=== PATIENT | male | born 1950 | race Caucasian/White ===

== ENCOUNTER → 2016-10-26 | Outpatient (CLI) | payer OTHER, MEDICARE ==
[2016-10-26 09:27] LABS: Basophils # (A) 0.1 k/uL (0-0.2); Basophils % (A) 1 %; CH 28.4; CHCM 34.9; Eosinophils # (A) 0.2 k/uL (0-0.7); Eosinophils % (A) 2 %; HCT 37.6 % (39.0-53.0); HDW 3.06; HGB 12.5 gm/dL (13.0-17.5); Luc # (Auto) 0.15; Luc % (Auto) 2; Lymphocytes # (A) 1.4 k/uL (1.0-4.8); Lymphocytes % (A) 19 %; MCH 27.2 pg (25.0-35.0); MCHC 33.2 g/dL (31.0-37.0); MCV 81.8 fL (80.0-100.0); Mean Platelet Volume 6.6; Monocytes # (A) 0.6 k/uL (0-1.0); Monocytes % (A) 8 %; Neutrophils # (A) 5.3 k/uL (1.3-7.7); Neutrophils % (A) 69 %; RBC 4.59 m/uL (4.30-5.90); RDW 15.2 % (11.5-15.5); WBC 7.6 k/uL (3.8-10.6); WBC (Perox) 7.52
[2016-10-26 09:46] LABS: Appearance,Urine Clear (Clear); Bilirubin,Urine Negative (Negative); Glucose,Urine (UA) 2+ (Negative); Ketones,Urine Negative (Negative); Leukocyte Esterase,Urine Negative (Negative); Mucus,Urine Rare /hpf; Nitrite,Urine Negative (Negative); Particle Count 812; Protein,Urine 1+ (Negative); UA Billing (MACRO vs. MICRO) MICRO; Urobilinogen,Urine <2.0 mg/dL (<2.0); WBC,Urine <1 /hpf (0-5)
[2016-10-26 10:35] LABS: Anion Gap 12 mmol/L; Blood Urea Nitrogen 31 mg/dL (9-20); Calcium 9.2 mg/dL (8.4-10.2); Carbon Dioxide 23 mmol/L (22-30); Chloride 106 mmol/L (98-107); Glucose 249 mg/dL (74-99); Iron 45 ug/dL (49-181); Magnesium 2.1 mg/dL (1.6-2.3); Non-African American GFR(MDRD) 51 (>60 ml/min/1.73 sqM); Phosphorous 3.5 mg/dL (2.5-4.5); Potassium 4.9 mmol/L (3.5-5.1); Sodium 141 mmol/L (137-145)
[2016-10-26 10:44] LABS: Total Iron Binding Capacity 301 ug/dL (261-462)
== END | disposition home or self-care (01) ==
LOC: LABWHC1 08:26
PROVIDERS: ATTEND Nurse Practitioner Family
DX: N18.3 Chronic kidney disease, stage 3 (moderate) (principal); N25.81 Secondary hyperparathyroidism of renal origin; E55.9 Vitamin D deficiency, unspecified; M10.9 Gout, unspecified; N39.0 Urinary tract infection, site not specified
CPT/HCPCS: 36415; 80048; 81001; 82306; 82728; 83540; 83550; 83735; 83970; 84100; 84550; 85025

== ENCOUNTER → 2017-04-22 | Outpatient (CLI) | payer OTHER | END | disposition home or self-care (01) | LOC: LABWHC1 11:40 | PROVIDERS: ATTEND Surgery | DX: N18.3 Chronic kidney disease, stage 3 (moderate) (principal) | CPT/HCPCS: 36415; 82565 ==

== ENCOUNTER → 2017-04-22 | Outpatient (CLI) | payer OTHER ==
--- NOTE | 2017-04-22 13:26 | MR ---
EXAMINATION TYPE: MR brain wo/w con DATE OF EXAM: 04/22/2017 1:09 PM COMPARISON: None. HISTORY: melanoma of trunk, metastatic disease TECHNIQUE: Multiplanar, multiecho imaging of the brain was obtained with and without intravenous adm inistration of 19 mL intravenous MultiHance. FINDINGS: Midline structures are unremarkable. There is a normal craniocervical junction. Echoplanar diffusion imaging is normal. There are normal vascular flow voids. The orbits are normal. There is no evidence of a CP angle mass lesion. There are both punctate and confluent periventricular white matter changes on the FLAIR dataset most consistent with a combination of small vessel disease and chronic ischemic change. There is no mass e ffect, midline shift or intracranial blood. Following intravenous administration of gadolinium, I do not see evidence of abnormal enhancement. IMPRESSION: 1. NO ACUTE INTRACRANIAL DISEASE. 2. BOTH PUNCTATE AND CONFLUENT PERIVENTRICULAR WHITE MATTER CHANGES COMPATIBLE A COMBINATION OF SMALL VESSEL DISEASE AND CHRONIC ISCHEMIC CHANGE.
== END | disposition home or self-care (01) ==
LOC: RADMRIMAIN 11:22
PROVIDERS: ATTEND Nurse Practitioner
DX: I67.82 Cerebral ischemia (principal); I73.9 Peripheral vascular disease, unspecified; R90.82 White matter disease, unspecified; C43.59 Malignant melanoma of other part of trunk; N18.3 Chronic kidney disease, stage 3 (moderate)
CPT/HCPCS: 70553; A9577

== ENCOUNTER → 2017-04-23 | Outpatient (CLI) | payer OTHER ==
[2017-04-23 07:29] LABS: Appearance,Urine Clear (Clear); Bilirubin,Urine Negative (Negative); Glucose,Urine (UA) 3+ (Negative); Ketones,Urine Negative (Negative); Leukocyte Esterase,Urine Negative (Negative); Nitrite,Urine Negative (Negative); PH, Urine 5.5 (5.0-8.0); Protein,Urine Negative (Negative); Specific Gravity,Urine 1.009 (1.001-1.035); UA Billing (MACRO vs. MICRO) CHEM; Urobilinogen,Urine <2.0 mg/dL (<2.0)
[2017-04-23 07:30] LABS: Basophils % (A) 1 %; CH 28.8; CHCM 34.5; Eosinophils # (A) 0.2 k/uL (0-0.7); Eosinophils % (A) 3 %; HCT 38.5 % (39.0-53.0); HDW 3.08; HGB 13.2 gm/dL (13.0-17.5); Luc # (Auto) 0.17; Luc % (Auto) 3; Lymphocytes # (A) 1.3 k/uL (1.0-4.8); Lymphocytes % (A) 20 %; MCH 28.6 pg (25.0-35.0); MCHC 34.2 g/dL (31.0-37.0); MCV 83.6 fL (80.0-100.0); Mean Platelet Volume 6.5; Monocytes # (A) 0.4 k/uL (0-1.0); Monocytes % (A) 6 %; Neutrophils # (A) 4.4 k/uL (1.3-7.7); Neutrophils % (A) 68 %; RBC 4.61 m/uL (4.30-5.90); RDW 13.9 % (11.5-15.5); WBC 6.5 k/uL (3.8-10.6); WBC (Perox) 6.82
[2017-04-23 11:09] LABS: Anion Gap 9 mmol/L; Blood Urea Nitrogen 43 mg/dL (9-20); Calcium 9.1 mg/dL (8.4-10.2); Carbon Dioxide 21 mmol/L (22-30); Chloride 109 mmol/L (98-107); Glucose 259 mg/dL (74-99); Magnesium 2.1 mg/dL (1.6-2.3); Non-African American GFR(MDRD) 53 (>60 ml/min/1.73 sqM); Phosphorous 4.1 mg/dL (2.5-4.5); Sodium 139 mmol/L (137-145); Uric Acid 7.7 mg/dL (3.5-8.5)
[2017-04-23 11:26] LABS: Potassium 5.4 mmol/L (3.5-5.1)
[2017-04-23 11:50] LABS: Iron 37 ug/dL (49-181)
[2017-04-23 11:59] LABS: % Iron Saturation 12.7 % (20-50); Total Iron Binding Capacity 291 ug/dL (261-462)
== END ==
LOC: LABWHC1 07:07
PROVIDERS: ATTEND Nurse Practitioner Family
DX: N18.3 Chronic kidney disease, stage 3 (moderate) (principal); E55.9 Vitamin D deficiency, unspecified; D64.9 Anemia, unspecified; M10.9 Gout, unspecified; N39.0 Urinary tract infection, site not specified; R80.9 Proteinuria, unspecified
CPT/HCPCS: 36415; 80048; 81003; 82306; 82570; 82728; 83540; 83550; 83735; 83970; 84100; 84156; 84550; 85025

== ENCOUNTER 2017-04-30 14:42 | Emergency (ER) | payer OTHER, MEDICARE ==
--- NOTE | 2017-04-30 15:01 | ED ---
General Adult HPI - General Chief complaint: Recheck/Abnormal Lab/Rx Stated complaint: Diabetic Time Seen by Provider: 04/30/17 14:59 Source: patient, EMS, RN notes reviewed, old records reviewed Mode of arrival: EMS - History of Present Illness Initial comments: This is a 67-year-old male to the ER for evaluation of low blood sugar. Patient was brought in as he found with altered mental status while driving home today. Patient has diabetes and to confirm this morning and has not eaten throughout the day. Patient is studying secondary colonoscopy scheduled for tomorrow. He went to his doctor's office today without difficulty. At this time has no complaints. Patient's blood sugar per EMS was in the 50s. At this time he is awake and alert with no complaints - Related Data Home Medications Medication Instructions Recorded Confirmed amLODIPine [Norvasc] 10 mg PO DAILY 12/06/15 04/30/17 Aspirin 81 mg PO DAILY 04/20/16 04/30/17 Atorvastatin [Lipitor] 80 mg PO DAILY 04/30/17 04/30/17 Carvedilol [Coreg] 25 mg PO DAILY 04/30/17 04/30/17 Ergocalciferol [Vitamin D2] 50,000 unit PO MO 04/30/17 04/30/17 Insulin Detemir [Levemir] 80 unit SQ BID 04/30/17 04/30/17 Latanoprost [Xalatan 0.005%] 1 drop LEFT EYE HS 04/30/17 04/30/17 Lisinopril [Prinivil] 20 mg PO BID 04/30/17 04/30/17 Prasugrel [Effient] 10 mg PO DIRECTED 04/30/17 04/30/17 Allergies Allergy/AdvReac Type Severity Reaction Status Date / Time No Known Allergies Allergy Verified 04/30/17 15:23 Review of Systems ROS Statement: Those systems with pertinent positive or pertinent negative responses have been documented in the HPI. ROS Other: All systems not noted in ROS Statement are negative. Past Medical History Past Medical History: Coronary Artery Disease (CAD), Diabetes Mellitus, Eye Disorder, GERD/Reflux, Hyperlipidemia, Hypertension, Osteoarthritis (OA), Renal Disease Additional Past Medical History / Comment(s): Coronary artery disease and a previous nonsustained elevation myocardial infarction on November 2015 requiring 2 stents being inserted in the LAD, insulin-dependent diabetes mellitus, glaucoma in the left eye, stage III chronic kidney disease, hypertension, hyperlipidemia , GE reflux, osteoarthritis History of Any Multi-Drug Resistant Organisms: None Reported Past Surgical History: Adenoidectomy, Appendectomy, Heart Catheterization, Heart Catheterization With Stent, Orthopedic Surgery, Tonsillectomy Additional Past Surgical History / Comment(s): 12/07/15 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 He was at age 70. Mother Family Medical History: No Reported History Additional Family Medical History / Comment(s): Mother is alive and is 88yrs old. General Exam General appearance: alert, in no apparent distress Head exam: Present: atraumatic, normocephalic, normal inspection Eye exam: Present: normal appearance, PERRL, EOMI. Absent: scleral icterus, conjunctival injection, periorbital swelling ENT exam: Present: normal exam, mucous membranes moist Neck exam: Present: normal inspection. Absent: tenderness, meningismus, lymphadenopathy Respiratory exam: Present: normal lung sounds bilaterally. Absent: respiratory distress, wheezes, rales, rhonchi, stridor Cardiovascular Exam: Present: regular rate, normal rhythm, normal heart sounds. Absent: systolic murmur, diastolic murmur, rubs, gallop, clicks GI/Abdominal exam: Present: soft, normal bowel sounds. Absent: distended, tenderness, guarding, rebound, rigid Extremities exam: Present: normal inspection, full ROM, normal capillary refill. Absent: tenderness, pedal edema, joint swelling, calf tenderness Back exam: Present: normal inspection Neurological exam: Present: alert, oriented X3, CN II-XII intact Psychiatric exam: Present: normal affect, normal mood Skin exam: Present: warm, dry, intact, normal color. Absent: rash Course Vital Signs 04/30/17 04/30/17 14:46 16:17 Temperature 97 F L Pulse Rate 20 L 55 L Respiratory 20 16 Rate Blood Pressure 133/65 124/73 O2 Sat by Pulse 99 99 Oximetry - Reevaluation(s) Reevaluation #1: 04/30/17 16:46 Patient remains awake and alert throughout ER stay EKG Findings - EKG Comments: EKG Findings:: EKG shows sinus bradycardia 47, W[place] 242, QRS 92, QTc 442 Medical Decision Making - Medical Decision Making 67 male here for evaluation of altered mental status, hypoglycemia. Medication reactions patient did take his insulin dose this morning and has not eaten throughout the day of a colonoscopy scheduled for tomorrow. Patient's glucose is stabilized here in emergency room, patient's awake alert without complaint. Patient will be discharged home - Lab Data Result diagrams: 04/30/17 15:57 04/30/17 15:57 Lab Results 04/30/17 04/30/17 04/30/17 Range/Units 15:00 15:57 15:57 WBC 7.2 (3.8-10.6) k/uL RBC 4.78 (4.30-5.90) m/uL Hgb 13.5 (13.0-17.5) gm/dL Hct 40.1 (39.0-53.0) % MCV 83.9 (80.0-100.0) fL MCH 28.2 (25.0-35.0) pg MCHC 33.6 (31.0-37.0) g/dL RDW 15.0 (11.5-15.5) % Plt Count 203 (150-450) k/uL Neutrophils % 78 % Lymphocytes % 14 % Monocytes % 5 % Eosinophils % 2 % Basophils % 0 % Neutrophils # 5.6 (1.3-7.7) k/uL Lymphocytes # 1.0 (1.0-4.8) k/uL Monocytes # 0.3 (0-1.0) k/uL Eosinophils # 0.1 (0-0.7) k/uL Basophils # 0.0 (0-0.2) k/uL Sodium (137-145) mmol/L Potassium (3.5-5.1) mmol/L Chloride (98-107) mmol/L Carbon Dioxide (22-30) mmol/L Anion Gap mmol/L BUN (9-20) mg/dL Creatinine (0.66-1.25) mg/dL Est GFR (MDRD) Af Amer (>60 ml/min/1.73 sqM) Est GFR (MDRD) Non-Af (>60 ml/min/1.73 sqM) Glucose (74-99) mg/dL POC Glucose (mg/dL) 169 H (75-99) mg/dL POC Glu Hard Tile Setter Apprentice Harry Baca Calcium (8.4-10.2) mg/dL Phosphorus (2.5-4.5) mg/dL Magnesium (1.6-2.3) mg/dL Total Bilirubin (0.2-1.3) mg/dL AST (17-59) U/L ALT (21-72) U/L Alkaline Phosphatase (38-126) U/L Total Creatine Kinase 64 (55-170) U/L CK-MB (CK-2) 1.0 (0.0-2.4) ng/mL CK-MB (CK-2) Rel Index 1.6 Troponin I <0.012 (0.000-0.034) ng/mL Total Protein (6.3-8.2) g/dL Albumin (3.5-5.0) g/dL 04/30/17 Range/Units 15:57 WBC (3.8-10.6) k/uL RBC (4.30-5.90) m/uL Hgb (13.0-17.5) gm/dL Hct (39.0-53.0) % MCV (80.0-100.0) fL MCH (25.0-35.0) pg MCHC (31.0-37.0) g/dL RDW (11.5-15.5) % Plt Count (150-450) k/uL Neutrophils % % Lymphocytes % % Monocytes % % Eosinophils % % Basophils % % Neutrophils # (1.3-7.7) k/uL Lymphocytes # (1.0-4.8) k/uL Monocytes # (0-1.0) k/uL Eosinophils # (0-0.7) k/uL Basophils # (0-0.2) k/uL Sodium 146 H (137-145) mmol/L Potassium 4.4 (3.5-5.1) mmol/L Chloride 111 H (98-107) mmol/L Carbon Dioxide 23 (22-30) mmol/L Anion Gap 12 mmol/L BUN 31 H (9-20) mg/dL Creatinine 1.40 H (0.66-1.25) mg/dL Est GFR (MDRD) Af Amer >60 (>60 ml/min/1.73 sqM) Est GFR (MDRD) Non-Af 51 (>60 ml/min/1.73 sqM) Glucose 103 H (74-99) mg/dL POC Glucose (mg/dL) (75-99) mg/dL POC Glu Hard Tile Setter Apprentice ID Calcium 9.6 (8.4-10.2) mg/dL Phosphorus 3.1 (2.5-4.5) mg/dL Magnesium 2.3 (1.6-2.3) mg/dL Total Bilirubin 0.8 (0.2-1.3) mg/dL AST 18 (17-59) U/L ALT 38 (21-72) U/L Alkaline Phosphatase 130 H (38-126) U/L Total Creatine Kinase (55-170) U/L CK-MB (CK-2) (0.0-2.4) ng/mL CK-MB (CK-2) Rel Index Troponin I (0.000-0.034) ng/mL Total Protein 7.4 (6.3-8.2) g/dL Albumin 4.3 (3.5-5.0) g/dL Disposition Clinical Impression: Hypoglycemia Disposition: HOME SELF-CARE Condition: Good Instructions: Hypoglycemia in a Person with Diabetes (ED) Referrals: Mohit Pereira MD [STAFF PHYSICIAN] - 1-2 days
[2017-04-30 15:03] LABS: Glucose,Whole Blood 169 mg/dL (75-99)
[2017-04-30] MEDS ORDERED: DEXTROSE 5%-0.45% NACL 1,000 ML IV ONE (15:37)
[2017-04-30 16:11] LABS: Basophils % (A) 0 %; CH 29.4; CHCM 35.2; Eosinophils # (A) 0.1 k/uL (0-0.7); Eosinophils % (A) 2 %; HCT 40.1 % (39.0-53.0); HDW 3.07; HGB 13.5 gm/dL (13.0-17.5); Luc # (Auto) 0.11; Luc % (Auto) 2; Lymphocytes % (A) 14 %; MCH 28.2 pg (25.0-35.0); MCHC 33.6 g/dL (31.0-37.0); MCV 83.9 fL (80.0-100.0); Mean Platelet Volume 6.8; Monocytes # (A) 0.3 k/uL (0-1.0); Monocytes % (A) 5 %; Neutrophils # (A) 5.6 k/uL (1.3-7.7); Neutrophils % (A) 78 %; RBC 4.78 m/uL (4.30-5.90); WBC 7.2 k/uL (3.8-10.6); WBC (Perox) 6.88
[2017-04-30 16:18] VITALS: BP 124/73; PULSE 55; RESP 16; TEMP 97
[2017-04-30 16:25] LABS: ALT 38 U/L (21-72); AST 18 U/L (17-59); Alkaline Phosphatase 130 U/L (38-126); Anion Gap 12 mmol/L; Blood Urea Nitrogen 31 mg/dL (9-20); Calcium 9.6 mg/dL (8.4-10.2); Carbon Dioxide 23 mmol/L (22-30); Chloride 111 mmol/L (98-107); Glucose 103 mg/dL (74-99); Magnesium 2.3 mg/dL (1.6-2.3); Non-African American GFR(MDRD) 51 (>60 ml/min/1.73 sqM); Phosphorous 3.1 mg/dL (2.5-4.5); Potassium 4.4 mmol/L (3.5-5.1); Sodium 146 mmol/L (137-145); Total Bilirubin 0.8 mg/dL (0.2-1.3); Total Protein 7.4 g/dL (6.3-8.2)
[2017-04-30 16:29] LABS: Creatine Kinase 64 U/L (55-170)
[2017-04-30 16:41] LABS: Troponin I <0.012 ng/mL (0.000-0.034)
== END 2017-04-30 17:04 | disposition home or self-care (01) ==
LOC: EC 14:42
DX: E11.649 Type 2 diabetes mellitus with hypoglycemia without coma (principal); I25.10 Atherosclerotic heart disease of native coronary artery without angina pectoris; E78.5 Hyperlipidemia, unspecified; E11.22 Type 2 diabetes mellitus with diabetic chronic kidney disease; I12.9 Hypertensive chronic kidney disease with stage 1 through stage 4 chronic kidney disease, or unspecified chronic kidney disease; N18.3 Chronic kidney disease, stage 3 (moderate); I25.2 Old myocardial infarction; M19.90 Unspecified osteoarthritis, unspecified site; Z79.4 Long term (current) use of insulin; Z79.82 Long term (current) use of aspirin; Z79.899 Other long term (current) drug therapy
CPT/HCPCS: 36415; 80053; 82550; 82553; 83735; 84100; 84484; 85025; 93005; 96360; 99285

== ENCOUNTER → 2017-08-06 | Outpatient (CLI) | payer OTHER, MEDICARE | END | disposition home or self-care (01) | LOC: LABWHC1 10:19 | PROVIDERS: ATTEND Nurse Practitioner Adult Health | DX: E78.2 Mixed hyperlipidemia (principal); I25.810 Atherosclerosis of coronary artery bypass graft(s) without angina pectoris | CPT/HCPCS: 36415; 83704 ==

== ENCOUNTER 2017-08-19 08:14 | Day surgery (SDC) | payer MEDICARE, OTHER ==
[2017-08-16 09:37] VITALS: BMI 35.6
[~2017-08-19 08:14] MED LIST: LACTATED RINGERS 1,000 ML IV SCH
[2017-08-19 08:56] VITALS: RESP 18; TEMP 98.2
[2017-08-19] MEDS ORDERED: LIDOCAINE 1% 20 ML VIAL (10MG/ML) FOR IV START INTRADERMA ONE (09:00)
[2017-08-19 09:07] LABS: Glucose,Whole Blood 166 mg/dL (75-99)
[2017-08-19] MEDS ORDERED: PROPOFOL 10 MG/ML 20 ML VIAL IV ONE (09:10)
[2017-08-19] MEDS ORDERED: LIDOCAINE 1% INJ 10MG/ML (20 ML MDV) ONE (09:10)
--- NOTE | 2017-08-19 10:08 | P.PCN ---
Date of Procedure: 08/19/17 Procedure(s) Performed: Procedure: Colonoscopy and polypectomy. Preoperative diagnosis: History of polyps. Postoperative diagnosis: Multiple polyps in the right colon, hepatic flexure and sigmoid snared. Preparation: HalfLytely prep. Sedation: Was provided by anesthesia. Brief clinical history: The patient is a 67-year-old male who is referred for this evaluation because of finding of polyps on a prior exam in [place] last April without polypectomy at the time because he was on anticoagulants. He was advised to have a repeat evaluation off his anticoagulant medications in the near future. He may have had a prior colonoscopy years back but has not been having any abdominal complaints, bleeding or anemia. He underwent surgery for melanoma on his back with lymph node resection in his groin this year. Procedure: With the patient on his left lateral decubitus position and after informed consent and adequate sedation, the perianal area was inspected and it did not show any fissures or fistulas. There were no masses felt on digital rectal examination. The Olympus CFQ 160L video colonoscope was then inserted in the rectum in the usual fashion and advanced to the cecum. There were 2 polyps in the right colon, one around the hepatic flexure and 2 in the sigmoid ranging in size from 1 cm to around 2 cm. All were snared and retrieved either by suction or by suction to the tip of the endoscope with withdrawal of the endoscope and restart of the procedure. No other polyps or cancer were seen. I retroflexed the endoscope in the rectum before the endoscope was withdrawn. The patient tolerated the procedure well. Plan: The patient was reassured. Will await pathology results. I anticipate repeating this exam in 3 years. He will follow up with you as planned.
[2017-08-19 10:34] VITALS: BP 150/70; PULSE 52
== END 2017-08-19 10:45 | disposition home or self-care (01) ==
LOC: ORWHC2ENDO 08:14
DX: Z12.11 Encounter for screening for malignant neoplasm of colon (principal); C18.7 Malignant neoplasm of sigmoid colon; D12.2 Benign neoplasm of ascending colon; D12.3 Benign neoplasm of transverse colon; I25.10 Atherosclerotic heart disease of native coronary artery without angina pectoris; K21.9 Gastro-esophageal reflux disease without esophagitis; M19.90 Unspecified osteoarthritis, unspecified site; I12.9 Hypertensive chronic kidney disease with stage 1 through stage 4 chronic kidney disease, or unspecified chronic kidney disease; E11.22 Type 2 diabetes mellitus with diabetic chronic kidney disease; N18.3 Chronic kidney disease, stage 3 (moderate); H40.9 Unspecified glaucoma; E78.5 Hyperlipidemia, unspecified; Z79.82 Long term (current) use of aspirin; Z79.02 Long term (current) use of antithrombotics/antiplatelets; Z79.4 Long term (current) use of insulin; Z79.899 Other long term (current) drug therapy; Z86.010 Personal history of colon polyps; Z85.820 Personal history of malignant melanoma of skin; Z95.5 Presence of coronary angioplasty implant and graft
CPT/HCPCS: 45385; 88305; J2001; J2704

== ENCOUNTER 2017-08-20 06:40 | Day surgery (SDC) | payer MEDICARE, OTHER ==
[2017-08-16 15:08] VITALS: BMI 35.6
[2017-08-20] MEDS: CYCLOPENTOLATE 1% OPHTH SOLN 2 ML BTL OP ONE ×3 (07:01→07:23)
[2017-08-20] MEDS: KETOROLAC 0.5% OPHTH DROPS 5 ML BTL OP ONE ×3 (07:05→07:26)
[2017-08-20 07:06] VITALS: RESP 16; TEMP 97.8
[2017-08-20] MEDS: PHENYLEPHRINE 10% OPHTH DROPS 5 ML BTL OP ONE ×3 (07:08→07:30)
[2017-08-20] MEDS ORDERED: LIDOCAINE 1% 20 ML VIAL (10MG/ML) FOR IV START INTRADERMA ONE (07:08)
[2017-08-20 07:14] LABS: Glucose,Whole Blood 112 mg/dL (75-99)
[2017-08-20] MEDS ORDERED: TETRACAINE 0.5% OPHTH (PF) DROPS 4 ML BTL LEFT EYE ONE (08:19)
[2017-08-20] MEDS ORDERED: PROPOFOL 10 MG/ML 20 ML VIAL IV ONE (08:19)
[2017-08-20] MEDS ORDERED: EPINEPHrine (PF) 0.5 ML in BALANCED SALT IRRIG SOLN COMB2 500 ML IRRIGATION ONE (08:31)
[2017-08-20] MEDS ORDERED: HYALURONATE SODIUM INTRAOCULAR 1 EACH SYRINGE (10MG/ML) INTRAOCULA ONE ×2 (08:34)
[2017-08-20] MEDS ORDERED: BALANCED SALT IRRIG SOLN COMB2 15 ML IRRIG.SOLN IRRIGATION ONE (08:34)
--- NOTE | 2017-08-20 08:54 | P.OP ---
Date of Procedure: 08/20/17 Procedure(s) Performed: PREOPERATIVE DIAGNOSIS: Cataract and glaucoma left eye. POSTOPERATIVE DIAGNOSIS: Cataract and glaucoma, left eye. OPERATION: Phacoemulsification cataract, left eye, placement of iStent, left eye. DESCRIPTION OF PROCEDURE: The patient was taken to the preoperative holding area. Intravenous Propofol was given so as to bring about adequate sedation. The following mixture was given for local anesthesia: 5 mL of 2% lidocaine, 5 mL of 0.75% Marcaine, and 1 mL of Wydase. Approximately 4 mL was injected in the retrobulbar space of the surgical eye. Additional 1 mL was then directed to the temporal area of the surgical eye. This was performed to allow adequate neurological block of the facial muscles. The patient was revived and then taken into the operative room. The patient was prepped and draped in the usual sterile manner for the operative eye. A lid speculum was put into position. The conjunctiva was resected back from the limbus in the 12 o'clock position. Bleeding was controlled with electrocautery. A #69 blade was then used and a half-thickness scleral incision approximately 1-mm posterior to the limbus was made on bare sclera. This was shelved in the clear cornea using a crescent knife. The steep axis of astigmatism was marked using a pre-inked corneal marking device. Next a 15-degree blade was used to make a stab incision at the 3 o'clock position at the corneolimbal interface. Keratome blade was then used and the superior wound was extended into the anterior chamber. Viscoelastic was injected into the anterior chamber and to maintain its form. An iStent was introduced and placed in the inferior trabecular meshwork. Next, a cystotome was used and a continuous anterior capsulotomy was made without difficulty. Hydrodissection using a blunt cannula and BSS was performed. Phaco probe was then employed and a groove extending from 12 to 6 o'clock in the lens was created. A Garrison wand was used through the stab incision so as to perform a divide and conquer technique. Next an irrigation aspiration probe was utilized and any residual cortex was removed from the eye. Again, viscoelastic was injected into the anterior chamber. An Luis Fernando toric posterior chamber lens implant was placed in the cartridge and injected into the anterior chamber without difficulty. The Snackrey hook was utilized to spin the lens into position and this was again performed without any difficulty. The irrigation and aspiration probe was again employed and any residual viscoelastic was removed from the eye. Then BSS was injected into the limbal stab incision and the anterior chamber re-inflated. The conjunctiva was reapproximated using electrocautery. One drop of 0.25% Timoptic was placed over the corneal along with TobraDex ophthalmic ointment. Two sterile patches and a Uribe eye shield were taped into position. The patient was transported to the recovery room in stable condition. Pathology: none sent Condition: stable Disposition: same day
[2017-08-20 09:02] LABS: Glucose,Whole Blood 119 mg/dL (75-99)
[2017-08-20 09:14] VITALS: BP 158/80; PULSE 51
[2017-08-20] MEDS ORDERED: TIMOLOL 0.5% OPHTH SOLN (PF) 0.2 ML DROPERETTE OP ONE (23:00)
[2017-08-20] MEDS ORDERED: BUPIVACAINE (PF) 0.75% 5 ML, LIDOCAINE 4% (PF) 5 ML, HYALURONIDASE, HUMAN RECOMB 150 UNIT MISCELLANE ONE ×3 (23:00)
[2017-08-20] MEDS ORDERED: GENTAMICIN/PREDNISOL AC OPHTH OINT 3.5GM OPHTHALMIC ONE (23:00)
== END 2017-08-20 09:40 | disposition home or self-care (01) ==
LOC: OR 06:40
PROVIDERS: ATTEND Ophthalmology
DX: H26.9 Unspecified cataract (principal); H40.9 Unspecified glaucoma; I10 Essential (primary) hypertension; E11.9 Type 2 diabetes mellitus without complications; Z79.4 Long term (current) use of insulin; Z79.899 Other long term (current) drug therapy

== ENCOUNTER 2017-10-22 09:15 | Day surgery (SDC) | payer OTHER ==
[2017-10-15 14:47] VITALS: BMI 33.9
[~2017-10-22 09:15] MED LIST changes: -LACTATED RINGERS 1,000 ML IV SCH; +LIDOCAINE 1% 20 ML VIAL (10MG/ML) FOR IV START INTRADERMA PRN; +ONDANSETRON 4 MG/2 ML VIAL IVP ONE
[2017-10-22] MEDS: PHENYLEPHRINE 10% OPHTH DROPS 5 ML BTL OP ONE ×3 (10:32→10:49)
[2017-10-22 10:34] VITALS: RESP 18; TEMP 98.2
[2017-10-22] MEDS: CYCLOPENTOLATE 1% OPHTH SOLN 2 ML BTL OP ONE ×3 (10:35→10:54)
[2017-10-22] MEDS: FLURBIPROFEN 0.03% OPHTH DROPS 2.5 ML BTL OP ONE ×3 (10:38→10:56)
[2017-10-22 10:57] LABS: Glucose,Whole Blood 157 mg/dL (75-99)
[2017-10-22] MEDS ORDERED: LIDOCAINE 1% 20 ML VIAL (10MG/ML) FOR IV START INTRADERMA ONE (11:03)
[2017-10-22] MEDS: LACTATED RINGERS 1,000 ML IV SCH ×2 (11:04→11:05)
[2017-10-22] MEDS ORDERED: PROPOFOL 10 MG/ML 20 ML VIAL IV ONE (11:07)
[2017-10-22] MEDS ORDERED: LIDOCAINE 1% INJ 10MG/ML (20 ML MDV) ONE (11:07)
[2017-10-22] MEDS ORDERED: EPINEPHrine (PF) 0.5 ML in BALANCED SALT IRRIG SOLN COMB2 500 ML IRRIGATION ONE (11:09)
[2017-10-22] MEDS: BUPIVACAINE (PF) 0.75% 5 ML, HYALURONIDASE, HUMAN RECOMB 150 UNIT, LIDOCAINE 2% (PF) 10... MISCELLANE ONE ×6 (11:09→11:12)
[2017-10-22] MEDS ORDERED: HYALURONATE SODIUM INTRAOCULAR 1 EACH SYRINGE (10MG/ML) INTRAOCULA ONE (11:10)
[2017-10-22] MEDS ORDERED: BALANCED SALT IRRIG SOLN COMB2 15 ML IRRIG.SOLN IRRIGATION ONE (11:10)
--- NOTE | 2017-10-22 11:40 | P.OP ---
Date of Procedure: 10/22/17 Procedure(s) Performed: PREOPERATIVE DIAGNOSIS: Cataract and Glaucoma, right eye. POSTOPERATIVE DIAGNOSIS: Cataract and Glaucoma, right eye. OPERATION: Phacoemulsification cataract, placement of lens implant, and insertion of I-stent right eye. DESCRIPTION OF PROCEDURE: The patient was taken to the preoperative holding area. Intravenous Propofol was given so as to bring about adequate sedation. The following mixture was given for local anesthesia: 5 mL of 2% lidocaine, 5 mL of 0.75% Marcaine, and 1 mL of Wydase. Approximately 4 mL was injected in the retrobulbar space of the surgical eye. Additional 1 mL was then directed to the temporal area of the surgical eye. This was performed to allow adequate neurological block of the facial muscles. The patient was revived and then taken into the operative room. The patient was prepped and draped in the usual sterile manner for the operative eye. A lid speculum was put into position. The conjunctiva was resected back from the limbus in the 12 o'clock position. Bleeding was controlled with electrocautery. A #69 blade was then used and a half-thickness scleral incision approximately 1-mm posterior to the limbus was made on bare sclera. This was shelved in the clear cornea using a crescent knife. The steep axis of astigmatism was marked using a pre-inked corneal marking device. Next a 15-degree blade was used to make a stab incision at the 3 o'clock position at the corneolimbal interface. Keratome blade was then used and the superior wound was extended into the anterior chamber. Viscoelastic was injected into the anterior chamber and to maintain its form. Using a handheld gonioprism for guidance, an I-stent was inserted into the inferior Schlemm's canal. Next, a cystotome was used and a continuous anterior capsulotomy was made without difficulty. Hydrodissection using a blunt cannula and BSS was performed. Phaco probe was then employed and a groove extending from 12 to 6 o'clock in the lens was created. A Garrison wand was used through the stab incision so as to perform a divide and conquer technique. Next an irrigation aspiration probe was utilized and any residual cortex was removed from the eye. Again, viscoelastic was injected into the anterior chamber. An Luis Fernando toric posterior chamber lens implant was placed in the cartridge and injected into the anterior chamber without difficulty. The Kendall hook was utilized to spin the lens into position and this was again performed without any difficulty. The irrigation and aspiration probe was again employed and any residual viscoelastic was removed from the eye. Then BSS was injected into the limbal stab incision and the anterior chamber re- inflated. The conjunctiva was reapproximated using electrocautery. One drop of 0.25% Timoptic was placed over the corneal along with TobraDex ophthalmic ointment. Two sterile patches and a Uribe eye shield were taped into position. The patient was transported to the recovery room in stable condition. Pathology: none sent Condition: stable Disposition: same day
[2017-10-22 11:41] VITALS: PULSE 47
[2017-10-22 11:57] VITALS: BP 137/70
[2017-10-22 12:05] LABS: Glucose,Whole Blood 175 mg/dL (75-99)
[2017-10-22] MEDS ORDERED: TIMOLOL 0.5% OPHTH SOLN (PF) 0.2 ML DROPERETTE OP ONE (23:00)
[2017-10-22] MEDS ORDERED: GENTAMICIN/PREDNISOL AC OPHTH OINT 3.5GM OPHTHALMIC ONE (23:00)
== END 2017-10-22 12:23 | disposition home or self-care (01) ==
LOC: OR 09:15
PROVIDERS: ATTEND Ophthalmology
DX: E11.36 Type 2 diabetes mellitus with diabetic cataract (principal); Z79.4 Long term (current) use of insulin; I25.119 Atherosclerotic heart disease of native coronary artery with unspecified angina pectoris; I10 Essential (primary) hypertension; Z95.1 Presence of aortocoronary bypass graft; I49.9 Cardiac arrhythmia, unspecified; I25.2 Old myocardial infarction; Z79.899 Other long term (current) drug therapy; Z79.82 Long term (current) use of aspirin
CPT/HCPCS: 66984; 66183; V2787; C1780; C1783; J3470; J2001 ×2; J0171; J2704

== ENCOUNTER 2018-08-16 11:38 | Emergency (ER) | payer OTHER ==
--- NOTE | 2018-08-16 12:07 | ED ---
General Adult HPI - General Chief complaint: Extremity Problem,Nontraumatic Stated complaint: Leg swelling Time Seen by Provider: 08/16/18 11:50 Source: patient, RN notes reviewed Mode of arrival: wheelchair Limitations: no limitations - History of Present Illness Initial comments: Patient is a pleasant [age]-year-old male presenting to the emergency Department with complaints for left leg swelling. Symptoms have progressed over the past several days. Patient is having some discomfort associated with this that is mild. No fevers. Patient has noticed a little bit of redness today. No chest pain or dyspnea. Patient was diagnosed with skin lesion that was determined to be melanoma approximately one year ago. This was removed. Patient did have 22 lymph nodes removed from his right leg and 2 were questionable, the rest were negative. Patient recently had a PET scan with a questionable lesion in the liver. Patient has no history of previous left leg swelling. Patient does have a history of some right leg swelling previously that he attributes to her lymph nodes removal that was only on the right side. - Related Data Home Medications Medication Instructions Recorded Confirmed amLODIPine [Norvasc] 10 mg PO DAILY 12/06/15 10/22/17 Aspirin 81 mg PO DAILY 04/20/16 10/22/17 Atorvastatin [Lipitor] 80 mg PO DAILY 04/30/17 10/22/17 Carvedilol [Coreg] 25 mg PO DAILY 04/30/17 10/22/17 Insulin Detemir [Levemir] 80 unit SQ BID 04/30/17 10/22/17 Latanoprost [Xalatan 0.005%] 1 drop LEFT EYE HS 04/30/17 10/22/17 Lisinopril [Prinivil] 20 mg PO BID 04/30/17 10/22/17 Prasugrel [Effient] 10 mg PO DAILY 04/30/17 10/22/17 Hydrochlorothiazide 25 mg PO DAILY 08/16/17 10/22/17 Previous Rx's Medication Instructions Recorded Apixaban [Eliquis] 5 mg PO BID #74 tab 08/16/18 Allergies Allergy/AdvReac Type Severity Reaction Status Date / Time No Known Allergies Allergy Verified 08/16/18 11:48 Review of Systems ROS Statement: Those systems with pertinent positive or pertinent negative responses have been documented in the HPI. ROS Other: All systems not noted in ROS Statement are negative. Constitutional: Denies: fever Eyes: Denies: eye pain ENT: Denies: ear pain Respiratory: Denies: cough, dyspnea Cardiovascular: Denies: chest pain Endocrine: Denies: fatigue Gastrointestinal: Denies: abdominal pain Genitourinary: Denies: dysuria Musculoskeletal: Denies: back pain Skin: Reports: as per HPI Past Medical History Past Medical History: Coronary Artery Disease (CAD), Cancer, Diabetes Mellitus, Eye Disorder, GERD/Reflux, GI Bleed, Hyperlipidemia, Hypertension, Myocardial Infarction ([place]), Osteoarthritis (OA), Renal Disease Additional Past Medical History / Comment(s): glaucoma in the left eye, stage III chronic kidney disease, Melanoma on back R ear and abd removed. Last Myocardial Infarction Date:: 2015 History of Any Multi-Drug Resistant Organisms: None Reported Past Surgical History: Adenoidectomy, Appendectomy, Heart Catheterization, Heart Catheterization With Stent, Orthopedic Surgery, Tonsillectomy Additional Past Surgical History / Comment(s): tumor from L shoulder, bilateral carpel tunnel, colonoscopy, R knee arthroscopy;CA removed from R ear back & abdomen; cataract L eye, liver biopsy on 08/14/18 Past Anesthesia/Blood Transfusion Reactions: No Reported Reaction Date of Last Stent Placement:: 12/07/15 Past Psychological History: No Psychological Hx Reported Smoking Status: Never smoker Past Alcohol Use History: Occasional Past Drug Use History: None Reported - Past Family History Father Family Medical History: No Reported History Additional Family Medical History / Comment(s): Father was a heavy smoker. He was at age 70. Mother Family Medical History: No Reported History Additional Family Medical History / Comment(s): Mother is alive and is 88yrs old. General Exam Limitations: no limitations General appearance: alert, in no apparent distress Head exam: Present: atraumatic Eye exam: Present: normal appearance, PERRL ENT exam: Present: normal oropharynx Neck exam: Present: normal inspection Respiratory exam: Present: normal lung sounds bilaterally Cardiovascular Exam: Present: regular rate, normal rhythm Expanded Peripheral pulses: 2+: Femoral (L), Posterior Tibialis (R), Posterior Tibialis ( L), Dorsalis Pedis (R), Dorsalis Pedis (L) GI/Abdominal exam: Present: soft. Absent: tenderness Extremities exam: Present: other (Left leg swelling from the ankle to the knee and minimally of the foot. There is some mild calf tenderness. Cap refill less than 2 seconds. Sensation intact. Strength intact. Pedal pulses intact. Minimal lateral erythema) Neurological exam: Present: alert Psychiatric exam: Present: normal affect, normal mood Skin exam: Present: erythema (Minimal left lower leg erythema laterally.) Course Vital Signs 08/16/18 11:45 Temperature 98.4 F Pulse Rate 70 Respiratory 16 Rate Blood Pressure 178/78 O2 Sat by Pulse 95 Oximetry - Reevaluation(s) Reevaluation #1: 08/16/18 13:16 Patient confirms he is only on aspirin for anticoagulation at this time. Medical Decision Making - Radiology Data Radiology results: image reviewed (Left lower extremity ultrasound positive for DVT.) Disposition Clinical Impression: Deep vein thrombosis of lower extremity Disposition: HOME SELF-CARE Condition: Stable Instructions: Deep Vein Thrombosis (ED) Additional Instructions: Please follow-up in the week with your oncologist and primary care physician. Return for chest pain, difficulty breathing, worsening symptoms or other concerns. Prescriptions: Apixaban [Eliquis] 5 mg PO BID #74 tab Is patient prescribed a controlled substance at d/c from ED?: No Referrals: Tremaine Pereira MD [Primary Care Provider] - 1-2 days Time of Disposition: 13:10
--- NOTE | 2018-08-16 12:41 | US ---
EXAMINATION TYPE: US venous doppler duplex LE LT DATE OF EXAM: 08/16/2018 11:58 AM COMPARISON: NONE CLINICAL HISTORY: Pain. hard painful left lower leg SIDE PERFORMED: left TECHNIQUE: The lower extremity deep venous system is examined utilizing real time linear array sonog rikki with graded compression, doppler sonography and color-flow sonography. VESSELS IMAGED: External Iliac Vein (EIV) Common Femoral Vein Deep Femoral Vein Greater Saphenous Vein * Femoral Vein Popliteal Vein Small Saphenous Vein * Proximal Calf Veins (* superficial vessels) Left Leg: occlusive thrombus within the left pop vns extending into the left calf; + for LLE DVT No popliteal fossa lesion is seen. IMPRESSION: THIS EXAMINATION IS POSITIVE FOR DVT FROM THE POPLITEAL VEIN DISTALLY.
[2018-08-16] MEDS ORDERED: APIXABAN 5 MG TAB PO STA (13:09)
[2018-08-16] MEDS ORDERED: LISINOPRIL 10 MG TAB PO STA (13:41)
[2018-08-16 13:47] VITALS: BP 182/99; PULSE 63; RESP 18; TEMP 98.2
== END 2018-08-16 13:52 | disposition home or self-care (01) ==
LOC: EC 11:38
DX: I82.432 Acute embolism and thrombosis of left popliteal vein (principal); I25.10 Atherosclerotic heart disease of native coronary artery without angina pectoris; E11.22 Type 2 diabetes mellitus with diabetic chronic kidney disease; I12.9 Hypertensive chronic kidney disease with stage 1 through stage 4 chronic kidney disease, or unspecified chronic kidney disease; N18.3 Chronic kidney disease, stage 3 (moderate); I25.2 Old myocardial infarction; E78.5 Hyperlipidemia, unspecified; Z79.4 Long term (current) use of insulin; Z79.82 Long term (current) use of aspirin; Z79.02 Long term (current) use of antithrombotics/antiplatelets; Z79.899 Other long term (current) drug therapy; Z85.820 Personal history of malignant melanoma of skin; Z95.5 Presence of coronary angioplasty implant and graft
CPT/HCPCS: 99283

== ENCOUNTER 2020-10-18 13:26 | Inpatient (IN) | payer OTHER, MEDICARE ==
[2020-10-18 13:47] LABS: Glucose,Whole Blood 151 mg/dL (75-99)
--- NOTE | 2020-10-18 13:59 | ED ---
General Adult HPI - General Chief complaint: Fall Stated complaint: Fall Time Seen by Provider: 10/18/20 13:30 Source: patient, EMS, RN notes reviewed, old records reviewed Mode of arrival: EMS Limitations: no limitations - History of Present Illness Initial comments: This is a 70-year-old male who is a diabetic and also bypass surgery. Patient comes in today because he was found down next to his bed. When EMS arrived his blood glucose was 51. Patient's given some oral glucose but did not change his value he was in the 40s on the second reading. The patient was given D50 via the IV. Patient states he got up earlier to take a pain pill one pack to bed he does not remember falling out of bed. Patient was found next to his bed with his head under the end table and he had a hematoma on his forehead. Patient states she's got no planes. Patient states his heart rate is normally about 50. Patient denies any recent fever chills or cough. Patient denies any chest pain or palpitations. Patient denies abdominal pain patient denies nausea vomiting diarrhea. Patient denies any pain currently. Patient denies headache. Patient denies any numbness or weakness. - Related Data Home Medications Medication Instructions Recorded Confirmed amLODIPine [Norvasc] 10 mg PO DAILY 12/06/15 10/18/20 Atorvastatin [Lipitor] 80 mg PO DAILY 04/30/17 10/18/20 Carvedilol [Coreg] 25 mg PO DAILY 04/30/17 10/18/20 Insulin Detemir (Levemir) [Levemir] 135 unit SQ BID 04/30/17 10/18/20 Acetaminophen Tab [Tylenol Tab] 500 mg PO Q6H PRN 10/18/20 10/18/20 Aspirin EC [Ecotrin Low Dose] 81 mg PO DAILY 10/18/20 10/18/20 Furosemide [Lasix] 40 mg PO DAILY 10/18/20 10/18/20 Previous Rx's Medication Instructions Recorded Apixaban [Eliquis] 5 mg PO BID #74 tab 08/16/18 Allergies Allergy/AdvReac Type Severity Reaction Status Date / Time No Known Allergies Allergy Verified 10/18/20 15:12 Review of Systems ROS Statement: Those systems with pertinent positive or pertinent negative responses have been documented in the HPI. ROS Other: All systems not noted in ROS Statement are negative. Past Medical History Past Medical History: Coronary Artery Disease (CAD), Cancer, Diabetes Mellitus, Eye Disorder, GERD/Reflux, GI Bleed, Hyperlipidemia, Hypertension, Myocardial Infarction ([place]), Osteoarthritis ([place]), Renal Disease Additional Past Medical History / Comment(s): glaucoma in the left eye, stage III chronic kidney disease, Melanoma on back R ear and abd removed. Last Myocardial Infarction Date:: 2015 History of Any Multi-Drug Resistant Organisms: None Reported Past Surgical History: Adenoidectomy, Appendectomy, Heart Catheterization, Heart Catheterization With Stent, Orthopedic Surgery, Tonsillectomy Additional Past Surgical History / Comment(s): tumor from L shoulder, bilateral carpel tunnel, colonoscopy, R knee arthroscopy;CA removed from R ear back & abdomen; cataract L eye, liver biopsy on 08/14/18 Past Anesthesia/Blood Transfusion Reactions: No Reported Reaction Date of Last Stent Placement:: 12/07/15 Past Psychological History: No Psychological Hx Reported Past Alcohol Use History: Occasional Past Drug Use History: None Reported - Past Family History Father Family Medical History: No Reported History Additional Family Medical History / Comment(s): Father was a heavy smoker. He was at age 70. Mother Family Medical History: No Reported History Additional Family Medical History / Comment(s): Mother is alive and is 88yrs old. General Exam - General Exam Comments Initial Comments: GENERAL: Patient is well-developed and well-nourished. Patient is nontoxic and well- hydrated and is in mild distress. ENT: Neck is soft and supple. No significant lymphadenopathy is noted. Oropharynx is clear. Moist mucous membranes. Neck has full range of motion without eliciting any pain. EYES: The sclera were anicteric and conjunctiva were pink and moist. Extraocular movements were intact and pupils were equal round and reactive to light. Eyelids were unremarkable. PULMONARY: Unlabored respirations. Good breath sounds bilaterally. No audible rales rhonchi or wheezing was noted. CARDIOVASCULAR: There is a regular rate and rhythm without any murmurs gallops or rubs. ABDOMEN: Soft and nontender with normal bowel sounds. SKIN: Patient has a small hematoma the left side of his forehead. NEUROLOGIC: Patient is alert and oriented x3. Cranial nerves II through XII are grossly intact. Motor and sensory are also intact. Normal speech, volume and content. Symmetrical smile. MUSCULOSKELETAL: Normal extremities with adequate strength and full range of motion. LYMPHATICS: No significant lymphadenopathy is noted PSYCHIATRIC: Normal psychiatric evaluation. Limitations: no limitations Course Vital Signs 10/18/20 10/18/20 10/18/20 13:30 14:47 16:21 Temperature 97.7 F Pulse Rate 47 L 50 L 51 L Respiratory 18 18 18 Rate Blood Pressure 122/68 125/84 127/61 O2 Sat by Pulse 99 98 98 Oximetry Medical Decision Making - Medical Decision Making EKG shows sinus bradycardia at 40 bpm IA interval 152 QRS is 84 Q-T intervals 544 QTC is 45. Patient's EKG shows no ST segment elevation or depression. When compared to old EKGs the rate is similar. Patient's chest x-ray shows some interstitial disease patient has no complaint of difficulty breathing no complete chest pain but cough or fever. I will recommend patient follow-up with primary medical care doctor CT head and C-spine show no acute abnormality. Patient was alert and oriented 4 the whole time he was in the emergency de partment. However patient's renal function had worsened and Dr. Pereira wanted the patient admitted to admitted the patient. - Lab Data Result diagrams: 10/18/20 13:33 10/18/20 13:33 Lab Results 10/18/20 10/18/20 10/18/20 Range/Units 13:33 13:33 13:38 WBC 3.5 L (3.8-10.6) k/uL RBC 4.22 L (4.30-5.90) m/uL Hgb 11.3 L (13.0-17.5) gm/dL Hct 32.3 L (39.0-53.0) % MCV 76.7 L (80.0-100.0) fL MCH 26.8 (25.0-35.0) pg MCHC 34.9 (31.0-37.0) g/dL RDW 14.6 (11.5-15.5) % Plt Count 204 (150-450) k/uL MPV 7.3 Neutrophils % 67 % Lymphocytes % 19 % Monocytes % 11 % Eosinophils % 0 % Basophils % 1 % Neutrophils # 2.3 (1.3-7.7) k/uL Lymphocytes # 0.7 L (1.0-4.8) k/uL Monocytes # 0.4 (0-1.0) k/uL Eosinophils # 0.0 (0-0.7) k/uL Basophils # 0.0 (0-0.2) k/uL Poikilocytosis Slight Microcytosis Slight Sodium 141 (137-145) mmol/L Potassium 4.3 (3.5-5.1) mmol/L Chloride 117 H (98-107) mmol/L Carbon Dioxide 17 L (22-30) mmol/L Anion Gap 7 mmol/L BUN 55 H (9-20) mg/dL Creatinine 2.46 H (0.66-1.25) mg/dL Est GFR (CKD-EPI)AfAm 30 (>60 ml/min/1.73 sqM) Est GFR (CKD-EPI)NonAf 26 (>60 ml/min/1.73 sqM) Glucose 144 H (74-99) mg/dL POC Glucose (mg/dL) 151 H (75-99) mg/dL POC Glu Railroad Cook ID Cary, Angie Calcium 7.9 L (8.4-10.2) mg/dL Total Bilirubin 0.7 (0.2-1.3) mg/dL AST 34 (17-59) U/L ALT 29 (4-49) U/L Alkaline Phosphatase 100 (38-126) U/L Total Protein 6.3 (6.3-8.2) g/dL Albumin 3.0 L (3.5-5.0) g/dL Urine Color Urine Appearance (Clear) Urine pH (5.0-8.0) Ur Specific [place] (1.001-1.035) Urine Protein (Negative) Urine Glucose (UA) (Negative) Urine Ketones (Negative) Urine Blood (Negative) Urine Nitrite (Negative) Urine Bilirubin (Negative) Urine Urobilinogen (<2.0) mg/dL Ur Leukocyte Esterase (Negative) Urine RBC (0-5) /hpf Urine WBC (0-5) /hpf Ur Squamous Epith Cells (0-4) /hpf Amorphous Sediment (None) /hpf Hyaline Casts (0-2) /lpf Urine Mucus (None) /hpf 10/18/20 10/18/20 10/18/20 Range/Units 14:39 15:47 16:19 WBC (3.8-10.6) k/uL RBC (4.30-5.90) m/uL Hgb (13.0-17.5) gm/dL Hct (39.0-53.0) % MCV (80.0-100.0) fL MCH (25.0-35.0) pg MCHC (31.0-37.0) g/dL RDW (11.5-15.5) % Plt Count (150-450) k/uL MPV Neutrophils % % Lymphocytes % % Monocytes % % Eosinophils % % Basophils % % Neutrophils # (1.3-7.7) k/uL Lymphocytes # (1.0-4.8) k/uL Monocytes # (0-1.0) k/uL Eosinophils # (0-0.7) k/uL Basophils # (0-0.2) k/uL Poikilocytosis Microcytosis Sodium (137-145) mmol/L Potassium (3.5-5.1) mmol/L Chloride (98-107) mmol/L Carbon Dioxide (22-30) mmol/L Anion Gap mmol/L BUN (9-20) mg/dL Creatinine (0.66-1.25) mg/dL Est GFR (CKD-EPI)AfAm (>60 ml/min/1.73 sqM) Est GFR (CKD-EPI)NonAf (>60 ml/min/1.73 sqM) Glucose (74-99) mg/dL POC Glucose (mg/dL) 166 H 215 H (75-99) mg/dL POC Glu Railroad Cook ID Cary, Angie Cary, Angie Calcium (8.4-10.2) mg/dL Total Bilirubin (0.2-1.3) mg/dL AST (17-59) U/L ALT (4-49) U/L Alkaline Phosphatase (38-126) U/L Total Protein (6.3-8.2) g/dL Albumin (3.5-5.0) g/dL Urine Color Yellow Urine Appearance Cloudy (Clear) Urine pH 6.0 (5.0-8.0) Ur Specific [place] 1.016 (1.001-1.035) Urine Protein 3+ H (Negative) Urine Glucose (UA) 1+ H (Negative) Urine Ketones Negative (Negative) Urine Blood Small H (Negative) Urine Nitrite Negative (Negative) Urine Bilirubin Negative (Negative) Urine Urobilinogen <2.0 (<2.0) mg/dL Ur Leukocyte Esterase Negative (Negative) Urine RBC 3 (0-5) /hpf Urine WBC 2 (0-5) /hpf Ur Squamous Epith Cells <1 (0-4) /hpf Amorphous Sediment Occasional H (None) /hpf Hyaline Casts 3 H (0-2) /lpf Urine Mucus Rare H (None) /hpf Disposition Clinical Impression: Fall, Hypoglycemia, Acute kidney injury Disposition: ADMITTED IP TO THIS HOSP Additional Instructions: Patient should follow-up with his primary medical care doctor for repeat chest x-rays or possibly CT of the chest. Referrals: Mohit Pereira MD [Primary Care Provider] - 1-2 days Time of Disposition: 16:48
[2020-10-18 14:20] LABS: Basophils % (A) 1 %; Eosinophils % (A) 0 %; HCT 32.3 % (39.0-53.0); HGB 11.3 gm/dL (13.0-17.5); Lymphocytes # (A) 0.7 k/uL (1.0-4.8); Lymphocytes % (A) 19 %; MCH 26.8 pg (25.0-35.0); MCHC 34.9 g/dL (31.0-37.0); MCV 76.7 fL (80.0-100.0); Mean Platelet Volume 7.3; Microcytosis Slight; Monocytes # (A) 0.4 k/uL (0-1.0); Monocytes % (A) 11 %; Neutrophils # (A) 2.3 k/uL (1.3-7.7); Neutrophils % (A) 67 %; Platelet Count 204 k/uL (150-450); Poikilocytosis Slight; RBC 4.22 m/uL (4.30-5.90); RDW 14.6 % (11.5-15.5); WBC 3.5 k/uL (3.8-10.6)
--- NOTE | 2020-10-18 14:23 | CT ---
EXAMINATION TYPE: CT brain plaak arias DATE OF EXAM: 10/18/2020 COMPARISON: None HISTORY: Fall today with injury CT DLP: 1674.9 mGycm, Automated exposure control for dose reduction was used. CONTRAST: None CT of the brain is performed utilizing 3 mm thick sections through the posterior fossa and 3 mm thick sections through the remaining calvarium. Study is performed within 24 hours of arrival to the hospital. No abnormal hyperdensity is present to suggest an acute intracranial hemorrhage. No mass lesion is evident. No acute infarcts are evident. Mild periventricular white matter hypodensity is present, likely on t he basis of chronic white matter ischemic changes. Ventricles and sulci are appropriate for the patient age. There is scattered areas of mucosal thickening within the maxillary sinuses within the posterior righ t ethmoid air cells. Sphenoid and frontal sinuses are clear.There is soft tissue swelling along the f rontal region near the bridge of the nose. No underlying fracture is identified. IMPRESSIONS: 1. No acute intracranial process. 2. Mild chronic appearing periventricular white matter ischemic changes. 3. Soft tissue swelling over the bridge of the nose and frontal region CT cervical spine. COMPARISON: None CT of the cervical spine is performed in the axial plane at 2 mm thick sections. Reconstructed image s in the coronal, and sagittal plane are reviewed on the computer. No acute fractures are evident. Spina bifida occulta of C1 is noted. Vertebral body alignment is normal. Small anterior vertebral body spurs are present within the upper cervical spine. Disc heights are preserved. Vertebral body heights are preserved. No spinal canal stenosis is evident. No neural foraminal stenosis is evident. IMPRESSIONS: 1. No suspicious acute osseous abnormality cervical spine
[2020-10-18 14:34] LABS: Calcium 7.9 mg/dL (8.4-10.2); Potassium 4.3 mmol/L (3.5-5.1); Total Bilirubin 0.7 mg/dL (0.2-1.3); Total Protein 6.3 g/dL (6.3-8.2)
[2020-10-18 14:41] LABS: Glucose,Whole Blood 166 mg/dL (75-99)
--- NOTE | 2020-10-18 14:48 | XR ---
EXAMINATION TYPE: XR chest 2V DATE OF EXAM: 10/18/2020 COMPARISON: 04/29/2016 TECHNIQUE: PA and lateral views submitted. HISTORY: Pain post fall FINDINGS: The lungs are clear and there is no pneumothorax, pleural effusion, or focal pneumonia. The heart i s enlarged there is postoperative change. There is a coarsened interstitium. Improved aeration at the left lung base. No sizable pleural effusion or pneumothorax. Arthropathy of the shoulder. Hypertroph ic and degenerative change of the spine. IMPRESSION: 1. Cardiomegaly with a coarsened interstitium correlate for chronic interstitial lung disease or bron chitis. Correlate clinically to exclude an interstitial pneumonitis. Short-term follow-up CT scan cou ld be obtained on an outpatient basis as clinically warranted.
[2020-10-18 16:11] LABS: Amorphous Sediment,Urine Occasional /hpf; Appearance,Urine Cloudy (Clear); Bilirubin,Urine Negative (Negative); Blood,Urine Small (Negative); Color,Urine Yellow; Glucose,Urine (UA) 1+ (Negative); Hyaline Casts,Urine 3 /lpf (0-2); Ketones,Urine Negative (Negative); Leukocyte Esterase,Urine Negative (Negative); Mucus,Urine Rare /hpf; Nitrite,Urine Negative (Negative); Protein,Urine 3+ (Negative); RBC,Urine 3 /hpf (0-5); Specific Gravity,Urine 1.016 (1.001-1.035); Squamous Epithelial Cell,Urine <1 /hpf (0-4); Urobilinogen,Urine <2.0 mg/dL (<2.0); WBC,Urine 2 /hpf (0-5)
[2020-10-18 16:26] LABS: Glucose,Whole Blood 215 mg/dL (75-99)
[2020-10-18] MEDS ORDERED: SODIUM CHLORIDE 0.9% 1,000 ML IV ONE (16:51)
[2020-10-18] MEDS: INSULIN ASPART (NovoLOG) 100 UNIT/ML VIAL SQ SCH ×2 (18:14→21:01)
[2020-10-18] MEDS: AZITHROMYCIN 500 MG in SODIUM CHLORIDE 0.9% 250 ML IVPB SCH (18:16)
[2020-10-18] MEDS: ASCORBIC ACID 500 MG TAB PO SCH (18:17)
[2020-10-18] MEDS: CHOLECALCIFEROL 25 MCG (1000 IU) TABLET PO SCH (18:17)
[2020-10-18] MEDS: ASPIRIN 81 MG PO SCH (18:17)
[2020-10-18 18:25] LABS: Glucose,Whole Blood 189 mg/dL (75-99)
[2020-10-18 20:54] LABS: Glucose,Whole Blood 186 mg/dL (75-99)
[2020-10-18] MEDS: APIXABAN 5 MG TAB PO SCH (21:00)
[2020-10-18] MEDS: ZINC SULFATE 220 MG CAP PO SCH (21:00)
[2020-10-18] MEDS: DEXAMETHASONE SOD PHOSPHATE 10 MG/ML 1 ML VIAL IV SCH (21:26)
--- NOTE | 2020-10-18 22:41 | CT ---
EXAMINATION TYPE: CT chest wo con DATE OF EXAM: 10/18/2020 COMPARISON: None HISTORY: Cough, +covid. CT DLP: 475.7 mGycm Automated exposure control for dose reduction was used. Images obtained from the thoracic inlet to the diaphragm with no contrast. There is patchy interstitial and airspace peripheral pulmonary infiltrates in the upper and lower lob es. These are more concentrated in the lower lobes. There is small left pleural effusion. Heart size is fairly normal. There is no pericardial effusion. There are numerous enlarged mediastinal lymph nod es that measure up to 2 cm. There is coronary artery calcification. Thoracic aorta shows no aneurysm. There is some spurring in the thoracic spine. There is no compression fracture. There are sternal wir es. Upper abdominal soft tissues are intact. There are calcified gallstones. IMPRESSION: Patchy bilateral pulmonary infiltrates consistent with pneumonia. Mild mediastinal adenopathy.
--- NOTE | 2020-10-18 23:17 | HP ---
HISTORY AND PHYSICAL This is a 70-year-old white male, diabetic, who has had bypass surgery. He came in with positive COVID pneumonia after he fell at home with his sugars in the low 100s. He was given D50 through the IV. He got up early to take a pill and went back to bed, fell out of bed, hit his head. Hematoma on his forehead. He is positive for COVID pneumonia. COVID treatment will be ordered. His home insulin will be held and he will be receiving Accu-Cheks protocol. He had elevated BUN and creatinine, prerenal azotemia, for which increased IV fluids overnight will be given. Will monitor electrolytes and renal function in the morning. HOME MEDICINES: 1. Norvasc 10 mg daily. 2. Lipitor 80 mg daily. 3. Coreg 25 mg daily. 4. Levemir 135 units twice a day. 5. Lasix 40 mg daily. 6. Ecotrin 81 mg daily. 7. Acetaminophen 500 q.6 p.r.n. ALLERGIES: NO KNOWN DRUG ALLERGIES. PAST MEDICAL HISTORY: Coronary artery disease, cancer, diabetes mellitus, eye disorder, GERD, GI bleed, dyslipidemia, hypertension, myocardial infarction, osteoarthritis, renal disease. SURGERIES: Appendectomy, adenoidectomy, heart catheterization, orthopedic surgery, tonsillectomy, tumor from left shoulder, bilateral carpal tunnel, right knee arthroscopy, cancer of the right ear, back and abdomen. FAMILY HISTORY: Father a heavy smoker. Mother is alive, 86 years old. PHYSICAL EXAMINATION: male in no acute distress. CARDIOVASCULAR: S1, S2. LUNGS: Scattered. Pupils equal, round and reactive to light and accommodation. GI: Soft. Normal bowel sounds. SKIN: No rash, excoriation, bruising. MUSCULOSKELETAL: Full range of motion. LYMPH: No lymphadenopathy. PSYCH: Normal. Temperature 97.7, saturation 98% to 99%, blood pressure 120s over 60s, pulse 47-51, respiratory rate 16-18. White count is 3.5, hemoglobin 11.3, BUN 55, creatinine 2.46. Albumin is 3.0, glucose 144, carbon dioxide 17. ASSESSMENT: 1. Fall. 2. Hypoglycemia. 3. COVID pneumonia. 4. Acute kidney injury due to prerenal azotemia, acute tubular necrosis. Give fluids overnight. Treat for COVID pneumonia. Steroids, Decadron, azithromycin, zinc, vitamin C, vitamin D. Prognosis guarded. MMODL / IJN: [id number] /
[2020-10-19 07:12] LABS: Glucose,Whole Blood 174 mg/dL (75-99)
[2020-10-19 07:16] LABS: Basophils % (A) 0 %; Eosinophils % (A) 0 %; HCT 29.2 % (39.0-53.0); Lymphocytes # (A) 0.4 k/uL (1.0-4.8); Lymphocytes % (A) 14 %; MCH 26.7 pg (25.0-35.0); MCHC 34.3 g/dL (31.0-37.0); MCV 77.8 fL (80.0-100.0); Mean Platelet Volume 6.8; Monocytes # (A) 0.1 k/uL (0-1.0); Monocytes % (A) 3 %; Neutrophils # (A) 2.2 k/uL (1.3-7.7); Neutrophils % (A) 82 %; Platelet Count 216 k/uL (150-450); Poikilocytosis Slight; RBC 3.75 m/uL (4.30-5.90); RDW 14.9 % (11.5-15.5); WBC 2.7 k/uL (3.8-10.6)
[2020-10-19] MEDS: DEXAMETHASONE SOD PHOSPHATE 10 MG/ML 1 ML VIAL IV SCH (08:12)
[2020-10-19] MEDS: INSULIN ASPART (NovoLOG) 100 UNIT/ML VIAL SQ SCH ×4 (08:15→20:48)
[2020-10-19] MEDS: ASCORBIC ACID 500 MG TAB PO SCH (08:15)
[2020-10-19] MEDS: CHOLECALCIFEROL 25 MCG (1000 IU) TABLET PO SCH (08:15)
[2020-10-19] MEDS: APIXABAN 5 MG TAB PO SCH ×2 (08:15→20:48)
[2020-10-19] MEDS: ZINC SULFATE 220 MG CAP PO SCH (08:16)
[2020-10-19] MEDS: ASPIRIN 81 MG PO SCH (08:16)
[2020-10-19] MEDS: ATORVASTATIN 80 MG TAB PO SCH (08:16)
[2020-10-19] MEDS: AZITHROMYCIN 500 MG in SODIUM CHLORIDE 0.9% 250 ML IVPB SCH (10:39)
[2020-10-19 11:28] LABS: Glucose,Whole Blood 442 mg/dL (75-99)
[2020-10-19] MEDS ORDERED: hydrALAZINE HCL 20 MG/ML 1 ML VIAL IVP PRN (11:56)
--- NOTE | 2020-10-19 11:59 | P.NPCON ---
History of Present Illness - Reason for Consult acute renal failure, chronic renal failure - History of Present Illness Reason for consultation: Acute kidney injury on chronic kidney disease History of present illness: Patient is a 70-year-old male seen in consultation for acute kidney injury on chronic kidney disease. Patient has chronic kidney disease stage IIIA with baseline creatinine 1.3-1.5 from 2017. This admission his creatinine is 2.46 and last from today are pending. No other records available. Patient presented to the hospital on 10/18/2020 after he was found down next to his bed. When EMS arrived, his blood sugar was low at 51. He received oral glucose as well as an amp of D50 and his sugars subsequently improved. He denies any difficulty with urination. No hematuria or dysuria. No vomiting or diarrhea. Denies regular use of nonsteroidals. He does have long-standing history of diabetes mellitus and is maintained on insulin. He was also taking oral Lasix at home which is currently held. He is maintained on normal saline at 75 mL an hour. Blood pressure a little on the higher side this morning. He did test positive for coronary 19 infection and is maintained on steroids and zinc. He is currently breathing on room air. No chest pain or shortness of breath. No cough. Vital signs are stable. General: The patient appeared well nourished and normally developed. HEENT: Head exam is unremarkable. Neck is without jugular venous distension. LUNGS: Breath sounds decreased. HEART: Rate and Rhythm are regular. ABDOMEN: Soft, nontender. EXTREMITITES: No edema. Past Medical History Past Medical History: Coronary Artery Disease (CAD), Cancer, Diabetes Mellitus, Eye Disorder, GERD/Reflux, GI Bleed, Hyperlipidemia, Hypertension, Myocardial Infarction ([place]), Osteoarthritis (OA), Renal Disease Additional Past Medical History / Comment(s): glaucoma in the left eye, stage III chronic kidney disease, Melanoma on back R ear and abd removed. Last Myocardial Infarction Date:: 2015 History of Any Multi-Drug Resistant Organisms: None Reported Past Surgical History: Adenoidectomy, Appendectomy, Heart Catheterization, Heart Catheterization With Stent, Orthopedic Surgery, Tonsillectomy Additional Past Surgical History / Comment(s): tumor from L shoulder, bilateral carpel tunnel, colonoscopy, R knee arthroscopy;CA removed from R ear back & abdomen; cataract L eye, liver biopsy on 08/14/18 Past Anesthesia/Blood Transfusion Reactions: No Reported Reaction Date of Last Stent Placement:: 12/07/15 Past Psychological History: No Psychological Hx Reported Additional Psychological History / Comment(s): Pt resides with his spouse. He works at [employer]. He is independent. Smoking Status: Never smoker Past Alcohol Use History: Occasional Past Drug Use History: None Reported - Past Family History Father Family Medical History: No Reported History Additional Family Medical History / Comment(s): Father was a heavy smoker. He was at age 70. Mother Family Medical History: No Reported History Additional Family Medical History / Comment(s): Mother is alive and is 92 yrs old. Medications and Allergies Home Medications Medication Instructions Recorded Confirmed Type amLODIPine [Norvasc] 10 mg PO DAILY 12/06/15 10/18/20 History Atorvastatin [Lipitor] 80 mg PO DAILY 04/30/17 10/18/20 History Carvedilol [Coreg] 25 mg PO DAILY 04/30/17 10/18/20 History Insulin Detemir (Levemir) [Levemir] 135 unit SQ BID 04/30/17 10/18/20 History Apixaban [Eliquis] 5 mg PO BID #74 tab 08/16/18 10/18/20 Rx Acetaminophen Tab [Tylenol Tab] 500 mg PO Q6H PRN 10/18/20 10/18/20 History Aspirin EC [Ecotrin Low Dose] 81 mg PO DAILY 10/18/20 10/18/20 History Furosemide [Lasix] 40 mg PO DAILY 10/18/20 10/18/20 History Allergies Allergy/AdvReac Type Severity Reaction Status Date / Time No Known Allergies Allergy Verified 10/18/20 15:12 Physical Exam Vitals: Vital Signs Temp Pulse Pulse Resp BP BP Pulse Ox 10/19/20 08:00 98.4 F 70 19 175/75 97 10/19/20 02:50 98.2 F 73 18 159/77 97 10/18/20 21:10 97.9 F 58 L 19 157/70 97 10/18/20 20:55 98.8 F 62 18 138/72 98 10/18/20 19:29 98.0 F 67 18 136/67 98 10/18/20 16:21 51 L 18 127/61 98 10/18/20 14:47 50 L 18 125/84 98 10/18/20 13:30 97.7 F 47 L 18 122/68 99 Intake and Output 10/18/20 10/19/20 10/19/20 22:59 06:59 14:59 Intake Total 360 Balance 360 Intake: Oral 360 Other: Voiding Method Toilet # Voids 3 Weight 92.986 kg Results - Lab Results Most recent lab results Calcium 7.9 mg/dL (8.4-10.2) L 10/18/20 13:33 10/19/20 06:40 10/18/20 13:33 Assessment and Plan Plan: Assessment: 1. Acute kidney injury versus progression of underlying chronic kidney disease. Creatinine 2.46 on admission. Patient does have chronic kidney disease stage III with baseline creatinine 1.3-1.5 from 2017. Etiology is diabetic kidney disease. 2. Hypoglycemia status post D50. Better. 3. Metabolic acidosis secondary to acute kidney injury. 4. Covid 19 infection/pneumonia maintained on steroids and zinc. 5. Diabetes mellitus. 6. Hypertension with chronic kidney disease. Exacerbated by steroids. Plan: Maintain normal saline at 75 mL an hour. Hold diuretics. Check renal ultrasound. Add hydralazine 25 mg 3 times daily. To be held for systolic blood pressure less than 130. Encourage oral intake. Avoid nephrotoxins. Continue to monitor renal function and urine output. Add oral bicarbonate. Thank you for the consultation. I will continue to follow the patient with you during his hospital stay.
[2020-10-19 12:30] LABS: African American GFR (CKD) 34.2 (60.0-200.0); Albumin 3.1 g/dL (3.80-4.90); Albumin/Globulin Ratio 1.35 (1.60-3.17); Anion Gap 9.4 mmol/L (4.00-12.00); BUN/Creat Ratio 25.91 Ratio (12.00-20.00); Calcium 7.6 mg/dL (8.7-10.3); Carbon Dioxide 17.6 mmol/L (21.6-31.8); Globulin 2.3 g/dL (1.6-3.3); Non-African American GFR(CKD) 29.5 (60.0-200.0); Potassium 4.3 mmol/L (3.5-5.5); Total Bilirubin 0.4 mg/dL (0.3-1.2); Total Protein 5.4 g/dL (6.2-8.2)
[2020-10-19] MEDS: SODIUM BICARBONATE TAB 650 MG TAB PO SCH ×3 (13:07→20:59)
--- NOTE | 2020-10-19 13:47 | US ---
EXAMINATION TYPE: US kidneys/renal and bladder DATE OF EXAM: 10/19/2020 COMPARISON: NONE CLINICAL HISTORY: linnea. LINNEA EXAM MEASUREMENTS: Right Kidney: 11.1 x 5.8 x 5.3 cm Left Kidney: 11.4 x 5.7 x 4.5 cm Right Kidney: cystic area = 1.2cm Left Kidney: cystic area = 1.5cm Bladder: possible hyperechoic area posterior wall = 1.2 x 1.1 x 1.1cm Bilateral Jets seen: no Kidneys show normal cortical medullary differentiation. Cortical echotexture is increased. In the dependent portion of the bladder there is an exophytic focus of soft tissue which likely is re lated to prostatic enlargement but is indeterminate IMPRESSION: Findings may be due to prostatic enlargement however the soft tissue in the bladder is indeterminate, medical renal disease
[2020-10-19] MEDS: hydrALAZINE HCL 25 MG TAB PO SCH ×2 (14:59→20:48)
[2020-10-19 16:49] LABS: Glucose,Whole Blood 456 mg/dL (75-99)
[2020-10-19 20:29] LABS: Glucose,Whole Blood 449 mg/dL (75-99)
[2020-10-19] MEDS: INSULIN DETEMIR (LEVEMIR) 100 UNIT/ML SYR SQ SCH (20:49)
[2020-10-19] MEDS ORDERED: INSULIN DETEMIR (LEVEMIR) 100 UNIT/ML SYR SQ SCH (21:00)
--- NOTE | 2020-10-19 23:15 | PN ---
PROGRESS NOTE [id number]-old had a nephrology consult today with Dr. Dowell for acute kidney injury, chronic kidney disease. He is positive for COVID. Sugars have been really high. We are going to restart long-acting insulin. Continue with fluid rehydration. Treat for COVID. Cardiovascular: S1, S2. Lungs: Rales at the base. Hematology: Negative Homans. Psych: Fair mood and affect. Temperature 97.7 to 98.4, pulse 70, respiratory rate 16-18, blood pressure 150 to 170s over 70s, O2 97%. ASSESSMENT: 1. Acute kidney injury. 2. Chronic kidney injury. 3. Hypoglycemia, status post D50. 4. Metabolic acidosis. 5. COVID-19 pneumonia. Continue with 75 mL/hour. Hold diuretics. Check renal ultrasound. Add hydralazine t.i.d. Encourage oral intake. Avoid nephrotoxins oral bicarb. LESLEY / UMMN: [id number] /
--- NOTE | 2020-10-19 23:38 | CONS ---
CONSULTATION DATE OF SERVICE: 10/19/2020 REASON FOR CONSULTATION: Positive COVID test. HISTORY OF PRESENT ILLNESS: The patient is a 70-year-old male who was brought into the ER yesterday by EMS after apparently the patient was noticed next to his bed with a low blood sugar. Apparently patient mentioned that he got up to get his pain medication and did not remember, was noticed to be on the side of the bed with a hematoma to the forehead. The patient was also noted to have low blood sugar in the 40s. The patient was given some orange juice and subsequently the patient was brought into the ER. The patient denies having any headache or URI symptoms. No chest pain or shortness of breath. Very minimal cough. No sputum production. No nausea, no vomiting, no abdominal pain or any diarrhea. On presentation to the hospital, the patient was afebrile. The patient was not hypoxic. He is currently 95% to 96% on room air. The patient did have leukopenia as well as lymphopenia. He did have elevated BUN and creatinine. Liver enzymes have been normal. CRP has not been checked. The patient did have a head and cervical spine CT with no evidence of any fracture. Chest x-ray shows cardiomegaly with coarse interstitium; correlate for chronic interstitial lung disease or bronchitis. The patient also had a CT of the chest which shows patchy bilateral pulmonary infiltrate consistent with pneumonia. The patient has been admitted to the hospital. The patient was started on Lovenox, dexamethasone, Rocephin, Zithromax and zinc. Infectious Disease was consulted for further management. REVIEW OF SYSTEMS: Positive points have been mentioned in the HPI. Rest of the systems are negative. PAST MEDICAL HISTORY: Coronary artery disease, diabetes mellitus, gastroesophageal reflux disease, hyperlipidemia, hypertension, DE, osteoarthritis, insufficiency. PAST SURGICAL HISTORY: Adenoidectomy, appendectomy, heart catheterization, tonsillectomy. SOCIAL HISTORY: Rarely drinks. No drug use. FAMILY HISTORY: No pertinent findings noted. ALLERGIES: NO KNOWN DRUG ALLERGIES. MEDICATIONS: The patient is currently on Rocephin, Zithromax, zinc, Levemir, NovoLog, hydralazine, Decadron, Eliquis. PHYSICAL EXAMINATION: Blood pressure 162/71 with a pulse of 74, temperature 98.3. He is 95% on room air. General description is an elderly male lying in bed in no distress. No tachypnea or accessory muscle of respiration use. HEENT: Examination shows pallor. No scleral icterus. Oral mucous membrane is dry. No pharyngeal erythema or thrush. NECK: Trachea is central. No thyromegaly. LUNGS: Unlabored breathing with decreased intensity of breath sounds. No wheeze. HEART: S1, S2. Regular rate and rhythm. ABDOMEN: Soft. No tenderness. No guarding or rigidity. EXTREMITIES: No edema of the feet. SKIN EXAMINATION: No rash or mass palpable. Neurologically the patient is awake, alert, oriented x3. Mood and affect normal. LABS: Hemoglobin is 10, white count 2.7, BUN of 57, creatinine is 2.2. DIAGNOSTIC IMPRESSION AND PLAN: Patient admitted to hospital after the patient did have a fall from the bed in this patient with no fever, no significant respiratory symptoms, no hypoxemia, with a positive COVID test and a question of possible incidental finding, though chest x-ray and the CT did show some multifocal infiltrate with concern for possible viral pneumonia; however, most likely mild, as the patient is currently not hypoxic. PLAN: 1. We will check a CRP, procalcitonin, LDH and D-dimer. 2. Continue the patient on Lovenox, Eliquis, zinc and vitamin C. 3. Droplet isolation. 4. We will follow his clinical condition and further adjust medication if needed. Thank you for this consultation. Will follow this patient along with you. DINAL / IJN: [id number] /
[2020-10-20 02:13] LABS: Glucose,Whole Blood 391 mg/dL (75-99)
[2020-10-20 06:46] LABS: Basophils % (A) 0 %; Eosinophils % (A) 0 %; HCT 27.5 % (39.0-53.0); HGB 9.2 gm/dL (13.0-17.5); Lymphocytes # (A) 0.5 k/uL (1.0-4.8); Lymphocytes % (A) 6 %; MCH 26.3 pg (25.0-35.0); MCHC 33.3 g/dL (31.0-37.0); Mean Platelet Volume 6.7; Monocytes # (A) 0.4 k/uL (0-1.0); Monocytes % (A) 6 %; Neutrophils # (A) 6.6 k/uL (1.3-7.7); Neutrophils % (A) 87 %; Platelet Count 237 k/uL (150-450); Poikilocytosis Slight; RBC 3.49 m/uL (4.30-5.90); RDW 14.8 % (11.5-15.5); WBC 7.6 k/uL (3.8-10.6)
[2020-10-20 06:51] LABS: Glucose,Whole Blood 337 mg/dL (75-99)
[2020-10-20] MEDS: ASPIRIN 81 MG PO SCH (07:22)
[2020-10-20] MEDS: INSULIN ASPART (NovoLOG) 100 UNIT/ML VIAL SQ SCH ×4 (07:22→20:55)
[2020-10-20] MEDS: AZITHROMYCIN 500 MG TAB PO SCH (07:22)
[2020-10-20] MEDS: hydrALAZINE HCL 25 MG TAB PO SCH (07:23)
[2020-10-20] MEDS: ZINC SULFATE 220 MG CAP PO SCH (07:23)
[2020-10-20] MEDS: DEXAMETHASONE SOD PHOSPHATE 10 MG/ML 1 ML VIAL IV SCH (07:23)
[2020-10-20] MEDS: ATORVASTATIN 80 MG TAB PO SCH (07:23)
[2020-10-20] MEDS: SODIUM BICARBONATE TAB 650 MG TAB PO SCH ×3 (07:23→20:54)
[2020-10-20] MEDS: ASCORBIC ACID 500 MG TAB PO SCH (07:24)
[2020-10-20] MEDS: APIXABAN 5 MG TAB PO SCH ×2 (07:24→20:54)
[2020-10-20] MEDS: CHOLECALCIFEROL 25 MCG (1000 IU) TABLET PO SCH (07:24)
[2020-10-20] MEDS: INSULIN DETEMIR (LEVEMIR) 100 UNIT/ML SYR SQ SCH ×2 (07:25→20:55)
--- NOTE | 2020-10-20 09:45 | P.PN ---
Subjective Patient is seen in follow-up for acute kidney injury on chronic kidney disease. Patient has chronic kidney disease stage IIIa with baseline creatinine 1.3-1.5 from 2017. Creatinine was 2.46 on admission and output 2.2 as of yesterday. Oral intake is good. Good urine output. No vomiting or diarrhea. Blood pressure on the higher side. Maintained on normal saline. Vital signs are stable. General: The patient appeared well nourished and normally developed. HEENT: Head exam is unremarkable. Neck is without jugular venous distension. LUNGS: Breath sounds decreased. HEART: Rate and Rhythm are regular. ABDOMEN: Soft, nontender. EXTREMITITES: No edema. Objective - Vital Signs Vital signs: Vital Signs Temp 97.6 F 10/20/20 09:40 Pulse 77 10/20/20 09:40 Resp 20 10/20/20 09:40 BP 170/75 10/20/20 09:40 Pulse Ox 96 10/20/20 09:40 Intake & Output 10/19/20 10/20/20 10/20/20 18:59 06:59 18:59 Intake Total 1440 Balance 1440 Intake: Oral 1440 Other: Voiding Method Toilet # Voids 3 2 - Labs CBC & Chem 7: 10/20/20 06:08 10/19/20 06:40 Labs: Abnormal Lab Results - Last 24 Hours (Table) 10/18/20 10/19/20 10/19/20 Range/Units 13:33 06:40 11:26 RBC (4.30-5.90) m/uL Hgb (13.0-17.5) gm/dL Hct (39.0-53.0) % MCV (80.0-100.0) fL Lymphocytes # (1.0-4.8) k/uL D-Dimer (<0.60) mg/L FEU Chloride 116 H (96-109) mmol/L Carbon Dioxide 17.6 L (21.6-31.8) mmol/L BUN 57.0 H (9.0-27.0) mg/dL Creatinine 2.2 H (0.6-1.5) mg/dL Est GFR (CKD-EPI)AfAm 34.2 L (60.0-200.0) Est GFR (CKD-EPI)NonAf 29.5 L (60.0-200.0) BUN/Creatinine Ratio 25.91 H (12.00-20.00) Ratio Glucose 167 H (70-110) mg/dL POC Glucose (mg/dL) 442 H (75-99) mg/dL Calcium 7.6 L (8.7-10.3) mg/dL Lactate Dehydrogenase 306 H (120-246) U/L Total Protein 5.4 L (6.2-8.2) g/dL Albumin 3.10 L (3.80-4.90) g/dL Albumin/Globulin Ratio 1.35 L (1.60-3.17) g/dL 10/19/20 10/19/20 10/20/20 Range/Units 16:47 20:25 02:10 RBC (4.30-5.90) m/uL Hgb (13.0-17.5) gm/dL Hct (39.0-53.0) % MCV (80.0-100.0) fL Lymphocytes # (1.0-4.8) k/uL D-Dimer (<0.60) mg/L FEU Chloride (96-109) mmol/L Carbon Dioxide (21.6-31.8) mmol/L BUN (9.0-27.0) mg/dL Creatinine (0.6-1.5) mg/dL Est GFR (CKD-EPI)AfAm (60.0-200.0) Est GFR (CKD-EPI)NonAf (60.0-200.0) BUN/Creatinine Ratio (12.00-20.00) Ratio Glucose (70-110) mg/dL POC Glucose (mg/dL) 456 H 449 H 391 H (75-99) mg/dL Calcium (8.7-10.3) mg/dL Lactate Dehydrogenase (120-246) U/L Total Protein (6.2-8.2) g/dL Albumin (3.80-4.90) g/dL Albumin/Globulin Ratio (1.60-3.17) g/dL 10/20/20 10/20/20 10/20/20 Range/Units 06:08 06:08 06:48 RBC 3.49 L (4.30-5.90) m/uL Hgb 9.2 L (13.0-17.5) gm/dL Hct 27.5 L (39.0-53.0) % MCV 79.0 L (80.0-100.0) fL Lymphocytes # 0.5 L (1.0-4.8) k/uL D-Dimer 0.70 H (<0.60) mg/L FEU Chloride (96-109) mmol/L Carbon Dioxide (21.6-31.8) mmol/L BUN (9.0-27.0) mg/dL Creatinine (0.6-1.5) mg/dL Est GFR (CKD-EPI)AfAm (60.0-200.0) Est GFR (CKD-EPI)NonAf (60.0-200.0) BUN/Creatinine Ratio (12.00-20.00) Ratio Glucose (70-110) mg/dL POC Glucose (mg/dL) 337 H (75-99) mg/dL Calcium (8.7-10.3) mg/dL Lactate Dehydrogenase (120-246) U/L Total Protein (6.2-8.2) g/dL Albumin (3.80-4.90) g/dL Albumin/Globulin Ratio (1.60-3.17) g/dL Assessment and Plan Plan: Assessment: 1. Acute kidney injury versus progression of underlying chronic kidney disease. Creatinine 2.46 on admission - 2.2 as of yesterday. Patient does have chronic kidney disease stage III with baseline creatinine 1.3-1.5 from 2017. Etiology is diabetic kidney disease. No hydronephrosis noted on kidney ultrasound. 2. Hypoglycemia status post D50. Resolved. 3. Metabolic acidosis secondary to acute kidney injury. Maintained on oral bicarbonate. 4. Covid 19 infection/pneumonia maintained on steroids and zinc. 5. Diabetes mellitus. 6. Hypertension with chronic kidney disease. Exacerbated by steroids. Plan: Decreased normal saline to 50 mL an hour. Hold diuretics. Increase hydralazine to 50 mg 3 times daily. To be held for systolic blood pressure less than 130. Encourage oral intake. Avoid nephrotoxins. Continue to monitor renal function and urine output. Morning labs pending.
[2020-10-20] MEDS: SODIUM CHLORIDE 0.9% 1,000 ML IV SCH (09:59)
[2020-10-20 11:34] LABS: Glucose,Whole Blood 208 mg/dL (75-99)
[2020-10-20 11:57] LABS: African American GFR (CKD) 32.4 (60.0-200.0); Albumin 2.8 g/dL (3.80-4.90); Albumin/Globulin Ratio 1.33 (1.60-3.17); Anion Gap 9.2 mmol/L (4.00-12.00); BUN/Creat Ratio 27.83 Ratio (12.00-20.00); C Reactive Protein 1.8 mg/dL (0.0-0.8); Calcium 7.6 mg/dL (8.7-10.3); Carbon Dioxide 15.8 mmol/L (21.6-31.8); Globulin 2.1 g/dL (1.6-3.3); Magnesium 2.2 mg/dL (1.5-2.4); Non-African American GFR(CKD) 27.9 (60.0-200.0); Potassium 4.4 mmol/L (3.5-5.5); Total Bilirubin 0.2 mg/dL (0.2-1.2); Total Protein 4.9 g/dL (6.2-8.2)
[2020-10-20] MEDS: hydrALAZINE HCL 50 MG TAB PO SCH ×2 (15:59→20:54)
[2020-10-20 16:27] LABS: Glucose,Whole Blood 234 mg/dL (75-99)
[2020-10-20 20:39] LABS: Glucose,Whole Blood 185 mg/dL (75-99)
--- NOTE | 2020-10-20 22:24 | PN ---
PROGRESS NOTE DATE OF SERVICE: 10/20/2020 REASON FOR FOLLOWUP: Positive COVID test. INTERVAL HISTORY: The patient is currently afebrile. The patient is feeling better. He is breathing more comfortably. The patient denies having any chest pain. Minimal shortness of breath. Occasional cough. No abdominal pain and no diarrhea. PHYSICAL EXAMINATION: Blood pressure 166/70 with a pulse of 89, temperature 98.7. He is 95% on room air. General description is an elderly male lying in bed in no distress. RESPIRATORY SYSTEM: Unlabored breathing with decreased intensity of breath sounds. No wheeze. HEART: S1, S2. Regular rate and rhythm. ABDOMEN: Soft. No tenderness. LABS: Hemoglobin is 9.1, white count 7.6. D-dimer is 0.70. Creatinine is 2.3. Procalcitonin is 0.20. DIAGNOSTIC IMPRESSION AND PLAN: Patient admitted to hospital after the patient did have a fall and did have a positive COVID test. The patient had no fever or hypoxemia. He did have an abnormal chest x-ray revealing some multifocal infiltrates and he did have elevated procalcitonin. Will keep the patient on Rocephin and Zithromax in addition to the dexamethasone, Lovenox, to which the patient seems to have clinically responded. Monitor his clinical course closely. MMODL / IJN: [id number] /
--- NOTE | 2020-10-20 23:32 | PN ---
PROGRESS NOTE This 70-year-old white male who had a positive Covid test. Elevated BUN and creatinine. He is feeling much better. His blood pressure 160s over 70s, pulse 89, temperature 98.7. 95 on room air. CARDIOVASCULAR S1, S2. LUNGS: Transmitted upper airway sounds. HEMATOLOGY: Negative Homans. PSYCH: Fair mood and affect. OPHTHALMOLOGIC: Pupils equal, round, reactive to light and accommodation. ASSESSMENT: 1. Covid 19 pneumonia. 2. Acute on chronic renal insufficiency. 3. Chronic kidney disease stage 3. 4. Multifocal infiltrates. 5. Elevated procalcitonin. Keep on dexamethasone, Lovenox, Rocephin azithromycin. Will be sent home once cleared by Dr. Dowell. Blood pressure is on the higher side. Maintain on normal saline. BUN is 57, creatinine is 2.2. Acute kidney injury secondary to underlying chronic kidney disease, hyperglycemia, metabolic acidosis, Covid 19 pneumonia, diabetes mellitus, hypertension. Hold diuretics. Decrease normal saline. Add hydralazine. Encourage oral intake. Avoid nephrotoxins. Check morning labs. Possible discharge home soon. MMODL / IJN: [id number] /
[2020-10-21 02:10] LABS: Glucose,Whole Blood 144 mg/dL (75-99)
[2020-10-21] MEDS: SODIUM CHLORIDE 0.9% 1,000 ML IV SCH (05:52)
[2020-10-21 06:44] LABS: Basophils % (A) 0 %; Eosinophils % (A) 0 %; HCT 27.3 % (39.0-53.0); HGB 9.3 gm/dL (13.0-17.5); Lymphocytes # (A) 0.6 k/uL (1.0-4.8); Lymphocytes % (A) 6 %; MCH 26.6 pg (25.0-35.0); MCHC 34.2 g/dL (31.0-37.0); MCV 77.7 fL (80.0-100.0); Mean Platelet Volume 7.1; Microcytosis Slight; Monocytes # (A) 0.6 k/uL (0-1.0); Monocytes % (A) 5 %; Neutrophils # (A) 9.7 k/uL (1.3-7.7); Neutrophils % (A) 88 %; Platelet Count 256 k/uL (150-450); Poikilocytosis Slight; RBC 3.52 m/uL (4.30-5.90); RDW 15.1 % (11.5-15.5)
[2020-10-21 06:59] LABS: Glucose,Whole Blood 72 mg/dL (75-99)
[2020-10-21] MEDS: INSULIN ASPART (NovoLOG) 100 UNIT/ML VIAL SQ SCH ×4 (07:20→20:54)
[2020-10-21 07:56] LABS: Glucose,Whole Blood 81 mg/dL (75-99)
[2020-10-21] MEDS: ASCORBIC ACID 500 MG TAB PO SCH (08:09)
[2020-10-21] MEDS: SODIUM BICARBONATE TAB 650 MG TAB PO SCH ×2 (08:09→20:54)
[2020-10-21] MEDS: ASPIRIN 81 MG PO SCH (08:10)
[2020-10-21] MEDS: CHOLECALCIFEROL 25 MCG (1000 IU) TABLET PO SCH (08:10)
[2020-10-21] MEDS: AZITHROMYCIN 500 MG TAB PO SCH (08:10)
[2020-10-21] MEDS: APIXABAN 5 MG TAB PO SCH ×2 (08:10→20:54)
[2020-10-21] MEDS: ATORVASTATIN 80 MG TAB PO SCH (08:10)
[2020-10-21] MEDS: hydrALAZINE HCL 50 MG TAB PO SCH ×3 (08:10→20:54)
[2020-10-21] MEDS: ZINC SULFATE 220 MG CAP PO SCH (08:10)
[2020-10-21] MEDS: DEXAMETHASONE SOD PHOSPHATE 10 MG/ML 1 ML VIAL IV SCH (08:11)
[2020-10-21 08:45] LABS: Glucose,Whole Blood 107 mg/dL (75-99)
[2020-10-21] MEDS: INSULIN DETEMIR (LEVEMIR) 100 UNIT/ML SYR SQ SCH ×2 (08:54→09:16)
[2020-10-21 10:39] LABS: African American GFR (CKD) 34.2 (60.0-200.0); Albumin/Globulin Ratio 1.5 (1.60-3.17); BUN/Creat Ratio 30.91 Ratio (12.00-20.00); Calcium 7.8 mg/dL (8.7-10.3); Non-African American GFR(CKD) 29.5 (60.0-200.0); Potassium 3.9 mmol/L (3.5-5.5); Total Bilirubin 0.2 mg/dL (0.3-1.2)
[2020-10-21 11:35] LABS: Glucose,Whole Blood 87 mg/dL (75-99)
--- NOTE | 2020-10-21 11:59 | P.PN ---
Subjective Patient is seen in follow-up for acute kidney injury on chronic kidney disease. Patient has chronic kidney disease stage IIIa with baseline creatinine 1.3-1.5 from 2017. Creatinine was 2.46 on admission and stable at 2.2 today. Oral intake is good. Good urine output. No vomiting or diarrhea. Covid 19 positive. Currently on room air. Vital signs are stable. General: The patient appeared well nourished and normally developed. HEENT: Head exam is unremarkable. Neck is without jugular venous distension. LUNGS: Breath sounds decreased. HEART: Rate and Rhythm are regular. ABDOMEN: Soft, nontender. EXTREMITITES: No edema. Objective - Vital Signs Vital signs: Vital Signs Temp 97.8 F 10/21/20 09:40 Pulse 67 10/21/20 09:40 Resp 18 10/21/20 09:40 BP 170/81 10/21/20 09:40 Pulse Ox 96 10/21/20 09:40 Intake & Output 10/20/20 10/21/20 10/21/20 18:59 06:59 18:59 Intake Total 200 Balance 200 Intake: Oral 200 Other: Voiding Method Toilet # Voids 3 2 1 # Bowel Movements 1 - Labs CBC & Chem 7: 10/21/20 06:30 10/21/20 06:30 Labs: Abnormal Lab Results - Last 24 Hours (Table) 10/20/20 10/20/20 10/20/20 Range/Units 06:08 16:24 20:37 WBC (3.8-10.6) k/uL RBC (4.30-5.90) m/uL Hgb (13.0-17.5) gm/dL Hct (39.0-53.0) % MCV (80.0-100.0) fL Neutrophils # (1.3-7.7) k/uL Lymphocytes # (1.0-4.8) k/uL Chloride 115 H (96-109) mmol/L Carbon Dioxide 15.8 L (21.6-31.8) mmol/L BUN 64.0 H (9.0-27.0) mg/dL Creatinine 2.3 H (0.6-1.5) mg/dL Est GFR (CKD-EPI)AfAm 32.4 L (60.0-200.0) Est GFR (CKD-EPI)NonAf 27.9 L (60.0-200.0) BUN/Creatinine Ratio 27.83 H (12.00-20.00) Ratio Glucose 325 H (70-110) mg/dL POC Glucose (mg/dL) 234 H 185 H (75-99) mg/dL Calcium 7.6 L (8.7-10.3) mg/dL Total Bilirubin (0.3-1.2) mg/dL C-Reactive Protein 1.8 H (0.0-0.8) mg/dL Total Protein 4.9 L (6.2-8.2) g/dL Albumin 2.80 L (3.80-4.90) g/dL Albumin/Globulin Ratio 1.33 L (1.60-3.17) g/dL 10/21/20 10/21/20 10/21/20 Range/Units 02:09 06:30 06:30 WBC 11.0 H (3.8-10.6) k/uL RBC 3.52 L (4.30-5.90) m/uL Hgb 9.3 L (13.0-17.5) gm/dL Hct 27.3 L (39.0-53.0) % MCV 77.7 L (80.0-100.0) fL Neutrophils # 9.7 H (1.3-7.7) k/uL Lymphocytes # 0.6 L (1.0-4.8) k/uL Chloride 120 H (96-109) mmol/L Carbon Dioxide 16.0 L (21.6-31.8) mmol/L BUN 68.0 H (9.0-27.0) mg/dL Creatinine 2.2 H (0.6-1.5) mg/dL Est GFR (CKD-EPI)AfAm 34.2 L (60.0-200.0) Est GFR (CKD-EPI)NonAf 29.5 L (60.0-200.0) BUN/Creatinine Ratio 30.91 H (12.00-20.00) Ratio Glucose (70-110) mg/dL POC Glucose (mg/dL) 144 H (75-99) mg/dL Calcium 7.8 L (8.7-10.3) mg/dL Total Bilirubin 0.2 L (0.3-1.2) mg/dL C-Reactive Protein (0.0-0.8) mg/dL Total Protein 5.0 L (6.2-8.2) g/dL Albumin 3.00 L (3.80-4.90) g/dL Albumin/Globulin Ratio 1.50 L (1.60-3.17) g/dL 10/21/20 10/21/20 Range/Units 06:57 08:43 WBC (3.8-10.6) k/uL RBC (4.30-5.90) m/uL Hgb (13.0-17.5) gm/dL Hct (39.0-53.0) % MCV (80.0-100.0) fL Neutrophils # (1.3-7.7) k/uL Lymphocytes # (1.0-4.8) k/uL Chloride (96-109) mmol/L Carbon Dioxide (21.6-31.8) mmol/L BUN (9.0-27.0) mg/dL Creatinine (0.6-1.5) mg/dL Est GFR (CKD-EPI)AfAm (60.0-200.0) Est GFR (CKD-EPI)NonAf (60.0-200.0) BUN/Creatinine Ratio (12.00-20.00) Ratio Glucose (70-110) mg/dL POC Glucose (mg/dL) 72 L 107 H (75-99) mg/dL Calcium (8.7-10.3) mg/dL Total Bilirubin (0.3-1.2) mg/dL C-Reactive Protein (0.0-0.8) mg/dL Total Protein (6.2-8.2) g/dL Albumin (3.80-4.90) g/dL Albumin/Globulin Ratio (1.60-3.17) g/dL Assessment and Plan Plan: Assessment: 1. Acute kidney injury versus progression of underlying chronic kidney disease. Creatinine 2.46 on admission - stable at 2.2. Patient does have chronic kidney disease stage III with baseline creatinine 1.3-1.5 from 2017. Etiology is diabetic kidney disease. No hydronephrosis noted on kidney ultrasound. 2. Hypoglycemia status post D50. Resolved. 3. Metabolic acidosis secondary to acute kidney injury. Maintained on oral bicarbonate. 4. Covid 19 infection/pneumonia maintained on steroids and zinc. 5. Diabetes mellitus. 6. Hypertension with chronic kidney disease. Exacerbated by steroids. Plan: Maintain normal saline at 50 mL an hour. Hold diuretics. Increase hydralazine to 100 mg 3 times daily. To be held for systolic blood pressure less than 130. Encourage oral intake. Avoid nephrotoxins. Continue to monitor renal function and urine output. Increase bicarb dose.
[2020-10-21 16:30] LABS: Glucose,Whole Blood 134 mg/dL (75-99)
--- NOTE | 2020-10-21 18:08 | PN ---
PROGRESS NOTE DATE OF SERVICE: 10/21/2020 REASON FOR FOLLOWUP: Pneumonia. INTERVAL HISTORY: The patient is currently afebrile. The patient is feeling better, breathing comfortably, currently on room air. Denies having any chest pain or shortness of breath. Minimal cough. No nausea, no vomiting, no abdominal pain or diarrhea. PHYSICAL EXAMINATION: Blood pressure 151/75, pulse of 69, temperature 98.7. He is 97% on room air. General description is an elderly male lying in bed in no distress. RESPIRATORY SYSTEM: Unlabored breathing with decreased intensity of breath sounds. No wheeze. HEART: S1, S2. Regular rate and rhythm. ABDOMEN: Soft. No tenderness. EXTREMITIES: No edema of the feet. LABS: Hemoglobin is 9.3, white count 11.0, BUN 58, creatinine 2.2. DIAGNOSTIC IMPRESSION AND PLAN: Patient admitted to the hospital after the patient had a fall and concern for possible pneumonia. The patient did have positive COVID; however, no other stigmata of the COVID infection. Did have elevated procalcitonin possible community-acquired pneumonia. Patient clinically responded to Rocephin and Zithromax; to continue and monitor his clinical course closely. MMODL / IJN: [id number] /
[2020-10-21 20:24] LABS: Glucose,Whole Blood 218 mg/dL (75-99)
[2020-10-22 02:23] LABS: Glucose,Whole Blood 188 mg/dL (75-99)
[2020-10-22] MEDS: SODIUM CHLORIDE 0.9% 1,000 ML IV SCH (04:12)
[2020-10-22 06:00] VITALS: RESP 18
--- NOTE | 2020-10-22 06:57 | PN ---
PROGRESS NOTE A 70-year-old white male with COVID pneumonia, renal insufficiency. No chest pain or shortness of breath. Minimal cough. No nausea, vomiting. Blood pressure 150s over 70s, pulse 69, temp 97, O2 97. Cardiovascular S1, S2. Lungs clear. GI soft. Hematology negative Homans. BUN is 58, creatinine 2.2, hemoglobin 9.3. ASSESSMENT: 1. Possible pneumonia. 2. COVID-19. 3. Elevated procalcitonin. Remains on antibiotics for community-acquired pneumonia. Continue current treatments. Follow up in next 24 to 48 hours for possible discharge. MMODL / IJN: [id number] /
[2020-10-22 07:16] LABS: Glucose,Whole Blood 125 mg/dL (75-99)
[2020-10-22] MEDS: INSULIN ASPART (NovoLOG) 100 UNIT/ML VIAL SQ SCH ×2 (07:51→12:43)
[2020-10-22] MEDS: DEXAMETHASONE SOD PHOSPHATE 10 MG/ML 1 ML VIAL IV SCH (07:56)
[2020-10-22] MEDS: INSULIN DETEMIR (LEVEMIR) 100 UNIT/ML SYR SQ SCH (07:57)
[2020-10-22] MEDS: ZINC SULFATE 220 MG CAP PO SCH (07:57)
[2020-10-22] MEDS: AZITHROMYCIN 500 MG TAB PO SCH (07:57)
[2020-10-22] MEDS: SODIUM BICARBONATE TAB 650 MG TAB PO SCH (07:57)
[2020-10-22] MEDS: CHOLECALCIFEROL 25 MCG (1000 IU) TABLET PO SCH (07:57)
[2020-10-22] MEDS: ASPIRIN 81 MG PO SCH (07:58)
[2020-10-22] MEDS: APIXABAN 5 MG TAB PO SCH (07:58)
[2020-10-22] MEDS: ATORVASTATIN 80 MG TAB PO SCH (07:58)
[2020-10-22] MEDS: ASCORBIC ACID 500 MG TAB PO SCH (07:58)
[2020-10-22] MEDS: hydrALAZINE HCL 50 MG TAB PO SCH (07:58)
[2020-10-22 10:10] VITALS: BP 173/79; PULSE 66; TEMP 97.8
[2020-10-22] MEDS ORDERED: amLODIPine 5 MG TAB PO SCH (10:30)
[2020-10-22 10:58] LABS: Basophils % (A) 0 %; Eosinophils % (A) 0 %; HCT 31.8 % (39.0-53.0); HGB 10.1 gm/dL (13.0-17.5); Lymphocytes # (A) 0.5 k/uL (1.0-4.8); Lymphocytes % (A) 4 %; MCH 25.3 pg (25.0-35.0); MCHC 31.8 g/dL (31.0-37.0); MCV 79.4 fL (80.0-100.0); Mean Platelet Volume 6.4; Monocytes # (A) 0.6 k/uL (0-1.0); Monocytes % (A) 4 %; Neutrophils # (A) 11.5 k/uL (1.3-7.7); Neutrophils % (A) 91 %; Platelet Count 308 k/uL (150-450); Poikilocytosis Slight; RDW 15.6 % (11.5-15.5); WBC 12.7 k/uL (3.8-10.6)
[2020-10-22 11:11] LABS: ALT 96 U/L (4-49); AST 53 U/L (17-59); African American GFR (CKD) 37 (>60 ml/min/1.73 sqM); Albumin 2.6 g/dL (3.5-5.0); Albumin/Globulin Ratio 0.9; Alkaline Phosphatase 79 U/L (38-126); Anion Gap 6 mmol/L; Blood Urea Nitrogen 62 mg/dL (9-20); Carbon Dioxide 16 mmol/L (22-30); Chloride 119 mmol/L (98-107); Globulin 2.9 g/dL; Glucose 184 mg/dL (74-99); Non-African American GFR(CKD) 32 (>60 ml/min/1.73 sqM); Potassium 4.3 mmol/L (3.5-5.1); Sodium 141 mmol/L (137-145); Total Bilirubin 0.3 mg/dL (0.2-1.3); Total Protein 5.5 g/dL (6.3-8.2)
[2020-10-22 11:29] LABS: Glucose,Whole Blood 204 mg/dL (75-99)
--- NOTE | 2020-10-22 17:59 | PN ---
PROGRESS NOTE The patient is seen for followup for acute kidney injury. Serum creatinine has been slowly decreasing with 2.46 on admission down to 2.0 now. The patient has not been eating much. PHYSICAL EXAMINATION: On examination today, blood pressure this morning was 173/79, heart rate 66 per minute, he is afebrile. Examination of the heart S1, S2. Examination of the lungs, bilateral breath sounds are heard. Decreased breath sounds at bases. Abdomen is soft, nontender. Examination of lower extremities shows no significant edema. LAB: Show sodium 141, potassium 4.3, chloride 119, CO2 is 16, BUN 62, creatinine 2.06, hemoglobin 10.1 g/dL. ASSESSMENT: 1. Acute kidney injury, nonoliguric, currently improved. 2. Chronic kidney disease stage III. Baseline creatinine about 1.5 from 2017 secondary to diabetic kidney disease. No evidence of obstruction on the ultrasound. 3. COVID-19 infection/pneumonia maintained on steroids and zinc. 4. Metabolic acidosis status post acute kidney injury. 5. Hypoglycemia status post D50, now resolved. 6. Hypertension, blood pressure remains elevated, mostly secondary to steroids. The patient is maintained on Norvasc which was just started. He is also on hydralazine. We can increase the Norvasc to 5 mg b.i.d. if blood pressure remains elevated. 7. Metabolic acidosis associated with renal failure, maintained on sodium bicarb. PLAN: Increase Norvasc if blood pressure remains elevated. Continue with sodium bicarb. Follow up as outpatient for CKD. MMODL / IJN: [id number] /
== END 2020-10-22 14:35 | disposition home or self-care (01) | DRG 177 ==
LOC: EC 13:26 → 6NMEDSUR 16:51 → 4SSUR 19:06 → OBSVTOIN 10-19 10:24 → 4SSUR 10-20 19:41
PROVIDERS: ADMIT Family Medicine; ATTEND Family Medicine
DX: U07.1 COVID-19 (principal); J12.82 Pneumonia due to coronavirus disease 2019; N17.0 Acute kidney failure with tubular necrosis; E87.2 Acidosis; E11.649 Type 2 diabetes mellitus with hypoglycemia without coma; I25.10 Atherosclerotic heart disease of native coronary artery without angina pectoris; K21.9 Gastro-esophageal reflux disease without esophagitis; E78.5 Hyperlipidemia, unspecified; M19.90 Unspecified osteoarthritis, unspecified site; E11.22 Type 2 diabetes mellitus with diabetic chronic kidney disease; I12.9 Hypertensive chronic kidney disease with stage 1 through stage 4 chronic kidney disease, or unspecified chronic kidney disease; N18.31 Chronic kidney disease, stage 3a; E11.65 Type 2 diabetes mellitus with hyperglycemia; S00.83XA Contusion of other part of head, initial encounter; W06.XXXA Fall from bed, initial encounter; H40.9 Unspecified glaucoma; Z79.01 Long term (current) use of anticoagulants; Z79.82 Long term (current) use of aspirin; Z79.4 Long term (current) use of insulin; Z79.899 Other long term (current) drug therapy; I25.2 Old myocardial infarction; Y92.009 Unspecified place in unspecified non-institutional (private) residence as the place of occurrence of the external cause; Z85.820 Personal history of malignant melanoma of skin; Z87.19 Personal history of other diseases of the digestive system; Z90.49 Acquired absence of other specified parts of digestive tract; Z90.89 Acquired absence of other organs; Z95.5 Presence of coronary angioplasty implant and graft; Z98.890 Other specified postprocedural states; Z98.42 Cataract extraction status, left eye
CPT/HCPCS: 36415; 70450; 71046; 71250; 72125; 76770; 80053; 81001; 83615; 83735; 84145; 85025; 85379; 86140; 87635; 93005; 96365; 96366; 99285

== ENCOUNTER 2020-10-28 10:32 | Emergency (ER) | payer MEDICARE, OTHER ==
[2020-10-28 10:38] VITALS: RESP 20
[2020-10-28 11:04] LABS: Glucose,Whole Blood 125 mg/dL (75-99)
--- NOTE | 2020-10-28 11:05 | ED ---
SOB HPI - General Chief Complaint: Shortness of Breath Stated Complaint: +Covid, SOB, body aches Time Seen by Provider: 10/28/20 10:44 Source: patient Mode of arrival: ambulatory Limitations: no limitations - History of Present Illness Initial Comments: Patient is a 70-year-old male that presents to the emergency department complaining of shortness of breath, not getting better fast enough. He has a past medical history significant for diabetes hypertension hyperlipidemia and several other comorbidities. He noted that he was recently discharged on 10/22/2020 from facility after being admitted for low blood sugar and positive covid. Today he noted that he is feeling well with no real complaint. . He noted that his son was a asphalt paving supervisor and told him to come in to get evaluated because he wasn't recovering fast enough from Covid. Patient was in no apparent distress or discomfort sitting up in bed. He did note that his sugar was low this morning so he skipped his insulin and ate a small breakfast.he denied any shortness of breath weakness headache nausea vomiting lethargy chest pain fever fatigue chills night sweats - Related Data Home Medications Medication Instructions Recorded Confirmed Atorvastatin [Lipitor] 80 mg PO DAILY 04/30/17 10/28/20 Carvedilol [Coreg] 25 mg PO DAILY 04/30/17 10/28/20 Acetaminophen Tab [Tylenol] 500 mg PO Q6H PRN 10/18/20 10/28/20 Aspirin EC [Ecotrin Low Dose] 81 mg PO DAILY 10/18/20 10/28/20 hydrALAZINE HCL [Apresoline] 100 mg PO TID 10/28/20 10/28/20 Previous Rx's Medication Instructions Recorded Apixaban [Eliquis] 5 mg PO BID #74 tab 08/16/18 Ascorbic Acid [Vitamin C] 1,000 mg PO DAILY tab 10/22/20 Azithromycin [Zithromax] 500 mg PO DAILY 5 Days #5 tab 10/22/20 Cholecalciferol [Vitamin D3 (25 50 mcg PO DAILY tablet 10/22/20 Mcg = 1000 Iu)] Insulin Detemir (Levemir) [Levemir] 65 unit SQ DAILY@0700 syr 10/22/20 Sodium Bicarbonate Tab 1,300 mg PO BID tab 10/22/20 Zinc Sulfate [Orazinc] 220 mg PO DAILY cap 10/22/20 amLODIPine [Norvasc] 5 mg PO DAILY 30 Days #30 tab 10/22/20 Allergies Allergy/AdvReac Type Severity Reaction Status Date / Time No Known Allergies Allergy Verified 10/28/20 11:19 Review of Systems ROS Statement: Those systems with pertinent positive or pertinent negative responses have been documented in the HPI. ROS Other: All systems not noted in ROS Statement are negative. Past Medical History Past Medical History: Coronary Artery Disease (CAD), Cancer, Diabetes Mellitus, Eye Disorder, GERD/Reflux, GI Bleed, Hyperlipidemia, Hypertension, Myocardial Infarction ([place]), Osteoarthritis (OA), Renal Disease Additional Past Medical History / Comment(s): glaucoma in the left eye, stage III chronic kidney disease, Melanoma on back R ear and abd removed, covid Last Myocardial Infarction Date:: 2015 History of Any Multi-Drug Resistant Organisms: None Reported Past Surgical History: Adenoidectomy, Appendectomy, Heart Catheterization, Heart Catheterization With Stent, Orthopedic Surgery, Tonsillectomy Additional Past Surgical History / Comment(s): tumor from L shoulder, bilateral carpel tunnel, colonoscopy, R knee arthroscopy;CA removed from R ear back & abdomen; cataract L eye, liver biopsy on 08/14/18 Past Anesthesia/Blood Transfusion Reactions: No Reported Reaction Date of Last Stent Placement:: 12/07/15 Past Psychological History: No Psychological Hx Reported Smoking Status: Never smoker Past Alcohol Use History: Occasional Past Drug Use History: None Reported - Past Family History Father Family Medical History: No Reported History Additional Family Medical History / Comment(s): Father was a heavy smoker. He was at age 70. Mother Family Medical History: No Reported History Additional Family Medical History / Comment(s): Mother is alive and is 92 yrs old. General Exam Limitations: no limitations General appearance: alert, in no apparent distress Head exam: Present: normocephalic, normal inspection, other (Left black eye from fall last week, looks like it's progressing well.) Eye exam: Present: normal appearance, PERRL, EOMI. Absent: scleral icterus, conjunctival injection, periorbital swelling ENT exam: Present: normal exam, mucous membranes moist Neck exam: Present: normal inspection. Absent: tenderness, meningismus, lymphadenopathy Respiratory exam: Present: normal lung sounds bilaterally. Absent: respiratory distress, wheezes, rales, rhonchi, stridor Cardiovascular Exam: Present: regular rate, normal rhythm, normal heart sounds. Absent: systolic murmur, diastolic murmur, rubs, gallop, clicks GI/Abdominal exam: Present: soft, normal bowel sounds. Absent: distended, tenderness, guarding, rebound, rigid Extremities exam: Present: normal inspection, full ROM, normal capillary refill. Absent: tenderness, pedal edema, joint swelling, calf tenderness Neurological exam: Present: alert, oriented X3, CN II-XII intact Psychiatric exam: Present: normal affect, normal mood Skin exam: Present: warm, dry, intact, normal color. Absent: rash Course Vital Signs 10/28/20 10:35 Temperature 97.9 F Pulse Rate 64 Respiratory 20 Rate Blood Pressure 182/75 O2 Sat by Pulse 98 Oximetry Medical Decision Making - Medical Decision Making 70-year-old male complaining of shortness of breath and not progressing fast enough covid infection. Patient recently discharged from facility on 10/22/2020 Chest X-ray ordered Accu-Chek: [address] Abdullahi, decided to give patient a Decadron shot and discharged home. - Radiology Data Radiology results: report reviewed, image reviewed Correlate for pneumonia. No significant difference upon reviewing chest x-ray from today compared to chest x-ray done on 10/18/2020. Disposition Clinical Impression: Shortness of breath, COVID-19 Disposition: HOME SELF-CARE Condition: Stable Instructions (If sedation given, give patient instructions): Shortness of Breath (ED) Is patient prescribed a controlled substance at d/c from ED?: No Referrals: Mohit Pereira MD [Primary Care Provider] - 1-2 days Time of Disposition: 12:17
--- NOTE | 2020-10-28 11:24 | XR ---
EXAMINATION TYPE: XR chest 2V DATE OF EXAM: 10/28/2020 COMPARISON: Chest x-ray 10/18/2020 HISTORY: Difficulty breathing TECHNIQUE: Frontal and lateral views of the chest are obtained. FINDINGS: Bilateral airspace disease is noted. Patient is post median sternotomy. Cardiac mediastina l silhouette within normal limits. Aorta is dense. No pleural effusion or pneumothorax evident. IMPRESSION: Correlate for pneumonia.
[2020-10-28] MEDS ORDERED: DEXAMETHASONE SOD PHOSPHATE 10 MG/ML 1 ML VIAL IM STA (12:15)
[2020-10-28 12:25] VITALS: BP 153/72; PULSE 66; TEMP 97.5
== END 2020-10-28 12:41 | disposition home or self-care (01) ==
LOC: EC 10:32
DX: U07.1 COVID-19 (principal); H57.9 Unspecified disorder of eye and adnexa; N18.30 Chronic kidney disease, stage 3 unspecified; E78.5 Hyperlipidemia, unspecified; I12.9 Hypertensive chronic kidney disease with stage 1 through stage 4 chronic kidney disease, or unspecified chronic kidney disease; M19.90 Unspecified osteoarthritis, unspecified site; I25.2 Old myocardial infarction; Z79.82 Long term (current) use of aspirin; Z79.899 Other long term (current) drug therapy; Z95.5 Presence of coronary angioplasty implant and graft; Z90.49 Acquired absence of other specified parts of digestive tract; Z85.820 Personal history of malignant melanoma of skin; Z90.89 Acquired absence of other organs; Z98.42 Cataract extraction status, left eye
CPT/HCPCS: 36415; 71046; 99285; 96372; J1100; 96374

== ENCOUNTER 2020-11-08 11:08 | Inpatient (IN) | payer OTHER, MEDICARE ==
[2020-11-08] MEDS ORDERED: ALBUTEROL HFA INHALER INHALATION STA (11:21)
--- NOTE | 2020-11-08 11:27 | ED ---
General Adult HPI - General Chief complaint: Shortness of Breath Stated complaint: SOB Time Seen by Provider: 11/08/20 11:15 Source: patient, RN notes reviewed Mode of arrival: ambulatory Limitations: no limitations - History of Present Illness Initial comments: Patient is a pleasant 70-year-old male presenting to the emergency department with difficulty breathing. onset of symptoms was around a week ago. No cough. Dyspnea does worsen with exertion. Patient does have some orthopnea. No chest pain.No history of similar symptoms previously. Patient does have some chronic leg swelling that is slightly worse than normal. No calf pain. Patient is on anticoagulation. Patient was diagnosed with coronavirus a month ago. - Related Data Home Medications Medication Instructions Recorded Confirmed Atorvastatin [Lipitor] 80 mg PO DAILY 04/30/17 10/28/20 Carvedilol [Coreg] 25 mg PO DAILY 04/30/17 10/28/20 Acetaminophen Tab [Tylenol] 500 mg PO Q6H PRN 10/18/20 10/28/20 Aspirin EC [Ecotrin Low Dose] 81 mg PO DAILY 10/18/20 10/28/20 hydrALAZINE HCL [Apresoline] 100 mg PO TID 10/28/20 10/28/20 Previous Rx's Medication Instructions Recorded Apixaban [Eliquis] 5 mg PO BID #74 tab 08/16/18 Ascorbic Acid [Vitamin C] 1,000 mg PO DAILY tab 10/22/20 Azithromycin [Zithromax] 500 mg PO DAILY 5 Days #5 tab 10/22/20 Cholecalciferol [Vitamin D3 (25 50 mcg PO DAILY tablet 10/22/20 Mcg = 1000 Iu)] Insulin Detemir (Levemir) [Levemir] 65 unit SQ DAILY@0700 syr 10/22/20 Sodium Bicarbonate Tab 1,300 mg PO BID tab 10/22/20 Zinc Sulfate [Orazinc] 220 mg PO DAILY cap 10/22/20 amLODIPine [Norvasc] 5 mg PO DAILY 30 Days #30 tab 10/22/20 Allergies Allergy/AdvReac Type Severity Reaction Status Date / Time No Known Allergies Allergy Verified 11/08/20 13:12 Review of Systems ROS Statement: Those systems with pertinent positive or pertinent negative responses have been documented in the HPI. ROS Other: All systems not noted in ROS Statement are negative. Constitutional: Denies: fever, chills Eyes: Denies: eye pain ENT: Denies: ear pain Respiratory: Reports: dyspnea. Denies: cough Cardiovascular: Reports: as per HPI, dyspnea on exertion. Denies: chest pain, palpitations Endocrine: Reports: fatigue Gastrointestinal: Denies: abdominal pain Genitourinary: Denies: dysuria Musculoskeletal: Denies: back pain Skin: Denies: rash Neurological: Denies: weakness Past Medical History Past Medical History: Coronary Artery Disease (CAD), Cancer, Diabetes Mellitus, Eye Disorder, GERD/Reflux, GI Bleed, Hyperlipidemia, Hypertension, Myocardial Infarction ([place]), Osteoarthritis (OA), Renal Disease Additional Past Medical History / Comment(s): glaucoma in the left eye, stage III chronic kidney disease, Melanoma on back R ear and abd removed, covid Last Myocardial Infarction Date:: 2015 History of Any Multi-Drug Resistant Organisms: None Reported Past Surgical History: Adenoidectomy, Appendectomy, Heart Catheterization, Heart Catheterization With Stent, Orthopedic Surgery, Tonsillectomy Additional Past Surgical History / Comment(s): tumor from L shoulder, bilateral carpel tunnel, colonoscopy, R knee arthroscopy;CA removed from R ear back & abdomen; cataract L eye, liver biopsy on 08/14/18 Past Anesthesia/Blood Transfusion Reactions: No Reported Reaction Date of Last Stent Placement:: 12/07/15 Past Psychological History: No Psychological Hx Reported Smoking Status: Never smoker Past Alcohol Use History: Occasional Past Drug Use History: None Reported - Past Family History Father Family Medical History: No Reported History Additional Family Medical History / Comment(s): Father was a heavy smoker. He was at age 70. Mother Family Medical History: No Reported History Additional Family Medical History / Comment(s): Mother is alive and is 92 yrs old. General Exam Limitations: no limitations General appearance: alert, in no apparent distress Head exam: Present: atraumatic Eye exam: Present: normal appearance Neck exam: Present: normal inspection Respiratory exam: Present: wheezes (Mild expiratory), decreased breath sounds Cardiovascular Exam: Present: regular rate, normal rhythm Expanded Peripheral pulses: 2+: Radial (R), Radial (L), Dorsalis Pedis (R), Dorsalis Pedis (L) GI/Abdominal exam: Present: soft. Absent: tenderness Extremities exam: Present: pedal edema. Absent: calf tenderness Neurological exam: Present: alert Psychiatric exam: Present: normal affect, normal mood Skin exam: Present: normal color Course Vital Signs 11/08/20 11:10 Temperature 98.1 F Pulse Rate 73 Respiratory 18 Rate Blood Pressure 189/80 O2 Sat by Pulse 95 Oximetry EKG Findings - EKG Comments: EKG Findings:: Normal sinus rhythm 66. CA 140. QRS 78. QT 4:30. QTC 450. Normal axis. Normal QRS. No acute ST change. Medical Decision Making - Medical Decision Making Patient reevaluated and updated. Patient clinically presents like CHF. Crohn of virus has been added. Patient updated on results and plan. Case discussed with Dr. Byrd, who will admit covering for Dr. Wyatt Pereira. - Lab Data Result diagrams: 11/08/20 11:48 11/08/20 11:48 Lab Results 11/08/20 11/08/20 11/08/20 Range/Units 11:48 11:48 11:48 WBC 5.0 (3.8-10.6) k/uL RBC 3.61 L (4.30-5.90) m/uL Hgb 9.5 L (13.0-17.5) gm/dL Hct 28.7 L (39.0-53.0) % MCV 79.4 L (80.0-100.0) fL MCH 26.4 (25.0-35.0) pg MCHC 33.2 (31.0-37.0) g/dL RDW 17.2 H (11.5-15.5) % Plt Count 138 L D (150-450) k/uL MPV 6.6 Neutrophils % 68 % Lymphocytes % 16 % Monocytes % 6 % Eosinophils % 5 % Basophils % 1 % Neutrophils # 3.4 (1.3-7.7) k/uL Lymphocytes # 0.8 L (1.0-4.8) k/uL Monocytes # 0.3 (0-1.0) k/uL Eosinophils # 0.3 (0-0.7) k/uL Basophils # 0.0 (0-0.2) k/uL Manual Slide Review Performed Poikilocytosis Slight Anisocytosis Slight Microcytosis Slight PT 10.9 (9.0-12.0) sec INR 1.0 (<1.2) APTT 24.9 (22.0-30.0) sec Sodium 138 (137-145) mmol/L Potassium 4.8 (3.5-5.1) mmol/L Chloride 112 H (98-107) mmol/L Carbon Dioxide 22 (22-30) mmol/L Anion Gap 4 mmol/L BUN 38 H (9-20) mg/dL Creatinine 2.14 H (0.66-1.25) mg/dL Est GFR (CKD-EPI)AfAm 35 (>60 ml/min/1.73 sqM) Est GFR (CKD-EPI)NonAf 31 (>60 ml/min/1.73 sqM) Glucose 242 H (74-99) mg/dL Plasma Lactic Acid Young (0.7-2.0) mmol/L Calcium 8.3 L (8.4-10.2) mg/dL Magnesium 2.4 H (1.6-2.3) mg/dL Total Bilirubin 0.7 (0.2-1.3) mg/dL AST 24 (17-59) U/L ALT 42 (4-49) U/L Alkaline Phosphatase 116 (38-126) U/L Lactate Dehydrogenase 508 (313-618) U/L Troponin I (0.000-0.034) ng/mL C-Reactive Protein 6.4 (<10.0) mg/L NT-Pro-B Natriuret Pep pg/mL Total Protein 5.5 L (6.3-8.2) g/dL Albumin 2.9 L (3.5-5.0) g/dL 11/08/20 11/08/20 11/08/20 Range/Units 11:48 11:48 11:48 WBC (3.8-10.6) k/uL RBC (4.30-5.90) m/uL Hgb (13.0-17.5) gm/dL Hct (39.0-53.0) % MCV (80.0-100.0) fL MCH (25.0-35.0) pg MCHC (31.0-37.0) g/dL RDW (11.5-15.5) % Plt Count (150-450) k/uL MPV Neutrophils % % Lymphocytes % % Monocytes % % Eosinophils % % Basophils % % Neutrophils # (1.3-7.7) k/uL Lymphocytes # (1.0-4.8) k/uL Monocytes # (0-1.0) k/uL Eosinophils # (0-0.7) k/uL Basophils # (0-0.2) k/uL Manual Slide Review Poikilocytosis Anisocytosis Microcytosis PT (9.0-12.0) sec INR (<1.2) APTT (22.0-30.0) sec Sodium (137-145) mmol/L Potassium (3.5-5.1) mmol/L Chloride (98-107) mmol/L Carbon Dioxide (22-30) mmol/L Anion Gap mmol/L BUN (9-20) mg/dL Creatinine (0.66-1.25) mg/dL Est GFR (CKD-EPI)AfAm (>60 ml/min/1.73 sqM) Est GFR (CKD-EPI)NonAf (>60 ml/min/1.73 sqM) Glucose (74-99) mg/dL Plasma Lactic Acid Young 0.8 (0.7-2.0) mmol/L Calcium (8.4-10.2) mg/dL Magnesium (1.6-2.3) mg/dL Total Bilirubin (0.2-1.3) mg/dL AST (17-59) U/L ALT (4-49) U/L Alkaline Phosphatase (38-126) U/L Lactate Dehydrogenase (313-618) U/L Troponin I 0.015 (0.000-0.034) ng/mL C-Reactive Protein (<10.0) mg/L NT-Pro-B Natriuret Pep 3220 pg/mL Total Protein (6.3-8.2) g/dL Albumin (3.5-5.0) g/dL - Radiology Data Radiology results: image reviewed (Chest x-ray shows cardiomegaly. CHF versus pneumonia.) Disposition Clinical Impression: Congestive heart failure Disposition: ADMITTED IP TO THIS HOSP Is patient prescribed a controlled substance at d/c from ED?: No Referrals: Tremaine Pereira MD [Primary Care Provider] - 1-2 days Decision Time: 13:14
[2020-11-08 12:17] LABS: Anisocytosis Slight; Basophils % (A) 1 %; Eosinophils # (A) 0.3 k/uL (0-0.7); Eosinophils % (A) 5 %; HCT 28.7 % (39.0-53.0); HGB 9.5 gm/dL (13.0-17.5); Lymphocytes # (A) 0.8 k/uL (1.0-4.8); Lymphocytes % (A) 16 %; MCH 26.4 pg (25.0-35.0); MCHC 33.2 g/dL (31.0-37.0); MCV 79.4 fL (80.0-100.0); Mean Platelet Volume 6.6; Microcytosis Slight; Monocytes # (A) 0.3 k/uL (0-1.0); Monocytes % (A) 6 %; Neutrophils # (A) 3.4 k/uL (1.3-7.7); Neutrophils % (A) 68 %; Poikilocytosis Slight; RBC 3.61 m/uL (4.30-5.90); RDW 17.2 % (11.5-15.5)
[2020-11-08 12:25] LABS: Partial Thromboplastin Time 24.9 sec (22.0-30.0); Prothrombin Time 10.9 sec (9.0-12.0)
--- NOTE | 2020-11-08 12:29 | XR ---
EXAMINATION TYPE: XR chest 1V portable DATE OF EXAM: 11/08/2020 COMPARISON: Chest x-ray 10/28/2020 HISTORY: Suspected Covid 19 pneumonia, shortness of breath TECHNIQUE: Single frontal view of the chest is obtained. FINDINGS: Patchy bilateral airspace disease is present. Patient is post median sternotomy and the he art is enlarged. No evident pneumothorax or pleural effusion. IMPRESSION: Correlate for pneumonia, congestive heart failure.
[2020-11-08 12:30] LABS: Albumin 2.9 g/dL (3.5-5.0); C Reactive Protein 6.4 mg/L (<10.0); Calcium 8.3 mg/dL (8.4-10.2); Magnesium 2.4 mg/dL (1.6-2.3); Potassium 4.8 mmol/L (3.5-5.1); Total Bilirubin 0.7 mg/dL (0.2-1.3); Total Protein 5.5 g/dL (6.3-8.2)
[2020-11-08 12:46] LABS: Platelet Count 138 k/uL (150-450)
[2020-11-08] MEDS ORDERED: ASPIRIN 325 MG TAB PO STA (13:14)
[2020-11-08] MEDS: FUROSEMIDE 10 MG/ML 4 ML VIAL IV SCH ×2 (13:25→20:20)
[2020-11-08] MEDS ORDERED: ACETAMINOPHEN TAB 500 MG TAB PO PRN (16:31)
[2020-11-08] MEDS: INSULIN ASPART (NovoLOG) 100 UNIT/ML VIAL SQ SCH ×2 (17:13→20:20)
--- NOTE | 2020-11-08 19:49 | P.HPIM ---
History of Present Illness H&P Date: 11/08/20 Chief Complaint: Shortness of breath This is a 70-year-old gentleman patient of Dr. Wyatt Pereira. He has underlying history of diabetes mellitus type 2, CAD with prior CABG, CK D stage III, hypertension, recent covid infection, who had an acute kidney injury secondary to covid infection September 2020, for which she was seen by nephrology at that time. Presents to the emergency room secondary to difficulty breathing, one week prior to admission. Dyspnea has worsened up, there is worsening of the chronic lower leg edema,, he comes in without any diuretic a 6, secondary to acute kidney injury at that time. He has a current creatinine of 2.14, sodium 138, INR 1.0, albumin 2.9, hemoglobin of 9.5 WBC count of 5.0 blood pressure elevated at 170 systolic, 96% on room air. Next Emergency room, chest x-ray showed pneumonia, and CHF. Troponin is 0.015, [employer] proBNP 30-20, lactic acid of 0.8 patient admitted for CHF exacerbation. 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 Echocardiogram requested Review of Systems Constitutional: Reports as per HPI, Reports chills, Denies anorexia, Denies chronic headaches, Denies chronic pain, Denies daytime sleepiness, Denies fatigue, Denies fever, Denies lethargy, Denies malaise, Denies night sweats, Denies poor appetite, Denies sweats, Denies weakness, Denies weight gain, Denies weight loss Ears, nose, mouth and throat: Reports as per HPI Cardiovascular: Reports as per HPI, Denies chest pain, Denies claudication, Denies decreased exercise tolerance, Denies dyspnea on exertion, Denies edema, Denies high blood pressure, Denies irregular heart beat, Denies leg edema, Denies lightheadedness, Denies orthopnea, Denies palpitations, Denies paroxysmal nocturnal dyspnea, Denies phlebitis, Denies rapid heart beat, Denies shortness of breath, Denies syncope Respiratory: Reports as per HPI Gastrointestinal: Reports as per HPI Genitourinary: Reports as per HPI Musculoskeletal: Reports as per HPI Integumentary: Reports as per HPI, Denies acne, Denies boils, Denies brittle nails, Denies change in hair/nails, Denies color changes, Denies darkening of skin, Denies depigmentation, Denies dryness, Denies foot/leg ulcers, Denies growths, Denies hirsutism, Denies lesions, Denies onychomycosis, Denies pruritus, Denies rash, Denies sores, Denies striae, Denies unusual bruising, Denies wounds Neurological: Reports as per HPI, Reports weakness, Denies aphasia, Denies ataxia, Denies balance difficulties, Denies burning pain, Denies change in mentation, Denies change in smell/taste, Denies change in speech, Denies confusion, Denies convulsions, Denies double vision, Denies gait dysfunction, Denies head injury, Denies headaches, Denies hearing difficulties, Denies lack of coordination, Denies loss of vision, Denies memory loss, Denies migraines, Denies motor disturbance, Denies numbness, Denies paralysis, Denies paresthesias, Denies seizures, Denies sensory deficit, Denies spasticity, Denies syncope, Denies tic, Denies tingling, Denies transient paralysis, Denies tremors, Denies vertigo, Denies visual changes Psychiatric: Reports as per HPI Endocrine: Reports as per HPI, Denies cold intolerance, Denies deepening of the voice, Denies excessive sweating, Denies excessive thirst, Denies fatigue, Baltazar es flushing, Denies heat intolerance, Denies high blood sugars, Denies increase in ring/shoe/hat size, Denies low blood sugars, Denies nocturia, Denies palpitations, Denies polydipsia, Denies polyphagia, Denies polyuria, Denies proptosis, Denies recent glucocorticoid use, Denies thyroid mass, Denies weight change Hematologic/Lymphatic: Reports as per HPI Allergic/Immunologic: Reports as per HPI Past Medical History Past Medical History: Coronary Artery Disease (CAD), Cancer, Diabetes Mellitus, Eye Disorder, GERD/Reflux, GI Bleed, Hyperlipidemia, Hypertension, Myocardial Infarction ([place]), Osteoarthritis (OA), Renal Disease Additional Past Medical History / Comment(s): glaucoma in the left eye, stage III chronic kidney disease, Melanoma on back R ear and abd removed, covid Last Myocardial Infarction Date:: 2015 History of Any Multi-Drug Resistant Organisms: None Reported Past Surgical History: Adenoidectomy, Appendectomy, Heart Catheterization, Heart Catheterization With Stent, Orthopedic Surgery, Tonsillectomy Additional Past Surgical History / Comment(s): tumor from L shoulder, bilateral carpel tunnel, colonoscopy, R knee arthroscopy;CA removed from R ear back & abdomen; cataract L eye, liver biopsy on 08/14/18 Past Anesthesia/Blood Transfusion Reactions: No Reported Reaction Date of Last Stent Placement:: 12/07/15 Past Psychological History: No Psychological Hx Reported Additional Psychological History / Comment(s): Pt resides with his spouse. He works at [employer]. He is independent. Smoking Status: Never smoker Past Alcohol Use History: Occasional Past Drug Use History: None Reported - Past Family History Father Family Medical History: No Reported History Additional Family Medical History / Comment(s): Father was a heavy smoker. He was at age 70. Mother Family Medical History: No Reported History Additional Family Medical History / Comment(s): Mother is alive and is 92 yrs old. Medications and Allergies Home Medications Medication Instructions Recorded Confirmed Type Atorvastatin [Lipitor] 80 mg PO DAILY 04/30/17 11/08/20 History Carvedilol [Coreg] 25 mg PO DAILY 04/30/17 11/08/20 History Apixaban [Eliquis] 5 mg PO BID #74 tab 08/16/18 11/08/20 Rx Acetaminophen Tab [Tylenol] 500 mg PO Q6H PRN 10/18/20 11/08/20 History Aspirin EC [Ecotrin Low Dose] 81 mg PO DAILY 10/18/20 11/08/20 History Ascorbic Acid [Vitamin C] 1,000 mg PO DAILY tab 10/22/20 11/08/20 Rx Cholecalciferol [Vitamin D3 (25 50 mcg PO DAILY tablet 10/22/20 11/08/20 Rx Mcg = 1000 Iu)] Insulin Detemir (Levemir) [Levemir] 65 unit SQ DAILY@0700 syr 10/22/20 11/08/20 Rx Sodium Bicarbonate Tab 1,300 mg PO BID tab 10/22/20 11/08/20 Rx Zinc Sulfate [Orazinc] 220 mg PO DAILY cap 10/22/20 11/08/20 Rx amLODIPine [Norvasc] 5 mg PO DAILY 30 Days #30 tab 10/22/20 11/08/20 Rx hydrALAZINE HCL [Apresoline] 100 mg PO TID 10/28/20 11/08/20 History Allergies Allergy/AdvReac Type Severity Reaction Status Date / Time No Known Allergies Allergy Verified 11/08/20 13:12 Physical Exam Vitals: Vital Signs Temp Pulse Pulse Resp BP BP Pulse Ox 11/08/20 15:54 70 16 11/08/20 15:08 97.5 F L 70 16 171/74 94 L 11/08/20 14:30 98.2 F 61 20 171/75 96 11/08/20 13:14 62 20 164/77 95 11/08/20 11:10 98.1 F 73 18 189/80 95 Intake and Output 11/08/20 11/08/20 11/08/20 06:59 14:59 22:59 Other: Voiding Method Toilet Weight 96.162 kg 96.162 kg - Constitutional General appearance: cooperative, mild distress, no acute distress - EENT Eyes: anicteric sclerae, EOMI, PERRLA, dentition normal, normal appearance ENT: NA/AT, normal oropharynx - Neck Neck: normal ROM Carotids: bilateral: upstroke normal, negative: upstroke delayed, upstroke dim inished, upstroke bounding, bruit absent - Respiratory Respiratory: bilateral: CTA, negative: diminished, dullness, rales - Cardiovascular Rhythm: regular Heart sounds: normal: S1, S2 Abnormal Heart Sounds: no systolic murmur, no diastolic murmur, no rub, no S3 Gallop, no S4 Gallop, no click, no other - Gastrointestinal General gastrointestinal: normal bowel sounds, soft - Integumentary Integumentary: normal turgor - Neurologic Neurologic: CNII-XII intact - Musculoskeletal Musculoskeletal: strength equal bilaterally - Psychiatric Psychiatric: A&O x's 3, appropriate affect Results CBC & Chem 7: 11/08/20 11:48 11/08/20 11:48 Labs: Abnormal Lab Results - Last 24 Hours (Table) 11/08/20 11/08/20 11/08/20 Range/Units 11:48 11:48 13:14 RBC 3.61 L (4.30-5.90) m/uL Hgb 9.5 L (13.0-17.5) gm/dL Hct 28.7 L (39.0-53.0) % MCV 79.4 L (80.0-100.0) fL RDW 17.2 H (11.5-15.5) % Plt Count 138 L D (150-450) k/uL Lymphocytes # 0.8 L (1.0-4.8) k/uL Chloride 112 H (98-107) mmol/L BUN 38 H (9-20) mg/dL Creatinine 2.14 H (0.66-1.25) mg/dL Glucose 242 H (74-99) mg/dL Calcium 8.3 L (8.4-10.2) mg/dL Magnesium 2.4 H (1.6-2.3) mg/dL Total Protein 5.5 L (6.3-8.2) g/dL Albumin 2.9 L (3.5-5.0) g/dL Coronavirus (PCR) Detected A (Not Detectd) Laboratory Results WBC 5.0 k/uL (3.8-10.6) 11/08/20 11:48 RBC 3.61 m/uL (4.30-5.90) L 11/08/20 11:48 Hgb 9.5 gm/dL (13.0-17.5) L 11/08/20 11:48 Hct 28.7 % (39.0-53.0) L 11/08/20 11:48 MCV 79.4 fL (80.0-100.0) L 11/08/20 11:48 MCH 26.4 pg (25.0-35.0) 11/08/20 11:48 MCHC 33.2 g/dL (31.0-37.0) 11/08/20 11:48 RDW 17.2 % (11.5-15.5) H 11/08/20 11:48 Plt Count 138 k/uL (150-450) L D 11/08/20 11:48 MPV 6.6 11/08/20 11:48 Neutrophils % 68 % 11/08/20 11:48 Lymphocytes % 16 % 11/08/20 11:48 Monocytes % 6 % 11/08/20 11:48 Eosinophils % 5 % 11/08/20 11:48 Basophils % 1 % 11/08/20 11:48 Neutrophils # 3.4 k/uL (1.3-7.7) 11/08/20 11:48 Lymphocytes # 0.8 k/uL (1.0-4.8) L 11/08/20 11:48 Monocytes # 0.3 k/uL (0-1.0) 11/08/20 11:48 Eosinophils # 0.3 k/uL (0-0.7) 11/08/20 11:48 Basophils # 0.0 k/uL (0-0.2) 11/08/20 11:48 Manual Slide Review Performed 11/08/20 11:48 Poikilocytosis Slight 11/08/20 11:48 Anisocytosis Slight 11/08/20 11:48 Microcytosis Slight 11/08/20 11:48 PT 10.9 sec (9.0-12.0) 11/08/20 11:48 INR 1.0 (<1.2) 11/08/20 11:48 APTT 24.9 sec (22.0-30.0) 11/08/20 11:48 Sodium 138 mmol/L (137-145) 11/08/20 11:48 Potassium 4.8 mmol/L (3.5-5.1) 11/08/20 11:48 Chloride 112 mmol/L (98-107) H 11/08/20 11:48 Carbon Dioxide 22 mmol/L (22-30) 11/08/20 11:48 Anion Gap 4 mmol/L 11/08/20 11:48 BUN 38 mg/dL (9-20) H 11/08/20 11:48 Creatinine 2.14 mg/dL (0.66-1.25) H 11/08/20 11:48 Est GFR (CKD-EPI)AfAm 35 (>60 ml/min/1.73 sqM) 11/08/20 11:48 Est GFR (CKD-EPI)NonAf 31 (>60 ml/min/1.73 sqM) 11/08/20 11:48 Glucose 242 mg/dL (74-99) H 11/08/20 11:48 Plasma Lactic Acid Young 0.8 mmol/L (0.7-2.0) 11/08/20 11:48 Calcium 8.3 mg/dL (8.4-10.2) L 11/08/20 11:48 Magnesium 2.4 mg/dL (1.6-2.3) H 11/08/20 11:48 Total Bilirubin 0.7 mg/dL (0.2-1.3) 11/08/20 11:48 AST 24 U/L (17-59) 11/08/20 11:48 ALT 42 U/L (4-49) 11/08/20 11:48 Alkaline Phosphatase 116 U/L (38-126) 11/08/20 11:48 Lactate Dehydrogenase 508 U/L (313-618) 11/08/20 11:48 Troponin I 0.015 ng/mL (0.000-0.034) 11/08/20 11:48 C-Reactive Protein 6.4 mg/L (<10.0) 11/08/20 11:48 NT-Pro-B Natriuret Pep 3220 pg/mL 11/08/20 11:48 Total Protein 5.5 g/dL (6.3-8.2) L 11/08/20 11:48 Albumin 2.9 g/dL (3.5-5.0) L 11/08/20 11:48 Coronavirus (PCR) Detected (Not Detectd) A 11/08/20 13:14 Thrombosis Risk Factor Assmnt - DVT/VTE Prophylaxis DVT/VTE Prophylaxis: Pharmacologic Prophylaxis ordered - Choose All That Apply Any of the Below Risk Factors Present?: Yes Each Factor Represents 1 point: Obesity (BMI >25), Swollen legs (current) Other Risk Factors: Yes Each Risk Factor Represents 2 Points: Age 61-74 years Each Risk Factor Represents 3 Points: History of DVT/PE Other congenital or acquired thrombophilia - If yes, enter type in comment: No Thrombosis Risk Factor Assessment Total Risk Factor Score: 7 Thrombosis Risk Factor Assessment Level: High Risk Assessment and Plan Plan: 1Acute diastolic CHF, unknown ejection fraction, with exacerbation secondary to recent withdrawal of diuretics secondary to acute kidney injury from ATN. Patient is currently on IV Lasix 40 mg every 8 hours, avoid hypotension, andneprhotoxic toxic agents, echocardiogram, consult with cardiology 2. CAD with prior CABG in the past, status post occlusive disease in the LAD, and diagonal branch patient is on a low course, followed by cardiology next 3. Diabetes mellitus type 2, 4. CK D stage 3a poss transitioning to IV, with recent ATN related to covid atn 5. Covid infection 19 on 10/18 2020 with recovery of her Covid PCR virus is still positive. Obtain Covid markers CRP, ferritin, LDH, patient is on eliquis 6. Diabetes mellitus type 2 on Levemir 7. Uncontrolled hypertension, on amlodipine 10 mg 3 times a day, hydralazine, and IV Lasix 40 mg every 8 hours 8 History of melanoma right ear, status post excision 9 Hyperlipidemia 10 History of GI bleed, none currently, stable on anticoagulation chronic anticoagulation, eliquis
[2020-11-08] MEDS: FAMOTIDINE 20 MG TAB PO SCH (20:20)
[2020-11-08] MEDS: APIXABAN 5 MG TAB PO SCH (20:20)
[2020-11-08] MEDS: NITROGLYCERIN OINT 1 INCH/GM PACKET TOPICAL SCH ×2 (20:20→23:42)
[2020-11-08] MEDS: SODIUM BICARBONATE TAB 650 MG TAB PO SCH (20:21)
[2020-11-08] MEDS: hydrALAZINE HCL 50 MG TAB PO SCH (20:22)
[2020-11-08 20:28] LABS: Glucose,Whole Blood 352 mg/dL (75-99)
[2020-11-08 22:06] LABS: Ferritin 124.6 ng/mL (22.0-322.0)
[2020-11-09] MEDS: FUROSEMIDE 10 MG/ML 4 ML VIAL IV SCH ×3 (06:11→21:42)
[2020-11-09 06:46] LABS: Glucose,Whole Blood 214 mg/dL (75-99)
[2020-11-09] MEDS ORDERED: INSULIN DETEMIR (LEVEMIR) 100 UNIT/ML SYR SQ SCH (07:00)
[2020-11-09] MEDS: APIXABAN 5 MG TAB PO SCH ×2 (08:08→21:42)
[2020-11-09] MEDS: hydrALAZINE HCL 50 MG TAB PO SCH ×3 (08:08→21:42)
[2020-11-09] MEDS: carvediloL 12.5 MG TAB PO SCH (08:08)
[2020-11-09] MEDS: SODIUM BICARBONATE TAB 650 MG TAB PO SCH ×2 (08:08→21:42)
[2020-11-09] MEDS: CHOLECALCIFEROL 25 MCG (1000 IU) TABLET PO SCH (08:08)
[2020-11-09] MEDS: INSULIN ASPART (NovoLOG) 100 UNIT/ML VIAL SQ SCH ×4 (08:08→21:42)
[2020-11-09] MEDS: ZINC SULFATE 220 MG CAP PO SCH (08:08)
[2020-11-09] MEDS: ASCORBIC ACID 500 MG TAB PO SCH (08:09)
[2020-11-09] MEDS: POTASSIUM CHLORIDE ER 20 MEQ TAB.ER PO SCH (08:09)
[2020-11-09] MEDS: ATORVASTATIN 80 MG TAB PO SCH (08:09)
[2020-11-09] MEDS: NITROGLYCERIN OINT 1 INCH/GM PACKET TOPICAL SCH (08:12)
[2020-11-09 08:59] LABS: Basophils # (A) 0.03 X 10*3/uL (0.00-0.10); Basophils % (A) 0.7 %; Eosinophils # (A) 0.33 X 10*3/uL (0.04-0.35); Eosinophils % (A) 7.2 %; HCT 25.6 % (39.6-50.0); HGB 8.4 g/dL (13.0-17.0); Lymphocytes # (A) 0.89 X 10*3/uL (0.90-5.00); Lymphocytes % (A) 19.3 %; MCH 26.3 pg (27.0-32.0); MCHC 32.8 g/dL (32.0-37.0); MCV 80.3 fL (80.0-97.0); Mean Platelet Volume 9.8 fL (9.5-12.2); Monocytes # (A) 0.57 X 10*3/uL (0.20-1.00); Monocytes % (A) 12.4 %; Neutrophils # (A) 2.77 X 10*3/uL (1.80-7.70); Platelet Count 129 X 10*3/uL (140-440); RBC 3.19 X 10*6/uL (4.40-5.60); RDW 16.3 % (11.5-14.5); WBC 4.61 X 10*3/uL (4.50-10.00)
[2020-11-09] MEDS ORDERED: POTASSIUM CHLORIDE ER 20 MEQ TAB.ER PO SCH (09:00)
[2020-11-09] MEDS ORDERED: ASPIRIN 325 MG TAB PO SCH (09:00)
[2020-11-09] MEDS: ASPIRIN 81 MG PO SCH (09:03)
--- NOTE | 2020-11-09 09:43 | P.CRDCN ---
History of Present Illness History of present illness: HISTORY OF PRESENTING ILLNESS This is a pleasant 70-year-old male past medical history significant for very artery disease status post three-vessel bypass grafting in 2016 with BYRNES to LAD, SVG to D1 and SVG to OM, hypertension, diabetes mellitus, dyslipidemia, melanoma, chronic kidney disease and DVT maintained on Eliquis. He previously followed in the office with Dr. Andrade. We have been asked to see in consultation for heart failure. Center to the hospital with symptoms of exertional shortness of breath has been going on for the previous 2 weeks. The symptoms have remained stable and are not getting any worse however they are not getting any better. He was previously diagnosed with Covid 19 in the end of September. He denies chest pain, orthopnea, PND, palpitations or dizziness. DIAGNOSTICS EKG reveals sinus mechanism heart rate of [address] or T wave abnormalities noted. Telemetry tracings indicate sinus mechanism with no acute arrhythmia. Chest xray patchy bilateral airspace disease.. Laboratory reviewed, WBC 4, hemoglobin 8.4, platelets 129, sodium 138, potassium 4.8, creatinine 2.14, magnesium 2.4, cardiac enzymes negative 1, and keep proBN P 3220 and Covid positive. Current cardiac medications include hydralazine 100 mg 3 times a day, amlodipine 5 mg daily, Coreg 25 mg daily, atorvastatin 80 mg daily, aspirin 81 mg daily and Eliquis 5 mg twice a day. Most recent echocardiogram obtained in the office in 2019 revealed preserved LV systolic function with ejection fraction 60%. REVIEW OF SYSTEMS At the time of my exam: CONSTITUTIONAL: Denies fever or chills. CARDIOVASCULAR: Complains of exertional shortness of breath. Denies chest pain, orthopnea, PND or palpitations. RESPIRATORY: Denies cough. GASTROINTESTINAL: Denies abdominal pain, diarrhea, constipation, nausea or vomiting. MUSCULOSKELETAL: Denies myalgias. NEUROLOGIC: Denies numbness, tingling, headacbe or weakness. ENDOCRINE: Denies fatigue, weight change, polydipsia or polyurina. GENITOURINARY: Denies burning, hematuria or urgency with micturation. HEMATOLOGIC: Denies history of anemia or bleeding. PHYSICAL EXAMINATION Blood pressure 149/77 heart rate 65 afebrile and maintaining oxygen saturation on room air. CONSTITUTIONAL: No apparent distress. HEENT: Head is normocephalic. Pupils are equal, round. Sclerae anicteric. Mucous membranes of the mouth are moist. No JVD. No carotid bruit. CHEST EXAMINATION: Faint bibasilar rales. No chest wall tenderness is noted on palpation or with deep breathing. No wheezes or rhonchi. HEART EXAMINATION: Regular rate and rhythm. S1, S2 heard. No murmurs, gallops or rub. ABDOMEN: Soft, nontender. Positive bowel sounds. EXTREMITIES: 2+ peripheral pulses, right lower extremity edema secondary to lymphedema and no calf tenderness. NEUROLOGIC EXAMINATION: Patient is awake, alert and oriented x3. ASSESSMENT Acute diastolic heart failure Covid 19 Anemia Thrombocytopenia Chronic kidney disease Coronary artery disease status post bypass grafting Hypertension Dyslipidemia Diabetes mellitus History of DVT maintained on Eliquis PLAN Decrease aspirin to 81 mg daily. Continue IV diuresis for an additional 24 hours. Follow renal function and electrolytes in the morning. Document accurate intake and output along with daily weights. Echocardiogram has been obtained and will be reviewed. Further recommendations to follow based upon clinical course. Thank you kindly for this consultation. Nurse Practitioner note has been reviewed, I agree with a documented findings and plan of care. Patient was seen and examined. Past Medical History Past Medical History: Coronary Artery Disease (CAD), Cancer, Diabetes Mellitus, Eye Disorder, GERD/Reflux, GI Bleed, Hyperlipidemia, Hypertension, Myocardial Infarction ([place]), Osteoarthritis (OA), Renal Disease Additional Past Medical History / Comment(s): glaucoma in the left eye, stage III chronic kidney disease, Melanoma on back R ear and abd removed, covid Last Myocardial Infarction Date:: 2015 History of Any Multi-Drug Resistant Organisms: None Reported Past Surgical History: Adenoidectomy, Appendectomy, Heart Catheterization, Heart Catheterization With Stent, Orthopedic Surgery, Tonsillectomy Additional Past Surgical History / Comment(s): tumor from L shoulder, bilateral carpel tunnel, colonoscopy, R knee arthroscopy;CA removed from R ear back & abdomen; cataract L eye, liver biopsy on 08/14/18 Past Anesthesia/Blood Transfusion Reactions: No Reported Reaction Date of Last Stent Placement:: 12/07/15 Past Psychological History: No Psychological Hx Reported Additional Psychological History / Comment(s): Pt resides with his spouse. He works at [employer]. He is independent. Smoking Status: Never smoker Past Alcohol Use History: Occasional Past Drug Use History: None Reported - Past Family History Father Family Medical History: No Reported History Additional Family Medical History / Comment(s): Father was a heavy smoker. He was at age 70. Mother Family Medical History: No Reported History Additional Family Medical History / Comment(s): Mother is alive and is 92 yrs old. Medications and Allergies Home Medications Medication Instructions Recorded Confirmed Type Atorvastatin [Lipitor] 80 mg PO DAILY 04/30/17 11/08/20 History Carvedilol [Coreg] 25 mg PO DAILY 04/30/17 11/08/20 History Apixaban [Eliquis] 5 mg PO BID #74 tab 08/16/18 11/08/20 Rx Acetaminophen Tab [Tylenol] 500 mg PO Q6H PRN 10/18/20 11/08/20 History Aspirin EC [Ecotrin Low Dose] 81 mg PO DAILY 10/18/20 11/08/20 History Ascorbic Acid [Vitamin C] 1,000 mg PO DAILY tab 10/22/20 11/08/20 Rx Cholecalciferol [Vitamin D3 (25 50 mcg PO DAILY tablet 10/22/20 11/08/20 Rx Mcg = 1000 Iu)] Insulin Detemir (Levemir) [Levemir] 65 unit SQ DAILY@0700 syr 10/22/20 11/08/20 Rx Sodium Bicarbonate Tab 1,300 mg PO BID tab 10/22/20 11/08/20 Rx Zinc Sulfate [Orazinc] 220 mg PO DAILY cap 10/22/20 11/08/20 Rx amLODIPine [Norvasc] 5 mg PO DAILY 30 Days #30 tab 10/22/20 11/08/20 Rx hydrALAZINE HCL [Apresoline] 100 mg PO TID 10/28/20 11/08/20 History Allergies Allergy/AdvReac Type Severity Reaction Status Date / Time No Known Allergies Allergy Verified 11/08/20 13:12 Physical Exam Vitals: Vital Signs Temp Pulse Pulse Resp BP BP Pulse Ox 11/09/20 07:00 98.7 F 65 21 149/77 94 L 11/09/20 02:00 98.0 F 70 18 174/83 94 L 11/08/20 20:29 98.3 F 65 18 169/71 96 11/08/20 20:20 65 18 11/08/20 15:54 70 16 11/08/20 15:08 97.5 F L 70 16 171/74 94 L 11/08/20 14:30 98.2 F 61 20 171/75 96 11/08/20 13:14 62 20 164/77 95 11/08/20 11:10 98.1 F 73 18 189/80 95 Intake and Output 11/08/20 11/09/20 11/09/20 22:59 06:59 14:59 Other: Voiding Method Toilet Toilet Toilet # Voids 2 2 # Bowel Movements 1 Weight 96.162 kg Results 11/09/20 05:50 11/08/20 11:48 Cardiac Enzymes 11/08/20 11/08/20 Range/Units 11:48 11:48 AST 24 (17-59) U/L Lactate Dehydrogenase 508 (313-618) U/L Troponin I 0.015 (0.000-0.034) ng/mL Coagulation 11/08/20 Range/Units 11:48 PT 10.9 (9.0-12.0) sec APTT 24.9 (22.0-30.0) sec CBC 11/08/20 11/09/20 Range/Units 11:48 05:50 WBC 5.0 4.61 (3.8-10.6) k/uL RBC 3.61 L 3.19 L (4.30-5.90) m/uL Hgb 9.5 L 8.4 L (13.0-17.5) gm/dL Hct 28.7 L 25.6 L (39.0-53.0) % Plt Count 138 L D 129 L (150-450) k/uL Comprehensive Metabolic Panel 11/08/20 Range/Units 11:48 Sodium 138 (137-145) mmol/L Potassium 4.8 (3.5-5.1) mmol/L Chloride 112 H (98-107) mmol/L Carbon Dioxide 22 (22-30) mmol/L BUN 38 H (9-20) mg/dL Creatinine 2.14 H (0.66-1.25) mg/dL Glucose 242 H (74-99) mg/dL Calcium 8.3 L (8.4-10.2) mg/dL AST 24 (17-59) U/L ALT 42 (4-49) U/L Alkaline Phosphatase 116 (38-126) U/L Total Protein 5.5 L (6.3-8.2) g/dL Albumin 2.9 L (3.5-5.0) g/dL Current Medications Generic Name Dose Route Start Last Admin Trade Name Jaskaranq PRN Reason Stop Dose Admin Acetaminophen 500 mg 11/08/20 16:31 Acetaminophen Tab 500 Mg Tab PO Q6H PRN Pain Apixaban 5 mg 11/08/20 21:00 11/09/20 08:08 Apixaban 5 Mg Tab PO 5 mg BID KARMA Administration Ascorbic Acid 1,000 mg 11/09/20 09:00 11/09/20 08:09 Ascorbic Acid 500 Mg Tab PO 1,000 mg DAILY KARMA Administration Aspirin 81 mg 11/09/20 09:00 11/09/20 09:03 Aspirin 81 Mg PO 81 mg DAILY KARMA Administration Atorvastatin Calcium 80 mg 11/09/20 09:00 11/09/20 08:09 Atorvastatin 80 Mg Tab PO 80 mg DAILY KARMA Administration Carvedilol 25 mg 11/09/20 09:00 11/09/20 08:08 Carvedilol 12.5 Mg Tab PO 25 mg DAILY KARMA Administration Cholecalciferol 50 mcg 11/09/20 09:00 11/09/20 08:08 Cholecalciferol 25 Mcg (1000 Iu) Tablet PO 50 mcg DAILY KARMA Administration Famotidine 20 mg 11/08/20 21:00 11/08/20 20:20 Famotidine 20 Mg Tab PO 20 mg HS KARMA Administration Furosemide 40 mg 11/08/20 14:00 11/09/20 06:11 Furosemide 10 Mg/Ml 4 Ml Vial IV 40 mg Q8H KARMA Administration Hydralazine HCl 100 mg 11/08/20 22:00 11/09/20 08:08 Hydralazine Hcl 50 Mg Tab PO 100 mg TID KARMA Administration Insulin Aspart 0 unit 11/08/20 17:30 11/09/20 08:08 Insulin Aspart (Novolog) 100 Unit/Ml Vial SQ 3 unit ACHS KARMA Administration Protocol Insulin Detemir 65 unit 11/09/20 07:00 11/09/20 07:43 Insulin Detemir (Levemir) 100 Unit/Ml Syr SQ 65 unit DAILY@0700 KARMA Administration Potassium Chloride 20 meq 11/09/20 09:00 11/09/20 08:09 Potassium Chloride Er 20 Meq Tab.Er PO 20 meq DAILY KARMA Administration Sodium Bicarbonate 1,300 mg 11/08/20 21:00 11/09/20 08:08 Sodium Bicarbonate Tab 650 Mg Tab PO 1,300 mg BID KARMA Administration Sodium Chloride 10 ml 11/08/20 21:00 11/09/20 08:15 Sodium Chloride 0.9% Flush 10 Ml Syringe IV 10 ml BID KARMA Administration Zinc Sulfate 220 mg 11/09/20 09:00 11/09/20 08:08 Zinc Sulfate 220 Mg Cap PO 220 mg DAILY KARMA Administration Intake and Output 11/08/20 11/09/20 11/09/20 22:59 06:59 14:59 Other: Voiding Method Toilet Toilet Toilet # Voids 2 2 # Bowel Movements 1 Weight 96.162 kg 11/09/20 05:50 11/08/20 11:48
[2020-11-09 09:54] LABS: Ferritin 118.8 ng/mL (22.0-322.0)
[2020-11-09 10:12] LABS: ALT 35 U/L (10-49); AST 20 U/L (14-35); African American GFR (CKD) 34.2 (60.0-200.0); Albumin/Globulin Ratio 1.94 (1.60-3.17); Alkaline Phosphatase 111 U/L (41-126); BUN/Creat Ratio 17.73 Ratio (12.00-20.00); C Reactive Protein <0.4 mg/dL (0.0-0.8); Carbon Dioxide 23.8 mmol/L (21.6-31.8); Chloride 110 mmol/L (96-109); Globulin 1.6 g/dL (1.6-3.3); Glucose 205 mg/dL (70-110); Non-African American GFR(CKD) 29.5 (60.0-200.0); Potassium 4.7 mmol/L (3.5-5.5); Sodium 141 mmol/L (135-145); Total Bilirubin 0.4 mg/dL (0.2-1.2); Total Protein 4.7 g/dL (6.2-8.2)
--- NOTE | 2020-11-09 10:53 | ECHOF ---
Referral Reason:[facility] pericarditis eval covid MEASUREMENTS -------- HEIGHT: 167.6 cm WEIGHT: 96.2 kg BP: 174/83 RVIDd: 4.6 cm (< 3.3) IVSd: 1.8 cm (0.6 - 1.1) LVIDd: 5.3 cm (3.9 - 5.3) LVPWd: 1.7 cm (0.6 - 1.1) IVSs: 2.3 cm LVIDs: 3.0 cm LVPWs: 2.0 cm LAESV Index (A-L): 67.17 ml/m Ao Diam: 3.6 cm (2.0 - 3.7) AV Cusp: 2.4 cm (1.5 - 2.6) LA Diam: 5.1 cm (2.7 - 3.8) MV EXCURSION: 21.171 mm (> 18.000) MV EF SLOPE: 112 mm/s (70 - 150) EPSS: 0.4 cm MV E Santhosh: 1.19 m/s MV DecT: 255 ms MV A Santhosh: 0.93 m/s MV E/A Ratio: 1.29 RAP: 5.00 mmHg RVSP: 58.45 mmHg FINDINGS -------- Sinus rhythm. This was a technically adequate study. The left ventricular size is normal. There is severe concentric left ventricular hypertrophy. Ove rall left ventricular systolic function is normal with, an EF between 55 - 60 %. The right ventricle is severely enlarged. LA is severely dilated >40 ml/m2 The right atrium was not well visualized. Interatrial and interventricular septum intact. There is mild aortic valve sclerosis. There is no evidence of aortic regurgitation. There is no e vidence of aortic stenosis. The mitral valve leaflets are mildly thickened. Mild mitral regurgitation is present. Moderate tricuspid regurgitation present. There is moderate to severe pulmonary hypertension. The right ventricular systolic pressure, as measured by Doppler, is 58.45mmHg. There is no pulmonic regurgitation present. The aortic root size is normal. IVC Not well visulized. There is no pericardial effusion. CONCLUSIONS -------- 1. There is severe concentric left ventricular hypertrophy. 2. Overall left ventricular systolic function is normal with, an EF between 55 - 60 %. 3. The right ventricle is severely enlarged. 4. LA is severely dilated >40 ml/m2 5. There is mild aortic valve sclerosis. 6. Mild mitral regurgitation is present. 7. Moderate tricuspid regurgitation present. 8. There is moderate to severe pulmonary hypertension. 9. There is no pericardial effusion. YARD DEMURRAGE CLERK: Christina Barroso RDCS
[2020-11-09 11:36] LABS: Glucose,Whole Blood 286 mg/dL (75-99)
--- NOTE | 2020-11-09 12:55 | P.PN ---
Subjective Progress Note Date: 11/09/20 HISTORY OF PRESENT ILLNESS This is a 70-year-old gentleman patient of Dr. Wyatt Pereira. He has underlying history of diabetes mellitus type 2, CAD with prior CABG, CK D stage III, hypertension, recent covid infection, who had an acute kidney injury secondary to covid infection September 2020, for which she was seen by nephrology at that time. Presents to the emergency room secondary to difficulty breathing, one week prior to admission. Dyspnea has worsened up, there is worsening of the chronic lower leg edema,, he comes in without any diuretic a 6, secondary to acute kidney injury at that time. He has a current creatinine of 2.14, sodium 138, INR 1.0, albumin 2.9, hemoglobin of 9.5 WBC count of 5.0 blood pressure elevated at 170 systolic, 96% on room air. Next Emergency room, chest x-ray showed pneumonia, and CHF. Troponin is 0.015, WOOD GLUER proBNP 30-20, lactic acid of 0.8 patient admitted for CHF exacerbation. 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 Echocardiogram requested 11/09: Patient has been afebrile, heart rate in the 60s and 70s, blood pressure 149/77, pulse ox 94% on room air. Blood sugars are running between 214 and 352. Pro calcitonin was 0.09. LDH 108. C-reactive protein 6.4. Repeat blood work today reveals WBC 4.6, hemoglobin 8.4, platelet count 129. BUN 39 and creatinine 2.2. Patient continues to complain of shortness of breath with exertion. He has decreased edema. 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 Jobst stocking in place on the right leg as well. Patient has been seen by cardiology and currently on Lasix 40 mg IV every 8 hours. Plan to to transition to oral tomorrow. Echocardiogram reveals EF of 55-60% with mild mitral regurgitation, moderate tricuspid regurgitation, moderate to severe pulmonary hypertension. REVIEW OF SYSTEMS Constitutional: No fever, no chills, no night sweats. No weight change. No weakness, fatigue or lethargy. No daytime sleepiness. EENT: No headache. No blurred vision or double vision, no loss of vision. No loss of Hearing, no ringing in the ears, no dizziness. No nasal drainage or congestion. No epistaxis. No sore throat. Lungs: Reports shortness of breath, reports dyspnea with exertion, no cough, no sputum production. No wheezing. Cardiovascular: No chest pain, reports lower extremity edema. No palpitations. No paroxysmal nocturnal dyspnea. No orthopnea. No lightheadedness or dizziness. No syncopal episodes. Abdominal: No abdominal pain. No nausea, vomiting. No diarrhea. No constipation. No bloody or tarry stools.. No loss of appetite. Genitourinary: No dysuria, increased frequency, urgency. No urinary retention. Musculoskeletal: No myalgias. No muscle weakness, no gait dysfunction, no frequent falls. No back pain. No neck pain. Integumentary: No wounds, no lesions. No rash or pruritus. No unusual bruising. No change in hair or nails. Neurologic: No aphasia. No facial droop. No change in mentation. No head injury. No headache. No paralysis. No paresthesia. Psychiatric: No depression. No anxiety. No mood swings. Endocrine: No abnormal blood sugars. No weight change. No excessive sweating or thirst. No cold intolerance. PHYSICAL EXAMINATION Gen: This is is a 70-year-old male. Patient is resting in recliner. Appears to be comfortable. No acute respiratory distress. HEENT: Head is atraumatic, normocephalic. Pupils equal, round. Sclerae is anicteric. NECK: Supple. No JVD. No lymphadenopathy. No thyromegaly. LUNGS: Clear to auscultation. No wheezes or rhonchi. No intercostal retractions. HEART: Regular rate and rhythm. No murmur. ABDOMEN: Soft. Bowel sounds are present. No masses. No tenderness. EXTREMITIES: 1+ lower extremity edema on the left, 2+ lower extremity edema on the right, go Jobst stocking in place. Right-sided lymphedema. NEUROLOGICAL: Patient is awake, alert and oriented x3. Cranial nerves 2 through 12 are grossly intact. ASSESSMENT AND PLAN 1. Acute diastolic heart failure secondary to recent withdrawal of diuretics secondary to acute kidney injury from ATN. Patient is currently on IV Lasix 40 mg every 8 hours, avoid hypotension, and neprhotoxic agents, echocardiogram as above, consult with cardiology appreciated. 2. CAD with prior CABG in the past, status post occlusive disease in the LAD, and diagonal branch patient is on a low course, followed by cardiology. 3. Diabetes mellitus type 2, uncontrolled with hyperglycemia. Continue Levemir 65 units in the morning and NovoLog scale. 4. CK D stage 3a poss transitioning to IV, with recent ATN related to covid atn 5. Covid infection 19 on 10/18 2020 with recovery of her Covid PCR virus is still positive. Obtain Covid markers CRP, ferritin, LDH, patient is on eliquis 6. Uncontrolled hypertension, on amlodipine 10 mg 3 times a day, hydralazine, and IV Lasix 40 mg every 8 hours 7. History of melanoma right ear, status post excision 8. Anemia of chronic kidney disease. 9. Hyperlipidemia. Continue Lipitor 10. History of GI bleed, none currently, stable on anticoagulation 11. DVT prophylaxis. Patient is on chronic anticoagulation, eliquis DISCHARGE PLAN Home tomorrow Impression and plan of care have been directed as dictated by the signing physician. Marry Andre nurse practitioner acting as scribe for signing physician. Objective - Vital Signs Vital signs: Vital Signs Temp 98.7 F 11/09/20 07:00 Pulse 65 11/09/20 07:00 Resp 21 11/09/20 07:00 BP 149/77 11/09/20 07:00 Pulse Ox 94 L 11/09/20 07:00 Intake & Output 11/08/20 11/09/20 11/09/20 18:59 06:59 18:59 Weight 96.162 kg Other: Voiding Method Toilet Toilet Toilet # Voids 2 # Bowel Movements 1 - Labs CBC & Chem 7: 11/09/20 05:50 11/09/20 05:50 Labs: Abnormal Lab Results - Last 24 Hours (Table) 11/08/20 11/08/20 11/08/20 Range/Units 11:48 11:48 13:14 RBC 3.61 L (4.30-5.90) m/uL Hgb 9.5 L (13.0-17.5) gm/dL Hct 28.7 L (39.0-53.0) % MCV 79.4 L (80.0-100.0) fL RDW 17.2 H (11.5-15.5) % Plt Count 138 L D (150-450) k/uL Lymphocytes # 0.8 L (1.0-4.8) k/uL Chloride 112 H (98-107) mmol/L BUN 38 H (9-20) mg/dL Creatinine 2.14 H (0.66-1.25) mg/dL Glucose 242 H (74-99) mg/dL POC Glucose (mg/dL) (75-99) mg/dL Calcium 8.3 L (8.4-10.2) mg/dL Magnesium 2.4 H (1.6-2.3) mg/dL Total Protein 5.5 L (6.3-8.2) g/dL Albumin 2.9 L (3.5-5.0) g/dL Coronavirus (PCR) Detected A (Not Detectd) 11/08/20 11/09/20 Range/Units 20:06 06:40 RBC (4.30-5.90) m/uL Hgb (13.0-17.5) gm/dL Hct (39.0-53.0) % MCV (80.0-100.0) fL RDW (11.5-15.5) % Plt Count (150-450) k/uL Lymphocytes # (1.0-4.8) k/uL Chloride (98-107) mmol/L BUN (9-20) mg/dL Creatinine (0.66-1.25) mg/dL Glucose (74-99) mg/dL POC Glucose (mg/dL) 352 H 214 H (75-99) mg/dL Calcium (8.4-10.2) mg/dL Magnesium (1.6-2.3) mg/dL Total Protein (6.3-8.2) g/dL Albumin (3.5-5.0) g/dL Coronavirus (PCR) (Not Detectd)
[2020-11-09 13:29] VITALS: BMI 34.2
[2020-11-09 16:51] LABS: Glucose,Whole Blood 86 mg/dL (75-99)
[2020-11-09 18:42] LABS: Hemoglobin A1C 9.1 % (4.0-6.0)
[2020-11-09 21:21] LABS: Glucose,Whole Blood 158 mg/dL (75-99)
[2020-11-09] MEDS: FAMOTIDINE 20 MG TAB PO SCH (21:41)
[2020-11-10] MEDS: FUROSEMIDE 10 MG/ML 4 ML VIAL IV SCH (04:55)
[2020-11-10 07:04] LABS: Glucose,Whole Blood 63 mg/dL (75-99)
[2020-11-10 07:24] LABS: Glucose,Whole Blood 68 mg/dL (75-99)
[2020-11-10] MEDS ORDERED: INSULIN DETEMIR (LEVEMIR) 100 UNIT/ML SYR SQ SCH (07:30)
[2020-11-10] MEDS: ASCORBIC ACID 500 MG TAB PO SCH (08:39)
[2020-11-10] MEDS: APIXABAN 5 MG TAB PO SCH (08:39)
[2020-11-10] MEDS: SODIUM BICARBONATE TAB 650 MG TAB PO SCH ×2 (08:39→21:20)
[2020-11-10] MEDS: hydrALAZINE HCL 50 MG TAB PO SCH ×3 (08:39→21:19)
[2020-11-10] MEDS: CHOLECALCIFEROL 25 MCG (1000 IU) TABLET PO SCH (08:39)
[2020-11-10] MEDS: ASPIRIN 81 MG PO SCH (08:39)
[2020-11-10] MEDS: carvediloL 12.5 MG TAB PO SCH ×2 (08:39→18:09)
[2020-11-10] MEDS: ATORVASTATIN 80 MG TAB PO SCH (08:39)
[2020-11-10] MEDS: ZINC SULFATE 220 MG CAP PO SCH (08:39)
[2020-11-10] MEDS: POTASSIUM CHLORIDE ER 20 MEQ TAB.ER PO SCH (08:39)
[2020-11-10] MEDS: INSULIN ASPART (NovoLOG) 100 UNIT/ML VIAL SQ SCH ×4 (08:40→21:15)
[2020-11-10 08:54] LABS: Basophils # (A) 0.02 X 10*3/uL (0.00-0.10); Basophils % (A) 0.4 %; Eosinophils # (A) 0.32 X 10*3/uL (0.04-0.35); Eosinophils % (A) 5.8 %; HGB 8.6 g/dL (13.0-17.0); Lymphocytes # (A) 1.01 X 10*3/uL (0.90-5.00); Lymphocytes % (A) 18.3 %; MCH 26.5 pg (27.0-32.0); MCHC 33.1 g/dL (32.0-37.0); Mean Platelet Volume 9.8 fL (9.5-12.2); Monocytes # (A) 0.62 X 10*3/uL (0.20-1.00); Monocytes % (A) 11.2 %; Neutrophils # (A) 3.51 X 10*3/uL (1.80-7.70); Neutrophils % (A) 63.6 %; Platelet Count 141 X 10*3/uL (140-440); RBC 3.25 X 10*6/uL (4.40-5.60); RDW 16.7 % (11.5-14.5); WBC 5.52 X 10*3/uL (4.50-10.00)
[2020-11-10 09:57] LABS: African American GFR (CKD) 34.2 (60.0-200.0); Albumin/Globulin Ratio 1.88 (1.60-3.17); Anion Gap 6.6 mmol/L (4.00-12.00); BUN/Creat Ratio 19.09 Ratio (12.00-20.00); Carbon Dioxide 25.4 mmol/L (21.6-31.8); Globulin 1.6 g/dL (1.6-3.3); Non-African American GFR(CKD) 29.5 (60.0-200.0); Total Bilirubin 0.4 mg/dL (0.2-1.2); Total Protein 4.6 g/dL (6.2-8.2)
[2020-11-10 11:03] LABS: Glucose,Whole Blood 161 mg/dL (75-99)
--- NOTE | 2020-11-10 11:07 | PN ---
PROGRESS NOTE Mr. Kim is a 70-year-old male who presented with symptoms of progressive dyspnea. He has recent COVID-19 infection. He is feeling much better today. His breathing is better. He continues to have some peripheral edema, although not as severe. He has no PND, no orthopnea. He has a prior history of coronary artery disease with status post coronary artery bypass grafting in the past as well prior history of DVT. He denies any PND nor orthopnea. He continues to be at this time on Eliquis 5 mg twice a day, aspirin 81 mg daily, Coreg 25 mg daily, furosemide 40 mg twice a day, potassium and hydralazine 100 mg 3 times a day. PHYSICAL EXAMINATION: Blood pressure running in the 140s to 170s with the heart rate in the 60s. LUNGS: Clear. HEART: Regular rate and rhythm. S1, S2. No S3. No rub appreciated. ABDOMEN: Soft, nontender. EXTREMITIES: +1 edema bilaterally. IMPRESSION: 1. Symptoms of progressive dyspnea with element of congestive heart failure with a preserved systolic function. 2. History of recent COVID. 3. Status post coronary artery bypass grafting. 4. Hypertension. 5. Hyperlipidemia. RECOMMENDATION: From the cardiac standpoint, I will change his Coreg to 12.5 mg twice a day. The patient should be able to be discharged home soon and followed as an outpatient. MMODL / IJN: [id number] /
[2020-11-10] MEDS: amLODIPine 5 MG TAB PO SCH (12:51)
--- NOTE | 2020-11-10 14:28 | P.PN ---
Subjective Progress Note Date: 11/10/20 HISTORY OF PRESENT ILLNESS This is a 70-year-old gentleman patient of Dr. Wyatt Pereira. He has underlying history of diabetes mellitus type 2, CAD with prior CABG, CK D stage III, hypertension, recent covid infection, who had an acute kidney injury secondary to covid infection September 2020, for which she was seen by nephrology at that time. Presents to the emergency room secondary to difficulty breathing, one week prior to admission. Dyspnea has worsened up, there is worsening of the chronic lower leg edema,, he comes in without any diuretic a 6, secondary to acute kidney injury at that time. He has a current creatinine of 2.14, sodium 138, INR 1.0, albumin 2.9, hemoglobin of 9.5 WBC count of 5.0 blood pressure elevated at 170 systolic, 96% on room air. Next Emergency room, chest x-ray showed pneumonia, and CHF. Troponin is 0.015, FIELD INTERVIEWER proBNP 30-20, lactic acid of 0.8 patient admitted for CHF exacerbation. 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 Echocardiogram requested 11/09: Patient has been afebrile, heart rate in the 60s and 70s, blood pressure 149/77, pulse ox 94% on room air. Blood sugars are running between 214 and 352. Pro calcitonin was 0.09. LDH 108. C-reactive protein 6.4. Repeat blood work today reveals WBC 4.6, hemoglobin 8.4, platelet count 129. BUN 39 and creatinine 2.2. Patient continues to complain of shortness of breath with exertion. He has decreased edema. 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 Jobst stocking in place on the right leg as well. Patient has been seen by cardiology and currently on Lasix 40 mg IV every 8 hours. Plan to to transition to oral tomorrow. Echocardiogram reveals EF of 55-60% with mild mitral regurgitation, moderate tricuspid regurgitation, moderate to severe pulmonary hypertension. 11/10: Patient's weight is down 2 pounds. Blood sugar was low this morning for which his scheduled Levemir this morning was decreased to 50 units from 65 units. Patient has decreased lower extremity edema. He is not requiring oxygen. He denies shortness of breath. We will plan for Lasix changed to 40 mg oral twice daily and probable discharge tomorrow. Hemoglobin 8.6. BUN 42 and creatinine 2.2. Blood culture no growth at 48 hours. REVIEW OF SYSTEMS Constitutional: No fever, no chills, no night sweats. No weight change. No weakness, fatigue or lethargy. No daytime sleepiness. EENT: No headache. No blurred vision or double vision, no loss of vision. No loss of Hearing, no ringing in the ears, no dizziness. No nasal drainage or congestion. No epistaxis. No sore throat. Lungs: Reports shortness of breath, reports dyspnea with exertion, no cough, no sputum production. No wheezing. Cardiovascular: No chest pain, reports lower extremity edema. No palpitations. No paroxysmal nocturnal dyspnea. No orthopnea. No lightheadedness or dizziness. No syncopal episodes. Abdominal: No abdominal pain. No nausea, vomiting. No diarrhea. No constipation. No bloody or tarry stools.. No loss of appetite. Genitourinary: No dysuria, increased frequency, urgency. No urinary retention. Musculoskeletal: No myalgias. No muscle weakness, no gait dysfunction, no freq uent falls. No back pain. No neck pain. Integumentary: No wounds, no lesions. No rash or pruritus. No unusual bruising. No change in hair or nails. Neurologic: No aphasia. No facial droop. No change in mentation. No head injury. No headache. No paralysis. No paresthesia. Psychiatric: No depression. No anxiety. No mood swings. Endocrine: Reports abnormal blood sugars. No weight change. No excessive sweating or thirst. No cold intolerance. PHYSICAL EXAMINATION Gen: This is is a 70-year-old male. Patient is resting in recliner. Appears to be comfortable. No acute respiratory distress. HEENT: Head is atraumatic, normocephalic. Pupils equal, round. Sclerae is anicteric. NECK: Supple. No JVD. No lymphadenopathy. No thyromegaly. LUNGS: Clear to auscultation. No wheezes or rhonchi. No intercostal retractions. HEART: Regular rate and rhythm. No murmur. ABDOMEN: Soft. Bowel sounds are present. No masses. No tenderness. EXTREMITIES: 1+ lower extremity edema on the left, 2+ lower extremity edema on the right, go Jobst stocking in place. Right-sided lymphedema. NEUROLOGICAL: Patient is awake, alert and oriented x3. Cranial nerves 2 through 12 are grossly intact. ASSESSMENT AND PLAN 1. Acute diastolic heart failure secondary to recent withdrawal of diuretics secondary to acute kidney injury from ATN. Patient is currently on IV Lasix 40 mg every 8 hours changed to oral twice daily, avoid hypotension, and neprhotoxic agents, echocardiogram as above, consult with cardiology appreciated. 2. CAD with prior CABG in the past, status post occlusive disease in the LAD, and diagonal branch patient is on a low course, followed by cardiology. 3. Diabetes mellitus type 2, uncontrolled with hyperglycemia. Continue Levemir 65 units in the morning and NovoLog scale. 4. CK D stage 3a poss transitioning to IV, with recent ATN related to covid atn 5. Covid infection 19 on 10/18 2020 with recovery of her Covid PCR virus is still positive. Obtain Covid markers CRP, ferritin, LDH, patient is on eliquis 6. Uncontrolled hypertension, on amlodipine 10 mg 3 times a day, hydralazine, and IV Lasix 40 mg every 8 hours 7. History of melanoma right ear, status post excision 8. Anemia of chronic kidney disease. 9. Hyperlipidemia. Continue Lipitor 10. History of GI bleed, none currently, stable on anticoagulation 11. DVT prophylaxis. Patient is on chronic anticoagulation, eliquis DISCHARGE PLAN Home tomorrow Impression and plan of care have been directed as dictated by the signing physician. Marry Andre nurse practitioner acting as scribe for signing scott chiu. Objective - Vital Signs Vital signs: Vital Signs Temp 97.7 F 11/10/20 07:00 Pulse 54 L 11/10/20 07:00 Resp 18 11/10/20 07:00 BP 171/76 11/10/20 07:00 Pulse Ox 96 11/10/20 07:00 Intake & Output 11/09/20 11/10/20 11/10/20 18:59 06:59 18:59 Intake Total 1000 Balance 1000 Weight 96.16 kg 95.3 kg Intake: Oral 1000 Other: Voiding Method Toilet Toilet Toilet # Voids 3 4 # Bowel Movements 2 - Labs CBC & Chem 7: 11/10/20 06:05 11/10/20 06:05 Labs: Abnormal Lab Results - Last 24 Hours (Table) 11/09/20 11/09/20 11/09/20 Range/Units 05:50 11:33 21:20 RBC (4.40-5.60) X 10*6/uL Hgb (13.0-17.0) g/dL Hct (39.6-50.0) % MCH (27.0-32.0) pg RDW (11.5-14.5) % Chloride (96-109) mmol/L BUN (9.0-27.0) mg/dL Creatinine (0.6-1.5) mg/dL Est GFR (CKD-EPI)AfAm (60.0-200.0) Est GFR (CKD-EPI)NonAf (60.0-200.0) Glucose (70-110) mg/dL POC Glucose (mg/dL) 286 H 158 H (75-99) mg/dL Hemoglobin A1c 9.1 H (4.0-6.0) % Calcium (8.7-10.3) mg/dL Total Protein (6.2-8.2) g/dL Albumin (3.80-4.90) g/dL 11/10/20 11/10/20 11/10/20 Range/Units 06:05 06:05 07:03 RBC 3.25 L (4.40-5.60) X 10*6/uL Hgb 8.6 L (13.0-17.0) g/dL Hct 26.0 L (39.6-50.0) % MCH 26.5 L (27.0-32.0) pg RDW 16.7 H (11.5-14.5) % Chloride 110 H (96-109) mmol/L BUN 42.0 H (9.0-27.0) mg/dL Creatinine 2.2 H (0.6-1.5) mg/dL Est GFR (CKD-EPI)AfAm 34.2 L (60.0-200.0) Est GFR (CKD-EPI)NonAf 29.5 L (60.0-200.0) Glucose 50 L (70-110) mg/dL POC Glucose (mg/dL) 63 L (75-99) mg/dL Hemoglobin A1c (4.0-6.0) % Calcium 8.0 L (8.7-10.3) mg/dL Total Protein 4.6 L (6.2-8.2) g/dL Albumin 3.00 L (3.80-4.90) g/dL 11/10/20 Range/Units 07:21 RBC (4.40-5.60) X 10*6/uL Hgb (13.0-17.0) g/dL Hct (39.6-50.0) % MCH (27.0-32.0) pg RDW (11.5-14.5) % Chloride (96-109) mmol/L BUN (9.0-27.0) mg/dL Creatinine (0.6-1.5) mg/dL Est GFR (CKD-EPI)AfAm (60.0-200.0) Est GFR (CKD-EPI)NonAf (60.0-200.0) Glucose (70-110) mg/dL POC Glucose (mg/dL) 68 L (75-99) mg/dL Hemoglobin A1c (4.0-6.0) % Calcium (8.7-10.3) mg/dL Total Protein (6.2-8.2) g/dL Albumin (3.80-4.90) g/dL Microbiology - Last 24 Hours (Table) 11/08/20 12:01 Blood Culture - Preliminary Blood No Growth after 24 hours 11/08/20 11:55 Blood Culture - Preliminary Blood No Growth after 24 hours
[2020-11-10] MEDS: FUROSEMIDE 40 MG TAB PO SCH (16:21)
[2020-11-10 17:24] LABS: Glucose,Whole Blood 207 mg/dL (75-99)
[2020-11-10 21:11] LABS: Glucose,Whole Blood 124 mg/dL (75-99)
[2020-11-10 21:14] VITALS: TEMP 98.7
[2020-11-10] MEDS: APIXABAN 2.5 MG TABLET PO SCH (21:19)
[2020-11-10] MEDS: FAMOTIDINE 20 MG TAB PO SCH (21:20)
[2020-11-11] MEDS ORDERED: INSULIN DETEMIR (LEVEMIR) 100 UNIT/ML SYR SQ SCH (07:00)
[2020-11-11] MEDS: INSULIN ASPART (NovoLOG) 100 UNIT/ML VIAL SQ SCH ×2 (07:25→13:08)
[2020-11-11 07:44] LABS: Glucose,Whole Blood 55 mg/dL (75-99)
[2020-11-11] MEDS: carvediloL 12.5 MG TAB PO SCH (07:49)
[2020-11-11 07:56] LABS: Glucose,Whole Blood 66 mg/dL (75-99)
[2020-11-11] MEDS: hydrALAZINE HCL 50 MG TAB PO SCH (08:26)
[2020-11-11] MEDS: APIXABAN 2.5 MG TABLET PO SCH (08:27)
[2020-11-11] MEDS: FUROSEMIDE 40 MG TAB PO SCH (08:27)
[2020-11-11] MEDS: ASPIRIN 81 MG PO SCH (08:27)
[2020-11-11] MEDS: ZINC SULFATE 220 MG CAP PO SCH (08:28)
[2020-11-11] MEDS: amLODIPine 5 MG TAB PO SCH (08:28)
[2020-11-11] MEDS: POTASSIUM CHLORIDE ER 20 MEQ TAB.ER PO SCH (08:28)
[2020-11-11] MEDS: ATORVASTATIN 80 MG TAB PO SCH (08:28)
[2020-11-11 08:32] LABS: Glucose,Whole Blood 107 mg/dL (75-99)
[2020-11-11] MEDS: CHOLECALCIFEROL 25 MCG (1000 IU) TABLET PO SCH (08:34)
[2020-11-11] MEDS: SODIUM BICARBONATE TAB 650 MG TAB PO SCH (08:35)
[2020-11-11] MEDS: ASCORBIC ACID 500 MG TAB PO SCH (08:35)
--- NOTE | 2020-11-11 08:42 | P.DS ---
Providers Date of admission: 11/09/20 09:06 Expected date of discharge: 11/11/20 Attending physician: Olesya Byrd Consults: 11/08/20 13:14 Consult Physician Routine Consulting Provider: Flaco Lin Consult Reason/Comments: chf Do you want consulting provider notified?: Yes Primary care physician: [facility] Course: HISTORY OF PRESENT ILLNESS This is a 70-year-old gentleman patient of Dr. Wyatt Pereira. He has underlying history of diabetes mellitus type 2, CAD with prior CABG, CK D stage III, hypertension, recent covid infection, who had an acute kidney injury secondary to covid infection September 2020, for which she was seen by nephrology at that time. Presents to the emergency room secondary to difficulty breathing, one we ek prior to admission. Dyspnea has worsened up, there is worsening of the chronic lower leg edema,, he comes in without any diuretic a 6, secondary to acute kidney injury at that time. He has a current creatinine of 2.14, sodium 138, INR 1.0, albumin 2.9, hemoglobin of 9.5 WBC count of 5.0 blood pressure elevated at 170 systolic, 96% on room air. Next Emergency room, chest x-ray showed pneumonia, and CHF. Troponin is 0.015, VFX ARTIST proBNP 30-20, lactic acid of 0.8 patient admitted for CHF exacerbation. 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 Echocardiogram requested 11/09: Patient has been afebrile, heart rate in the 60s and 70s, blood pressure 149/77, pulse ox 94% on room air. Blood sugars are running between 214 and 352. Pro calcitonin was 0.09. LDH 108. C-reactive protein 6.4. Repeat blood work today reveals WBC 4.6, hemoglobin 8.4, platelet count 129. BUN 39 and creatinine 2.2. Patient continues to complain of shortness of breath with exertion. He has decreased edema. 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 Jobst stocking in place on the right leg as well. Patient has been seen by cardiology and currently on Lasix 40 mg IV every 8 hours. Plan to to transition to oral barbara rrow. Echocardiogram reveals EF of 55-60% with mild mitral regurgitation, moderate tricuspid regurgitation, moderate to severe pulmonary hypertension. 11/10: Patient's weight is down 2 pounds. Blood sugar was low this morning for which his scheduled Levemir this morning was decreased to 50 units from 65 units. Patient has decreased lower extremity edema. He is not requiring oxygen. He denies shortness of breath. We will plan for Lasix changed to 40 mg oral twice daily and probable discharge tomorrow. Hemoglobin 8.6. BUN 42 and creatinine 2.2. Blood culture no growth at 48 hours. 11/11: Denies any new complaints. He denies any lightheadedness or dizziness. Blood sugar was noted to be 55 this morning even with the reduced dose of long- acting insulin. Cardiology is decrease Coreg to 12.5 twice daily. We will decrease his Levemir for home from a total of 65 down to 45. He has been afebrile, heart rate 68, blood pressure 173/80, pulse ox 96% on room air. ASSESSMENT AND PLAN 1. Acute diastolic heart failure secondary to recent withdrawal of diuretics secondary to acute kidney injury from ATN. 2. CAD with prior CABG in the past, status post occlusive disease in the LAD, and diagonal branch 3. Diabetes mellitus type 2, uncontrolled with hyperglycemia. 4. CK D stage 3a poss transitioning to IV, with recent ATN related to covid atn 5. Covid infection 19 on 10/18 2020 with recovery but Covid PCR virus is still positive. 6. Uncontrolled hypertension 7. History of melanoma right ear, status post excision 8. Anemia of chronic kidney disease. 9. Hyperlipidemia. 10. History of GI bleed, none currently, stable on anticoagulation DISCHARGE PLAN Home Impression and plan of care have been directed as dictated by the signing physician. Marry Andre nurse practitioner acting as scribe for signing physician. Patient Condition at Discharge: Good Plan - Discharge Summary Discharge Rx Participant: No New Discharge Prescriptions: New carvediloL [Coreg*] 12.5 mg PO BID-W/MEALS #60 tab Potassium Chloride ER [K-Dur 20] 20 meq PO DAILY #30 tab.er.prt Furosemide [Lasix] 40 mg PO BID@0900,1600 #60 tab Continue Atorvastatin [Lipitor] 80 mg PO DAILY Apixaban [Eliquis] 5 mg PO BID #74 tab Acetaminophen Tab [Tylenol] 500 mg PO Q6H PRN PRN Reason: Pain Aspirin EC [Ecotrin Low Dose] 81 mg PO DAILY amLODIPine [Norvasc] 5 mg PO DAILY 30 Days #30 tab Zinc Sulfate [Orazinc] 220 mg PO DAILY cap Sodium Bicarbonate Tab 1,300 mg PO BID tab Ascorbic Acid [Vitamin C] 1,000 mg PO DAILY tab Cholecalciferol [Vitamin D3 (25 Mcg = 1000 Iu)] 50 mcg PO DAILY tablet hydrALAZINE HCL [Apresoline] 100 mg PO TID Changed Insulin Detemir (Levemir) [Levemir] 45 unit SQ DAILY@0700 #0 syr Discontinued Carvedilol [Coreg] 25 mg PO DAILY Discharge Medication List Atorvastatin [Lipitor] 80 mg PO DAILY 04/30/17 [History] Apixaban [Eliquis] 5 mg PO BID #74 tab 08/16/18 [Rx] Acetaminophen Tab [Tylenol] 500 mg PO Q6H PRN 10/18/20 [History] Aspirin EC [Ecotrin Low Dose] 81 mg PO DAILY 10/18/20 [History] Ascorbic Acid [Vitamin C] 1,000 mg PO DAILY tab 10/22/20 [Rx] Cholecalciferol [Vitamin D3 (25 Mcg = 1000 Iu)] 50 mcg PO DAILY tablet 10/22/20 [Rx] Sodium Bicarbonate Tab 1,300 mg PO BID tab 10/22/20 [Rx] Zinc Sulfate [Orazinc] 220 mg PO DAILY cap 10/22/20 [Rx] amLODIPine [Norvasc] 5 mg PO DAILY 30 Days #30 tab 10/22/20 [Rx] hydrALAZINE HCL [Apresoline] 100 mg PO TID 10/28/20 [History] Furosemide [Lasix] 40 mg PO BID@0900,1600 #60 tab 11/11/20 [Rx] Insulin Detemir (Levemir) [Levemir] 45 unit SQ DAILY@0700 #0 syr 11/11/20 [Rx] Potassium Chloride ER [K-Dur 20] 20 meq PO DAILY #30 tab.er.prt 11/11/20 [Rx] carvediloL [Coreg*] 12.5 mg PO BID-W/MEALS #60 tab 11/11/20 [Rx] Follow up Appointment(s)/Referral(s): [facility] [Provider Group] - 1 Week Jayna Klein MD [STAFF PHYSICIAN] - 1 Week Tremaine Pereira MD [Primary Care Provider] - 1 Week Discharge Disposition: HOME SELF-CARE
[2020-11-11 09:19] LABS: Basophils # (A) 0.03 X 10*3/uL (0.00-0.10); Basophils % (A) 0.7 %; Eosinophils # (A) 0.29 X 10*3/uL (0.04-0.35); Eosinophils % (A) 6.4 %; HCT 23.7 % (39.6-50.0); Lymphocytes # (A) 1.03 X 10*3/uL (0.90-5.00); Lymphocytes % (A) 22.8 %; MCHC 33.8 g/dL (32.0-37.0); MCV 80.1 fL (80.0-97.0); Mean Platelet Volume 10.3 fL (9.5-12.2); Monocytes # (A) 0.63 X 10*3/uL (0.20-1.00); Monocytes % (A) 13.9 %; Neutrophils # (A) 2.51 X 10*3/uL (1.80-7.70); Neutrophils % (A) 55.5 %; Platelet Count 140 X 10*3/uL (140-440); RBC 2.96 X 10*6/uL (4.40-5.60); WBC 4.52 X 10*3/uL (4.50-10.00)
[2020-11-11 10:59] VITALS: BP 169/74; PULSE 65; RESP 18
[2020-11-11] MEDS ORDERED: amLODIPine 5 MG TAB PO STA (11:03)
--- NOTE | 2020-11-11 11:05 | P.PN ---
Subjective Patient is seen and examined resting comfortably sitting up in bed in no acute distress. Overall he states he is feeling better. He is having no active shortness of breath. He has no chest pain, dizziness or palpitations. Lower extremity edema has improved. Blood pressure 169/74 heart rate 65 afebrile maintaining oxygen saturation on room air. Laboratory data reviewed, WBC 4.5, hemoglobin 8, platelets 140. GENERAL: Well-appearing, well-nourished and in no acute distress. NECK: Supple without JVD or thyromegaly. LUNGS: Breath sounds clear to auscultation bilaterally. Respiration equal and unlabored. No wheezes, rales or rhonchi. HEART: Regular rate and rhythm without murmurs, rubs or gallops. S1 and S2 heard. EXTREMITIES: Normal range of motion, bilateral lower extremity trace edema. No clubbing or cyanosis. Peripheral pulses intact. ASSESSMENT Acute on chronic diastolic heart failure Covid 19 Coronary artery disease status post bypass grafting Hypertension Dyslipidemia PLAN Clinically stable from a cardiac perspective. Blood pressure remain elevated despite splitting his coreg yesterday. Increase norvasc to 10 mg daily. Follow up in the office with Dr. Xiong in 2 weeks. Nurse Practitioner note has been reviewed, I agree with a documented findings and plan of care. Patient was seen and examined. Objective - Vital Signs Vital signs: Vital Signs Temp 98.7 F 11/11/20 07:23 Pulse 65 11/11/20 07:23 Resp 18 11/11/20 07:23 BP 169/74 11/11/20 07:23 Pulse Ox 94 L 11/11/20 07:23 Intake & Output 11/10/20 11/11/20 11/11/20 18:59 06:59 18:59 Intake Total 320 Output Total 500 1050 Balance -180 -1050 Weight 95.3 kg Intake: Oral 320 Output: Urine 500 1050 Other: Voiding Method Toilet Toilet Toilet # Voids 400 - Labs CBC & Chem 7: 11/11/20 06:01 11/10/20 06:05 Labs: Abnormal Lab Results - Last 24 Hours (Table) 11/10/20 11/10/20 11/10/20 Range/Units 11:00 17:21 21:10 RBC (4.40-5.60) X 10*6/uL Hgb (13.0-17.0) g/dL Hct (39.6-50.0) % RDW (11.5-14.5) % POC Glucose (mg/dL) 161 H 207 H 124 H (75-99) mg/dL 11/11/20 11/11/20 11/11/20 Range/Units 06:01 07:20 07:46 RBC 2.96 L (4.40-5.60) X 10*6/uL Hgb 8.0 L (13.0-17.0) g/dL Hct 23.7 L (39.6-50.0) % RDW 17.0 H (11.5-14.5) % POC Glucose (mg/dL) 55 L 66 L (75-99) mg/dL 11/11/20 Range/Units 08:25 RBC (4.40-5.60) X 10*6/uL Hgb (13.0-17.0) g/dL Hct (39.6-50.0) % RDW (11.5-14.5) % POC Glucose (mg/dL) 107 H (75-99) mg/dL Microbiology - Last 24 Hours (Table) 11/08/20 12:01 Blood Culture - Preliminary Blood No Growth after 48 hours 11/08/20 11:55 Blood Culture - Preliminary Blood No Growth after 48 hours
[2020-11-11 12:42] LABS: Glucose,Whole Blood 194 mg/dL (75-99)
[2020-11-12] MEDS ORDERED: amLODIPine 10 MG TAB PO SCH (09:00)
== END 2020-11-11 13:15 | disposition home or self-care (01) | DRG 291 ==
LOC: EC 11:08 → 6NMEDSUR 13:23 → OBSVTOIN 11-09 09:06
PROVIDERS: ADMIT Family Medicine; ATTEND Family Medicine
DX: I13.0 Hypertensive heart and chronic kidney disease with heart failure and stage 1 through stage 4 chronic kidney disease, or unspecified chronic kidney disease (principal); I50.33 Acute on chronic diastolic (congestive) heart failure; U07.1 COVID-19; N17.0 Acute kidney failure with tubular necrosis; C85.90 Non-Hodgkin lymphoma, unspecified, unspecified site; E87.2 Acidosis; D63.1 Anemia in chronic kidney disease; D69.6 Thrombocytopenia, unspecified; E11.22 Type 2 diabetes mellitus with diabetic chronic kidney disease; E11.65 Type 2 diabetes mellitus with hyperglycemia; E78.5 Hyperlipidemia, unspecified; I08.1 Rheumatic disorders of both mitral and tricuspid valves; I27.20 Pulmonary hypertension, unspecified; I25.10 Atherosclerotic heart disease of native coronary artery without angina pectoris; I25.2 Old myocardial infarction; I89.0 Lymphedema, not elsewhere classified; N18.31 Chronic kidney disease, stage 3a; Z79.01 Long term (current) use of anticoagulants; Z79.4 Long term (current) use of insulin; Z79.82 Long term (current) use of aspirin; Z79.899 Other long term (current) drug therapy; I48.0 Paroxysmal atrial fibrillation; Z85.820 Personal history of malignant melanoma of skin; Z86.718 Personal history of other venous thrombosis and embolism; Z95.1 Presence of aortocoronary bypass graft; Z87.19 Personal history of other diseases of the digestive system
CPT/HCPCS: 36415; 71045; 80053; 82728; 83036; 83605; 83615; 83735; 83880; 84145; 84484; 85025; 85610; 85730; 86140; 87040; 87635; 93005; 93306; 94640; 96374; 99285

== ENCOUNTER → 2020-12-28 | Outpatient (CLI) | payer OTHER ==
[2020-12-28 08:49] LABS: Appearance,Urine Clear (Clear); Bilirubin,Urine Negative (Negative); Blood,Urine Negative (Negative); Color,Urine Light Yellow; Glucose,Urine (UA) Trace (Negative); Hyaline Casts,Urine 1 /lpf (0-2); Ketones,Urine Negative (Negative); Leukocyte Esterase,Urine Negative (Negative); Mucus,Urine Rare /hpf; Nitrite,Urine Negative (Negative); PH, Urine 6.5 (5.0-8.0); Protein,Urine 2+ (Negative); RBC,Urine 2 /hpf (0-5); Specific Gravity,Urine 1.012 (1.001-1.035); Squamous Epithelial Cell,Urine <1 /hpf (0-4); Urobilinogen,Urine <2.0 mg/dL (<2.0); WBC,Urine <1 /hpf (0-5)
[2020-12-28 10:01] LABS: Creatinine,Urine Random 56.6 mg/dL
[2020-12-28 10:26] LABS: Protein/Creatinine Ratio,Urine 7.668
[2020-12-28 15:08] LABS: Basophils # (A) 0.04 X 10*3/uL (0.00-0.10); Basophils % (A) 0.7 %; Eosinophils # (A) 0.29 X 10*3/uL (0.04-0.35); HCT 28.5 % (39.6-50.0); HGB 9.1 g/dL (13.0-17.0); Lymphocytes # (A) 1.33 X 10*3/uL (0.90-5.00); Lymphocytes % (A) 22.9 %; MCH 26.4 pg (27.0-32.0); MCHC 31.9 g/dL (32.0-37.0); MCV 82.6 fL (80.0-97.0); Mean Platelet Volume 10.4 fL (9.5-12.2); Monocytes # (A) 0.73 X 10*3/uL (0.20-1.00); Monocytes % (A) 12.6 %; Neutrophils # (A) 3.37 X 10*3/uL (1.80-7.70); Neutrophils % (A) 57.9 %; Platelet Count 182 X 10*3/uL (140-440); RBC 3.45 X 10*6/uL (4.40-5.60); RDW 15.7 % (11.5-14.5); WBC 5.81 X 10*3/uL (4.50-10.00)
[2020-12-28 16:59] LABS: % Iron Saturation 12.19 (15.00-50.00); African American GFR (CKD) 30.7 (60.0-200.0); Anion Gap 9.5 mmol/L (4.00-12.00); BUN/Creat Ratio 24.58 Ratio (12.00-20.00); Carbon Dioxide 21.5 mmol/L (21.6-31.8); Magnesium 2.3 mg/dL (1.5-2.4); Non-African American GFR(CKD) 26.5 (60.0-200.0); Phosphorus 4.5 mg/dL (2.4-5.1); Potassium 5.5 mmol/L (3.5-5.5); Uric Acid 9.3 mg/dL (3.7-8.7)
[2020-12-28 17:07] LABS: Ferritin 40.4 ng/mL (22.0-322.0)
== END | disposition home or self-care (01) ==
LOC: LABWHC1 08:17
PROVIDERS: ATTEND Internal Medicine Nephrology
DX: E55.9 Vitamin D deficiency, unspecified (principal); D64.9 Anemia, unspecified; N39.0 Urinary tract infection, site not specified; N18.31 Chronic kidney disease, stage 3a; N25.81 Secondary hyperparathyroidism of renal origin; M10.9 Gout, unspecified; R80.9 Proteinuria, unspecified
CPT/HCPCS: 36415; 80048; 81001; 82040; 82306; 82570; 82728; 83540; 83550; 83735; 83970; 84100; 84156; 84550; 85025

== ENCOUNTER → 2021-01-30 | Outpatient (CLI) | payer OTHER ==
[2021-01-30 17:23] LABS: Appearance,Urine Clear (Clear); Bilirubin,Urine Negative (Negative); Blood,Urine Trace (Negative); Color,Urine Light Yellow; Glucose,Urine (UA) 3+ (Negative); Hyaline Casts,Urine 3 /lpf (0-2); Ketones,Urine Negative (Negative); Leukocyte Esterase,Urine Negative (Negative); Mucus,Urine Rare /hpf; Nitrite,Urine Negative (Negative); PH, Urine 5.5 (5.0-8.0); Protein,Urine 2+ (Negative); RBC,Urine 2 /hpf (0-5); Squamous Epithelial Cell,Urine <1 /hpf (0-4); Urobilinogen,Urine <2.0 mg/dL (<2.0); WBC,Urine 1 /hpf (0-5)
[2021-01-30 17:28] LABS: Creatinine,Urine Random 75.4 mg/dL
[2021-01-30 17:42] LABS: Protein/Creatinine Ratio,Urine 4.35
[2021-01-30 23:50] LABS: Basophils # (A) 0.02 X 10*3/uL (0.00-0.10); Basophils % (A) 0.4 %; Eosinophils # (A) 0.24 X 10*3/uL (0.04-0.35); Eosinophils % (A) 4.2 %; HCT 28.8 % (39.6-50.0); HGB 9.1 g/dL (13.0-17.0); Lymphocytes # (A) 0.82 X 10*3/uL (0.90-5.00); Lymphocytes % (A) 14.5 %; MCH 25.2 pg (27.0-32.0); MCHC 31.6 g/dL (32.0-37.0); MCV 79.8 fL (80.0-97.0); Mean Platelet Volume 9.9 fL (9.5-12.2); Monocytes # (A) 0.63 X 10*3/uL (0.20-1.00); Monocytes % (A) 11.2 %; Neutrophils # (A) 3.91 X 10*3/uL (1.80-7.70); Neutrophils % (A) 69.2 %; Platelet Count 173 X 10*3/uL (140-440); RBC 3.61 X 10*6/uL (4.40-5.60); RDW 16.4 % (11.5-14.5); WBC 5.65 X 10*3/uL (4.50-10.00)
[2021-01-31 10:23] LABS: % Iron Saturation 8.31 (15.00-50.00); African American GFR (CKD) 32.1 (60.0-200.0); Albumin 3.9 g/dL (3.80-4.90); Anion Gap 12.8 mmol/L (4.00-12.00); BUN/Creat Ratio 26.52 Ratio (12.00-20.00); Calcium 8.3 mg/dL (8.7-10.3); Carbon Dioxide 19.2 mmol/L (21.6-31.8); Magnesium 2.2 mg/dL (1.5-2.4); Non-African American GFR(CKD) 27.7 (60.0-200.0); Phosphorus 4.1 mg/dL (2.4-5.1); Potassium 4.5 mmol/L (3.5-5.5)
[2021-01-31 10:27] LABS: Ferritin 46.6 ng/mL (22.0-322.0)
== END | disposition home or self-care (01) ==
LOC: LABWHC1 16:06
PROVIDERS: ATTEND Internal Medicine Nephrology
DX: N18.31 Chronic kidney disease, stage 3a (principal); E55.9 Vitamin D deficiency, unspecified; N25.81 Secondary hyperparathyroidism of renal origin; M10.9 Gout, unspecified; N39.0 Urinary tract infection, site not specified; R80.9 Proteinuria, unspecified; D64.9 Anemia, unspecified
CPT/HCPCS: 36415; 80048; 81001; 82040; 82306; 82570; 82728; 83540; 83550; 83735; 83970; 84100; 84156; 84550; 85025

== ENCOUNTER → 2021-03-01 | Outpatient (CLI) | payer OTHER ==
[2021-03-01 16:35] LABS: Appearance,Urine Clear (Clear); Bacteria,Urine Rare /hpf; Bilirubin,Urine Negative (Negative); Blood,Urine Negative (Negative); Color,Urine Yellow; Glucose,Urine (UA) Negative (Negative); Hyaline Casts,Urine 4 /lpf (0-2); Ketones,Urine Negative (Negative); Leukocyte Esterase,Urine Negative (Negative); Mucus,Urine Rare /hpf; Nitrite,Urine Negative (Negative); Protein,Urine 2+ (Negative); RBC,Urine 1 /hpf (0-5); Squamous Epithelial Cell,Urine <1 /hpf (0-4); Urobilinogen,Urine <2.0 mg/dL (<2.0); WBC,Urine 2 /hpf (0-5)
[2021-03-01 16:50] LABS: Creatinine,Urine Random 95.7 mg/dL
[2021-03-01 17:06] LABS: Protein/Creatinine Ratio,Urine 3.292
[2021-03-01 23:55] LABS: Basophils # (A) 0.03 X 10*3/uL (0.00-0.10); Basophils % (A) 0.5 %; Eosinophils # (A) 0.19 X 10*3/uL (0.04-0.35); Eosinophils % (A) 3.3 %; HCT 27.8 % (39.6-50.0); HGB 8.7 g/dL (13.0-17.0); Lymphocytes # (A) 0.89 X 10*3/uL (0.90-5.00); Lymphocytes % (A) 15.3 %; MCH 24.8 pg (27.0-32.0); MCHC 31.3 g/dL (32.0-37.0); MCV 79.2 fL (80.0-97.0); Mean Platelet Volume 9.6 fL (9.5-12.2); Monocytes # (A) 0.61 X 10*3/uL (0.20-1.00); Monocytes % (A) 10.5 %; Neutrophils # (A) 4.06 X 10*3/uL (1.80-7.70); Neutrophils % (A) 69.9 %; Platelet Count 153 X 10*3/uL (140-440); RBC 3.51 X 10*6/uL (4.40-5.60); RDW 16.5 % (11.5-14.5); WBC 5.81 X 10*3/uL (4.50-10.00)
[2021-03-02 20:34] LABS: % Iron Saturation 10.22 (15.00-50.00); African American GFR (CKD) 24.3 (60.0-200.0); Albumin 3.8 g/dL (3.80-4.90); Anion Gap 11.4 mmol/L (4.00-12.00); BUN/Creat Ratio 18.97 Ratio (12.00-20.00); Carbon Dioxide 21.6 mmol/L (21.6-31.8); Ferritin 39.9 ng/mL (22.0-322.0); Magnesium 2.1 mg/dL (1.5-2.4); Phosphorus 4.1 mg/dL (2.4-5.1); Potassium 4.4 mmol/L (3.5-5.5); Uric Acid 10.4 mg/dL (3.7-8.7)
== END | disposition home or self-care (01) ==
LOC: LABWHC1 15:52
PROVIDERS: ATTEND Nurse Practitioner Family
DX: N18.31 Chronic kidney disease, stage 3a (principal); E55.9 Vitamin D deficiency, unspecified; N25.81 Secondary hyperparathyroidism of renal origin; M10.9 Gout, unspecified; N39.0 Urinary tract infection, site not specified; R80.9 Proteinuria, unspecified; D64.9 Anemia, unspecified
CPT/HCPCS: 36415; 80048; 81001; 82040; 82306; 82570; 82728; 83540; 83550; 83735; 83970; 84100; 84156; 84550; 85025

== ENCOUNTER 2021-03-04 19:14 | Emergency (ER) | payer OTHER ==
--- NOTE | 2021-03-04 20:07 | ED ---
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 Patient reports that he just feels that he can't catch his breath. Patient states he just feels like he cannot get enough air. He denies any chest pain or palpitations. Denies any diaphoresis or lightheadedness. Patient reports he's felt short of breath since having COVID but it's been progressively worsening. Patient did have a PET scan done last month which confirmed enlarging lymph nodes in the chest with compressive atelectasis in the left. - Related Data Home Medications Medication Instructions Recorded Confirmed Atorvastatin [Lipitor] 80 mg PO DAILY 04/30/17 11/08/20 Acetaminophen Tab [Tylenol] 500 mg PO Q6H PRN 10/18/20 11/08/20 Aspirin EC [Ecotrin Low Dose] 81 mg PO DAILY 10/18/20 11/08/20 hydrALAZINE HCL [Apresoline] 100 mg PO TID 10/28/20 11/08/20 Previous Rx's Medication Instructions Recorded Apixaban [Eliquis] 5 mg PO BID #74 tab 08/16/18 Ascorbic Acid [Vitamin C] 1,000 mg PO DAILY tab 10/22/20 Cholecalciferol [Vitamin D3 (25 50 mcg PO DAILY tablet 10/22/20 Mcg = 1000 Iu)] Sodium Bicarbonate Tab 1,300 mg PO BID tab 10/22/20 Zinc Sulfate [Orazinc] 220 mg PO DAILY cap 10/22/20 amLODIPine [Norvasc] 5 mg PO DAILY 30 Days #30 tab 10/22/20 Furosemide [Lasix] 40 mg PO BID@0900,1600 #60 tab 11/11/20 Insulin Detemir (Levemir) [Levemir] 45 unit SQ DAILY@0700 #0 syr 11/11/20 Potassium Chloride ER [K-Dur 20] 20 meq PO DAILY #30 tab.er.prt 11/11/20 carvediloL [Coreg*] 12.5 mg PO BID-W/MEALS #60 tab 11/11/20 Allergies Allergy/AdvReac Type Severity Reaction Status Date / Time No Known Allergies Allergy Verified 03/04/21 19:28 Review of Systems ROS Statement: Those systems with pertinent positive or pertinent negative responses have been documented in the HPI. ROS Other: All systems not noted in ROS Statement are negative. Past Medical History Past Medical History: Coronary Artery Disease (CAD), Cancer, Diabetes Mellitus, Eye Disorder, GERD/Reflux, GI Bleed, Hyperlipidemia, Hypertension, Myocardial Infarction (RI), Osteoarthritis (OA), Renal Disease Additional Past Medical History / Comment(s): glaucoma in the left eye, stage III chronic kidney disease, Melanoma on back R ear and abd removed, covid Last Myocardial Infarction Date:: 2015 History of Any Multi-Drug Resistant Organisms: None Reported Past Surgical History: Adenoidectomy, Appendectomy, Heart Catheterization, Heart Catheterization With Stent, Orthopedic Surgery, Tonsillectomy Additional Past Surgical History / Comment(s): tumor from L shoulder, bilateral carpel tunnel, colonoscopy, R knee arthroscopy;CA removed from R ear back & abdomen; cataract L eye, liver biopsy on 08/14/18 Past Anesthesia/Blood Transfusion Reactions: No Reported Reaction Date of Last Stent Placement:: 12/07/15 Past Psychological History: No Psychological Hx Reported Smoking Status: Never smoker Past Alcohol Use History: Occasional Past Drug Use History: None Reported - Past Family History Father Family Medical History: No Reported History Additional Family Medical History / Comment(s): Father was a heavy smoker. He was at age 70. Mother Family Medical History: No Reported History Additional Family Medical History / Comment(s): Mother is alive and is 92 yrs old. General Exam - General Exam Comments Initial Comments: Physical Exam GENERAL: Patient is well-developed and well-nourished. Patient is nontoxic and well- hydrated and is in no distress. HENT: Normocephalic, Atraumatic. EYES: PERRL, EOMI PULMONARY: Unlabored respirations. No audible rales rhonchi or wheezing was noted. Decreased breath sounds left base CARDIOVASCULAR: There is a regular rate and rhythm without any murmurs gallops or rubs. ABDOMEN: Soft and nontender with normal bowel sounds. SKIN: Skin is clear with no lesions or rashes and otherwise unremarkable. : Deferred NEUROLOGIC: Patient is alert and oriented x3. Moving all extremities spontaneously MUSCULOSKELETAL: Normal extremities with adequate strength and full range of motion. No lower extremity swelling or edema. No calf tenderness. PSYCHIATRIC: Normal psychiatric evaluation. Limitations: no limitations Course Vital Signs 03/04/21 03/04/21 19:25 21:50 Temperature 98.5 F 98.4 F Pulse Rate 62 74 Respiratory 22 20 Rate Blood Pressure 154/73 157/74 O2 Sat by Pulse 96 94 L Oximetry Medical Decision Making - Medical Decision Making Patient seen and evaluated history is obtained from patient History and physical exam are concerning for progressively worsening shortness of breath over a number of months in the setting of known metastatic disease PET scan does reveal worsening metastases to the lymph nodes in the lungs with compression X-ray reveals pleural effusion on the left side consistent with the PET scan findings Labs with recurrent anemia Results were discussed with the patient who feels reassured, patient states he just wanted to get checked out he notes that his cancer is causing his symptoms with his family was concerned, patient will follow with his oncologist for treatment of anemia as well as metastatic disease. Patient has undergone palliative radiation with success for metastases to the brain in the past. - Lab Data Result diagrams: 03/04/21 20:33 03/04/21 20:33 Lab Results 03/04/21 03/04/21 03/04/21 Range/Units 20:33 20:33 20:33 WBC 5.5 (3.8-10.6) k/uL RBC 4.03 L (4.30-5.90) m/uL Hgb 10.7 L (13.0-17.5) gm/dL Hct 31.6 L (39.0-53.0) % MCV 78.2 L (80.0-100.0) fL MCH 26.5 (25.0-35.0) pg MCHC 33.9 (31.0-37.0) g/dL RDW 17.1 H (11.5-15.5) % Plt Count 146 L (150-450) k/uL MPV 6.7 Neutrophils % 72 % Lymphocytes % 15 % Monocytes % 7 % Eosinophils % 3 % Basophils % 1 % Neutrophils # 3.9 (1.3-7.7) k/uL Lymphocytes # 0.8 L (1.0-4.8) k/uL Monocytes # 0.4 (0-1.0) k/uL Eosinophils # 0.2 (0-0.7) k/uL Basophils # 0.0 (0-0.2) k/uL Anisocytosis Slight Microcytosis Slight PT 11.5 (9.0-12.0) sec INR 1.1 (<1.2) APTT 25.5 (22.0-30.0) sec Sodium 140 (137-145) mmol/L Potassium 4.8 (3.5-5.1) mmol/L Chloride 111 H (98-107) mmol/L Carbon Dioxide 23 (22-30) mmol/L Anion Gap 6 mmol/L BUN 57 H (9-20) mg/dL Creatinine 2.63 H (0.66-1.25) mg/dL Est GFR (CKD-EPI)AfAm 27 (>60 ml/min/1.73 sqM) Est GFR (CKD-EPI)NonAf 24 (>60 ml/min/1.73 sqM) Glucose 182 H (74-99) mg/dL Calcium 8.9 (8.4-10.2) mg/dL Magnesium 2.3 (1.6-2.3) mg/dL Total Bilirubin 0.4 (0.2-1.3) mg/dL AST 18 (17-59) U/L ALT 22 (4-49) U/L Alkaline Phosphatase 111 (38-126) U/L Troponin I (0.000-0.034) ng/mL NT-Pro-B Natriuret Pep pg/mL Total Protein 6.2 L (6.3-8.2) g/dL Albumin 3.7 (3.5-5.0) g/dL 03/04/21 03/04/21 Range/Units 20:33 20:33 WBC (3.8-10.6) k/uL RBC (4.30-5.90) m/uL Hgb (13.0-17.5) gm/dL Hct (39.0-53.0) % MCV (80.0-100.0) fL MCH (25.0-35.0) pg MCHC (31.0-37.0) g/dL RDW (11.5-15.5) % Plt Count (150-450) k/uL MPV Neutrophils % % Lymphocytes % % Monocytes % % Eosinophils % % Basophils % % Neutrophils # (1.3-7.7) k/uL Lymphocytes # (1.0-4.8) k/uL Monocytes # (0-1.0) k/uL Eosinophils # (0-0.7) k/uL Basophils # (0-0.2) k/uL Anisocytosis Microcytosis PT (9.0-12.0) sec INR (<1.2) APTT (22.0-30.0) sec Sodium (137-145) mmol/L Potassium (3.5-5.1) mmol/L Chloride (98-107) mmol/L Carbon Dioxide (22-30) mmol/L Anion Gap mmol/L BUN (9-20) mg/dL Creatinine (0.66-1.25) mg/dL Est GFR (CKD-EPI)AfAm (>60 ml/min/1.73 sqM) Est GFR (CKD-EPI)NonAf (>60 ml/min/1.73 sqM) Glucose (74-99) mg/dL Calcium (8.4-10.2) mg/dL Magnesium (1.6-2.3) mg/dL Total Bilirubin (0.2-1.3) mg/dL AST (17-59) U/L ALT (4-49) U/L Alkaline Phosphatase (38-126) U/L Troponin I <0.012 (0.000-0.034) ng/mL NT-Pro-B Natriuret Pep 4430 pg/mL Total Protein (6.3-8.2) g/dL Albumin (3.5-5.0) g/dL Disposition Clinical Impression: Metastatic melanoma to lung Disposition: HOME SELF-CARE Condition: Stable Additional Instructions: Contact your Oncologist to discuss symptoms Is patient prescribed a controlled substance at d/c from ED?: No Referrals: Tremaine Pereira MD [Primary Care Provider] - 1-2 days
[2021-03-04 20:47] LABS: Anisocytosis Slight; Basophils % (A) 1 %; Eosinophils # (A) 0.2 k/uL (0-0.7); Eosinophils % (A) 3 %; HCT 31.6 % (39.0-53.0); HGB 10.7 gm/dL (13.0-17.5); Lymphocytes # (A) 0.8 k/uL (1.0-4.8); Lymphocytes % (A) 15 %; MCH 26.5 pg (25.0-35.0); MCHC 33.9 g/dL (31.0-37.0); MCV 78.2 fL (80.0-100.0); Mean Platelet Volume 6.7; Microcytosis Slight; Monocytes # (A) 0.4 k/uL (0-1.0); Monocytes % (A) 7 %; Neutrophils # (A) 3.9 k/uL (1.3-7.7); Neutrophils % (A) 72 %; Platelet Count 146 k/uL (150-450); RBC 4.03 m/uL (4.30-5.90); RDW 17.1 % (11.5-15.5); WBC 5.5 k/uL (3.8-10.6)
[2021-03-04 21:13] LABS: INR 1.1 (<1.2); Partial Thromboplastin Time 25.5 sec (22.0-30.0); Prothrombin Time 11.5 sec (9.0-12.0)
[2021-03-04 21:15] LABS: Albumin 3.7 g/dL (3.5-5.0); Calcium 8.9 mg/dL (8.4-10.2); Magnesium 2.3 mg/dL (1.6-2.3); Potassium 4.8 mmol/L (3.5-5.1); Total Bilirubin 0.4 mg/dL (0.2-1.3); Total Protein 6.2 g/dL (6.3-8.2)
--- NOTE | 2021-03-04 21:19 | XR ---
EXAMINATION TYPE: XR chest 2V DATE OF EXAM: 03/04/2021 COMPARISON: 11/08/2020 HISTORY: Chest pain TECHNIQUE: FINDINGS: There is some airspace consolidation and pleural fluid in the left lower lobe. There is no definite heart failure. There is minimal infiltrate right lower lobe. There are chest leads. There ar e sternal wires. IMPRESSION: Increasing consolidation and pleural fluid in the left lower lobe compared to old exam. T here is partial clearing of right lower lobe infiltrate compared to old exam.
[2021-03-04 21:52] VITALS: BP 157/74; PULSE 74; RESP 20; TEMP 98.4
== END 2021-03-04 21:50 | disposition home or self-care (01) ==
LOC: EC 19:14 → SUPCPDRO 19:14 → EC 21:50
DX: C78.00 Secondary malignant neoplasm of unspecified lung (principal); E11.22 Type 2 diabetes mellitus with diabetic chronic kidney disease; I12.9 Hypertensive chronic kidney disease with stage 1 through stage 4 chronic kidney disease, or unspecified chronic kidney disease; N18.30 Chronic kidney disease, stage 3 unspecified; I25.10 Atherosclerotic heart disease of native coronary artery without angina pectoris; M19.90 Unspecified osteoarthritis, unspecified site; E87.5 Hyperkalemia; I25.2 Old myocardial infarction; Z79.82 Long term (current) use of aspirin; Z86.12 Personal history of poliomyelitis; Z79.01 Long term (current) use of anticoagulants; Z79.4 Long term (current) use of insulin; Z79.899 Other long term (current) drug therapy
CPT/HCPCS: 36415; 71046; 80053; 83735; 83880; 84484; 85025; 85610; 85730; 93005; 99284

== ENCOUNTER → 2021-05-16 | Outpatient (CLI) | payer OTHER ==
[2021-05-16 21:31] LABS: African American GFR (CKD) 27.7 (60.0-200.0); Anion Gap 7.9 mmol/L (4.00-12.00); BUN/Creat Ratio 19.23 Ratio (12.00-20.00); Carbon Dioxide 24.1 mmol/L (21.6-31.8); Non-African American GFR(CKD) 23.9 (60.0-200.0); Potassium 4.7 mmol/L (3.5-5.5)
== END | disposition home or self-care (01) ==
LOC: LABWHC1 11:38
PROVIDERS: ATTEND Internal Medicine Critical Care Medicine
DX: J90 Pleural effusion, not elsewhere classified (principal)
CPT/HCPCS: 36415; 80048

== ENCOUNTER → 2021-07-19 | Outpatient (CLI) | payer OTHER ==
[2021-07-19 12:04] LABS: Appearance,Urine Clear (Clear); Bilirubin,Urine Negative (Negative); Blood,Urine Negative (Negative); Color,Urine Light Yellow; Glucose,Urine (UA) 3+ (Negative); Ketones,Urine Negative (Negative); Leukocyte Esterase,Urine Negative (Negative); Mucus,Urine Rare /hpf; Nitrite,Urine Negative (Negative); PH, Urine 5.5 (5.0-8.0); Protein,Urine 2+ (Negative); RBC,Urine <1 /hpf (0-5); Specific Gravity,Urine 1.012 (1.001-1.035); Squamous Epithelial Cell,Urine <1 /hpf (0-4); Urobilinogen,Urine <2.0 mg/dL (<2.0); WBC,Urine 1 /hpf (0-5)
[2021-07-19 12:10] LABS: Creatinine,Urine Random 70.2 mg/dL
[2021-07-19 12:30] LABS: Protein/Creatinine Ratio,Urine 7.051
[2021-07-19 18:52] LABS: Basophils # (A) 0.04 X 10*3/uL (0.00-0.10); Basophils % (A) 0.6 %; Eosinophils # (A) 0.33 X 10*3/uL (0.04-0.35); HGB 11.1 g/dL (13.0-17.0); Lymphocytes # (A) 0.63 X 10*3/uL (0.90-5.00); Lymphocytes % (A) 9.5 %; MCH 27.5 pg (27.0-32.0); MCHC 33.6 g/dL (32.0-37.0); MCV 81.7 fL (80.0-97.0); Mean Platelet Volume 10.1 fL (9.5-12.2); Monocytes # (A) 0.67 X 10*3/uL (0.20-1.00); Monocytes % (A) 10.1 %; Neutrophils # (A) 4.89 X 10*3/uL (1.80-7.70); Platelet Count 187 X 10*3/uL (140-440); RBC 4.04 X 10*6/uL (4.40-5.60); RDW 15.6 % (11.5-14.5); WBC 6.61 X 10*3/uL (4.50-10.00)
[2021-07-20 01:07] LABS: Phosphorus 4.5 mg/dL (2.4-5.1)
[2021-07-20 01:08] LABS: % Iron Saturation 26.29 (15.00-50.00); African American GFR (CKD) 28.1 (60.0-200.0); Albumin 3.2 g/dL (3.8-4.9); Anion Gap 13.9 mmol/L (4.00-12.00); BUN/Creat Ratio 33.23 Ratio (12.00-20.00); Blood Urea Nitrogen 85.4 mg/dL (9.0-27.0); Calcium 8.6 mg/dL (8.7-10.3); Magnesium 2.2 mg/dL (1.5-2.4); Non-African American GFR(CKD) 24.3 (60.0-200.0); Potassium 4.6 mmol/L (3.5-5.5); Uric Acid 6.8 mg/dL (3.7-8.7)
== END | disposition home or self-care (01) ==
LOC: LABWHC1 10:19
PROVIDERS: ATTEND Nurse Practitioner Family
DX: D64.9 Anemia, unspecified (principal); N18.31 Chronic kidney disease, stage 3a; E55.9 Vitamin D deficiency, unspecified; N25.81 Secondary hyperparathyroidism of renal origin; M10.9 Gout, unspecified; N39.0 Urinary tract infection, site not specified; R80.9 Proteinuria, unspecified
CPT/HCPCS: 36415; 80048; 81001; 82040; 82306; 82570; 82728; 83540; 83550; 83735; 83970; 84100; 84156; 84550; 85025

== ENCOUNTER → 2021-08-16 | Outpatient (CLI) | payer OTHER ==
[2021-08-16 17:50] LABS: ALT 12 U/L (10-49); AST 9 U/L (14-35); African American GFR (CKD) 26.7 (60.0-200.0); Albumin 3.1 g/dL (3.8-4.9); Albumin/Globulin Ratio 1.34 (1.60-3.17); Alkaline Phosphatase 141 U/L (41-126); BUN/Creat Ratio 30.34 Ratio (12.00-20.00); Blood Urea Nitrogen 81.3 mg/dL (9.0-27.0); Calcium 8.2 mg/dL (8.7-10.3); Carbon Dioxide 19.3 mmol/L (21.6-31.8); Chloride 107 mmol/L (96-109); Globulin 2.3 g/dL (1.6-3.3); Glucose 218 mg/dL (70-110); LDL Cholesterol,Calculated 67.7 mg/dL (0.0-131.0); Non-African American GFR(CKD) 23.1 (60.0-200.0); Sodium 141 mmol/L (135-145); Total Protein 5.4 g/dL (6.2-8.2)
== END | disposition home or self-care (01) ==
LOC: LABWHC1 09:54
PROVIDERS: ATTEND Internal Medicine Interventional Cardiology
DX: E78.2 Mixed hyperlipidemia (principal)
CPT/HCPCS: 36415; 80053; 80061

== ENCOUNTER 2021-08-26 10:52 | Inpatient (IN) | payer OTHER ==
[2021-08-26 11:01] LABS: Glucose,Whole Blood 59 mg/dL (75-99)
[2021-08-26] MEDS ORDERED: DEXTROSE 50% SYRINGE 50 ML IVP STA (11:09)
--- NOTE | 2021-08-26 11:24 | ED ---
General Adult HPI - General Chief complaint: Altered Mental Status Stated complaint: AMS Time Seen by Provider: 08/26/21 11:08 Source: family, EMS, RN notes reviewed Mode of arrival: EMS Limitations: no limitations - History of Present Illness Initial comments: Patient is a pleasant 71-year-old male presenting to the emergency department for change in mental status. EMS found blood sugar in the 30s and gave glucose without much improvement. Patient arrives altered and provides no history. Son arrives and provides additional history. Patient had a similar episode just 2 days ago. Patient is on immunotherapy secondary to malignant melanoma with metastasis to the lung and brain. No recent fevers or other illness. Patient otherwise acts independently. - Related Data Home Medications Medication Instructions Recorded Confirmed Atorvastatin [Lipitor] 80 mg PO DAILY 04/30/17 08/26/21 Aspirin EC [Ecotrin Low Dose] 81 mg PO DAILY 10/18/20 08/26/21 Ergocalciferol [Vitamin D2 (1250 1,250 mcg PO HERBERT 03/16/21 08/26/21 Mcg = 08591 Iu)] Furosemide [Lasix] 40 mg PO Q48H 08/26/21 08/26/21 Insulin Detemir [Levemir Flextouch 35 units SQ HS 08/26/21 08/26/21 Pen] amLODIPine [Norvasc] 10 mg PO DAILY 08/26/21 08/26/21 calcitrioL [Calcitriol] 0.25 mcg PO HERBERT 08/26/21 08/26/21 carvediloL [Coreg*] 12.5 mg PO BID 08/26/21 08/26/21 hydrALAZINE HCL [Apresoline] 25 mg PO BID 08/26/21 08/26/21 Allergies Allergy/AdvReac Type Severity Reaction Status Date / Time No Known Allergies Allergy Verified 08/26/21 14:19 Review of Systems ROS Statement: Those systems with pertinent positive or pertinent negative responses have been documented in the HPI. ROS Other: All systems not noted in ROS Statement are negative. Limitations: ROS unobtainable due to patients medical condition Past Medical History Past Medical History: Coronary Artery Disease (CAD), Cancer, Diabetes Mellitus, Eye Disorder, GERD/Reflux, GI Bleed, Hyperlipidemia, Hypertension, Myocardial Infarction ([place]), Osteoarthritis (OA), Renal Disease Additional Past Medical History / Comment(s): glaucoma in the left eye, stage III chronic kidney disease, Melanoma on back R ear and abd removed, covid Last Myocardial Infarction Date:: 2015 History of Any Multi-Drug Resistant Organisms: None Reported Past Surgical History: Adenoidectomy, Appendectomy, Heart Catheterization, Heart Catheterization With Stent, Orthopedic Surgery, Tonsillectomy Additional Past Surgical History / Comment(s): tumor from L shoulder, bilateral carpel tunnel, colonoscopy, R knee arthroscopy;CA removed from R ear back & abdomen; cataract L eye, liver biopsy on 08/14/18 Past Anesthesia/Blood Transfusion Reactions: No Reported Reaction Date of Last Stent Placement:: 12/07/15 Past Psychological History: No Psychological Hx Reported Smoking Status: Never smoker - Past Family History Father Family Medical History: No Reported History Additional Family Medical History / Comment(s): Father was a heavy smoker. He was at age 70. Mother Family Medical History: No Reported History Additional Family Medical History / Comment(s): Mother is alive and is 92 yrs old. General Exam Limitations: no limitations General appearance: alert, in no apparent distress, other (Mild tremor) Head exam: Present: normocephalic Eye exam: Present: normal appearance, PERRL ENT exam: Present: other (Tongue abrasion) Neck exam: Present: normal inspection Respiratory exam: Present: normal lung sounds bilaterally, other (Drain tube left chest) Cardiovascular Exam: Present: regular rate, normal rhythm GI/Abdominal exam: Present: soft. Absent: tenderness Extremities exam: Present: normal inspection Neurological exam: Present: alert, other (Nonverbal. Follow some simple commands) Expanded Motor strength exam: RUE: 5, LUE: 5, RLE: 5, LLE: 5 Eye Response: (4) open spontaneously Motor Response: (5) localizes to pain Verbal Response: (1) no verbal response Psychiatric exam: Present: flat affect Skin exam: Present: normal color Course Vital Signs 08/26/21 08/26/21 08/26/21 10:53 12:08 12:57 Temperature 93.1 F L Pulse Rate 68 75 Respiratory 18 18 Rate Blood Pressure 150/68 147/73 O2 Sat by Pulse 93 L 94 L Oximetry 08/26/21 08/26/21 14:00 14:30 Temperature Pulse Rate 69 73 Respiratory 20 20 Rate Blood Pressure 144/69 148/72 O2 Sat by Pulse 90 L 88 L Oximetry - Reevaluation(s) Reevaluation #1: 08/26/21 15:10 There is potential for sepsis. Blood culture and lactic acid have been ordered. IV antibiotics will be ordered. Patient will not receive fluid bolus of 30 mL/kg secondary to concern for renal disease and heart failure. No fluid bolus will be provided at this time pending CT results. EKG Findings - EKG Comments: EKG Findings:: Artifact present. Narrow complex irregular rhythm with a rate of 68. QRS 88. QT 428. QTC 45. Normal axis. Q waves V1 and V2. There is some appearance of Q waves. Nonspecific T waves. Medical Decision Making - Medical Decision Making Patient reevaluated and alert and appropriate. Patient is oriented. Patient and family updated on results and plan. Case discussed Dr. Tariq, who will admit covering for Dr. Pereira. She agrees with computed tomography scan of the chest. She would like cardiology and nephrology consult as well as Lasix IV 40 twice a day. Patient has mixed presentation. There is concern for potential pneumonia with hypothermia and hypoglycemia. Also concern for possible CHF based off x-ray findings and BNP. - Lab Data Result diagrams: 08/26/21 11:46 08/26/21 11:46 Lab Results 08/26/21 08/26/21 08/26/21 Range/Units 11:00 11:16 11:45 WBC (3.8-10.6) k/uL RBC (4.30-5.90) m/uL Hgb (13.0-17.5) gm/dL Hct (39.0-53.0) % MCV (80.0-100.0) fL MCH (25.0-35.0) pg MCHC (31.0-37.0) g/dL RDW (11.5-15.5) % Plt Count (150-450) k/uL MPV Neutrophils % % Lymphocytes % % Monocytes % % Eosinophils % % Basophils % % Neutrophils # (1.3-7.7) k/uL Lymphocytes # (1.0-4.8) k/uL Monocytes # (0-1.0) k/uL Eosinophils # (0-0.7) k/uL Basophils # (0-0.2) k/uL Hyperchromasia Poikilocytosis PT (9.0-12.0) sec INR (<1.2) APTT (22.0-30.0) sec Sodium (137-145) mmol/L Potassium (3.5-5.1) mmol/L Chloride (98-107) mmol/L Carbon Dioxide (22-30) mmol/L Anion Gap mmol/L BUN (9-20) mg/dL Creatinine (0.66-1.25) mg/dL Est GFR (CKD-EPI)AfAm (>60 ml/min/1.73 sqM) Est GFR (CKD-EPI)NonAf (>60 ml/min/1.73 sqM) Glucose (74-99) mg/dL POC Glucose (mg/dL) 59 L 169 H 106 H (75-99) mg/dL POC Glu Hooking Machine Operator ID Benito Gannon Brittany Powers, Lauren Plasma Lactic Acid Young (0.7-2.0) mmol/L Calcium (8.4-10.2) mg/dL Total Bilirubin (0.2-1.3) mg/dL AST (17-59) U/L ALT (4-49) U/L Alkaline Phosphatase (38-126) U/L NT-Pro-B Natriuret Pep pg/mL Total Protein (6.3-8.2) g/dL Albumin (3.5-5.0) g/dL Urine Color Urine Appearance (Clear) Urine pH (5.0-8.0) Ur Specific [place] (1.001-1.035) Urine Protein (Negative) Urine Glucose (UA) (Negative) Urine Ketones (Negative) Urine Blood (Negative) Urine Nitrite (Negative) Urine Bilirubin (Negative) Urine Urobilinogen (<2.0) mg/dL Ur Leukocyte Esterase (Negative) Urine RBC (0-5) /hpf Urine WBC (0-5) /hpf Ur Squamous Epith Cells (0-4) /hpf Amorphous Sediment (None) /hpf Urine Bacteria (None) /hpf Urine Mucus (None) /hpf Coronavirus (PCR) (Not Detectd) 08/26/21 08/26/21 08/26/21 Range/Units 11:46 11:46 11:46 WBC 11.0 H (3.8-10.6) k/uL RBC 3.44 L (4.30-5.90) m/uL Hgb 9.9 L (13.0-17.5) gm/dL Hct 27.5 L (39.0-53.0) % MCV 80.0 (80.0-100.0) fL MCH 28.9 (25.0-35.0) pg MCHC 36.2 (31.0-37.0) g/dL RDW 14.7 (11.5-15.5) % Plt Count 225 (150-450) k/uL MPV 7.0 Neutrophils % 91 % Lymphocytes % 3 % Monocytes % 5 % Eosinophils % 0 % Basophils % 0 % Neutrophils # 10.0 H (1.3-7.7) k/uL Lymphocytes # 0.4 L (1.0-4.8) k/uL Monocytes # 0.5 (0-1.0) k/uL Eosinophils # 0.0 (0-0.7) k/uL Basophils # 0.0 (0-0.2) k/uL Hyperchromasia Slight Poikilocytosis Slight PT 11.1 (9.0-12.0) sec INR 1.0 (<1.2) APTT 25.5 (22.0-30.0) sec Sodium 139 (137-145) mmol/L Potassium 3.4 L (3.5-5.1) mmol/L Chloride 110 H (98-107) mmol/L Carbon Dioxide 18 L (22-30) mmol/L Anion Gap 11 mmol/L BUN 109 H* (9-20) mg/dL Creatinine 3.59 H (0.66-1.25) mg/dL Est GFR (CKD-EPI)AfAm 19 (>60 ml/min/1.73 sqM) Est GFR (CKD-EPI)NonAf 16 (>60 ml/min/1.73 sqM) Glucose 117 H (74-99) mg/dL POC Glucose (mg/dL) (75-99) mg/dL POC Glu Hooking Machine Operator ID Plasma Lactic Acid Young (0.7-2.0) mmol/L Calcium 8.1 L (8.4-10.2) mg/dL Total Bilirubin 0.9 (0.2-1.3) mg/dL AST 31 (17-59) U/L ALT 19 (4-49) U/L Alkaline Phosphatase 122 (38-126) U/L NT-Pro-B Natriuret Pep pg/mL Total Protein 5.9 L (6.3-8.2) g/dL Albumin 2.9 L (3.5-5.0) g/dL Urine Color Urine Appearance (Clear) Urine pH (5.0-8.0) Ur Specific [place] (1.001-1.035) Urine Protein (Negative) Urine Glucose (UA) (Negative) Urine Ketones (Negative) Urine Blood (Negative) Urine Nitrite (Negative) Urine Bilirubin (Negative) Urine Urobilinogen (<2.0) mg/dL Ur Leukocyte Esterase (Negative) Urine RBC (0-5) /hpf Urine WBC (0-5) /hpf Ur Squamous Epith Cells (0-4) /hpf Amorphous Sediment (None) /hpf Urine Bacteria (None) /hpf Urine Mucus (None) /hpf Coronavirus (PCR) (Not Detectd) 08/26/21 08/26/21 08/26/21 Range/Units 11:46 11:46 11:46 WBC (3.8-10.6) k/uL RBC (4.30-5.90) m/uL Hgb (13.0-17.5) gm/dL Hct (39.0-53.0) % MCV (80.0-100.0) fL MCH (25.0-35.0) pg MCHC (31.0-37.0) g/dL RDW (11.5-15.5) % Plt Count (150-450) k/uL MPV Neutrophils % % Lymphocytes % % Monocytes % % Eosinophils % % Basophils % % Neutrophils # (1.3-7.7) k/uL Lymphocytes # (1.0-4.8) k/uL Monocytes # (0-1.0) k/uL Eosinophils # (0-0.7) k/uL Basophils # (0-0.2) k/uL Hyperchromasia Poikilocytosis PT (9.0-12.0) sec INR (<1.2) APTT (22.0-30.0) sec Sodium (137-145) mmol/L Potassium (3.5-5.1) mmol/L Chloride (98-107) mmol/L Carbon Dioxide (22-30) mmol/L Anion Gap mmol/L BUN (9-20) mg/dL Creatinine (0.66-1.25) mg/dL Est GFR (CKD-EPI)AfAm (>60 ml/min/1.73 sqM) Est GFR (CKD-EPI)NonAf (>60 ml/min/1.73 sqM) Glucose (74-99) mg/dL POC Glucose (mg/dL) (75-99) mg/dL POC Glu Hooking Machine Operator ID Plasma Lactic Acid Young 0.7 (0.7-2.0) mmol/L Calcium (8.4-10.2) mg/dL Total Bilirubin (0.2-1.3) mg/dL AST (17-59) U/L ALT (4-49) U/L Alkaline Phosphatase (38-126) U/L NT-Pro-B Natriuret Pep 07648 pg/mL Total Protein (6.3-8.2) g/dL Albumin (3.5-5.0) g/dL Urine Color Urine Appearance (Clear) Urine pH (5.0-8.0) Ur Specific [place] (1.001-1.035) Urine Protein (Negative) Urine Glucose (UA) (Negative) Urine Ketones (Negative) Urine Blood (Negative) Urine Nitrite (Negative) Urine Bilirubin (Negative) Urine Urobilinogen (<2.0) mg/dL Ur Leukocyte Esterase (Negative) Urine RBC (0-5) /hpf Urine WBC (0-5) /hpf Ur Squamous Epith Cells (0-4) /hpf Amorphous Sediment (None) /hpf Urine Bacteria (None) /hpf Urine Mucus (None) /hpf Coronavirus (PCR) Not Detected (Not Detectd) 08/26/21 08/26/21 08/26/21 Range/Units 12:25 12:55 13:18 WBC (3.8-10.6) k/uL RBC (4.30-5.90) m/uL Hgb (13.0-17.5) gm/dL Hct (39.0-53.0) % MCV (80.0-100.0) fL MCH (25.0-35.0) pg MCHC (31.0-37.0) g/dL RDW (11.5-15.5) % Plt Count (150-450) k/uL MPV Neutrophils % % Lymphocytes % % Monocytes % % Eosinophils % % Basophils % % Neutrophils # (1.3-7.7) k/uL Lymphocytes # (1.0-4.8) k/uL Monocytes # (0-1.0) k/uL Eosinophils # (0-0.7) k/uL Basophils # (0-0.2) k/uL Hyperchromasia Poikilocytosis PT (9.0-12.0) sec INR (<1.2) APTT (22.0-30.0) sec Sodium (137-145) mmol/L Potassium (3.5-5.1) mmol/L Chloride (98-107) mmol/L Carbon Dioxide (22-30) mmol/L Anion Gap mmol/L BUN (9-20) mg/dL Creatinine (0.66-1.25) mg/dL Est GFR (CKD-EPI)AfAm (>60 ml/min/1.73 sqM) Est GFR (CKD-EPI)NonAf (>60 ml/min/1.73 sqM) Glucose (74-99) mg/dL POC Glucose (mg/dL) 79 81 (75-99) mg/dL POC Glu Hooking Machine Operator ID George, Anabel George, Anabel Plasma Lactic Acid Young (0.7-2.0) mmol/L Calcium (8.4-10.2) mg/dL Total Bilirubin (0.2-1.3) mg/dL AST (17-59) U/L ALT (4-49) U/L Alkaline Phosphatase (38-126) U/L NT-Pro-B Natriuret Pep pg/mL Total Protein (6.3-8.2) g/dL Albumin (3.5-5.0) g/dL Urine Color Yellow Urine Appearance Cloudy (Clear) Urine pH 5.5 (5.0-8.0) Ur Specific [place] 1.013 (1.001-1.035) Urine Protein 2+ H (Negative) Urine Glucose (UA) Negative (Negative) Urine Ketones Negative (Negative) Urine Blood Small H (Negative) Urine Nitrite Negative (Negative) Urine Bilirubin Negative (Negative) Urine Urobilinogen <2.0 (<2.0) mg/dL Ur Leukocyte Esterase Negative (Negative) Urine RBC 5 (0-5) /hpf Urine WBC 4 (0-5) /hpf Ur Squamous Epith Cells <1 (0-4) /hpf Amorphous Sediment Few H (None) /hpf Urine Bacteria Rare H (None) /hpf Urine Mucus Rare H (None) /hpf Coronavirus (PCR) (Not Detectd) 08/26/21 08/26/21 Range/Units 13:42 14:29 WBC (3.8-10.6) k/uL RBC (4.30-5.90) m/uL Hgb (13.0-17.5) gm/dL Hct (39.0-53.0) % MCV (80.0-100.0) fL MCH (25.0-35.0) pg MCHC (31.0-37.0) g/dL RDW (11.5-15.5) % Plt Count (150-450) k/uL MPV Neutrophils % % Lymphocytes % % Monocytes % % Eosinophils % % Basophils % % Neutrophils # (1.3-7.7) k/uL Lymphocytes # (1.0-4.8) k/uL Monocytes # (0-1.0) k/uL Eosinophils # (0-0.7) k/uL Basophils # (0-0.2) k/uL Hyperchromasia Poikilocytosis PT (9.0-12.0) sec INR (<1.2) APTT (22.0-30.0) sec Sodium (137-145) mmol/L Potassium (3.5-5.1) mmol/L Chloride (98-107) mmol/L Carbon Dioxide (22-30) mmol/L Anion Gap mmol/L BUN (9-20) mg/dL Creatinine (0.66-1.25) mg/dL Est GFR (CKD-EPI)AfAm (>60 ml/min/1.73 sqM) Est GFR (CKD-EPI)NonAf (>60 ml/min/1.73 sqM) Glucose (74-99) mg/dL POC Glucose (mg/dL) 89 79 (75-99) mg/dL POC Glu Hooking Machine Operator ID George, Anabel George, Anabel Plasma Lactic Acid Young (0.7-2.0) mmol/L Calcium (8.4-10.2) mg/dL Total Bilirubin (0.2-1.3) mg/dL AST (17-59) U/L ALT (4-49) U/L Alkaline Phosphatase (38-126) U/L NT-Pro-B Natriuret Pep pg/mL Total Protein (6.3-8.2) g/dL Albumin (3.5-5.0) g/dL Urine Color Urine Appearance (Clear) Urine pH (5.0-8.0) Ur Specific [place] (1.001-1.035) Urine Protein (Negative) Urine Glucose (UA) (Negative) Urine Ketones (Negative) Urine Blood (Negative) Urine Nitrite (Negative) Urine Bilirubin (Negative) Urine Urobilinogen (<2.0) mg/dL Ur Leukocyte Esterase (Negative) Urine RBC (0-5) /hpf Urine WBC (0-5) /hpf Ur Squamous Epith Cells (0-4) /hpf Amorphous Sediment (None) /hpf Urine Bacteria (None) /hpf Urine Mucus (None) /hpf Coronavirus (PCR) (Not Detectd) - Radiology Data Radiology results: report reviewed (Computed tomography scan of the brain shows no hemorrhage or shift. Mild atrophy.), image reviewed (Chest x-ray shows interstitial edema versus infiltrate. Cardiomegaly with left effusion improved.) Disposition Clinical Impression: Hypoglycemia, Hypothermia, Metastatic melanoma, Hypoxia Disposition: ADMITTED IP TO THIS HOSP Condition: Serious Is patient prescribed a controlled substance at d/c from ED?: No Referrals: Tremaine Pereira MD [Primary Care Provider] - 1-2 days Decision Time: 15:09
[2021-08-26 11:29] LABS: Glucose,Whole Blood 169 mg/dL (75-99)
[2021-08-26 11:46] LABS: Glucose,Whole Blood 106 mg/dL (75-99)
[2021-08-26 11:54] LABS: Basophils % (A) 0 %; Eosinophils % (A) 0 %; HCT 27.5 % (39.0-53.0); HGB 9.9 gm/dL (13.0-17.5); Hyperchromasia Slight; Lymphocytes # (A) 0.4 k/uL (1.0-4.8); Lymphocytes % (A) 3 %; MCH 28.9 pg (25.0-35.0); MCHC 36.2 g/dL (31.0-37.0); Monocytes # (A) 0.5 k/uL (0-1.0); Monocytes % (A) 5 %; Neutrophils % (A) 91 %; Platelet Count 225 k/uL (150-450); Poikilocytosis Slight; RBC 3.44 m/uL (4.30-5.90); RDW 14.7 % (11.5-15.5)
[2021-08-26 12:05] LABS: Albumin 2.9 g/dL (3.5-5.0); Calcium 8.1 mg/dL (8.4-10.2); Partial Thromboplastin Time 25.5 sec (22.0-30.0); Potassium 3.4 mmol/L (3.5-5.1); Prothrombin Time 11.1 sec (9.0-12.0); Total Bilirubin 0.9 mg/dL (0.2-1.3); Total Protein 5.9 g/dL (6.3-8.2)
--- NOTE | 2021-08-26 12:31 | XR ---
EXAMINATION TYPE: XR chest 2V DATE OF EXAM: 08/26/2021 COMPARISON: Chest x-ray March 04, 2021 HISTORY: Weakness. TECHNIQUE: Frontal and lateral views of the chest are obtained. FINDINGS: Mild cardiomegaly with overlying sternal wires redemonstrated. Persistent right mid lung a nd diffuse left lung opacities. Small left pleural effusion improved from prior. The osseous struct ures are intact. IMPRESSION: Cardiomegaly with small left pleural effusion improved from prior. Suspect mild to moder ate interstitial edema. Correlate for CHF exacerbation. Areas of underlying acute infiltrate not excl uded.
[2021-08-26 12:56] LABS: Glucose,Whole Blood 79 mg/dL (75-99)
--- NOTE | 2021-08-26 13:09 | CT ---
EXAMINATION TYPE: CT brain wo con DATE OF EXAM: 08/26/2021 HISTORY: Altered mental status CT DLP: 1056.4 mGycm. Automated Exposure Control for Dose Reduction was Utilized. TECHNIQUE: CT scan of the head is performed without contrast. COMPARISON: CT brain October 18, 2020 FINDINGS: There is no acute intracranial hemorrhage or midline shift identified. There is mild to m oderate diffuse ventricular and sulcal prominence consistent with diffuse age-related cerebral atroph y. There is mild to moderate low-attenuation in the periventricular white matter consistent with chr onic small vessel ischemic change. The globes are intact and the visualized sinuses are clear. IMPRESSION: No acute intracranial hemorrhage or midline shift. There is mild to moderate diffuse ag e-related cerebral atrophy and chronic small vessel ischemic change redemonstrated. No significant c hange from prior CT.
[2021-08-26 13:21] LABS: Glucose,Whole Blood 81 mg/dL (75-99)
[2021-08-26 13:23] LABS: Amorphous Sediment,Urine Few /hpf; Appearance,Urine Cloudy (Clear); Bacteria,Urine Rare /hpf; Bilirubin,Urine Negative (Negative); Blood,Urine Small (Negative); Color,Urine Yellow; Glucose,Urine (UA) Negative (Negative); Ketones,Urine Negative (Negative); Leukocyte Esterase,Urine Negative (Negative); Mucus,Urine Rare /hpf; Nitrite,Urine Negative (Negative); PH, Urine 5.5 (5.0-8.0); Protein,Urine 2+ (Negative); RBC,Urine 5 /hpf (0-5); Specific Gravity,Urine 1.013 (1.001-1.035); Squamous Epithelial Cell,Urine <1 /hpf (0-4); Urobilinogen,Urine <2.0 mg/dL (<2.0); WBC,Urine 4 /hpf (0-5)
[2021-08-26 13:43] LABS: Glucose,Whole Blood 89 mg/dL (75-99)
[2021-08-26 14:41] LABS: Glucose,Whole Blood 79 mg/dL (75-99)
[2021-08-26] MEDS ORDERED: ASPIRIN 325 MG TAB PO STA (15:10)
[2021-08-26] MEDS ORDERED: PNEUMONIA PROTOCOL UTILIZED 1 EACH MISC PO PRN (15:10)
[2021-08-26] MEDS ORDERED: PIPERACILLIN-TAZOBACTAM 3.375 GM in SODIUM CHLORIDE 0.9% 100 ML IVPB STA (15:10)
[2021-08-26] MEDS ORDERED: AZITHROMYCIN 500 MG in SODIUM CHLORIDE 0.9% 250 ML IVPB STA (15:10)
[2021-08-26] MEDS: FUROSEMIDE 10 MG/ML 4 ML VIAL IV SCH (15:24)
[2021-08-26 16:05] LABS: Glucose,Whole Blood 68 mg/dL (75-99)
[2021-08-26 16:26] LABS: Glucose,Whole Blood 85 mg/dL (75-99)
--- NOTE | 2021-08-26 16:32 | CT ---
EXAMINATION TYPE: CT chest wo con DATE OF EXAM: 08/26/2021 COMPARISON: 10/18/2020 HISTORY: hypoxia CT DLP: 539.1 mGycm Automated exposure control for dose reduction was used. Images obtained from the thoracic inlet to the diaphragm without contrast. There are moderate bilateral pleural effusions. There is airspace consolidation and atelectasis in smitha th lower lobes. Heart is enlarged. There is no pericardial effusion. There is coronary artery calcifi cation. Thoracic aorta shows no evidence of aneurysm. The ascending aorta measures 3.7 cm. There are multiple mediastinal enlarged lymph nodes that measure up to 1.8 cm. The thoracic spine is intact. There is no compression fracture. Sternum is intact. There are sternal wires. There are calcified gallstones. IMPRESSION: Bilateral pleural effusions with basilar pulmonary airspace infiltrate and atelectasis that is signif icantly increased compared to old exam. Cardiomegaly. Heart appears increased compared to old exam. T here is mediastinal adenopathy similar to old exam.
[2021-08-26 17:23] LABS: Glucose,Whole Blood 84 mg/dL (75-99)
[2021-08-26 18:34] LABS: Glucose,Whole Blood 126 mg/dL (75-99)
[2021-08-26 20:37] LABS: Glucose,Whole Blood 132 mg/dL (75-99)
[2021-08-26] MEDS ORDERED: ASPIRIN 81 MG PO SCH (21:30)
[2021-08-26] MEDS: hydrALAZINE HCL 25 MG TAB PO SCH (21:40)
[2021-08-26] MEDS: amLODIPine 10 MG TAB PO SCH (21:40)
[2021-08-26] MEDS: ATORVASTATIN 80 MG TAB PO SCH (21:40)
[2021-08-26] MEDS: carvediloL 12.5 MG TAB PO SCH (21:40)
[2021-08-27] MEDS: FUROSEMIDE 10 MG/ML 4 ML VIAL IV SCH (02:56)
[2021-08-27] MEDS ORDERED: PIPERACILLIN-TAZOBACTAM 3.375 GM in SODIUM CHLORIDE 0.9% 100 ML IVPB SCH (06:00)
[2021-08-27] MEDS: carvediloL 12.5 MG TAB PO SCH ×2 (06:30→16:37)
[2021-08-27] MEDS: INSULIN ASPART (NovoLOG) 100 UNIT/ML VIAL SQ SCH ×4 (06:31→21:37)
[2021-08-27 06:36] LABS: Glucose,Whole Blood 138 mg/dL (75-99)
[2021-08-27] MEDS ORDERED: FUROSEMIDE 10 MG/ML 4 ML VIAL IV STA (08:40)
[2021-08-27] MEDS ORDERED: ASPIRIN 325 MG TAB PO SCH (09:00)
[2021-08-27] MEDS ORDERED: AZITHROMYCIN 500 MG in SODIUM CHLORIDE 0.9% 250 ML IVPB SCH (09:00)
[2021-08-27] MEDS: amLODIPine 10 MG TAB PO SCH (09:12)
[2021-08-27] MEDS: ASPIRIN 81 MG PO SCH (09:12)
[2021-08-27] MEDS: ATORVASTATIN 80 MG TAB PO SCH (09:12)
[2021-08-27] MEDS: ERGOCALCIFEROL 1,250 MCG (50,000 IU) CAPSULE PO SCH (09:13)
[2021-08-27] MEDS: hydrALAZINE HCL 25 MG TAB PO SCH ×2 (09:13→21:37)
--- NOTE | 2021-08-27 09:59 | P.NPCON ---
History of Present Illness - Reason for Consult acute renal failure, chronic renal failure - History of Present Illness Reason for consultation: Acute kidney injury on chronic kidney disease History of present illness: Patient is a 71-year-old male seen in renal consultation for acute kidney injury on chronic kidney disease. Patient presented to the hospital with altered mental status. He was noted to be hypoglycemic and his mentation improved after he received glucose. Patient has history of malignant melanoma with metastasis to the lung and brain. Creatinine on admission was 3.59. Labs from today are pending. Patient does have chronic kidney disease stage IV with baseline creatinine near 2.5 secondary to diabetic kidney disease. He also has history of diastolic CHF with tricuspid regurgitation and pulmonary hypertension. He is maintained on IV Lasix 40 mg twice daily. Urine output has been 1800 mL in the last 24 hours. He has a Albright catheter. Denies vomiting or diarrhea. No chest pain or shortness of breath. He is currently on 5 L high flow cannula. Denies use of nonsteroidals. Blood pressure stable. Vital signs are stable. General: The patient appeared well nourished and normally developed. HEENT: Head exam is unremarkable. LUNGS: Breath sounds decreased. HEART: Rate and Rhythm are regular. ABDOMEN: Soft, no distention. EXTREMITITES: Trace edema. Past Medical History Past Medical History: Coronary Artery Disease (CAD), Cancer, Diabetes Mellitus, Eye Disorder, GERD/Reflux, GI Bleed, Hyperlipidemia, Hypertension, Myocardial Infarction ([place]), Osteoarthritis (OA), Renal Disease Additional Past Medical History / Comment(s): glaucoma in the left eye, stage III chronic kidney disease, Melanoma on back R ear and abd removed, covid Last Myocardial Infarction Date:: 2015 History of Any Multi-Drug Resistant Organisms: None Reported Past Surgical History: Adenoidectomy, Appendectomy, Heart Catheterization, Heart Catheterization With Stent, Orthopedic Surgery, Tonsillectomy Additional Past Surgical History / Comment(s): tumor from L shoulder, bilateral carpel tunnel, colonoscopy, R knee arthroscopy;CA removed from R ear back & abdomen; cataract L eye, liver biopsy on 08/14/18 Past Anesthesia/Blood Transfusion Reactions: No Reported Reaction Date of Last Stent Placement:: 12/07/15 Past Psychological History: No Psychological Hx Reported Additional Psychological History / Comment(s): Pt resides with his spouse. He works at [employer]. He is independent. Smoking Status: Never smoker Past Alcohol Use History: Occasional Past Drug Use History: None Reported - Past Family History Father Family Medical History: No Reported History Additional Family Medical History / Comment(s): Father was a heavy smoker. He was at age 70. Mother Family Medical History: No Reported History Additional Family Medical History / Comment(s): Mother is alive and is 92 yrs old. Medications and Allergies Home Medications Medication Instructions Recorded Confirmed Type Atorvastatin [Lipitor] 80 mg PO DAILY 04/30/17 08/26/21 History Aspirin EC [Ecotrin Low Dose] 81 mg PO DAILY 10/18/20 08/26/21 History Ergocalciferol [Vitamin D2 (1250 1,250 mcg PO HERBERT 03/16/21 08/26/21 History Mcg = 91814 Iu)] Furosemide [Lasix] 40 mg PO Q48H 08/26/21 08/26/21 History Insulin Detemir [Levemir Flextouch 35 units SQ HS 08/26/21 08/26/21 History Pen] amLODIPine [Norvasc] 10 mg PO DAILY 08/26/21 08/26/21 History calcitrioL [Calcitriol] 0.25 mcg PO HERBERT 08/26/21 08/26/21 History carvediloL [Coreg*] 12.5 mg PO BID 08/26/21 08/26/21 History hydrALAZINE HCL [Apresoline] 25 mg PO BID 08/26/21 08/26/21 History Allergies Allergy/AdvReac Type Severity Reaction Status Date / Time No Known Allergies Allergy Verified 08/26/21 14:19 Physical Exam Vitals: Vital Signs Temp Pulse Pulse Resp BP BP Pulse Ox 08/27/21 08:22 18 89 L 08/27/21 08:12 18 08/27/21 08:11 18 89 L 08/27/21 08:00 98.6 F 67 18 129/60 79 L 08/27/21 03:09 98.1 F 72 18 137/56 94 L 08/26/21 23:09 98.3 F 75 18 164/63 94 L 08/26/21 20:00 98.2 F 73 18 168/67 90 L 08/26/21 18:33 98.3 F 70 18 140/63 90 L 08/26/21 16:25 71 20 08/26/21 15:30 97.8 F 72 18 145/78 88 L 08/26/21 14:30 73 20 148/72 88 L 08/26/21 14:00 69 20 144/69 90 L 08/26/21 12:57 75 18 147/73 94 L 08/26/21 12:08 93.1 F L 08/26/21 10:53 68 18 150/68 93 L Intake and Output 08/26/21 08/27/21 08/27/21 22:59 06:59 14:59 Intake Total 180 Output Total 381 209 1656 Balance -350 -500 -1620 Intake: Oral 180 Output: Urine 397 988 6553 Uretheral (Albright) 1800 Other: Voiding Method Indwelling Catheter Indwelling Catheter Indwelling Catheter Weight 90.718 kg 90.5 kg Results - Lab Results Most recent lab results Calcium 8.1 mg/dL (8.4-10.2) L 08/26/21 11:46 08/26/21 11:46 08/26/21 11:46 Assessment and Plan Plan: Assessment: 1. Acute kidney injury secondary to ATN secondary to cardiorenal syndrome. Creatinine 2.59 on admission. 2. Chronic kidney disease stage IV secondary to diabetic kidney disease with baseline creatinine near 2.5. 3. Acute on chronic diastolic CHF with moderate tricuspid regurgitation and pulmonary hypertension. 4. Volume overload. 5. Malignant melanoma with metastasis. 6. Hypokalemia from poor intake and diuretics. 7. Chronic kidney disease mineral bone disease maintained on calcitriol. 8. Diabetes mellitus. Hypoglycemic on admission. 9. Hypertension with chronic kidney disease. Stable. 10. Pneumonia on antibiotics. Tested negative for COVID-19. 11. Metabolic acidosis secondary to acute kidney injury. Plan: Lasix 40 mg IV once today. Follow-up morning labs. Maintain Albright for another 24 hours. Strict I's and O's. Avoid nephrotoxins. Continue to monitor renal function and urine output. Thank you for the consultation. I will continue to follow the patient with you during his hospital stay.
[2021-08-27 10:34] LABS: Basophils % (A) 0 %; Eosinophils # (A) 0.2 k/uL (0-0.7); Eosinophils % (A) 2 %; Lymphocytes # (A) 0.3 k/uL (1.0-4.8); Lymphocytes % (A) 4 %; MCH 28.9 pg (25.0-35.0); MCHC 35.5 g/dL (31.0-37.0); MCV 81.5 fL (80.0-100.0); Mean Platelet Volume 7.3; Monocytes # (A) 0.5 k/uL (0-1.0); Monocytes % (A) 6 %; Neutrophils # (A) 7.5 k/uL (1.3-7.7); Neutrophils % (A) 87 %; Platelet Count 185 k/uL (150-450); Poikilocytosis Slight; RBC 2.82 m/uL (4.30-5.90); RDW 14.8 % (11.5-15.5); WBC 8.6 k/uL (3.8-10.6)
--- NOTE | 2021-08-27 10:38 | P.CRDCN ---
History of Present Illness Consult date: 08/27/21 Consult reason: atrial fibrillation Chief complaint: Dyspnea, hypoglycemia History of present illness: This is Salinas Beaver NP dictating a consult on this patient on behalf of Dr. Dunn. The patient was interviewed and examined. HPI: [Patient is a pleasant 71-year-old male who initially presented to the hospital with dyspnea, hypoglycemia, and altered mental status. Patient was originally found to have a blood sugar in the 30s. Patient blood sugar was returned to normal, and subsequently the patient was found to have an EKG demonstrated atrial fibrillation. Labs are checked the patient was also discovered to have a BNP at 10,700. Patient is a past medical history that includes coronary artery disease, cancer-malignant melanoma, diabetes, GERD, hyperlipidemia, hypertension, [place], osteoarthritis, renal disease, glaucoma, CKD. After treatment patient was found to return to baseline orientation. Chest x- ray demonstrated cardiomegaly with small left pleural effusion, mild to moderate interstitial edema. Patient was subsequently admitted for treatment of multiple lab abnormalities as well as the shortness of breath and hypoglycemia. Patient reported this morning that he feels better than yesterday, and feels that his breathing is back to his baseline.] ROS: [No fever, chills, or rigors] [no cough, phlegm, or expectoration] [no nausea, vomiting, or diarrhea] [no hematuria, dysuria] [no musculoskelatal complaints] [no strokes or seizures] [no skin lesions] EXAMINATION: GENERAL: Well-appearing, well-nourished and in no acute distress. NECK: Supple without JVD or thyromegaly. LUNGS: Breath sounds clear to auscultation bilaterally. Respiration equal and unlabored. No wheezes, rales or rhonchi. HEART: Regular rate and irregular rhythm without murmurs, rubs or gallops. S1 and S2 heard. EXTREMITIES: Normal range of motion, no edema. No clubbing or cyanosis. Peripheral pulses intact and strong. REVIEW OF LABS, ECG & MEDICAL DATA: LABS: White count 11.0, hemoglobin 9.9, platelets 225, PT 11.1, INR 1.0, sodium 139, potassium 3.4, B1 109, creatinine 3.59, calcium 8.1, BNP 10,700 EKG: Atrial fibrillation with rate control IMAGING: Chest x-ray dated 08/26/2021-cardiomegaly with small left pleural effusion improved from prior. Suspect mild to moderate interstitial edema. Correlate for CHF exacerbation. Areas of underlying acute infiltrate not excluded. CT of the brain without contrast dated 08/26/2021-no acute intracranial hemorrhage or midline shift. There is mild to moderate diffuse age-related cerebral atrophy and chronic small vessel ischemic change redemonstrated. No significant change from prior CT. Chest CT without contrast dated 08/26/2021-bilateral pleural effusions with basilar pulmonary airspace infiltrate and atelectasis that is significantly increased compared to old examined. Cardiomegaly. Heart appears increased compared to old examined. There is mediastinal adenopathy similar to old exam. VITALS: Temp 98.6, pulse 67, respirations 18, blood pressure 129/60, O2 saturation 89% on 5 L of high flow IMPRESSION/PLAN: 1. Congestive heart failure-agree with nephrology recommendation to give the patient one dose of Lasix 40 mg IV today. Waiting for lab work from today. 2. Atrial fibrillation with rate control-continue current home medications. The patient has been seen and evaluated. Plan of care has been reviewed and agreed upon by Dr. Dunn. Thank you for the consult and allowing us to participate in the care of this patient. Past Medical History Past Medical History: Coronary Artery Disease (CAD), Cancer, Diabetes Mellitus, Eye Disorder, GERD/Reflux, GI Bleed, Hyperlipidemia, Hypertension, Myocardial Infarction ([place]), Osteoarthritis (OA), Renal Disease Additional Past Medical History / Comment(s): glaucoma in the left eye, stage III chronic kidney disease, Melanoma on back R ear and abd removed, covid Last Myocardial Infarction Date:: 2015 History of Any Multi-Drug Resistant Organisms: None Reported Past Surgical History: Adenoidectomy, Appendectomy, Heart Catheterization, Heart Catheterization With Stent, Orthopedic Surgery, Tonsillectomy Additional Past Surgical History / Comment(s): tumor from L shoulder, bilateral carpel tunnel, colonoscopy, R knee arthroscopy;CA removed from R ear back & abdomen; cataract L eye, liver biopsy on 08/14/18 Past Anesthesia/Blood Transfusion Reactions: No Reported Reaction Date of Last Stent Placement:: 12/07/15 Past Psychological History: No Psychological Hx Reported Additional Psychological History / Comment(s): Pt resides with his spouse. He works at [employer]. He is independent. Smoking Status: Never smoker Past Alcohol Use History: Occasional Past Drug Use History: None Reported - Past Family History Father Family Medical History: No Reported History Additional Family Medical History / Comment(s): Father was a heavy smoker. He was at age 70. Mother Family Medical History: No Reported History Additional Family Medical History / Comment(s): Mother is alive and is 92 yrs old. Medications and Allergies Home Medications Medication Instructions Recorded Confirmed Type Atorvastatin [Lipitor] 80 mg PO DAILY 04/30/17 08/26/21 History Aspirin EC [Ecotrin Low Dose] 81 mg PO DAILY 10/18/20 08/26/21 History Ergocalciferol [Vitamin D2 (1250 1,250 mcg PO HERBERT 03/16/21 08/26/21 History Mcg = 11271 Iu)] Furosemide [Lasix] 40 mg PO Q48H 08/26/21 08/26/21 History Insulin Detemir [Levemir Flextouch 35 units SQ HS 08/26/21 08/26/21 History Pen] amLODIPine [Norvasc] 10 mg PO DAILY 08/26/21 08/26/21 History calcitrioL [Calcitriol] 0.25 mcg PO HERBERT 08/26/21 08/26/21 History carvediloL [Coreg*] 12.5 mg PO BID 08/26/21 08/26/21 History hydrALAZINE HCL [Apresoline] 25 mg PO BID 08/26/21 08/26/21 History Allergies Allergy/AdvReac Type Severity Reaction Status Date / Time No Known Allergies Allergy Verified 08/26/21 14:19 Physical Exam Vitals: Vital Signs Temp Pulse Pulse Resp BP BP Pulse Ox 08/27/21 08:22 18 89 L 08/27/21 08:12 18 08/27/21 08:11 18 89 L 08/27/21 08:00 98.6 F 67 18 129/60 79 L 08/27/21 03:09 98.1 F 72 18 137/56 94 L 08/26/21 23:09 98.3 F 75 18 164/63 94 L 08/26/21 20:00 98.2 F 73 18 168/67 90 L 08/26/21 18:33 98.3 F 70 18 140/63 90 L 08/26/21 16:25 71 20 08/26/21 15:30 97.8 F 72 18 145/78 88 L 08/26/21 14:30 73 20 148/72 88 L 08/26/21 14:00 69 20 144/69 90 L 08/26/21 12:57 75 18 147/73 94 L 08/26/21 12:08 93.1 F L 08/26/21 10:53 68 18 150/68 93 L Intake and Output 08/26/21 08/27/21 08/27/21 22:59 06:59 14:59 Intake Total 180 Output Total 284 688 8991 Balance -350 -500 -1620 Intake: Oral 180 Output: Urine 610 206 9130 Uretheral (Albright) 1800 Other: Voiding Method Indwelling Catheter Indwelling Catheter Indwelling Catheter Weight 90.718 kg 90.5 kg Results 08/26/21 11:46 08/26/21 11:46 Cardiac Enzymes 08/26/21 Range/Units 11:46 AST 31 (17-59) U/L Coagulation 08/26/21 Range/Units 11:46 PT 11.1 (9.0-12.0) sec APTT 25.5 (22.0-30.0) sec CBC 08/26/21 Range/Units 11:46 WBC 11.0 H (3.8-10.6) k/uL RBC 3.44 L (4.30-5.90) m/uL Hgb 9.9 L (13.0-17.5) gm/dL Hct 27.5 L (39.0-53.0) % Plt Count 225 (150-450) k/uL Comprehensive Metabolic Panel 08/26/21 Range/Units 11:46 Sodium 139 (137-145) mmol/L Potassium 3.4 L (3.5-5.1) mmol/L Chloride 110 H (98-107) mmol/L Carbon Dioxide 18 L (22-30) mmol/L BUN 109 H* (9-20) mg/dL Creatinine 3.59 H (0.66-1.25) mg/dL Glucose 117 H (74-99) mg/dL Calcium 8.1 L (8.4-10.2) mg/dL AST 31 (17-59) U/L ALT 19 (4-49) U/L Alkaline Phosphatase 122 (38-126) U/L Total Protein 5.9 L (6.3-8.2) g/dL Albumin 2.9 L (3.5-5.0) g/dL Current Medications Generic Name Dose Route Start Last Admin Trade Name Jaskaranq PRN Reason Stop Dose Admin Amlodipine Besylate 10 mg 08/26/21 21:30 08/27/21 09:12 Amlodipine 10 Mg Tab PO 10 mg DAILY KARMA Administration Aspirin 81 mg 08/27/21 09:00 08/27/21 09:12 Aspirin 81 Mg PO 81 mg DAILY KARMA Administration Atorvastatin Calcium 80 mg 08/26/21 21:30 08/27/21 09:12 Atorvastatin 80 Mg Tab PO 80 mg DAILY KARMA Administration Calcitriol 0.25 mcg 08/27/21 09:00 08/27/21 09:12 Calcitriol 0.25 Mcg Cap PO 0.25 mcg HERBERT KARMA Administration Carvedilol 12.5 mg 08/26/21 21:30 08/27/21 06:30 Carvedilol 12.5 Mg Tab PO 12.5 mg BID-W/MEALS KARMA Administration Ergocalciferol 1,250 mcg 08/27/21 09:00 08/27/21 09:13 Ergocalciferol 1,250 Mcg (50,000 Iu) Capsule PO 1,250 mcg HERBERT KARMA Administration Hydralazine HCl 25 mg 08/26/21 21:30 08/27/21 09:13 Hydralazine Hcl 25 Mg Tab PO 25 mg BID KARMA Administration Azithromycin 500 mg/ Sodium 250 mls @ 250 mls/hr 08/27/21 09:00 Chloride IVPB 08/30/21 09:59 DAILY KARMA Piperacillin Sod/Tazobactam 100 mls @ 25 mls/hr 08/27/21 06:00 08/27/21 06:31 Sod 3.375 gm/ Sodium Chloride IVPB 09/02/21 18:01 25 mls/hr Q12H KARMA Administration Insulin Aspart 0 unit 08/27/21 07:30 08/27/21 06:31 Insulin Aspart (Novolog) 100 Unit/Ml Vial SQ 1 unit ACHS KARMA Administration Protocol Miscellaneous Information 1 each 08/26/21 15:10 Pneumonia Protocol Utilized 1 Each Misc PO ONCE PRN Per Protocol Sodium Chloride 10 ml 08/26/21 21:00 08/27/21 09:13 Sodium Chloride 0.9% Flush 10 Ml Syringe IV 10 ml BID KARMA Administration Intake and Output 08/26/21 08/27/21 08/27/21 22:59 06:59 14:59 Intake Total 180 Output Total 435 627 6517 Balance -464 -544 -4147 Intake: Oral 180 Output: Urine 539 732 7096 Uretheral (Albright) 1800 Other: Voiding Method Indwelling Catheter Indwelling Catheter Indwelling Catheter Weight 90.718 kg 90.5 kg 08/26/21 11:46 08/26/21 11:46
[2021-08-27 10:42] LABS: Albumin 2.4 g/dL (3.5-5.0); Calcium 7.7 mg/dL (8.4-10.2); Magnesium 2.1 mg/dL (1.6-2.3); Potassium 3.8 mmol/L (3.5-5.1); Total Bilirubin 0.9 mg/dL (0.2-1.3); Total Protein 5.1 g/dL (6.3-8.2)
[2021-08-27 10:51] LABS: HGB 8.1 gm/dL (13.0-17.5)
--- NOTE | 2021-08-27 11:24 | XR ---
EXAMINATION TYPE: XR chest 2V DATE OF EXAM: 08/27/2021 COMPARISON: 08/26/2021 HISTORY: 71 years Male. STUDY INDICATION GIVEN: pneumonia . TECHNIQUE: Frontal and lateral chest radiographs. IMPRESSION: Stable bibasilar right greater than left patchy and interstitial opacities with stable moderate cardi omegaly trace left pleural effusion findings may be on the basis of multifocal pneumonia/atelectasis and/or congestive heart failure.No pneumothorax. Sternotomy wires and osseous structures are not significantly changed since prior.
[2021-08-27 11:41] LABS: Glucose,Whole Blood 262 mg/dL (75-99)
[2021-08-27] MEDS ORDERED: VANCOMYCIN 500 MG in SODIUM CHLORIDE 0.9% 250 ML IVPB SCH (14:00)
[2021-08-27] MEDS ORDERED: VANCOMYCIN IV PER PHARMACY 1 EACH MISC MISCELLANE PRN (14:05)
[2021-08-27] MEDS ORDERED: VANCOMYCIN 1,500 MG in SODIUM CHLORIDE 0.9% 250 ML IVPB ONE (15:00)
[2021-08-27] MEDS: PIPERACILLIN-TAZOBACTAM 3.375 GM in SODIUM CHLORIDE 0.9% 100 ML IVPB SCH (16:37)
[2021-08-27 17:14] LABS: Glucose,Whole Blood 315 mg/dL (75-99)
[2021-08-27 20:17] LABS: Glucose,Whole Blood 302 mg/dL (75-99)
[2021-08-27] MEDS ORDERED: INSULIN DETEMIR (LEVEMIR) 100 UNIT/ML SYR SQ SCH (21:00)
[2021-08-27] MEDS: SODIUM BICARBONATE TAB 650 MG TAB PO SCH (21:37)
[2021-08-28] MEDS: PIPERACILLIN-TAZOBACTAM 3.375 GM in SODIUM CHLORIDE 0.9% 100 ML IVPB SCH ×2 (05:18→17:40)
[2021-08-28 05:52] LABS: Glucose,Whole Blood 133 mg/dL (75-99)
[2021-08-28] MEDS: INSULIN ASPART (NovoLOG) 100 UNIT/ML VIAL SQ SCH ×4 (06:18→22:26)
[2021-08-28] MEDS: carvediloL 12.5 MG TAB PO SCH ×2 (06:18→17:40)
[2021-08-28 07:14] LABS: Calcium 7.9 mg/dL (8.4-10.2); Magnesium 2.2 mg/dL (1.6-2.3); Potassium 3.7 mmol/L (3.5-5.1)
[2021-08-28] MEDS ORDERED: VANCOMYCIN 1,500 MG in SODIUM CHLORIDE 0.9% 250 ML IVPB ONE (09:00)
--- NOTE | 2021-08-28 09:28 | P.HPIM ---
History of Present Illness H&P Date: 08/27/21 History of present illness This is a 70-year-old gentleman patient of Dr. Wyatt Pereira. He has underlying history of diabetes mellitus type 2, CAD with prior CABG, CK D stage III, hypertension, history of melanoma was in remission until March when patient was noted to have met metastatic melanoma with metastases to the lung with enlarged lymph nodes currently on immunotherapy. Patient had recent covid infection in September, with acute kidney injury secondary to covid infection September 2020 and follow Ernie since then. Patient was again admitted in November 09 for 2 days for acute diastolic congestive heart failure secondary to withdrawal off diuretics due to worsening kidney function. He was seen in the ER in March 20 for shortness of breath secondary to metastatic melanoma to his lungs with bilateral pleural effusions. Patient has been getting frequent thoracentesis and underwent pigtail catheter placement in the left chest in April. He was initially getting fluid removed up to 1 L every day but currently patient is getting fluid removed up to 550 mL once a week, last one 2 days ago. Patient has noticed poor appetite and increased shortness of breath for the past 1 week. He had his Covid booster 6 days ago following which he went to [facility] to have a brain MRI and CT. He received his immunotherapy 3 days ago. He has not recovered since then. His noticed poor appetite increased weakness associated with cough and shortness of breath. Patient was found to have low blood sugar in the low 30s which came back to normal. EKG demonstrated atrial fibrillation In the ER patient is noted to be hypoxic and was placed on 5 L of high flow still saturating at 89%. Otherwise patient is afebrile pulse 66 respiratory rate 18 blood pressure 127/58. He had a leukocytosis of 11, hemoglobin 9.9 platelet 225, BUN 109 creatinine 3.59. Sodium 139 potassium 3.4 chloride 110 [place] 18 [place] [id number] Chest x-ray on 08/26 suggests cardiomegaly with small left pleural effusion R [id number] interstitial edema concerning for CHF exacerbation was noted. CT chest was obtained that showed bilateral pleural effusion with basilar pulmonary airspace infiltrates and atelectasis significantly increased compared to old exam with cardiomegaly and mediastinotomy edema but the similar to old exam. ROS Constitutional: Endorses chills, Denies fever, endorses lethargy, endorses malaise, Denies poor appetite, endorses weakness, Denies weight loss Eyes: denies decreased vision, denies diplopia, denies discharge, denies pain Ears: deny: decreased hearing Ears, nose, mouth and throat: Denies dental pain, Denies headache, Denies nasal discharge, Denies nose pain Cardiovascular: Denies chest pain, endorses decreased exercise tolerance, endorses bilateral lower extremity edema, Denies high blood pressure, Denies irregular heart beat, Denies palpitations, Denies paroxysmal nocturnal dyspnea, Denies rapid heart beat, endorses shortness of breath Respiratory: Denies congestion, endorses dry cough, Denies cough with sputum, endorses dyspnea, Denies home oxygen, Denies wheezing Gastrointestinal: Denies abdominal pain, Denies change in bowel habits, Denies coffee ground emesis, Denies early satiety, Denies excessive gas, Denies heartburn, Denies hematemesis, Denies hematochezia, Denies loss of appetite, Denies nausea, Denies vomiting Genitourinary: Denies dysuria, Denies flank pain, Denies kidney stones, Denies menorrhagia, Denies urgency, Denies urinary frequency Musculoskeletal: Endorses gait dysfunction, Denies limitation of motion, Denies morning stiffness, Denies muscle cramps Integumentary: Denies rash, Denies wounds, Denies brittle nails, Denies change in hair/nails, Denies darkening of skin Neurological: Denies balance difficulties, Denies change in speech, Denies double vision, Denies gait dysfunction, Denies loss of vision, Denies motor disturbance, Denies numbness, Denies paralysis, Denies paresthesias, Denies seizures Psychiatric: Denies anxiety, Denies depression Endocrine: Denies excessive sweating, Denies excessive thirst, Denies high blood sugars, Denies palpitations Hematologic/Lymphatic: Denies easy bruising, Denies lymphadenopathy Social history Nonsmoker nondrinker He lives with his Family history Father was a heavy smoker disease at the age of 70 Mother is alive and 92 One brothersignificant medical problems 3 sister no significant medical problem 1 son and 1 daughter with no medical problems Physical exam - Constitutional General appearance: cooperative, no acute distress, appears frail, lack of muscle tone wearing 6 L high flow cannula - EENT Eyes: anicteric sclerae, PERRLA, normal appearance ENT: hearing grossly normal - Neck Neck: no lymphadenopathy, normal ROM, no other, no rigidity, no stridor, no thyromegaly - Respiratory Respiratory: bilateral: Decreased air entry with the back crackles involving the left upper and mid lobe with decreased air entry involving the right lung. Dull to percussion. No use of sensory muscles, catheter in the left pleural cavity, no drainage noted - Cardiovascular Rhythm: Irregularly irregular Heart sounds: normal: S1, S2 Abnormal Heart Sounds: no systolic murmur, no diastolic murmur, no rub, no S3 Gallop, no S4 Gallop, no click, no other - Gastrointestinal General gastrointestinal: normal bowel sounds, soft nontender - Integumentary Integumentary: Bilateral lower extremity edema left worse than the right - Neurologic Neurologic: No sensory or motor deficit - Musculoskeletal Musculoskeletal: gait not assessed, strength equal bilaterally - Psychiatric Psychiatric: A&O x's 3, appropriate affect Assessment and plan Acute diastolic CHF, ejection fraction 55-60% with severe concentric left ventricle hypertrophy and moderate to severe pulmonary hypertension moderate tricuspid regurgitation on October 2020 - on lasix 40 iv daily - Input and output monitoring - Daily weights - Cardiology consulted Acute hypoxic respiratory failure secondary to CHF exacerbation, community- acquired gram-negative pneumonia, bilateral pleural effusions -Initiated On vancomycin, pharmacy to dose and Zosyn 3.375 every 6 hours decreased to 2.25 every 6 hours - Hold IV fluids due to concern for CHF exacerbation - Covid negative - Continue DuoNeb as needed for shortness of breath - Lasix 40 IV once a day to help with diuresis - Sputum culture - Mucinex 1200 twice a day - Discontinue azithromycin Acute kidney injury secondary to ATN with cardiorenal syndrome on chronic kidney disease stage IV secondary to diabetic kidney disease with baseline creatinine 2.5 -avoid nephrotoxic agents - Lasix 40 mg IV once - Maintain Albright catheter today as per nephrology recommendation for input and output monitoring measurements - Nephrology consulted - Hold oral Lasix Atrial fibrillation, rate controlled - Continue Coreg 12.5 twice a day - on aspirin Metastatic melanoma with metastasis to the lung and lymph nodes enlargement. -On immunotherapy - Follows Dr. Adamson Recurrent pleural effusion With pleural cath involving the left pleural cavity unclear if related to melanoma - CT with b/l pluera effusion - Since April 2021, last thoracentesis on 2 days ago was 550 output - Thoracentesis few days to week - Follows cardiothoracic surgeon at the [facility] Hypoglycemia with history Diabetes mellitus type 2 - Levemir held - Insulin sliding scale - A1c ordered - Glucose checked before meals and at bedtime CAD with prior CABG in the past, status post occlusive disease in the LAD, and diagonal branch - followed by cardiology - Continue aspirin, Coreg, Lipitor 80 mg daily Covid infection 19 on 10/18 - Received Covid booster 1 week Uncontrolled hypertension - on amlodipine 10 mg 3 times a day, hydralazine, and IV Lasix 40 mg once a day Hyperlipidemia - Bradycardia milligrams History of GI bleed, none currently, was previously on Eliquis. Patient on aspirin only DVT prophylaxis - Heparin every 12 CODE STATUS full code Disposition- she needs to be hospitalized for at least 24-48 hours for stablisation Past Medical History Past Medical History: Coronary Artery Disease (CAD), Cancer, Diabetes Mellitus, Eye Disorder, GERD/Reflux, GI Bleed, Hyperlipidemia, Hypertension, Myocardial Infarction ([place]), Osteoarthritis (OA), Renal Disease Additional Past Medical History / Comment(s): glaucoma in the left eye, stage III chronic kidney disease, Melanoma on back R ear and abd removed, covid Last Myocardial Infarction Date:: 2015 History of Any Multi-Drug Resistant Organisms: None Reported Past Surgical History: Adenoidectomy, Appendectomy, Heart Catheterization, Heart Catheterization With Stent, Orthopedic Surgery, Tonsillectomy Additional Past Surgical History / Comment(s): tumor from L shoulder, bilateral carpel tunnel, colonoscopy, R knee arthroscopy;CA removed from R ear back & abdomen; cataract L eye, liver biopsy on 08/14/18 Past Anesthesia/Blood Transfusion Reactions: No Reported Reaction Date of Last Stent Placement:: 12/07/15 Past Psychological History: No Psychological Hx Reported Additional Psychological History / Comment(s): Pt resides with his spouse. He works at [employer]. He is independent. Smoking Status: Never smoker Past Alcohol Use History: Occasional Past Drug Use History: None Reported - Past Family History Father Family Medical History: No Reported History Additional Family Medical History / Comment(s): Father was a heavy smoker. He was at age 70. Mother Family Medical History: No Reported History Additional Family Medical History / Comment(s): Mother is alive and is 92 yrs old. Medications and Allergies Home Medications Medication Instructions Recorded Confirmed Type Atorvastatin [Lipitor] 80 mg PO DAILY 04/30/17 08/26/21 History Aspirin EC [Ecotrin Low Dose] 81 mg PO DAILY 10/18/20 08/26/21 History Ergocalciferol [Vitamin D2 (1250 1,250 mcg PO HERBERT 03/16/21 08/26/21 History Mcg = 93604 Iu)] Furosemide [Lasix] 40 mg PO Q48H 08/26/21 08/26/21 History Insulin Detemir [Levemir Flextouch 35 units SQ HS 08/26/21 08/26/21 History Pen] amLODIPine [Norvasc] 10 mg PO DAILY 08/26/21 08/26/21 History calcitrioL [Calcitriol] 0.25 mcg PO HERBERT 08/26/21 08/26/21 History carvediloL [Coreg*] 12.5 mg PO BID 08/26/21 08/26/21 History hydrALAZINE HCL [Apresoline] 25 mg PO BID 08/26/21 08/26/21 History Allergies Allergy/AdvReac Type Severity Reaction Status Date / Time No Known Allergies Allergy Verified 08/26/21 14:19 Physical Exam Vitals: Vital Signs Temp Pulse Pulse Resp BP BP Pulse Ox 08/27/21 08:22 18 89 L 08/27/21 08:12 18 08/27/21 08:11 18 89 L 08/27/21 08:00 98.6 F 67 18 129/60 79 L 08/27/21 03:09 98.1 F 72 18 137/56 94 L 08/26/21 23:09 98.3 F 75 18 164/63 94 L 08/26/21 20:00 98.2 F 73 18 168/67 90 L 08/26/21 18:33 98.3 F 70 18 140/63 90 L 08/26/21 16:25 71 20 08/26/21 15:30 97.8 F 72 18 145/78 88 L 08/26/21 14:30 73 20 148/72 88 L 08/26/21 14:00 69 20 144/69 90 L 08/26/21 12:57 75 18 147/73 94 L 08/26/21 12:08 93.1 F L 08/26/21 10:53 68 18 150/68 93 L Intake and Output 08/26/21 08/27/21 08/27/21 22:59 06:59 14:59 Intake Total 180 Output Total 984 650 0479 Balance -189 -994 -7777 Intake: Oral 180 Output: Urine 420 168 3311 Uretheral (Albright) 1800 Other: Voiding Method Indwelling Catheter Indwelling Catheter Indwelling Catheter Weight 90.718 kg 90.5 kg Results CBC & Chem 7: 08/27/21 09:58 08/27/21 09:58 Labs: Abnormal Lab Results - Last 24 Hours (Table) 08/26/21 08/26/21 08/26/21 Range/Units 11:00 11:16 11:45 WBC (3.8-10.6) k/uL RBC (4.30-5.90) m/uL Hgb (13.0-17.5) gm/dL Hct (39.0-53.0) % Neutrophils # (1.3-7.7) k/uL Lymphocytes # (1.0-4.8) k/uL Potassium (3.5-5.1) mmol/L Chloride (98-107) mmol/L Carbon Dioxide (22-30) mmol/L BUN (9-20) mg/dL Creatinine (0.66-1.25) mg/dL Glucose (74-99) mg/dL POC Glucose (mg/dL) 59 L 169 H 106 H (75-99) mg/dL Calcium (8.4-10.2) mg/dL Total Protein (6.3-8.2) g/dL Albumin (3.5-5.0) g/dL Urine Protein (Negative) Urine Blood (Negative) Amorphous Sediment (None) /hpf Urine Bacteria (None) /hpf Urine Mucus (None) /hpf 08/26/21 08/26/21 08/26/21 Range/Units 11:46 11:46 12:25 WBC 11.0 H (3.8-10.6) k/uL RBC 3.44 L (4.30-5.90) m/uL Hgb 9.9 L (13.0-17.5) gm/dL Hct 27.5 L (39.0-53.0) % Neutrophils # 10.0 H (1.3-7.7) k/uL Lymphocytes # 0.4 L (1.0-4.8) k/uL Potassium 3.4 L (3.5-5.1) mmol/L Chloride 110 H (98-107) mmol/L Carbon Dioxide 18 L (22-30) mmol/L BUN 109 H* (9-20) mg/dL Creatinine 3.59 H (0.66-1.25) mg/dL Glucose 117 H (74-99) mg/dL POC Glucose (mg/dL) (75-99) mg/dL Calcium 8.1 L (8.4-10.2) mg/dL Total Protein 5.9 L (6.3-8.2) g/dL Albumin 2.9 L (3.5-5.0) g/dL Urine Protein 2+ H (Negative) Urine Blood Small H (Negative) Amorphous Sediment Few H (None) /hpf Urine Bacteria Rare H (None) /hpf Urine Mucus Rare H (None) /hpf 08/26/21 08/26/21 08/26/21 Range/Units 15:54 18:33 20:00 WBC (3.8-10.6) k/uL RBC (4.30-5.90) m/uL Hgb (13.0-17.5) gm/dL Hct (39.0-53.0) % Neutrophils # (1.3-7.7) k/uL Lymphocytes # (1.0-4.8) k/uL Potassium (3.5-5.1) mmol/L Chloride (98-107) mmol/L Carbon Dioxide (22-30) mmol/L BUN (9-20) mg/dL Creatinine (0.66-1.25) mg/dL Glucose (74-99) mg/dL POC Glucose (mg/dL) 68 L 126 H 132 H (75-99) mg/dL Calcium (8.4-10.2) mg/dL Total Protein (6.3-8.2) g/dL Albumin (3.5-5.0) g/dL Urine Protein (Negative) Urine Blood (Negative) Amorphous Sediment (None) /hpf Urine Bacteria (None) /hpf Urine Mucus (None) /hpf 08/27/21 Range/Units 05:59 WBC (3.8-10.6) k/uL RBC (4.30-5.90) m/uL Hgb (13.0-17.5) gm/dL Hct (39.0-53.0) % Neutrophils # (1.3-7.7) k/uL Lymphocytes # (1.0-4.8) k/uL Potassium (3.5-5.1) mmol/L Chloride (98-107) mmol/L Carbon Dioxide (22-30) mmol/L BUN (9-20) mg/dL Creatinine (0.66-1.25) mg/dL Glucose (74-99) mg/dL POC Glucose (mg/dL) 138 H (75-99) mg/dL Calcium (8.4-10.2) mg/dL Total Protein (6.3-8.2) g/dL Albumin (3.5-5.0) g/dL Urine Protein (Negative) Urine Blood (Negative) Amorphous Sediment (None) /hpf Urine Bacteria (None) /hpf Urine Mucus (None) /hpf
[2021-08-28] MEDS: ASPIRIN 81 MG PO SCH (09:50)
[2021-08-28] MEDS: SODIUM BICARBONATE TAB 650 MG TAB PO SCH ×2 (09:50→22:25)
[2021-08-28] MEDS: ATORVASTATIN 80 MG TAB PO SCH (09:50)
[2021-08-28] MEDS: hydrALAZINE HCL 25 MG TAB PO SCH ×2 (09:50→22:25)
[2021-08-28] MEDS: amLODIPine 10 MG TAB PO SCH (09:52)
--- NOTE | 2021-08-28 10:44 | P.PN ---
Subjective Progress Note Date: 08/28/21 HISTORY OF PRESENT ILLNESS: This is a 71-year-old male who sees Dr. Xiong in the office. Patient is admitted to the hospital secondary to CHF, shortness of breath, and atrial fibrillation. Patient had an echocardiogram completed in July 2021 revealing ejection fraction 55-60%. Repeat echocardiogram is pending. Patient currently denies chest pain or pressure. He denies shortness of breath. Telemetry reveals sinus mechanism. Patient is not on anticoagulation secondary to a history of GI bleed per internal medicine's notes. The patient received a one-time dose of Lasix per nephrology. Creatinine today 3.86. PHYSICAL EXAM: VITAL SIGNS: Reviewed. GENERAL: Well-developed in no acute distress. NECK: Supple. No JVD or thyromegaly LUNGS: Respirations even and unlabored. Lungs essentially clear to auscultation bilaterally. HEART: Regular rate and rhythm. S1 and S2 heard. EXTREMITIES: Normal range of motion. No clubbing or cyanosis. Peripheral pulses intact. No lower extremity edema ASSESSMENT: Dyspnea Pneumonia Acute exacerbation of chronic diastolic congestive heart failure, ejection fraction 55-60% New-onset paroxysmal atrial for ablation, currently maintaining sinus mechanism History of GI bleed Metastatic melanoma with metastasis to the lung and lymph nodes Recurrent pleural effusion with pleural cath Diabetes Hypertension Hyperlipidemia History of Covid Coronary artery disease with previous CABG and PCI Acute on chronic kidney disease History of DVT PLAN: No anticoagulation as patient has a hx of GIB Continue current cardiac medications Monitor kidney function. Diuretics per nephrology Repeat echocardiogram pending. Await results Further recommendations pending patient course Nurse practitioner note has been reviewed by physician. Signing provider agrees with the documented findings, assessment, and plan of care. Objective - Vital Signs Vital signs: Vital Signs Temp 98.1 F 08/28/21 04:00 Pulse 64 08/28/21 04:00 Resp 17 08/28/21 04:00 BP 107/52 08/28/21 04:00 Pulse Ox 94 L 08/28/21 04:00 Intake & Output 08/27/21 08/28/21 08/28/21 18:59 06:59 18:59 Intake Total 2160 40 240 Output Total 2440 300 400 Balance -280 -260 -160 Weight 87 kg 87 kg Intake: IV 600 40 Azithromycin 500 mg In 250 Sodium Chloride 0.9% 250 ml @ 250 mls/hr IVPB DAILY [facility] Rx#:[id number] Invasive Line 1 20 Invasive Line 2 20 Piperacillin-Tazobactam 3 100 .375 gm In Sodium Chloride 0.9% 100 ml @ 25 mls/hr IVPB Q12H [facility] Rx# :[id number] Vancomycin 1,500 mg In 250 Sodium Chloride 0.9% 250 ml @ 125 mls/hr IVPB ONCE ONE Rx#:[id number] Oral 1560 240 Output: Urine 2440 300 400 Uretheral (Albright) 2100 Other: Voiding Method Indwelling Catheter Indwelling Catheter - Labs CBC & Chem 7: 08/27/21 09:58 08/28/21 05:48 Labs: Abnormal Lab Results - Last 24 Hours (Table) 08/27/21 08/27/21 08/27/21 Range/Units 09:58 09:58 11:39 RBC 2.82 L (4.30-5.90) m/uL Hgb 8.1 L D (13.0-17.5) gm/dL Hct 23.0 L (39.0-53.0) % Lymphocytes # 0.3 L (1.0-4.8) k/uL Chloride 108 H (98-107) mmol/L Carbon Dioxide 18 L (22-30) mmol/L BUN 108 H* (9-20) mg/dL Creatinine 3.60 H (0.66-1.25) mg/dL Glucose 227 H (74-99) mg/dL POC Glucose (mg/dL) 262 H (75-99) mg/dL Calcium 7.7 L (8.4-10.2) mg/dL Total Protein 5.1 L (6.3-8.2) g/dL Albumin 2.4 L (3.5-5.0) g/dL 08/27/21 08/27/21 08/28/21 Range/Units 17:12 20:16 05:48 RBC (4.30-5.90) m/uL Hgb (13.0-17.5) gm/dL Hct (39.0-53.0) % Lymphocytes # (1.0-4.8) k/uL Chloride 110 H (98-107) mmol/L Carbon Dioxide 19 L (22-30) mmol/L BUN 107 H* (9-20) mg/dL Creatinine 3.86 H (0.66-1.25) mg/dL Glucose 118 H (74-99) mg/dL POC Glucose (mg/dL) 315 H 302 H (75-99) mg/dL Calcium 7.9 L (8.4-10.2) mg/dL Total Protein (6.3-8.2) g/dL Albumin (3.5-5.0) g/dL 08/28/21 Range/Units 05:51 RBC (4.30-5.90) m/uL Hgb (13.0-17.5) gm/dL Hct (39.0-53.0) % Lymphocytes # (1.0-4.8) k/uL Chloride (98-107) mmol/L Carbon Dioxide (22-30) mmol/L BUN (9-20) mg/dL Creatinine (0.66-1.25) mg/dL Glucose (74-99) mg/dL POC Glucose (mg/dL) 133 H (75-99) mg/dL Calcium (8.4-10.2) mg/dL Total Protein (6.3-8.2) g/dL Albumin (3.5-5.0) g/dL Microbiology - Last 24 Hours (Table) 08/26/21 11:46 Blood Culture - Preliminary Blood No Growth after 24 hours 08/26/21 11:46 Blood Culture - Preliminary Blood No Growth after 24 hours
[2021-08-28 11:54] LABS: Glucose,Whole Blood 324 mg/dL (75-99)
[2021-08-28] MEDS: REPAGLINIDE 1 MG TAB PO SCH ×2 (12:32→17:38)
--- NOTE | 2021-08-28 12:41 | PN ---
PROGRESS NOTE Patient is seen for followup for acute kidney injury. Renal function is slightly weaker today with creatinine at 3.8 from 3.6 yesterday. The patient has had good urine output. His 24-hour output was at 2.7 L. Vancomycin has been discontinued. The patient is not on any diuretics or IV fluids currently. He has an indwelling Albright catheter. Blood pressure is noted to be slightly on the lower side. PHYSICAL EXAMINATION: On examination today, blood pressure 126/66, heart rate 62 per minute. Earlier pressure was 107/5. O2 sats 94% on 6 L nasal cannula. Examination of the heart S1, S2. Examination of lungs decreased breath sounds at the bases. Abdomen is soft, nontender. Examination of lower extremities shows no evidence of edema. [employer] exam grossly intact. LAB: Show sodium 140, potassium 3.7, chloride 110, CO2 is 19, BUN 107, serum creatinine 3.8. ASSESSMENT: 1. Acute kidney injury, appears to be mostly acute tubular necrosis currently with good urine output. The patient has an indwelling Albright catheter. He is not on any diuretics. Since the blood pressure is on the lower side I will hold off on the Norvasc and repeat labs in a.m. 2. Chronic kidney disease stage 4 secondary to diabetic kidney disease, baseline creatinine about 2.5. 3. Acute on chronic diastolic congestive heart failure with moderate tricuspid regurg, pulmonary hypertension. 4. Volume overload, currently off diuretics. 5. Malignant melanoma with metastasis. 6. Type 2 diabetes with hypoglycemia on initial admission. 7. Pneumonia maintained on antibiotics, COVID negative. 8. Metabolic acidosis associated with acute kidney injury. PLAN: Continue off diuretics. Discontinue Norvasc as blood pressure is on the lower side. Repeat labs in a.m. Avoid nephrotoxic agents. Avoid hypotension. Continue with the Albright catheter. MMODL / IJN: [id number] /
--- NOTE | 2021-08-28 15:26 | P.PN ---
Subjective Progress Note Date: 08/28/21 History of present illness This is a 70-year-old gentleman patient of Dr. Wyatt Pereira. He has underlying history of diabetes mellitus type 2, CAD with prior CABG, CK D stage III, hypertension, history of melanoma was in remission until March when patient was noted to have met metastatic melanoma with metastases to the lung with enlarged lymph nodes currently on immunotherapy. Patient had recent covid infection in September, with acute kidney injury secondary to covid infection September 2020 and follow Ernie since then. Patient was again admitted in November 09 for 2 days for acute diastolic congestive heart failure secondary to withdrawal off diuretics due to worsening kidney function. He was seen in the ER in March 20 for shortness of breath secondary to metastatic melanoma to his lungs with bilateral pleural effusions. Patient has been getting frequent thoracentesis and underwent pigtail catheter placement in the left chest in April. He was initially getting fluid removed up to 1 L every day but currently patient is getting fluid removed up to 550 mL once a week, last one 2 days ago. Patient has noticed poor appetite and increased shortness of breath for the past 1 week. He had his Covid booster 6 days ago following which he went to [facility] to have a brain MRI and CT. He received his immunotherapy 3 days ago. He has not recovered since then. His noticed poor appetite increased weakness associated with cough and shortness of breath. Patient was found to have low blood sugar in the low 30s which came back to normal. EKG demonstrated atrial fibrillation In the ER patient is noted to be hypoxic and was placed on 5 L of high flow still saturating at 89%. Otherwise patient is afebrile pulse 66 respiratory rate 18 blood pressure 127/58. He had a leukocytosis of 11, hemoglobin 9.9 platelet 225, BUN 109 creatinine 3.59. Sodium 139 potassium 3.4 chloride 110 bicarb 18 [place] [id number] Chest x-ray on 08/26 suggests cardiomegaly with small left pleural effusion R [id number] interstitial edema concerning for CHF exacerbation was noted. CT chest was obtained that showed bilateral pleural effusion with basilar pulmonary airspace infiltrates and atelectasis significantly increased compared to old exam with cardiomegaly and mediastinotomy edema but the similar to old exam. 08/28: Patient has been seen and followed by cardiology with recommendations to continue current medications. Echocardiogram has been obtained and report is pending. Patient is also followed by nephrology with recommendations to continue diuretics, discontinue Norvasc. Repeat chest x-ray reveals stable bibasilar right greater than left patchy and interstitial opacities with stable moderate cardiomegaly, trace left pleural effusion may be on the basis of m ultifocal pneumonia/atelectasis and/or heart failure. No pneumothorax. Patient has been afebrile, heart rate 62, blood pressure 126/66, pulse ox 94% on 6 L nasal cannula. Plan is to wean oxygen down. Repeat blood work reveals sodium 140, potassium 3.7, chloride 110, CO2 19, BUN 107, creatinine 3.86. Blood sugars are running mostly in the 300s this morning 133. Prandin 1 mg with meals added and Levemir increased to home dose of 35 units at bedtime. Patient has Albright catheter in place which we will have removed today and bladder scan postvoid. Home oxygen assessment to be done. ROS Constitutional: Endorses chills, Denies fever, endorses lethargy, endorses malaise, Denies poor appetite, endorses weakness, Denies weight loss Eyes: denies decreased vision, denies diplopia, denies discharge, denies pain Ears: deny: decreased hearing Ears, nose, mouth and throat: Denies dental pain, Denies headache, Denies nasal discharge, Denies nose pain Cardiovascular: Denies chest pain, endorses decreased exercise tolerance, endorses bilateral lower extremity edema, Denies high blood pressure, Denies irregular heart beat, Denies palpitations, Denies paroxysmal nocturnal dyspnea, Denies rapid heart beat, endorses shortness of breath-improved Respiratory: Denies congestion, endorses dry cough, Denies cough with sputum, endorses dyspnea, Denies home oxygen, Denies wheezing Gastrointestinal: Denies abdominal pain, Denies change in bowel habits, Denies coffee ground emesis, Denies early satiety, Denies excessive gas, Denies heartburn, Denies hematemesis, Denies hematochezia, Denies loss of appetite, Denies nausea, Denies vomiting Genitourinary: Denies dysuria, Denies flank pain, Denies kidney stones, Denies menorrhagia, Denies urgency, Denies urinary frequency Musculoskeletal: Endorses gait dysfunction, Denies limitation of motion, Denies morning stiffness, Denies muscle cramps Integumentary: Denies rash, Denies wounds, Denies brittle nails, Denies change in hair/nails, Denies darkening of skin Neurological: Denies balance difficulties, Denies change in speech, Denies double vision, Denies gait dysfunction, Denies loss of vision, Denies motor disturbance, Denies numbness, Denies paralysis, Denies paresthesias, Denies seizures Psychiatric: Denies anxiety, Denies depression Endocrine: Denies excessive sweating, Denies excessive thirst, noted elevated blood sugars, Denies palpitations Hematologic/Lymphatic: Denies easy bruising, Denies lymphadenopathy Physical exam - Constitutional General appearance: cooperative, no acute distress, on 6 L high flow cannula - EENT Eyes: anicteric sclerae, PERRLA, normal appearance ENT: hearing grossly normal - Neck Neck: no lymphadenopathy, normal ROM, no other, no rigidity, no stridor, no thyromegaly - Respiratory Respiratory: bilateral: Decreased air entry with the back crackles involving the left upper and mid lobe with decreased air entry involving the right lung. Dull to percussion. No use of sensory muscles, catheter in the left pleural cavity, no drainage noted - Cardiovascular Rhythm: Irregularly irregular Heart sounds: normal: S1, S2 Abnormal Heart Sounds: no systolic murmur, no diastolic murmur, no rub, no S3 Gallop, no S4 Gallop, no click, no other - Gastrointestinal General gastrointestinal: normal bowel sounds, soft nontender - Integumentary Integumentary: Bilateral lower extremity edema left worse than the right - Neurologic Neurologic: No sensory or motor deficit - Musculoskeletal Musculoskeletal: gait not assessed, strength equal bilaterally - Psychiatric Psychiatric: A&O x's 3, appropriate affect Assessment and plan Acute diastolic heart failure, ejection fraction 55-60% with severe concentric left ventricle hypertrophy and moderate to severe pulmonary hypertension moderate tricuspid regurgitation on October 2020 - on lasix 40 iv once today - Input and output monitoring - Daily weights - Cardiology consult appreciated Acute hypoxic respiratory failure secondary to CHF exacerbation and bilateral pleural effusions, pneumonia ruled out -Continue vancomycin, pharmacy to dose and Zosyn - Covid negative - Continue DuoNeb as needed for shortness of breath - Lasix daily by nephrology - Sputum culture - Mucinex 1200 twice a day Acute kidney injury secondary to ATN with cardiorenal syndrome on chronic kidney disease stage IV secondary to diabetic kidney disease with baseline creatinine 2.5 -avoid nephrotoxic agents - Lasix dose daily by nephrology - Discontinue Albright catheter - Nephrology consulted - Hold oral Lasix New onset paroxysmal atrial fibrillation. - Continue Coreg 12.5 twice a day -No anticoagulation due to history of GI bleed Metastatic melanoma with metastasis to the lung and lymph nodes enlargement. -On immunotherapy - Follows Dr. Adamson Recurrent pleural effusion With pleural cath involving the left pleural cavity unclear if related to melanoma - CT with b/l plueral effusion - Since April 2021, last thoracentesis on 2 days ago was 550 output - Thoracentesis few days to week - Follows cardiothoracic surgeon at the [facility] Hypoglycemia with history Diabetes mellitus type 2, hypoglycemia resolved - Levemir resumed at home dose of 35 units at bedtime - Prandin 1 mg with meals added - Insulin sliding scale - A1c ordered - Glucose checked before meals and at bedtime CAD with prior CABG in the past, status post occlusive disease in the LAD, and diagonal branch - followed by cardiology - Continue aspirin, Coreg, Lipitor 80 mg daily Covid infection 19 on 10/18 - Received Covid booster 1 week Uncontrolled hypertension -And tinea Correctol 0.5 mg twice daily, hydralazine 25 mg twice daily, Hyperlipidemia - Bradycardia milligrams History of GI bleed, none currently, was previously on Eliquis. Patient on aspirin only DVT prophylaxis - Heparin every 12 CODE STATUS full code DISCHARGE PLAN TBD. Consult PT and OT. Impression and plan of care have been directed as dictated by the signing physician. Marry Andre nurse practitioner acting as scribe for signing physician. Objective - Vital Signs Vital signs: Vital Signs Temp 98.1 F 08/28/21 04:00 Pulse 64 08/28/21 04:00 Resp 17 08/28/21 04:00 BP 107/52 08/28/21 04:00 Pulse Ox 94 L 08/28/21 04:00 Intake & Output 08/27/21 08/28/21 08/28/21 18:59 06:59 18:59 Intake Total 2160 40 240 Output Total 2440 300 400 Balance -280 -260 -160 Weight 87 kg 87 kg Intake: IV 600 40 Azithromycin 500 mg In 250 Sodium Chloride 0.9% 250 ml @ 250 mls/hr IVPB DAILY [facility] Rx#:[id number] Invasive Line 1 20 Invasive Line 2 20 Piperacillin-Tazobactam 3 100 .375 gm In Sodium Chloride 0.9% 100 ml @ 25 mls/hr IVPB Q12H [facility] Rx# :[id number] Vancomycin 1,500 mg In 250 Sodium Chloride 0.9% 250 ml @ 125 mls/hr IVPB ONCE ONE Rx#:[id number] Oral 1560 240 Output: Urine 2440 300 400 Uretheral (Albright) 2100 Other: Voiding Method Indwelling Catheter Indwelling Catheter - Labs CBC & Chem 7: 08/27/21 09:58 08/28/21 05:48 Labs: Abnormal Lab Results - Last 24 Hours (Table) 08/27/21 08/27/21 08/27/21 Range/Units 09:58 11:39 17:12 Chloride 108 H (98-107) mmol/L Carbon Dioxide 18 L (22-30) mmol/L BUN 108 H* (9-20) mg/dL Creatinine 3.60 H (0.66-1.25) mg/dL Glucose 227 H (74-99) mg/dL POC Glucose (mg/dL) 262 H 315 H (75-99) mg/dL Calcium 7.7 L (8.4-10.2) mg/dL Total Protein 5.1 L (6.3-8.2) g/dL Albumin 2.4 L (3.5-5.0) g/dL 08/27/21 08/28/21 08/28/21 Range/Units 20:16 05:48 05:51 Chloride 110 H (98-107) mmol/L Carbon Dioxide 19 L (22-30) mmol/L BUN 107 H* (9-20) mg/dL Creatinine 3.86 H (0.66-1.25) mg/dL Glucose 118 H (74-99) mg/dL POC Glucose (mg/dL) 302 H 133 H (75-99) mg/dL Calcium 7.9 L (8.4-10.2) mg/dL Total Protein (6.3-8.2) g/dL Albumin (3.5-5.0) g/dL Microbiology - Last 24 Hours (Table) 08/26/21 11:46 Blood Culture - Preliminary Blood No Growth after 24 hours 08/26/21 11:46 Blood Culture - Preliminary Blood No Growth after 24 hours
[2021-08-28 16:47] LABS: Glucose,Whole Blood 207 mg/dL (75-99)
--- NOTE | 2021-08-28 16:59 | ECHOF ---
Referral Reason:Heart Failure MEASUREMENTS -------- HEIGHT: 180.3 cm WEIGHT: 86.6 kg BP: IVSd: 0.9 cm (0.6 - 1.1) LVIDd: 4.8 cm (3.9 - 5.3) LVPWd: 1.2 cm (0.6 - 1.1) IVSs: 1.1 cm LVIDs: 2.9 cm LVPWs: 2.2 cm LAESV Index (A-L): 53.56 ml/m Ao Diam: 3.6 cm (2.0 - 3.7) AV Cusp: 2.3 cm (1.5 - 2.6) LA Diam: 4.1 cm (2.7 - 3.8) MV EXCURSION: 23.254 mm (> 18.000) MV EF SLOPE: 139 mm/s (70 - 150) EPSS: 0.9 cm MV E Santhosh: 1.31 m/s MV DecT: 315 ms MV A Santhosh: 0.70 m/s MV E/A Ratio: 1.87 RAP: 5.00 mmHg RVSP: 50.34 mmHg FINDINGS -------- This was a technically good study. The left ventricular size is normal. Left ventricular wall thickness is normal. Overall left vent ricular systolic function is normal with, an EF between 55 - 60 %. There is paradoxical/dysynergic septal motion consistent with post-operative status. Increased LAP Grade 2 Diastolic Dysfunction. The right ventricle is normal in size. LA is severely dilated >40 ml/m2 The right atrial size is normal. The aortic valve is trileaflet and appears structurally normal. The mitral valve is normal. [id number] mitral regurgitation is present. The tricuspid valve appears structurally normal. Mild tricuspid regurgitation present. There is m oderate pulmonary hypertension. The right ventricular systolic pressure, as measured by Doppler, is 50.34mmHg. There is no pulmonic regurgitation present. The aortic root size is normal. IVC Not well visulized. There is no pericardial effusion. CONCLUSIONS -------- 1. The left ventricular size is normal. 2. Left ventricular wall thickness is normal. 3. Overall left ventricular systolic function is normal with, an EF between 55 - 60 %. 4. There is paradoxical/dysynergic septal motion consistent with post-operative status? 5. Increased LAP Grade 2 Diastolic Dysfunction. 6. LA is severely dilated >40 ml/m2 7. Wczc-hb-[id number] mitral regurgitation is present. 8. Mild tricuspid regurgitation present. 9. There is moderate pulmonary hypertension. 10. The right ventricular systolic pressure, as measured by Doppler, is 50.34mmHg. 11. There is no pericardial effusion. ELECTROTYPER: Alyssia Turner RDCS
[2021-08-28] MEDS ORDERED: INSULIN ASPART (NovoLOG) 100 UNIT/ML VIAL SQ SCH (17:30)
[2021-08-28 21:02] LABS: Glucose,Whole Blood 167 mg/dL (75-99)
[2021-08-28] MEDS: HEPARIN SODIUM,PORCINE/PF 5,000 UNIT/0.5 ML SYRINGE SQ SCH (22:26)
[2021-08-28] MEDS: INSULIN DETEMIR (LEVEMIR) 100 UNIT/ML SYR SQ SCH (22:32)
[2021-08-29] MEDS: PIPERACILLIN-TAZOBACTAM 3.375 GM in SODIUM CHLORIDE 0.9% 100 ML IVPB SCH ×2 (05:29→18:23)
[2021-08-29 06:09] LABS: Glucose,Whole Blood 188 mg/dL (75-99)
[2021-08-29] MEDS: carvediloL 12.5 MG TAB PO SCH ×2 (06:56→17:06)
[2021-08-29] MEDS: INSULIN ASPART (NovoLOG) 100 UNIT/ML VIAL SQ SCH ×4 (06:56→20:39)
[2021-08-29] MEDS: REPAGLINIDE 1 MG TAB PO SCH ×3 (07:04→17:06)
--- NOTE | 2021-08-29 08:12 | XR ---
EXAMINATION TYPE: XR chest 2V DATE OF EXAM: 08/29/2021 COMPARISON: 08/27/2021 TECHNIQUE: PA and lateral views submitted. HISTORY: Abnormal x-ray FINDINGS: Heart is enlarged and there is postoperative change with left-sided pleural effusion and/or pleural t hickening. Diffuse interstitial pattern with basilar subsegmental consolidation. Tiny right pleural e ffusion. Underlying COPD suspected. IMPRESSION: 1. COPD correlate for CHF otherwise consider diffuse pneumonia. No significant interval change.
[2021-08-29] MEDS: ASPIRIN 81 MG PO SCH (08:34)
[2021-08-29] MEDS: SODIUM BICARBONATE TAB 650 MG TAB PO SCH ×2 (08:34→20:38)
[2021-08-29] MEDS: ATORVASTATIN 80 MG TAB PO SCH (08:34)
[2021-08-29] MEDS: hydrALAZINE HCL 25 MG TAB PO SCH ×2 (08:34→20:39)
[2021-08-29] MEDS: HEPARIN SODIUM,PORCINE/PF 5,000 UNIT/0.5 ML SYRINGE SQ SCH (08:34)
[2021-08-29 09:14] LABS: Calcium 8.1 mg/dL (8.4-10.2); Potassium 4.2 mmol/L (3.5-5.1)
--- NOTE | 2021-08-29 11:33 | P.PN ---
Subjective Progress Note Date: 08/29/21 HISTORY OF PRESENT ILLNESS: This is a 71-year-old male who sees Dr. Xiong in the office. Patient is admitted to the hospital secondary to CHF, shortness of breath, and atrial fibrillation. Patient had an echocardiogram completed in July 2021 revealing ejection fraction 55-60%. Repeat echocardiogram is pending. Patient currently denies chest pain or pressure. He denies shortness of breath. Telemetry reveals sinus mechanism. Patient is not on anticoagulation secondary to a history of GI bleed per internal medicine's notes. The patient received a one-time dose of Lasix per nephrology. Creatinine today 3.86. 08/29/2021 Patient examined this morning at the bedside. He denies chest pain or pressure. Denies shortness of breath. He remains on 6L NC with oxygen saturations greater than 92%. Telemetry reveals sinus mechanism. Creatinine 4.04. Nephrology following. Repeat echo revealed EF 55-60%. PHYSICAL EXAM: VITAL SIGNS: Reviewed. GENERAL: Well-developed in no acute distress. NECK: Supple. No JVD or thyromegaly LUNGS: Respirations even and unlabored. Lungs essentially clear to auscultation bilaterally. HEART: Regular rate and rhythm. S1 and S2 heard. EXTREMITIES: Normal range of motion. No clubbing or cyanosis. Peripheral pulses intact. No lower extremity edema ASSESSMENT: Dyspnea Pneumonia Acute exacerbation of chronic diastolic congestive heart failure, ejection fraction 55-60% New-onset paroxysmal atrial for ablation, currently maintaining sinus mechanism History of GI bleed Metastatic melanoma with metastasis to the lung and lymph nodes Recurrent pleural effusion with pleural cath Diabetes Hypertension Hyperlipidemia History of Covid Coronary artery disease with previous CABG and PCI Acute on chronic kidney disease History of DVT PLAN: No anticoagulation as patient has a hx of GIB Continue current cardiac medications Monitor kidney function. Diuretics per nephrology Further recommendations pending patient course Nurse practitioner note has been reviewed by physician. Signing provider agrees with the documented findings, assessment, and plan of care. Objective - Vital Signs Vital signs: Vital Signs Temp 97.4 F L 08/29/21 08:39 Pulse 66 08/29/21 08:39 Resp 18 08/29/21 08:39 BP 133/68 08/29/21 08:39 Pulse Ox 92 L 08/29/21 08:39 Intake & Output 08/28/21 08/29/21 08/29/21 18:59 06:59 18:59 Intake Total 560 10 Output Total 750 600 Balance -190 -590 Weight 87 kg 86 kg Intake: IV 10 Invasive Line 1 10 Oral 560 Output: Urine 750 600 Other: Voiding Method Indwelling Catheter Indwelling Catheter Indwelling Catheter - Labs CBC & Chem 7: 08/27/21 09:58 08/29/21 06:52 Labs: Abnormal Lab Results - Last 24 Hours (Table) 08/27/21 08/28/21 08/28/21 Range/Units 09:58 11:50 16:43 Chloride (98-107) mmol/L Carbon Dioxide (22-30) mmol/L BUN (9-20) mg/dL Creatinine (0.66-1.25) mg/dL Glucose (74-99) mg/dL POC Glucose (mg/dL) 324 H 207 H (75-99) mg/dL Hemoglobin A1c 8.8 H (4.0-6.0) % Calcium (8.4-10.2) mg/dL 08/28/21 08/29/21 08/29/21 Range/Units 21:00 06:06 06:52 Chloride 109 H (98-107) mmol/L Carbon Dioxide 19 L (22-30) mmol/L BUN 103 H* (9-20) mg/dL Creatinine 4.04 H (0.66-1.25) mg/dL Glucose 172 H (74-99) mg/dL POC Glucose (mg/dL) 167 H 188 H (75-99) mg/dL Hemoglobin A1c (4.0-6.0) % Calcium 8.1 L (8.4-10.2) mg/dL Microbiology - Last 24 Hours (Table) 08/26/21 11:46 Blood Culture - Preliminary Blood No Growth after 48 hours 08/26/21 11:46 Blood Culture - Preliminary Blood No Growth after 48 hours
[2021-08-29] MEDS ORDERED: VANCOMYCIN 1,500 MG in SODIUM CHLORIDE 0.9% 250 ML IVPB ONE (12:00)
[2021-08-29 12:05] LABS: Glucose,Whole Blood 249 mg/dL (75-99)
[2021-08-29] MEDS: SODIUM CHLORIDE 0.9% 1,000 ML IV SCH (12:13)
--- NOTE | 2021-08-29 12:34 | US ---
EXAMINATION TYPE: US venous doppler duplex LE RT DATE OF EXAM: 08/29/2021 12:06 PM COMPARISON: 08/16/2018 CLINICAL HISTORY: edema, eval for DVT. Right leg swelling SIDE PERFORMED: Right TECHNIQUE: The lower extremity deep venous system is examined utilizing real time linear array sonog rikki with graded compression, doppler sonography and color-flow sonography. VESSELS IMAGED: Common Femoral Vein Deep Femoral Vein Greater Saphenous Vein * Femoral Vein Popliteal Vein Small Saphenous Vein * Proximal Calf Veins (* superficial vessels) Right Leg: Probable thrombus of indeterminant age with left popliteal vein and proximal calf veins IMPRESSION: Lack of compression and thrombus within the left popliteal vein compatible with DVT altho ugh acute DVT cannot be excluded as does appear to be improved from the prior exam of 2018 suggesting chronic component.
--- NOTE | 2021-08-29 14:53 | XR ---
EXAMINATION TYPE: XR chest 2V DATE OF EXAM: 08/29/2021 COMPARISON: 08/29/2021 TECHNIQUE: PA and lateral views submitted. HISTORY: Cough FINDINGS: Heart is enlarged and there is postoperative change with bilateral consolidation and left-sided pleur al effusion. Arthropathy of the shoulder. Interstitial pattern noted. IMPRESSION: 1. Correlate for CHF underlying pneumonia not excluded. Findings stable.
--- NOTE | 2021-08-29 15:11 | PN ---
PROGRESS NOTE Patient is seen for followup for acute kidney injury. Patient has recently been diuresed. His serum creatinine continues to climb. It is up to 4.0 today. BUN is 103. Diuretics are currently on hold. No significant complaints today. Patient is having Dopplers of his lower extremities. On examination today, blood pressure 134/73, heart rate 63 per minute. He is afebrile. EXAMINATION OF THE HEART: S1 and S2. EXAMINATION OF LUNGS: Bilateral breath sounds are heard. Abdomen is soft, non-tender. EXAMINATION OF LOWER EXTREMITIES: No significant edema noted. METEOROLOGICAL ENGINEER EXAM: Grossly intact. Labs show sodium 138, potassium 4.2, chloride 109. CO2 is 19 BUN 103, serum creatinine 4.0. ASSESSMENT: 1. Acute kidney injury; serum creatinine slowly increasing, possibly prerenal. Will add gentle IV hydration. Vancomycin has been discontinued. Patient has an indwelling Albright catheter. Blood pressure was on the lower side. Norvasc has been discontinued. 2. 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 Baseline creatinine about 2.5. 3. Acute on chronic diastolic congestive heart failure with moderate mitral regurgitation, pulmonary hypertension. 4. Volume overload, currently improved. 5. Malignant melanoma with metastasis. 6. Type 2 diabetes. 7. Pneumonia, maintained on antibiotics; COVID negative. 8. Metabolic acidosis associated with acute kidney injury, now improved. PLAN: Continue off of Norvasc. Add gentle IV hydration. Repeat labs in a.m. Avoid hypotension. Avoid any other nephrotoxic agents. MMODL / IJN: [id number] /
--- NOTE | 2021-08-29 15:35 | P.PN ---
Subjective Progress Note Date: 08/29/21 History of present illness This is a 70-year-old gentleman patient of Dr. Wyatt Pereira. He has underlying history of diabetes mellitus type 2, CAD with prior CABG, CK D stage III, hypertension, history of melanoma was in remission until March when patient was noted to have metastatic melanoma with metastases to the lung with enlarged lymph nodes currently on immunotherapy. Patient had recent covid infection in September, with acute kidney injury secondary to covid infection September 2020 and follow Ernie since then. Patient was again admitted in November 09 for 2 days for acute diastolic congestive heart failure secondary to withdrawal off diuretics due to worsening kidney function. He was seen in the ER in March 20 for shortness of breath secondary to metastatic melanoma to his lungs with bilateral pleural effusions. Patient has been getting frequent thoracentesis a nd underwent pigtail catheter placement in the left chest in April. He was initially getting fluid removed up to 1 L every day but currently patient is getting fluid removed up to 550 mL once a week, last one 2 days ago. Patient has noticed poor appetite and increased shortness of breath for the past 1 week. He had his Covid booster 6 days ago following which he went to [facility] to have a brain MRI and CT. He received his immunotherapy 3 days ago. He has not recovered since then. His noticed poor appetite increased weakness associated with cough and shortness of breath. Patient was found to have low blood sugar in the low 30s which came back to normal. EKG demonstrated atrial fibrillation In the ER patient is noted to be hypoxic and was placed on 5 L of high flow still saturating at 89%. Otherwise patient is afebrile pulse 66 respiratory rate 18 blood pressure 127/58. He had a leukocytosis of 11, hemoglobin 9.9 platelet 225, BUN 109 creatinine 3.59. Sodium 139 potassium 3.4 chloride 110 bicarb 18 [place] [id number] Chest x-ray on 08/26 suggests cardiomegaly with small left pleural effusion R [id number] interstitial edema concerning for CHF exacerbation was noted. CT chest was obtained that showed bilateral pleural effusion with basilar pulmonary airspace infiltrates and atelectasis significantly increased compared to old exam with cardiomegaly and mediastinotomy edema but the similar to old exam. 08/28: Patient has been seen and followed by cardiology with recommendations to continue current medications. Echocardiogram has been obtained and report is pending. Patient is also followed by nephrology with recommendations to continue diuretics, discontinue Norvasc. Repeat chest x-ray reveals stable bibasilar right greater than left patchy and interstitial opacities with stable moderate cardiomegaly, trace left pleural effusion may be on the basis of mult ifocal pneumonia/atelectasis and/or heart failure. No pneumothorax. Patient has been afebrile, heart rate 62, blood pressure 126/66, pulse ox 94% on 6 L nasal cannula. Plan is to wean oxygen down. Repeat blood work reveals sodium 140, potassium 3.7, chloride 110, CO2 19, BUN 107, creatinine 3.86. Blood sugars are running mostly in the 300s this morning 133. Prandin 1 mg with meals added and Levemir increased to home dose of 35 units at bedtime. Patient has Albright catheter in place which we will have removed today and bladder scan postvoid. Home oxygen assessment to be done. 08/29: Patient is seen today on the cardiac stepdown unit. He is followed by nephrology with recommendations to maintain Albright catheter, avoid hypotension, nephro toxic agents and continue IV fluids at 50 ML's per hour. We have discontinued vancomycin. Patient has also been seen by cardiology. Patient is currently on Zosyn. VQ scan ordered to rule out pulmonary embolism due to ongoing hypoxia. Patient is requiring 6 L nasal cannula with pulse ox of 92%. He's been afebrile, heart rate 66, blood pressure 133/68. Repeat blood work reveals sodium 138, potassium 4.2, chloride 109, CO2 19, BUN 103 and creatinine 4.04. Blood sugars are running between 167 and 249.. Ultrasound of the right lower extremity revealed DVT but could not be determined if this was acute and suggest chronic component. Chest x-ray reveals heart failure underlying pneumonia not excluded. ROS Constitutional: Endorses chills, Denies fever, endorses lethargy, endorses malaise, Denies poor appetite, endorses weakness, Denies weight loss Eyes: denies decreased vision, denies diplopia, denies discharge, denies pain Ears: deny: decreased hearing Ears, nose, mouth and throat: Denies dental pain, Denies headache, Denies nasal discharge, Denies nose pain Cardiovascular: Denies chest pain, endorses decreased exercise tolerance, endorses bilateral lower extremity edema, Denies high blood pressure, Denies irregular heart beat, Denies palpitations, Denies paroxysmal nocturnal dyspnea, Denies rapid heart beat, reports shortness of breath-improved Respiratory: Denies congestion, endorses dry cough, Denies cough with sputum, endorses dyspnea, Denies home oxygen, Denies wheezing Gastrointestinal: Denies abdominal pain, Denies change in bowel habits, Denies coffee ground emesis, Denies early satiety, Denies excessive gas, Denies heartburn, Denies hematemesis, Denies hematochezia, Denies loss of appetite, Denies nausea, Denies vomiting Genitourinary: Denies dysuria, Denies flank pain, Denies kidney stones, Denies menorrhagia, Denies urgency, Denies urinary frequency Musculoskeletal: Endorses gait dysfunction, Denies limitation of motion, Denies morning stiffness, Denies muscle cramps Integumentary: Denies rash, Denies wounds, Denies brittle nails, Denies change in hair/nails, Denies darkening of skin Neurological: Denies balance difficulties, Denies change in speech, Denies double vision, Denies gait dysfunction, Denies loss of vision, Denies motor disturbance, Denies numbness, Denies paralysis, Denies paresthesias, Denies seizures Psychiatric: Denies anxiety, Denies depression Endocrine: Denies excessive sweating, Denies excessive thirst, noted elevated blood sugars, Denies palpitations Hematologic/Lymphatic: Denies easy bruising, Denies lymphadenopathy Physical exam - Constitutional General appearance: cooperative, no acute distress, on 6 L high flow cannula - EENT Eyes: anicteric sclerae, PERRLA, normal appearance ENT: hearing grossly normal - Neck Neck: no lymphadenopathy, normal ROM, no other, no rigidity, no stridor, no thyromegaly - Respiratory Respiratory: bilateral: Decreased air entry with the back crackles involving the left upper and mid lobe with decreased air entry involving the right lung. Dull to percussion. No use of sensory muscles, catheter in the left pleural cavity , no drainage noted - Cardiovascular Rhythm: Irregularly irregular Heart sounds: normal: S1, S2 Abnormal Heart Sounds: no systolic murmur, no diastolic murmur, no rub, no S3 Gallop, no S4 Gallop, no click, no other - Gastrointestinal General gastrointestinal: normal bowel sounds, soft nontender - Integumentary Integumentary: Bilateral lower extremity edema left worse than the right - Neurologic Neurologic: No sensory or motor deficit - Musculoskeletal Musculoskeletal: gait not assessed, strength equal bilaterally - Psychiatric Psychiatric: A&O x's 3, appropriate affect Assessment and plan Acute diastolic heart failure, ejection fraction 55-60% with severe concentric left ventricle hypertrophy and moderate to severe pulmonary hypertension moderate tricuspid regurgitation on October 2020 -Status post Lasix IV - Input and output monitoring - Daily weights - Cardiology consult appreciated Acute hypoxic respiratory failure secondary to CHF exacerbation and bilateral pleural effusions, pneumonia ruled out -Discontinue vancomycin. Continue Zosyn - Covid negative - Continue DuoNeb as needed for shortness of breath - Lasix daily by nephrology - Sputum culture - Mucinex 1200 twice a day Acute kidney injury secondary to ATN with cardiorenal syndrome on chronic kidney disease stage IV secondary to diabetic kidney disease with baseline creatinine 2.5 -avoid nephrotoxic agents - Lasix dose by nephrology -Continue Albright catheter - Nephrology consult appreciated - Hold oral Lasix New onset paroxysmal atrial fibrillation. - Continue Coreg 12.5 twice a day -No anticoagulation due to history of GI bleed Metastatic melanoma with metastasis to the lung and lymph nodes enlargement. -On immunotherapy - Follows Dr. Adamson Recurrent pleural effusion With pleural cath involving the left pleural cavity unclear if related to melanoma - CT with b/l plueral effusion - Since April 2021, last thoracentesis on 2 days ago was 550 output - Thoracentesis few days to week - Follows cardiothoracic surgeon at the [facility] Hypoglycemia with history Diabetes mellitus type 2, hypoglycemia resolved - Levemir resumed at home dose of 35 units at bedtime - Prandin 1 mg with meals added - Insulin sliding scale - A1c 8.8 - Glucose checked before meals and at bedtime CAD with prior CABG in the past, status post occlusive disease in the LAD, and diagonal branch - followed by cardiology - Continue aspirin, Coreg, Lipitor 80 mg daily Covid infection 19 on 10/18 - Received Covid booster 1 week Uncontrolled hypertension -And tinea Correctol 0.5 mg twice daily, hydralazine 25 mg twice daily, Hyperlipidemia - Bradycardia milligrams History of GI bleed, none currently, was previously on Eliquis. Patient on aspirin only DVT prophylaxis - Heparin every 12 CODE STATUS full code DISCHARGE PLAN TBD. Consult PT and OT. Impression and plan of care have been directed as dictated by the signing physician. Marry Andre nurse practitioner acting as scribe for signing physician. Objective - Vital Signs Vital signs: Vital Signs Temp 97.4 F L 08/29/21 08:39 Pulse 66 08/29/21 08:39 Resp 18 08/29/21 08:39 BP 133/68 08/29/21 08:39 Pulse Ox 92 L 08/29/21 08:39 Intake & Output 08/28/21 08/29/21 08/29/21 18:59 06:59 18:59 Intake Total 560 10 Output Total 750 600 Balance -190 -590 Weight 87 kg 86 kg Intake: IV 10 Invasive Line 1 10 Oral 560 Output: Urine 750 600 Other: Voiding Method Indwelling Catheter Indwelling Catheter Indwelling Catheter - Labs CBC & Chem 7: 08/27/21 09:58 08/29/21 06:52 Labs: Abnormal Lab Results - Last 24 Hours (Table) 08/27/21 08/28/21 08/28/21 Range/Units 09:58 11:50 16:43 Chloride (98-107) mmol/L Carbon Dioxide (22-30) mmol/L BUN (9-20) mg/dL Creatinine (0.66-1.25) mg/dL Glucose (74-99) mg/dL POC Glucose (mg/dL) 324 H 207 H (75-99) mg/dL Hemoglobin A1c 8.8 H (4.0-6.0) % Calcium (8.4-10.2) mg/dL 08/28/21 08/29/21 08/29/21 Range/Units 21:00 06:06 06:52 Chloride 109 H (98-107) mmol/L Carbon Dioxide 19 L (22-30) mmol/L BUN 103 H* (9-20) mg/dL Creatinine 4.04 H (0.66-1.25) mg/dL Glucose 172 H (74-99) mg/dL POC Glucose (mg/dL) 167 H 188 H (75-99) mg/dL Hemoglobin A1c (4.0-6.0) % Calcium 8.1 L (8.4-10.2) mg/dL Microbiology - Last 24 Hours (Table) 08/26/21 11:46 Blood Culture - Preliminary Blood No Growth after 48 hours 08/26/21 11:46 Blood Culture - Preliminary Blood No Growth after 48 hours
--- NOTE | 2021-08-29 16:09 | NM ---
EXAMINATION TYPE: NM pul vent and perfuse DATE OF EXAM: 08/29/2021 COMPARISON: 08/29/2021 HISTORY: N 30 TECHNIQUE: Utilizing inhalation of 65.5 mCi Tc 99m DTPA aerosol and intravenous injection of 4.8 mCi of Tc 99m MAA, ventilation and perfusion images are acquired post injection in multiple projections. FINDINGS: There is a large mismatch defect involving the right apex and right upper lobe with large segmental m ismatched defect. Some clumping of radiotracer centrally within the bronchi on ventilation images. IMPRESSION: High probability for pulmonary embolus.
[2021-08-29] MEDS ORDERED: HEPARIN SODIUM 1,000 UN/ML (10ML VL) IV PRN (16:34)
[2021-08-29] MEDS ORDERED: HEPARIN SODIUM 1,000 UN/ML (10ML VL) IV ONE (16:34)
[2021-08-29 16:56] LABS: Glucose,Whole Blood 227 mg/dL (75-99)
[2021-08-29] MEDS: HEPARIN SOD,PORK IN 0.45% NACL 25,000 UNIT in 0.45% NACL 1 250ML.BAG IV SCH (17:46)
[2021-08-29 19:50] LABS: Glucose,Whole Blood 213 mg/dL (75-99)
[2021-08-29] MEDS: INSULIN DETEMIR (LEVEMIR) 100 UNIT/ML SYR SQ SCH (20:39)
[2021-08-30 05:04] LABS: Glucose,Whole Blood 39 mg/dL (75-99)
[2021-08-30 05:19] LABS: Glucose,Whole Blood 41 mg/dL (75-99)
[2021-08-30 05:33] LABS: Glucose,Whole Blood 49 mg/dL (75-99)
[2021-08-30] MEDS ORDERED: DEXTROSE 50% SYRINGE 50 ML IVP ONE (05:33)
[2021-08-30] MEDS: SODIUM CHLORIDE 0.9% 1,000 ML IV SCH (05:48)
[2021-08-30] MEDS: HEPARIN SOD,PORK IN 0.45% NACL 25,000 UNIT in 0.45% NACL 1 250ML.BAG IV SCH (05:48)
[2021-08-30] MEDS: PIPERACILLIN-TAZOBACTAM 3.375 GM in SODIUM CHLORIDE 0.9% 100 ML IVPB SCH (05:48)
[2021-08-30 05:50] LABS: Glucose,Whole Blood 139 mg/dL (75-99)
[2021-08-30] MEDS: INSULIN ASPART (NovoLOG) 100 UNIT/ML VIAL SQ SCH ×4 (05:51→17:16)
[2021-08-30] MEDS: REPAGLINIDE 1 MG TAB PO SCH ×3 (06:34→17:16)
[2021-08-30] MEDS: carvediloL 12.5 MG TAB PO SCH ×2 (06:34→17:17)
[2021-08-30] MEDS: SODIUM BICARBONATE TAB 650 MG TAB PO SCH ×2 (10:10→20:00)
[2021-08-30] MEDS: hydrALAZINE HCL 25 MG TAB PO SCH ×2 (10:10→20:00)
[2021-08-30] MEDS: ASPIRIN 81 MG PO SCH (10:10)
[2021-08-30] MEDS: ATORVASTATIN 80 MG TAB PO SCH (10:10)
--- NOTE | 2021-08-30 10:31 | P.PN ---
Subjective Progress Note Date: 08/30/21 HISTORY OF PRESENT ILLNESS: This is a 71-year-old male who sees Dr. Xiong in the office. Patient is admitted to the hospital secondary to CHF, shortness of breath, and atrial fibrillation. Patient had an echocardiogram completed in July 2021 revealing ejection fraction 55-60%. Repeat echocardiogram is pending. Patient currently denies chest pain or pressure. He denies shortness of breath. Telemetry reveals sinus mechanism. Patient is not on anticoagulation secondary to a history of GI bleed per internal medicine's notes. The patient received a one-time dose of Lasix per nephrology. Creatinine today 3.86. 08/29/2021 Patient examined this morning at the bedside. He denies chest pain or pressure. Denies shortness of breath. He remains on 6L NC with oxygen saturations greater than 92%. Telemetry reveals sinus mechanism. Creatinine 4.04. Nephrology following. Repeat echo revealed EF 55-60%. 08/30/2021 Patient examined this morning at the bedside. He denies chest pain or pressure. Denies shortness of breath. He remains on 6L NC with oxygen saturations greater than 92%. Blood pressure 144/65. Patient underwent right lower extremity Doppler revealing lack of compression and thrombus within the left popliteal vein compatible with DVT although acute DVT cannot be excluded as does appear to be improved from prior exam of 2018 suggesting chronic component. VQ scan performed revealing high probability for pulmonary embolism. Patient was started on IV heparin per internal medicine PHYSICAL EXAM: VITAL SIGNS: Reviewed. GENERAL: Well-developed in no acute distress. NECK: Supple. No JVD or thyromegaly LUNGS: Respirations even and unlabored. Lungs diminished to auscultation bilaterally. HEART: Regular rate and rhythm. S1 and S2 heard. EXTREMITIES: Normal range of motion. No clubbing or cyanosis. Peripheral pulses intact. Trace lower extremity edema ASSESSMENT: Dyspnea Pneumonia Pulmonary embolism Acute exacerbation of chronic diastolic congestive heart failure, ejection fraction 55-60% New-onset paroxysmal atrial fibrillation, currently maintaining sinus mechanism History of GI bleed Metastatic melanoma with metastasis to the lung and lymph nodes Recurrent pleural effusion with pleural cath Diabetes Hypertension Hyperlipidemia History of Covid Coronary artery disease with previous CABG and PCI Acute on chronic kidney disease History of DVT PLAN: Patient previously not on anticoagulation for afib secondary to history of GI bleeding Patient placed on IV heparin for PE per internal medicine. Will defer oral anticoagulation of PE to medicine team. Continue current cardiac medications Monitor kidney function. Diuretic management per nephrology: currently off diuretics Further recommendations pending patient course Nurse practitioner note has been reviewed by physician. Signing provider agrees with the documented findings, assessment, and plan of care. Objective - Vital Signs Vital signs: Vital Signs Temp 97.3 F L 08/30/21 08:00 Pulse 65 08/30/21 08:00 Resp 18 08/30/21 08:00 BP 144/65 08/30/21 08:00 Pulse Ox 94 L 08/30/21 08:00 Intake & Output 08/29/21 08/30/21 08/30/21 18:59 06:59 18:59 Intake Total 605 679.224 240 Output Total 650 350 250 Balance -45 329.224 -10 Weight 83.5 kg Intake: IV 100 Piperacillin-Tazobactam 3 100 .375 gm In Sodium Chloride 0.9% 100 ml @ 25 mls/hr IVPB Q12H [facility] Rx# :[id number] Intake, IV Titration 579.224 Amount Heparin Sod,Pork in 0.45% 179.224 NaCl 25,000 unit In 0.45 % NaCl 1 250ml.bag @ 18 UNITS/KG/HR 15.48 mls/hr IV .[id number] [facility] Rx#: [id number] Sodium Chloride 0.9% 1, 400 000 ml @ 50 mls/hr IV . Q20H [facility] Rx#:[id number] Oral 605 240 Output: Urine 650 350 250 Other: Voiding Method Indwelling Catheter Indwelling Catheter Indwelling Catheter - Labs CBC & Chem 7: 08/27/21 09:58 08/29/21 06:52 Labs: Abnormal Lab Results - Last 24 Hours (Table) 08/29/21 08/29/21 08/29/21 Range/Units 12:03 16:55 19:49 APTT (22.0-30.0) sec POC Glucose (mg/dL) 249 H 227 H 213 H (75-99) mg/dL 08/30/21 08/30/21 08/30/21 Range/Units 00:48 05:01 05:17 APTT 82.4 H (22.0-30.0) sec POC Glucose (mg/dL) 39 L 41 L (75-99) mg/dL 08/30/21 08/30/21 Range/Units 05:31 05:46 APTT (22.0-30.0) sec POC Glucose (mg/dL) 49 L 139 H (75-99) mg/dL Microbiology - Last 24 Hours (Table) 08/26/21 11:46 Blood Culture - Preliminary Blood No Growth after 72 hours 08/26/21 11:46 Blood Culture - Preliminary Blood No Growth after 72 hours
[2021-08-30 11:06] LABS: Basophils % (A) 0 %; Eosinophils # (A) 0.2 k/uL (0-0.7); Eosinophils % (A) 2 %; HCT 23.3 % (39.0-53.0); Lymphocytes # (A) 0.3 k/uL (1.0-4.8); Lymphocytes % (A) 4 %; MCH 28.4 pg (25.0-35.0); MCHC 34.2 g/dL (31.0-37.0); MCV 82.9 fL (80.0-100.0); Mean Platelet Volume 7.8; Monocytes # (A) 0.5 k/uL (0-1.0); Monocytes % (A) 6 %; Neutrophils # (A) 7.4 k/uL (1.3-7.7); Neutrophils % (A) 87 %; Platelet Count 226 k/uL (150-450); Poikilocytosis Slight; WBC 8.5 k/uL (3.8-10.6)
[2021-08-30 12:02] LABS: Glucose,Whole Blood 191 mg/dL (75-99)
[2021-08-30 12:16] LABS: Albumin 2.7 g/dL (3.5-5.0); Calcium 8.5 mg/dL (8.4-10.2); Potassium 4.4 mmol/L (3.5-5.1); Total Bilirubin 0.6 mg/dL (0.2-1.3); Total Protein 5.6 g/dL (6.3-8.2)
--- NOTE | 2021-08-30 12:50 | P.PN ---
Subjective Progress Note Date: 08/30/21 History of present illness This is a 70-year-old gentleman patient of Dr. Wyatt Pereira. He has underlying history of diabetes mellitus type 2, CAD with prior CABG, CK D stage III, hypertension, history of melanoma was in remission until March when patient was noted to have metastatic melanoma with metastases to the lung with enlarged lymph nodes currently on immunotherapy. Patient had recent covid infection in September, with acute kidney injury secondary to covid infection September 2020 and follow Ernie since then. Patient was again admitted in November 09 for 2 days for acute diastolic congestive heart failure secondary to withdrawal off diuretics due to worsening kidney function. He was seen in the ER in March 20 for shortness of breath secondary to metastatic melanoma to his lungs with bilateral pleural effusions. Patient has been getting frequent thoracentesis a nd underwent pigtail catheter placement in the left chest in April. He was initially getting fluid removed up to 1 L every day but currently patient is getting fluid removed up to 550 mL once a week, last one 2 days ago. Patient has noticed poor appetite and increased shortness of breath for the past 1 week. He had his Covid booster 6 days ago following which he went to [facility] to have a brain MRI and CT. He received his immunotherapy 3 days ago. He has not recovered since then. His noticed poor appetite increased weakness associated with cough and shortness of breath. Patient was found to have low blood sugar in the low 30s which came back to normal. EKG demonstrated atrial fibrillation In the ER patient is noted to be hypoxic and was placed on 5 L of high flow still saturating at 89%. Otherwise patient is afebrile pulse 66 respiratory rate 18 blood pressure 127/58. He had a leukocytosis of 11, hemoglobin 9.9 platelet 225, BUN 109 creatinine 3.59. Sodium 139 potassium 3.4 chloride 110 [place]icarb 18 [place] [id number] Chest x-ray on 08/26 suggests cardiomegaly with small left pleural effusion R [id number] interstitial edema concerning for CHF exacerbation was noted. CT chest was obtained that showed bilateral pleural effusion with basilar pulmonary airspace infiltrates and atelectasis significantly increased compared to old exam with cardiomegaly and mediastinotomy edema but the similar to old exam. 08/28: Patient has been seen and followed by cardiology with recommendations to continue current medications. Echocardiogram has been obtained and report is pending. Patient is also followed by nephrology with recommendations to continue diuretics, discontinue Norvasc. Repeat chest x-ray reveals stable bibasilar right greater than left patchy and interstitial opacities with stable moderate cardiomegaly, trace left pleural effusion may be on the basis of mult ifocal pneumonia/atelectasis and/or heart failure. No pneumothorax. Patient has been afebrile, heart rate 62, blood pressure 126/66, pulse ox 94% on 6 L nasal cannula. Plan is to wean oxygen down. Repeat blood work reveals sodium 140, potassium 3.7, chloride 110, CO2 19, BUN 107, creatinine 3.86. Blood sugars are running mostly in the 300s this morning 133. Prandin 1 mg with meals added and Levemir increased to home dose of 35 units at bedtime. Patient has Albright catheter in place which we will have removed today and bladder scan postvoid. Home oxygen assessment to be done. 08/29: Patient is seen today on the cardiac stepdown unit. He is followed by nephrology with recommendations to maintain Albright catheter, avoid hypotension, nephro toxic agents and continue IV fluids at 50 ML's per hour. We have discontinued vancomycin. Patient has also been seen by cardiology. Patient is currently on Zosyn. VQ scan ordered to rule out pulmonary embolism due to ongoing hypoxia. Patient is requiring 6 L nasal cannula with pulse ox of 92%. He's been afebrile, heart rate 66, blood pressure 133/68. Repeat blood work reveals sodium 138, potassium 4.2, chloride 109, CO2 19, BUN 103 and creatinine 4.04. Blood sugars are running between 167 and 249.. Ultrasound of the right lower extremity revealed DVT but could not be determined if this was acute and suggest chronic component. Chest x-ray reveals heart failure underlying pneumonia not excluded. 08/30: She is currently on IV heparin for pulmonary embolism.patient does have history of lower extremity DVT which he states he completed course of anticoagulation. Discussed case with oncology and we will plan for eliquis, prescription is been sent to his pharmacy. Pneumonia has been ruled out and antibiotics will be discontinued. Patient has Albright catheter in place which will be discontinued today if okay with nephrology and check postvoid residual. The blood work reveals WBC 8.5, hemoglobin 8.0. BUN 107, creatinine 4.2, CO2 19. Patient has been seen by PT and OT with recommendations for home. ROS Constitutional: Denies chills, Denies fever, endorses lethargy, endorses malaise, Denies poor appetite, endorses weakness, Denies weight loss Eyes: denies decreased vision, denies diplopia, denies discharge, denies pain Ears: deny: decreased hearing Ears, nose, mouth and throat: Denies dental pain, Denies headache, Denies nasal discharge, Denies nose pain Cardiovascular: Denies chest pain, endorses decreased exercise tolerance, endorses bilateral lower extremity edema, Denies high blood pressure, Denies irregular heart beat, Denies palpitations, Denies paroxysmal nocturnal dyspnea, Denies rapid heart beat, reports shortness of breath-improved Respiratory: Denies congestion, endorses dry cough, Denies cough with sputum, endorses dyspnea, Denies home oxygen, Denies wheezing Gastrointestinal: Denies abdominal pain, Denies change in bowel habits, Denies coffee ground emesis, Denies early satiety, Denies excessive gas, Denies heartburn, Denies hematemesis, Denies hematochezia, Denies loss of appetite, Denies nausea, Denies vomiting Genitourinary: Denies dysuria, Denies flank pain, Denies kidney stones, Denies menorrhagia, Denies urgency, Denies urinary frequency Musculoskeletal: Endorses gait dysfunction, Denies limitation of motion, Denies morning stiffness, Denies muscle cramps Integumentary: Denies rash, Denies wounds, Denies brittle nails, Denies change in hair/nails, Denies darkening of skin Neurological: Denies balance difficulties, Denies change in speech, Denies double vision, Denies gait dysfunction, Denies loss of vision, Denies motor disturbance, Denies numbness, Denies paralysis, Denies paresthesias, Denies seizures Psychiatric: Denies anxiety, Denies depression Endocrine: Denies excessive sweating, Denies excessive thirst, noted elevated blood sugars, Denies palpitations Hematologic/Lymphatic: Denies easy bruising, Denies lymphadenopathy Physical exam - Constitutional General appearance: cooperative, no acute distress, on 6 L high flow cannula - EENT Eyes: anicteric sclerae, PERRLA, normal appearance ENT: hearing grossly normal - Neck Neck: no lymphadenopathy, normal ROM, no other, no rigidity, no stridor, no thyromegaly - Respiratory Respiratory: bilateral: Decreased air entry with the back crackles involving the left upper and mid lobe with decreased air entry involving the right lung. Dull to percussion. No use of sensory muscles, catheter in the left pleural cavity, no drainage noted - Cardiovascular Rhythm: Irregularly irregular Heart sounds: normal: S1, S2 Abnormal Heart Sounds: no systolic murmur, no diastolic murmur, no rub, no S3 Gallop, no S4 Gallop, no click, no other - Gastrointestinal General gastrointestinal: normal bowel sounds, soft nontender - Integumentary Integumentary: Bilateral lower extremity edema left worse than the right - Neurologic Neurologic: No sensory or motor deficit - Musculoskeletal Musculoskeletal: gait not assessed, strength equal bilaterally - Psychiatric Psychiatric: A&O x's 3, appropriate affect Assessment and plan Acute diastolic heart failure, ejection fraction 55-60% with severe concentric left ventricle hypertrophy and moderate to severe pulmonary hypertension moderate tricuspid regurgitation on October 2020 -Status post Lasix IV - Input and output monitoring - Daily weights - Cardiology consult appreciated Acute hypoxic respiratory failure secondary to CHF exacerbation and bilateral pleural effusions, pulmonary embolism, pneumonia ruled out -Discontinue vancomycin and Zosyn - Covid negative - Continue DuoNeb as needed for shortness of breath - Lasix daily by nephrology - Sputum culture - Mucinex 1200 twice a day - Patient has been started on heparin drip, eliquis prescription has been sent to his pharmacy Acute kidney injury secondary to ATN with cardiorenal syndrome on chronic kidney disease stage IV secondary to diabetic kidney disease with baseline creatinine 2.5 -avoid nephrotoxic agents - Lasix dose by nephrology -Continue Albright catheter - Nephrology consult appreciated - Hold oral Lasix New onset paroxysmal atrial fibrillation. - Continue Coreg 12.5 twice a day -No anticoagulation due to history of GI bleed the patient will require anticoa gulation due to pulmonary embolism Metastatic melanoma with metastasis to the lung and lymph nodes enlargement. -On immunotherapy - Follows Dr. Umaña - Consult with oncology Recurrent pleural effusion With pleural cath involving the left pleural cavity unclear if related to melanoma - CT with b/l plueral effusion - Since April 2021, last thoracentesis on 2 days ago was 550 output - Thoracentesis few days to week - Follows cardiothoracic surgeon at the [facility] Hypoglycemia with history Diabetes mellitus type 2, hypoglycemia resolved - Levemir resumed at home dose of 35 units at bedtime - Prandin 1 mg with meals added - Insulin sliding scale - A1c 8.8 - Glucose checked before meals and at bedtime CAD with prior CABG in the past, status post occlusive disease in the LAD, and diagonal branch - followed by cardiology - Continue aspirin, Coreg, Lipitor 80 mg daily Covid infection 19 on 10/18 - Received Covid booster 1 week Uncontrolled hypertension -Coreg 12.5 mg twice daily, hydralazine 25 mg twice daily, Hyperlipidemia - Continue atorvastatin 80 mg daily History of GI bleed, none currently, was previously on Eliquis. Patient on aspirin only DVT prophylaxis - Heparin drip to be transitioned to eliquis CODE STATUS full code DISCHARGE PLAN Home. Impression and plan of care have been directed as dictated by the signing physician. Marry Andre nurse practitioner acting as scribe for signing physician. Objective - Vital Signs Vital signs: Vital Signs Temp 97.3 F L 08/30/21 08:00 Pulse 65 08/30/21 08:00 Resp 18 08/30/21 08:00 BP 144/65 08/30/21 08:00 Pulse Ox 94 L 08/30/21 08:00 Intake & Output 08/29/21 08/30/21 08/30/21 18:59 06:59 18:59 Intake Total 605 679.224 240 Output Total 650 350 250 Balance -45 329.224 -10 Weight 83.5 kg Intake: IV 100 Piperacillin-Tazobactam 3 100 .375 gm In Sodium Chloride 0.9% 100 ml @ 25 mls/hr IVPB Q12H [facility] Rx# :[id number] Intake, IV Titration 579.224 Amount Heparin Sod,Pork in 0.45% 179.224 NaCl 25,000 unit In 0.45 % NaCl 1 250ml.bag @ 18 UNITS/KG/HR 15.48 mls/hr IV .Q16H9M [facility] Rx#: [id number] Sodium Chloride 0.9% 1, 400 000 ml @ 50 mls/hr IV . Q20H [facility] Rx#:[id number] Oral 605 240 Output: Urine 650 350 250 Other: Voiding Method Indwelling Catheter Indwelling Catheter Indwelling Catheter - Labs CBC & Chem 7: 08/30/21 10:44 08/30/21 10:39 Labs: Abnormal Lab Results - Last 24 Hours (Table) 11/30/21 11/30/21 11/30/21 Range/Units 12:03 16:55 19:49 RBC (4.30-5.90) m/uL Hgb (13.0-17.5) gm/dL Hct (39.0-53.0) % Lymphocytes # (1.0-4.8) k/uL APTT (22.0-30.0) sec POC Glucose (mg/dL) 249 H 227 H 213 H (75-99) mg/dL 08/30/21 08/30/21 08/30/21 Range/Units 00:48 05:01 05:17 RBC (4.30-5.90) m/uL Hgb (13.0-17.5) gm/dL Hct (39.0-53.0) % Lymphocytes # (1.0-4.8) k/uL APTT 82.4 H (22.0-30.0) sec POC Glucose (mg/dL) 39 L 41 L (75-99) mg/dL 08/30/21 08/30/21 08/30/21 Range/Units 05:31 05:46 10:44 RBC 2.80 L (4.30-5.90) m/uL Hgb 8.0 L (13.0-17.5) gm/dL Hct 23.3 L (39.0-53.0) % Lymphocytes # 0.3 L (1.0-4.8) k/uL APTT (22.0-30.0) sec POC Glucose (mg/dL) 49 L 139 H (75-99) mg/dL Microbiology - Last 24 Hours (Table) 08/26/21 11:46 Blood Culture - Preliminary Blood No Growth after 72 hours 08/26/21 11:46 Blood Culture - Preliminary Blood No Growth after 72 hours
--- NOTE | 2021-08-30 15:57 | PN ---
PROGRESS NOTE Patient is seen for followup for acute kidney injury. Patient was started on normal saline yesterday and his serum creatinine has not improved, increased to 4.2 from 4.0 yesterday. The patient has had good urine output, 24 hour output documented at about 1 L. He denies any chest pains or shortness of breath. He is not on any nephrotoxic medications currently. Blood pressure has not been low. Systolic has been around 130- 140 mmHg. PHYSICAL EXAMINATION: On examination today, blood pressure 131/74, heart rate 64 per minute, he is afebrile. Examination of the heart S1, S2. Examination of the lungs, bilateral breath sounds are heard. Decreased breath sounds at the bases. Abdomen is soft, nontender. Examination lower extremities shows no significant edema. 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 LAB: Show sodium 144, potassium 4.4, CO2 is 19, BUN 107, creatinine 4.2, hemoglobin 8.0 g/dL. ASSESSMENT: Acute kidney injury, initially mostly cardiorenal, status post diuresis with worsening creatinine, however, the past few days the Lasix has been stopped and patient was just restarted on IV fluids. His renal function has not improved, in fact, it continues to worsen. He has an indwelling Albright catheter and blood pressure is not low. UA did show evidence of small blood and 2+ protein on initial admission. I will have the Albright catheter flushed. The patient was maintained on vancomycin, this is currently discontinued. PLAN: Continue with normal saline, flush Albright catheter and avoid any nephrotoxic agents. Repeat labs in a.m. I will also recheck a urinalysis. MMODL / IJN: [id number] /
--- NOTE | 2021-08-30 16:15 | P.PN ---
Subjective Progress Note Date: 08/30/21 Mr. Kim is a patient with known metastatic melanoma, [facility] Objective - Vital Signs Vital signs: Vital Signs Temp 97.6 F 08/30/21 12:00 Pulse 64 08/30/21 12:00 Resp 18 08/30/21 12:00 BP 131/74 08/30/21 12:00 Pulse Ox 95 08/30/21 12:00 Intake & Output 08/29/21 08/30/21 08/30/21 18:59 06:59 18:59 Intake Total 605 679.224 240 Output Total 650 350 250 Balance -45 329.224 -10 Weight 83.5 kg Intake: IV 100 Piperacillin-Tazobactam 3 100 .375 gm In Sodium Chloride 0.9% 100 ml @ 25 mls/hr IVPB Q12H [facility] Rx# :[id number] Intake, IV Titration 579.224 Amount Heparin Sod,Pork in 0.45% 179.224 NaCl 25,000 unit In 0.45 % NaCl 1 250ml.bag @ 18 UNITS/KG/HR 15.48 mls/hr IV .Q16H9M [facility] Rx#: [id number] Sodium Chloride 0.9% 1, 400 000 ml @ 50 mls/hr IV . Q20H [facility] Rx#:[id number] Oral 605 240 Output: Urine 650 350 250 Other: Voiding Method Indwelling Catheter Indwelling Catheter Indwelling Catheter - Constitutional General appearance: Present: cooperative, no acute distress - EENT Eyes: Present: EOMI ENT: Present: hard of hearing, NA/AT - Neck Neck: Present: normal ROM - Respiratory Respiratory: bilateral: diminished (Pleurex) - Cardiovascular Rhythm: regularly irregular - Gastrointestinal General gastrointestinal: Present: tenderness - Integumentary Integumentary: Present: pale - Neurologic Neurologic: Present: CNII-XII intact - Musculoskeletal Musculoskeletal: Present: generalized weakness - Psychiatric Psychiatric: Present: A&O x's 3, appropriate affect, intact judgment & insight - Labs CBC & Chem 7: 08/30/21 10:44 08/30/21 10:39 Labs: Abnormal Lab Results - Last 24 Hours (Table) 08/29/21 08/29/21 08/30/21 Range/Units 16:55 19:49 00:48 RBC (4.30-5.90) m/uL Hgb (13.0-17.5) gm/dL Hct (39.0-53.0) % Lymphocytes # (1.0-4.8) k/uL APTT 82.4 H (22.0-30.0) sec POC Glucose (mg/dL) 227 H 213 H (75-99) mg/dL 08/30/21 08/30/21 08/30/21 Range/Units 05:01 05:17 05:31 RBC (4.30-5.90) m/uL Hgb (13.0-17.5) gm/dL Hct (39.0-53.0) % Lymphocytes # (1.0-4.8) k/uL APTT (22.0-30.0) sec POC Glucose (mg/dL) 39 L 41 L 49 L (75-99) mg/dL 08/30/21 08/30/21 08/30/21 Range/Units 05:46 10:39 10:44 RBC 2.80 L (4.30-5.90) m/uL Hgb 8.0 L (13.0-17.5) gm/dL Hct 23.3 L (39.0-53.0) % Lymphocytes # 0.3 L (1.0-4.8) k/uL APTT 58.3 H (22.0-30.0) sec POC Glucose (mg/dL) 139 H (75-99) mg/dL 08/30/21 Range/Units 11:52 RBC (4.30-5.90) m/uL Hgb (13.0-17.5) gm/dL Hct (39.0-53.0) % Lymphocytes # (1.0-4.8) k/uL APTT (22.0-30.0) sec POC Glucose (mg/dL) 191 H (75-99) mg/dL Microbiology - Last 24 Hours (Table) 08/26/21 11:46 Blood Culture - Preliminary Blood No Growth after 72 hours 08/26/21 11:46 Blood Culture - Preliminary Blood No Growth after 72 hours Assessment and Plan (1) Metastatic melanoma Current Visit: Yes Status: Acute Code(s): C79.9 - SECONDARY MALIGNANT NEOPLASM OF UNSPECIFIED SITE SNOMED Code(s): 880226688 (2) Acute kidney injury Current Visit: No Status: Acute Code(s): N17.9 - ACUTE KIDNEY FAILURE, UNSPECIFIED SNOMED Code(s): 81649029 Plan: Will recheck Hemoglobin today and monitor CBC He will unfortunetly need lifelong anticoagulation given his known underlying malignancy, this has been discussed with patient and primary team in detail He will return to [facility] for continued management of metastatic Melanoma. Physician Attest: I have completed th full history and physical and agree with above dictation, dictated as a ascribe.
[2021-08-30 17:00] LABS: Glucose,Whole Blood 215 mg/dL (75-99)
[2021-08-30 20:42] LABS: Glucose,Whole Blood 161 mg/dL (75-99)
[2021-08-30] MEDS: INSULIN DETEMIR (LEVEMIR) 100 UNIT/ML SYR SQ SCH (20:57)
[2021-08-31] MEDS: SODIUM CHLORIDE 0.9% 1,000 ML IV SCH (04:40)
[2021-08-31] MEDS: HEPARIN SOD,PORK IN 0.45% NACL 25,000 UNIT in 0.45% NACL 1 250ML.BAG IV SCH (04:40)
[2021-08-31 06:19] LABS: Glucose,Whole Blood 113 mg/dL (75-99)
[2021-08-31] MEDS: INSULIN ASPART (NovoLOG) 100 UNIT/ML VIAL SQ SCH ×3 (06:23→17:06)
[2021-08-31] MEDS: REPAGLINIDE 1 MG TAB PO SCH ×3 (06:29→17:06)
[2021-08-31] MEDS: carvediloL 12.5 MG TAB PO SCH ×2 (06:29→17:06)
[2021-08-31 07:21] LABS: Basophils % (A) 0 %; Eosinophils # (A) 0.3 k/uL (0-0.7); Eosinophils % (A) 4 %; HCT 22.1 % (39.0-53.0); HGB 7.6 gm/dL (13.0-17.5); Lymphocytes # (A) 0.4 k/uL (1.0-4.8); Lymphocytes % (A) 5 %; MCH 28.3 pg (25.0-35.0); MCHC 34.2 g/dL (31.0-37.0); MCV 82.9 fL (80.0-100.0); Mean Platelet Volume 7.6; Monocytes # (A) 0.5 k/uL (0-1.0); Monocytes % (A) 6 %; Neutrophils # (A) 6.6 k/uL (1.3-7.7); Neutrophils % (A) 84 %; Platelet Count 229 k/uL (150-450); Poikilocytosis Slight; RBC 2.67 m/uL (4.30-5.90); RDW 15.1 % (11.5-15.5); WBC 7.9 k/uL (3.8-10.6)
[2021-08-31] MEDS: ATORVASTATIN 80 MG TAB PO SCH (08:43)
[2021-08-31] MEDS: SODIUM BICARBONATE TAB 650 MG TAB PO SCH ×2 (08:43→19:55)
[2021-08-31] MEDS: ASPIRIN 81 MG PO SCH (08:43)
[2021-08-31] MEDS: hydrALAZINE HCL 25 MG TAB PO SCH ×2 (08:43→19:55)
[2021-08-31 11:06] LABS: African American GFR (CKD) 16 (>60 ml/min/1.73 sqM); Anion Gap 10 mmol/L; Blood Urea Nitrogen 99 mg/dL (9-20); Calcium 8.3 mg/dL (8.4-10.2); Carbon Dioxide 18 mmol/L (22-30); Chloride 113 mmol/L (98-107); Glucose 96 mg/dL (74-99); Non-African American GFR(CKD) 14 (>60 ml/min/1.73 sqM); Potassium 4.2 mmol/L (3.5-5.1); Sodium 141 mmol/L (137-145)
--- NOTE | 2021-08-31 11:18 | US ---
EXAMINATION TYPE: US kidneys/renal and bladder DATE OF EXAM: 08/31/2021 COMPARISON: NONE CLINICAL HISTORY: LINNEA. EXAM MEASUREMENTS: Right Kidney: 10.6x5.3x5.7 cm Left Kidney: 10.3x4.9x5.5 cm Right pleural effusion seen. Right Kidney: wnl Left Kidney: wnl Bladder: Not seen. There is no evidence for hydronephrosis at this point in time. No nephrolithiasis is seen. No katie s are identified. IMPRESSION: No hydronephrosis or nephrolithiasis. There is increased echogenicity of the renal cortex which can b e associated with chronic medical renal disease correlate clinically.
[2021-08-31 12:09] LABS: Glucose,Whole Blood 143 mg/dL (75-99)
--- NOTE | 2021-08-31 13:31 | P.PN ---
Subjective Progress Note Date: 08/31/21 HISTORY OF PRESENT ILLNESS: This is a 71-year-old male who sees Dr. Xiong in the office. Patient is admitted to the hospital secondary to CHF, shortness of breath, and atrial fibrillation. Patient had an echocardiogram completed in July 2021 revealing ejection fraction 55-60%. Repeat echocardiogram is pending. Patient currently denies chest pain or pressure. He denies shortness of breath. Telemetry reveals sinus mechanism. Patient is not on anticoagulation secondary to a history of GI bleed per internal medicine's notes. The patient received a one-time dose of Lasix per nephrology. Creatinine today 3.86. 08/29/2021 Patient examined this morning at the bedside. He denies chest pain or pressure. Denies shortness of breath. He remains on 6L NC with oxygen saturations greater than 92%. Telemetry reveals sinus mechanism. Creatinine 4.04. Nephrology following. Repeat echo revealed EF 55-60%. 08/30/2021 Patient examined this morning at the bedside. He denies chest pain or pressure. Denies shortness of breath. He remains on 6L NC with oxygen saturations greater than 92%. Blood pressure 144/65. Patient underwent right lower extremity Doppler revealing lack of compression and thrombus within the left popliteal vein compatible with DVT although acute DVT cannot be excluded as does appear to be improved from prior exam of 2018 suggesting chronic component. VQ scan performed revealing high probability for pulmonary embolism. Patient was started on IV heparin per internal medicine 08/31/2021 Patient examined this morning. He is sitting up in the chair. He denies chest pain or pressure. Denies shortness of breath. He remains on IV heparin. Plan is to transition to [facility] at discharge. Vital signs are stable. Creatinine 3.99. BUN 99. PHYSICAL EXAM: VITAL SIGNS: Reviewed. GENERAL: Well-developed in no acute distress. NECK: Supple. No JVD or thyromegaly LUNGS: Respirations even and unlabored. Lungs diminished to auscultation bilaterally. HEART: Regular rate and rhythm. S1 and S2 heard. EXTREMITIES: Normal range of motion. No clubbing or cyanosis. Peripheral pulses intact. Trace lower extremity edema ASSESSMENT: Dyspnea Pneumonia Pulmonary embolism Acute exacerbation of chronic diastolic congestive heart failure, ejection fraction 55-60% New-onset paroxysmal atrial fibrillation, currently maintaining sinus mechanism History of GI bleed Metastatic melanoma with metastasis to the lung and lymph nodes Recurrent pleural effusion with pleural cath Diabetes Hypertension Hyperlipidemia History of Covid Coronary artery disease with previous CABG and PCI Acute on chronic kidney disease History of DVT PLAN: Patient previously not on anticoagulation for afib secondary to history of GI bleeding Patient placed on IV heparin for PE per internal medicine. Will defer oral anticoagulation of PE to medicine team. Continue current cardiac medications Monitor kidney function. Diuretic management per nephrology: currently off diuretics Further recommendations pending patient course Nurse practitioner note has been reviewed by physician. Signing provider agrees with the documented findings, assessment, and plan of care. Objective - Vital Signs Vital signs: Vital Signs Temp 98.3 F 08/31/21 12:00 Pulse 71 08/31/21 12:00 Resp 20 08/31/21 12:00 BP 147/67 08/31/21 12:00 Pulse Ox 91 L 08/31/21 12:00 Intake & Output 08/30/21 08/31/21 08/31/21 18:59 06:59 18:59 Intake Total 480 860 726 Output Total 250 350 250 Balance 230 510 476 Weight 86.2 kg Intake: Intake, IV Titration 500 250 Amount Heparin Sod,Pork in 0.45% 250 NaCl 25,000 unit In 0.45 % NaCl 1 250ml.bag @ 18 UNITS/KG/HR 15.48 mls/hr IV .Q16H9M [facility] Rx#: [id number] Sodium Chloride 0.9% 1, 500 000 ml @ 50 mls/hr IV . Q20H [facility] Rx#:[id number] Oral 480 360 476 Output: Urine 250 350 250 Other: Voiding Method Indwelling Catheter Indwelling Catheter Indwelling Catheter - Labs CBC & Chem 7: 08/31/21 06:53 08/31/21 06:53 Labs: Abnormal Lab Results - Last 24 Hours (Table) 08/30/21 08/30/21 08/31/21 Range/Units 16:38 20:40 06:17 RBC (4.30-5.90) m/uL Hgb (13.0-17.5) gm/dL Hct (39.0-53.0) % Lymphocytes # (1.0-4.8) k/uL APTT (22.0-30.0) sec Chloride (98-107) mmol/L Carbon Dioxide (22-30) mmol/L BUN (9-20) mg/dL Creatinine (0.66-1.25) mg/dL POC Glucose (mg/dL) 215 H 161 H 113 H (75-99) mg/dL Calcium (8.4-10.2) mg/dL 08/31/21 08/31/21 08/31/21 Range/Units 06:53 06:53 06:53 RBC 2.67 L (4.30-5.90) m/uL Hgb 7.6 L (13.0-17.5) gm/dL Hct 22.1 L (39.0-53.0) % Lymphocytes # 0.4 L (1.0-4.8) k/uL APTT 48.1 H (22.0-30.0) sec Chloride 113 H (98-107) mmol/L Carbon Dioxide 18 L (22-30) mmol/L BUN 99 H (9-20) mg/dL Creatinine 3.99 H (0.66-1.25) mg/dL POC Glucose (mg/dL) (75-99) mg/dL Calcium 8.3 L (8.4-10.2) mg/dL 08/31/21 Range/Units 11:53 RBC (4.30-5.90) m/uL Hgb (13.0-17.5) gm/dL Hct (39.0-53.0) % Lymphocytes # (1.0-4.8) k/uL APTT (22.0-30.0) sec Chloride (98-107) mmol/L Carbon Dioxide (22-30) mmol/L BUN (9-20) mg/dL Creatinine (0.66-1.25) mg/dL POC Glucose (mg/dL) 143 H (75-99) mg/dL Calcium (8.4-10.2) mg/dL Microbiology - Last 24 Hours (Table) 08/26/21 11:46 Blood Culture - Preliminary Blood No Growth after 96 hours 08/26/21 11:46 Blood Culture - Preliminary Blood No Growth after 96 hours
--- NOTE | 2021-08-31 13:42 | XR ---
EXAMINATION TYPE: XR chest 2V DATE OF EXAM: 08/31/2021 COMPARISON: 08/29/2021 TECHNIQUE: PA and lateral views submitted. HISTORY: Cough FINDINGS: Heart is enlarged. Postoperative changes diffuse interstitial pattern and small left effusion and angelo ateral lower lobe infiltrate. Biapical pleural thickening. Arthropathy of the shoulders. Hypertrophic and degenerative changes of the spine. IMPRESSION: 1. Correlate for CHF otherwise consider diffuse pneumonia. Findings stable.
--- NOTE | 2021-08-31 14:37 | P.PN ---
Subjective Progress Note Date: 08/31/21 History of present illness This is a 70-year-old gentleman patient of Dr. Wyatt Pereira. He has underlying history of diabetes mellitus type 2, CAD with prior CABG, CK D stage III, hypertension, history of melanoma was in remission until March when patient was noted to have metastatic melanoma with metastases to the lung with enlarged lymph nodes currently on immunotherapy. Patient had recent covid infection in September, with acute kidney injury secondary to covid infection September 2020 and follow Ernie since then. Patient was again admitted in November 09 for 2 days for acute diastolic congestive heart failure secondary to withdrawal off diuretics due to worsening kidney function. He was seen in the ER in March 20 for shortness of breath secondary to metastatic melanoma to his lungs with bilateral pleural effusions. Patient has been getting frequent thoracentesis a nd underwent pigtail catheter placement in the left chest in April. He was initially getting fluid removed up to 1 L every day but currently patient is getting fluid removed up to 550 mL once a week, last one 2 days ago. Patient has noticed poor appetite and increased shortness of breath for the past 1 week. He had his Covid booster 6 days ago following which he went to [facility] to have a brain MRI and CT. He received his immunotherapy 3 days ago. He has not recovered since then. His noticed poor appetite increased weakness associated with cough and shortness of breath. Patient was found to have low blood sugar in the low 30s which came back to normal. EKG demonstrated atrial fibrillation In the ER patient is noted to be hypoxic and was placed on 5 L of high flow still saturating at 89%. Otherwise patient is afebrile pulse 66 respiratory rate 18 blood pressure 127/58. He had a leukocytosis of 11, hemoglobin 9.9 platelet 225, BUN 109 creatinine 3.59. Sodium 139 potassium 3.4 chloride 110 bicarb 18 [place] [id number] Chest x-ray on 08/26 suggests cardiomegaly with small left pleural effusion R [id number] interstitial edema concerning for CHF exacerbation was noted. CT chest was obtained that showed bilateral pleural effusion with basilar pulmonary airspace infiltrates and atelectasis significantly increased compared to old exam with cardiomegaly and mediastinotomy edema but the similar to old exam. 08/28: Patient has been seen and followed by cardiology with recommendations to continue current medications. Echocardiogram has been obtained and report is pending. Patient is also followed by nephrology with recommendations to continue diuretics, discontinue Norvasc. Repeat chest x-ray reveals stable bibasilar right greater than left patchy and interstitial opacities with stable moderate cardiomegaly, trace left pleural effusion may be on the basis of mult ifocal pneumonia/atelectasis and/or heart failure. No pneumothorax. Patient has been afebrile, heart rate 62, blood pressure 126/66, pulse ox 94% on 6 L nasal cannula. Plan is to wean oxygen down. Repeat blood work reveals sodium 140, potassium 3.7, chloride 110, CO2 19, BUN 107, creatinine 3.86. Blood sugars are running mostly in the 300s this morning 133. Prandin 1 mg with meals added and Levemir increased to home dose of 35 units at bedtime. Patient has Albright catheter in place which we will have removed today and bladder scan postvoid. Home oxygen assessment to be done. 08/29: Patient is seen today on the cardiac stepdown unit. He is followed by nephrology with recommendations to maintain Albright catheter, avoid hypotension, nephro toxic agents and continue IV fluids at 50 ML's per hour. We have discontinued vancomycin. Patient has also been seen by cardiology. Patient is currently on Zosyn. VQ scan ordered to rule out pulmonary embolism due to ongoing hypoxia. Patient is requiring 6 L nasal cannula with pulse ox of 92%. He's been afebrile, heart rate 66, blood pressure 133/68. Repeat blood work reveals sodium 138, potassium 4.2, chloride 109, CO2 19, BUN 103 and creatinine 4.04. Blood sugars are running between 167 and 249.. Ultrasound of the right lower extremity revealed DVT but could not be determined if this was acute and suggest chronic component. Chest x-ray reveals heart failure underlying pneumonia not excluded. 08/30: She is currently on IV heparin for pulmonary embolism.patient does have history of lower extremity DVT which he states he completed course of anticoagulation. Discussed case with oncology and we will plan for eliquis, prescription is been sent to his pharmacy. Pneumonia has been ruled out and antibiotics will be discontinued. Patient has Albright catheter in place which will be discontinued today if okay with nephrology and check postvoid residual. The blood work reveals WBC 8.5, hemoglobin 8.0. BUN 107, creatinine 4.2, CO2 19. Patient has been seen by PT and OT with recommendations for home. 08/31: Catheter was discontinued this morning and bladder scan is ordered for 1 PM. Patient has increased breath sounds on left-sided chest x-ray ordered today. Renal function is slightly improved from yesterday with BUN of 99 and creatinine 3.99. Hemoglobin 7.6. TSH is 2.740. Patient will be started on eliquis and heparin discontinued. She has been afebrile, heart rate 70, blood pressure 141/76, pulse ox 92% on 4 L nasal cannula. The patient may require home oxygen therapy and we will assess closer to discharge. Renal ultrasound revealed no hydronephrosis or nephrolithiasis. There is increased echogenicity of the renal cortex which can be sutured with chronic medical renal disease. Chest x-ray reveals correlate for heart failure otherwise diffuse pneumonia. Findings stable. ROS Constitutional: Denies chills, Denies fever, endorses lethargy, endorses malaise, Denies poor appetite, endorses weakness, Denies weight loss Eyes: denies decreased vision, denies diplopia, denies discharge, denies pain Ears: deny: decreased hearing Ears, nose, mouth and throat: Denies dental pain, Denies headache, Denies nasal discharge, Denies nose pain Cardiovascular: Denies chest pain, endorses decreased exercise tolerance, endorses bilateral lower extremity edema, Denies high blood pressure, Denies irregular heart beat, Denies palpitations, Denies paroxysmal nocturnal dyspnea, Denies rapid heart beat, reports shortness of breath-improved Respiratory: Denies congestion, endorses dry cough, Denies cough with sputum, endorses dyspnea, Denies home oxygen therapy, Denies wheezing Gastrointestinal: Denies abdominal pain, Denies change in bowel habits, Denies coffee ground emesis, Denies early satiety, Denies excessive gas, Denies heartburn, Denies hematemesis, Denies hematochezia, Denies loss of appetite, Denies nausea, Denies vomiting Genitourinary: Denies dysuria, Denies flank pain, Denies kidney stones, Denies menorrhagia, Denies urgency, Denies urinary frequency Musculoskeletal: Endorses gait dysfunction, Denies limitation of motion, Denies morning stiffness, Denies muscle cramps Integumentary: Denies rash, Denies wounds, Denies brittle nails, Denies change in hair/nails, Denies darkening of skin Neurological: Denies balance difficulties, Denies change in speech, Denies double vision, Denies gait dysfunction, Denies loss of vision, Denies motor disturbance, Denies numbness, Denies paralysis, Denies paresthesias, Denies seizures Psychiatric: Denies anxiety, Denies depression Endocrine: Denies excessive sweating, Denies excessive thirst, noted elevated blood sugars, Denies palpitations Hematologic/Lymphatic: Denies easy bruising, Denies lymphadenopathy Physical exam - Constitutional General appearance: cooperative, no acute distress, on 4 L high flow cannula - EENT Eyes: anicteric sclerae, PERRLA, normal appearance ENT: hearing grossly normal - Neck Neck: no lymphadenopathy, normal ROM, no other, no rigidity, no stridor, no thyromegaly - Respiratory Respiratory: bilateral: Decreased air entry with the back crackles involving the left upper and mid lobe with decreased air entry involving the right lung. Dull to percussion. No use of sensory muscles, catheter in the left pleural cavity, no drainage noted - Cardiovascular Rhythm: Irregularly irregular Heart sounds: normal: S1, S2 Abnormal Heart Sounds: no systolic murmur, no diastolic murmur, no rub, no S3 Gallop, no S4 Gallop, no click, no other - Gastrointestinal General gastrointestinal: normal bowel sounds, soft nontender - Integumentary Integumentary: Bilateral lower extremity edema left worse than the right - Neurologic Neurologic: No sensory or motor deficit - Musculoskeletal Musculoskeletal: gait not assessed, strength equal bilaterally - Psychiatric Psychiatric: A&O x's 3, appropriate affect Assessment and plan Acute diastolic heart failure, ejection fraction 55-60% with severe concentric left ventricle hypertrophy and moderate to severe pulmonary hypertension moderate tricuspid regurgitation on October 2020 -Status post Lasix IV - Input and output monitoring - Daily weights - Cardiology consult appreciated Acute hypoxic respiratory failure secondary to CHF exacerbation and bilateral pleural effusions, pulmonary embolism, pneumonia ruled out - Covid negative - Continue DuoNeb as needed for shortness of breath - Lasix daily by nephrology - Sputum culture - Mucinex 1200 twice a day - Discontinue heparin drip and start eliquis Acute kidney injury secondary to ATN with cardiorenal syndrome on chronic kidney disease stage IV secondary to diabetic kidney disease with baseline creatinine 2.5 -avoid nephrotoxic agents - Lasix dose by nephrology -Albright catheter has been discontinued - Nephrology consult appreciated - Hold oral Lasix New onset paroxysmal atrial fibrillation. - Continue Coreg 12.5 twice a day -No anticoagulation due to history of GI bleed the patient will require anticoagulation due to pulmonary embolism Metastatic melanoma with metastasis to the lung and lymph nodes enlargement. -On immunotherapy - Follows Dr. Umaña - Consult with oncology Recurrent pleural effusion With pleural cath involving the left pleural cavity unclear if related to melanoma - CT with b/l plueral effusion - Since April 2021, last thoracentesis on 2 days ago was 550 output - Thoracentesis few days to week - Follows cardiothoracic surgeon at the [facility] Hypoglycemia with history Diabetes mellitus type 2, hypoglycemia resolved - Levemir resumed at home dose of 35 units at bedtime - Prandin 1 mg with meals added - Insulin sliding scale - A1c 8.8 - Glucose checked before meals and at bedtime CAD with prior CABG in the past, status post occlusive disease in the LAD, and diagonal branch - followed by cardiology - Continue aspirin, Coreg, Lipitor 80 mg daily Covid infection 19 on 10/18 - Received Covid booster 1 week Uncontrolled hypertension -Coreg 12.5 mg twice daily, hydralazine 25 mg twice daily, Hyperlipidemia - Continue atorvastatin 80 mg daily History of GI bleed, none currently, was previously on Eliquis. Patient on aspirin only DVT prophylaxis - Heparin drip transitioned to eliquis CODE STATUS full code DISCHARGE PLAN Home. Impression and plan of care have been directed as dictated by the signing phys brannon. Marry Andre nurse practitioner acting as scribe for signing physician. Objective - Vital Signs Vital signs: Vital Signs Temp 97.6 F 08/31/21 08:40 Pulse 70 08/31/21 08:40 Resp 18 08/31/21 08:40 BP 141/76 08/31/21 08:40 Pulse Ox 92 L 08/31/21 08:40 Intake & Output 08/30/21 08/31/21 08/31/21 18:59 06:59 18:59 Intake Total 480 860 486 Output Total 250 350 Balance 230 510 486 Weight 86.2 kg Intake: Intake, IV Titration 500 250 Amount Heparin Sod,Pork in 0.45% 250 NaCl 25,000 unit In 0.45 % NaCl 1 250ml.bag @ 18 UNITS/KG/HR 15.48 mls/hr IV .Q16H9M [facility] Rx#: [id number] Sodium Chloride 0.9% 1, 500 000 ml @ 50 mls/hr IV . Q20H [facility] Rx#:[id number] Oral 480 360 236 Output: Urine 250 350 Other: Voiding Method Indwelling Catheter Indwelling Catheter - Labs CBC & Chem 7: 08/31/21 06:53 08/31/21 06:53 Labs: Abnormal Lab Results - Last 24 Hours (Table) 08/30/21 08/30/21 08/30/21 Range/Units 10:39 10:39 10:44 RBC 2.80 L (4.30-5.90) m/uL Hgb 8.0 L (13.0-17.5) gm/dL Hct 23.3 L (39.0-53.0) % Lymphocytes # 0.3 L (1.0-4.8) k/uL APTT 58.3 H (22.0-30.0) sec Chloride 111 H (98-107) mmol/L Carbon Dioxide 19 L (22-30) mmol/L BUN 107 H* (9-20) mg/dL Creatinine 4.24 H (0.66-1.25) mg/dL Glucose 155 H (74-99) mg/dL POC Glucose (mg/dL) (75-99) mg/dL Total Protein 5.6 L (6.3-8.2) g/dL Albumin 2.7 L (3.5-5.0) g/dL 08/30/21 08/30/21 08/30/21 Range/Units 11:52 16:38 20:40 RBC (4.30-5.90) m/uL Hgb (13.0-17.5) gm/dL Hct (39.0-53.0) % Lymphocytes # (1.0-4.8) k/uL APTT (22.0-30.0) sec Chloride (98-107) mmol/L Carbon Dioxide (22-30) mmol/L BUN (9-20) mg/dL Creatinine (0.66-1.25) mg/dL Glucose (74-99) mg/dL POC Glucose (mg/dL) 191 H 215 H 161 H (75-99) mg/dL Total Protein (6.3-8.2) g/dL Albumin (3.5-5.0) g/dL 08/31/21 08/31/21 08/31/21 Range/Units 06:17 06:53 06:53 RBC 2.67 L (4.30-5.90) m/uL Hgb 7.6 L (13.0-17.5) gm/dL Hct 22.1 L (39.0-53.0) % Lymphocytes # 0.4 L (1.0-4.8) k/uL APTT 48.1 H (22.0-30.0) sec Chloride (98-107) mmol/L Carbon Dioxide (22-30) mmol/L BUN (9-20) mg/dL Creatinine (0.66-1.25) mg/dL Glucose (74-99) mg/dL POC Glucose (mg/dL) 113 H (75-99) mg/dL Total Protein (6.3-8.2) g/dL Albumin (3.5-5.0) g/dL Microbiology - Last 24 Hours (Table) 08/26/21 11:46 Blood Culture - Preliminary Blood No Growth after 96 hours 08/26/21 11:46 Blood Culture - Preliminary Blood No Growth after 96 hours
--- NOTE | 2021-08-31 14:51 | PN ---
PROGRESS NOTE Patient is seen for followup for acute kidney injury. Patient's renal function had worsened over the last couple of days and he was started on gentle IV hydration, saline at 50 mL an hour. He has been voiding. Patient initially had a Albright catheter which was removed this morning and currently waiting for him to void. Serum creatinine is down today to 3.9 from 4.2 yesterday. EXAMINATION: Today patient is comfortable. Blood pressure is at 141/76, heart rate 70 per minute. He is afebrile. Examination of the heart S1, S2. Examination of lungs: Decreased breath sounds at the bases. Abdomen is soft, nontender. Examination of lower extremities shows trace edema bilaterally. BALANCER SCALE exam is grossly intact. LAB: Show sodium 141, potassium 4.2, chloride 113, CO2 is 18, BUN 99, creatinine 3.9, hemoglobin 7.6 g/dL. ASSESSMENT: 1. Acute kidney injury, mostly acute tubular necrosis with a component of cardiorenal syndrome. Renal function had been worsening. The patient had a Albright catheter which is now removed. He was started on saline over the last couple of days. Renal function is slightly improved now. Need to monitor for urine retention and nursing staff is advised to check postvoid residual once the patient voids. 2. Chronic kidney disease secondary to diabetic kidney disease, stage IV. Baseline creatinine 2.5. 3. Acute on chronic diastolic congestive heart failure with moderate mitral regurgitation, pulmonary hypertension. 4. Volume overload. This had improved. The patient is now on IV fluids. I will discontinue the saline today. 5. Malignant melanoma with metastasis. 6. Type 2 diabetes. 7. Pneumonia maintained on antibiotics. PLAN: Discontinue normal saline and check postvoid residual. Repeat labs in a.m. Avoid hypotension. Continue off nephrotoxic medications. Continue with the sodium bicarb for now. MMODL / IJN: [id number] /
[2021-08-31 16:30] LABS: Glucose,Whole Blood 180 mg/dL (75-99)
[2021-08-31] MEDS: APIXABAN 5 MG TAB PO SCH (19:55)
[2021-08-31 19:56] LABS: % Iron Saturation 16.52 (15.00-50.00); Iron 26 ug/dL (65-175); Total Iron Binding Capacity 157 ug/dL (228-460)
[2021-08-31 20:04] LABS: Glucose,Whole Blood 182 mg/dL (75-99)
[2021-08-31] MEDS: INSULIN DETEMIR (LEVEMIR) 100 UNIT/ML SYR SQ SCH (20:38)
[2021-09-01 06:05] LABS: Glucose,Whole Blood 139 mg/dL (75-99)
[2021-09-01] MEDS: INSULIN ASPART (NovoLOG) 100 UNIT/ML VIAL SQ SCH ×3 (06:23→17:01)
[2021-09-01] MEDS: carvediloL 12.5 MG TAB PO SCH ×2 (06:28→17:01)
[2021-09-01] MEDS: REPAGLINIDE 1 MG TAB PO SCH ×3 (06:28→17:02)
[2021-09-01] MEDS: ATORVASTATIN 80 MG TAB PO SCH (09:44)
[2021-09-01] MEDS: APIXABAN 5 MG TAB PO SCH ×2 (09:44→20:41)
[2021-09-01] MEDS: ASPIRIN 81 MG PO SCH (09:44)
[2021-09-01] MEDS: hydrALAZINE HCL 25 MG TAB PO SCH ×2 (09:44→20:41)
[2021-09-01] MEDS: SODIUM BICARBONATE TAB 650 MG TAB PO SCH ×2 (09:44→20:41)
[2021-09-01 10:10] LABS: Calcium 8.6 mg/dL (8.4-10.2); Potassium 4.6 mmol/L (3.5-5.1)
[2021-09-01] MEDS ORDERED: hydrALAZINE HCL 25 MG TAB PO STA (10:53)
--- NOTE | 2021-09-01 10:55 | P.PN ---
Subjective Progress Note Date: 09/01/21 HISTORY OF PRESENT ILLNESS: This is a 71-year-old male who sees Dr. Xiong in the office. Patient is admitted to the hospital secondary to CHF, shortness of breath, and atrial fibrillation. Patient had an echocardiogram completed in July 2021 revealing ejection fraction 55-60%. Repeat echocardiogram is pending. Patient currently denies chest pain or pressure. He denies shortness of breath. Telemetry reveals sinus mechanism. Patient is not on anticoagulation secondary to a history of GI bleed per internal medicine's notes. The patient received a one-time dose of Lasix per nephrology. Creatinine today 3.86. 08/29/2021 Patient examined this morning at the bedside. He denies chest pain or pressure. Denies shortness of breath. He remains on 6L NC with oxygen saturations greater than 92%. Telemetry reveals sinus mechanism. Creatinine 4.04. Nephrology following. Repeat echo revealed EF 55-60%. 08/30/2021 Patient examined this morning at the bedside. He denies chest pain or pressure. Denies shortness of breath. He remains on 6L NC with oxygen saturations greater than 92%. Blood pressure 144/65. Patient underwent right lower extremity Doppler revealing lack of compression and thrombus within the left popliteal vein compatible with DVT although acute DVT cannot be excluded as does appear to be improved from prior exam of 2018 suggesting chronic component. VQ scan performed revealing high probability for pulmonary embolism. Patient was started on IV heparin per internal medicine 08/31/2021 Patient examined this morning. He is sitting up in the chair. He denies chest pain or pressure. Denies shortness of breath. He remains on IV heparin. Plan is to transition to Eliquis at discharge. Vital signs are stable. Creatinine 3.99. BUN 99. 09/01/2021 Patient examined this morning at the bedside. Patient denies chest pain or pressure. He denies shortness of breath. He has been transitioned to Eliquis. Telemetry reveals sinus mechanism. Blood pressure 167/79. BUN 101. Creatinine 3.88. PHYSICAL EXAM: VITAL SIGNS: Reviewed. GENERAL: Well-developed in no acute distress. NECK: Supple. No JVD or thyromegaly LUNGS: Respirations even and unlabored. Lungs diminished to auscultation bilaterally. HEART: Regular rate and rhythm. S1 and S2 heard. EXTREMITIES: Normal range of motion. No clubbing or cyanosis. Peripheral pu lses intact. Trace lower extremity edema ASSESSMENT: Dyspnea Pneumonia Pulmonary embolism Acute exacerbation of chronic diastolic congestive heart failure, ejection fraction 55-60% New-onset paroxysmal atrial fibrillation, currently maintaining sinus mechanism History of GI bleed Metastatic melanoma with metastasis to the lung and lymph nodes Recurrent pleural effusion with pleural cath Diabetes Hypertension Hyperlipidemia History of Covid Coronary artery disease with previous CABG and PCI Acute on chronic kidney disease History of DVT PLAN: Patient has been transitioned to Eliquis for treatment of PE Increase hydralazine to 50 mg twice a day for optimal blood pressure control. Given additional dose of 25 mg now Continue current cardiac medications Monitor kidney function. Diuretic management per nephrology: currently off diuretics Further recommendations pending patient course Nurse practitioner note has been reviewed by physician. Signing provider agrees with the documented findings, assessment, and plan of care. Objective - Vital Signs Vital signs: Vital Signs Temp 97.7 F 09/01/21 09:40 Pulse 69 09/01/21 09:40 Resp 18 09/01/21 09:40 BP 167/79 09/01/21 09:40 Pulse Ox 91 L 09/01/21 09:40 Intake & Output 08/31/21 09/01/21 09/01/21 18:59 06:59 18:59 Intake Total 846 240 Output Total 250 675 Balance 596 -675 240 Weight 87.3 kg Intake: Intake, IV Titration 250 Amount Heparin Sod,Pork in 0.45% 250 NaCl 25,000 unit In 0.45 % NaCl 1 250ml.bag @ 18 UNITS/KG/HR 15.48 mls/hr IV .Q16H9M [facility] Rx#: [id number] Oral 596 240 Output: Urine 250 675 Other: Voiding Method Indwelling Catheter Indwelling Catheter Indwelling Catheter - Labs CBC & Chem 7: 08/31/21 06:53 09/01/21 09:05 Labs: Abnormal Lab Results - Last 24 Hours (Table) 08/31/21 08/31/21 08/31/21 Range/Units 06:53 11:53 16:29 Chloride 113 H (98-107) mmol/L Carbon Dioxide 18 L (22-30) mmol/L BUN 99 H (9-20) mg/dL Creatinine 3.99 H (0.66-1.25) mg/dL Glucose (74-99) mg/dL POC Glucose (mg/dL) 143 H 180 H (75-99) mg/dL Calcium 8.3 L (8.4-10.2) mg/dL Iron 26 L (65-175) ug/dL TIBC 157 L (228-460) ug/dL Transferrin 112.0 L (204.0-354.0) mg/dL Ferritin 699.0 H (22.0-322.0) ng/mL 08/31/21 09/01/21 09/01/21 Range/Units 20:03 06:04 09:05 Chloride 113 H (98-107) mmol/L Carbon Dioxide 20 L (22-30) mmol/L BUN 101 H* (9-20) mg/dL Creatinine 3.88 H (0.66-1.25) mg/dL Glucose 130 H (74-99) mg/dL POC Glucose (mg/dL) 182 H 139 H (75-99) mg/dL Calcium (8.4-10.2) mg/dL Iron (65-175) ug/dL TIBC (228-460) ug/dL Transferrin (204.0-354.0) mg/dL Ferritin (22.0-322.0) ng/mL Microbiology - Last 24 Hours (Table) 08/26/21 11:46 Blood Culture - Preliminary Blood No Growth after 120 hours 08/26/21 11:46 Blood Culture - Preliminary Blood No Growth after 120 hours
[2021-09-01 11:43] LABS: Glucose,Whole Blood 144 mg/dL (75-99)
[2021-09-01] MEDS ORDERED: PIPERACILLIN-TAZOBACTAM 3.375 GM in SODIUM CHLORIDE 0.9% 100 ML IVPB SCH (12:00)
--- NOTE | 2021-09-01 12:01 | US ---
EXAMINATION TYPE: US chest DATE OF EXAM: 09/01/2021 COMPARISON: XRAY 08/31/2021 CLINICAL HISTORY: pleural effusions. TECHNIQUE: Targeted ultrasound of the posterior lower Bilateral EXAM MEASUREMENTS: Right Pleural Effusion pocket size: 4.9 cm Right skin surface to fluid distance: 2.3 cm Left Pleural Effusion pocket size: 4.8 cm Left skin surface to fluid distance: 2.0 cm Right side marked for possible thoracentesis outside the dept. Left side marked for possible thoracentesis outside the dept. Pulmonologists are able to review the images in the patient?s EMR. Left chest fluid very complex with septations. IMPRESSIONS: 1. Small right pleural effusion. 2. Small left pleural effusion with internal septations.
[2021-09-01] MEDS: PIPERACILLIN-TAZOBACTAM 3.375 GM in SODIUM CHLORIDE 0.9% 100 ML IVPB SCH ×2 (12:10→23:16)
--- NOTE | 2021-09-01 15:12 | P.PN ---
Subjective Progress Note Date: 09/01/21 History of present illness This is a 70-year-old gentleman patient of Dr. Wyatt Pereira. He has underlying history of diabetes mellitus type 2, CAD with prior CABG, CK D stage III, hypertension, history of melanoma was in remission until March when patient was noted to have metastatic melanoma with metastases to the lung with enlarged lymph nodes currently on immunotherapy. Patient had recent covid infection in September, with acute kidney injury secondary to covid infection September 2020 and follow Ernie since then. Patient was again admitted in November 09 for 2 days for acute diastolic congestive heart failure secondary to withdrawal off diuretics due to worsening kidney function. He was seen in the ER in March 20 for shortness of breath secondary to metastatic melanoma to his lungs with bilateral pleural effusions. Patient has been getting frequent thoracentesis a nd underwent pigtail catheter placement in the left chest in April. He was initially getting fluid removed up to 1 L every day but currently patient is getting fluid removed up to 550 mL once a week, last one 2 days ago. Patient has noticed poor appetite and increased shortness of breath for the past 1 week. He had his Covid booster 6 days ago following which he went to [facility] to have a brain MRI and CT. He received his immunotherapy 3 days ago. He has not recovered since then. His noticed poor appetite increased weakness associated with cough and shortness of breath. Patient was found to have low blood sugar in the low 30s which came back to normal. EKG demonstrated atrial fibrillation In the ER patient is noted to be hypoxic and was placed on 5 L of high flow still saturating at 89%. Otherwise patient is afebrile pulse 66 respiratory rate 18 blood pressure 127/58. He had a leukocytosis of 11, hemoglobin 9.9 platelet 225, BUN 109 creatinine 3.59. Sodium 139 potassium 3.4 chloride 110 bicarb [address] [place] [id number] Chest x-ray on 08/26 suggests cardiomegaly with small left pleural effusion R [id number] interstitial edema concerning for CHF exacerbation was noted. CT chest was obtained that showed bilateral pleural effusion with basilar pulmonary airspace infiltrates and atelectasis significantly increased compared to old exam with cardiomegaly and mediastinotomy edema but the similar to old exam. 08/28: Patient has been seen and followed by cardiology with recommendations to continue current medications. Echocardiogram has been obtained and report is pending. Patient is also followed by nephrology with recommendations to continue diuretics, discontinue Norvasc. Repeat chest x-ray reveals stable bibasilar right greater than left patchy and interstitial opacities with stable moderate cardiomegaly, trace left pleural effusion may be on the basis of mult ifocal pneumonia/atelectasis and/or heart failure. No pneumothorax. Patient has been afebrile, heart rate 62, blood pressure 126/66, pulse ox 94% on 6 L nasal cannula. Plan is to wean oxygen down. Repeat blood work reveals sodium 140, potassium 3.7, chloride 110, CO2 19, BUN 107, creatinine 3.86. Blood sugars are running mostly in the 300s this morning 133. Prandin 1 mg with meals added and Levemir increased to home dose of 35 units at bedtime. Patient has Albright catheter in place which we will have removed today and bladder scan postvoid. Home oxygen assessment to be done. 08/29: Patient is seen today on the cardiac stepdown unit. He is followed by nephrology with recommendations to maintain Albright catheter, avoid hypotension, nephro toxic agents and continue IV fluids at 50 ML's per hour. We have discontinued vancomycin. Patient has also been seen by cardiology. Patient is currently on Zosyn. VQ scan ordered to rule out pulmonary embolism due to ongoing hypoxia. Patient is requiring 6 L nasal cannula with pulse ox of 92%. He's been afebrile, heart rate 66, blood pressure 133/68. Repeat blood work reveals sodium 138, potassium 4.2, chloride 109, CO2 19, BUN 103 and creatinine 4.04. Blood sugars are running between 167 and 249.. Ultrasound of the right lower extremity revealed DVT but could not be determined if this was acute and suggest chronic component. Chest x-ray reveals heart failure underlying pneumonia not excluded. 08/30: She is currently on IV heparin for pulmonary embolism.patient does have history of lower extremity DVT which he states he completed course of anticoagulation. Discussed case with oncology and we will plan for eliquis, prescription is been sent to his pharmacy. Pneumonia has been ruled out and antibiotics will be discontinued. Patient has Albright catheter in place which will be discontinued today if okay with nephrology and check postvoid residual. The blood work reveals WBC 8.5, hemoglobin 8.0. BUN 107, creatinine 4.2, CO2 19. Patient has been seen by PT and OT with recommendations for home. 08/31: Catheter was discontinued this morning and bladder scan is ordered for 1 PM. Patient has increased breath sounds on left-sided chest x-ray ordered today. Renal function is slightly improved from yesterday with BUN of 99 and creatinine 3.99. Hemoglobin 7.6. TSH is 2.740. Patient will be started on eliquis and heparin discontinued. She has been afebrile, heart rate 70, blood pressure 141/76, pulse ox 92% on 4 L nasal cannula. The patient may require home oxygen therapy and we will assess closer to discharge. Renal ultrasound revealed no hydronephrosis or nephrolithiasis. There is increased echogenicity of the renal cortex which can be sutured with chronic medical renal disease. Chest x-ray reveals correlate for heart failure otherwise diffuse pneumonia. Findings stable. 09/01: Patient has been afebrile, heart rate 69, blood pressure 167/79, pulse ox 91%. He is now on 7 L nasal cannula. Ultrasound of the chest will be done to evaluate pleural effusions. Patient was transitioned from heparin drip to eliquis yesterday and oncology wants him on eliquis for life. Patient continues to have lower extremity edema. Repeat blood work reveals BUN of 101, creatinine 3.88, CO2 of 20. Blood sugars are running between 130 and 182. We will ask for Dr. Suarez to evaluate for pneumonia. And patient started on Zosyn. Patient does have pleural cath in place which nurse tried to drain today but no output. ROS Constitutional: Denies chills, Denies fever, endorses lethargy, endorses malaise, Denies poor appetite, endorses weakness, Denies weight loss Eyes: denies decreased vision, denies diplopia, denies discharge, denies pain Ears: deny: decreased hearing Ears, nose, mouth and throat: Denies dental pain, Denies headache, Denies nasal discharge, Denies nose pain Cardiovascular: Denies chest pain, endorses decreased exercise tolerance, endorses bilateral lower extremity edema, Denies high blood pressure, Denies irregular heart beat, Denies palpitations, Denies paroxysmal nocturnal dyspnea, Denies rapid heart beat, reports shortness of breath-improved Respiratory: Denies congestion, endorses dry cough, Denies cough with sputum, endorses dyspnea, Denies home oxygen therapy, Denies wheezing Gastrointestinal: Denies abdominal pain, Denies change in bowel habits, Denies coffee ground emesis, Denies early satiety, Denies excessive gas, Denies heartburn, Denies hematemesis, Denies hematochezia, Denies loss of appetite, Denies nausea, Denies vomiting Genitourinary: Denies dysuria, Denies flank pain, Denies kidney stones, Denies menorrhagia, Denies urgency, Denies urinary frequency Musculoskeletal: Endorses gait dysfunction, Denies limitation of motion, Denies morning stiffness, Denies muscle cramps Integumentary: Denies rash, Denies wounds, Denies brittle nails, Denies change in hair/nails, Denies darkening of skin Neurological: Denies balance difficulties, Denies change in speech, Denies double vision, Denies gait dysfunction, Denies loss of vision, Denies motor disturbance, Denies numbness, Denies paralysis, Denies paresthesias, Denies seizures Psychiatric: Denies anxiety, Denies depression Endocrine: Denies excessive sweating, Denies excessive thirst, noted elevated blood sugars, Denies palpitations Hematologic/Lymphatic: Denies easy bruising, Denies lymphadenopathy Physical exam - Constitutional General appearance: cooperative, no acute distress, on 4 L high flow cannula - EENT Eyes: anicteric sclerae, PERRLA, normal appearance ENT: hearing grossly normal - Neck Neck: no lymphadenopathy, normal ROM, no other, no rigidity, no stridor, no thyromegaly - Respiratory Respiratory: bilateral: Decreased air entry with bilateral crackles involving the left upper and mid lobe with decreased air entry involving the right lung. Dull to percussion. No use of sensory muscles, catheter in the left pleural cavity, no drainage noted - Cardiovascular Rhythm: Irregularly irregular Heart sounds: normal: S1, S2 Abnormal Heart Sounds: no systolic murmur, no diastolic murmur, no rub, no S3 Gallop, no S4 Gallop, no click, no other - Gastrointestinal General gastrointestinal: normal bowel sounds, soft nontender - Integumentary Integumentary: Bilateral lower extremity edema left worse than the right - Neurologic Neurologic: No sensory or motor deficit - Musculoskeletal Musculoskeletal: gait not assessed, strength equal bilaterally - Psychiatric Psychiatric: A&O x's 3, appropriate affect Assessment and plan Acute diastolic heart failure, ejection fraction 55-60% with severe concentric left ventricle hypertrophy and moderate to severe pulmonary hypertension moderate tricuspid regurgitation on October 2020 -Status post Lasix IV - Input and output monitoring - Daily weights - Cardiology consult appreciated Acute hypoxic respiratory failure secondary to CHF exacerbation and bilateral pleural effusions, pulmonary embolism, pneumonia ruled out - Covid negative - Continue DuoNeb as needed for shortness of breath - Lasix daily by nephrology - Sputum culture - Mucinex 1200 twice a day - Discontinue heparin drip and start eliquis Acute kidney injury secondary to ATN with cardiorenal syndrome on chronic kidney disease stage IV secondary to diabetic kidney disease with baseline creatinine 2.5 -avoid nephrotoxic agents - Lasix dose by nephrology -Albright catheter has been discontinued. Patient voiding without difficulty. - Nephrology consult appreciated - Hold oral Lasix New onset paroxysmal atrial fibrillation. - Continue Coreg 12.5 twice a day -No anticoagulation due to history of GI bleed the patient will require an ticoagulation due to pulmonary embolism Metastatic melanoma with metastasis to the lung and lymph nodes enlargement. -On immunotherapy - Follows Dr. Umaña - Consult with oncology Recurrent pleural effusion With pleural cath involving the left pleural cavity unclear if related to melanoma - CT with b/l plueral effusion - Since April 2021, last thoracentesis on 2 days ago was 550 output - Thoracentesis few days to week - Follows cardiothoracic surgeon at the [facility] - Chest ultrasound ordered to reevaluate pleural effusions Hypoglycemia with history Diabetes mellitus type 2, hypoglycemia resolved - Levemir resumed at home dose of 35 units at bedtime - Prandin 1 mg with meals added - Insulin sliding scale - A1c 8.8 - Glucose checked before meals and at bedtime CAD with prior CABG in the past, status post occlusive disease in the LAD, and diagonal branch - followed by cardiology - Continue aspirin, Coreg, Lipitor 80 mg daily Covid infection 19 on 10/18 - Received Covid booster 1 week Uncontrolled hypertension -Coreg 12.5 mg twice daily, hydralazine 25 mg twice daily, Hyperlipidemia - Continue atorvastatin 80 mg daily History of GI bleed, none currently, was previously on Eliquis. Patient on aspirin only DVT prophylaxis - Heparin drip transitioned to eliquis CODE STATUS full code DISCHARGE PLAN Home. Impression and plan of care have been directed as dictated by the signing physician. Marry Andre nurse practitioner acting as scribe for signing physician. Objective - Vital Signs Vital signs: Vital Signs Temp 97.7 F 09/01/21 09:40 Pulse 69 09/01/21 09:40 Resp 18 09/01/21 09:40 BP 167/79 09/01/21 09:40 Pulse Ox 91 L 09/01/21 09:40 Intake & Output 08/31/21 09/01/21 09/01/21 18:59 06:59 18:59 Intake Total 846 240 Output Total 250 675 Balance 596 -675 240 Weight 87.3 kg Intake: Intake, IV Titration 250 Amount Heparin Sod,Pork in 0.45% 250 NaCl 25,000 unit In 0.45 % NaCl 1 250ml.bag @ 18 UNITS/KG/HR 15.48 mls/hr IV .Q16H9M [facility] Rx#: [id number] Oral 596 240 Output: Urine 250 675 Other: Voiding Method Indwelling Catheter Indwelling Catheter Indwelling Catheter - Labs CBC & Chem 7: 08/31/21 06:53 09/01/21 09:05 Labs: Abnormal Lab Results - Last 24 Hours (Table) 08/31/21 08/31/21 08/31/21 Range/Units 06:53 11:53 16:29 Chloride 113 H (98-107) mmol/L Carbon Dioxide 18 L (22-30) mmol/L BUN 99 H (9-20) mg/dL Creatinine 3.99 H (0.66-1.25) mg/dL Glucose (74-99) mg/dL POC Glucose (mg/dL) 143 H 180 H (75-99) mg/dL Calcium 8.3 L (8.4-10.2) mg/dL Iron 26 L (65-175) ug/dL TIBC 157 L (228-460) ug/dL Transferrin 112.0 L (204.0-354.0) mg/dL Ferritin 699.0 H (22.0-322.0) ng/mL 08/31/21 09/01/21 09/01/21 Range/Units 20:03 06:04 09:05 Chloride 113 H (98-107) mmol/L Carbon Dioxide 20 L (22-30) mmol/L BUN 101 H* (9-20) mg/dL Creatinine 3.88 H (0.66-1.25) mg/dL Glucose 130 H (74-99) mg/dL POC Glucose (mg/dL) 182 H 139 H (75-99) mg/dL Calcium (8.4-10.2) mg/dL Iron (65-175) ug/dL TIBC (228-460) ug/dL Transferrin (204.0-354.0) mg/dL Ferritin (22.0-322.0) ng/mL Microbiology - Last 24 Hours (Table) 08/26/21 11:46 Blood Culture - Preliminary Blood No Growth after 120 hours 08/26/21 11:46 Blood Culture - Preliminary Blood No Growth after 120 hours
[2021-09-01 15:22] LABS: Basophils % (A) 0 %; Eosinophils # (A) 0.2 k/uL (0-0.7); Eosinophils % (A) 2 %; HCT 20.6 % (39.0-53.0); HGB 7.1 gm/dL (13.0-17.5); Lymphocytes # (A) 0.3 k/uL (1.0-4.8); Lymphocytes % (A) 4 %; MCHC 34.7 g/dL (31.0-37.0); MCV 83.5 fL (80.0-100.0); Mean Platelet Volume 7.2; Monocytes # (A) 0.4 k/uL (0-1.0); Monocytes % (A) 5 %; Neutrophils % (A) 87 %; Platelet Count 241 k/uL (150-450); Poikilocytosis Slight; RBC 2.46 m/uL (4.30-5.90); RDW 15.6 % (11.5-15.5); WBC 8.1 k/uL (3.8-10.6)
[2021-09-01 16:53] LABS: Glucose,Whole Blood 158 mg/dL (75-99)
[2021-09-01] MEDS ORDERED: SODIUM FERRIC GLUCONAT-SUCROSE 125 MG in SODIUM CHLORIDE 0.9% 100 ML IVPB ONE (18:00)
[2021-09-01] MEDS: DARBEPOETIN ALFA 60 MCG/0.3 ML SYRINGE SQ SCH (18:11)
--- NOTE | 2021-09-01 18:36 | PN ---
PROGRESS NOTE Patient is seen for followup for chronic kidney disease and acute kidney injury. Patient was maintained on IV fluids for a short period of time. This was eventually discontinued 2 days ago secondary to worsening edema. He also has underlying CHF and was initially diuresed on admission for CHF exacerbation. He has had good urine output and there have been no postvoid residuals noted. Serum creatinine today down to 3.8 from 3.9 yesterday, although this morning patient states he has been feeling slightly short of breath. On examination today, blood pressure 168/77, heart rate 69 per minute. He is afebrile. EXAMINATION OF THE HEART: S1 and S2. EXAMINATION OF LUNGS: Decreased breath sounds at the bases. Abdomen is soft, non-tender. Examination of lower extremities shows edema 1+ bilaterally. CARE TRAINER EXAM: Grossly intact. Labs show sodium 142, potassium 4.6, chloride 113, CO2 is 20, BUN 101, serum creatinine 3.8, hemoglobin 7.1 g/dL. ASSESSMENT: 1. Acute kidney injury, mostly acute tubular necrosis and component of cardiorenal syndrome. Renal function had worsened. Therefore patient had IV fluids for about 2 days. Currently fluids are discontinued. He remains with a creatinine of about 3.8 to 3.9, but this morning patient complained of mild shortness of breath. He has had good urine output. No evidence of obstruction noted, and his postvoid residual was not elevated. Patient remains on antibiotics. I have discussed with him regarding possible need for renal replacement therapy down the road if not started this admission. 2. Congestive heart failure exacerbation on initial admission, status post diuresis. 3. Chronic kidney disease secondary to diabetic kidney disease, NKF stage 4. Baseline creatinine about 2.5. 4. Acute on chronic diastolic congestive heart failure with moderate mitral regurgitation and pulmonary hypertension. 5. Pneumonia, maintained on antibiotics. 6. Anemia. No active bleeding noted at this time. Iron saturation was 16 on labs done yesterday. I will give a dose of IV iron and maintain patient on Aranesp. 7. Hypertension, currently controlled. 8. Chronic kidney disease mineral bone disorder. 9. Metabolic acidosis, maintained on oral sodium bicarb. PLAN: Continue off of IV fluids. Discussed renal replacement therapy with the patient. He does not need to start dialysis at this point; however, he may need to start in the near future if not on this hospitalization due to underlying diastolic heart failure and advanced renal failure with difficulty in maintaining volume status. Add Aranesp. Give one dose of IV iron and evaluate daily for need for renal replacement therapy. MMODL / IJN: [id number] /
[2021-09-01 20:17] LABS: Glucose,Whole Blood 180 mg/dL (75-99)
--- NOTE | 2021-09-01 20:22 | P.PN ---
Subjective Progress Note Date: 08/31/21 Principal diagnosis: Hemoglobin continues to slowly trend down since anticoagulation Objective - Vital Signs Vital signs: Vital Signs Temp 97.6 F 08/31/21 08:40 Pulse 70 08/31/21 08:40 Resp 18 08/31/21 08:40 BP 141/76 08/31/21 08:40 Pulse Ox 92 L 08/31/21 08:40 Intake & Output 08/30/21 08/31/21 08/31/21 18:59 06:59 18:59 Intake Total 480 860 486 Output Total 250 350 Balance 230 510 486 Weight 86.2 kg Intake: Intake, IV Titration 500 250 Amount Heparin Sod,Pork in 0.45% 250 NaCl 25,000 unit In 0.45 % NaCl 1 250ml.bag @ 18 UNITS/KG/HR 15.48 mls/hr IV .Q16H9M [facility] Rx#: [id number] Sodium Chloride 0.9% 1, 500 000 ml @ 50 mls/hr IV . Q20H [facility] Rx#:[id number] Oral 480 360 236 Output: Urine 250 350 Other: Voiding Method Indwelling Catheter Indwelling Catheter - Exam Alert nad head-supple trachea midline lungs diminished, pleurex abd soft Ext, mild - Labs CBC & Chem 7: 09/01/21 14:26 09/01/21 09:05 Labs: Abnormal Lab Results - Last 24 Hours (Table) 08/30/21 08/30/21 08/30/21 Range/Units 10:39 10:39 10:44 RBC 2.80 L (4.30-5.90) m/uL Hgb 8.0 L (13.0-17.5) gm/dL Hct 23.3 L (39.0-53.0) % Lymphocytes # 0.3 L (1.0-4.8) k/uL APTT 58.3 H (22.0-30.0) sec Chloride 111 H (98-107) mmol/L Carbon Dioxide 19 L (22-30) mmol/L BUN 107 H* (9-20) mg/dL Creatinine 4.24 H (0.66-1.25) mg/dL Glucose 155 H (74-99) mg/dL POC Glucose (mg/dL) (75-99) mg/dL Total Protein 5.6 L (6.3-8.2) g/dL Albumin 2.7 L (3.5-5.0) g/dL 08/30/21 08/30/21 08/30/21 Range/Units 11:52 16:38 20:40 RBC (4.30-5.90) m/uL Hgb (13.0-17.5) gm/dL Hct (39.0-53.0) % Lymphocytes # (1.0-4.8) k/uL APTT (22.0-30.0) sec Chloride (98-107) mmol/L Carbon Dioxide (22-30) mmol/L BUN (9-20) mg/dL Creatinine (0.66-1.25) mg/dL Glucose (74-99) mg/dL POC Glucose (mg/dL) 191 H 215 H 161 H (75-99) mg/dL Total Protein (6.3-8.2) g/dL Albumin (3.5-5.0) g/dL 08/31/21 08/31/21 08/31/21 Range/Units 06:17 06:53 06:53 RBC 2.67 L (4.30-5.90) m/uL Hgb 7.6 L (13.0-17.5) gm/dL Hct 22.1 L (39.0-53.0) % Lymphocytes # 0.4 L (1.0-4.8) k/uL APTT 48.1 H (22.0-30.0) sec Chloride (98-107) mmol/L Carbon Dioxide (22-30) mmol/L BUN (9-20) mg/dL Creatinine (0.66-1.25) mg/dL Glucose (74-99) mg/dL POC Glucose (mg/dL) 113 H (75-99) mg/dL Total Protein (6.3-8.2) g/dL Albumin (3.5-5.0) g/dL Microbiology - Last 24 Hours (Table) 08/26/21 11:46 Blood Culture - Preliminary Blood No Growth after 96 hours 08/26/21 11:46 Blood Culture - Preliminary Blood No Growth after 96 hours Assessment and Plan (1) Metastatic melanoma Current Visit: Yes Status: Acute Code(s): C79.9 - SECONDARY MALIGNANT NEOPLASM OF UNSPECIFIED SITE SNOMED Code(s): 187925005 (2) Acute kidney injury Current Visit: No Status: Acute Code(s): N17.9 - ACUTE KIDNEY FAILURE, UNSPECIFIED SNOMED Code(s): 53239664 Plan: Will recheck Hemoglobin today and monitor CBC He will unfortunetly need lifelong anticoagulation given his known underlying malignancy, this has been discussed with patient and primary team in detail With decreasing hemoglobin check anemia work-up He will return to [facility] for continued management of metastatic Melanoma. Continuation Keytruda
[2021-09-01] MEDS: INSULIN DETEMIR (LEVEMIR) 100 UNIT/ML SYR SQ SCH (20:41)
[2021-09-02] MEDS: INSULIN ASPART (NovoLOG) 100 UNIT/ML VIAL SQ SCH ×3 (06:35→16:45)
[2021-09-02 06:36] LABS: Glucose,Whole Blood 100 mg/dL (75-99)
[2021-09-02] MEDS: REPAGLINIDE 1 MG TAB PO SCH ×3 (06:38→16:45)
[2021-09-02] MEDS: carvediloL 12.5 MG TAB PO SCH ×2 (06:38→16:45)
[2021-09-02] MEDS: SODIUM BICARBONATE TAB 650 MG TAB PO SCH ×2 (07:55→20:39)
[2021-09-02] MEDS: ATORVASTATIN 80 MG TAB PO SCH (07:55)
[2021-09-02] MEDS: ASPIRIN 81 MG PO SCH (07:55)
[2021-09-02] MEDS: hydrALAZINE HCL 25 MG TAB PO SCH ×2 (07:55→20:39)
[2021-09-02] MEDS: APIXABAN 5 MG TAB PO SCH ×2 (07:55→20:38)
--- NOTE | 2021-09-02 09:25 | P.CONS ---
History of Present Illness - Reason for Consult Consult date: 09/01/21 pneumonia Requesting physician: Olesya Byrd - Chief Complaint weakness x days - History of Present Illness History of present illness : Patient is 71-year-old male with a past medical history significant for malignant melanoma with metastasis to the lung and the brain in this patient who did have a management left-sided effusion and did have a Pleurx catheter for drainage, patient presenting to the ER about a week ago for evaluation of mental status changes in this patient EMS found the patient blood sugar to be in the 30s patient subsequently did have a chest x-ray on admission to the hospital cardiomegaly with small left pleural effusion improved from prior suspect mild to moderate interstitial edema correlate for CHF and the patient has been treated by the cardiology nephrology services in this patient did not have any fever during this hospital stay patient did have mild elevated white count on admission of 11 subsequent white count has normal ized procalcitonin was 0.25 as of today urine has been negative frazier PCR was negative patient has been treated with Zosyn and vancomycin which has been subsequent discontinued infectious disease was consulted today after the patient has been hospital for about a week with concern for pneumonia patient denies having any chest pain patient denies having any cough or sputum production patient has been complaining of decreased output from his Pleurx catheter has been hardly draining any fluid since Saturday patient did have a chest ultrasound small right pleural effusion and small left effusion with interstitial septations Review of system: CONSTITUTIONAL: Positive for weakness denies fever. EYES: No complaint. ENT: No complaint. RESPIRATORY as per history of present illness. CARDIOVASCULAR: No complaint. GENITOURINARY: No complaint. GASTROINTESTINAL: No complaint. MUSCULOSKELETAL: No complaint. INTEGUMENTARY: No complaint. PSYCHOLOGIC: No complaint. ENDOCRINE: No complaint. NEUROLOGIC: No complaint. Past medical history : Reviewed, documented below Past surgical history : Reviewed, documented below Social history: Reviewed, documented below Medications: Reviewed, as documented below EXAMINATION: Vital sigans= Reviewed and documented below GENERAL DESCRIPTION: Elderly male lying in bed, no distress. No tachypnea or accessory muscle of respiration use. HEENT: Shows Pallor , no scleral icterus. Oral mucous membrane is dry. NECK: Trachea central, no thyromegaly. LUNGS: Unlabored breathing. Decreased breath sound at the base. No wheeze or crackle. HEART: S1, S2, regular rate and rhythm. ABDOMEN: Soft, no tenderness , guarding or rigidity EXTREMITIES: No edema of feet. SKIN: No rash, no masses palpable. NEUROLOGICAL: The patient is awake, alert, oriented x3, mood and affect normal. LABS AND RADIOLOGY: Reviewed results see below Assessment : Patient is a 79 male with a past medical history of treatment for malignant melanoma with mets to the brain and the lung with a malignant effusion on the left side and did have Pleurx catheter patient admit [facility] to hospital with low blood sugar and mental status changes patient did not have any fever during this hospital stay and did have a normal white count focus is mild elevated 0.25 clinically doubt pneumonia or empyema as the patient does not look toxic Plan: 1-we will sign pleural fluid for cell count differential Gram stain and culture 2-May continue Zosyn at this point while work-up is completed We will follow on clinical condition and cultures to further adjust medication if needed Thank you for this consultation we will follow the patient along with you Past Medical History Past Medical History: Coronary Artery Disease (CAD), Cancer, Diabetes Mellitus, Eye Disorder, GERD/Reflux, GI Bleed, Hyperlipidemia, Hypertension, Myocardial Infarction ([place]), Osteoarthritis (OA), Renal Disease Additional Past Medical History / Comment(s): glaucoma in the left eye, stage III chronic kidney disease, Melanoma on back R ear and abd removed, covid Last Myocardial Infarction Date:: 2015 History of Any Multi-Drug Resistant Organisms: None Reported Past Surgical History: Adenoidectomy, Appendectomy, Heart Catheterization, Heart Catheterization With Stent, Orthopedic Surgery, Tonsillectomy Additional Past Surgical History / Comment(s): tumor from L shoulder, bilateral carpel tunnel, colonoscopy, R knee arthroscopy;CA removed from R ear back & abdomen; cataract L eye, liver biopsy on 08/14/18 Past Anesthesia/Blood Transfusion Reactions: No Reported Reaction Date of Last Stent Placement:: 12/07/15 Past Psychological History: No Psychological Hx Reported Additional Psychological History / Comment(s): Pt resides with his spouse. He works at [employer]. He is independent. Smoking Status: Never smoker Past Alcohol Use History: Occasional Past Drug Use History: None Reported - Past Family History Father Family Medical History: No Reported History Additional Family Medical History / Comment(s): Father was a heavy smoker. He was at age 70. Mother Family Medical History: No Reported History Additional Family Medical History / Comment(s): Mother is alive and is 92 yrs old. Medications and Allergies Home Medications Medication Instructions Recorded Confirmed Type Atorvastatin [Lipitor] 80 mg PO DAILY 04/30/17 08/26/21 History Aspirin EC [Ecotrin Low Dose] 81 mg PO DAILY 10/18/20 08/26/21 History Ergocalciferol [Vitamin D2 (1250 1,250 mcg PO HERBERT 03/16/21 08/26/21 History Mcg = 28720 Iu)] Furosemide [Lasix] 40 mg PO Q48H 08/26/21 08/26/21 History Insulin Detemir [Levemir Flextouch 35 units SQ HS 08/26/21 08/26/21 History Pen] amLODIPine [Norvasc] 10 mg PO DAILY 08/26/21 08/26/21 History calcitrioL [Calcitriol] 0.25 mcg PO HERBERT 08/26/21 08/26/21 History carvediloL [Coreg*] 12.5 mg PO BID 08/26/21 08/26/21 History hydrALAZINE HCL [Apresoline] 25 mg PO BID 08/26/21 08/26/21 History Apixaban [Eliquis Starter Pack 5 - 10 mg PO DIRECTED 30 Days 08/30/21 Rx (for VTE)] #1 each Allergies Allergy/AdvReac Type Severity Reaction Status Date / Time No Known Allergies Allergy Verified 08/26/21 14:19 Physical Exam Vitals: Vital Signs Temp Pulse Pulse Pulse Resp BP Pulse Ox 09/02/21 08:00 68 19 09/02/21 07:57 98.4 F 68 19 147/76 92 L 09/02/21 04:00 97.8 F 67 18 160/71 92 L 09/02/21 00:00 97.9 F 64 18 162/73 94 L 09/01/21 20:00 97.8 F 66 68 18 163/74 93 L 09/01/21 16:00 97.9 F 69 18 168/77 95 09/01/21 12:00 97.9 F 67 18 168/78 94 L 09/01/21 09:40 97.7 F 69 16 167/79 91 L Intake and Output 09/01/21 09/02/21 09/02/21 22:59 06:59 14:59 Output Total 500 250 Balance -500 -250 Output: Urine 500 250 Other: Voiding Method Toilet Toilet Toilet Urinal Urinal Urinal Weight 88.5 kg Results CBC & Chem 7: 09/01/21 14:26 09/01/21 09:05 Labs: Abnormal Lab Results - Last 24 Hours (Table) 09/01/21 09/01/21 09/01/21 Range/Units 09:05 09:05 11:38 RBC (4.30-5.90) m/uL Hgb (13.0-17.5) gm/dL Hct (39.0-53.0) % RDW (11.5-15.5) % Lymphocytes # (1.0-4.8) k/uL Chloride 113 H (98-107) mmol/L Carbon Dioxide 20 L (22-30) mmol/L BUN 101 H* (9-20) mg/dL Creatinine 3.88 H (0.66-1.25) mg/dL Glucose 130 H (74-99) mg/dL POC Glucose (mg/dL) 144 H (75-99) mg/dL Procalcitonin 0.25 H (0.02-0.09) ng/mL 09/01/21 09/01/21 09/01/21 Range/Units 14:26 16:42 19:50 RBC 2.46 L (4.30-5.90) m/uL Hgb 7.1 L (13.0-17.5) gm/dL Hct 20.6 L (39.0-53.0) % RDW 15.6 H (11.5-15.5) % Lymphocytes # 0.3 L (1.0-4.8) k/uL Chloride (98-107) mmol/L Carbon Dioxide (22-30) mmol/L BUN (9-20) mg/dL Creatinine (0.66-1.25) mg/dL Glucose (74-99) mg/dL POC Glucose (mg/dL) 158 H 180 H (75-99) mg/dL Procalcitonin (0.02-0.09) ng/mL 09/02/21 Range/Units 06:33 RBC (4.30-5.90) m/uL Hgb (13.0-17.5) gm/dL Hct (39.0-53.0) % RDW (11.5-15.5) % Lymphocytes # (1.0-4.8) k/uL Chloride (98-107) mmol/L Carbon Dioxide (22-30) mmol/L BUN (9-20) mg/dL Creatinine (0.66-1.25) mg/dL Glucose (74-99) mg/dL POC Glucose (mg/dL) 100 H (75-99) mg/dL Procalcitonin (0.02-0.09) ng/mL Microbiology - Last 24 Hours (Table) 09/01/21 12:00 Body Fluid Culture - Preliminary Pleural Fluid 08/26/21 11:46 Blood Culture - Final Blood No Growth after 144 hours 08/26/21 11:46 Blood Culture - Final Blood No Growth after 144 hours
[2021-09-02 10:54] LABS: Basophils % (A) 1 %; Eosinophils # (A) 0.3 k/uL (0-0.7); Eosinophils % (A) 3 %; HCT 20.2 % (39.0-53.0); Hypochromasia Slight; Lymphocytes # (A) 0.3 k/uL (1.0-4.8); Lymphocytes % (A) 4 %; MCH 27.9 pg (25.0-35.0); MCHC 32.9 g/dL (31.0-37.0); MCV 84.7 fL (80.0-100.0); Mean Platelet Volume 7.2; Monocytes # (A) 0.6 k/uL (0-1.0); Monocytes % (A) 7 %; Neutrophils # (A) 7.3 k/uL (1.3-7.7); Neutrophils % (A) 84 %; Platelet Count 222 k/uL (150-450); Poikilocytosis Slight; RBC 2.39 m/uL (4.30-5.90); RDW 15.7 % (11.5-15.5); WBC 8.7 k/uL (3.8-10.6)
[2021-09-02 11:15] LABS: HGB 6.7 gm/dL (13.0-17.5)
[2021-09-02 11:45] LABS: Glucose,Whole Blood 179 mg/dL (75-99)
[2021-09-02] MEDS: PIPERACILLIN-TAZOBACTAM 3.375 GM in SODIUM CHLORIDE 0.9% 100 ML IVPB SCH (11:52)
--- NOTE | 2021-09-02 12:54 | PN ---
PROGRESS NOTE Patient is seen for followup for acute kidney injury and volume overload. Patient was diuresed. His renal function had worsened; therefore, he had IV fluids for about 24 to 36 hours, but his legs are more swollen now and serum creatinine, although slightly improved, is still staying up at about 3.8 from yesterday. No labs available today. Patient has been voiding. There is no urine retention. His hemoglobin was down to 6.7, which definitely contributed further to acute kidney injury. I discussed renal replacement therapy with the patient yesterday, given his ongoing issues with volume overload and worsening renal failure. He is agreeable if the dialysis needs to be started. On examination today, blood pressure 147/76, heart rate 68 per minute. Patient is afebrile. EXAMINATION OF THE HEART: S1 and S2. EXAMINATION OF LUNGS: Decreased breath sounds at the bases. Abdomen is soft. Examination of lower extremities shows edema 2+ bilaterally. [employer] SPECIALIST EXAM: Grossly intact. Labs not available from today. We have a CBC showing hemoglobin of 6.7 g/dL. ASSESSMENT: 1. Acute kidney injury, cardiorenal and acute tubular necrosis, with some improvement in renal function with IV hydration after diuresis, but currently with volume overload again. Repeat labs today. Patient is agreeable to starting dialysis if needed. This will be decided based on his repeat labs. He is currently volume- overloaded again and I will give him a dose of IV Lasix today. 2. Metabolic acidosis, maintained on oral sodium bicarb. 3. Anemia. No active bleeding noted currently. Receiving packed RBCs transfusion today. Iron saturation was low at 16% on 08/31/2021, status post IV iron and maintained on Aranesp. 4. Hypertension, maintained on hydralazine. 5. Malignant melanoma with metastases to the brain. PLAN: Lasix IV x1. Check labs today. Consider starting dialysis, given the ongoing hypervolemia and worsening renal function. Patient's creatinine was slightly lower yesterday. However, he received IV fluids for about 24 hours and is currently volume- overloaded again. MMODL / IJN: [id number] /
--- NOTE | 2021-09-02 13:49 | P.PN ---
Subjective Progress Note Date: 09/02/21 HISTORY OF PRESENT ILLNESS: This is a 71-year-old male who sees Dr. Xiong in the office. Patient is admitted to the hospital secondary to CHF, shortness of breath, and atrial fibrillation. Patient had an echocardiogram completed in July 2021 revealing ejection fraction 55-60%. Repeat echocardiogram is pending. Patient currently denies chest pain or pressure. He denies shortness of breath. Telemetry reveals sinus mechanism. Patient is not on anticoagulation secondary to a history of GI bleed per internal medicine's notes. The patient received a one-time dose of Lasix per nephrology. Creatinine today 3.86. 08/29/2021 Patient examined this morning at the bedside. He denies chest pain or pressure. Denies shortness of breath. He remains on 6L NC with oxygen saturations greater than 92%. Telemetry reveals sinus mechanism. Creatinine 4.04. Nephrology following. Repeat echo revealed EF 55-60%. 08/30/2021 Patient examined this morning at the bedside. He denies chest pain or pressure. Denies shortness of breath. He remains on 6L NC with oxygen saturations greater than 92%. Blood pressure 144/65. Patient underwent right lower extremity Doppler revealing lack of compression and thrombus within the left popliteal vein compatible with DVT although acute DVT cannot be excluded as does appear to be improved from prior exam of 2018 suggesting chronic component. VQ scan performed revealing high probability for pulmonary embolism. Patient was started on IV heparin per internal medicine 08/31/2021 Patient examined this morning. He is sitting up in the chair. He denies chest pain or pressure. Denies shortness of breath. He remains on IV heparin. Plan is to transition to Eliquis at discharge. Vital signs are stable. Creatinine 3.99. BUN 99. 09/01/2021 Patient examined this morning at the bedside. Patient denies chest pain or pressure. He denies shortness of breath. He has been transitioned to Eliquis. Telemetry reveals sinus mechanism. Blood pressure 167/79. BUN 101. Creatinine 3.88. 09/02/2021 Patient examined at the bedside today resting. Patient denies chest pain, palpitations, dyspnea, dizziness, or syncope. Patient remains on Eliquis for anticoagulation. Telemetry reviewed patient is in sinus rhythm with a controlled rate. Patient remains on 7 L high flow oxygen is 91%, blood pressure is 147/67, heart rate 68, temperature 98.4. Objective - Vital Signs Vital signs: Vital Signs Temp 97.7 F 09/02/21 12:00 Pulse 66 09/02/21 12:00 Resp 18 09/02/21 12:00 BP 160/73 09/02/21 12:00 Pulse Ox 91 L 09/02/21 12:00 Intake & Output 09/01/21 09/02/21 09/02/21 18:59 06:59 18:59 Intake Total 1440 Output Total 500 250 Balance 940 -250 Weight 88.5 kg Intake: Oral 1440 Output: Urine 500 250 Other: Voiding Method Indwelling Catheter Toilet Toilet Urinal Urinal - Exam PHYSICAL EXAM: VITAL SIGNS: Reviewed. GENERAL: Well-developed in no acute distress. NECK: Supple. No JVD or thyromegaly LUNGS: Respirations even and unlabored. Lungs diminished to auscultation bilaterally. HEART: Regular rate and rhythm. S1 and S2 heard. EXTREMITIES: Normal range of motion. No clubbing or cyanosis. Peripheral pulses intact. Trace lower extremity edema - Labs CBC & Chem 7: 09/02/21 10:04 09/01/21 09:05 Labs: Abnormal Lab Results - Last 24 Hours (Table) 09/01/21 09/01/21 09/01/21 Range/Units 09:05 14:26 16:42 RBC 2.46 L (4.30-5.90) m/uL Hgb 7.1 L (13.0-17.5) gm/dL Hct 20.6 L (39.0-53.0) % RDW 15.6 H (11.5-15.5) % Lymphocytes # 0.3 L (1.0-4.8) k/uL POC Glucose (mg/dL) 158 H (75-99) mg/dL Procalcitonin 0.25 H (0.02-0.09) ng/mL Crossmatch 09/01/21 09/02/21 09/02/21 Range/Units 19:50 06:33 10:04 RBC 2.39 L (4.30-5.90) m/uL Hgb 6.7 L* (13.0-17.5) gm/dL Hct 20.2 L (39.0-53.0) % RDW 15.7 H (11.5-15.5) % Lymphocytes # 0.3 L (1.0-4.8) k/uL POC Glucose (mg/dL) 180 H 100 H (75-99) mg/dL Procalcitonin (0.02-0.09) ng/mL Crossmatch 09/02/21 09/02/21 Range/Units 11:44 11:45 RBC (4.30-5.90) m/uL Hgb (13.0-17.5) gm/dL Hct (39.0-53.0) % RDW (11.5-15.5) % Lymphocytes # (1.0-4.8) k/uL POC Glucose (mg/dL) 179 H (75-99) mg/dL Procalcitonin (0.02-0.09) ng/mL Crossmatch See Detail Microbiology - Last 24 Hours (Table) 09/01/21 12:00 Body Fluid Culture - Preliminary Pleural Fluid 08/26/21 11:46 Blood Culture - Final Blood No Growth after 144 hours 08/26/21 11:46 Blood Culture - Final Blood No Growth after 144 hours Assessment and Plan Assessment: ASSESSMENT: Dyspnea Pneumonia Pulmonary embolism Acute exacerbation of chronic diastolic congestive heart failure, ejection frac tion 55-60% New-onset paroxysmal atrial fibrillation, currently maintaining sinus mechanism History of GI bleed Metastatic melanoma with metastasis to the lung and lymph nodes Recurrent pleural effusion with pleural cath Diabetes Hypertension Hyperlipidemia History of Covid Coronary artery disease with previous CABG and PCI Acute on chronic kidney disease History of DVT Plan: PLAN: Patient has been transitioned to Eliquis for treatment of PE Increase hydralazine to 50 mg twice a day for optimal blood pressure control. Given additional dose of 25 mg now Continue current cardiac medications Monitor kidney function. Diuretic management per nephrology: currently off diuretics Further recommendations pending patient course Nurse practitioner note has been reviewed by physician. Signing provider agrees with the documented findings, assessment, and plan of care.
--- NOTE | 2021-09-02 14:29 | P.PN ---
Subjective Progress Note Date: 09/02/21 History of present illness This is a 71-year-old gentleman patient of Dr. Wyatt Pereira. He has underlying history of diabetes mellitus type 2, CAD with prior CABG, CK D stage III, hypertension, history of melanoma was in remission until March when patient was noted to have metastatic melanoma with metastases to the lung with enlarged lymph nodes currently on immunotherapy. Patient had recent covid infection in September, with acute kidney injury secondary to covid infection September 2020 and follow Ernie since then. Patient was again admitted in November 09 for 2 days for acute diastolic congestive heart failure secondary to withdrawal off diuretics due to worsening kidney function. He was seen in the ER in March 20 for shortness of breath secondary to metastatic melanoma to his lungs with bilateral pleural effusions. Patient has been getting frequent thoracentesis an d underwent pigtail catheter placement in the left chest in April. He was initially getting fluid removed up to 1 L every day but currently patient is getting fluid removed up to 550 mL once a week, last one 2 days ago. Patient has noticed poor appetite and increased shortness of breath for the past 1 week. He had his Covid booster 6 days ago following which he went to [facility] to have a brain MRI and CT. He received his immunotherapy 3 days ago. He has not recovered since then. His noticed poor appetite increased weakness associated with cough and shortness of breath. Patient was found to have low blood sugar in the low 30s which came back to normal. EKG demonstrated atrial fibrillation In the ER patient is noted to be hypoxic and was placed on 5 L of high flow still saturating at 89%. Otherwise patient is afebrile pulse 66 respiratory rate 18 blood pressure 127/58. He had a leukocytosis of 11, hemoglobin 9.9 platelet 225, BUN 109 creatinine 3.59. Sodium 139 potassium 3.4 chloride 110 bicarb 18 [place] [id number] Chest x-ray on 08/26 suggests cardiomegaly with small left pleural effusion R [id number] interstitial edema concerning for CHF exacerbation was noted. CT chest was obtained that showed bilateral pleural effusion with basilar pulmonary airspace infiltrates and atelectasis significantly increased compared to old exam with cardiomegaly and mediastinotomy edema but the similar to old exam. 08/28: Patient has been seen and followed by cardiology with recommendations to continue current medications. Echocardiogram has been obtained and report is pending. Patient is also followed by nephrology with recommendations to continue diuretics, discontinue Norvasc. Repeat chest x-ray reveals stable bibasilar right greater than left patchy and interstitial opacities with stable moderate cardiomegaly, trace left pleural effusion may be on the basis of multi focal pneumonia/atelectasis and/or heart failure. No pneumothorax. Patient has been afebrile, heart rate 62, blood pressure 126/66, pulse ox 94% on 6 L nasal cannula. Plan is to wean oxygen down. Repeat blood work reveals sodium 140, potassium 3.7, chloride 110, CO2 19, BUN 107, creatinine 3.86. Blood sugars are running mostly in the 300s this morning 133. Prandin 1 mg with meals added and Levemir increased to home dose of 35 units at bedtime. Patient has Albright catheter in place which we will have removed today and bladder scan postvoid. Home oxygen assessment to be done. 08/29: Patient is seen today on the cardiac stepdown unit. He is followed by nephrology with recommendations to maintain Albright catheter, avoid hypotension, nephro toxic agents and continue IV fluids at 50 ML's per hour. We have discontinued vancomycin. Patient has also been seen by cardiology. Patient is currently on Zosyn. VQ scan ordered to rule out pulmonary embolism due to ongoing hypoxia. Patient is requiring 6 L nasal cannula with pulse ox of 92%. He's been afebrile, heart rate 66, blood pressure 133/68. Repeat blood work reveals sodium 138, potassium 4.2, chloride 109, CO2 19, BUN 103 and creatinine 4.04. Blood sugars are running between 167 and 249.. Ultrasound of the right lower extremity revealed DVT but could not be determined if this was acute and suggest chronic component. Chest x-ray reveals heart failure underlying pneumonia not excluded. 08/30: Patient is currently on IV heparin for pulmonary embolism.patient does have history of lower extremity DVT which he states he completed course of anticoagulation. Discussed case with oncology and we will plan for eliquis, prescription is been sent to his pharmacy. Pneumonia has been ruled out and antibiotics will be discontinued. Patient has Albright catheter in place which will be discontinued today if okay with nephrology and check postvoid residual. The blood work reveals WBC 8.5, hemoglobin 8.0. BUN 107, creatinine 4.2, CO2 19. Patient has been seen by PT and OT with recommendations for home. 08/31: Catheter was discontinued this morning and bladder scan is ordered for 1 PM. Patient has increased breath sounds on left-sided chest x-ray ordered today. Renal function is slightly improved from yesterday with BUN of 99 and creatinine 3.99. Hemoglobin 7.6. TSH is 2.740. Patient will be started on eliquis and heparin discontinued. She has been afebrile, heart rate 70, blood pressure 141/76, pulse ox 92% on 4 L nasal cannula. The patient may require home oxygen therapy and we will assess closer to discharge. Renal ultrasound revealed no hydronephrosis or nephrolithiasis. There is increased echogenicity of the renal cortex which can be sutured with chronic medical renal disease. Chest x-ray reveals correlate for heart failure otherwise diffuse pneumonia. Findings stable. 09/01: Patient has been afebrile, heart rate 69, blood pressure 167/79, pulse ox 91%. He is now on 7 L nasal cannula. Ultrasound of the chest will be done to evaluate pleural effusions. Patient was transitioned from heparin drip to eliquis yesterday and oncology wants him on eliquis for life. Patient continues to have lower extremity edema. Repeat blood work reveals BUN of 101, creatinine 3.88, CO2 of 20. Blood sugars are running between 130 and 182. We will ask for Dr. Suarez to evaluate for pneumonia. And patient started on Zosyn. Patient does have pleural cath in place which nurse tried to drain today but no output. 09/02: Hemoglobin this morning is 6.7 and patient will be transfused 1 unit of packed RBCs. Repeat blood work for tomorrow.Blood glucose ran between 100 and 180. One dose of IV Lasix ordered by nephrology. Review Of Systems: Constitutional: No fever, no chills, no night sweats. No weight change. Reports weakness,Reports fatigue no lethargy. No daytime sleepiness. EENT: No headache. No blurred vision or double vision, no loss of vision. No loss of Hearing, no ringing in the ears, no dizziness. No nasal drainage or congestion. No epistaxis. No sore throat. Lungs: No shortness of breath, cough, no sputum production. No wheezing. Cardiovascular: No chest pain, no lower extremity edema. No palpitations. No paroxysmal nocturnal dyspnea. No orthopnea. No lightheadedness or dizziness. No syncopal episodes. Abdominal: No abdominal pain. No nausea, vomiting. No diarrhea. No constipation. No bloody or tarry stools.. No loss of appetite. Genitourinary: No dysuria, increased frequency, urgency. No urinary retention. Musculoskeletal: No myalgias. Reports muscle weakness, no gait dysfunction, no frequent falls. No back pain. No neck pain. Integumentary: No wounds, no lesions. No rash or pruritus. No unusual bruising. No change in hair or nails. Neurologic: No aphasia. No facial droop. No change in mentation. No head injury. No headache. No paralysis. No paresthesia. Psychiatric: No depression. No anxiety. No mood swings. Endocrine: Noted abnormal blood sugars. No weight change. No excessive sweating or thirst. No cold intolerance. Physical exam Gen: This is a 71-year-old male. He is resting in recliner appears to be fairly comfortable. He is currently on O2 at 7 L. HEENT: Head is atraumatic, normocephalic. Pupils equal, round. Sclerae is anicteric. NECK: Supple. No JVD. No lymphadenopathy. No thyromegaly. LUNGS: Decreased breath sounds bilaterally with bilateral crackles in the bases. Pleural catheter in the left side. No drainage. No intercostal retractions. HEART: Irregularly irregular rate and rhythm. No murmur. ABDOMEN: Soft. Bowel sounds are present. No masses. No tenderness. EXTREMITIES: Bilateral pedal edema. No calf tenderness. NEUROLOGICAL: Patient is awake, alert and oriented x3. Cranial nerves 2 through 12 are grossly intact. - Constitutional Assessment and plan Acute diastolic heart failure, ejection fraction 55-60% with severe concentric left ventricle hypertrophy and moderate to severe pulmonary hypertension moderate tricuspid regurgitation on October 2020 -Status post Lasix IV - Input and output monitoring - Daily weights - Cardiology consult appreciated Acute hypoxic respiratory failure secondary to CHF exacerbation and bilateral pleural effusions, pulmonary embolism, pneumonia ruled out - Covid negative - Continue DuoNeb as needed for shortness of breath - Lasix daily by nephrology - Sputum culture - Mucinex 1200 twice a day - Discontinue heparin drip and start eliquis Acute kidney injury secondary to ATN with cardiorenal syndrome on chronic kidney disease stage IV secondary to diabetic kidney disease with baseline creatinine 2.5 -avoid nephrotoxic agents - Lasix dose by nephrology -Albright catheter has been discontinued. Patient voiding without difficulty. - Nephrology consult appreciated - Hold oral Lasix New onset paroxysmal atrial fibrillation. - Continue Coreg 12.5 twice a day -No anticoagulation due to history of GI bleed the patient will require anticoagulation due to pulmonary embolism Metastatic melanoma with metastasis to the lung and lymph nodes enlargement. -On immunotherapy - Follows Dr. Umaña - Consult with oncology Recurrent pleural effusion With pleural cath involving the left pleural cavity unclear if related to melanoma - CT with b/l plueral effusion - Since April 2021, last thoracentesis on 2 days ago was 550 output - Thoracentesis few days to week - Follows cardiothoracic surgeon at [facility] - Chest ultrasound ordered to reevaluate pleural effusions Hypoglycemia with history Diabetes mellitus type 2, hypoglycemia resolved - Levemir resumed at home dose of 35 units at bedtime - Prandin 1 mg with meals added - Insulin sliding scale - A1c 8.8 - Glucose checked before meals and at bedtime Anemia of kidney disease. Patient is status post iron infusion, 1 unit of packed RBCs ordered for today. Continue Aranesp. CAD with prior CABG in the past, status post occlusive disease in the LAD, and diagonal branch - followed by cardiology - Continue aspirin, Coreg, Lipitor 80 mg daily Covid infection 19 on 10/18 - Received Covid booster 1 week Uncontrolled hypertension -Coreg 12.5 mg twice daily, hydralazine 25 mg twice daily, Hyperlipidemia - Continue atorvastatin 80 mg daily History of GI bleed, none currently, was previously on Eliquis. Patient on aspirin only DVT prophylaxis - Heparin drip transitioned to eliquis CODE STATUS full code DISCHARGE PLAN Home. Impression and plan of care have been directed as dictated by the signing physician. Marry Andre nurse practitioner acting as scribe for signing physician. Objective - Vital Signs Vital signs: Vital Signs Temp 98.4 F 09/02/21 07:57 Pulse 68 09/02/21 08:00 Resp 19 09/02/21 08:00 BP 147/76 09/02/21 07:57 Pulse Ox 92 L 09/02/21 07:57 Intake & Output 09/01/21 09/02/21 09/02/21 18:59 06:59 18:59 Intake Total 1440 Output Total 500 250 Balance 940 -250 Weight 88.5 kg Intake: Oral 1440 Output: Urine 500 250 Other: Voiding Method Indwelling Catheter Toilet Toilet Urinal Urinal - Labs CBC & Chem 7: 09/02/21 10:04 09/01/21 09:05 Labs: Abnormal Lab Results - Last 24 Hours (Table) 09/01/21 09/01/21 09/01/21 Range/Units 09:05 11:38 14:26 RBC 2.46 L (4.30-5.90) m/uL Hgb 7.1 L (13.0-17.5) gm/dL Hct 20.6 L (39.0-53.0) % RDW 15.6 H (11.5-15.5) % Lymphocytes # 0.3 L (1.0-4.8) k/uL POC Glucose (mg/dL) 144 H (75-99) mg/dL Procalcitonin 0.25 H (0.02-0.09) ng/mL 09/01/21 09/01/21 09/02/21 Range/Units 16:42 19:50 06:33 RBC (4.30-5.90) m/uL Hgb (13.0-17.5) gm/dL Hct (39.0-53.0) % RDW (11.5-15.5) % Lymphocytes # (1.0-4.8) k/uL POC Glucose (mg/dL) 158 H 180 H 100 H (75-99) mg/dL Procalcitonin (0.02-0.09) ng/mL Microbiology - Last 24 Hours (Table) 09/01/21 12:00 Body Fluid Culture - Preliminary Pleural Fluid 08/26/21 11:46 Blood Culture - Final Blood No Growth after 144 hours 08/26/21 11:46 Blood Culture - Final Blood No Growth after 144 hours
[2021-09-02 16:38] LABS: Glucose,Whole Blood 185 mg/dL (75-99)
[2021-09-02] MEDS: INSULIN DETEMIR (LEVEMIR) 100 UNIT/ML SYR SQ SCH (20:42)
[2021-09-02 20:49] LABS: Glucose,Whole Blood 175 mg/dL (75-99)
--- NOTE | 2021-09-02 21:41 | PN ---
PROGRESS NOTE DATE OF SERVICE: 09/02/2021 REASON FOR FOLLOWUP: Possible pneumonia. INTERVAL HISTORY: The patient is afebrile. The patient is breathing slightly comfortably. The patient denies having any chest pain. No worsening cough or sputum production. No abdominal pain and no diarrhea. PHYSICAL EXAMINATION: Blood pressure 174/75 with a pulse of 73, temperature 97.8. He is 94% on 2 L nasal cannula. General description is an elderly male up in the chair in no distress. Respiratory system: Unlabored breathing, decreased breath sounds at the base. No wheeze. Heart S1, S2. Regular rate and rhythm. Abdomen soft, no tenderness. LABS: Hemoglobin is 6.7, white count 8.7. Blood and fluid cultures are currently pending. Cell count differential was requested; not done. DIAGNOSTIC IMPRESSION AND PLAN: Patient with chronic left-sided pleural effusion in this patient with underlying malignant melanoma with concern for possible pneumonia; not clinically suspected, but patient is covered with Zosyn while waiting for the cultures to finalize, and monitor his clinical course closely. MMODL / IJN: [id number] /
[2021-09-03] MEDS: PIPERACILLIN-TAZOBACTAM 3.375 GM in SODIUM CHLORIDE 0.9% 100 ML IVPB SCH ×2 (00:26→12:01)
[2021-09-03 04:01] LABS: Amorphous Sediment,Urine Few /hpf; Appearance,Urine Cloudy (Clear); Bilirubin,Urine Negative (Negative); Blood,Urine Large (Negative); Color,Urine Yellow; Glucose,Urine (UA) Trace (Negative); Ketones,Urine Negative (Negative); Leukocyte Esterase,Urine Negative (Negative); Mucus,Urine Rare /hpf; Nitrite,Urine Negative (Negative); PH, Urine 5.5 (5.0-8.0); Protein,Urine 2+ (Negative); RBC,Urine 11 /hpf (0-5); Specific Gravity,Urine 1.012 (1.001-1.035); Urobilinogen,Urine <2.0 mg/dL (<2.0); WBC,Urine 4 /hpf (0-5)
[2021-09-03 06:33] LABS: Glucose,Whole Blood 97 mg/dL (75-99)
[2021-09-03] MEDS: carvediloL 12.5 MG TAB PO SCH ×2 (06:42→17:03)
[2021-09-03] MEDS: INSULIN ASPART (NovoLOG) 100 UNIT/ML VIAL SQ SCH ×3 (06:45→16:55)
[2021-09-03] MEDS: APIXABAN 5 MG TAB PO SCH ×2 (07:51→20:49)
[2021-09-03] MEDS: ATORVASTATIN 80 MG TAB PO SCH (07:51)
[2021-09-03] MEDS: hydrALAZINE HCL 25 MG TAB PO SCH (07:51)
[2021-09-03] MEDS: SODIUM BICARBONATE TAB 650 MG TAB PO SCH ×2 (07:51→20:49)
[2021-09-03] MEDS: REPAGLINIDE 1 MG TAB PO SCH ×3 (07:51→17:03)
[2021-09-03] MEDS: ASPIRIN 81 MG PO SCH (07:51)
[2021-09-03] MEDS: ERGOCALCIFEROL 1,250 MCG (50,000 IU) CAPSULE PO SCH (07:52)
[2021-09-03 08:51] LABS: HCT 22.5 % (39.0-53.0); HGB 7.6 gm/dL (13.0-17.5); MCH 28.9 pg (25.0-35.0); MCHC 33.8 g/dL (31.0-37.0); MCV 85.3 fL (80.0-100.0); Mean Platelet Volume 7.9; Platelet Count 210 k/uL (150-450); Poikilocytosis Slight; RBC 2.63 m/uL (4.30-5.90); RDW 15.6 % (11.5-15.5); WBC 9.2 k/uL (3.8-10.6)
[2021-09-03 09:00] LABS: Albumin 2.6 g/dL (3.5-5.0); Calcium 8.5 mg/dL (8.4-10.2); Potassium 4.6 mmol/L (3.5-5.1); Total Bilirubin 0.4 mg/dL (0.2-1.3); Total Protein 5.5 g/dL (6.3-8.2)
[2021-09-03] MEDS ORDERED: FUROSEMIDE 10 MG/ML 4 ML VIAL IV STA (09:49)
[2021-09-03 11:44] LABS: Glucose,Whole Blood 106 mg/dL (75-99)
--- NOTE | 2021-09-03 13:17 | PN ---
PROGRESS NOTE Patient is seen for followup for acute kidney injury on top of chronic kidney disease. He has been fluid overloaded. The patient received IV fluids for a short period of time after diuresis due to increase in creatinine. This was held and he received a dose of Lasix yesterday. Overall, he states he is feeling better. I have also discussed renal replacement therapy with the patient and he is agreeable if needed. So far, his creatinine continues to improve. It is down to 3.7 from 3.8 yesterday and he has had good urine output. EXAMINATION: Today blood pressure 158/67, heart rate 68 per minute. He is afebrile. Examination of the heart S1, S2. Examination of lungs decreased breath sounds at the bases. Abdomen is soft, nontender. Examination of lower extremities edema 2+ bilaterally HAND ETCHER exam grossly intact. LAB: Show sodium 141, potassium 4.6, chloride 114, CO2 is 19, BUN 99, creatinine 3.7, hemoglobin 7.6. ASSESSMENT: 1. Acute kidney injury cardiorenal/ATN currently slightly improved status post IV Lasix yesterday. Will maintain patient on IV Lasix. If renal function worsens, patient is agreeable to starting renal replacement therapy. At this time, he does not need dialysis yet. 2. Chronic kidney disease stage 4. Baseline creatinine around 2.5 mg/dL secondary to diabetic kidney disease. 3. Acute on chronic diastolic congestive heart failure with moderate mitral regurg and pulmonary hypertension. 4. Pneumonia, maintained on antibiotics. 5. CKD mineral bone disorder. 6. Anemia, no active bleeding noted, status post IV iron and maintained on Aranesp. 7. Metabolic acidosis, maintained on sodium bicarb. PLAN: Repeat IV Lasix. Repeat labs in a.m. Continue to monitor for need for renal replacement therapy. MMODL / IJN: [id number] /
--- NOTE | 2021-09-03 13:18 | P.PN ---
Subjective Progress Note Date: 09/03/21 History of present illness This is a 71-year-old gentleman patient of Dr. Wyatt Pereira. He has underlying history of diabetes mellitus type 2, CAD with prior CABG, CK D stage III, hypertension, history of melanoma was in remission until March when patient was noted to have metastatic melanoma with metastases to the lung with enlarged lymph nodes currently on immunotherapy. Patient had recent covid infection in September, with acute kidney injury secondary to covid infection September 2020 and follow Ernie since then. Patient was again admitted in November 09 for 2 days for acute diastolic congestive heart failure secondary to withdrawal off diuretics due to worsening kidney function. He was seen in the ER in March 20 for shortness of breath secondary to metastatic melanoma to his lungs with bilateral pleural effusions. Patient has been getting frequent thoracentesis an d underwent pigtail catheter placement in the left chest in April. He was initially getting fluid removed up to 1 L every day but currently patient is getting fluid removed up to 550 mL once a week, last one 2 days ago. Patient has noticed poor appetite and increased shortness of breath for the past 1 week. He had his Covid booster 6 days ago following which he went to [facility] to have a brain MRI and CT. He received his immunotherapy 3 days ago. He has not recovered since then. His noticed poor appetite increased weakness associated with cough and shortness of breath. Patient was found to have low blood sugar in the low 30s which came back to normal. EKG demonstrated atrial fibrillation In the ER patient is noted to be hypoxic and was placed on 5 L of high flow still saturating at 89%. Otherwise patient is afebrile pulse 66 respiratory rate 18 blood pressure 127/58. He had a leukocytosis of 11, hemoglobin 9.9 platelet 225, BUN 109 creatinine 3.59. Sodium 139 potassium 3.4 chloride 110 [place]icar[place] 18 [place] [id number] Chest x-ray on 08/26 suggests cardiomegaly with small left pleural effusion R [id number] interstitial edema concerning for CHF exacerbation was noted. CT chest was obtained that showed bilateral pleural effusion with basilar pulmonary airspace infiltrates and atelectasis significantly increased compared to old exam with cardiomegaly and mediastinotomy edema but the similar to old exam. 08/28: Patient has been seen and followed by cardiology with recommendations to continue current medications. Echocardiogram has been obtained and report is pending. Patient is also followed by nephrology with recommendations to continue diuretics, discontinue Norvasc. Repeat chest x-ray reveals stable bibasilar right greater than left patchy and interstitial opacities with stable moderate cardiomegaly, trace left pleural effusion may be on the basis of multi focal pneumonia/atelectasis and/or heart failure. No pneumothorax. Patient has been afebrile, heart rate 62, blood pressure 126/66, pulse ox 94% on 6 L nasal cannula. Plan is to wean oxygen down. Repeat blood work reveals sodium 140, potassium 3.7, chloride 110, CO2 19, BUN 107, creatinine 3.86. Blood sugars are running mostly in the 300s this morning 133. Prandin 1 mg with meals added and Levemir increased to home dose of 35 units at bedtime. Patient has Albright catheter in place which we will have removed today and bladder scan postvoid. Home oxygen assessment to be done. 08/29: Patient is seen today on the cardiac stepdown unit. He is followed by nephrology with recommendations to maintain Albright catheter, avoid hypotension, nephro toxic agents and continue IV fluids at 50 ML's per hour. We have discontinued vancomycin. Patient has also been seen by cardiology. Patient is currently on Zosyn. VQ scan ordered to rule out pulmonary embolism due to ongoing hypoxia. Patient is requiring 6 L nasal cannula with pulse ox of 92%. He's been afebrile, heart rate 66, blood pressure 133/68. Repeat blood work reveals sodium 138, potassium 4.2, chloride 109, CO2 19, BUN 103 and creatinine 4.04. Blood sugars are running between 167 and 249.. Ultrasound of the right lower extremity revealed DVT but could not be determined if this was acute and suggest chronic component. Chest x-ray reveals heart failure underlying pneumonia not excluded. 08/30: Patient is currently on IV heparin for pulmonary embolism.patient does have history of lower extremity DVT which he states he completed course of anticoagulation. Discussed case with oncology and we will plan for eliquis, prescription is been sent to his pharmacy. Pneumonia has been ruled out and antibiotics will be discontinued. Patient has Albright catheter in place which will be discontinued today if okay with nephrology and check postvoid residual. The blood work reveals WBC 8.5, hemoglobin 8.0. BUN 107, creatinine 4.2, CO2 19. Patient has been seen by PT and OT with recommendations for home. 08/31: Catheter was discontinued this morning and bladder scan is ordered for 1 PM. Patient has increased breath sounds on left-sided chest x-ray ordered today. Renal function is slightly improved from yesterday with BUN of 99 and creatinine 3.99. Hemoglobin 7.6. TSH is 2.740. Patient will be started on eliquis and heparin discontinued. She has been afebrile, heart rate 70, blood pressure 141/76, pulse ox 92% on 4 L nasal cannula. The patient may require home oxygen therapy and we will assess closer to discharge. Renal ultrasound revealed no hydronephrosis or nephrolithiasis. There is increased echogenicity of the renal cortex which can be sutured with chronic medical renal disease. Chest x-ray reveals correlate for heart failure otherwise diffuse pneumonia. Findings stable. 09/01: Patient has been afebrile, heart rate 69, blood pressure 167/79, pulse ox 91%. He is now on 7 L nasal cannula. Ultrasound of the chest will be done to evaluate pleural effusions. Patient was transitioned from heparin drip to eliquis yesterday and oncology wants him on eliquis for life. Patient continues to have lower extremity edema. Repeat blood work reveals BUN of 101, creatinine 3.88, CO2 of 20. Blood sugars are running between 130 and 182. We will ask for Dr. Suarez to evaluate for pneumonia. And patient started on Zosyn. Patient does have pleural cath in place which nurse tried to drain today but no output. 09/02: Hemoglobin this morning is 6.7 and patient will be transfused 1 unit of packed RBCs. Repeat blood work for tomorrow.Blood glucose ran between 100 and 180. One dose of IV Lasix ordered by nephrology. 09/03: Patient states that he has been sleeping in his chair because it is easier to breathe. He did require nonrebreather for a few hours during the night. We will order 1 dose of IV Lasix today 40 mg. He has been afebrile, heart rate 72, blood pressure 150/75 and pulse ox 93% on 9 L nasal cannula. Blood sugars have been running mostly between 9785 but only 68 this morning. Hemoglobin today is 7.6 after 1 unit of packed RBC dose infused yesterday. BUN 99 and creatinine 3.71. CO2 19. Patient is on sodium bicarb oral. He is followed closely by nephrology. Consult added for pulmonary medicine. Review Of Systems: Constitutional: No fever, no chills, no night sweats. No weight change. Reports weakness,Reports fatigue no lethargy. No daytime sleepiness. EENT: No headache. No blurred vision or double vision, no loss of vision. No loss of Hearing, no ringing in the ears, no dizziness. No nasal drainage or congestion. No epistaxis. No sore throat. Lungs: No shortness of breath, cough, no sputum production. No wheezing. Cardiovascular: No chest pain, no lower extremity edema. No palpitations. No paroxysmal nocturnal dyspnea. Reports orthopnea. No lightheadedness or dizziness. No syncopal episodes. Abdominal: No abdominal pain. No nausea, vomiting. No diarrhea. No constipation. No bloody or tarry stools.. No loss of appetite. Genitourinary: No dysuria, increased frequency, urgency. No urinary retention. Musculoskeletal: No myalgias. Reports muscle weakness, no gait dysfunction, no frequent falls. No back pain. No neck pain. Integumentary: No wounds, no lesions. No rash or pruritus. No unusual bruising. No change in hair or nails. Neurologic: No aphasia. No facial droop. No change in mentation. No head injury. No headache. No paralysis. No paresthesia. Psychiatric: No depression. No anxiety. No mood swings. Endocrine: Noted abnormal blood sugars. No weight change. No excessive sweating or thirst. No cold intolerance. Physical exam Gen: This is a 71-year-old male. He is resting in recliner appears to be fairly comfortable. He is currently on O2 at 9 L. HEENT: Head is atraumatic, normocephalic. Pupils equal, round. Sclerae is anicteric. NECK: Supple. No JVD. No lymphadenopathy. No thyromegaly. LUNGS: Decreased breath sounds bilaterally with bilateral crackles in the bases. Pleural catheter in the left side. No drainage. No intercostal retractions. HEART: Irregularly irregular rate and rhythm. No murmur. ABDOMEN: Soft. Bowel sounds are present. No masses. No tenderness. EXTREMITIES: Bilateral pedal edema. No calf tenderness. NEUROLOGICAL: Patient is awake, alert and oriented x3. Cranial nerves 2 through 12 are grossly intact. - Constitutional Assessment and plan Acute diastolic heart failure, ejection fraction 55-60% with severe concentric left ventricle hypertrophy and moderate to severe pulmonary hypertension moderate tricuspid regurgitation on October 2020. One dose of IV Lasix 40 mg ordered for today and nephrology as ordered 40 daily starting tomorrow. Monitor I&O and daily weights, also followed by cardiology. Acute hypoxic respiratory failure secondary to CHF exacerbation and bilateral pleural effusions, pulmonary embolism, pneumonia possible. Continue eliquis 10 mg twice daily for 10 days. Continue Zosyn, consult with infectious disease appreciated. Consult added for pulmonary medicine. Acute kidney injury secondary to ATN with cardiorenal syndrome on chronic kidney disease stage IV secondary to diabetic kidney disease with baseline creatinine 2.5. Nephrology consult appreciated, Lasix 40 mg IV daily, avoid nephrotoxic agents, monitor renal function. New onset paroxysmal atrial fibrillation. Continue Coreg 12.5 twice a day and patient now started on eliquis due to PE. Metastatic melanoma with metastasis to the lung and lymph nodes enlargement. On immunotherapy, follows Dr. Umaña. Consult with oncology appreciated. Recurrent pleural effusion With pleural cath involving the left pleural cavity. Follows cardiothoracic surgeon at the [facility]. Hypoglycemia with history Diabetes mellitus type 2, hypoglycemia resolved. A1c 8.8. Levemir resumed at 22 units at bedtime, Prandin 1 mg with meals, Insulin sliding scale. A1c 8.8 Anemia of kidney disease. Patient is status post iron infusion, 1 unit of packed RBCs. Continue Aranesp. CAD with prior CABG in the past, status post occlusive disease in the LAD, and diagonal branch. Continue aspirin, Coreg, Lipitor 80 mg daily Covid infection 19 on 10/18, Received Covid booster 1 week Uncontrolled hypertension. Coreg 12.5 mg twice daily, hydralazine 25 mg twice daily, Hyperlipidemia. Continue atorvastatin 80 mg daily History of GI bleed, none currently, was previously on Eliquis. Patient on a spirin only DVT prophylaxis. Eliquis CODE STATUS full code DISCHARGE PLAN Home. Impression and plan of care have been directed as dictated by the signing physician. Marry Andre nurse practitioner acting as scribe for signing physician. Objective - Vital Signs Vital signs: Vital Signs Temp 97.6 F 09/03/21 07:53 Pulse 72 09/03/21 07:55 Resp 20 09/03/21 07:55 BP 150/75 09/03/21 07:53 Pulse Ox 93 L 09/03/21 07:53 Intake & Output 09/02/21 09/03/21 09/03/21 18:59 06:59 18:59 Intake Total 670 Output Total 325 1075 Balance 345 -1075 Weight 88.5 kg Intake: Oral 360 Blood Product 310 Rc As-1 Unit 310 [id number] Output: Urine 325 1075 Other: Voiding Method Toilet Toilet Toilet Urinal Urinal Urinal # Voids 1 - Labs CBC & Chem 7: 09/03/21 07:30 09/03/21 07:30 Labs: Abnormal Lab Results - Last 24 Hours (Table) 09/02/21 09/02/21 09/02/21 Range/Units 10:04 11:44 11:45 RBC 2.39 L (4.30-5.90) m/uL Hgb 6.7 L* (13.0-17.5) gm/dL Hct 20.2 L (39.0-53.0) % RDW 15.7 H (11.5-15.5) % Lymphocytes # 0.3 L (1.0-4.8) k/uL Chloride (98-107) mmol/L Carbon Dioxide (22-30) mmol/L BUN (9-20) mg/dL Creatinine (0.66-1.25) mg/dL Glucose (74-99) mg/dL POC Glucose (mg/dL) 179 H (75-99) mg/dL Total Protein (6.3-8.2) g/dL Albumin (3.5-5.0) g/dL Urine Protein (Negative) Urine Glucose (UA) (Negative) Urine Blood (Negative) Urine RBC (0-5) /hpf Amorphous Sediment (None) /hpf Urine Mucus (None) /hpf Crossmatch See Detail 09/02/21 09/02/21 09/03/21 Range/Units 16:36 20:23 03:21 RBC (4.30-5.90) m/uL Hgb (13.0-17.5) gm/dL Hct (39.0-53.0) % RDW (11.5-15.5) % Lymphocytes # (1.0-4.8) k/uL Chloride (98-107) mmol/L Carbon Dioxide (22-30) mmol/L BUN (9-20) mg/dL Creatinine (0.66-1.25) mg/dL Glucose (74-99) mg/dL POC Glucose (mg/dL) 185 H 175 H (75-99) mg/dL Total Protein (6.3-8.2) g/dL Albumin (3.5-5.0) g/dL Urine Protein 2+ H (Negative) Urine Glucose (UA) Trace H (Negative) Urine Blood Large H (Negative) Urine RBC 11 H (0-5) /hpf Amorphous Sediment Few H (None) /hpf Urine Mucus Rare H (None) /hpf Crossmatch 09/03/21 09/03/21 Range/Units 07:30 07:30 RBC 2.63 L (4.30-5.90) m/uL Hgb 7.6 L (13.0-17.5) gm/dL Hct 22.5 L (39.0-53.0) % RDW 15.6 H (11.5-15.5) % Lymphocytes # (1.0-4.8) k/uL Chloride 114 H (98-107) mmol/L Carbon Dioxide 19 L (22-30) mmol/L BUN 99 H (9-20) mg/dL Creatinine 3.71 H (0.66-1.25) mg/dL Glucose 68 L (74-99) mg/dL POC Glucose (mg/dL) (75-99) mg/dL Total Protein 5.5 L (6.3-8.2) g/dL Albumin 2.6 L (3.5-5.0) g/dL Urine Protein (Negative) Urine Glucose (UA) (Negative) Urine Blood (Negative) Urine RBC (0-5) /hpf Amorphous Sediment (None) /hpf Urine Mucus (None) /hpf Crossmatch Microbiology - Last 24 Hours (Table) 09/01/21 12:00 Body Fluid Culture - Preliminary Pleural Fluid
--- NOTE | 2021-09-03 14:04 | CT ---
EXAMINATION TYPE: CT chest wo con DATE OF EXAM: 09/03/2021 COMPARISON: 08/26/2021 HISTORY: Bilateral effusions CT DLP: 555.[address] of the chest was performed with lung and mediastinal window settings submitted. The la ck of contrast limits evaluation of the vascular, mediastinal and parenchymal structures including th e upper abdomen. LUNGS: Enlarging bilateral pleural effusions right greater than left. Right-sided pleural effusion AP dimension is 6.6 cm and on the left 3.9 cm. Compressive basilar atelectasis noted. Additional scatte red infiltrates compatible with pneumonia bilaterally. In addition there is a nodular density left lo wer lobe however this is felt to reflect trapped fluid within the fissure. MEDIASTINUM/ARON: Thoracic aorta is of normal caliber with limited evaluation given lack of contrast . The heart is enlarged. No evidence for mediastinal mass. Multiple subcentimeter lymph nodes with in the mediastinum. UPPER ABDOMEN: No significant abnormality is seen. OTHER: No significant other abnormality. IMPRESSION: 1. Enlarging pleural effusions. 2. Scattered infiltrates compatible with pneumonia.
--- NOTE | 2021-09-03 14:56 | P.CNPUL ---
History of Present Illness Consult date: 09/03/21 Reason for consult: dyspnea History of present illness: This is a 70-year-old gentleman patient of Dr. Wyatt Pereira. He has underlying history of diabetes mellitus type 2, CAD with prior CABG, CK D stage III, hypertension, history of melanoma was in remission until March when patient was noted to have met metastatic melanoma with metastases to the lung with enlarged lymph nodes currently on immunotherapy. Patient had recent covid infection in September, with acute kidney injury secondary to covid infection September 2020 and follow Ernie since then. Patient was again admitted in November 09 for 2 days for acute diastolic congestive heart failure secondary to withdrawal off diuretics due to worsening kidney function. He was seen in the ER in March 20 for shortness of breath secondary to metastatic melanoma to his lungs with bilateral pleural effusions. Patient has been getting frequent thoracentesis and underwent pigtail catheter placement in the left chest in April. He was initially getting fluid removed up to 1 L every day but currently patient is getting fluid removed up to 550 mL once a week, last one 2 days ago. Note that the patient's progress catheter was inserted at [facility]. His original thoracentesis was also done at [facility]. As mentioned, there has been significant drop in the output from the Pleurx catheter. He is current hospitalization, another drainage was attempted and there was no output. Meanwhile, the patient's oxidation progressively been getting worse and the patient is currently at that is about 2 by nasal cannula. No fever. No chills. No hemoptysis to no pleurisy. No swelling lower extremities. A CAT scan of the chest was done at time of admission and the patient was found to have bilateral pleural effusion with basilar pulmonary infiltrates/atelectasis that increased compared to the old examination. There was also mediastinal lymphadenopathy. The Pleurx catheter was in the left chest. Left-sided pleural effusion itself seemed to be somewhat loculated. On today's evaluation, the patient has a white cell count 9.2 with a hemoglobin of 7.6. Has chronic kidney disease, stage IV with a creatinine of 3.7 and the BUN of 99. He has an anion gap metabolic acidosis with a bicarb level of 19. Currently, he is on IV Zosyn as an empiric antibiotic coverage. Review of Systems Constitutional: Endorses chills, Denies fever, endorses lethargy, endorses malaise, Denies poor appetite, endorses weakness, Denies weight loss Eyes: denies decreased vision, denies diplopia, denies discharge, denies pain Ears: deny: decreased hearing Ears, nose, mouth and throat: Denies dental pain, Denies headache, Denies nasal discharge, Denies nose pain Cardiovascular: Denies chest pain, endorses decreased exercise tolerance, endorses bilateral lower extremity edema, Denies high blood pressure, Denies irregular heart beat, Denies palpitations, Denies paroxysmal nocturnal dyspnea, Denies rapid heart beat, endorses shortness of breath Respiratory: Worsening shortness of breath. Noted the patient was on no oxygen on outpatient basis and currently is on 10 is about 2 by nasal cannula. No pleurisy. No hemoptysis. No chest pain. No swelling lower extremities. Gastrointestinal: Denies abdominal pain, Denies change in bowel habits, Denies coffee ground emesis, Denies early satiety, Denies excessive gas, Denies heartburn, Denies hematemesis, Denies hematochezia, Denies loss of appetite, Denies nausea, Denies vomiting Genitourinary: Denies dysuria, Denies flank pain, Denies kidney stones, Denies menorrhagia, Denies urgency, Denies urinary frequency Musculoskeletal: Endorses gait dysfunction, Denies limitation of motion, Denies morning stiffness, Denies muscle cramps Integumentary: Denies rash, Denies wounds, Denies brittle nails, Denies change in hair/nails, Denies darkening of skin Neurological: Denies balance difficulties, Denies change in speech, Denies double vision, Denies gait dysfunction, Denies loss of vision, Denies motor disturbance, Denies numbness, Denies paralysis, Denies paresthesias, Denies seizures Psychiatric: Denies anxiety, Denies depression Endocrine: Denies excessive sweating, Denies excessive thirst, Denies high blood sugars, Denies palpitations Hematologic/Lymphatic: Denies easy bruising, Denies lymphadenopathy Past Medical History Past Medical History: Coronary Artery Disease (CAD), Cancer (Metastatic malignant melanoma of the back post resection, post lymph node dissection, left- sided pleural effusion, chronic, only metastases from malignant melanoma), Diabetes Mellitus, Eye Disorder, GERD/Reflux, GI Bleed, Hyperlipidemia, Hypertension, Myocardial Infarction (CT), Osteoarthritis (OA), Renal Disease Additional Past Medical History / Comment(s): glaucoma in the left eye, stage III chronic kidney disease, Melanoma on back R ear and abd removed, covid Last Myocardial Infarction Date:: 2015 History of Any Multi-Drug Resistant Organisms: None Reported Past Surgical History: Adenoidectomy, Appendectomy, Heart Catheterization, Heart Catheterization With Stent, Orthopedic Surgery, Tonsillectomy Additional Past Surgical History / Comment(s): tumor from L shoulder, bilateral carpel tunnel, colonoscopy, R knee arthroscopy;CA removed from R ear back & abdomen; cataract L eye, liver biopsy on 08/14/18 Past Anesthesia/Blood Transfusion Reactions: No Reported Reaction Date of Last Stent Placement:: 12/07/15 Past Psychological History: No Psychological Hx Reported Additional Psychological History / Comment(s): Pt resides with his spouse. He works at [employer]. He is independent. Smoking Status: Never smoker Past Alcohol Use History: Occasional Past Drug Use History: None Reported - Past Family History Father Family Medical History: No Reported History Additional Family Medical History / Comment(s): Father was a heavy smoker. He was at age 70. Mother Family Medical History: No Reported History Additional Family Medical History / Comment(s): Mother is alive and is 92 yrs old. Medications and Allergies Home Medications Medication Instructions Recorded Confirmed Type Atorvastatin [Lipitor] 80 mg PO DAILY 04/30/17 08/26/21 History Aspirin EC [Ecotrin Low Dose] 81 mg PO DAILY 10/18/20 08/26/21 History Ergocalciferol [Vitamin D2 (1250 1,250 mcg PO HERBERT 03/16/21 08/26/21 History Mcg = [id number] Iu)] Furosemide [Lasix] 40 mg PO Q48H 08/26/21 08/26/21 History Insulin Detemir [Levemir Flextouch 35 units SQ HS 08/26/21 08/26/21 History Pen] amLODIPine [Norvasc] 10 mg PO DAILY 08/26/21 08/26/21 History calcitrioL [Calcitriol] 0.25 mcg PO HERBERT 08/26/21 08/26/21 History carvediloL [Coreg*] 12.5 mg PO BID 08/26/21 08/26/21 History hydrALAZINE HCL [Apresoline] 25 mg PO BID 08/26/21 08/26/21 History Apixaban [Eliquis Starter Pack 5 - 10 mg PO DIRECTED 30 Days 08/30/21 Rx (for VTE)] #1 each Allergies Allergy/AdvReac Type Severity Reaction Status Date / Time No Known Allergies Allergy Verified 08/26/21 14:19 Physical Exam Vitals: Vital Signs Temp Pulse Pulse Resp BP BP BP 09/03/21 13:36 68 19 09/03/21 12:00 68 19 158/67 09/03/21 07:55 72 20 09/03/21 07:53 97.6 F 72 20 150/75 09/03/21 04:00 98.2 F 72 18 160/72 09/03/21 02:00 71 18 09/02/21 23:47 71 18 160/72 09/02/21 23:06 18 09/02/21 21:03 09/02/21 20:00 76 20 09/02/21 19:40 97.8 F 76 20 174/75 09/02/21 19:11 20 09/02/21 19:01 21 09/02/21 18:59 20 09/02/21 18:58 20 09/02/21 18:57 97.6 F 75 19 178/77 09/02/21 16:48 97.6 F 73 18 171/72 09/02/21 16:18 97.5 F L 69 18 168/71 09/02/21 16:08 97.4 F L 71 18 168/75 09/02/21 16:00 97.4 F L 91 18 168/75 Pulse Ox 09/03/21 13:36 09/03/21 12:00 93 L 09/03/21 07:55 09/03/21 07:53 93 L 09/03/21 04:00 93 L 09/03/21 02:00 09/02/21 23:47 93 L 09/02/21 23:06 93 L 09/02/21 21:03 97 09/02/21 20:00 09/02/21 19:40 94 L 09/02/21 19:11 97 09/02/21 19:01 90 L 09/02/21 18:59 83 L 09/02/21 18:58 84 L 09/02/21 18:57 86 L 09/02/21 16:48 91 L 09/02/21 16:18 92 L 09/02/21 16:08 91 L 09/02/21 16:00 91 L Intake and Output 09/02/21 09/03/21 09/03/21 22:59 06:59 14:59 Intake Total 490 180 Output Total 475 600 Balance 15 -600 180 Intake: Oral 180 180 Blood Product 310 Rc As-1 Unit 310 [id number] Output: Urine 475 600 Other: Voiding Method Toilet Toilet Toilet Urinal Urinal Urinal # Voids 3 Weight 88.5 kg - Constitutional General appearance: cooperative, no acute distress, appears frail, lack of muscle tone wearing 10 L high flow cannula - EENT Eyes: anicteric sclerae, PERRLA, normal appearance ENT: hearing grossly normal - Neck Neck: no lymphadenopathy, normal ROM, no other, no rigidity, no stridor, no thyromegaly - Respiratory Respiratory: bilateral: Decreased air entry with the back crackles involving the left upper and mid lobe with decreased air entry involving the right lung. Dull to percussion. No use of sensory muscles, catheter in the left pleural cavity, no drainage noted, and the patient diminished breath on the lung bases bilaterally. There is also thoracotomy scar over the anterior chest area which is dry clean and intact. - Cardiovascular Rhythm: Irregularly irregular Heart sounds: normal: S1, S2 Abnormal Heart Sounds: no systolic murmur, no diastolic murmur, no rub, no S3 Gallop, no S4 Gallop, no click, no other - Gastrointestinal General gastrointestinal: normal bowel sounds, soft nontender - Integumentary Integumentary: Bilateral lower extremity edema left worse than the right - Neurologic Neurologic: No sensory or motor deficit - Musculoskeletal Musculoskeletal: gait not assessed, strength equal bilaterally - Psychiatric Psychiatric: A&O x's 3, appropriate affect Results - Laboratory Findings CBC and BMP: 09/03/21 07:30 09/03/21 07:30 PT/INR, D-dimer PT 11.1 sec (9.0-12.0) 08/26/21 11:46 INR 1.0 (<1.2) 08/26/21 11:46 Abnormal lab findings: Abnormal Labs 08/26/21 08/26/21 08/26/21 11:00 11:16 11:45 WBC RBC Hgb Hct RDW Neutrophils # Lymphocytes # APTT Potassium Chloride Carbon Dioxide BUN Creatinine Glucose POC Glucose (mg/dL) 59 L 169 H 106 H Hemoglobin A1c Calcium Iron TIBC Transferrin Ferritin Total Protein Albumin Procalcitonin Urine Protein Urine Glucose (UA) Urine Blood Urine RBC Amorphous Sediment Urine Bacteria Urine Mucus Crossmatch 08/26/21 08/26/21 08/26/21 11:46 11:46 12:25 WBC 11.0 H RBC 3.44 L Hgb 9.9 L Hct 27.5 L RDW Neutrophils # 10.0 H Lymphocytes # 0.4 L APTT Potassium 3.4 L Chloride 110 H Carbon Dioxide 18 L BUN 109 H* Creatinine 3.59 H Glucose 117 H POC Glucose (mg/dL) Hemoglobin A1c Calcium 8.1 L Iron TIBC Transferrin Ferritin Total Protein 5.9 L Albumin 2.9 L Procalcitonin Urine Protein 2+ H Urine Glucose (UA) Urine Blood Small H Urine RBC Amorphous Sediment Few H Urine Bacteria Rare H Urine Mucus Rare H Crossmatch 08/26/21 08/26/21 08/26/21 15:54 18:33 20:00 WBC RBC Hgb Hct RDW Neutrophils # Lymphocytes # APTT Potassium Chloride Carbon Dioxide BUN Creatinine Glucose POC Glucose (mg/dL) 68 L 126 H 132 H Hemoglobin A1c Calcium Iron TIBC Transferrin Ferritin Total Protein Albumin Procalcitonin Urine Protein Urine Glucose (UA) Urine Blood Urine RBC Amorphous Sediment Urine Bacteria Urine Mucus Crossmatch 08/27/21 08/27/21 08/27/21 05:59 09:58 09:58 WBC RBC 2.82 L Hgb 8.1 L D Hct 23.0 L RDW Neutrophils # Lymphocytes # 0.3 L APTT Potassium Chloride 108 H Carbon Dioxide 18 L BUN 108 H* Creatinine 3.60 H Glucose 227 H POC Glucose (mg/dL) 138 H Hemoglobin A1c Calcium 7.7 L Iron TIBC Transferrin Ferritin Total Protein 5.1 L Albumin 2.4 L Procalcitonin Urine Protein Urine Glucose (UA) Urine Blood Urine RBC Amorphous Sediment Urine Bacteria Urine Mucus Crossmatch 08/27/21 08/27/21 08/27/21 09:58 11:39 17:12 WBC RBC Hgb Hct RDW Neutrophils # Lymphocytes # APTT Potassium Chloride Carbon Dioxide BUN Creatinine Glucose POC Glucose (mg/dL) 262 H 315 H Hemoglobin A1c 8.8 H Calcium Iron TIBC Transferrin Ferritin Total Protein Albumin Procalcitonin Urine Protein Urine Glucose (UA) Urine Blood Urine RBC Amorphous Sediment Urine Bacteria Urine Mucus Crossmatch 08/27/21 08/28/21 08/28/21 20:16 05:48 05:51 WBC RBC Hgb Hct RDW Neutrophils # Lymphocytes # APTT Potassium Chloride 110 H Carbon Dioxide 19 L BUN 107 H* Creatinine 3.86 H Glucose 118 H POC Glucose (mg/dL) 302 H 133 H Hemoglobin A1c Calcium 7.9 L Iron TIBC Transferrin Ferritin Total Protein Albumin Procalcitonin Urine Protein Urine Glucose (UA) Urine Blood Urine RBC Amorphous Sediment Urine Bacteria Urine Mucus Crossmatch 08/28/21 08/28/21 08/28/21 11:50 16:43 21:00 WBC RBC Hgb Hct RDW Neutrophils # Lymphocytes # APTT Potassium Chloride Carbon Dioxide BUN Creatinine Glucose POC Glucose (mg/dL) 324 H 207 H 167 H Hemoglobin A1c Calcium Iron TIBC Transferrin Ferritin Total Protein Albumin Procalcitonin Urine Protein Urine Glucose (UA) Urine Blood Urine RBC Amorphous Sediment Urine Bacteria Urine Mucus Crossmatch 08/29/21 08/29/21 08/29/21 06:06 06:52 12:03 WBC RBC Hgb Hct RDW Neutrophils # Lymphocytes # APTT Potassium Chloride 109 H Carbon Dioxide 19 L BUN 103 H* Creatinine 4.04 H Glucose 172 H POC Glucose (mg/dL) 188 H 249 H Hemoglobin A1c Calcium 8.1 L Iron TIBC Transferrin Ferritin Total Protein Albumin Procalcitonin Urine Protein Urine Glucose (UA) Urine Blood Urine RBC Amorphous Sediment Urine Bacteria Urine Mucus Crossmatch 08/29/21 08/29/21 08/30/21 16:55 19:49 00:48 WBC RBC Hgb Hct RDW Neutrophils # Lymphocytes # APTT 82.4 H Potassium Chloride Carbon Dioxide BUN Creatinine Glucose POC Glucose (mg/dL) 227 H 213 H Hemoglobin A1c Calcium Iron TIBC Transferrin Ferritin Total Protein Albumin Procalcitonin Urine Protein Urine Glucose (UA) Urine Blood Urine RBC Amorphous Sediment Urine Bacteria Urine Mucus Crossmatch 08/30/21 08/30/21 08/30/21 05:01 05:17 05:31 WBC RBC Hgb Hct RDW Neutrophils # Lymphocytes # APTT Potassium Chloride Carbon Dioxide BUN Creatinine Glucose POC Glucose (mg/dL) 39 L 41 L 49 L Hemoglobin A1c Calcium Iron TIBC Transferrin Ferritin Total Protein Albumin Procalcitonin Urine Protein Urine Glucose (UA) Urine Blood Urine RBC Amorphous Sediment Urine Bacteria Urine Mucus Crossmatch 08/30/21 08/30/21 08/30/21 05:46 10:39 10:39 WBC RBC Hgb Hct RDW Neutrophils # Lymphocytes # APTT 58.3 H Potassium Chloride 111 H Carbon Dioxide 19 L BUN 107 H* Creatinine 4.24 H Glucose 155 H POC Glucose (mg/dL) 139 H Hemoglobin A1c Calcium Iron TIBC Transferrin Ferritin Total Protein 5.6 L Albumin 2.7 L Procalcitonin Urine Protein Urine Glucose (UA) Urine Blood Urine RBC Amorphous Sediment Urine Bacteria Urine Mucus Crossmatch 08/30/21 08/30/21 08/30/21 10:44 11:52 16:38 WBC RBC 2.80 L Hgb 8.0 L Hct 23.3 L RDW Neutrophils # Lymphocytes # 0.3 L APTT Potassium Chloride Carbon Dioxide BUN Creatinine Glucose POC Glucose (mg/dL) 191 H 215 H Hemoglobin A1c Calcium Iron TIBC Transferrin Ferritin Total Protein Albumin Procalcitonin Urine Protein Urine Glucose (UA) Urine Blood Urine RBC Amorphous Sediment Urine Bacteria Urine Mucus Crossmatch 08/30/21 08/31/21 08/31/21 20:40 06:17 06:53 WBC RBC 2.67 L Hgb 7.6 L Hct 22.1 L RDW Neutrophils # Lymphocytes # 0.4 L APTT Potassium Chloride Carbon Dioxide BUN Creatinine Glucose POC Glucose (mg/dL) 161 H 113 H Hemoglobin A1c Calcium Iron TIBC Transferrin Ferritin Total Protein Albumin Procalcitonin Urine Protein Urine Glucose (UA) Urine Blood Urine RBC Amorphous Sediment Urine Bacteria Urine Mucus Crossmatch 08/31/21 08/31/21 08/31/21 06:53 06:53 11:53 WBC RBC Hgb Hct RDW Neutrophils # Lymphocytes # APTT 48.1 H Potassium Chloride 113 H Carbon Dioxide 18 L BUN 99 H Creatinine 3.99 H Glucose POC Glucose (mg/dL) 143 H Hemoglobin A1c Calcium 8.3 L Iron 26 L TIBC 157 L Transferrin 112.0 L Ferritin 699.0 H Total Protein Albumin Procalcitonin Urine Protein Urine Glucose (UA) Urine Blood Urine RBC Amorphous Sediment Urine Bacteria Urine Mucus Crossmatch 08/31/21 08/31/21 09/01/21 16:29 20:03 06:04 WBC RBC Hgb Hct RDW Neutrophils # Lymphocytes # APTT Potassium Chloride Carbon Dioxide BUN Creatinine Glucose POC Glucose (mg/dL) 180 H 182 H 139 H Hemoglobin A1c Calcium Iron TIBC Transferrin Ferritin Total Protein Albumin Procalcitonin Urine Protein Urine Glucose (UA) Urine Blood Urine RBC Amorphous Sediment Urine Bacteria Urine Mucus Crossmatch 09/01/21 09/01/21 09/01/21 09:05 09:05 11:38 WBC RBC Hgb Hct RDW Neutrophils # Lymphocytes # APTT Potassium Chloride 113 H Carbon Dioxide 20 L BUN 101 H* Creatinine 3.88 H Glucose 130 H POC Glucose (mg/dL) 144 H Hemoglobin A1c Calcium Iron TIBC Transferrin Ferritin Total Protein Albumin Procalcitonin 0.25 H Urine Protein Urine Glucose (UA) Urine Blood Urine RBC Amorphous Sediment Urine Bacteria Urine Mucus Crossmatch 09/01/21 09/01/21 09/01/21 14:26 16:42 19:50 WBC RBC 2.46 L Hgb 7.1 L Hct 20.6 L RDW 15.6 H Neutrophils # Lymphocytes # 0.3 L APTT Potassium Chloride Carbon Dioxide BUN Creatinine Glucose POC Glucose (mg/dL) 158 H 180 H Hemoglobin A1c Calcium Iron TIBC Transferrin Ferritin Total Protein Albumin Procalcitonin Urine Protein Urine Glucose (UA) Urine Blood Urine RBC Amorphous Sediment Urine Bacteria Urine Mucus Crossmatch 09/02/21 09/02/21 09/02/21 06:33 10:04 11:44 WBC RBC 2.39 L Hgb 6.7 L* Hct 20.2 L RDW 15.7 H Neutrophils # Lymphocytes # 0.3 L APTT Potassium Chloride Carbon Dioxide BUN Creatinine Glucose POC Glucose (mg/dL) 100 H 179 H Hemoglobin A1c Calcium Iron TIBC Transferrin Ferritin Total Protein Albumin Procalcitonin Urine Protein Urine Glucose (UA) Urine Blood Urine RBC Amorphous Sediment Urine Bacteria Urine Mucus Crossmatch 09/02/21 09/02/21 09/02/21 11:45 16:36 20:23 WBC RBC Hgb Hct RDW Neutrophils # Lymphocytes # APTT Potassium Chloride Carbon Dioxide BUN Creatinine Glucose POC Glucose (mg/dL) 185 H 175 H Hemoglobin A1c Calcium Iron TIBC Transferrin Ferritin Total Protein Albumin Procalcitonin Urine Protein Urine Glucose (UA) Urine Blood Urine RBC Amorphous Sediment Urine Bacteria Urine Mucus Crossmatch See Detail 09/03/21 09/03/21 09/03/21 03:21 07:30 07:30 WBC RBC 2.63 L Hgb 7.6 L Hct 22.5 L RDW 15.6 H Neutrophils # Lymphocytes # APTT Potassium Chloride 114 H Carbon Dioxide 19 L BUN 99 H Creatinine 3.71 H Glucose 68 L POC Glucose (mg/dL) Hemoglobin A1c Calcium Iron TIBC Transferrin Ferritin Total Protein 5.5 L Albumin 2.6 L Procalcitonin Urine Protein 2+ H Urine Glucose (UA) Trace H Urine Blood Large H Urine RBC 11 H Amorphous Sediment Few H Urine Bacteria Urine Mucus Rare H Crossmatch 09/03/21 11:42 WBC RBC Hgb Hct RDW Neutrophils # Lymphocytes # APTT Potassium Chloride Carbon Dioxide BUN Creatinine Glucose POC Glucose (mg/dL) 106 H Hemoglobin A1c Calcium Iron TIBC Transferrin Ferritin Total Protein Albumin Procalcitonin Urine Protein Urine Glucose (UA) Urine Blood Urine RBC Amorphous Sediment Urine Bacteria Urine Mucus Crossmatch - Diagnostic Findings Chest x-ray: image reviewed CT scan - chest: image reviewed Assessment and Plan Plan: 1 acute hypoxic history failure and the patient is currently on oxygen at 10 L per minute nasal cannula. The patient has been in the hospital for the past 8 days. Several diagnoses are considered including pneumonias and pulmonary embolism and the patient is currently on IV Zosyn. Nevertheless, I think he is hypoxic respiratory failure is related to progression of the bilateral pleural effusion more so on the left. Noted the patient's last catheter has not been dr ornelas. In fact output from the left lung has dropped considerably and the patient has had no output over the past 1 week at least. Attempted drainage has failed and the hospital. I reviewed the CAT scan of the chest. There is bilateral pleural effusion and a left-sided pleural effusion seems to be getting more loculated. This possible also that the tube or the Pleurx catheter itself has been clogged and as such this progressive worsening and left-sided pleural effusion with hypoxia respiratory failure. For that reason, repeat CAT scan will be indicated. Doubt pulmonary embolism. Doubt pneumonia. 2 metastatic melanoma with pulmonary metastasis and mediastinal lymphadenopathy. The patient has been receiving immunotherapy with Keytruda. 3 history of large and recurrent left-sided pleural effusion post Pleurx catheter insertion and this was done [facility] 4 chronic kidney disease, stage IV 5 coronary artery disease with previous bypass surgery 6 history of COVID 19 infection back in general 2019 7 hypertension 8 hyperlipidemia Plan Repeat a CAT scan of the chest. This will be a noncontrast CAT scan of the chest. It is possible that the Pleurx catheter is clogged or the left-sided pleural effusion has been more loculated. Assess the drainage of the fluid has not been as successful and the patient has developed worsening in left-sided pleural effusion with secondary hypoxic respiratory failure. For that reason, CAT scan of the chest will be indicated along with a CT surgery evaluation regarding the possibility of either replacing or declogging the Pleurx catheter and even possibility of administrating ostiomeatal break some of the loculation within the left-sided pleural fluids. Continue empiric antibiotic coverage with IV Zosyn Keep the patient accidentally debilitated cannula Low suspicion for pulmonary embolism We'll continue to follow.
--- NOTE | 2021-09-03 15:38 | P.PN ---
Subjective Progress Note Date: 09/03/21 Patient examined today sitting in the chair resting comfortably. Patient he stated last night was put on a nonrebreather for a short period time, he is now on 9 L nasal cannula and 93%. Patient has bilateral lower extremity edema, is getting a one-time dose of IV Lasix. Patient remains sinus rhythm with a controlled ventricular rate. He denies any acute complaints of chest pain, palpitations, dizziness, or dizziness. Since blood pressure remains elevated. Patient's blood pressure 150/75, heart rate 72, 93% on high flow nasal cannula 90 L, respirations 20 unlabored. Hemoglobin 7.6, potassium 4.6, BUN 99, creatinine 3.71, nonaf GFR 16, AST 22, ALT 22 Objective - Vital Signs Vital signs: Vital Signs Temp 97.6 F 09/03/21 07:53 Pulse 68 09/03/21 12:00 Resp 19 09/03/21 12:00 BP 158/67 09/03/21 12:00 Pulse Ox 93 L 09/03/21 12:00 Intake & Output 09/02/21 09/03/21 09/03/21 18:59 06:59 18:59 Intake Total 670 180 Output Total 325 1075 Balance 345 -1075 180 Weight 88.5 kg Intake: Oral 360 180 Blood Product 310 Rc As-1 Unit 310 [id number] Output: Urine 325 1075 Other: Voiding Method Toilet Toilet Toilet Urinal Urinal Urinal # Voids 1 3 - Exam PHYSICAL EXAM: VITAL SIGNS: Reviewed. GENERAL: Well-developed in no acute distress. NECK: Supple. No JVD or thyromegaly LUNGS: Respirations even and unlabored. Lungs diminished to auscultation bilaterally. HEART: Regular rate and rhythm. S1 and S2 heard. EXTREMITIES: Normal range of motion. No clubbing or cyanosis. Peripheral pulses intact. Mild pitting lower extremity edema - Labs CBC & Chem 7: 09/03/21 07:30 09/03/21 07:30 Labs: Abnormal Lab Results - Last 24 Hours (Table) 09/02/21 09/02/21 09/02/21 Range/Units 11:45 16:36 20:23 RBC (4.30-5.90) m/uL Hgb (13.0-17.5) gm/dL Hct (39.0-53.0) % RDW (11.5-15.5) % Chloride (98-107) mmol/L Carbon Dioxide (22-30) mmol/L BUN (9-20) mg/dL Creatinine (0.66-1.25) mg/dL Glucose (74-99) mg/dL POC Glucose (mg/dL) 185 H 175 H (75-99) mg/dL Total Protein (6.3-8.2) g/dL Albumin (3.5-5.0) g/dL Urine Protein (Negative) Urine Glucose (UA) (Negative) Urine Blood (Negative) Urine RBC (0-5) /hpf Amorphous Sediment (None) /hpf Urine Mucus (None) /hpf Crossmatch See Detail 09/03/21 09/03/21 09/03/21 Range/Units 03:21 07:30 07:30 RBC 2.63 L (4.30-5.90) m/uL Hgb 7.6 L (13.0-17.5) gm/dL Hct 22.5 L (39.0-53.0) % RDW 15.6 H (11.5-15.5) % Chloride 114 H (98-107) mmol/L Carbon Dioxide 19 L (22-30) mmol/L BUN 99 H (9-20) mg/dL Creatinine 3.71 H (0.66-1.25) mg/dL Glucose 68 L (74-99) mg/dL POC Glucose (mg/dL) (75-99) mg/dL Total Protein 5.5 L (6.3-8.2) g/dL Albumin 2.6 L (3.5-5.0) g/dL Urine Protein 2+ H (Negative) Urine Glucose (UA) Trace H (Negative) Urine Blood Large H (Negative) Urine RBC 11 H (0-5) /hpf Amorphous Sediment Few H (None) /hpf Urine Mucus Rare H (None) /hpf Crossmatch 09/03/21 Range/Units 11:42 RBC (4.30-5.90) m/uL Hgb (13.0-17.5) gm/dL Hct (39.0-53.0) % RDW (11.5-15.5) % Chloride (98-107) mmol/L Carbon Dioxide (22-30) mmol/L BUN (9-20) mg/dL Creatinine (0.66-1.25) mg/dL Glucose (74-99) mg/dL POC Glucose (mg/dL) 106 H (75-99) mg/dL Total Protein (6.3-8.2) g/dL Albumin (3.5-5.0) g/dL Urine Protein (Negative) Urine Glucose (UA) (Negative) Urine Blood (Negative) Urine RBC (0-5) /hpf Amorphous Sediment (None) /hpf Urine Mucus (None) /hpf Crossmatch Microbiology - Last 24 Hours (Table) 09/01/21 12:00 Body Fluid Culture - Preliminary Pleural Fluid Assessment and Plan Assessment: ASSESSMENT: Dyspnea Pneumonia Pulmonary embolism Acute exacerbation of chronic diastolic congestive heart failure, ejection fraction 55-60% New-onset paroxysmal atrial fibrillation, currently maintaining sinus mechanism History of GI bleed Metastatic melanoma with metastasis to the lung and lymph nodes Recurrent pleural effusion with pleural cath Diabetes Hypertension Hyperlipidemia History of Covid Coronary artery disease with previous CABG and PCI Acute on chronic kidney disease History of DVT Plan: PLAN: Continue Eliquis for treatment of PE and proximal atrial fibrillation, patient remains in sinus rhythm Increase hydralazine to 50 mg 3 times a day for optimal blood pressure control. Will start Norvasc 5 mg daily, first dose to be given now for blood pressure control Continue current cardiac medications Monitor kidney function. Diuretic management per nephrology: Patient received a one-time dose of Lasix today Further recommendations pending patient course Nurse practitioner note has been reviewed by physician. Signing provider agrees with the documented findings, assessment, and plan of care.
[2021-09-03 16:53] LABS: Glucose,Whole Blood 124 mg/dL (75-99)
[2021-09-03] MEDS: hydrALAZINE HCL 50 MG TAB PO SCH ×2 (17:03→20:49)
[2021-09-03] MEDS: amLODIPine 5 MG TAB PO SCH (17:03)
[2021-09-03 20:28] LABS: Glucose,Whole Blood 138 mg/dL (75-99)
[2021-09-03] MEDS: INSULIN DETEMIR (LEVEMIR) 100 UNIT/ML SYR SQ SCH (20:48)
--- NOTE | 2021-09-03 21:39 | PN ---
PROGRESS NOTE DATE OF SERVICE: 09/03/2021 REASON FOR FOLLOWUP: Possible pneumonia. INTERVAL HISTORY: The patient is afebrile. The patient is currently breathing more comfortably. The patient denies having any chest pain. No worsening cough. He did have some hemoptysis yesterday, though. No abdominal pain or diarrhea. PHYSICAL EXAMINATION: Blood pressure 158/70 with a pulse of 75, temperature 97.4. He is 93% on nasal cannula. General description is an elderly male up in a chair in no distress. Respiratory system: Unlabored breathing, coarse breath sounds bilaterally. No wheeze. Heart S1, S2. Regular rate and rhythm. Abdomen soft, no tenderness. LABS: White count is 7.3, white count 9.2, creatinine 3.71. fluid culture so far pending. CT did show effusion. DIAGNOSTIC IMPRESSION AND PLAN: Patient with metastatic melanoma with metastases to the lungs and with a PleurX catheter which is not draining; possibly clogged. CT Surgery possible consultation for the clogging of his catheter. Culture will be repeated. Patient is empirically covered with Rocephin; to continue while waiting for the culture to finalize and monitor his clinical course closely. MMODL / IJN: [id number] /
[2021-09-04] MEDS: PIPERACILLIN-TAZOBACTAM 3.375 GM in SODIUM CHLORIDE 0.9% 100 ML IVPB SCH ×2 (00:22→12:52)
[2021-09-04] MEDS: INSULIN ASPART (NovoLOG) 100 UNIT/ML VIAL SQ SCH ×3 (05:55→17:15)
[2021-09-04 05:56] LABS: Glucose,Whole Blood 89 mg/dL (75-99)
[2021-09-04] MEDS: carvediloL 12.5 MG TAB PO SCH ×2 (06:37→17:15)
[2021-09-04] MEDS ORDERED: PANTOPRAZOLE 40 MG TABLET PO SCH (07:30)
--- NOTE | 2021-09-04 08:22 | P.GSCN ---
History of Present Illness Consult date: 09/03/21 Reason for Consult: Suspected occlusion of left chest Pleurx catheter. Requesting physician: Darren Rubio History of present illness: This is a 71-year-old gentleman who follows on an outpatient basis for his primary care service with Dr. Tremaine Pereira. He has a past medical history significant for hypertension, hyperlipidemia, insulin-dependent diabetes mellitus, acute on chronic diastolic congestive heart failure, coronary artery disease with previous PCI and coronary artery bypass grafting surgery 3 vesse ls, chronic kidney disease stage III, lifetime nonsmoker and history of melanoma which he reports was in remission until March 2021, with metastasis to the lung with enlarged lymph nodes, currently being treated with immunotherapy. The patient subsequently in April 2021 had a left chest Pleurx catheter placed due to recurrent pleural effusions on his left side. The patient also reports that he did have COVID-19 infection with subsequent acute kidney injury secondary to the COVID infection. On 08/26/2021 the patient presented to the emergency department here at [facility] after his tried to wake him up in the morning and she discovered he had some mental status changes. Subsequently EMS was called and the patient was transferred to the [facility] for further evaluation and treatment recommendations. EMS found that his blood sugar was in the 30s and was given glucose without improvement in his mental status. The patient also reports that in the last 10 days his Pleurx catheter has been putting out minimal output. Prior to the 10 days he reports he was putting out about a liter of pleural fluid from the Pleurx catheter 2 times per week. During his hospitalization there has been 0 drainage from his Pleurx catheter. A computed tomography scan of his chest without contrast was completed yesterday 09/03/2021 which demonstrated enlarging pleural effusions, scattered infiltrates compatible with pneumonia and a nodular density to his left lower lobe felt to reflect trapped fluid within the fissure. On 09/01/2021 the patient also had a ultrasound done of his chest which demonstrated a right pleural effusion pocket measuring 4.9 cm and a left pleural effusion pocket measuring 4.8 cm. The patient denies any recent fever, chills, nausea, vomiting, diarrhea, constipation, hematemesis or hemoptysis. Subsequently, due to the patient's Pleurx catheter not draining a consult was placed to cardiothoracic surgery for further evaluation and treatment recommendations in regards to his Pleurx catheter. The Pleurx catheter was of note placed at the [facility]. Review of Systems A 14 point review of systems was completed was negative except as mentioned in the HPI. Past Medical History Past Medical History: Coronary Artery Disease (CAD), Cancer (Metastatic malignant melanoma of the back post resection, post lymph node dissection, left- sided pleural effusion, chronic, only metastases from malignant melanoma), Diabetes Mellitus, Eye Disorder, GERD/Reflux, GI Bleed, Hyperlipidemia, Hypertension, Myocardial Infarction ([place]), Osteoarthritis (OA), Renal Disease Additional Past Medical History / Comment(s): glaucoma in the left eye, stage III chronic kidney disease, Melanoma on back status post resection, covid-19 in September 2020 Last Myocardial Infarction Date:: 2015 History of Any Multi-Drug Resistant Organisms: None Reported Past Surgical History: Adenoidectomy, Appendectomy, Coronary Bypass/CABG, Heart Catheterization, Heart Catheterization With Stent, Orthopedic Surgery, Tonsillectomy Additional Past Surgical History / Comment(s): tumor from L shoulder, bilateral carpel tunnel, colonoscopy, R knee arthroscopy;CA removed from R ear back & abdomen; cataract L eye, liver biopsy on 08/14/18 Past Anesthesia/Blood Transfusion Reactions: No Reported Reaction Date of Last Stent Placement:: 12/07/15 Past Psychological History: No Psychological Hx Reported Additional Psychological History / Comment(s): Pt resides with his spouse. He works at [employer]. He is independent. Smoking Status: Never smoker Past Alcohol Use History: Rare Past Drug Use History: None Reported - Past Family History Father Family Medical History: No Reported History Additional Family Medical History / Comment(s): Father was a heavy smoker. He was at age 70. Mother Family Medical History: No Reported History Additional Family Medical History / Comment(s): Mother is alive and is 92 yrs old. Medications and Allergies Home Medications Medication Instructions Recorded Confirmed Type Atorvastatin [Lipitor] 80 mg PO DAILY 04/30/17 08/26/21 History Aspirin EC [Ecotrin Low Dose] 81 mg PO DAILY 10/18/20 08/26/21 History Ergocalciferol [Vitamin D2 (1250 1,250 mcg PO HERBERT 03/16/21 08/26/21 History Mcg = 61608 Iu)] Furosemide [Lasix] 40 mg PO Q48H 08/26/21 08/26/21 History Insulin Detemir [Levemir Flextouch 35 units SQ HS 08/26/21 08/26/21 History Pen] amLODIPine [Norvasc] 10 mg PO DAILY 08/26/21 08/26/21 History calcitrioL [Calcitriol] 0.25 mcg PO HERBERT 08/26/21 08/26/21 History carvediloL [Coreg*] 12.5 mg PO BID 08/26/21 08/26/21 History hydrALAZINE HCL [Apresoline] 25 mg PO BID 08/26/21 08/26/21 History Apixaban [Eliquis Starter Pack 5 - 10 mg PO DIRECTED 30 Days 08/30/21 Rx (for VTE)] #1 each Allergies Allergy/AdvReac Type Severity Reaction Status Date / Time No Known Allergies Allergy Verified 08/26/21 14:19 Surgical - Exam Vital Signs Pulse Resp BP Pulse Ox 68 18 150/68 93 L 08/26/21 10:53 08/26/21 10:53 08/26/21 10:53 08/26/21 10:53 - General Currently sitting up to the bedside chair, appears comfortable, cooperative and is in no apparent acute distress. well developed, well nourished, no distress, no pain, chronically ill - Eyes PERRL, normal ocular movement, no pale, no icteric - ENT normal pinna, normal nares, normal mucosa, no hearing loss, no congestion - Neck Neck is supple, no JVD. no masses, no bruits, trachea midline, no venous distension - Respiratory Lung sounds essentially clear to his upper lobes, diminished to his bilateral bases with few scattered crackles mainly to his left lower lobe. Respirations are symmetrical and nonlabored. Achieving 750-1001 L on his incentive spirometry. Left chest Pleurx catheter in place with dressing clean, dry and intact. - Cardiovascular Regular rhythm and rate. S1 and S2 present, negative for S3, gallop or murmur. Edema present to his bilateral lower extremities. +1 edema to his left lower extremity and +2 edema to his right lower extremity. - Abdomen Abdomen is soft, nontender and nondistended. Active bowel sounds present in all 4 quadrants. No guarding or rigidity. No organomegaly appreciated. - Integumentary no rash, no growths, no abnormal pigmentation - Neurologic Cranial nerves II through XII intact. - Musculoskeletal Moves all 4 extremities with equal strength bilateral. - Psychiatric oriented to time, oriented to person, oriented to place, speech is normal, memory intact Results - Labs 09/03/21 07:30 09/03/21 07:30 Abnormal Lab Results - Last 24 Hours (Table) 09/03/21 09/03/21 09/03/21 Range/Units 07:30 07:30 11:42 RBC 2.63 L (4.30-5.90) m/uL Hgb 7.6 L (13.0-17.5) gm/dL Hct 22.5 L (39.0-53.0) % RDW 15.6 H (11.5-15.5) % Chloride 114 H (98-107) mmol/L Carbon Dioxide 19 L (22-30) mmol/L BUN 99 H (9-20) mg/dL Creatinine 3.71 H (0.66-1.25) mg/dL Glucose 68 L (74-99) mg/dL POC Glucose (mg/dL) 106 H (75-99) mg/dL Total Protein 5.5 L (6.3-8.2) g/dL Albumin 2.6 L (3.5-5.0) g/dL 09/03/21 09/03/21 Range/Units 16:51 20:26 RBC (4.30-5.90) m/uL Hgb (13.0-17.5) gm/dL Hct (39.0-53.0) % RDW (11.5-15.5) % Chloride (98-107) mmol/L Carbon Dioxide (22-30) mmol/L BUN (9-20) mg/dL Creatinine (0.66-1.25) mg/dL Glucose (74-99) mg/dL POC Glucose (mg/dL) 124 H 138 H (75-99) mg/dL Total Protein (6.3-8.2) g/dL Albumin (3.5-5.0) g/dL Microbiology - Last 24 Hours (Table) 09/01/21 12:00 Gram Stain - Preliminary Pleural Fluid Body Fluid Culture - Preliminary Diphtheroid species Diabetes panel 09/03/21 Range/Units 07:30 Sodium 141 (137-145) mmol/L Potassium 4.6 (3.5-5.1) mmol/L Chloride 114 H (98-107) mmol/L Carbon Dioxide 19 L (22-30) mmol/L BUN 99 H (9-20) mg/dL Creatinine 3.71 H (0.66-1.25) mg/dL Glucose 68 L (74-99) mg/dL Calcium 8.5 (8.4-10.2) mg/dL AST 22 (17-59) U/L ALT 22 (4-49) U/L Alkaline Phosphatase 81 (38-126) U/L Total Protein 5.5 L (6.3-8.2) g/dL Albumin 2.6 L (3.5-5.0) g/dL Calcium panel 09/03/21 Range/Units 07:30 Calcium 8.5 (8.4-10.2) mg/dL Albumin 2.6 L (3.5-5.0) g/dL Pituitary panel 09/03/21 Range/Units 07:30 Sodium 141 (137-145) mmol/L Potassium 4.6 (3.5-5.1) mmol/L Chloride 114 H (98-107) mmol/L Carbon Dioxide 19 L (22-30) mmol/L BUN 99 H (9-20) mg/dL Creatinine 3.71 H (0.66-1.25) mg/dL Glucose 68 L (74-99) mg/dL Calcium 8.5 (8.4-10.2) mg/dL Adrenal panel 09/03/21 Range/Units 07:30 Sodium 141 (137-145) mmol/L Potassium 4.6 (3.5-5.1) mmol/L Chloride 114 H (98-107) mmol/L Carbon Dioxide 19 L (22-30) mmol/L BUN 99 H (9-20) mg/dL Creatinine 3.71 H (0.66-1.25) mg/dL Glucose 68 L (74-99) mg/dL Calcium 8.5 (8.4-10.2) mg/dL Total Bilirubin 0.4 (0.2-1.3) mg/dL AST 22 (17-59) U/L ALT 22 (4-49) U/L Alkaline Phosphatase 81 (38-126) U/L Total Protein 5.5 L (6.3-8.2) g/dL Albumin 2.6 L (3.5-5.0) g/dL - Imaging Chest x-ray: report reviewed, image reviewed CT scan - chest: report reviewed, image reviewed Additional studies: US Chest reviewed. Assessment and Plan Assessment: 1. 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 History of recurrent left-sided pleural effusions status post left Pleurx catheter placement. Pleurx was placed at [facility] in April 2021 3. Chronic kidney disease stage IV 4. Coronary artery disease with history of previous PCI and coronary artery bypass grafting surgery in 2016 5. History of COVID-19 infection 6. History of hypertension 7. History of hyperlipidemia 8. Insulin-dependent diabetes mellitus 9. Lifetime nonsmoker Plan: The patient was seen and examined at his bedside on the third floor cardiac stent unit. His chart diagnostics were reviewed. This case was discussed in detail with Dr. Augusto Carroll from cardiothoracic surgery. The left chest Pleurx catheter was flushed with 20 mL of sterile 0.9% normal saline without difficulty. A Pleurx drainage system was connected to the left chest Pleurx catheter with only 15-20 mL of clear drainage drained. We will instill alteplase/dornase combination through the Pleurx catheter today and let instill for 1 hour post insulation. Recommend possible thoracentesis to his right side. Medical management other comorbidities per primary care service. Her recommendations to follow based on patient's clinical course. Thank you for this consult and we look for to working with you in the care of this patient. Time with Patient: Greater than 30
[2021-09-04] MEDS ORDERED: ALTEPLASE 10 MG in SODIUM CHLORIDE 0.9% 50 ML IRRIGATION ONE (08:30)
[2021-09-04] MEDS ORDERED: DORNASE ALFA 5 MG in SODIUM CHLORIDE 0.9% 50 ML IRRIGATION ONE ×4 (08:30)
[2021-09-04] MEDS: REPAGLINIDE 1 MG TAB PO SCH ×3 (08:57→17:14)
[2021-09-04] MEDS: SODIUM BICARBONATE TAB 650 MG TAB PO SCH ×2 (09:01→20:44)
[2021-09-04] MEDS: hydrALAZINE HCL 50 MG TAB PO SCH ×3 (09:01→20:44)
[2021-09-04] MEDS: APIXABAN 5 MG TAB PO SCH (09:01)
[2021-09-04] MEDS: ASPIRIN 81 MG PO SCH (09:01)
[2021-09-04] MEDS: ATORVASTATIN 80 MG TAB PO SCH (09:01)
[2021-09-04] MEDS: FUROSEMIDE 10 MG/ML 4 ML VIAL IV SCH (09:01)
[2021-09-04] MEDS: amLODIPine 5 MG TAB PO SCH (09:01)
[2021-09-04] MEDS ORDERED: HEPARIN SODIUM 1,000 UN/ML (10ML VL) IV PRN (10:37)
[2021-09-04] MEDS ORDERED: HEPARIN SOD,PORK IN 0.45% NACL 25,000 UNIT in 0.45% NACL 1 250ML.BAG IV SCH (10:45)
--- NOTE | 2021-09-04 11:14 | P.PN ---
Subjective Progress Note Date: 09/04/21 Principal diagnosis: Paroxysmal atrial fibrillation This is a 71-year-old gentleman with a past medical history significant for metastatic melanoma with metastasis to the lung as well as lymph node and also recurrent pleural effusion as well as multiple comorbid conditions we consulted to see for further evaluation of heart failure with preserved ejection fraction as well as paroxysmal atrial fibrillation. The patient was seen this morning. He was eating his breakfast sitting in the chair comfortably. He reports no symptoms of chest pain or chest discomfort but does have shortness of breath with minimal exertion. No dizziness or lightheadedness or presyncope or syncope. He has been maintaining normal sinus mechanism. Currently he is on heparin IV. The patient hemodynamically is stable. Objective - Vital Signs Vital signs: Vital Signs Temp 98.4 F 09/04/21 08:00 Pulse 70 09/04/21 08:00 Resp 20 09/04/21 08:00 BP 148/67 09/04/21 08:00 Pulse Ox 91 L 09/04/21 08:00 Intake & Output 09/03/21 09/04/21 09/04/21 18:59 06:59 18:59 Intake Total 360 180 Output Total 425 300 600 Balance -65 -300 -420 Weight 87.3 kg Intake: Oral 360 180 Output: Drainage 600 Left Chest 600 Urine 425 300 Other: Voiding Method Toilet Urinal Urinal # Voids 3 0 - Constitutional General appearance: Present: no acute distress - Respiratory Respiratory: bilateral: diminished - Cardiovascular Rhythm: regular Heart sounds: normal: S1, S2 - Labs CBC & Chem 7: 09/03/21 07:30 09/03/21 07:30 Labs: Abnormal Lab Results - Last 24 Hours (Table) 09/03/21 09/03/21 09/03/21 Range/Units 11:42 16:51 20:26 POC Glucose (mg/dL) 106 H 124 H 138 H (75-99) mg/dL Microbiology - Last 24 Hours (Table) 09/01/21 12:00 Gram Stain - Preliminary Pleural Fluid Body Fluid Culture - Preliminary Diphtheroid species Assessment and Plan Assessment: Assessment #1 paroxysmal atrial fibrillation. The patient has been maintaining normal sinus mechanism #2 pulmonary embolism #3 metastatic melanoma #4 recurrent pleural effusion #5 multiple comorbid conditions Plan #1 continue heparin IV for anticoagulation and consider oral anticoagulation down the line #2 the patient currently on IV Lasix and that has been managed by the nephrology service #3 the echo showed normal left ventricular systolic function #4 continue the rest of the current medical regimen #5 follow-up with the patient
[2021-09-04 11:15] LABS: Basophils % (A) 0 %; Eosinophils # (A) 0.3 k/uL (0-0.7); Eosinophils % (A) 3 %; HCT 21.9 % (39.0-53.0); HGB 7.4 gm/dL (13.0-17.5); Hypochromasia Slight; Lymphocytes # (A) 0.4 k/uL (1.0-4.8); Lymphocytes % (A) 4 %; MCH 29.4 pg (25.0-35.0); MCV 86.4 fL (80.0-100.0); Mean Platelet Volume 7.3; Monocytes # (A) 0.5 k/uL (0-1.0); Monocytes % (A) 6 %; Neutrophils % (A) 86 %; Platelet Count 230 k/uL (150-450); Poikilocytosis Slight; RBC 2.53 m/uL (4.30-5.90); RDW 15.8 % (11.5-15.5); WBC 9.3 k/uL (3.8-10.6)
--- NOTE | 2021-09-04 11:37 | P.PN ---
Subjective Patient is seen in follow-up for acute kidney injury on chronic kidney disease. Morning labs pending. 600 mL drained from the Pleurx catheter this morning. Oral intake good. Nonoliguric. No vomiting or diarrhea. Vital signs are stable. General: The patient appeared well nourished and normally developed. HEENT: Head exam is unremarkable. LUNGS: Breath sounds decreased. Pleurx catheter noted. HEART: Rate and Rhythm are regular. ABDOMEN: Soft, no distention. EXTREMITITES: 1+ edema left lower extremity. Objective - Vital Signs Vital signs: Vital Signs Temp 98.4 F 09/04/21 08:00 Pulse 70 09/04/21 08:00 Resp 20 09/04/21 08:00 BP 148/67 09/04/21 08:00 Pulse Ox 91 L 09/04/21 08:00 Intake & Output 09/03/21 09/04/21 09/04/21 18:59 06:59 18:59 Intake Total 360 180 Output Total 425 300 600 Balance -65 -300 -420 Weight 87.3 kg Intake: Oral 360 180 Output: Drainage 600 Left Chest 600 Urine 425 300 Other: Voiding Method Toilet Urinal Urinal # Voids 3 0 - Labs CBC & Chem 7: 09/04/21 10:16 09/03/21 07:30 Labs: Abnormal Lab Results - Last 24 Hours (Table) 09/03/21 09/03/21 09/03/21 Range/Units 11:42 16:51 20:26 RBC (4.30-5.90) m/uL Hgb (13.0-17.5) gm/dL Hct (39.0-53.0) % RDW (11.5-15.5) % Neutrophils # (1.3-7.7) k/uL Lymphocytes # (1.0-4.8) k/uL POC Glucose (mg/dL) 106 H 124 H 138 H (75-99) mg/dL 09/04/21 Range/Units 10:16 RBC 2.53 L (4.30-5.90) m/uL Hgb 7.4 L (13.0-17.5) gm/dL Hct 21.9 L (39.0-53.0) % RDW 15.8 H (11.5-15.5) % Neutrophils # 8.0 H (1.3-7.7) k/uL Lymphocytes # 0.4 L (1.0-4.8) k/uL POC Glucose (mg/dL) (75-99) mg/dL Microbiology - Last 24 Hours (Table) 09/01/21 12:00 Gram Stain - Preliminary Pleural Fluid Body Fluid Culture - Preliminary Diphtheroid species Assessment and Plan Plan: Assessment: 1. Acute kidney injury secondary to ATN secondary to cardiorenal syndrome. Creatinine 3.59 on admission - fairly stable at 3.71 today. 2. Chronic kidney disease stage IV secondary to diabetic kidney disease with baseline creatinine near 2.5. 3. Acute on chronic diastolic CHF with moderate tricuspid regurgitation and pulmonary hypertension. 4. Volume overload. 5. Malignant melanoma with metastasis. 6. Hypokalemia from poor intake and diuretics. Improved. 7. Chronic kidney disease mineral bone disease maintained on calcitriol. 8. Diabetes mellitus. Hypoglycemic on admission. 9. Hypertension with chronic kidney disease. Stable. 10. Pneumonia on antibiotics. Tested negative for COVID-19. 11. Metabolic acidosis secondary to acute kidney injury. On oral bicarbonate. 12. Recurrent pleural effusions. Has a left Pleurx catheter. 13. Anemia of chronic kidney disease maintained on Aranesp. Plan: Maintain IV Lasix. Follow-up morning labs. Avoid nephrotoxins. Continue to monitor renal function and urine output. Renal replacement therapy discussed with the patient. No urgency at this time. He is agreeable to proceed if needed.
[2021-09-04 12:05] LABS: Glucose,Whole Blood 209 mg/dL (75-99)
[2021-09-04 12:12] LABS: Calcium 8.4 mg/dL (8.4-10.2); Magnesium 2.4 mg/dL (1.6-2.3); Potassium 4.6 mmol/L (3.5-5.1)
[2021-09-04 12:38] LABS: INR 1.3 (<1.2); Partial Thromboplastin Time 47.5 sec (22.0-30.0); Prothrombin Time 13.5 sec (9.0-12.0)
--- NOTE | 2021-09-04 14:39 | P.PN ---
Subjective Progress Note Date: 09/04/21 History of present illness This is a 71-year-old gentleman patient of Dr. Wyatt Pereira. He has underlying history of diabetes mellitus type 2, CAD with prior CABG, CK D stage III, hypertension, history of melanoma was in remission until March when patient was noted to have metastatic melanoma with metastases to the lung with enlarged lymph nodes currently on immunotherapy. Patient had recent covid infection in September, with acute kidney injury secondary to covid infection September 2020 and follow Ernie since then. Patient was again admitted in November 09 for 2 days for acute diastolic congestive heart failure secondary to withdrawal off diuretics due to worsening kidney function. He was seen in the ER in March 20 for shortness of breath secondary to metastatic melanoma to his lungs with bilateral pleural effusions. Patient has been getting frequent thoracentesis an d underwent pigtail catheter placement in the left chest in April. He was initially getting fluid removed up to 1 L every day but currently patient is getting fluid removed up to 550 mL once a week, last one 2 days ago. Patient has noticed poor appetite and increased shortness of breath for the past 1 week. He had his Covid booster 6 days ago following which he went to [facility] to have a brain MRI and CT. He received his immunotherapy 3 days ago. He has not recovered since then. His noticed poor appetite increased weakness associated with cough and shortness of breath. Patient was found to have low blood sugar in the low 30s which came back to normal. EKG demonstrated atrial fibrillation In the ER patient is noted to be hypoxic and was placed on 5 L of high flow still saturating at 89%. Otherwise patient is afebrile pulse 66 respiratory rate 18 blood pressure 127/58. He had a leukocytosis of 11, hemoglobin 9.9 platelet 225, BUN 109 creatinine 3.59. Sodium 139 potassium 3.4 chloride 110 [place]icarb 18 [place] [address] Chest x-ray on 08/26 suggests cardiomegaly with small left pleural effusion R [id number] interstitial edema concerning for CHF exacerbation was noted. CT chest was obtained that showed bilateral pleural effusion with basilar pulmonary airspace infiltrates and atelectasis significantly increased compared to old exam with cardiomegaly and mediastinotomy edema but the similar to old exam. 08/28: Patient has been seen and followed by cardiology with recommendations to continue current medications. Echocardiogram has been obtained and report is pending. Patient is also followed by nephrology with recommendations to continue diuretics, discontinue Norvasc. Repeat chest x-ray reveals stable bibasilar right greater than left patchy and interstitial opacities with stable moderate cardiomegaly, trace left pleural effusion may be on the basis of multi focal pneumonia/atelectasis and/or heart failure. No pneumothorax. Patient has been afebrile, heart rate 62, blood pressure 126/66, pulse ox 94% on 6 L nasal cannula. Plan is to wean oxygen down. Repeat blood work reveals sodium 140, potassium 3.7, chloride 110, CO2 19, BUN 107, creatinine 3.86. Blood sugars are running mostly in the 300s this morning 133. Prandin 1 mg with meals added and Levemir increased to home dose of 35 units at bedtime. Patient has Albright catheter in place which we will have removed today and bladder scan postvoid. Home oxygen assessment to be done. 08/29: Patient is seen today on the cardiac stepdown unit. He is followed by nephrology with recommendations to maintain Albright catheter, avoid hypotension, nephro toxic agents and continue IV fluids at 50 ML's per hour. We have discontinued vancomycin. Patient has also been seen by cardiology. Patient is currently on Zosyn. VQ scan ordered to rule out pulmonary embolism due to ongoing hypoxia. Patient is requiring 6 L nasal cannula with pulse ox of 92%. He's been afebrile, heart rate 66, blood pressure 133/68. Repeat blood work reveals sodium 138, potassium 4.2, chloride 109, CO2 19, BUN 103 and creatinine 4.04. Blood sugars are running between 167 and 249.. Ultrasound of the right lower extremity revealed DVT but could not be determined if this was acute and suggest chronic component. Chest x-ray reveals heart failure underlying pneumonia not excluded. 08/30: Patient is currently on IV heparin for pulmonary embolism.patient does have history of lower extremity DVT which he states he completed course of anticoagulation. Discussed case with oncology and we will plan for eliquis, prescription is been sent to his pharmacy. Pneumonia has been ruled out and antibiotics will be discontinued. Patient has Albright catheter in place which will be discontinued today if okay with nephrology and check postvoid residual. The blood work reveals WBC 8.5, hemoglobin 8.0. BUN 107, creatinine 4.2, CO2 19. Patient has been seen by PT and OT with recommendations for home. 08/31: Catheter was discontinued this morning and bladder scan is ordered for 1 PM. Patient has increased breath sounds on left-sided chest x-ray ordered today. Renal function is slightly improved from yesterday with BUN of 99 and creatinine 3.99. Hemoglobin 7.6. TSH is 2.740. Patient will be started on eliquis and heparin discontinued. She has been afebrile, heart rate 70, blood pressure 141/76, pulse ox 92% on 4 L nasal cannula. The patient may require home oxygen therapy and we will assess closer to discharge. Renal ultrasound revealed no hydronephrosis or nephrolithiasis. There is increased echogenicity of the renal cortex which can be sutured with chronic medical renal disease. Chest x-ray reveals correlate for heart failure otherwise diffuse pneumonia. Findings stable. 09/01: Patient has been afebrile, heart rate 69, blood pressure 167/79, pulse ox 91%. He is now on 7 L nasal cannula. Ultrasound of the chest will be done to evaluate pleural effusions. Patient was transitioned from heparin drip to eliquis yesterday and oncology wants him on eliquis for life. Patient continues to have lower extremity edema. Repeat blood work reveals BUN of 101, creatinine 3.88, CO2 of 20. Blood sugars are running between 130 and 182. We will ask for Dr. Suarez to evaluate for pneumonia. And patient started on Zosyn. Patient does have pleural cath in place which nurse tried to drain today but no output. 09/02: Hemoglobin this morning is 6.7 and patient will be transfused 1 unit of packed RBCs. Repeat blood work for tomorrow.Blood glucose ran between 100 and 180. One dose of IV Lasix ordered by nephrology. 09/03: Patient states that he has been sleeping in his chair because it is easier to breathe. He did require nonrebreather for a few hours during the night. We will order 1 dose of IV Lasix today 40 mg. He has been afebrile, heart rate 72, blood pressure 150/75 and pulse ox 93% on 9 L nasal cannula. Blood sugars have been running mostly between 9785 but only 68 this morning. Hemoglobin today is 7.6 after 1 unit of packed RBC dose infused yesterday. BUN 99 and creatinine 3.71. CO2 19. Patient is on sodium bicarb oral. He is followed closely by nephrology. Consult added for pulmonary medicine. 09/04: Cardiothoracic surgery drained half liter from Pleurx catheter on the left side and recommendations are for drainage on the right side. Interventional radiology added to perform this. At this time, plan is for Dr. Dee to do a right-sided thoracentesis on Saturday. We have transitioned patient off eliquis and onto heparin drip and this will need to be held 4 hours prior to procedure on Saturday. Patient has been afebrile, heart rate 70, blood pressure 148/67, pulse ox 91% on 8 L nasal cannula. Repeat blood work reveals WBC 9.3, hemoglobin 7.4. INR is 1.3. BUN 100 and creatinine 4.04. Blood sugars are running between 89 and 209. Pleural fluid is showing diphtheroid species. Review Of Systems: Constitutional: No fever, no chills, no night sweats. No weight change. Reports weakness,Reports fatigue no lethargy. No daytime sleepiness. EENT: No headache. No blurred vision or double vision, no loss of vision. No loss of Hearing, no ringing in the ears, no dizziness. No nasal drainage or congestion. No epistaxis. No sore throat. Lungs: No shortness of breath, cough, no sputum production. No wheezing. Cardiovascular: No chest pain, no lower extremity edema. No palpitations. No paroxysmal nocturnal dyspnea. Reports orthopnea. No lightheadedness or dizziness. No syncopal episodes. Abdominal: No abdominal pain. No nausea, vomiting. No diarrhea. No constipation. No bloody or tarry stools.. No loss of appetite. Genitourinary: No dysuria, increased frequency, urgency. No urinary retention. Musculoskeletal: No myalgias. Reports muscle weakness, no gait dysfunction, no frequent falls. No back pain. No neck pain. Integumentary: No wounds, no lesions. No rash or pruritus. No unusual bruising. Neurologic: No aphasia. No facial droop. No change in mentation. No head injury. No headache. No paralysis. No paresthesia. Psychiatric: No depression. No anxiety. No mood swings. Endocrine: Noted abnormal blood sugars. No weight change. No excessive sweating or thirst. No cold intolerance. Physical exam Gen: This is a 71-year-old male. He is resting in recliner appears to be fairly comfortable. He is currently on O2 at 8 L. HEENT: Head is atraumatic, normocephalic. Pupils equal, round. Sclerae is anicteric. NECK: Supple. No JVD. No lymphadenopathy. No thyromegaly. LUNGS: Decreased breath sounds bilaterally with bilateral crackles in the bases. Pleural catheter in the left side. No intercostal retractions. HEART: Irregularly irregular rate and rhythm. No murmur. ABDOMEN: Soft. Bowel sounds are present. No masses. No tenderness. EXTREMITIES: Bilateral pedal edema. No calf tenderness. NEUROLOGICAL: Patient is awake, alert and oriented x3. Cranial nerves 2 through 12 are grossly intact. - Constitutional Assessment and plan Acute diastolic heart failure, ejection fraction 55-60% with severe concentric left ventricle hypertrophy and moderate to severe pulmonary hypertension moderate tricuspid regurgitation on October 2020. IV Lasix 40 mg daily starting today. Monitor I&O and daily weights, also followed by cardiology. Acute hypoxic respiratory failure secondary to CHF exacerbation and bilateral pleural effusions, pulmonary embolism, pneumonia possible. Continue eliquis 10 mg twice daily for 10 days--HOLD WHILE WAITING FOR RIGHT THORACENTESIS. Patient started on heparin gtt for now. Continue Zosyn, consult with infectious disease appreciated. Consult added for pulmonary medicine. Acute kidney injury secondary to ATN with cardiorenal syndrome on chronic kidney disease stage IV secondary to diabetic kidney disease with baseline creatinine 2.5. Nephrology consult appreciated, Lasix 40 mg IV daily, avoid nephrotoxic agents, monitor renal function. New onset paroxysmal atrial fibrillation. Continue Coreg 12.5 twice a day and eliquis due to PE (on hold). Metastatic melanoma with metastasis to the lung and lymph nodes enlargement. On immunotherapy, follows Dr. Umaña. Consult with oncology appreciated. Recurrent pleural effusion With pleural cath involving the left pleural cavity. Follows cardiothoracic surgeon at the [facility]. Hypoglycemia with history Diabetes mellitus type 2, hypoglycemia resolved. A1c 8.8. Levemir 22 units at bedtime, Prandin 1 mg with meals, Insulin sliding scale. Anemia of kidney disease. Patient is status post iron infusion, 1 unit of packed RBCs. Continue Aranesp. CAD with prior CABG in the past, status post occlusive disease in the LAD, and diagonal branch. Continue aspirin, Coreg, Lipitor 80 mg daily Covid infection 19 on 10/18, Received Covid booster 1 week Uncontrolled hypertension. Coreg 12.5 mg twice daily, hydralazine 25 mg twice daily, Hyperlipidemia. Continue atorvastatin 80 mg daily History of GI bleed, none currently, was previously on Eliquis. Patient on aspirin only DVT prophylaxis. Eliquis CODE STATUS full code DISCHARGE PLAN Home. Impression and plan of care have been directed as dictated by the signing physician. Marry Andre nurse practitioner acting as scribe for signing physician. Objective - Vital Signs Vital signs: Vital Signs Temp 98.4 F 09/04/21 08:00 Pulse 70 09/04/21 08:00 Resp 20 09/04/21 08:00 BP 148/67 09/04/21 08:00 Pulse Ox 91 L 09/04/21 08:00 Intake & Output 09/03/21 09/04/21 09/04/21 18:59 06:59 18:59 Intake Total 360 180 Output Total 425 300 Balance -65 -300 180 Weight 87.3 kg Intake: Oral 360 180 Output: Urine 425 300 Other: Voiding Method Toilet Urinal Urinal # Voids 3 0 - Labs CBC & Chem 7: 09/04/21 10:16 09/04/21 11:21 Labs: Abnormal Lab Results - Last 24 Hours (Table) 09/03/21 09/03/21 09/03/21 Range/Units 11:42 16:51 20:26 POC Glucose (mg/dL) 106 H 124 H 138 H (75-99) mg/dL Microbiology - Last 24 Hours (Table) 09/01/21 12:00 Gram Stain - Preliminary Pleural Fluid Body Fluid Culture - Preliminary Diphtheroid species
--- NOTE | 2021-09-04 15:54 | XR ---
EXAMINATION TYPE: XR chest 1V portable DATE OF EXAM: 09/04/2021 COMPARISON: Chest x-ray 08/31/2021 HISTORY: Post right thoracentesis TECHNIQUE: Single frontal view of the chest is obtained. FINDINGS: There is no evident pneumothorax. Bilateral airspace disease is present, pleural thickenin g again noted in the left hemithorax. Patient is post median sternotomy. Left heart border is obscure d. There is a Pleurx catheter at the left lung base. IMPRESSION: No evident complication status post thoracentesis.
[2021-09-04 17:04] LABS: Glucose,Whole Blood 173 mg/dL (75-99)
--- NOTE | 2021-09-04 17:11 | OP ---
OPERATIVE REPORT OPERATIVE REPORT: Right-sided thoracocentesis. PREOPERATIVE DIAGNOSIS: Right pleural effusion. POSTOPERATIVE DIAGNOSIS: Right pleural effusion. ANESTHESIA USED: 3 mL of 1% lidocaine. PROCEDURE DESCRIPTION: The patient was placed in the sitting-upright position. The area below the right scapula was prepared in a sterile fashion. Drapes were applied. The area of the pleural fluid was earlier localized by ultrasound guidance, and it correlated with the level of the ninth intercostal space and tip of the scapula. The area was locally anesthetized with lidocaine. Then a 26-gauge needle was inserted into the pleural space. Fluid was localized with the needle. Then a small tiny incision was made. A 9-Romansh thoracentesis catheter was used, inserted at the same site, advanced into the pleural space and inserted. The fluid was obtained and the catheter was advanced over the needle into the pleural space and the needle was pulled out of the pleural space. Freely flowing fluid was removed from the pleural space. Roughly 1750 mL of slightly serosanguineous fluid was drained from the right pleural space and it was sent for different diagnostic studies. Chest x-ray was ordered postoperatively. It is pending at the time of dictation. Again, clinically no evidence of any immediate complication. MMODL / IJN: [id number] /
--- NOTE | 2021-09-04 17:39 | P.PN ---
Subjective Progress Note Date: 09/04/21 Principal diagnosis: Acute hypoxic respiratory failure secondary to bilateral pleural effusions and history of metastatic melanoma. This is a 70-year-old gentleman patient of Dr. Wyatt Pereira. He has underlying history of diabetes mellitus type 2, CAD with prior CABG, CK D stage III, hypertension, history of melanoma was in remission until March when patient was noted to have met metastatic melanoma with metastases to the lung with enlarged lymph nodes currently on immunotherapy. Patient had recent covid infection in September, with acute kidney injury secondary to covid infection September 2020 and follow Ernie since then. Patient was again admitted in November 09 for 2 days for acute diastolic congestive heart failure secondary to withdrawal off diuretics due to worsening kidney function. He was seen in the ER in March 20 for shortness of breath secondary to metastatic melanoma to his lungs with bilateral pleural effusions. Patient has been getting frequent thoracentesis and underwent pigtail catheter placement in the left chest in April. He was initially getting fluid removed up to 1 L every day but currently patient is getting fluid removed up to 550 mL once a week, last one 2 days ago. Note that the patient's progress catheter was inserted at [facility]. His original thoracentesis was also done at [facility]. As mentioned, there has been significant drop in the output from the Pleurx catheter. He is current hospitalization, another drainage was attempted and there was no output. Meanwhile, the patient's oxidation progressively been getting worse and the patient is currently at that is about 2 by nasal cannula. No fever. No chills. No hemoptysis to no pleurisy. No swelling lower extremities. A CAT scan of the chest was done at time of admission and the patient was found to have bilateral pleural effusion with basilar pulmonary infiltrates/atelectasis that increased compared to the old examination. There was also mediastinal lymphadenopathy. The Pleurx catheter was in the left chest. Left-sided pleural effusion itself seemed to be somewhat loculated. On today's evaluation, the patient has a white cell count 9.2 with a hemoglobin of 7.6. Has chronic kidney disease, stage IV with a creatinine of 3.7 and the BUN of 99. He has an anion gap metabolic acidosis with a bicarb level of 19. Currently, he is on IV Zosyn as an empiric antibiotic coverage. Reevaluated today on 09/04/2021, patient remains on the regular medical floor, his Pleurx catheter was addressed by surgery, patient received TPA into the Pleurx catheter, and apparently it's functioning again. I saw him today mostly for his right-sided pleural effusion, underwent thoracentesis, and I was able to drain over 1750 mL of serosanguineous fluid from the right pleural space. Patient felt better, postoperative chest x-ray showed complete resolution of his right-sided pleural effusion. Patient is doing well from the pulmonary per spective, the fluid was drained was sent for different diagnostic studies. Patient is on 7 L nasal cannula, O2 sats is 96%. Electrolytes are normal BUN is 100 creatinine 4.04. And that being addressed by nephrology on the case. Objective - Vital Signs Vital signs: Vital Signs Temp 99.1 F 09/04/21 16:50 Pulse 84 09/04/21 16:50 Resp 20 09/04/21 16:50 BP 150/67 09/04/21 16:50 Pulse Ox 96 09/04/21 16:50 Intake & Output 09/03/21 09/04/21 09/04/21 18:59 06:59 18:59 Intake Total 360 420 Output Total 425 300 600 Balance -65 -300 -180 Weight 87.3 kg Intake: Oral 360 420 Output: Drainage 600 Left Chest 600 Urine 425 300 Other: Voiding Method Toilet Urinal Urinal # Voids 3 0 - Exam Gen: This is a 71-year-old male. On 7 L nasal cannula, in no distress. HEENT: Head is atraumatic, normocephalic. Pupils equal, round. Sclerae is anicteric. NECK: Supple. No JVD. No lymphadenopathy. No thyromegaly. LUNGS: Decreased breath sounds bilaterally with bilateral crackles in the bases. Pleural catheter in the left side. No intercostal retractions. HEART: Irregularly irregular rate and rhythm. No murmur. ABDOMEN: Soft. Bowel sounds are present. No masses. No tenderness. EXTREMITIES: Bilateral pedal edema. No calf tenderness. NEUROLOGICAL: Patient is awake, alert and oriented x3. Cranial nerves 2 through 12 are grossly intact. - Constitutional - Labs CBC & Chem 7: 09/04/21 10:16 09/04/21 11:21 Labs: Abnormal Lab Results - Last 24 Hours (Table) 1209/04/21 09/04/21 Range/Units 20:26 10:16 11:21 RBC 2.53 L (4.30-5.90) m/uL Hgb 7.4 L (13.0-17.5) gm/dL Hct 21.9 L (39.0-53.0) % RDW 15.8 H (11.5-15.5) % Neutrophils # 8.0 H (1.3-7.7) k/uL Lymphocytes # 0.4 L (1.0-4.8) k/uL PT (9.0-12.0) sec INR (<1.2) APTT (22.0-30.0) sec Chloride 113 H (98-107) mmol/L Carbon Dioxide 18 L (22-30) mmol/L BUN 100 H (9-20) mg/dL Creatinine 4.04 H (0.66-1.25) mg/dL Glucose 171 H (74-99) mg/dL POC Glucose (mg/dL) 138 H (75-99) mg/dL Magnesium 2.4 H (1.6-2.3) mg/dL 09/04/21 09/04/21 09/04/21 Range/Units 11:21 12:03 17:02 RBC (4.30-5.90) m/uL Hgb (13.0-17.5) gm/dL Hct (39.0-53.0) % RDW (11.5-15.5) % Neutrophils # (1.3-7.7) k/uL Lymphocytes # (1.0-4.8) k/uL PT 13.5 H (9.0-12.0) sec INR 1.3 H (<1.2) APTT 47.5 H (22.0-30.0) sec Chloride (98-107) mmol/L Carbon Dioxide (22-30) mmol/L BUN (9-20) mg/dL Creatinine (0.66-1.25) mg/dL Glucose (74-99) mg/dL POC Glucose (mg/dL) 209 H 173 H (75-99) mg/dL Magnesium (1.6-2.3) mg/dL Microbiology - Last 24 Hours (Table) 09/01/21 12:00 Gram Stain - Preliminary Pleural Fluid Body Fluid Culture - Preliminary Diphtheroid species Assessment and Plan Assessment: Impression: Acute hypoxic respiratory failure, multifactorial, but the patient clearly had bilateral pleural effusions possibly malignant unless for otherwise, history of pulmonary embolisms, history of pneumonia, and suspect some component of diastolic congestive heart failure. Metastatic melanoma New-onset atrial fibrillation Acute kidney injury with acute tubular necrosis and history of chronic kidney disease stage IV Recurrent pleural effusions had previous left sided Pleurx catheter placed by [facility] patient underwent right-sided thoracentesis today and I was able to drain 1750 mL. History of GI bleeding Dyslipidemia History of hypertension Chronic anemia secondary to chronic renal disease Recommendation: Continue present supportive care measures Awaiting cytology report from the pleural effusion In the meantime the patient could be discharged home or considered for discharge planning if cleared by other consultants on the case. His Pleurx catheter was addressed by thoracic surgery on the case. And I have addressed his right-sided pleural effusion. Follow-up on outpatient basis with Dr. Macario postdischarge. Time with Patient: Less than 30
[2021-09-04 19:49] LABS: Appearance,BF Cloudy; Color,BF Orange; Nucleated Cells, Body Fluid 50 /uL; RBC, Body Fluid 17100 /uL
[2021-09-04 19:55] LABS: Mononuclear WBC,Body Fluid 75 %; Polynuclear WBC,Body Fluid 25 %; Total Cells Counted,Body Fluid 100
[2021-09-04 20:40] LABS: Glucose,Whole Blood 145 mg/dL (75-99)
[2021-09-04] MEDS: INSULIN DETEMIR (LEVEMIR) 100 UNIT/ML SYR SQ SCH (20:44)
--- NOTE | 2021-09-04 22:18 | PN ---
PROGRESS NOTE DATE OF SERVICE: 09/04/2021 REASON FOR FOLLOWUP: Pneumonia. INTERVAL HISTORY: Patient is afebrile. The patient is breathing comfortably. The patient is status post right-sided thoracentesis completed by pulmonary. Patient tolerated the procedure. Drainage is about 600 mL pleural fluid, has been sent for . The patient denies having any chest pain, shortness of breath. No worsening cough or sputum production. No abdominal pain or diarrhea. PHYSICAL EXAMINATION: Blood pressure 136/57, pulse 81, temperature 99.3. He is 92% on 6 L nasal cannula. General description is an elderly male up in the chair in no distress. Respiratory system: Unlabored breathing, decreased intensity of breath sounds. No wheeze. Heart S1, S2. Regular rate and rhythm. Abdomen: Soft. No tenderness. LABS: Pleural fluid obtained today is mostly bloody. Cultures obtained from the is showing diphtheroids. DIAGNOSTIC IMPRESSION AND PLAN: Patient with malignant melanoma with malignant effusion to the left side in this patient status post thoracentesis. Cultures obtained from the showing diphtheroids, more likely contaminant. The patient Zosyn to continue while waiting for repeat culture to finalize and monitor clinical course closely. MMODL / IJN: [id number] /
[2021-09-05] MEDS: PIPERACILLIN-TAZOBACTAM 3.375 GM in SODIUM CHLORIDE 0.9% 100 ML IVPB SCH ×3 (01:09→22:47)
[2021-09-05] MEDS ORDERED: MORPHINE SULFATE 2 MG/ML SYRINGE IVP PRN (01:44)
--- NOTE | 2021-09-05 03:00 | XR ---
EXAMINATION TYPE: XR chest 1V portable DATE OF EXAM: 09/05/2021 COMPARISON: 09/04/2021 HISTORY: Thoracentesis. Left side pain TECHNIQUE: Single view FINDINGS: Heart is enlarged. There is pulmonary perihilar interstitial edema. There are sternal wires . There are chest leads. There is blunting of the left costophrenic angle with pleural thickening kerrie ng the left lateral chest wall. IMPRESSION: Left pleural effusion slightly increased compared to yesterday. Cardiomegaly. Pulmonary e maru without change.
[2021-09-05 04:33] LABS: Glucose, BF Source Pleural Fluid; Glucose, Body Fluid 178 mg/dL; LDH, Body Fluid Source Pleural Fluid; Total Protein, Body Fluid 1530 mg/dL
[2021-09-05 06:01] LABS: Glucose,Whole Blood 64 mg/dL (75-99)
[2021-09-05] MEDS: INSULIN ASPART (NovoLOG) 100 UNIT/ML VIAL SQ SCH ×3 (06:10→16:49)
[2021-09-05] MEDS: REPAGLINIDE 1 MG TAB PO SCH ×2 (06:11→12:22)
[2021-09-05 06:19] LABS: Glucose,Whole Blood 94 mg/dL (75-99)
[2021-09-05 06:36] LABS: Calcium 8.3 mg/dL (8.4-10.2); Magnesium 2.3 mg/dL (1.6-2.3); Potassium 5.4 mmol/L (3.5-5.1)
[2021-09-05] MEDS: carvediloL 12.5 MG TAB PO SCH ×2 (06:45→16:37)
[2021-09-05 07:13] LABS: Anisocytosis Slight; Basophils % (A) 0 %; Eosinophils % (A) 0 %; Lymphocytes # (A) 0.3 k/uL (1.0-4.8); Lymphocytes % (A) 2 %; MCH 28.9 pg (25.0-35.0); MCHC 33.6 g/dL (31.0-37.0); MCV 86.1 fL (80.0-100.0); Mean Platelet Volume 7.8; Monocytes # (A) 0.8 k/uL (0-1.0); Monocytes % (A) 4 %; Neutrophils # (A) 18.6 k/uL (1.3-7.7); Neutrophils % (A) 93 %; Platelet Count 229 k/uL (150-450); Poikilocytosis Slight; RBC 2.12 m/uL (4.30-5.90); RDW 16.7 % (11.5-15.5); WBC 19.9 k/uL (3.8-10.6)
[2021-09-05 07:29] LABS: HCT 18.2 % (39.0-53.0); HGB 6.1 gm/dL (13.0-17.5)
--- NOTE | 2021-09-05 07:45 | P.PN ---
Subjective Progress Note Date: 09/05/21 Principal diagnosis: Paroxysmal atrial fibrillation This is a 71-year-old gentleman with a past medical history significant for metastatic melanoma with metastasis to the lung as well as lymph node and also recurrent pleural effusion as well as multiple comorbid conditions we consulted to see for further evaluation of heart failure with preserved ejection fraction as well as paroxysmal atrial fibrillation. The patient was seen this morning. He developed left sided chest discomfort yesterday and the chest x-ray showed increasing in the size of the pleural effusion on the left side. He might benefit from pleurocentesis. Beside that his hemoglobin hasn't dropped below 7. Currently he is on oral anticoagulation for both atrial fibrillation as well as pulmonary embolism. The patient might benefit from left pleurocentesis. The pleural effusion is likely to be malign bernabe related. Objective - Vital Signs Vital signs: Vital Signs Temp 99.0 F 09/05/21 04:00 Pulse 75 09/05/21 05:50 Resp 18 09/05/21 04:00 BP 120/54 09/05/21 05:50 Pulse Ox 93 L 09/05/21 04:00 Intake & Output 09/04/21 09/05/21 09/05/21 18:59 06:59 18:59 Intake Total 760 Output Total 875 500 Balance -115 -500 Weight 88 kg Intake: Intake, IV Titration 100 Amount Piperacillin-Tazobactam 3 100 .375 gm In Sodium Chloride 0.9% 100 ml @ 25 mls/hr IVPB Q12H [facility] Rx# :[id number] Oral 660 Output: Drainage 600 Left Chest 600 Urine 275 500 Other: Voiding Method Urinal # Voids 3 - Constitutional General appearance: Present: no acute distress - Respiratory Respiratory: bilateral: diminished - Cardiovascular Rhythm: regular - Labs CBC & Chem 7: 09/05/21 05:30 09/05/21 05:30 Labs: Abnormal Lab Results - Last 24 Hours (Table) 09/04/21 09/04/21 09/04/21 Range/Units 10:16 11:21 11:21 WBC (3.8-10.6) k/uL RBC 2.53 L (4.30-5.90) m/uL Hgb 7.4 L (13.0-17.5) gm/dL Hct 21.9 L (39.0-53.0) % RDW 15.8 H (11.5-15.5) % Neutrophils # 8.0 H (1.3-7.7) k/uL Lymphocytes # 0.4 L (1.0-4.8) k/uL PT 13.5 H (9.0-12.0) sec INR 1.3 H (<1.2) APTT 47.5 H (22.0-30.0) sec Potassium (3.5-5.1) mmol/L Chloride 113 H (98-107) mmol/L Carbon Dioxide 18 L (22-30) mmol/L BUN 100 H (9-20) mg/dL Creatinine 4.04 H (0.66-1.25) mg/dL Glucose 171 H (74-99) mg/dL POC Glucose (mg/dL) (75-99) mg/dL Calcium (8.4-10.2) mg/dL Magnesium 2.4 H (1.6-2.3) mg/dL 09/04/21 09/04/21 09/04/21 Range/Units 12:03 17:02 20:38 WBC (3.8-10.6) k/uL RBC (4.30-5.90) m/uL Hgb (13.0-17.5) gm/dL Hct (39.0-53.0) % RDW (11.5-15.5) % Neutrophils # (1.3-7.7) k/uL Lymphocytes # (1.0-4.8) k/uL PT (9.0-12.0) sec INR (<1.2) APTT (22.0-30.0) sec Potassium (3.5-5.1) mmol/L Chloride (98-107) mmol/L Carbon Dioxide (22-30) mmol/L BUN (9-20) mg/dL Creatinine (0.66-1.25) mg/dL Glucose (74-99) mg/dL POC Glucose (mg/dL) 209 H 173 H 145 H (75-99) mg/dL Calcium (8.4-10.2) mg/dL Magnesium (1.6-2.3) mg/dL 09/05/21 09/05/21 09/05/21 Range/Units 05:30 05:30 05:59 WBC 19.9 H (3.8-10.6) k/uL RBC 2.12 L (4.30-5.90) m/uL Hgb 6.1 L* (13.0-17.5) gm/dL Hct 18.2 L* (39.0-53.0) % RDW 16.7 H (11.5-15.5) % Neutrophils # 18.6 H (1.3-7.7) k/uL Lymphocytes # 0.3 L (1.0-4.8) k/uL PT (9.0-12.0) sec INR (<1.2) APTT (22.0-30.0) sec Potassium 5.4 H (3.5-5.1) mmol/L Chloride 111 H (98-107) mmol/L Carbon Dioxide 19 L (22-30) mmol/L BUN 101 H* (9-20) mg/dL Creatinine 4.26 H (0.66-1.25) mg/dL Glucose 61 L (74-99) mg/dL POC Glucose (mg/dL) 64 L (75-99) mg/dL Calcium 8.3 L (8.4-10.2) mg/dL Magnesium (1.6-2.3) mg/dL Microbiology - Last 24 Hours (Table) 09/04/21 15:03 Fungal Culture - Preliminary Pleural Fluid 09/04/21 15:03 Anaerobic Culture - Preliminary Pleural Fluid 09/04/21 15:03 Body Fluid Culture - Preliminary Pleural Fluid 09/04/21 15:03 Acid Fast Bacilli Culture - Preliminary Pleural Fluid 09/01/21 12:00 Gram Stain - Preliminary Pleural Fluid Body Fluid Culture - Preliminary Diphtheroid species Assessment and Plan Assessment: Assessment #1 paroxysmal atrial fibrillation. The patient has been maintaining normal sinus mechanism #2 history of pulmonary embolism #3 metastatic melanoma #4 recurrent pleural effusion #5 blood loss anemia Plan #1 we might need to consider starting oral anticoagulation #2 the patient's benefit from left sided pleurocentesis #3 overall poor prognosis
[2021-09-05 07:54] LABS: C Reactive Protein 19.2 mg/dL (<1.0)
[2021-09-05] MEDS: amLODIPine 5 MG TAB PO SCH ×2 (08:43→08:45)
[2021-09-05] MEDS: hydrALAZINE HCL 50 MG TAB PO SCH ×4 (08:43→21:17)
[2021-09-05] MEDS: SODIUM BICARBONATE TAB 650 MG TAB PO SCH ×2 (08:43→21:17)
[2021-09-05] MEDS: ATORVASTATIN 80 MG TAB PO SCH (08:43)
[2021-09-05] MEDS ORDERED: APIXABAN 5 MG TAB PO SCH (09:00)
--- NOTE | 2021-09-05 09:32 | P.PN ---
Subjective Patient is seen in follow-up for acute kidney injury on chronic kidney disease. Renal function worsening. Remains edematous. Another liter of bloody fluid drained from his lung today. Hemoglobin 6.1. Oral intake fair. No vomiting or diarrhea. Vital signs are stable. General: The patient appeared well nourished and normally developed. HEENT: Head exam is unremarkable. LUNGS: Breath sounds decreased. Pleurx catheter noted. HEART: Rate and Rhythm are regular. ABDOMEN: Soft, no distention. EXTREMITITES: 1+ edema left lower extremity. Objective - Vital Signs Vital signs: Vital Signs Temp 97.9 F 09/05/21 09:10 Pulse 66 09/05/21 09:10 Resp 16 09/05/21 09:10 BP 102/56 09/05/21 09:10 Pulse Ox 95 09/05/21 09:10 Intake & Output 09/04/21 09/05/21 09/05/21 18:59 06:59 18:59 Intake Total 760 118 Output Total 875 500 Balance -115 -500 118 Weight 88 kg Intake: Intake, IV Titration 100 Amount Piperacillin-Tazobactam 3 100 .375 gm In Sodium Chloride 0.9% 100 ml @ 25 mls/hr IVPB Q12H [facility] Rx# :[id number] Oral 660 118 Blood Product 0 Rc As-1 Unit 0 [id number] Output: Drainage 600 Left Chest 600 Urine 275 500 Other: Voiding Method Urinal # Voids 3 - Labs CBC & Chem 7: 09/05/21 05:30 09/05/21 05:30 Labs: Abnormal Lab Results - Last 24 Hours (Table) 09/02/21 09/04/21 09/04/21 Range/Units 11:45 10:16 11:21 WBC (3.8-10.6) k/uL RBC 2.53 L (4.30-5.90) m/uL Hgb 7.4 L (13.0-17.5) gm/dL Hct 21.9 L (39.0-53.0) % RDW 15.8 H (11.5-15.5) % Neutrophils # 8.0 H (1.3-7.7) k/uL Lymphocytes # 0.4 L (1.0-4.8) k/uL PT (9.0-12.0) sec INR (<1.2) APTT (22.0-30.0) sec Potassium (3.5-5.1) mmol/L Chloride 113 H (98-107) mmol/L Carbon Dioxide 18 L (22-30) mmol/L BUN 100 H (9-20) mg/dL Creatinine 4.04 H (0.66-1.25) mg/dL Glucose 171 H (74-99) mg/dL POC Glucose (mg/dL) (75-99) mg/dL Calcium (8.4-10.2) mg/dL Magnesium 2.4 H (1.6-2.3) mg/dL C-Reactive Protein (<1.0) mg/dL Crossmatch See Detail 09/04/21 09/04/21 09/04/21 Range/Units 11:21 12:03 17:02 WBC (3.8-10.6) k/uL RBC (4.30-5.90) m/uL Hgb (13.0-17.5) gm/dL Hct (39.0-53.0) % RDW (11.5-15.5) % Neutrophils # (1.3-7.7) k/uL Lymphocytes # (1.0-4.8) k/uL PT 13.5 H (9.0-12.0) sec INR 1.3 H (<1.2) APTT 47.5 H (22.0-30.0) sec Potassium (3.5-5.1) mmol/L Chloride (98-107) mmol/L Carbon Dioxide (22-30) mmol/L BUN (9-20) mg/dL Creatinine (0.66-1.25) mg/dL Glucose (74-99) mg/dL POC Glucose (mg/dL) 209 H 173 H (75-99) mg/dL Calcium (8.4-10.2) mg/dL Magnesium (1.6-2.3) mg/dL C-Reactive Protein (<1.0) mg/dL Crossmatch 09/04/21 09/05/21 09/05/21 Range/Units 20:38 05:30 05:30 WBC 19.9 H (3.8-10.6) k/uL RBC 2.12 L (4.30-5.90) m/uL Hgb 6.1 L* (13.0-17.5) gm/dL Hct 18.2 L* (39.0-53.0) % RDW 16.7 H (11.5-15.5) % Neutrophils # 18.6 H (1.3-7.7) k/uL Lymphocytes # 0.3 L (1.0-4.8) k/uL PT (9.0-12.0) sec INR (<1.2) APTT (22.0-30.0) sec Potassium 5.4 H (3.5-5.1) mmol/L Chloride 111 H (98-107) mmol/L Carbon Dioxide 19 L (22-30) mmol/L BUN 101 H* (9-20) mg/dL Creatinine 4.26 H (0.66-1.25) mg/dL Glucose 61 L (74-99) mg/dL POC Glucose (mg/dL) 145 H (75-99) mg/dL Calcium 8.3 L (8.4-10.2) mg/dL Magnesium (1.6-2.3) mg/dL C-Reactive Protein 19.2 H (<1.0) mg/dL Crossmatch 09/05/21 Range/Units 05:59 WBC (3.8-10.6) k/uL RBC (4.30-5.90) m/uL Hgb (13.0-17.5) gm/dL Hct (39.0-53.0) % RDW (11.5-15.5) % Neutrophils # (1.3-7.7) k/uL Lymphocytes # (1.0-4.8) k/uL PT (9.0-12.0) sec INR (<1.2) APTT (22.0-30.0) sec Potassium (3.5-5.1) mmol/L Chloride (98-107) mmol/L Carbon Dioxide (22-30) mmol/L BUN (9-20) mg/dL Creatinine (0.66-1.25) mg/dL Glucose (74-99) mg/dL POC Glucose (mg/dL) 64 L (75-99) mg/dL Calcium (8.4-10.2) mg/dL Magnesium (1.6-2.3) mg/dL C-Reactive Protein (<1.0) mg/dL Crossmatch Microbiology - Last 24 Hours (Table) 09/04/21 15:03 Fungal Culture - Preliminary Pleural Fluid 09/04/21 15:03 Anaerobic Culture - Preliminary Pleural Fluid 09/04/21 15:03 Body Fluid Culture - Preliminary Pleural Fluid 09/04/21 15:03 Acid Fast Bacilli Culture - Preliminary Pleural Fluid Assessment and Plan Plan: Assessment: 1. Acute kidney injury secondary to ATN secondary to cardiorenal syndrome. Creatinine 3.59 on admission - 4.26 today. 2. Chronic kidney disease stage IV secondary to diabetic kidney disease with baseline creatinine near 2.5. 3. Acute on chronic diastolic CHF with moderate tricuspid regurgitation and pulmonary hypertension. 4. Volume overload. 5. Malignant melanoma with metastasis. 6. Hypokalemia from poor intake and diuretics. Resolved. Slightly hyperkalemic today due to bleed and acidosis. 7. Chronic kidney disease mineral bone disease maintained on calcitriol. 8. Diabetes mellitus. Hypoglycemic on admission. 9. Hypertension with chronic kidney disease. Stable. 10. Pneumonia on antibiotics. Tested negative for COVID-19. 11. Metabolic acidosis secondary to acute kidney injury. On oral bicarbonate. 12. Recurrent pleural effusions. Has a left Pleurx catheter. 13. Anemia of chronic kidney disease maintained on Aranesp. Scheduled to receive blood transfusion today. Plan: Maintain IV Lasix. Avoid nephrotoxins. Continue to monitor renal function and urine output. Due to worsening renal function and volume overload, initiate renal replacement therapy. Permacath to be placed tomorrow. Anticoagulation stopped. Discussed with vascular surgery. Plan for first time in of hemodialysis tomorrow. Scheduled to receive a unit of blood today. Hold antihypertensives for systolic blood pressure less than 120. Repeat potassium level this evening.
--- NOTE | 2021-09-05 10:03 | XR ---
EXAMINATION TYPE: XR chest 1V portable DATE OF EXAM: 09/05/2021 COMPARISON: 09/05/2021 HISTORY: Abnormal x-ray TECHNIQUE: Single frontal view of the chest is obtained. FINDINGS: There are bilateral areas of infiltrate greater on the left with small effusion. Cardiomeg mary jane and postoperative changes seen with no pneumothorax. Arthropathy of the shoulders. IMPRESSION: 1. Bilateral airspace disease and left-sided pleural effusion stable.
--- NOTE | 2021-09-05 11:07 | P.PN ---
Subjective Progress Note Date: 09/05/21 Principal diagnosis: Bilateral pleural effusions with left Pleurx catheter in place, new-onset atrial fibrillation, VQ scan showing a large mismatch defect involving the right apex and right upper lobe with large segmental mismatch defect indicating high probability for pulmonary embolus. Past medical history significant for hypertension, hyperlipidemia, insulin-dependent diabetes mellitus, acute on chronic diastolic congestive heart failure, coronary artery disease with prev ious PCI and coronary artery bypass grafting surgery 3 vessels, chronic kidney disease stage III, COVID-19 infection in September 2020, lifetime nonsmoker and history of melanoma which he reports was in remission until March 2021, with metastasis to the lung with enlarged lymph nodes, currently being treated with immunotherapy. The patient subsequently in April 2021 had a left chest Pleurx catheter placed due to recurrent pleural effusions on his left side. Status post day #1 instillation of alteplase/dornase to his left Pleurx catheter with 700 mL of thin serosanguineous drainage drained 1 hour post instillation. Status post day #1 right-sided thoracentesis with 1750 mL of slightly seros anguineous pleural fluid drained by Dr. Reinoso. The patient was seen in follow-up today 09/05/2021 at his bedside on the cardiac stepdown unit. Currently sitting up to the bedside chair, is awake, alert and is in no acute distress. He reports he feels like his breathing is slightly improved today, although he is on 6 L high flow nasal cannula with oxygen saturations recorded at 93%. He is achieving 750-1001 L on his incentive spirometry. He is complaining of some left-sided chest pain where his Pleurx catheter is located. He does report the pain was a little worse throughout the night although this morning he rates his pain 2-3 out of 10 on the pain scale. His Pleurx catheter was drained for 1 L of serosanguineous colored drainage this morning without incident. Laboratory results this morning show a WBC count 19.9, hemoglobin 6.1, hematocrit 18.2, platelets 229, sodium 139, potassium 5.4, BUN 101, and creatinine 4.26. His T-max temperature last 24 hours was 99.0F. Remote telemetry showing normal sinus rhythm heart rate 74 BPM. Objective - Vital Signs Vital signs: Vital Signs Temp 97.3 F L 09/05/21 09:40 Pulse 63 12/07/21 09:40 Resp 16 09/05/21 09:40 BP 107/48 09/05/21 09:40 Pulse Ox 96 09/05/21 09:40 Intake & Output 09/04/21 09/05/21 09/05/21 18:59 06:59 18:59 Intake Total 760 118 Output Total 875 500 Balance -115 -500 118 Weight 88 kg Intake: Intake, IV Titration 100 Amount Piperacillin-Tazobactam 3 100 .375 gm In Sodium Chloride 0.9% 100 ml @ 25 mls/hr IVPB Q12H [facility] Rx# :[id number] Oral 660 118 Blood Product 0 Rc As-1 Unit 0 [id number] Output: Drainage 600 Left Chest 600 Urine 275 500 Other: Voiding Method Urinal # Voids 3 - Exam CONSTITUTIONAL: Sitting up to the bedside chair on the cardiac stepdown unit, appears comfortable, cooperative, no apparent acute distress. HEENT: Neck is supple, no JVD, no lymphadenopathy. RESPIRATORY: Lungs sounds essentially clear throughout, diminished to his bilateral bases with some few scattered crackles to his bilateral bases. Respi rations are symmetrical and nonlabored. Currently on 6 L high flow nasal cannula oxygen with oxygen saturations 93%. Able to achieve 750-1000 mL on his incentive spirometry. Strong cough. CARDIOVASCULAR: Regular rhythm and rate. S1 and S2 present, negative for S3, gallop or murmur. +1 edema to left lower extremity and 2+ edema to his right lower extremity. No calf pain or tenderness noted. GASTROINTESTINAL: Abdomen soft, nontender, nondistended. Hypoactive bowel sounds present 4 quadrants. Tolerating diet. Passing flatus. No guarding or rigidity. GENITOURINARY: Continues to void. 500 mL of urine output in the last 8 hours. INTEGUMENTARY: Skin is warm and dry with no evidence of clubbing or cyanosis. Pleurx catheter dressing to his left anterior chest is clean, dry and intact. NEUROLOGIC: No focal deficits. MUSKULOSKELETAL: Able to move all extremities, strength equal bilaterally, generalized weakness. PSYCHIATRIC: Alert and oriented to person place and time, appropriate affect, intact judgment and insight. - Allied health notes Allied health notes reviewed: nursing - Labs CBC & Chem 7: 09/05/21 05:30 09/05/21 05:30 Labs: Abnormal Lab Results - Last 24 Hours (Table) 09/02/21 09/04/21 09/04/21 Range/Units 11:45 10:16 11:21 WBC (3.8-10.6) k/uL RBC 2.53 L (4.30-5.90) m/uL Hgb 7.4 L (13.0-17.5) gm/dL Hct 21.9 L (39.0-53.0) % RDW 15.8 H (11.5-15.5) % Neutrophils # 8.0 H (1.3-7.7) k/uL Lymphocytes # 0.4 L (1.0-4.8) k/uL PT (9.0-12.0) sec INR (<1.2) APTT (22.0-30.0) sec Potassium (3.5-5.1) mmol/L Chloride 113 H (98-107) mmol/L Carbon Dioxide 18 L (22-30) mmol/L BUN 100 H (9-20) mg/dL Creatinine 4.04 H (0.66-1.25) mg/dL Glucose 171 H (74-99) mg/dL POC Glucose (mg/dL) (75-99) mg/dL Calcium (8.4-10.2) mg/dL Magnesium 2.4 H (1.6-2.3) mg/dL C-Reactive Protein (<1.0) mg/dL Crossmatch See Detail 09/04/21 09/04/21 09/04/21 Range/Units 11:21 12:03 17:02 WBC (3.8-10.6) k/uL RBC (4.30-5.90) m/uL Hgb (13.0-17.5) gm/dL Hct (39.0-53.0) % RDW (11.5-15.5) % Neutrophils # (1.3-7.7) k/uL Lymphocytes # (1.0-4.8) k/uL PT 13.5 H (9.0-12.0) sec INR 1.3 H (<1.2) APTT 47.5 H (22.0-30.0) sec Potassium (3.5-5.1) mmol/L Chloride (98-107) mmol/L Carbon Dioxide (22-30) mmol/L BUN (9-20) mg/dL Creatinine (0.66-1.25) mg/dL Glucose (74-99) mg/dL POC Glucose (mg/dL) 209 H 173 H (75-99) mg/dL Calcium (8.4-10.2) mg/dL Magnesium (1.6-2.3) mg/dL C-Reactive Protein (<1.0) mg/dL Crossmatch 09/04/21 09/05/21 09/05/21 Range/Units 20:38 05:30 05:30 WBC 19.9 H (3.8-10.6) k/uL RBC 2.12 L (4.30-5.90) m/uL Hgb 6.1 L* (13.0-17.5) gm/dL Hct 18.2 L* (39.0-53.0) % RDW 16.7 H (11.5-15.5) % Neutrophils # 18.6 H (1.3-7.7) k/uL Lymphocytes # 0.3 L (1.0-4.8) k/uL PT (9.0-12.0) sec INR (<1.2) APTT (22.0-30.0) sec Potassium 5.4 H (3.5-5.1) mmol/L Chloride 111 H (98-107) mmol/L Carbon Dioxide 19 L (22-30) mmol/L BUN 101 H* (9-20) mg/dL Creatinine 4.26 H (0.66-1.25) mg/dL Glucose 61 L (74-99) mg/dL POC Glucose (mg/dL) 145 H (75-99) mg/dL Calcium 8.3 L (8.4-10.2) mg/dL Magnesium (1.6-2.3) mg/dL C-Reactive Protein 19.2 H (<1.0) mg/dL Crossmatch 09/05/21 Range/Units 05:59 WBC (3.8-10.6) k/uL RBC (4.30-5.90) m/uL Hgb (13.0-17.5) gm/dL Hct (39.0-53.0) % RDW (11.5-15.5) % Neutrophils # (1.3-7.7) k/uL Lymphocytes # (1.0-4.8) k/uL PT (9.0-12.0) sec INR (<1.2) APTT (22.0-30.0) sec Potassium (3.5-5.1) mmol/L Chloride (98-107) mmol/L Carbon Dioxide (22-30) mmol/L BUN (9-20) mg/dL Creatinine (0.66-1.25) mg/dL Glucose (74-99) mg/dL POC Glucose (mg/dL) 64 L (75-99) mg/dL Calcium (8.4-10.2) mg/dL Magnesium (1.6-2.3) mg/dL C-Reactive Protein (<1.0) mg/dL Crossmatch Microbiology - Last 24 Hours (Table) 09/04/21 15:03 Fungal Culture - Preliminary Pleural Fluid 09/04/21 15:03 Anaerobic Culture - Preliminary Pleural Fluid 09/04/21 15:03 Body Fluid Culture - Preliminary Pleural Fluid 09/04/21 15:03 Acid Fast Bacilli Culture - Preliminary Pleural Fluid - Imaging and Cardiology Chest x-ray: report reviewed, image reviewed Assessment and Plan Assessment: 1. 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 Bilateral pleural effusions with history of recurrent left-sided pleural effusions status post left Pleurx catheter placement. Pleurx was placed at [facility] in April 2021, status post right thoracentesis on 09/04/[address] Palomo 3. Chronic kidney disease stage IV 4. New onset atrial fibrillation 5. Coronary artery disease with history of previous PCI and coronary artery bypass grafting surgery in 2016 6. History of COVID-19 infection 7. History of hypertension 8. History of hyperlipidemia 9. Insulin-dependent diabetes mellitus 10. Lifetime nonsmoker Plan: 1. Continue to follow daily chest x-rays. 2. Pleurx catheter was drained this morning for 1 L of serosanguineous colored drainage. We will continue to drain as needed. 3. Encourage use of his incentive spirometry 10 times every hour while awake. 4. Medical management and other comorbidities per primary care service recommendations. 5. More recommendations to follow based on patient's clinical course. Time with Patient: Greater than 30
[2021-09-05] MEDS: FUROSEMIDE 10 MG/ML 4 ML VIAL IV SCH (11:20)
[2021-09-05] MEDS: ASPIRIN 81 MG PO SCH (11:23)
[2021-09-05 12:00] LABS: Glucose,Whole Blood 103 mg/dL (75-99)
[2021-09-05 12:17] LABS: Reticulocyte % 6.3 % (0.5-2.0)
--- NOTE | 2021-09-05 13:54 | P.PN ---
Subjective Progress Note Date: 09/05/21 Principal diagnosis: Acute hypoxic respiratory failure secondary to bilateral pleural effusions and history of metastatic melanoma. This is a 70-year-old gentleman patient of Dr. Wyatt Pereira. He has underlying history of diabetes mellitus type 2, CAD with prior CABG, CK D stage III, hypertension, history of melanoma was in remission until March when patient was noted to have met metastatic melanoma with metastases to the lung with enlarged lymph nodes currently on immunotherapy. Patient had recent covid infection in September, with acute kidney injury secondary to covid infection September 2020 and follow Ernie since then. Patient was again admitted in November 09 for 2 days for acute diastolic congestive heart failure secondary to withdrawal off diuretics due to worsening kidney function. He was seen in the ER in March 20 for shortness of breath secondary to metastatic melanoma to his lungs with bilateral pleural effusions. Patient has been getting frequent thoracentesis and underwent pigtail catheter placement in the left chest in April. He was initially getting fluid removed up to 1 L every day but currently patient is getting fluid removed up to 550 mL once a week, last one 2 days ago. Note that the patient's progress catheter was inserted at [facility]. His original thoracentesis was also done at [facility]. As mentioned, t here has been significant drop in the output from the Pleurx catheter. He is current hospitalization, another drainage was attempted and there was no output. Meanwhile, the patient's oxidation progressively been getting worse and the patient is currently at that is about 2 by nasal cannula. No fever. No chills. No hemoptysis to no pleurisy. No swelling lower extremities. A CAT scan of the chest was done at time of admission and the patient was found to have bilateral pleural effusion with basilar pulmonary infiltrates/atelectasis that increased compared to the old examination. There was also mediastinal lymphadenopathy. The Pleurx catheter was in the left chest. Left-sided pleural effusion itself seemed to be somewhat loculated. On today's evaluation, the patient has a white cell count 9.2 with a hemoglobin of 7.6. Has chronic kidney disease, stage IV with a creatinine of 3.7 and the BUN of 99. He has an anion gap metabolic acidosis with a bicarb level of 19. Currently, he is on IV Zosyn as an empiric antibiotic coverage. Reevaluated today on 09/04/2021, patient remains on the regular medical floor, his Pleurx catheter was addressed by surgery, patient received TPA into the Pleurx catheter, and apparently it's functioning again. I saw him today mostly for his right-sided pleural effusion, underwent thoracentesis, and I was able to drain over 1750 mL of serosanguineous fluid from the right pleural space. Patient felt better, postoperative chest x-ray showed complete resolution of his right-sided pleural effusion. Patient is doing well from the pulmonary pers pective, the fluid was drained was sent for different diagnostic studies. Patient is on 7 L nasal cannula, O2 sats is 96%. Electrolytes are normal BUN is 100 creatinine 4.04. And that being addressed by nephrology on the case. The patient is seen today 09/05/2021 in follow-up on the active care unit. He is currently sitting up in a chair at the bedside. Awake and alert in no acute distress. He is maintaining O2 saturations in the mid 90s on 6 L high flow nasal cannula. Afebrile. Currently hemodynamically stable. He is quite pale today. He did undergo a thoracentesis yesterday with 1750 MLS of serosanguineous fluid removed from the right chest. Yesterday TPA was infused into the left pigtail catheter was 600 bloody fluid removed. Today another 1000 mL of dark bloody fluid removed. The patient is dropping his hemoglobin. It was 6.1 this morning. He has received 2 units of packed red blood cells thus far. White count 19.9. Platelets 229. Sodium 139. Potassium 5.4. Creatinine 4.26. He remains on IV diuretics, antibiotics in the form of Zosyn. Eliquis remains on hold. Objective - Vital Signs Vital signs: Vital Signs Temp 97.9 F 09/05/21 11:03 Pulse 63 09/05/21 11:03 Resp 16 09/05/21 11:03 BP 102/47 09/05/21 11:03 Pulse Ox 96 09/05/21 11:03 Intake & Output 09/04/21 09/05/21 09/05/21 18:59 06:59 18:59 Intake Total 760 668 Output Total 875 500 Balance -115 -500 668 Weight 88 kg Intake: Intake, IV Titration 100 Amount Piperacillin-Tazobactam 3 100 .375 gm In Sodium Chloride 0.9% 100 ml @ 25 mls/hr IVPB Q12H [facility] Rx# :[id number] Oral 660 358 Blood Product 310 Rc As-1 Unit 310 [id number] Output: Drainage 600 Left Chest 600 Urine 275 500 Other: Voiding Method Urinal Urinal # Voids 3 - Exam Gen: This is a pleasant 71-year-old male. On 6 L nasal cannula, in no distress. HEENT: Head is atraumatic, normocephalic. Pupils equal, round. Sclerae is anicteric. NECK: Supple. No JVD. No lymphadenopathy. No thyromegaly. LUNGS: Decreased breath sounds bilaterally with bilateral crackles in the bases. Pleural catheter in the left side. No intercostal retractions. HEART: Irregularly irregular rate and rhythm. No murmur. ABDOMEN: Soft. Bowel sounds are present. No masses. No tenderness. EXTREMITIES: Bilateral pedal edema. No calf tenderness. NEUROLOGICAL: Patient is awake, alert and oriented x3. Cranial nerves 2 through 12 are grossly intact. - Labs CBC & Chem 7: 09/05/21 05:30 09/05/21 05:30 Labs: Abnormal Lab Results - Last 24 Hours (Table) 09/02/21 09/04/21 09/04/21 Range/Units 11:45 17:02 20:38 WBC (3.8-10.6) k/uL RBC (4.30-5.90) m/uL Hgb (13.0-17.5) gm/dL Hct (39.0-53.0) % RDW (11.5-15.5) % Neutrophils # (1.3-7.7) k/uL Lymphocytes # (1.0-4.8) k/uL Retic Count (0.5-2.0) % Potassium (3.5-5.1) mmol/L Chloride (98-107) mmol/L Carbon Dioxide (22-30) mmol/L BUN (9-20) mg/dL Creatinine (0.66-1.25) mg/dL Glucose (74-99) mg/dL POC Glucose (mg/dL) 173 H 145 H (75-99) mg/dL Calcium (8.4-10.2) mg/dL C-Reactive Protein (<1.0) mg/dL Crossmatch See Detail 09/05/21 09/05/21 09/05/21 Range/Units 05:30 05:30 05:30 WBC 19.9 H (3.8-10.6) k/uL RBC 2.12 L (4.30-5.90) m/uL Hgb 6.1 L* (13.0-17.5) gm/dL Hct 18.2 L* (39.0-53.0) % RDW 16.7 H (11.5-15.5) % Neutrophils # 18.6 H (1.3-7.7) k/uL Lymphocytes # 0.3 L (1.0-4.8) k/uL Retic Count 6.3 H (0.5-2.0) % Potassium 5.4 H (3.5-5.1) mmol/L Chloride 111 H (98-107) mmol/L Carbon Dioxide 19 L (22-30) mmol/L BUN 101 H* (9-20) mg/dL Creatinine 4.26 H (0.66-1.25) mg/dL Glucose 61 L (74-99) mg/dL POC Glucose (mg/dL) (75-99) mg/dL Calcium 8.3 L (8.4-10.2) mg/dL C-Reactive Protein 19.2 H (<1.0) mg/dL Crossmatch 09/05/21 09/05/21 Range/Units 05:59 11:51 WBC (3.8-10.6) k/uL RBC (4.30-5.90) m/uL Hgb (13.0-17.5) gm/dL Hct (39.0-53.0) % RDW (11.5-15.5) % Neutrophils # (1.3-7.7) k/uL Lymphocytes # (1.0-4.8) k/uL Retic Count (0.5-2.0) % Potassium (3.5-5.1) mmol/L Chloride (98-107) mmol/L Carbon Dioxide (22-30) mmol/L BUN (9-20) mg/dL Creatinine (0.66-1.25) mg/dL Glucose (74-99) mg/dL POC Glucose (mg/dL) 64 L 103 H (75-99) mg/dL Calcium (8.4-10.2) mg/dL C-Reactive Protein (<1.0) mg/dL Crossmatch Microbiology - Last 24 Hours (Table) 09/04/21 15:03 Fungal Culture - Preliminary Pleural Fluid 09/04/21 15:03 Anaerobic Culture - Preliminary Pleural Fluid 09/04/21 15:03 Body Fluid Culture - Preliminary Pleural Fluid 09/04/21 15:03 Acid Fast Bacilli Culture - Preliminary Pleural Fluid Assessment and Plan Assessment: 1 Acute hypoxic respiratory failure, multifactorial, but the patient clearly had bilateral pleural effusions possibly malignant unless for otherwise, history of pulmonary embolisms, history of pneumonia, and suspect some component of diastolic congestive heart failure. Cytology pending 2 Metastatic melanoma 3 New-onset atrial fibrillation 4 Acute kidney injury with acute tubular necrosis and history of chronic kidney disease stage IV 5 Recurrent pleural effusions had previous left sided Pleurx catheter placed by [facility], patient underwent right-sided thoracentesis 09/04/2021 and able to drain 1750 mL. 6 History of GI bleeding 7 Dyslipidemia 8 History of hypertension 9 Chronic anemia secondary to chronic renal disease 10 Acute anemia secondary to bloody effusions requiring 2 units of packed red blood cells so far this admission Plan: The patient was seen and evaluated today Chest x-ray and labs reviewed He is quite pale and has received another unit of packed red blood cells Most likely will not be able to resume anticoagulants May benefit from IVC filter placement Continue to monitor hemoglobin Continue to monitor chest tube output We will continue to follow and make further recommendations based on his clinical status I, the cosigning physician, performed a history & physical examination of the patient. Lungs sounds with crackles in the bilateral bases. Maintaining good O2 saturations in the 90s on 6 L high flow nasal cannula. I discussed the assessment and plan of care with my nurse practitioner, Mai Malave. I attest to the above note as dictated by her.
--- NOTE | 2021-09-05 15:15 | P.PN ---
Subjective Progress Note Date: 09/05/21 This is a 71-year-old gentleman patient of Dr. Wyatt Pereira. He has underlying history of diabetes mellitus type 2, CAD with prior CABG, CK D stage III, hypertension, history of melanoma was in remission until March when patient was noted to have metastatic melanoma with metastases to the lung with enlarged lymph nodes currently on immunotherapy. Patient had recent covid infection in September, with acute kidney injury secondary to covid infection September 2020 and follow Ernie since then. Patient was again admitted in November 09 for 2 days for acute diastolic congestive heart failure secondary to withdrawal off diuretics due to worsening kidney function. He was seen in the ER in March 20 for shortness of breath secondary to metastatic melanoma to his lungs with bilateral pleural effusions. Patient has been getting frequent thoracentesis and underwent pigtail catheter placement in the left chest in April. He was initially getting fluid removed up to 1 L every day but currently patient is getting fluid removed up to 550 mL once a week, last one 2 days ago. Patient has noticed poor appetite and increased shortness of breath for the past 1 week. He had his Covid booster 6 days ago following which he went to [facility] to have a brain MRI and CT. He received his immunotherapy 3 days ago. He has not recovered since then. His noticed poor appetite increased weakness associated with cough and shortness of breath. Patient was found to have low blood sugar in the low 30s which came back to normal. EKG demonstrated atrial fibrillation In the ER patient is noted to be hypoxic and was placed on 5 L of high flow still saturating at 89%. Otherwise patient is afebrile pulse 66 respiratory rate 18 blood pressure 127/58. He had a leukocytosis of 11, hemoglobin 9.9 platelet 225, BUN 109 creatinine 3.59. Sodium 139 potassium 3.4 chloride 110 bicarb 18 [place] [address] Chest x-ray on 08/26 suggests cardiomegaly with small left pleural effusion R [id number] interstitial edema concerning for CHF exacerbation was noted. CT chest was obtained that showed bilateral pleural effusion with basilar pulmonary airspace infiltrates and atelectasis significantly increased compared to old exam with cardiomegaly and mediastinotomy edema but the similar to old exam. 08/28: Patient has been seen and followed by cardiology with recommendations to continue current medications. Echocardiogram has been obtained and report is pending. Patient is also followed by nephrology with recommendations to continue diuretics, discontinue Norvasc. Repeat chest x-ray reveals stable bibasilar right greater than left patchy and interstitial opacities with stable moderate cardiomegaly, trace left pleural effusion may be on the basis of multifocal pneumonia/atelectasis and/or heart failure. No pneumothorax. Patient has been afebrile, heart rate 62, blood pressure 126/66, pulse ox 94% on 6 L nasal cannula. Plan is to wean oxygen down. Repeat blood work reveals sodium 140, potassium 3.7, chloride 110, CO2 19, BUN 107, creatinine 3.86. Blood sugars are running mostly in the 300s this morning 133. Prandin 1 mg with meals added and Levemir increased to home dose of 35 units at bedtime. Patient has Albright catheter in place which we will have removed today and bladder scan postvoid. Home oxygen assessment to be done. 08/29: Patient is seen today on the cardiac stepdown unit. He is followed by nephrology with recommendations to maintain Albright catheter, avoid hypotension, nephro toxic agents and continue IV fluids at 50 ML's per hour. We have discontinued vancomycin. Patient has also been seen by cardiology. Patient is currently on Zosyn. VQ scan ordered to rule out pulmonary embolism due to ongoing hypoxia. Patient is requiring 6 L nasal cannula with pulse ox of 92%. He's been afebrile, heart rate 66, blood pressure 133/68. Repeat blood work reveals sodium 138, potassium 4.2, chloride 109, CO2 19, BUN 103 and creatinine 4.04. Blood sugars are running between 167 and 249.. Ultrasound of the right lower extremity revealed DVT but could not be determined if this was acute and suggest chronic component. Chest x-ray reveals heart failure underlying pneumonia not excluded. 08/30: Patient is currently on IV heparin for pulmonary embolism.patient does have history of lower extremity DVT which he states he completed course of anticoagulation. Discussed case with oncology and we will plan for eliquis, prescription is been sent to his pharmacy. Pneumonia has been ruled out and antibiotics will be discontinued. Patient has Albright catheter in place which will be discontinued today if okay with nephrology and check postvoid residual. The blood work reveals WBC 8.5, hemoglobin 8.0. BUN 107, creatinine 4.2, CO2 19. Patient has been seen by PT and OT with recommendations for home. 08/31: Catheter was discontinued this morning and bladder scan is ordered for 1 PM. Patient has increased breath sounds on left-sided chest x-ray ordered today. Renal function is slightly improved from yesterday with BUN of 99 and creatinine 3.99. Hemoglobin 7.6. TSH is 2.740. Patient will be started on eliquis and heparin discontinued. She has been afebrile, heart rate 70, blood pressure 141/76, pulse ox 92% on 4 L nasal cannula. The patient may require home oxygen therapy and we will assess closer to discharge. Renal ultrasound revealed no hydronephrosis or nephrolithiasis. There is increased echogenicity of the renal cortex which can be sutured with chronic medical renal disease. Chest x-ray reveals correlate for heart failure otherwise diffuse pneumonia. Findings stable. 09/01: Patient has been afebrile, heart rate 69, blood pressure 167/79, pulse ox 91%. He is now on 7 L nasal cannula. Ultrasound of the chest will be done to evaluate pleural effusions. Patient was transitioned from heparin drip to eliquis yesterday and oncology wants him on eliquis for life. Patient continues to have lower extremity edema. Repeat blood work reveals BUN of 101, creatinine 3.88, CO2 of 20. Blood sugars are running between 130 and 182. We will ask for Dr. Suarez to evaluate for pneumonia. And patient started on Zosyn. Patient does have pleural cath in place which nurse tried to drain today but no output. 09/02: Hemoglobin this morning is 6.7 and patient will be transfused 1 unit of packed RBCs. Repeat blood work for tomorrow.Blood glucose ran between 100 and 180. One dose of IV Lasix ordered by nephrology. 09/03: Patient states that he has been sleeping in his chair because it is easier to breathe. He did require nonrebreather for a few hours during the night. We will order 1 dose of IV Lasix today 40 mg. He has been afebrile, heart rate 72, blood pressure 150/75 and pulse ox 93% on 9 L nasal cannula. Blood sugars have been running mostly between 9785 but only 68 this morning. Hemoglobin today is 7.6 after 1 unit of packed RBC dose infused yesterday. BUN 99 and creatinine 3.71. CO2 19. Patient is on sodium bicarb oral. He is followed closely by nephrology. Consult added for pulmonary medicine. 09/04: Cardiothoracic surgery drained half liter from Pleurx catheter on the left side and recommendations are for drainage on the right side. Interventional radiology added to perform this. At this time, plan is for Dr. Dee to do a right-sided thoracentesis on Saturday. We have transitioned patient off eliquis and onto heparin drip and this will need to be held 4 hours prior to procedure on Saturday. Patient has been afebrile, heart rate 70, blood pressure 148/67, pulse ox 91% on 8 L nasal cannula. Repeat blood work reveals WBC 9.3, hemoglobin 7.4. INR is 1.3. BUN 100 and creatinine 4.04. Blood sugars are running between 89 and 209. Pleural fluid is showing diphtheroid species. 09/05 patient examined bedside. He appears much pale than yesterday. Patient nurse called to him in the morning suggesting of left chest pain. Chest x-ray was obtained that suggested progression of pleural effusion. Patient had 1 L of serosanguineous drainage from the left pleural cavity this morning. Thoracentesis of the right 1750 ml were removed on 09/[address] Reinoso. Labs reviewed suggestive WBC of 19.9 hemoglobin 6.1 hematocrit 18.2 platelet 229 sodium 139 potassium 5.4 BUN 101 creatinine 4.26. Vitals reviewed suggestive of 97.9 pulse 63 respiratory rate 16 blood pressure 102/47 on 6 L high flow. Patient received 2 units of PRBC for low hemoglobin. Repeat hemoglobin in the evening. Due to progression of renal dysfunction plan for renal replacement therapy tomorrow with placement of permacath with vascular surgery. Prandin discontinued Levemir reduced to 10 units as patient's continues to have hy poglycemia Review Of Systems: Constitutional: No fever, no chills, no night sweats. No weight change. Reports weakness,Reports fatigue no lethargy. No daytime sleepiness. EENT: No headache. No blurred vision or double vision, no loss of vision. No loss of Hearing, no ringing in the ears, no dizziness. No nasal drainage or congestion. No epistaxis. No sore throat. Lungs: No shortness of breath, cough, no sputum production. No wheezing. Cardiovascular: Positive for chest pain, no lower extremity edema. No palpitations. No paroxysmal nocturnal dyspnea. Reports orthopnea. No lightheadedness or dizziness. No syncopal episodes. Abdominal: No abdominal pain. No nausea, vomiting. No diarrhea. No constipation. No bloody or tarry stools.. No loss of appetite. Genitourinary: No dysuria, increased frequency, urgency. No urinary retention. Musculoskeletal: No myalgias. Reports muscle weakness, no gait dysfunction, no frequent falls. No back pain. No neck pain. Integumentary: No wounds, no lesions. No rash or pruritus. No unusual bruising. Neurologic: No aphasia. No facial droop. No change in mentation. No head injury. No headache. No paralysis. No paresthesia. Psychiatric: No depression. No anxiety. No mood swings. Endocrine: Noted abnormal blood sugars. No weight change. No excessive sweating or thirst. No cold intolerance. Physical exam Gen: This is a 71-year-old male. He is resting in recliner appears to be fairly comfortable. He is currently on O2 at 8 L. HEENT: Head is atraumatic, normocephalic. Pupils equal, round. Sclerae is anicteric. NECK: Supple. No JVD. No lymphadenopathy. No thyromegaly. LUNGS: Decreased air entry on the left with improved aeration involving the right lung. Pleural catheter in the left side. No intercostal retractions. HEART: Irregularly irregular rate and rhythm. No murmur. ABDOMEN: Soft. Bowel sounds are present. No masses. No tenderness. EXTREMITIES: Bilateral pedal edema. No calf tenderness. NEUROLOGICAL: Patient is awake, alert and oriented x3. Cranial nerves 2 through 12 are grossly intact. - Constitutional Assessment and plan Acute blood loss anemia over anemia of chronic kidney disease status post 2 units PRBC on 09/05. Repeat hemoglobin in the evening. Eliquis discontinued Recurrent pleural effusion with pleural cath involving the left pleural cavity. Follows cardi[facility]oracic surgeon at [facility]. status post right thoracentesis on 09/04 and instillation of alteplase to his left Pleurx catheter with 700 mL thin serosanguineous drainage on 09/04 and removal of 1 L 6 serosanguineous drainage on 09/05 Hypoglycemia with history Diabetes mellitus type 2, hypoglycemia resolved. A1c 8.8. Levemir 22 units at bedtime, Prandin 1 mg with meals, Insulin sliding scale. Reduce Levemir to 10 units bedtime pending discontinued Acute diastolic heart failure, ejection fraction 55-60% with severe concentric left ventricle hypertrophy and moderate to severe pulmonary hypertension moderate tricuspid regurgitation on October 2020. IV Lasix 40 mg daily Monitor I&O and daily weights, also followed by cardiology. Acute hypoxic respiratory failure secondary to CHF exacerbation and bilateral pleural effusions, pulmonary embolism, pneumonia possible. Eliquis discontinued due to worsening pleural effusions Continue Zosyn, consult with infectious disease appreciated. Consult added for pulmonary medicine. Acute kidney injury secondary to ATN with cardiorenal syndrome on chronic kidney disease stage IV secondary to diabetic kidney disease with baseline creatinine 2.5. Nephrology consult appreciated, Lasix 40 mg IV daily, avoid nephrotoxic agents, monitor renal function. Plan for hemodialysis on 09/06 New onset paroxysmal atrial fibrillation. Continue Coreg 12.5 twice a day and eliquis due to PE (on hold). Metastatic melanoma with metastasis to the lung and lymph nodes enlargement. On immunotherapy, follows Dr. Umaña. Consult with oncology appreciated. Anemia of kidney disease. Patient is status post iron infusion, and 3 packed RBCs. Continue Aranesp. CAD with prior CABG in the past, status post occlusive disease in the LAD, and diagonal branch. Continue aspirin, Coreg, Lipitor 80 mg daily Covid infection 19 on 10/18, Received Covid booster 1 week Uncontrolled hypertension. Coreg 12.5 mg twice daily, hydralazine 25 mg twice daily, Hyperlipidemia. Continue atorvastatin 80 mg daily History of GI bleed, none currently, was previously on Eliquis. Patient on aspirin only DVT prophylaxis. Eliquis CODE STATUS full code DISCHARGE PLAN Home. Objective - Vital Signs Vital signs: Vital Signs Temp 97.3 F L 09/05/21 09:40 Pulse 63 09/05/21 09:40 Resp 16 09/05/21 09:40 BP 107/48 09/05/21 09:40 Pulse Ox 96 09/05/21 09:40 Intake & Output 09/04/21 09/05/21 09/05/21 18:59 06:59 18:59 Intake Total 760 118 Output Total 875 500 Balance -115 -500 118 Weight 88 kg Intake: Intake, IV Titration 100 Amount Piperacillin-Tazobactam 3 100 .375 gm In Sodium Chloride 0.9% 100 ml @ 25 mls/hr IVPB Q12H [facility] Rx# :[id number] Oral 660 118 Blood Product 0 Rc As-1 Unit 0 [id number] Output: Drainage 600 Left Chest 600 Urine 275 500 Other: Voiding Method Urinal # Voids 3 - Labs CBC & Chem 7: 09/05/21 05:30 09/05/21 05:30 Labs: Abnormal Lab Results - Last 24 Hours (Table) 09/02/21 09/04/21 09/04/21 Range/Units 11:45 10:16 11:21 WBC (3.8-10.6) k/uL RBC 2.53 L (4.30-5.90) m/uL Hgb 7.4 L (13.0-17.5) gm/dL Hct 21.9 L (39.0-53.0) % RDW 15.8 H (11.5-15.5) % Neutrophils # 8.0 H (1.3-7.7) k/uL Lymphocytes # 0.4 L (1.0-4.8) k/uL PT (9.0-12.0) sec INR (<1.2) APTT (22.0-30.0) sec Potassium (3.5-5.1) mmol/L Chloride 113 H (98-107) mmol/L Carbon Dioxide 18 L (22-30) mmol/L BUN 100 H (9-20) mg/dL Creatinine 4.04 H (0.66-1.25) mg/dL Glucose 171 H (74-99) mg/dL POC Glucose (mg/dL) (75-99) mg/dL Calcium (8.4-10.2) mg/dL Magnesium 2.4 H (1.6-2.3) mg/dL C-Reactive Protein (<1.0) mg/dL Crossmatch See Detail 09/04/21 09/04/21 09/04/21 Range/Units 11:21 12:03 17:02 WBC (3.8-10.6) k/uL RBC (4.30-5.90) m/uL Hgb (13.0-17.5) gm/dL Hct (39.0-53.0) % RDW (11.5-15.5) % Neutrophils # (1.3-7.7) k/uL Lymphocytes # (1.0-4.8) k/uL PT 13.5 H (9.0-12.0) sec INR 1.3 H (<1.2) APTT 47.5 H (22.0-30.0) sec Potassium (3.5-5.1) mmol/L Chloride (98-107) mmol/L Carbon Dioxide (22-30) mmol/L BUN (9-20) mg/dL Creatinine (0.66-1.25) mg/dL Glucose (74-99) mg/dL POC Glucose (mg/dL) 209 H 173 H (75-99) mg/dL Calcium (8.4-10.2) mg/dL Magnesium (1.6-2.3) mg/dL C-Reactive Protein (<1.0) mg/dL Crossmatch 09/04/21 09/05/21 09/05/21 Range/Units 20:38 05:30 05:30 WBC 19.9 H (3.8-10.6) k/uL RBC 2.12 L (4.30-5.90) m/uL Hgb 6.1 L* (13.0-17.5) gm/dL Hct 18.2 L* (39.0-53.0) % RDW 16.7 H (11.5-15.5) % Neutrophils # 18.6 H (1.3-7.7) k/uL Lymphocytes # 0.3 L (1.0-4.8) k/uL PT (9.0-12.0) sec INR (<1.2) APTT (22.0-30.0) sec Potassium 5.4 H (3.5-5.1) mmol/L Chloride 111 H (98-107) mmol/L Carbon Dioxide 19 L (22-30) mmol/L BUN 101 H* (9-20) mg/dL Creatinine 4.26 H (0.66-1.25) mg/dL Glucose 61 L (74-99) mg/dL POC Glucose (mg/dL) 145 H (75-99) mg/dL Calcium 8.3 L (8.4-10.2) mg/dL Magnesium (1.6-2.3) mg/dL C-Reactive Protein 19.2 H (<1.0) mg/dL Crossmatch 09/05/21 Range/Units 05:59 WBC (3.8-10.6) k/uL RBC (4.30-5.90) m/uL Hgb (13.0-17.5) gm/dL Hct (39.0-53.0) % RDW (11.5-15.5) % Neutrophils # (1.3-7.7) k/uL Lymphocytes # (1.0-4.8) k/uL PT (9.0-12.0) sec INR (<1.2) APTT (22.0-30.0) sec Potassium (3.5-5.1) mmol/L Chloride (98-107) mmol/L Carbon Dioxide (22-30) mmol/L BUN (9-20) mg/dL Creatinine (0.66-1.25) mg/dL Glucose (74-99) mg/dL POC Glucose (mg/dL) 64 L (75-99) mg/dL Calcium (8.4-10.2) mg/dL Magnesium (1.6-2.3) mg/dL C-Reactive Protein (<1.0) mg/dL Crossmatch Microbiology - Last 24 Hours (Table) 09/04/21 15:03 Fungal Culture - Preliminary Pleural Fluid 09/04/21 15:03 Anaerobic Culture - Preliminary Pleural Fluid 09/04/21 15:03 Body Fluid Culture - Preliminary Pleural Fluid 09/04/21 15:03 Acid Fast Bacilli Culture - Preliminary Pleural Fluid
--- NOTE | 2021-09-05 15:31 | P.PN ---
Subjective Progress Note Date: 09/05/21 Principal diagnosis: Hemoglobin continues to slowly trend down since anticoagulation Hemoglobin has dropped to 6.1, no signs of bleeding. Objective - Vital Signs Vital signs: Vital Signs Temp 97.3 F L 09/05/21 09:40 Pulse 63 09/05/21 09:40 Resp 16 09/05/21 09:40 BP 107/48 09/05/21 09:40 Pulse Ox 96 09/05/21 09:40 Intake & Output 09/04/21 09/05/21 09/05/21 18:59 06:59 18:59 Intake Total 760 118 Output Total 875 500 Balance -115 -500 118 Weight 88 kg Intake: Intake, IV Titration 100 Amount Piperacillin-Tazobactam 3 100 .375 gm In Sodium Chloride 0.9% 100 ml @ 25 mls/hr IVPB Q12H [facility] Rx# :[id number] Oral 660 118 Blood Product 0 Rc As-1 Unit 0 [id number] Output: Drainage 600 Left Chest 600 Urine 275 500 Other: Voiding Method Urinal # Voids 3 - Exam Alert nad head-supple trachea midline lungs diminished, pleurex abd soft Ext, mild - Labs CBC & Chem 7: 09/05/21 05:30 09/05/21 05:30 Labs: Abnormal Lab Results - Last 24 Hours (Table) 09/02/21 09/04/21 09/04/21 Range/Units 11:45 10:16 11:21 WBC (3.8-10.6) k/uL RBC 2.53 L (4.30-5.90) m/uL Hgb 7.4 L (13.0-17.5) gm/dL Hct 21.9 L (39.0-53.0) % RDW 15.8 H (11.5-15.5) % Neutrophils # 8.0 H (1.3-7.7) k/uL Lymphocytes # 0.4 L (1.0-4.8) k/uL PT (9.0-12.0) sec INR (<1.2) APTT (22.0-30.0) sec Potassium (3.5-5.1) mmol/L Chloride 113 H (98-107) mmol/L Carbon Dioxide 18 L (22-30) mmol/L BUN 100 H (9-20) mg/dL Creatinine 4.04 H (0.66-1.25) mg/dL Glucose 171 H (74-99) mg/dL POC Glucose (mg/dL) (75-99) mg/dL Calcium (8.4-10.2) mg/dL Magnesium 2.4 H (1.6-2.3) mg/dL C-Reactive Protein (<1.0) mg/dL Crossmatch See Detail 09/04/21 09/04/21 09/04/21 Range/Units 11:21 12:03 17:02 WBC (3.8-10.6) k/uL RBC (4.30-5.90) m/uL Hgb (13.0-17.5) gm/dL Hct (39.0-53.0) % RDW (11.5-15.5) % Neutrophils # (1.3-7.7) k/uL Lymphocytes # (1.0-4.8) k/uL PT 13.5 H (9.0-12.0) sec INR 1.3 H (<1.2) APTT 47.5 H (22.0-30.0) sec Potassium (3.5-5.1) mmol/L Chloride (98-107) mmol/L Carbon Dioxide (22-30) mmol/L BUN (9-20) mg/dL Creatinine (0.66-1.25) mg/dL Glucose (74-99) mg/dL POC Glucose (mg/dL) 209 H 173 H (75-99) mg/dL Calcium (8.4-10.2) mg/dL Magnesium (1.6-2.3) mg/dL C-Reactive Protein (<1.0) mg/dL Crossmatch 09/04/21 09/05/21 09/05/21 Range/Units 20:38 05:30 05:30 WBC 19.9 H (3.8-10.6) k/uL RBC 2.12 L (4.30-5.90) m/uL Hgb 6.1 L* (13.0-17.5) gm/dL Hct 18.2 L* (39.0-53.0) % RDW 16.7 H (11.5-15.5) % Neutrophils # 18.6 H (1.3-7.7) k/uL Lymphocytes # 0.3 L (1.0-4.8) k/uL PT (9.0-12.0) sec INR (<1.2) APTT (22.0-30.0) sec Potassium 5.4 H (3.5-5.1) mmol/L Chloride 111 H (98-107) mmol/L Carbon Dioxide 19 L (22-30) mmol/L BUN 101 H* (9-20) mg/dL Creatinine 4.26 H (0.66-1.25) mg/dL Glucose 61 L (74-99) mg/dL POC Glucose (mg/dL) 145 H (75-99) mg/dL Calcium 8.3 L (8.4-10.2) mg/dL Magnesium (1.6-2.3) mg/dL C-Reactive Protein 19.2 H (<1.0) mg/dL Crossmatch 09/05/21 Range/Units 05:59 WBC (3.8-10.6) k/uL RBC (4.30-5.90) m/uL Hgb (13.0-17.5) gm/dL Hct (39.0-53.0) % RDW (11.5-15.5) % Neutrophils # (1.3-7.7) k/uL Lymphocytes # (1.0-4.8) k/uL PT (9.0-12.0) sec INR (<1.2) APTT (22.0-30.0) sec Potassium (3.5-5.1) mmol/L Chloride (98-107) mmol/L Carbon Dioxide (22-30) mmol/L BUN (9-20) mg/dL Creatinine (0.66-1.25) mg/dL Glucose (74-99) mg/dL POC Glucose (mg/dL) 64 L (75-99) mg/dL Calcium (8.4-10.2) mg/dL Magnesium (1.6-2.3) mg/dL C-Reactive Protein (<1.0) mg/dL Crossmatch Microbiology - Last 24 Hours (Table) 09/04/21 15:03 Fungal Culture - Preliminary Pleural Fluid 09/04/21 15:03 Anaerobic Culture - Preliminary Pleural Fluid 09/04/21 15:03 Body Fluid Culture - Preliminary Pleural Fluid 09/04/21 15:03 Acid Fast Bacilli Culture - Preliminary Pleural Fluid Assessment and Plan (1) Metastatic melanoma Current Visit: Yes Status: Acute Code(s): C79.9 - SECONDARY MALIGNANT NEOPLASM OF UNSPECIFIED SITE SNOMED Code(s): 627311292 (2) Acute kidney injury Current Visit: No Status: Acute Code(s): N17.9 - ACUTE KIDNEY FAILURE, UNSP ECIFIED SNOMED Code(s): 21908998 Plan: Will recheck Hemoglobin today and monitor CBC He will unfortunetly need lifelong anticoagulation given his known underlying malignancy, this has been discussed with patient and primary team in detail With decreasing hemoglobin check anemia work-up - Ferritin increased no recommendation for Iron at htis time (08/30/21) Further Drop in hemoglobin will check hemolysis panel, thyroid function, and transfuse PRBC Renal function continues to persist subadequate He will return to [facility] for continued management of metastatic Melanoma. Continuation Keytruda Physician attest: I have completed the full history and physical and agree with above dictation, dictated as a scribe.
[2021-09-05 16:49] LABS: Glucose,Whole Blood 117 mg/dL (75-99)
[2021-09-05 17:30] LABS: Bilirubin, Delta 0.2 mg/dL (0.0-0.2); Bilirubin,Unconjugated 0.2 mg/dL (0.0-1.1); Total Bilirubin 0.4 mg/dL (0.2-1.3); Total Protein 4.4 g/dL (6.3-8.2)
[2021-09-05 17:40] LABS: INR 1.3 (<1.2); Prothrombin Time 13.7 sec (9.0-12.0)
[2021-09-05 20:32] LABS: Glucose,Whole Blood 116 mg/dL (75-99)
[2021-09-05] MEDS: INSULIN DETEMIR (LEVEMIR) 100 UNIT/ML SYR SQ SCH (21:17)
--- NOTE | 2021-09-05 22:35 | PN ---
PROGRESS NOTE DATE OF SERVICE: 09/05/2021 REASON FOR FOLLOWUP: Possible pneumonia. INTERVAL HISTORY: The patient is afebrile. The patient is breathing comfortably. Denies having any chest pain, shortness of breath. Occasional cough. No nausea, vomiting. No abdominal pain or diarrhea. PHYSICAL EXAMINATION: Blood pressure 128/58 with a pulse of 72, temperature 97.9. He is 96% on 6 L nasal cannula. General description is an elderly male lying in bed in no distress. Respiratory system: Unlabored breathing, decreased intensity of breath sounds. No wheeze. Heart S1, S2. Regular rate and rhythm. Abdomen soft, no tenderness. LABS: Reviewed. Pleural fluid cultures currently pending. DIAGNOSTIC IMPRESSION AND PLAN: Patient with malignant effusion on the left side. The cultures from the portal were positive for diphtheroids, more likely contamination. The aspirate cultures are currently pending. Patient is covered with Zosyn; to continue while waiting for the culture to finalize and monitor his clinical course closely. MMODL / IJN: [id number] /
[2021-09-06 05:58] LABS: Glucose,Whole Blood 117 mg/dL (75-99)
[2021-09-06] MEDS: INSULIN ASPART (NovoLOG) 100 UNIT/ML VIAL SQ SCH ×3 (06:12→16:43)
[2021-09-06] MEDS: carvediloL 12.5 MG TAB PO SCH ×2 (06:39→16:53)
[2021-09-06 07:13] LABS: Calcium 8.2 mg/dL (8.4-10.2); Magnesium 2.4 mg/dL (1.6-2.3); Potassium 5.1 mmol/L (3.5-5.1)
[2021-09-06 07:48] LABS: Basophils # (A) 0.1 k/uL (0-0.2); Basophils % (A) 0 %; Eosinophils # (A) 0.1 k/uL (0-0.7); Eosinophils % (A) 1 %; Hypochromasia Slight; Lymphocytes # (A) 0.4 k/uL (1.0-4.8); Lymphocytes % (A) 2 %; MCHC 32.5 g/dL (31.0-37.0); MCV 92.1 fL (80.0-100.0); Mean Platelet Volume 7.9; Monocytes # (A) 0.8 k/uL (0-1.0); Monocytes % (A) 5 %; Neutrophils # (A) 15.1 k/uL (1.3-7.7); Neutrophils % (A) 90 %; Platelet Count 211 k/uL (150-450); Poikilocytosis Slight; RBC 2.03 m/uL (4.30-5.90); RDW 15.9 % (11.5-15.5); WBC 16.8 k/uL (3.8-10.6)
[2021-09-06] MEDS: FUROSEMIDE 10 MG/ML 4 ML VIAL IV SCH (08:33)
[2021-09-06] MEDS: amLODIPine 5 MG TAB PO SCH (08:34)
[2021-09-06] MEDS: SODIUM BICARBONATE TAB 650 MG TAB PO SCH ×2 (08:34→21:35)
[2021-09-06] MEDS: ATORVASTATIN 80 MG TAB PO SCH (08:34)
[2021-09-06] MEDS: hydrALAZINE HCL 50 MG TAB PO SCH ×3 (08:34→21:35)
[2021-09-06] MEDS: ASPIRIN 81 MG PO SCH (08:35)
[2021-09-06 08:49] LABS: HGB 6.1 gm/dL (13.0-17.5)
[2021-09-06 08:50] LABS: HCT 18.7 % (39.0-53.0)
--- NOTE | 2021-09-06 09:07 | XR ---
EXAMINATION TYPE: XR chest 1V portable DATE OF EXAM: 09/06/2021 COMPARISON: 09/05/2021 HISTORY: Shortness of breath TECHNIQUE: Single frontal view of the chest is obtained. FINDINGS: There are bilateral areas of infiltrate greater on the left with small effusion. Cardiomeg mary jane and postoperative changes seen with no pneumothorax. Arthropathy of the shoulders. IMPRESSION: Bilateral airspace disease and left-sided pleural effusion stable.
--- NOTE | 2021-09-06 09:12 | P.PN ---
Subjective Progress Note Date: 09/06/21 Principal diagnosis: Bilateral pleural effusions with left Pleurx catheter in place, new-onset atrial fibrillation, VQ scan showing a large mismatch defect involving the right apex and right upper lobe with large segmental mismatch defect indicating high probability for pulmonary embolus, anemia, leukocytosis. Previous medical history of hypertension, hyperlipidemia, insulin-dependent diabetes mellitus, acute on chronic diastolic congestive heart failure, coronary artery disease with previous PCI and coronary artery bypass grafting surgery 3 vessels, chronic kidney disease stage III, COVID-19 infection in September 2020, lifetime nonsmoker and history of melanoma in remission until March 2021, with metastasis to the lung with enlarged lymph nodes, currently being treated with immunotherapy. Status post day #2 right-sided thoracentesis with 1750 mL of slightly serosan guineous pleural fluid drained by Dr. Reinoso. The patient was seen in its in this morning of the cardiac stepdown unit sitting up in bed in no acute distress. States his breathing is better than when he came in, denies any pain. Left-sided Pleurx catheter remains in place with 1 L of fluid drained yesterday. No other new concerns Objective - Vital Signs Vital signs: Vital Signs Temp 98.0 F 09/06/21 03:35 Pulse 77 09/06/21 03:35 Resp 16 09/06/21 03:35 BP 110/55 09/06/21 03:35 Pulse Ox 95 09/06/21 03:35 Intake & Output 09/05/21 09/06/21 09/06/21 18:59 06:59 18:59 Intake Total 1008 Output Total 1000 150 Balance 8 -150 Weight 88.9 kg Intake: Intake, IV Titration 100 Amount Piperacillin-Tazobactam 3 100 .375 gm In Sodium Chloride 0.9% 100 ml @ 25 mls/hr IVPB Q12H [facility] Rx# :[id number] Oral 598 Blood Product 310 Rc As-1 Unit 310 [id number] Output: Drainage 1000 Left Chest 1000 Urine 150 Other: Voiding Method Urinal Urinal # Voids 3 # Bowel Movements 1 - Exam CONSTITUTIONAL: Appears comfortable, cooperative, no acute distress RESPIRATORY: Lungs sounds diminished bilaterally, left greater than right. Respirations even, nonlabored. Currently on 6 L high flow nasal cannula with oxygen saturation 95%. Able to achieve 1000 mL on incentive spirometry. Strong cough. CARDIOVASCULAR: S1, S2 present. Regular rate and rhythm, sinus rhythm on telemetry. Palpable peripheral pulses bilaterally. Bilateral lower extremity edema present. No calf pain or tenderness noted. SCDs present. GASTROINTESTINAL: Abdomen soft, nontender, nondistended. Active bowel sounds present 4 quadrants. Tolerating diet. Positive bowel movement. GENITOURINARY: Continues to void INTEGUMENTARY: Skin is warm and dry with evidence of good perfusion. NEUROLOGIC: Cranial nerves II through XII intact MUSKULOSKELETAL: Able to move all extremities, strength equal bilaterally PSYCHIATRIC: Alert and oriented to person place and time, appropriate affect, intact judgment and insight INVASIVE LINES AND TUBES: Left Pleurx catheter in place - Allied health notes Allied health notes reviewed: nursing - Labs CBC & Chem 7: 09/06/21 05:37 09/06/21 05:37 Labs: Abnormal Lab Results - Last 24 Hours (Table) 09/02/21 09/05/21 09/05/21 Range/Units 11:45 05:30 05:30 Retic Count 6.3 H (0.5-2.0) % PT (9.0-12.0) sec INR (<1.2) D-Dimer (<0.60) mg/L FEU Sodium (137-145) mmol/L Carbon Dioxide (22-30) mmol/L BUN (9-20) mg/dL Creatinine (0.66-1.25) mg/dL POC Glucose (mg/dL) (75-99) mg/dL Calcium (8.4-10.2) mg/dL Magnesium (1.6-2.3) mg/dL Total Protein (6.3-8.2) g/dL Albumin (3.5-5.0) g/dL Procalcitonin 0.58 H (0.02-0.09) ng/mL Crossmatch See Detail 09/05/21 09/05/21 09/05/21 Range/Units 11:51 16:29 16:29 Retic Count (0.5-2.0) % PT 13.7 H (9.0-12.0) sec INR 1.3 H (<1.2) D-Dimer 8.21 H (<0.60) mg/L FEU Sodium (137-145) mmol/L Carbon Dioxide (22-30) mmol/L BUN (9-20) mg/dL Creatinine (0.66-1.25) mg/dL POC Glucose (mg/dL) 103 H (75-99) mg/dL Calcium (8.4-10.2) mg/dL Magnesium (1.6-2.3) mg/dL Total Protein 4.4 L (6.3-8.2) g/dL Albumin 2.0 L (3.5-5.0) g/dL Procalcitonin (0.02-0.09) ng/mL Crossmatch 09/05/21 09/05/21 09/06/21 Range/Units 16:44 20:30 05:37 Retic Count (0.5-2.0) % PT (9.0-12.0) sec INR (<1.2) D-Dimer (<0.60) mg/L FEU Sodium 136 L (137-145) mmol/L Carbon Dioxide 17 L (22-30) mmol/L BUN 111 H* (9-20) mg/dL Creatinine 5.12 H (0.66-1.25) mg/dL POC Glucose (mg/dL) 117 H 116 H (75-99) mg/dL Calcium 8.2 L (8.4-10.2) mg/dL Magnesium 2.4 H (1.6-2.3) mg/dL Total Protein (6.3-8.2) g/dL Albumin (3.5-5.0) g/dL Procalcitonin (0.02-0.09) ng/mL Crossmatch 09/06/21 Range/Units 05:56 Retic Count (0.5-2.0) % PT (9.0-12.0) sec INR (<1.2) D-Dimer (<0.60) mg/L FEU Sodium (137-145) mmol/L Carbon Dioxide (22-30) mmol/L BUN (9-20) mg/dL Creatinine (0.66-1.25) mg/dL POC Glucose (mg/dL) 117 H (75-99) mg/dL Calcium (8.4-10.2) mg/dL Magnesium (1.6-2.3) mg/dL Total Protein (6.3-8.2) g/dL Albumin (3.5-5.0) g/dL Procalcitonin (0.02-0.09) ng/mL Crossmatch Microbiology - Last 24 Hours (Table) 09/04/21 15:03 Gram Stain - Preliminary Pleural Fluid Body Fluid Culture - Preliminary 09/04/21 15:03 Acid Fast Bacilli Smear - Final Pleural Fluid Acid Fast Bacilli Culture - Preliminary 09/01/21 12:00 Gram Stain - Final Pleural Fluid Body Fluid Culture - Final Diphtheroid species - Imaging and Cardiology Chest x-ray: image reviewed Assessment and Plan Assessment: 1. 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 Bilateral pleural effusions with history of recurrent left-sided pleural effusions status post left Pleurx catheter placement. Pleurx was placed at [facility] in April 2021, status post right thoracentesis on 09/04/[address] Palomo 3. Chronic kidney disease stage IV 4. New onset atrial fibrillation 5. Coronary artery disease with history of previous PCI and coronary artery bypass grafting surgery in 2015 6. History of COVID-19 infection 7. History of hypertension 8. History of hyperlipidemia 9. Insulin-dependent diabetes mellitus 10. Lifetime nonsmoker 11. Anemia 12. Leukocytosis Plan: 1. Continue to follow daily chest x-rays. 2. Pleurx catheter was drained yesterday for 1 L of serosanguineous colored drainage. We will continue to drain as needed. 3. Encourage use of his incentive spirometry 10 times every hour while awake. 4. Medical management and other comorbidities per primary care service recommendations. 5. More recommendations to follow based on patient's clinical course. Time with Patient: Greater than 30
--- NOTE | 2021-09-06 10:46 | CONS ---
DATE OF CONSULTATION: 09/06/2021 This is a 71-year-old gentleman. Patient was seen for placement of a dialysis catheter. Patient has a history of acute on chronic renal failure. The patient is scheduled to have a dialysis catheter placed. MEDICAL HISTORY: History of coronary artery disease, history of melanoma, history of diabetes mellitus, history of hypertension, myocardial infarction. SURGICAL HISTORY: Patient had appendectomy, heart catheterization with stent. PHYSICAL EXAMINATION: Neck is supple. Chest has crackles bilaterally. Abdomen is soft. Femoral pulses are present. PLAN: Placement of dialysis catheter. Risks and complications discussed. MMODL / IJN: [id number] / SASHA
[2021-09-06] MEDS ORDERED: DESMOPRESSIN ACETATE 24 MCG in SODIUM CHLORIDE 0.9% 50 ML IVPB ONE (11:23)
--- NOTE | 2021-09-06 11:24 | P.PN ---
Subjective Patient is seen in follow-up for acute kidney injury on chronic kidney disease. Renal function continues to worsen. Remains edematous. Hemoglobin low despite blood transfusion yesterday. Oral intake fair. No vomiting or diarrhea. Vital signs are stable. General: The patient appeared well nourished and normally developed. HEENT: Head exam is unremarkable. LUNGS: Breath sounds decreased. Pleurx catheter noted. HEART: Rate and Rhythm are regular. ABDOMEN: Soft, no distention. EXTREMITITES: 1+ edema left lower extremity. Objective - Vital Signs Vital signs: Vital Signs Temp 98.4 F 09/06/21 08:00 Pulse 77 09/06/21 03:35 Resp 16 09/06/21 08:00 BP 99/37 09/06/21 08:00 Pulse Ox 97 09/06/21 08:00 Intake & Output 09/05/21 09/06/21 09/06/21 18:59 06:59 18:59 Intake Total 1008 Output Total 1000 150 Balance 8 -150 Weight 88.9 kg Intake: Intake, IV Titration 100 Amount Piperacillin-Tazobactam 3 100 .375 gm In Sodium Chloride 0.9% 100 ml @ 25 mls/hr IVPB Q12H [facility] Rx# :[id number] Oral 598 Blood Product 310 Rc As-1 Unit 310 [id number] Output: Drainage 1000 Left Chest 1000 Urine 150 Other: Voiding Method Urinal Urinal Urinal # Voids 3 # Bowel Movements 1 - Labs CBC & Chem 7: 09/06/21 05:37 09/06/21 05:37 Labs: Abnormal Lab Results - Last 24 Hours (Table) 09/05/21 09/05/21 09/05/21 Range/Units 05:30 05:30 11:51 WBC (3.8-10.6) k/uL RBC (4.30-5.90) m/uL Hgb (13.0-17.5) gm/dL Hct (39.0-53.0) % RDW (11.5-15.5) % Neutrophils # (1.3-7.7) k/uL Lymphocytes # (1.0-4.8) k/uL Retic Count 6.3 H (0.5-2.0) % PT (9.0-12.0) sec INR (<1.2) D-Dimer (<0.60) mg/L FEU Sodium (137-145) mmol/L Carbon Dioxide (22-30) mmol/L BUN (9-20) mg/dL Creatinine (0.66-1.25) mg/dL POC Glucose (mg/dL) 103 H (75-99) mg/dL Calcium (8.4-10.2) mg/dL Magnesium (1.6-2.3) mg/dL Total Protein (6.3-8.2) g/dL Albumin (3.5-5.0) g/dL Procalcitonin 0.58 H (0.02-0.09) ng/mL 09/05/21 09/05/21 09/05/21 Range/Units 16:29 16:29 16:44 WBC (3.8-10.6) k/uL RBC (4.30-5.90) m/uL Hgb (13.0-17.5) gm/dL Hct (39.0-53.0) % RDW (11.5-15.5) % Neutrophils # (1.3-7.7) k/uL Lymphocytes # (1.0-4.8) k/uL Retic Count (0.5-2.0) % PT 13.7 H (9.0-12.0) sec INR 1.3 H (<1.2) D-Dimer 8.21 H (<0.60) mg/L FEU Sodium (137-145) mmol/L Carbon Dioxide (22-30) mmol/L BUN (9-20) mg/dL Creatinine (0.66-1.25) mg/dL POC Glucose (mg/dL) 117 H (75-99) mg/dL Calcium (8.4-10.2) mg/dL Magnesium (1.6-2.3) mg/dL Total Protein 4.4 L (6.3-8.2) g/dL Albumin 2.0 L (3.5-5.0) g/dL Procalcitonin (0.02-0.09) ng/mL 09/05/21 09/06/21 09/06/21 Range/Units 20:30 05:37 05:37 WBC 16.8 H (3.8-10.6) k/uL RBC 2.03 L (4.30-5.90) m/uL Hgb 6.1 L* (13.0-17.5) gm/dL Hct 18.7 L* (39.0-53.0) % RDW 15.9 H (11.5-15.5) % Neutrophils # 15.1 H (1.3-7.7) k/uL Lymphocytes # 0.4 L (1.0-4.8) k/uL Retic Count (0.5-2.0) % PT (9.0-12.0) sec INR (<1.2) D-Dimer (<0.60) mg/L FEU Sodium 136 L (137-145) mmol/L Carbon Dioxide 17 L (22-30) mmol/L BUN 111 H* (9-20) mg/dL Creatinine 5.12 H (0.66-1.25) mg/dL POC Glucose (mg/dL) 116 H (75-99) mg/dL Calcium 8.2 L (8.4-10.2) mg/dL Magnesium 2.4 H (1.6-2.3) mg/dL Total Protein (6.3-8.2) g/dL Albumin (3.5-5.0) g/dL Procalcitonin (0.02-0.09) ng/mL 09/06/21 Range/Units 05:56 WBC (3.8-10.6) k/uL RBC (4.30-5.90) m/uL Hgb (13.0-17.5) gm/dL Hct (39.0-53.0) % RDW (11.5-15.5) % Neutrophils # (1.3-7.7) k/uL Lymphocytes # (1.0-4.8) k/uL Retic Count (0.5-2.0) % PT (9.0-12.0) sec INR (<1.2) D-Dimer (<0.60) mg/L FEU Sodium (137-145) mmol/L Carbon Dioxide (22-30) mmol/L BUN (9-20) mg/dL Creatinine (0.66-1.25) mg/dL POC Glucose (mg/dL) 117 H (75-99) mg/dL Calcium (8.4-10.2) mg/dL Magnesium (1.6-2.3) mg/dL Total Protein (6.3-8.2) g/dL Albumin (3.5-5.0) g/dL Procalcitonin (0.02-0.09) ng/mL Microbiology - Last 24 Hours (Table) 09/04/21 15:03 Gram Stain - Preliminary Pleural Fluid Body Fluid Culture - Preliminary 09/04/21 15:03 Acid Fast Bacilli Smear - Final Pleural Fluid Acid Fast Bacilli Culture - Preliminary 09/01/21 12:00 Gram Stain - Final Pleural Fluid Body Fluid Culture - Final Diphtheroid species Assessment and Plan Plan: Assessment: 1. Acute kidney injury secondary to ATN secondary to cardiorenal syndrome. Creatinine 3.59 on admission - 5.1 to today. 2. Chronic kidney disease stage IV secondary to diabetic kidney disease with baseline creatinine near 2.5. 3. Acute on chronic diastolic CHF with moderate tricuspid regurgitation and pulmonary hypertension. 4. Volume overload. 5. Malignant melanoma with metastasis. 6. Hypokalemia from poor intake and diuretics. Resolved. Slightly hyperkalemic today due to bleed and acidosis. 7. Chronic kidney disease mineral bone disease maintained on calcitriol. 8. Diabetes mellitus. Hypoglycemic on admission. 9. Hypertension with chronic kidney disease. Blood pressure on the lower side. 10. Pneumonia on antibiotics. Tested negative for COVID-19. 11. Metabolic acidosis secondary to acute kidney injury. On oral bicarbonate. 12. Recurrent pleural effusions. Has a left Pleurx catheter. 13. Anemia of chronic kidney disease maintained on Aranesp. Scheduled to receive another unit of blood transfusion today. Plan: Maintain IV Lasix. Avoid nephrotoxins. Continue to monitor renal function and urine output. Due to worsening renal function and volume overload, initiate renal replacement therapy. Permacath to be placed today. Plan for first time in of hemodialysis today and second treatment tomorrow. Scheduled to receive a unit of blood today. I will also give him a dose of IV DDAVP today. Hold antihypertensives for systolic blood pressure less than 120. Outpatient dialysis to be set up by counter caser.
--- NOTE | 2021-09-06 12:08 | P.GSCN ---
<Vinita Pierce - Last Filed: 09/06/21 11:54> History of Present Illness Consult date: 09/06/21 History of present illness: CHIEF COMPLAINT: Altered mental status with hypoglycemia Reason for consult anemia HISTORY OF PRESENT ILLNESS: This is a 71-year-old male with a known history of metastatic melanoma with metastases to the lung. Patient has had recurrent right pleural effusion requiring thoracentesis during this admission. Patient does have a Pleurx catheter for his lung effusion. Patient also has developed acute kidney injury and is scheduled to start hemodialysis today. Patient's hemoglobin 9.9 on admission is down to 6.1. He did receive a unit of blood yesterday. Hemoglobin remains at 6.1. Nephrology has ordered DDAVP. Patient denies any blood in his stools or black stools. Denies any abdominal pain. Denies any nausea or vomiting. He reports that his oral intake has been decreased but that has not changed. He has a prior history of DVT and questionable PE in which she was on Eliquis. Eliquis discontinued due to the anemia. His last colonoscopy was about 3 years ago there was concern of colon cancer on the scope that was completed here. However, repeat colonoscopy at [facility] did not reveal any signs of cancer. Patient is scheduled for another unit of blood today. He is on 6 L of oxygen. Patient reports that the fluid that was removed from the Pleurx catheter yesterday was bloody. Surgical service was confluent in regards to patient's anemia and need for endoscopy workup. PAST MEDICAL HISTORY: See list. PAST SURGICAL HISTORY: See list. MEDICATIONS: See list. ALLERGIES: See list. SOCIAL HISTORY: No illicit drug use. REVIEW OF SYSTEMS: CONSTITUTIONAL: Denies fever or chills. HEENT: Denies blurred vision, vision changes, or eye pain. Denies hemoptysis CARDIOVASCULAR: Denies chest pain or pressure. RESPIRATORY: No shortness of breath. GASTROINTESTINAL: See HPI for pertinent findings HEMATOLOGIC: Denies bleeding disorders. GENITOURINARY: Denies any blood in urine or increased urinary frequency. SKIN: Denies pruitis. Denies rash. PHYSICAL EXAM: VITAL SIGNS: Reviewed GENERAL: Well-developed in no acute distress. HEENT: No sclera icterus. Extraocular movements grossly intact. Moist buccal mucosa. Head is atraumatic, normocephalic. No nasal drainage. ABDOMEN: Soft. Nondistended. Nontender NEUROLOGIC: Alert and oriented. Cranial nerves II through XII grossly intact. LABORATORY DATA: WBC is 16.8 hemoglobin 6.1 platelets 211 INR 1.3 Sodium 136 potassium 5.1 BUN of 111 creatinine 5.12 IMAGING: Chest x-ray bilateral airspace disease and left-sided pleural effusion stable ASSESSMENT: 1. Anemia 2. Metastatic melanoma with metastases to the lung 3. Right pleural effusion requiring thoracentesis 4. Left pleural effusion with Pleurx catheter 5. Acute kidney injury starting hemodialysis 6. History of DVT and possible PE 7. Paroxysmal atrial fibrillation PLAN: -Further recommendations forthcoming per surgeon -Continue supportive care -Eliquis currently on hold -Continue supportive care -Agree with blood transfusion Thank you for this consultation Physician Gyroscopic Engineering Technician note has been reviewed by physician. Signing provider agrees with the documented findings, assessment, and plan of care. Past Medical History Past Medical History: Coronary Artery Disease (CAD), Cancer (Metastatic malignant melanoma of the back post resection, post lymph node dissection, left- sided pleural effusion, chronic, only metastases from malignant melanoma), D iabetes Mellitus, Eye Disorder, GERD/Reflux, GI Bleed, Hyperlipidemia, Hypertension, Myocardial Infarction (MO), Osteoarthritis (OA), Renal Disease Additional Past Medical History / Comment(s): glaucoma in the left eye, stage III chronic kidney disease, Melanoma on back status post resection, covid-19 in September 2020 Last Myocardial Infarction Date:: 2015 History of Any Multi-Drug Resistant Organisms: None Reported Past Surgical History: Adenoidectomy, Appendectomy, Coronary Bypass/CABG, Heart Catheterization, Heart Catheterization With Stent, Orthopedic Surgery, Tonsillectomy Additional Past Surgical History / Comment(s): tumor from L shoulder, bilateral carpel tunnel, colonoscopy, R knee arthroscopy;CA removed from R ear back & abdomen; cataract L eye, liver biopsy on 08/14/18 Past Anesthesia/Blood Transfusion Reactions: No Reported Reaction Date of Last Stent Placement:: 12/07/15 Past Psychological History: No Psychological Hx Reported Additional Psychological History / Comment(s): Pt resides with his spouse. He works at [employer]. He is independent. Smoking Status: Never smoker Past Alcohol Use History: Rare Past Drug Use History: None Reported - Past Family History Father Family Medical History: No Reported History Additional Family Medical History / Comment(s): Father was a heavy smoker. He was at age 70. Mother Family Medical History: No Reported History Additional Family Medical History / Comment(s): Mother is alive and is 92 yrs old. Medications and Allergies Home Medications Medication Instructions Recorded Confirmed Type Atorvastatin [Lipitor] 80 mg PO DAILY 04/30/17 08/26/21 History Aspirin EC [Ecotrin Low Dose] 81 mg PO DAILY 10/18/20 08/26/21 History Ergocalciferol [Vitamin D2 (1250 1,250 mcg PO HERBERT 03/16/21 08/26/21 History Mcg = 76303 Iu)] Furosemide [Lasix] 40 mg PO Q48H 08/26/21 08/26/21 History Insulin Detemir [Levemir Flextouch 35 units SQ HS 08/26/21 08/26/21 History Pen] amLODIPine [Norvasc] 10 mg PO DAILY 08/26/21 08/26/21 History calcitrioL [Calcitriol] 0.25 mcg PO HERBERT 08/26/21 08/26/21 History carvediloL [Coreg*] 12.5 mg PO BID 08/26/21 08/26/21 History hydrALAZINE HCL [Apresoline] 25 mg PO BID 08/26/21 08/26/21 History Apixaban [Eliquis Starter Pack 5 - 10 mg PO DIRECTED 30 Days 08/30/21 Rx (for VTE)] #1 each Allergies Allergy/AdvReac Type Severity Reaction Status Date / Time No Known Allergies Allergy Verified 08/26/21 14:19 Surgical - Exam Vital Signs Pulse Resp BP Pulse Ox 68 18 150/68 93 L 08/26/21 10:53 08/26/21 10:53 08/26/21 10:53 08/26/21 10:53 Results - Labs 09/06/21 05:37 09/06/21 05:37 Abnormal Lab Results - Last 24 Hours (Table) 09/05/21 09/05/21 09/05/21 Range/Units 05:30 05:30 11:51 WBC (3.8-10.6) k/uL RBC (4.30-5.90) m/uL Hgb (13.0-17.5) gm/dL Hct (39.0-53.0) % RDW (11.5-15.5) % Neutrophils # (1.3-7.7) k/uL Lymphocytes # (1.0-4.8) k/uL Retic Count 6.3 H (0.5-2.0) % PT (9.0-12.0) sec INR (<1.2) D-Dimer (<0.60) mg/L FEU Sodium (137-145) mmol/L Carbon Dioxide (22-30) mmol/L BUN (9-20) mg/dL Creatinine (0.66-1.25) mg/dL POC Glucose (mg/dL) 103 H (75-99) mg/dL Calcium (8.4-10.2) mg/dL Magnesium (1.6-2.3) mg/dL Total Protein (6.3-8.2) g/dL Albumin (3.5-5.0) g/dL Procalcitonin 0.58 H (0.02-0.09) ng/mL 09/05/21 09/05/21 09/05/21 Range/Units 16:29 16:29 16:44 WBC (3.8-10.6) k/uL RBC (4.30-5.90) m/uL Hgb (13.0-17.5) gm/dL Hct (39.0-53.0) % RDW (11.5-15.5) % Neutrophils # (1.3-7.7) k/uL Lymphocytes # (1.0-4.8) k/uL Retic Count (0.5-2.0) % PT 13.7 H (9.0-12.0) sec INR 1.3 H (<1.2) D-Dimer 8.21 H (<0.60) mg/L FEU Sodium (137-145) mmol/L Carbon Dioxide (22-30) mmol/L BUN (9-20) mg/dL Creatinine (0.66-1.25) mg/dL POC Glucose (mg/dL) 117 H (75-99) mg/dL Calcium (8.4-10.2) mg/dL Magnesium (1.6-2.3) mg/dL Total Protein 4.4 L (6.3-8.2) g/dL Albumin 2.0 L (3.5-5.0) g/dL Procalcitonin (0.02-0.09) ng/mL 09/05/21 09/06/21 09/06/21 Range/Units 20:30 05:37 05:37 WBC 16.8 H (3.8-10.6) k/uL RBC 2.03 L (4.30-5.90) m/uL Hgb 6.1 L* (13.0-17.5) gm/dL Hct 18.7 L* (39.0-53.0) % RDW 15.9 H (11.5-15.5) % Neutrophils # 15.1 H (1.3-7.7) k/uL Lymphocytes # 0.4 L (1.0-4.8) k/uL Retic Count (0.5-2.0) % PT (9.0-12.0) sec INR (<1.2) D-Dimer (<0.60) mg/L FEU Sodium 136 L (137-145) mmol/L Carbon Dioxide 17 L (22-30) mmol/L BUN 111 H* (9-20) mg/dL Creatinine 5.12 H (0.66-1.25) mg/dL POC Glucose (mg/dL) 116 H (75-99) mg/dL Calcium 8.2 L (8.4-10.2) mg/dL Magnesium 2.4 H (1.6-2.3) mg/dL Total Protein (6.3-8.2) g/dL Albumin (3.5-5.0) g/dL Procalcitonin (0.02-0.09) ng/mL 09/06/21 Range/Units 05:56 WBC (3.8-10.6) k/uL RBC (4.30-5.90) m/uL Hgb (13.0-17.5) gm/dL Hct (39.0-53.0) % RDW (11.5-15.5) % Neutrophils # (1.3-7.7) k/uL Lymphocytes # (1.0-4.8) k/uL Retic Count (0.5-2.0) % PT (9.0-12.0) sec INR (<1.2) D-Dimer (<0.60) mg/L FEU Sodium (137-145) mmol/L Carbon Dioxide (22-30) mmol/L BUN (9-20) mg/dL Creatinine (0.66-1.25) mg/dL POC Glucose (mg/dL) 117 H (75-99) mg/dL Calcium (8.4-10.2) mg/dL Magnesium (1.6-2.3) mg/dL Total Protein (6.3-8.2) g/dL Albumin (3.5-5.0) g/dL Procalcitonin (0.02-0.09) ng/mL Microbiology - Last 24 Hours (Table) 09/04/21 15:03 Gram Stain - Preliminary Pleural Fluid Body Fluid Culture - Preliminary 09/04/21 15:03 Acid Fast Bacilli Smear - Final Pleural Fluid Acid Fast Bacilli Culture - Preliminary 09/01/21 12:00 Gram Stain - Final Pleural Fluid Body Fluid Culture - Final Diphtheroid species Diabetes panel 09/05/21 09/05/21 09/06/21 Range/Units 16:29 16:29 05:37 Sodium 136 L (137-145) mmol/L Potassium 5.0 5.1 (3.5-5.1) mmol/L Chloride 107 (98-107) mmol/L Carbon Dioxide 17 L (22-30) mmol/L BUN 111 H* (9-20) mg/dL Creatinine 5.12 H (0.66-1.25) mg/dL Glucose 99 (74-99) mg/dL Calcium 8.2 L (8.4-10.2) mg/dL AST 22 (17-59) U/L ALT 18 (4-49) U/L Alkaline Phosphatase 56 (38-126) U/L Total Protein 4.4 L (6.3-8.2) g/dL Albumin 2.0 L (3.5-5.0) g/dL Calcium panel 09/05/21 09/06/21 Range/Units 16:29 05:37 Calcium 8.2 L (8.4-10.2) mg/dL Albumin 2.0 L (3.5-5.0) g/dL Pituitary panel 09/05/21 09/06/21 Range/Units 16:29 05:37 Sodium 136 L (137-145) mmol/L Potassium 5.0 5.1 (3.5-5.1) mmol/L Chloride 107 (98-107) mmol/L Carbon Dioxide 17 L (22-30) mmol/L BUN 111 H* (9-20) mg/dL Creatinine 5.12 H (0.66-1.25) mg/dL Glucose 99 (74-99) mg/dL Calcium 8.2 L (8.4-10.2) mg/dL Adrenal panel 09/05/21 09/05/21 09/06/21 Range/Units 16:29 16:29 05:37 Sodium 136 L (137-145) mmol/L Potassium 5.0 5.1 (3.5-5.1) mmol/L Chloride 107 (98-107) mmol/L Carbon Dioxide 17 L (22-30) mmol/L BUN 111 H* (9-20) mg/dL Creatinine 5.12 H (0.66-1.25) mg/dL Glucose 99 (74-99) mg/dL Calcium 8.2 L (8.4-10.2) mg/dL Total Bilirubin 0.4 (0.2-1.3) mg/dL AST 22 (17-59) U/L ALT 18 (4-49) U/L Alkaline Phosphatase 56 (38-126) U/L Total Protein 4.4 L (6.3-8.2) g/dL Albumin 2.0 L (3.5-5.0) g/dL <Charles Peck - Last Filed: 09/06/21 12:15> History of Present Illness History of present illness: As above. Patient with hemoglobin dropping during this admission. Requires anticoagulation for recent pulmonary embolus and. Patient has had epistaxis and some blood from his Pleurx catheter. Patient with previous colonoscopy at [facility] 2-3 years ago. Spoke with oncology. If anticoagulation needs to be held then they will advise IVC filter. Will discuss with patient and family regarding possible EGD and colonoscopy this hospitalization. Surgical - Exam Vital Signs Pulse Resp BP Pulse Ox 68 18 150/68 93 L 08/26/21 10:53 08/26/21 10:53 08/26/21 10:53 08/26/21 10:53 Results - Labs 09/06/21 05:37 09/06/21 05:37 Abnormal Lab Results - Last 24 Hours (Table) 12/04/1909/05/21 09/05/21 Range/Units 05:30 05:30 16:29 WBC (3.8-10.6) k/uL RBC (4.30-5.90) m/uL Hgb (13.0-17.5) gm/dL Hct (39.0-53.0) % RDW (11.5-15.5) % Neutrophils # (1.3-7.7) k/uL Lymphocytes # (1.0-4.8) k/uL Retic Count 6.3 H (0.5-2.0) % PT 13.7 H (9.0-12.0) sec INR 1.3 H (<1.2) D-Dimer 8.21 H (<0.60) mg/L FEU Sodium (137-145) mmol/L Carbon Dioxide (22-30) mmol/L BUN (9-20) mg/dL Creatinine (0.66-1.25) mg/dL POC Glucose (mg/dL) (75-99) mg/dL Calcium (8.4-10.2) mg/dL Magnesium (1.6-2.3) mg/dL Total Protein (6.3-8.2) g/dL Albumin (3.5-5.0) g/dL Procalcitonin 0.58 H (0.02-0.09) ng/mL 09/05/21 09/05/21 09/05/21 Range/Units 16:29 16:44 20:30 WBC (3.8-10.6) k/uL RBC (4.30-5.90) m/uL Hgb (13.0-17.5) gm/dL Hct (39.0-53.0) % RDW (11.5-15.5) % Neutrophils # (1.3-7.7) k/uL Lymphocytes # (1.0-4.8) k/uL Retic Count (0.5-2.0) % PT (9.0-12.0) sec INR (<1.2) D-Dimer (<0.60) mg/L FEU Sodium (137-145) mmol/L Carbon Dioxide (22-30) mmol/L BUN (9-20) mg/dL Creatinine (0.66-1.25) mg/dL POC Glucose (mg/dL) 117 H 116 H (75-99) mg/dL Calcium (8.4-10.2) mg/dL Magnesium (1.6-2.3) mg/dL Total Protein 4.4 L (6.3-8.2) g/dL Albumin 2.0 L (3.5-5.0) g/dL Procalcitonin (0.02-0.09) ng/mL 09/06/21 09/06/21 09/06/21 Range/Units 05:37 05:37 05:56 WBC 16.8 H (3.8-10.6) k/uL RBC 2.03 L (4.30-5.90) m/uL Hgb 6.1 L* (13.0-17.5) gm/dL Hct 18.7 L* (39.0-53.0) % RDW 15.9 H (11.5-15.5) % Neutrophils # 15.1 H (1.3-7.7) k/uL Lymphocytes # 0.4 L (1.0-4.8) k/uL Retic Count (0.5-2.0) % PT (9.0-12.0) sec INR (<1.2) D-Dimer (<0.60) mg/L FEU Sodium 136 L (137-145) mmol/L Carbon Dioxide 17 L (22-30) mmol/L BUN 111 H* (9-20) mg/dL Creatinine 5.12 H (0.66-1.25) mg/dL POC Glucose (mg/dL) 117 H (75-99) mg/dL Calcium 8.2 L (8.4-10.2) mg/dL Magnesium 2.4 H (1.6-2.3) mg/dL Total Protein (6.3-8.2) g/dL Albumin (3.5-5.0) g/dL Procalcitonin (0.02-0.09) ng/mL 09/06/21 Range/Units 12:07 WBC (3.8-10.6) k/uL RBC (4.30-5.90) m/uL Hgb (13.0-17.5) gm/dL Hct (39.0-53.0) % RDW (11.5-15.5) % Neutrophils # (1.3-7.7) k/uL Lymphocytes # (1.0-4.8) k/uL Retic Count (0.5-2.0) % PT (9.0-12.0) sec INR (<1.2) D-Dimer (<0.60) mg/L FEU Sodium (137-145) mmol/L Carbon Dioxide (22-30) mmol/L BUN (9-20) mg/dL Creatinine (0.66-1.25) mg/dL POC Glucose (mg/dL) 107 H (75-99) mg/dL Calcium (8.4-10.2) mg/dL Magnesium (1.6-2.3) mg/dL Total Protein (6.3-8.2) g/dL Albumin (3.5-5.0) g/dL Procalcitonin (0.02-0.09) ng/mL Microbiology - Last 24 Hours (Table) 09/04/21 15:03 Gram Stain - Preliminary Pleural Fluid Body Fluid Culture - Preliminary 09/04/21 15:03 Acid Fast Bacilli Smear - Final Pleural Fluid Acid Fast Bacilli Culture - Preliminary 09/01/21 12:00 Gram Stain - Final Pleural Fluid Body Fluid Culture - Final Diphtheroid species Diabetes panel 09/05/21 09/05/21 09/06/21 Range/Units 16:29 16:29 05:37 Sodium 136 L (137-145) mmol/L Potassium 5.0 5.1 (3.5-5.1) mmol/L Chloride 107 (98-107) mmol/L Carbon Dioxide 17 L (22-30) mmol/L BUN 111 H* (9-20) mg/dL Creatinine 5.12 H (0.66-1.25) mg/dL Glucose 99 (74-99) mg/dL Calcium 8.2 L (8.4-10.2) mg/dL AST 22 (17-59) U/L ALT 18 (4-49) U/L Alkaline Phosphatase 56 (38-126) U/L Total Protein 4.4 L (6.3-8.2) g/dL Albumin 2.0 L (3.5-5.0) g/dL Calcium panel 09/05/21 09/06/21 Range/Units 16:29 05:37 Calcium 8.2 L (8.4-10.2) mg/dL Albumin 2.0 L (3.5-5.0) g/dL Pituitary panel 09/05/21 09/06/21 Range/Units 16:29 05:37 Sodium 136 L (137-145) mmol/L Potassium 5.0 5.1 (3.5-5.1) mmol/L Chloride 107 (98-107) mmol/L Carbon Dioxide 17 L (22-30) mmol/L BUN 111 H* (9-20) mg/dL Creatinine 5.12 H (0.66-1.25) mg/dL Glucose 99 (74-99) mg/dL Calcium 8.2 L (8.4-10.2) mg/dL Adrenal panel 09/05/21 09/05/21 09/06/21 Range/Units 16:29 16:29 05:37 Sodium 136 L (137-145) mmol/L Potassium 5.0 5.1 (3.5-5.1) mmol/L Chloride 107 (98-107) mmol/L Carbon Dioxide 17 L (22-30) mmol/L BUN 111 H* (9-20) mg/dL Creatinine 5.12 H (0.66-1.25) mg/dL Glucose 99 (74-99) mg/dL Calcium 8.2 L (8.4-10.2) mg/dL Total Bilirubin 0.4 (0.2-1.3) mg/dL AST 22 (17-59) U/L ALT 18 (4-49) U/L Alkaline Phosphatase 56 (38-126) U/L Total Protein 4.4 L (6.3-8.2) g/dL Albumin 2.0 L (3.5-5.0) g/dL
[2021-09-06 12:09] LABS: Glucose,Whole Blood 107 mg/dL (75-99)
[2021-09-06 12:36] LABS: Hepatitis B Surface AB- Quant 3.5 mIU/mL; Hepatitis B Surface Antibody Nonreactive (Nonreactive); Hepatitis B Surface Antigen Nonreactive (Nonreactive)
[2021-09-06] MEDS: PIPERACILLIN-TAZOBACTAM 3.375 GM in SODIUM CHLORIDE 0.9% 100 ML IVPB SCH ×2 (12:42→23:48)
--- NOTE | 2021-09-06 13:35 | P.PN ---
Subjective Progress Note Date: 09/06/21 Principal diagnosis: Hemoglobin continues to slowly trend down since anticoagulation Hemoglobin 6.1 again today, despite transfusion. DDAVP given. Objective - Vital Signs Vital signs: Vital Signs Temp 98.4 F 09/06/21 08:00 Pulse 77 09/06/21 03:35 Resp 16 09/06/21 08:00 BP 99/37 09/06/21 08:00 Pulse Ox 97 09/06/21 08:00 Intake & Output 09/05/21 09/06/21 09/06/21 18:59 06:59 18:59 Intake Total 1008 Output Total 1000 150 Balance 8 -150 Weight 88.9 kg Intake: Intake, IV Titration 100 Amount Piperacillin-Tazobactam 3 100 .375 gm In Sodium Chloride 0.9% 100 ml @ 25 mls/hr IVPB Q12H [facility] Rx# :[id number] Oral 598 Blood Product 310 Rc As-1 Unit 310 [id number] Output: Drainage 1000 Left Chest 1000 Urine 150 Other: Voiding Method Urinal Urinal Urinal # Voids 3 # Bowel Movements 1 - Exam Alert nad head-supple trachea midline lungs diminished, pleurex abd soft Ext, mild - Labs CBC & Chem 7: 09/06/21 05:37 09/06/21 05:37 Labs: Abnormal Lab Results - Last 24 Hours (Table) 09/05/21 09/05/21 09/05/21 Range/Units 05:30 16:29 16:29 WBC (3.8-10.6) k/uL RBC (4.30-5.90) m/uL Hgb (13.0-17.5) gm/dL Hct (39.0-53.0) % RDW (11.5-15.5) % Neutrophils # (1.3-7.7) k/uL Lymphocytes # (1.0-4.8) k/uL PT 13.7 H (9.0-12.0) sec INR 1.3 H (<1.2) D-Dimer 8.21 H (<0.60) mg/L FEU Sodium (137-145) mmol/L Carbon Dioxide (22-30) mmol/L BUN (9-20) mg/dL Creatinine (0.66-1.25) mg/dL POC Glucose (mg/dL) (75-99) mg/dL Calcium (8.4-10.2) mg/dL Magnesium (1.6-2.3) mg/dL Total Protein 4.4 L (6.3-8.2) g/dL Albumin 2.0 L (3.5-5.0) g/dL Procalcitonin 0.58 H (0.02-0.09) ng/mL 09/05/21 09/05/21 09/06/21 Range/Units 16:44 20:30 05:37 WBC (3.8-10.6) k/uL RBC (4.30-5.90) m/uL Hgb (13.0-17.5) gm/dL Hct (39.0-53.0) % RDW (11.5-15.5) % Neutrophils # (1.3-7.7) k/uL Lymphocytes # (1.0-4.8) k/uL PT (9.0-12.0) sec INR (<1.2) D-Dimer (<0.60) mg/L FEU Sodium 136 L (137-145) mmol/L Carbon Dioxide 17 L (22-30) mmol/L BUN 111 H* (9-20) mg/dL Creatinine 5.12 H (0.66-1.25) mg/dL POC Glucose (mg/dL) 117 H 116 H (75-99) mg/dL Calcium 8.2 L (8.4-10.2) mg/dL Magnesium 2.4 H (1.6-2.3) mg/dL Total Protein (6.3-8.2) g/dL Albumin (3.5-5.0) g/dL Procalcitonin (0.02-0.09) ng/mL 09/06/21 09/06/21 09/06/21 Range/Units 05:37 05:56 12:07 WBC 16.8 H (3.8-10.6) k/uL RBC 2.03 L (4.30-5.90) m/uL Hgb 6.1 L* (13.0-17.5) gm/dL Hct 18.7 L* (39.0-53.0) % RDW 15.9 H (11.5-15.5) % Neutrophils # 15.1 H (1.3-7.7) k/uL Lymphocytes # 0.4 L (1.0-4.8) k/uL PT (9.0-12.0) sec INR (<1.2) D-Dimer (<0.60) mg/L FEU Sodium (137-145) mmol/L Carbon Dioxide (22-30) mmol/L BUN (9-20) mg/dL Creatinine (0.66-1.25) mg/dL POC Glucose (mg/dL) 117 H 107 H (75-99) mg/dL Calcium (8.4-10.2) mg/dL Magnesium (1.6-2.3) mg/dL Total Protein (6.3-8.2) g/dL Albumin (3.5-5.0) g/dL Procalcitonin (0.02-0.09) ng/mL Microbiology - Last 24 Hours (Table) 09/04/21 15:03 Gram Stain - Preliminary Pleural Fluid Body Fluid Culture - Preliminary 09/04/21 15:03 Acid Fast Bacilli Smear - Final Pleural Fluid Acid Fast Bacilli Culture - Preliminary 09/01/21 12:00 Gram Stain - Final Pleural Fluid Body Fluid Culture - Final Diphtheroid species Assessment and Plan (1) Metastatic melanoma Current Visit: Yes Status: Acute Code(s): C79.9 - SECONDARY MALIGNANT NEOPLASM OF UNSPECIFIED SITE SNOMED Code(s): 681772172 (2) Acute kidney injury Current Visit: No Status: Acute Code(s): N17.9 - ACUTE KIDNEY FAILURE, UNSPECIFIED SNOMED Code(s): 37455546 Plan: Will recheck Hemoglobin today and monitor CBC He will unfortunetly need lifelong anticoagulation given his known underlying malignancy, this has been discussed with patient and primary team in detail With decreasing hemoglobin check anemia work-up - Ferritin increased no rec ommendation for Iron at htis time (08/30/21) Further Drop in hemoglobin will check hemolysis panel, thyroid function, and transfuse PRBC DDAVP given this am for further drop in hemglobin. Renal function continues to persist subadequate He will return to [facility] for continued management of metastatic Melanoma. Continuation Keytruda DIC and Hemolysis work up ordered for today Transfusion PRBC DDAVP Physician attest: I have completed the full history and physical and agree with above dictation, dictated as a scribe.
[2021-09-06] MEDS ORDERED: LIDOCAINE 1% INJ 10MG/ML (20 ML MDV) SQ ONE ×2 (13:57)
[2021-09-06] MEDS ORDERED: MIDAZOLAM 2 MG/2 ML VIAL IV ONE (14:00)
[2021-09-06] MEDS ORDERED: IV FLUID CONTINUATION 1,000 ML IV ONE (14:15)
--- NOTE | 2021-09-06 14:17 | P.PN ---
Subjective Progress Note Date: 09/06/21 HISTORY OF PRESENT ILLNESS: This is a 71-year-old male who sees Dr. Xiong in the office. Patient is admitted to the hospital secondary to CHF, shortness of breath, and atrial fibrillation. Patient had an echocardiogram completed in July 2021 revealing ejection fraction 55-60%. Repeat echocardiogram is pending. Patient currently denies chest pain or pressure. He denies shortness of breath. Telemetry reveals sinus mechanism. Patient is not on anticoagulation secondary to a history of GI bleed per internal medicine's notes. The patient received a one-time dose of Lasix per nephrology. Creatinine today 3.86. 08/29/2021 Patient examined this morning at the bedside. He denies chest pain or pressure. Denies shortness of breath. He remains on 6L NC with oxygen saturations greater than 92%. Telemetry reveals sinus mechanism. Creatinine 4.04. Nephrology following. Repeat echo revealed EF 55-60%. 08/30/2021 Patient examined this morning at the bedside. He denies chest pain or pressure. Denies shortness of breath. He remains on 6L NC with oxygen saturations greater than 92%. Blood pressure 144/65. Patient underwent right lower extremity Doppler revealing lack of compression and thrombus within the left popliteal vein compatible with DVT although acute DVT cannot be excluded as does appear to be improved from prior exam of 2018 suggesting chronic component. VQ scan performed revealing high probability for pulmonary embolism. Patient was started on IV heparin per internal medicine 08/31/2021 Patient examined this morning. He is sitting up in the chair. He denies chest pain or pressure. Denies shortness of breath. He remains on IV heparin. Plan is to transition to Eliquis at discharge. Vital signs are stable. Creatinine 3.99. BUN 99. 09/01/2021 Patient examined this morning at the bedside. Patient denies chest pain or pressure. He denies shortness of breath. He has been transitioned to Eliquis. Telemetry reveals sinus mechanism. Blood pressure 167/79. BUN 101. Creatinine 3.88. 09/06/2021 Patient examined this morning at the bedside. Patient denies chest pain or pressure. Denies SOB. He his s/p right thoracentesis with removal of 1750 mL. He also had 1 L of fluid drained yesterday from his left-sided Pleurx catheter. Hemoglobin today 6.1. Anticoagulation remains on hold. Creatinine remains elevated at 5.12. PHYSICAL EXAM: VITAL SIGNS: Reviewed. GENERAL: Well-developed in no acute distress. NECK: Supple. No JVD or thyromegaly LUNGS: Respirations even and unlabored. Lungs diminished to auscultation angelo aterally. HEART: Regular rate and rhythm. S1 and S2 heard. EXTREMITIES: Normal range of motion. No clubbing or cyanosis. Peripheral pulses intact. Trace lower extremity edema ASSESSMENT: Dyspnea Pneumonia Pulmonary embolism Acute exacerbation of chronic diastolic congestive heart failure, ejection fraction 55-60% New-onset paroxysmal atrial fibrillation, currently maintaining sinus mechanism History of GI bleed Metastatic melanoma with metastasis to the lung and lymph nodes Recurrent pleural effusion with pleural cath Diabetes Hypertension Hyperlipidemia History of Covid Coronary artery disease with previous CABG and PCI Acute on chronic kidney disease History of DVT PLAN: Continue current cardiac medications Monitor hemoglobin. Eliquis on hold. Monitor kidney function. Nephrology following. Patient to receive RBC transfusion today. Plan to begin hemodialysis per nephrology. Further recommendations pending patient course Nurse practitioner note has been reviewed by physician. Signing provider agrees with the documented findings, assessment, and plan of care. Objective - Vital Signs Vital signs: Vital Signs Temp 98.2 F 09/06/21 13:46 Pulse 70 09/06/21 13:46 Resp 16 09/06/21 13:46 BP 113/53 09/06/21 13:46 Pulse Ox 100 09/06/21 12:00 Intake & Output 09/05/21 09/06/21 09/06/21 18:59 06:59 18:59 Intake Total 1008 0 Output Total 1000 150 Balance 8 -150 0 Weight 88.9 kg Intake: Intake, IV Titration 100 Amount Piperacillin-Tazobactam 3 100 .375 gm In Sodium Chloride 0.9% 100 ml @ 25 mls/hr IVPB Q12H [facility] Rx# :[id number] Oral 598 Blood Product 310 0 Rc As-1 Unit 0 [id number] Rc As-1 Unit 310 [id number] Output: Drainage 1000 Left Chest 1000 Urine 150 Other: Voiding Method Urinal Urinal Urinal # Voids 3 # Bowel Movements 1 - Labs CBC & Chem 7: 09/06/21 05:37 09/06/21 05:37 Labs: Abnormal Lab Results - Last 24 Hours (Table) 09/02/21 09/05/21 09/05/21 Range/Units 11:45 05:30 16:29 WBC (3.8-10.6) k/uL RBC (4.30-5.90) m/uL Hgb (13.0-17.5) gm/dL Hct (39.0-53.0) % RDW (11.5-15.5) % Neutrophils # (1.3-7.7) k/uL Lymphocytes # (1.0-4.8) k/uL PT 13.7 H (9.0-12.0) sec INR 1.3 H (<1.2) D-Dimer 8.21 H (<0.60) mg/L FEU Sodium (137-145) mmol/L Carbon Dioxide (22-30) mmol/L BUN (9-20) mg/dL Creatinine (0.66-1.25) mg/dL POC Glucose (mg/dL) (75-99) mg/dL Calcium (8.4-10.2) mg/dL Magnesium (1.6-2.3) mg/dL Total Protein (6.3-8.2) g/dL Albumin (3.5-5.0) g/dL Procalcitonin 0.58 H (0.02-0.09) ng/mL Crossmatch See Detail 09/05/21 09/05/21 09/05/21 Range/Units 16:29 16:44 20:30 WBC (3.8-10.6) k/uL RBC (4.30-5.90) m/uL Hgb (13.0-17.5) gm/dL Hct (39.0-53.0) % RDW (11.5-15.5) % Neutrophils # (1.3-7.7) k/uL Lymphocytes # (1.0-4.8) k/uL PT (9.0-12.0) sec INR (<1.2) D-Dimer (<0.60) mg/L FEU Sodium (137-145) mmol/L Carbon Dioxide (22-30) mmol/L BUN (9-20) mg/dL Creatinine (0.66-1.25) mg/dL POC Glucose (mg/dL) 117 H 116 H (75-99) mg/dL Calcium (8.4-10.2) mg/dL Magnesium (1.6-2.3) mg/dL Total Protein 4.4 L (6.3-8.2) g/dL Albumin 2.0 L (3.5-5.0) g/dL Procalcitonin (0.02-0.09) ng/mL Crossmatch 09/06/21 09/06/21 09/06/21 Range/Units 05:37 05:37 05:56 WBC 16.8 H (3.8-10.6) k/uL RBC 2.03 L (4.30-5.90) m/uL Hgb 6.1 L* (13.0-17.5) gm/dL Hct 18.7 L* (39.0-53.0) % RDW 15.9 H (11.5-15.5) % Neutrophils # 15.1 H (1.3-7.7) k/uL Lymphocytes # 0.4 L (1.0-4.8) k/uL PT (9.0-12.0) sec INR (<1.2) D-Dimer (<0.60) mg/L FEU Sodium 136 L (137-145) mmol/L Carbon Dioxide 17 L (22-30) mmol/L BUN 111 H* (9-20) mg/dL Creatinine 5.12 H (0.66-1.25) mg/dL POC Glucose (mg/dL) 117 H (75-99) mg/dL Calcium 8.2 L (8.4-10.2) mg/dL Magnesium 2.4 H (1.6-2.3) mg/dL Total Protein (6.3-8.2) g/dL Albumin (3.5-5.0) g/dL Procalcitonin (0.02-0.09) ng/mL Crossmatch 09/06/21 09/06/21 Range/Units 09:37 12:07 WBC (3.8-10.6) k/uL RBC (4.30-5.90) m/uL Hgb (13.0-17.5) gm/dL Hct (39.0-53.0) % RDW (11.5-15.5) % Neutrophils # (1.3-7.7) k/uL Lymphocytes # (1.0-4.8) k/uL PT (9.0-12.0) sec INR (<1.2) D-Dimer (<0.60) mg/L FEU Sodium (137-145) mmol/L Carbon Dioxide (22-30) mmol/L BUN (9-20) mg/dL Creatinine (0.66-1.25) mg/dL POC Glucose (mg/dL) 107 H (75-99) mg/dL Calcium (8.4-10.2) mg/dL Magnesium (1.6-2.3) mg/dL Total Protein (6.3-8.2) g/dL Albumin (3.5-5.0) g/dL Procalcitonin (0.02-0.09) ng/mL Crossmatch See Detail Microbiology - Last 24 Hours (Table) 09/04/21 15:03 Gram Stain - Preliminary Pleural Fluid Body Fluid Culture - Preliminary 09/04/21 15:03 Acid Fast Bacilli Smear - Final Pleural Fluid Acid Fast Bacilli Culture - Preliminary 09/01/21 12:00 Gram Stain - Final Pleural Fluid Body Fluid Culture - Final Diphtheroid species
[2021-09-06] MEDS ORDERED: HEPARIN SODIUM 1,000 UN/ML (10ML VL) ONE (14:19)
--- NOTE | 2021-09-06 14:58 | OP ---
OPERATIVE REPORT PREOPERATIVE DIAGNOSIS: Acute on chronic renal failure. POSTOPERATIVE DIAGNOSIS: Acute on chronic renal failure. PROCEDURE PERFORMED: Ultrasound-guided 20 cm dialysis catheter placed, right jugular approach. PROCEDURE DESCRIPTION: The patient was brought to the cath lab tech. Right side of the neck and chest was prepped and draped in sterile manner and 1% lidocaine was infiltrated. Ultrasound-guided micropuncture was introduced into fat and jugular vein. Micropuncture guide was passed. A 4-Nepali dilator was advanced on top of the guidewire. A tunnel was created. Through the tunnel we brought a 23 cm dialysis catheter. We passed a regular guidewire which was parked in the inferior vena cava. Dilator was advanced and sheath was advanced on top of the guidewire. Through the sheath we introduced a 23 cm dialysis catheter. Tip of the catheter was in the superior vena cava junction sheath was removed, incision closed with Vicryl and nylon. Patient tolerated the procedure well. MMODL / IJN: [id number] /
--- NOTE | 2021-09-06 15:11 | P.PN ---
Subjective Progress Note Date: 09/06/21 History of present illness This is a 71-year-old gentleman patient of Dr. Wyatt Pereira. He has underlying history of diabetes mellitus type 2, CAD with prior CABG, CK D stage III, hypertension, history of melanoma was in remission until March when patient was noted to have metastatic melanoma with metastases to the lung with enlarged lymph nodes currently on immunotherapy. Patient had recent covid infection in September, with acute kidney injury secondary to covid infection September 2020 and follow Ernie since then. Patient was again admitted in November 09 for 2 days for acute diastolic congestive heart failure secondary to withdrawal off diuretics due to worsening kidney function. He was seen in the ER in March 20 for shortness of breath secondary to metastatic melanoma to his lungs with bilateral pleural effusions. Patient has been getting frequent thoracentesis an d underwent pigtail catheter placement in the left chest in April. He was initially getting fluid removed up to 1 L every day but currently patient is getting fluid removed up to 550 mL once a week, last one 2 days ago. Patient has noticed poor appetite and increased shortness of breath for the past 1 week. He had his Covid booster 6 days ago following which he went to [facility] [place] to have a brain MRI and CT. He received his immunotherapy 3 days ago. He has not recovered since then. His noticed poor appetite increased weakness associated with cough and shortness of breath. Patient was found to have low blood sugar in the low 30s which came back to normal. EKG demonstrated atrial fibrillation In the ER patient is noted to be hypoxic and was placed on 5 L of high flow still saturating at 89%. Otherwise patient is afebrile pulse 66 respiratory rate 18 blood pressure 127/58. He had a leukocytosis of 11, hemoglobin 9.9 platelet 225, BUN 109 creatinine 3.59. Sodium 139 potassium 3.4 chloride 110 [place] 18 [place] [id number] Chest x-ray on 08/26 suggests cardiomegaly with small left pleural effusion R [id number] interstitial edema concerning for CHF exacerbation was noted. CT chest was obtained that showed bilateral pleural effusion with basilar pulmonary airspace infiltrates and atelectasis significantly increased compared to old exam with cardiomegaly and mediastinotomy edema but the similar to old exam. 08/28: Patient has been seen and followed by cardiology with recommendations to continue current medications. Echocardiogram has been obtained and report is pending. Patient is also followed by nephrology with recommendations to continue diuretics, discontinue Norvasc. Repeat chest x-ray reveals stable bibasilar right greater than left patchy and interstitial opacities with stable moderate cardiomegaly, trace left pleural effusion may be on the basis of multi focal pneumonia/atelectasis and/or heart failure. No pneumothorax. Patient has been afebrile, heart rate 62, blood pressure 126/66, pulse ox 94% on 6 L nasal cannula. Plan is to wean oxygen down. Repeat blood work reveals sodium 140, potassium 3.7, chloride 110, CO2 19, BUN 107, creatinine 3.86. Blood sugars are running mostly in the 300s this morning 133. Prandin 1 mg with meals added and Levemir increased to home dose of 35 units at bedtime. Patient has Albright catheter in place which we will have removed today and bladder scan postvoid. Home oxygen assessment to be done. 08/29: Patient is seen today on the cardiac stepdown unit. He is followed by nephrology with recommendations to maintain Albright catheter, avoid hypotension, nephro toxic agents and continue IV fluids at 50 ML's per hour. We have discontinued vancomycin. Patient has also been seen by cardiology. Patient is currently on Zosyn. VQ scan ordered to rule out pulmonary embolism due to ongoing hypoxia. Patient is requiring 6 L nasal cannula with pulse ox of 92%. He's been afebrile, heart rate 66, blood pressure 133/68. Repeat blood work reveals sodium 138, potassium 4.2, chloride 109, CO2 19, BUN 103 and creatinine 4.04. Blood sugars are running between 167 and 249.. Ultrasound of the right lower extremity revealed DVT but could not be determined if this was acute and suggest chronic component. Chest x-ray reveals heart failure underlying pneumonia not excluded. 08/30: Patient is currently on IV heparin for pulmonary embolism.patient does have history of lower extremity DVT which he states he completed course of anticoagulation. Discussed case with oncology and we will plan for eliquis, prescription is been sent to his pharmacy. Pneumonia has been ruled out and antibiotics will be discontinued. Patient has Albright catheter in place which will be discontinued today if okay with nephrology and check postvoid residual. The blood work reveals WBC 8.5, hemoglobin 8.0. BUN 107, creatinine 4.2, CO2 19. Patient has been seen by PT and OT with recommendations for home. 08/31: Catheter was discontinued this morning and bladder scan is ordered for 1 PM. Patient has increased breath sounds on left-sided chest x-ray ordered today. Renal function is slightly improved from yesterday with BUN of 99 and creatinine 3.99. Hemoglobin 7.6. TSH is 2.740. Patient will be started on eliquis and heparin discontinued. She has been afebrile, heart rate 70, blood pressure 141/76, pulse ox 92% on 4 L nasal cannula. The patient may require home oxygen therapy and we will assess closer to discharge. Renal ultrasound revealed no hydronephrosis or nephrolithiasis. There is increased echogenicity of the renal cortex which can be sutured with chronic medical renal disease. Chest x-ray reveals correlate for heart failure otherwise diffuse pneumonia. Findings stable. 09/01: Patient has been afebrile, heart rate 69, blood pressure 167/79, pulse ox 91%. He is now on 7 L nasal cannula. Ultrasound of the chest will be done to evaluate pleural effusions. Patient was transitioned from heparin drip to eliquis yesterday and oncology wants him on eliquis for life. Patient continues to have lower extremity edema. Repeat blood work reveals BUN of 101, creatinine 3.88, CO2 of 20. Blood sugars are running between 130 and 182. We will ask for Dr. Suarez to evaluate for pneumonia. And patient started on Zosyn. Patient does have pleural cath in place which nurse tried to drain today but no output. 09/02: Hemoglobin this morning is 6.7 and patient will be transfused 1 unit of packed RBCs. Repeat blood work for tomorrow.Blood glucose ran between 100 and 180. One dose of IV Lasix ordered by nephrology. 09/03: Patient states that he has been sleeping in his chair because it is easier to breathe. He did require nonrebreather for a few hours during the night. We will order 1 dose of IV Lasix today 40 mg. He has been afebrile, heart rate 72, blood pressure 150/75 and pulse ox 93% on 9 L nasal cannula. Blood sugars have been running mostly between 9785 but only 68 this morning. Hemoglobin today is 7.6 after 1 unit of packed RBC dose infused yesterday. BUN 99 and creatinine 3.71. CO2 19. Patient is on sodium bicarb oral. He is followed closely by nephrology. Consult added for pulmonary medicine. 09/04: Cardiothoracic surgery drained half liter from Pleurx catheter on the left side and recommendations are for drainage on the right side. Interventional radiology added to perform this. At this time, plan is for Dr. Dee to do a right-sided thoracentesis on Saturday. We have transitioned patient off eliquis and onto heparin drip and this will need to be held 4 hours prior to procedure on Saturday. Patient has been afebrile, heart rate 70, blood pressure 148/67, pulse ox 91% on 8 L nasal cannula. Repeat blood work reveals WBC 9.3, hemoglobin 7.4. INR is 1.3. BUN 100 and creatinine 4.04. Blood sugars are running between 89 and 209. Pleural fluid is showing diphtheroid species. 09/05 patient examined bedside. He appears much pale than yesterday. Patient nurse called to him in the morning suggesting of left chest pain. Chest x-ray was obtained that suggested progression of pleural effusion. Patient had 1 L of serosanguineous drainage from the left pleural cavity this morning. Thoracentesis of the right 1750 ml were removed on 09/[address] Reinoso. Labs reviewed suggestive WBC of 19.9 hemoglobin 6.1 hematocrit 18.2 platelet 229 sodium 139 potassium 5.4 BUN 101 creatinine 4.26. Vitals reviewed suggestive of 97.9 pulse 63 respiratory rate 16 blood pressure 102/47 on 6 L high flow. Patient received 2 units of PRBC for low hemoglobin. Repeat hemoglobin in the evening. Due to progression of renal dysfunction plan for renal replacement therapy tomorrow with placement of permacath with vascular surgery. Prandin discontinued Levemir reduced to 10 units as patient's continues to have hypoglycemia 09/06: Patient was scheduled for catheter placement today with vascular surgery for hemodialysis but this was canceled due to hemoglobin of 6.1. He is scheduled for 2 units of packed RBCs. 1 L of sanguinous fluid was removed from the left pleura catheter. Patient is denying having any chest pain. He is currently on 6 L nasal cannula with pulse ox 97%, afebrile, heart rate 70s, blood pressure 99/37. Other lab work today reveals WBC 16.8. BUN 111, creatinine 5.12. Blood sugars are in the 100 and teens. Review Of Systems: Constitutional: No fever, no chills, no night sweats. No weight change. Repor ts weakness,Reports fatigue no lethargy. No daytime sleepiness. EENT: No headache. No blurred vision or double vision, no loss of vision. No loss of Hearing, no ringing in the ears, no dizziness. No nasal drainage or congestion. No epistaxis. No sore throat. Lungs: Reports shortness of breath, occasional cough, no sputum production. No wheezing. Cardiovascular: No chest pain, no lower extremity edema. No palpitations. No paroxysmal nocturnal dyspnea. Reports orthopnea. No lightheadedness or dizziness. No syncopal episodes. Abdominal: No abdominal pain. No nausea, vomiting. No diarrhea. No constipation. No bloody or tarry stools.. No loss of appetite. Genitourinary: No dysuria, increased frequency, urgency. No urinary retention. Musculoskeletal: No myalgias. Reports muscle weakness, no gait dysfunction, no frequent falls. No back pain. No neck pain. Integumentary: No wounds, no lesions. No rash or pruritus. No unusual bruising. Neurologic: No aphasia. No facial droop. No change in mentation. No head injury. No headache. No paralysis. No paresthesia. Psychiatric: No depression. No anxiety. No mood swings. Endocrine: Noted abnormal blood sugars. No weight change. No excessive sweating or thirst. No cold intolerance. Physical exam Gen: This is a 71-year-old male. He is resting in stretcher appears to be fairly comfortable. He is currently on O2 at 6 L. HEENT: Head is atraumatic, normocephalic. Pupils equal, round. Sclerae is anicteric. NECK: Supple. No JVD. No lymphadenopathy. No thyromegaly. LUNGS: Decreased breath sounds bilaterally with bilateral crackles in the bases. Pleural catheter in the left side. No intercostal retractions. HEART: Irregularly irregular rate and rhythm. No murmur. ABDOMEN: Soft. Bowel sounds are present. No masses. No tenderness. EXTREMITIES: Bilateral pedal edema. No calf tenderness. NEUROLOGICAL: Patient is awake, alert and oriented x3. Cranial nerves 2 through 12 are grossly intact. - Constitutional Assessment and plan Acute diastolic heart failure, ejection fraction 55-60% with severe concentric left ventricle hypertrophy and moderate to severe pulmonary hypertension moderate tricuspid regurgitation on October 2020. IV Lasix 40 mg daily. Monitor I&O and daily weights, also followed by cardiology. Acute hypoxic respiratory failure secondary to CHF exacerbation and bilateral pleural effusions, pulmonary embolism, pneumonia possible. Continue eliquis 10 mg twice daily for 10 days--HOLD WHILE WAITING FOR RIGHT THORACENTESIS and catheter placement. Continue Zosyn, consult with infectious disease appreciated. Consult added for pulmonary medicine. Acute kidney injury secondary to ATN with cardiorenal syndrome on chronic kidney disease stage IV secondary to diabetic kidney disease with baseline creatinine 2.5. Nephrology consult appreciated, Lasix 40 mg IV daily, avoid nephrotoxic agents, monitor renal function. Desmopressin 24 g 1 ordered for today by nephrology. Patient to have dialysis catheter placed by vascular surgery which was postponed due to anemia. New onset paroxysmal atrial fibrillation. Continue Coreg 12.5 twice a day and eliquis due to PE (on hold). Metastatic melanoma with metastasis to the lung and lymph nodes enlargement. On immunotherapy, follows Dr. Umaña. Consult with oncology appreciated. Recurrent pleural effusion With pleural cath involving the left pleural cavity. Follows cardiothoracic surgeon at the [facility]. Pleural catheter being drained daily. Hypoglycemia with history Diabetes mellitus type 2, hypoglycemia resolved. A1c 8.8. Levemir decreased to 10 units at bedtime, Prandin discontinued, Insulin sliding scale. Anemia of kidney disease with acute blood loss anemia secondary to pleural effusion. Patient is status post iron infusion, ordered 2 unit of packed RBCs. Continue Aranesp. CAD with prior CABG in the past, status post occlusive disease in the LAD, and diagonal branch. Continue aspirin, Coreg, Lipitor 80 mg daily Covid infection 19 on 10/18, Received Covid booster 1 week Uncontrolled hypertension. Coreg 12.5 mg twice daily, hydralazine 25 mg twice daily, Hyperlipidemia. Continue atorvastatin 80 mg daily History of GI bleed, none currently, was previously on Eliquis. Patient on aspirin only at admission. DVT prophylaxis. Eliquis CODE STATUS full code DISCHARGE PLAN Home. Impression and plan of care have been directed as dictated by the signing physician. Marry Andre nurse practitioner acting as scribe for signing physician. Objective - Vital Signs Vital signs: Vital Signs Temp 98.2 F 09/06/21 13:46 Pulse 70 09/06/21 13:46 Resp 16 09/06/21 13:46 BP 113/53 09/06/21 13:46 Pulse Ox 99 09/06/21 13:33 Intake & Output 09/05/21 09/06/21 09/06/21 18:59 06:59 18:59 Intake Total 1008 50 Output Total 1000 150 0 Balance 8 -150 50 Weight 88.9 kg Intake: IV 50 Intake, IV Titration 100 Amount Piperacillin-Tazobactam 3 100 .375 gm In Sodium Chloride 0.9% 100 ml @ 25 mls/hr IVPB Q12H [facility] Rx# :[id number] Oral 598 Blood Product 310 0 Rc As-1 Unit 0 [id number] Rc As-1 Unit 310 [id number] Output: Drainage 1000 Left Chest 1000 Urine 150 0 Other: Voiding Method Urinal Urinal Urinal # Voids 3 # Bowel Movements 1 - Labs CBC & Chem 7: 09/06/21 05:37 09/06/21 05:37 Labs: Abnormal Lab Results - Last 24 Hours (Table) 09/02/21 09/05/21 09/05/21 Range/Units 11:45 05:30 16:29 WBC (3.8-10.6) k/uL RBC (4.30-5.90) m/uL Hgb (13.0-17.5) gm/dL Hct (39.0-53.0) % RDW (11.5-15.5) % Neutrophils # (1.3-7.7) k/uL Lymphocytes # (1.0-4.8) k/uL PT 13.7 H (9.0-12.0) sec INR 1.3 H (<1.2) D-Dimer 8.21 H (<0.60) mg/L FEU Sodium (137-145) mmol/L Carbon Dioxide (22-30) mmol/L BUN (9-20) mg/dL Creatinine (0.66-1.25) mg/dL POC Glucose (mg/dL) (75-99) mg/dL Calcium (8.4-10.2) mg/dL Magnesium (1.6-2.3) mg/dL Total Protein (6.3-8.2) g/dL Albumin (3.5-5.0) g/dL Procalcitonin 0.58 H (0.02-0.09) ng/mL Crossmatch See Detail 09/05/21 09/05/21 09/05/21 Range/Units 16:29 16:44 20:30 WBC (3.8-10.6) k/uL RBC (4.30-5.90) m/uL Hgb (13.0-17.5) gm/dL Hct (39.0-53.0) % RDW (11.5-15.5) % Neutrophils # (1.3-7.7) k/uL Lymphocytes # (1.0-4.8) k/uL PT (9.0-12.0) sec INR (<1.2) D-Dimer (<0.60) mg/L FEU Sodium (137-145) mmol/L Carbon Dioxide (22-30) mmol/L BUN (9-20) mg/dL Creatinine (0.66-1.25) mg/dL POC Glucose (mg/dL) 117 H 116 H (75-99) mg/dL Calcium (8.4-10.2) mg/dL Magnesium (1.6-2.3) mg/dL Total Protein 4.4 L (6.3-8.2) g/dL Albumin 2.0 L (3.5-5.0) g/dL Procalcitonin (0.02-0.09) ng/mL Crossmatch 09/06/21 09/06/21 09/06/21 Range/Units 05:37 05:37 05:56 WBC 16.8 H (3.8-10.6) k/uL RBC 2.03 L (4.30-5.90) m/uL Hgb 6.1 L* (13.0-17.5) gm/dL Hct 18.7 L* (39.0-53.0) % RDW 15.9 H (11.5-15.5) % Neutrophils # 15.1 H (1.3-7.7) k/uL Lymphocytes # 0.4 L (1.0-4.8) k/uL PT (9.0-12.0) sec INR (<1.2) D-Dimer (<0.60) mg/L FEU Sodium 136 L (137-145) mmol/L Carbon Dioxide 17 L (22-30) mmol/L BUN 111 H* (9-20) mg/dL Creatinine 5.12 H (0.66-1.25) mg/dL POC Glucose (mg/dL) 117 H (75-99) mg/dL Calcium 8.2 L (8.4-10.2) mg/dL Magnesium 2.4 H (1.6-2.3) mg/dL Total Protein (6.3-8.2) g/dL Albumin (3.5-5.0) g/dL Procalcitonin (0.02-0.09) ng/mL Crossmatch 09/06/21 09/06/21 Range/Units 09:37 12:07 WBC (3.8-10.6) k/uL RBC (4.30-5.90) m/uL Hgb (13.0-17.5) gm/dL Hct (39.0-53.0) % RDW (11.5-15.5) % Neutrophils # (1.3-7.7) k/uL Lymphocytes # (1.0-4.8) k/uL PT (9.0-12.0) sec INR (<1.2) D-Dimer (<0.60) mg/L FEU Sodium (137-145) mmol/L Carbon Dioxide (22-30) mmol/L BUN (9-20) mg/dL Creatinine (0.66-1.25) mg/dL POC Glucose (mg/dL) 107 H (75-99) mg/dL Calcium (8.4-10.2) mg/dL Magnesium (1.6-2.3) mg/dL Total Protein (6.3-8.2) g/dL Albumin (3.5-5.0) g/dL Procalcitonin (0.02-0.09) ng/mL Crossmatch See Detail Microbiology - Last 24 Hours (Table) 09/04/21 15:03 Gram Stain - Preliminary Pleural Fluid Body Fluid Culture - Preliminary 09/04/21 15:03 Acid Fast Bacilli Smear - Final Pleural Fluid Acid Fast Bacilli Culture - Preliminary 09/01/21 12:00 Gram Stain - Final Pleural Fluid Body Fluid Culture - Final Diphtheroid species
--- NOTE | 2021-09-06 15:44 | P.PN ---
Subjective Progress Note Date: 09/06/21 Principal diagnosis: Shortness of breath On 09/06/2021 patient seen in follow-up on selective care unit, he is awake and alert, in no acute distress, he is currently resting in bed, on 4 L of oxygen, breathing fairly comfortable. He had right subclavian permacath inserted for hemodialysis today. He still has left-sided pigtail chest tube in place with bloody drainage out of the chest tube, it is to water seal, no evidence of air leak. Today's chest x-ray shows bilateral airspace disease and left-sided pleural effusion stable in appearance. Patient is status post right-sided thoracentesiswith removal of 1750 ML of slightly serosanguineous fluid on 09/04/2021, and pleural fluid analysis revealed transudative fluid consistent with acute exacerbation of CHF. Patient was also new onset atrial fibrillation this admission, but currently his anticoagulation is on hold related to bloody drainage out of his left-sided chest tube. Today's hemoglobin is 6.1, and patient has been transfused with another unit of packed red blood cells. Patient had previously received IM and a blood on 09/02/2021. His d-dimer was elevated on yesterday's labs at 8.21, and patient was diagnosed with new acute left popliteal DVT. However he is not a candidate for anticoagulation right now, and we recommended placement of IVC filter. Pleural fluid cytology is still pending at this time. Vital signs have been stable, no worsening dyspnea, today's labs have been reviewed, his white blood cell count is slightly improved and is down to 16.8, his platelet count is 211, sodium is 136, potassium is 5.1, his BUN is 111, creatinine is 5.12. Patient remains on Zosyn. His pleural flu id culture showed diphtheroid species and this was on the pleural fluid collected on 09/01/2021, his right-sided pleural fluid collected on 09/04/2021 has shown no growth thus far. Objective - Vital Signs Vital signs: Vital Signs Temp 98.2 F 09/06/21 13:46 Pulse 70 09/06/21 13:46 Resp 16 09/06/21 13:46 BP 113/53 09/06/21 13:46 Pulse Ox 99 09/06/21 13:33 Intake & Output 09/05/21 09/06/21 09/06/21 18:59 06:59 18:59 Intake Total 1008 50 Output Total 1000 150 0 Balance 8 -150 50 Weight 88.9 kg Intake: IV 50 Intake, IV Titration 100 Amount Piperacillin-Tazobactam 3 100 .375 gm In Sodium Chloride 0.9% 100 ml @ 25 mls/hr IVPB Q12H [facility] Rx# :[id number] Oral 598 Blood Product 310 0 Rc As-1 Unit 0 [id number] Rc As-1 Unit 310 [id number] Output: Drainage 1000 Left Chest 1000 Urine 150 0 Other: Voiding Method Urinal Urinal Urinal # Voids 3 # Bowel Movements 1 - Exam GENERAL EXAM: Alert, very pleasant, 71-year-old white male, on 4 L of oxygen, breathing comfortable, resting in bed, comfortable in no apparent distress. HEAD: Normocephalic/atraumatic. EYES: Normal reaction of pupils, equal size. Conjunctiva pink, sclera white. NOSE: Clear with pink turbinates. THROAT: No erythema or exudates. NECK: No masses, no JVD, no thyroid enlargement, no adenopathy. Right subclavian hemodialysis permacath CHEST: No chest wall deformity. Symmetrical expansion. Left chest Pleurx catheter connected to Pleuravac, to water seal, with bloody drainage LUNGS: Equal air entry with diminished breath sounds at the bases, mild crackles CVS: Regular rate and rhythm, normal S1 and S2, no gallops, no murmurs, no rubs ABDOMEN: Soft, nontender. No hepatosplenomegaly, normal bowel sounds, no guarding or rigidity. EXTREMITIES: No clubbing, 1+ lower extremity edema, no cyanosis, 2+ pulses and upper and lower extremities. MUSCULOSKELETAL: Muscle strength and tone normal. SPINE: No scoliosis or deformity SKIN: No rashes CENTRAL NERVOUS SYSTEM: Alert and oriented -3. No focal deficits, tone is normal in all 4 extremities. PSYCHIATRIC: Alert and oriented -3. Appropriate affect. Intact judgment and insight. - Labs CBC & Chem 7: 09/06/21 05:37 09/06/21 05:37 Labs: Abnormal Lab Results - Last 24 Hours (Table) 09/02/21 09/05/21 09/05/21 Range/Units 11:45 05:30 16:29 WBC (3.8-10.6) k/uL RBC (4.30-5.90) m/uL Hgb (13.0-17.5) gm/dL Hct (39.0-53.0) % RDW (11.5-15.5) % Neutrophils # (1.3-7.7) k/uL Lymphocytes # (1.0-4.8) k/uL PT 13.7 H (9.0-12.0) sec INR 1.3 H (<1.2) D-Dimer 8.21 H (<0.60) mg/L FEU Sodium (137-145) mmol/L Carbon Dioxide (22-30) mmol/L BUN (9-20) mg/dL Creatinine (0.66-1.25) mg/dL POC Glucose (mg/dL) (75-99) mg/dL Calcium (8.4-10.2) mg/dL Magnesium (1.6-2.3) mg/dL Erythropoietin (2.00-30.00) mIU/mL Total Protein (6.3-8.2) g/dL Albumin (3.5-5.0) g/dL Procalcitonin 0.58 H (0.02-0.09) ng/mL Crossmatch See Detail 09/05/21 09/05/21 09/05/21 Range/Units 16:29 16:29 16:44 WBC (3.8-10.6) k/uL RBC (4.30-5.90) m/uL Hgb (13.0-17.5) gm/dL Hct (39.0-53.0) % RDW (11.5-15.5) % Neutrophils # (1.3-7.7) k/uL Lymphocytes # (1.0-4.8) k/uL PT (9.0-12.0) sec INR (<1.2) D-Dimer (<0.60) mg/L FEU Sodium (137-145) mmol/L Carbon Dioxide (22-30) mmol/L BUN (9-20) mg/dL Creatinine (0.66-1.25) mg/dL POC Glucose (mg/dL) 117 H (75-99) mg/dL Calcium (8.4-10.2) mg/dL Magnesium (1.6-2.3) mg/dL Erythropoietin 79.17 H (2.00-30.00) mIU/mL Total Protein 4.4 L (6.3-8.2) g/dL Albumin 2.0 L (3.5-5.0) g/dL Procalcitonin (0.02-0.09) ng/mL Crossmatch 09/05/21 09/06/21 09/06/21 Range/Units 20:30 05:37 05:37 WBC 16.8 H (3.8-10.6) k/uL RBC 2.03 L (4.30-5.90) m/uL Hgb 6.1 L* (13.0-17.5) gm/dL Hct 18.7 L* (39.0-53.0) % RDW 15.9 H (11.5-15.5) % Neutrophils # 15.1 H (1.3-7.7) k/uL Lymphocytes # 0.4 L (1.0-4.8) k/uL PT (9.0-12.0) sec INR (<1.2) D-Dimer (<0.60) mg/L FEU Sodium 136 L (137-145) mmol/L Carbon Dioxide 17 L (22-30) mmol/L BUN 111 H* (9-20) mg/dL Creatinine 5.12 H (0.66-1.25) mg/dL POC Glucose (mg/dL) 116 H (75-99) mg/dL Calcium 8.2 L (8.4-10.2) mg/dL Magnesium 2.4 H (1.6-2.3) mg/dL Erythropoietin (2.00-30.00) mIU/mL Total Protein (6.3-8.2) g/dL Albumin (3.5-5.0) g/dL Procalcitonin (0.02-0.09) ng/mL Crossmatch 09/06/21 09/06/21 09/06/21 Range/Units 05:56 09:37 12:07 WBC (3.8-10.6) k/uL RBC (4.30-5.90) m/uL Hgb (13.0-17.5) gm/dL Hct (39.0-53.0) % RDW (11.5-15.5) % Neutrophils # (1.3-7.7) k/uL Lymphocytes # (1.0-4.8) k/uL PT (9.0-12.0) sec INR (<1.2) D-Dimer (<0.60) mg/L FEU Sodium (137-145) mmol/L Carbon Dioxide (22-30) mmol/L BUN (9-20) mg/dL Creatinine (0.66-1.25) mg/dL POC Glucose (mg/dL) 117 H 107 H (75-99) mg/dL Calcium (8.4-10.2) mg/dL Magnesium (1.6-2.3) mg/dL Erythropoietin (2.00-30.00) mIU/mL Total Protein (6.3-8.2) g/dL Albumin (3.5-5.0) g/dL Procalcitonin (0.02-0.09) ng/mL Crossmatch See Detail Microbiology - Last 24 Hours (Table) 09/04/21 15:03 Gram Stain - Preliminary Pleural Fluid Body Fluid Culture - Preliminary 09/04/21 15:03 Acid Fast Bacilli Smear - Final Pleural Fluid Acid Fast Bacilli Culture - Preliminary 09/01/21 12:00 Gram Stain - Final Pleural Fluid Body Fluid Culture - Final Diphtheroid species Assessment and Plan Plan: #1. Acute hypoxic respiratory failure to factorial, related to bilateral pleural effusions, with the possibility of malignant plural effusions unless proven otherwise. There is a component of acute exacerbation of CHF, with diastolic dysfunction. Possibility of underlying pneumonia is not completely excluded #2. Metastatic melanoma, with recurrent left-sided pleural effusion status post Pleurx catheter placement #3. New onset atrial fibrillation #4. Right-sided pleural effusion status post right-sided thoracentesis on 09/04/2021 with removal of 1750 ML of slightly pink tinged pleural fluid, rivas sudate of in nature likely related to fluid overload and acute diastolic CHF, cytology is pending, and cultures are negative thus far #5. Acute kidney injury with acute tubular necrosis, patient will be initiated on hemodialysis #6. Chronic kidney disease stage IV #7. Acute on chronic anemia, status post transfusion with 2 units of packed red blood cells. Patient's left-sided Pleurx catheter is draining bloody effusion #8. Dyslipidemia #9. History of hypertension #10. Chronic anemia related to chronic kidney disease #11. Left lower extremity DVT, and patient is not a candidate for anticoagulation related to acute anemia, recommend IVC filter placement Plan: Stable from pulmonary perspective No worsening dyspnea Hemodialysis and diuretics per nephrology Patient has been transfused with 1 unit of packed red blood cells for hemoglobin of 6.1 Patient probably is a poor candidate for anticoagulation although she may need anticoagulation for atrial fibrillation anyway We recommend IVC filter placement and patient is clear for IVC filter placement Recommend addressing CODE STATUS I performed a history & physical examination of the patient and discussed their management with my nurse practitioner, Lidia Ramirez. I reviewed the nurse practitioner's note and agree with the documented findings and plan of care. Lung sounds are positive for diminished breath sounds throughout the lung dong. The findings and the impression was discussed with the patient. I attest to the documentation by the nurse practitioner. Time with Patient: Less than 30
[2021-09-06 16:34] LABS: Glucose,Whole Blood 108 mg/dL (75-99)
[2021-09-06 20:09] LABS: INR 1.2 (<1.2); Partial Thromboplastin Time 33.6 sec (22.0-30.0)
[2021-09-06 20:13] LABS: Glucose,Whole Blood 138 mg/dL (75-99)
[2021-09-06] MEDS: INSULIN DETEMIR (LEVEMIR) 100 UNIT/ML SYR SQ SCH ×2 (21:36→21:37)
--- NOTE | 2021-09-06 22:25 | PN ---
PROGRESS NOTE DATE OF SERVICE: 09/06/2021 REASON FOR FOLLOWUP: Possible pneumonia. INTERVAL HISTORY: The patient is afebrile. The patient is status post dialysis catheter placement for worsening of his renal failure. The patient did have a chest tube on the left side. The patient denies having any chest pain. No worsening shortness of breath. Occasional cough. No abdominal pain or diarrhea. PHYSICAL EXAMINATION: Blood pressure is 127/59, pulse of 63, temperature 97.2. He is 97% on 4 L nasal cannula. General description is an elderly male lying in bed in no distress. Respiratory system: Unlabored breathing, decreased intensity of breath sounds. No wheeze. Heart S1, S2. Regular rate and rhythm. Abdomen soft, no tenderness. LABS: The pleural fluid culture repeat is currently pending. DIAGNOSTIC IMPRESSION AND PLAN: Patient with effusion on the left side with PleurX catheter, status post thoracentesis and chest tube placement. Those cultures are pending. Patient is covered with Zosyn; to continue while waiting for the culture to finalize, and monitor his clinical course closely. MMODL / IJN: [id number] /
[2021-09-07 06:06] LABS: Glucose,Whole Blood 246 mg/dL (75-99)
[2021-09-07] MEDS: INSULIN ASPART (NovoLOG) 100 UNIT/ML VIAL SQ SCH ×3 (06:28→16:58)
[2021-09-07] MEDS: carvediloL 12.5 MG TAB PO SCH ×2 (06:28→16:51)
[2021-09-07 07:42] LABS: Anisocytosis Slight; Basophils % (A) 0 %; Eosinophils # (A) 0.2 k/uL (0-0.7); Eosinophils % (A) 3 %; HCT 22.3 % (39.0-53.0); HGB 7.4 gm/dL (13.0-17.5); Hypochromasia Slight; Lymphocytes # (A) 0.3 k/uL (1.0-4.8); Lymphocytes % (A) 4 %; MCH 30.2 pg (25.0-35.0); MCV 91.4 fL (80.0-100.0); Mean Platelet Volume 7.8; Monocytes # (A) 0.4 k/uL (0-1.0); Monocytes % (A) 5 %; Neutrophils # (A) 6.8 k/uL (1.3-7.7); Neutrophils % (A) 87 %; Platelet Count 183 k/uL (150-450); Poikilocytosis Slight; RBC 2.44 m/uL (4.30-5.90); RDW 16.4 % (11.5-15.5); WBC 7.8 k/uL (3.8-10.6)
[2021-09-07 08:00] LABS: Albumin 2.1 g/dL (3.5-5.0); Calcium 7.8 mg/dL (8.4-10.2); Magnesium 2.4 mg/dL (1.6-2.3); Potassium 4.5 mmol/L (3.5-5.1); Total Bilirubin 0.5 mg/dL (0.2-1.3); Total Protein 4.6 g/dL (6.3-8.2)
--- NOTE | 2021-09-07 08:15 | P.PN ---
Subjective Progress Note Date: 09/07/21 Principal diagnosis: Bilateral pleural effusions with left Pleurx catheter in place, new-onset atrial fibrillation, VQ scan showing a large mismatch defect involving the right apex and right upper lobe with large segmental mismatch defect indicating high probability for pulmonary embolus. Past medical history significant for hypertension, hyperlipidemia, insulin-dependent diabetes mellitus, acute on chronic diastolic congestive heart failure, coronary artery disease with prev ious PCI and coronary artery bypass grafting surgery 3 vessels, chronic kidney disease stage IV, COVID-19 infection in September 2020, lifetime nonsmoker and history of melanoma which he reports was in remission until March 2021, with metastasis to the lung with enlarged lymph nodes, currently being treated with immunotherapy. The patient subsequently in April 2021 had a left chest Pleurx catheter placed due to recurrent pleural effusions on his left side,the Pleurx catheter was placed at [facility]. Status post day #3 right-sided thoracentesis with 1750 mL of slightly s erosanguineous pleural fluid drained by Dr. Reinoso. The patient was seen in follow-up today 09/07/2021 is bedside on the cardiac stepdown unit. He is currently sitting up in bed, is awake, alert and oriented 3 and is in no acute distress. His breathing is somewhat improved today according to the patient and he currently denies any complaints of pain. Left- sided Pleurx catheter remains in place and was drained for 1 L of fluid yesterday 09/06/2021. It was subsequently placed to a bedside Pleur-evac system and is currently on waterseal. There was 500 mL of drainage in the last 8 hours from the Pleurx catheter and 2 L of fluid drained in the last 24 hours. Currently he is on 2 L nasal cannula with oxygen saturations 94%. He is achieving 9077-0225 mL on his incentive spirometry with encouragement. He had a right chest dialysis catheter placed yesterday and underwent hemodialysis with 1 L of fluid removed. He has been afebrile the last 24 hours. Objective - Vital Signs Vital signs: Vital Signs Temp 97.8 F 09/07/21 04:00 Pulse 75 09/07/21 04:00 Resp 18 09/07/21 04:00 BP 114/57 09/07/21 04:00 Pulse Ox 94 L 09/07/21 04:00 Intake & Output 09/06/21 09/07/21 09/07/21 18:59 06:59 18:59 Intake Total 820 Output Total 600 1500 Balance 220 -1500 Weight 87.4 kg Intake: IV 50 Intake, IV Titration 150 Amount Desmopressin Acetate 24 50 mcg In Sodium Chloride 0. 9% 50 ml @ 200 mls/hr IVPB ONCE ONE Rx#: [id number] Piperacillin-Tazobactam 3 100 .375 gm In Sodium Chloride 0.9% 100 ml @ 25 mls/hr IVPB Q12H [facility] Rx# :[id number] Blood Product 620 Rc As-1 Unit 310 [id number] Rc As-1 Unit 310 [id number] Output: Chest Tube Drainage 500 Pleural Catheter Left 500 Drainage 600 Left Chest 600 Urine 0 0 Hemodialysis 1000 Other: Voiding Method Urinal Urinal # Voids 0 # Bowel Movements 1 - Exam CONSTITUTIONAL: Sitting up in bed on the cardiac stepdown unit, appears comfortable, cooperative, no apparent acute distress. HEENT: Neck is supple, no JVD, no lymphadenopathy. RESPIRATORY: Lungs sounds essentially clear throughout, diminished to his bilateral bases with some few scattered crackles to his bilateral bases. Resp irations are symmetrical and nonlabored. Currently on 2 L nasal cannula oxygen with oxygen saturations 94%. Able to achieve 9416-6690 mL on his incentive spirometry. Strong cough. Left chest Pleurx catheter in place [facility] No air leak is present. Draining thin serosanguineous drainage with 500 mL output in the last 8 hours and 2 L output in the last 24 hours. CARDIOVASCULAR: Regular rhythm and rate. S1 and S2 present, negative for S3, gallop or murmur. +1 edema to left lower extremity and 2+ edema to his right lower extremity. No calf pain or tenderness noted. GASTROINTESTINAL: Abdomen soft, nontender, nondistended. Active bowel sounds present 4 quadrants. Tolerating diet. Passing flatus. No guarding or rigidity. GENITOURINARY: Right chest dialysis catheter with hemodialysis yesterday with 1 L of fluid removed. INTEGUMENTARY: Skin is warm and dry with no evidence of clubbing or cyanosis. Pleurx catheter dressing to his left anterior chest is clean, dry and intact. NEUROLOGIC: No focal deficits. MUSKULOSKELETAL: Able to move all extremities, strength equal bilaterally, generalized weakness. PSYCHIATRIC: Alert and oriented to person place and time, appropriate affect, intact judgment and insight. - Allied health notes Allied health notes reviewed: nursing - Labs CBC & Chem 7: 09/07/21 07:06 09/07/21 07:06 Labs: Abnormal Lab Results - Last 24 Hours (Table) 09/02/21 09/05/21 09/06/21 Range/Units 11:45 16:29 05:37 WBC 16.8 H (3.8-10.6) k/uL RBC 2.03 L (4.30-5.90) m/uL Hgb 6.1 L* (13.0-17.5) gm/dL Hct 18.7 L* (39.0-53.0) % RDW 15.9 H (11.5-15.5) % Neutrophils # 15.1 H (1.3-7.7) k/uL Lymphocytes # 0.4 L (1.0-4.8) k/uL INR (<1.2) APTT (22.0-30.0) sec Fibrinogen (200-500) mg/dL D-Dimer (<0.60) mg/L FEU Chloride (98-107) mmol/L BUN (9-20) mg/dL Creatinine (0.66-1.25) mg/dL Glucose (74-99) mg/dL POC Glucose (mg/dL) (75-99) mg/dL Calcium (8.4-10.2) mg/dL Phosphorus (2.5-4.5) mg/dL Magnesium (1.6-2.3) mg/dL Erythropoietin 79.17 H (2.00-30.00) mIU/mL Total Protein (6.3-8.2) g/dL Albumin (3.5-5.0) g/dL Crossmatch See Detail 09/06/21 09/06/21 09/06/21 Range/Units 09:37 12:07 16:33 WBC (3.8-10.6) k/uL RBC (4.30-5.90) m/uL Hgb (13.0-17.5) gm/dL Hct (39.0-53.0) % RDW (11.5-15.5) % Neutrophils # (1.3-7.7) k/uL Lymphocytes # (1.0-4.8) k/uL INR (<1.2) APTT (22.0-30.0) sec Fibrinogen (200-500) mg/dL D-Dimer (<0.60) mg/L FEU Chloride (98-107) mmol/L BUN (9-20) mg/dL Creatinine (0.66-1.25) mg/dL Glucose (74-99) mg/dL POC Glucose (mg/dL) 107 H 108 H (75-99) mg/dL Calcium (8.4-10.2) mg/dL Phosphorus (2.5-4.5) mg/dL Magnesium (1.6-2.3) mg/dL Erythropoietin (2.00-30.00) mIU/mL Total Protein (6.3-8.2) g/dL Albumin (3.5-5.0) g/dL Crossmatch See Detail 09/06/21 09/06/21 09/07/21 Range/Units 19:33 20:11 06:00 WBC (3.8-10.6) k/uL RBC (4.30-5.90) m/uL Hgb (13.0-17.5) gm/dL Hct (39.0-53.0) % RDW (11.5-15.5) % Neutrophils # (1.3-7.7) k/uL Lymphocytes # (1.0-4.8) k/uL INR 1.2 H (<1.2) APTT 33.6 H (22.0-30.0) sec Fibrinogen 620 H (200-500) mg/dL D-Dimer 4.24 H (<0.60) mg/L FEU Chloride (98-107) mmol/L BUN (9-20) mg/dL Creatinine (0.66-1.25) mg/dL Glucose (74-99) mg/dL POC Glucose (mg/dL) 138 H 246 H (75-99) mg/dL Calcium (8.4-10.2) mg/dL Phosphorus (2.5-4.5) mg/dL Magnesium (1.6-2.3) mg/dL Erythropoietin (2.00-30.00) mIU/mL Total Protein (6.3-8.2) g/dL Albumin (3.5-5.0) g/dL Crossmatch 09/07/21 09/07/21 Range/Units 07:06 07:06 WBC (3.8-10.6) k/uL RBC 2.44 L (4.30-5.90) m/uL Hgb 7.4 L (13.0-17.5) gm/dL Hct 22.3 L (39.0-53.0) % RDW 16.4 H (11.5-15.5) % Neutrophils # (1.3-7.7) k/uL Lymphocytes # 0.3 L (1.0-4.8) k/uL INR (<1.2) APTT (22.0-30.0) sec Fibrinogen (200-500) mg/dL D-Dimer (<0.60) mg/L FEU Chloride 108 H (98-107) mmol/L BUN 85 H (9-20) mg/dL Creatinine 4.28 H (0.66-1.25) mg/dL Glucose 224 H (74-99) mg/dL POC Glucose (mg/dL) (75-99) mg/dL Calcium 7.8 L (8.4-10.2) mg/dL Phosphorus 7.0 H (2.5-4.5) mg/dL Magnesium 2.4 H (1.6-2.3) mg/dL Erythropoietin (2.00-30.00) mIU/mL Total Protein 4.6 L (6.3-8.2) g/dL Albumin 2.1 L (3.5-5.0) g/dL Crossmatch Microbiology - Last 24 Hours (Table) 09/04/21 15:03 Anaerobic Culture - Preliminary Pleural Fluid 09/04/21 15:03 Gram Stain - Preliminary Pleural Fluid Body Fluid Culture - Preliminary - Imaging and Cardiology Chest x-ray: report reviewed, image reviewed Assessment and Plan Assessment: 1. 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 Bilateral pleural effusions with history of recurrent left-sided pleural effusions status post left Pleurx catheter placement. Pleurx was [facility] at [facility] in April 2021, status post right thoracentesis on 09/04/[address] Palomo 3. Chronic kidney disease stage IV, with placement of dialysis catheter yesterday and initiation of hemodialysis 4. New onset atrial fibrillation 5. Coronary artery disease with history of previous PCI and coronary artery bypass grafting surgery in 2016 6. History of COVID-19 infection 7. History of hypertension 8. History of hyperlipidemia 9. Insulin-dependent diabetes mellitus 10. Lifetime nonsmoker Plan: 1. Continue to follow daily chest x-rays. 2. Pleurx catheter was drained this morning for 1 L of serosanguineous colored drainage. Pleurx catheter was placed to [facility] system and is currently on waterseal. Continue to record strict inaccurate I's and O's. 3. Encourage use of his incentive spirometry 10 times every hour while awake. 4. Medical management and other comorbidities per primary care service recommendations. 5. More recommendations to follow based on patient's clinical course. Time with Patient: Greater than 30
--- NOTE | 2021-09-07 08:35 | IR ---
EXAMINATION TYPE: IR cvc insert central tunneled DATE OF EXAM: 09/06/2021 COMPARISON: NONE HISTORY: Fluoroscopy time. Fluoroscopy was provided to the referring clinician.
--- NOTE | 2021-09-07 08:44 | XR ---
EXAMINATION TYPE: XR chest 1V portable DATE OF EXAM: 09/07/2021 COMPARISON: 09/06/2021 HISTORY: Abnormal x-ray TECHNIQUE: Single frontal view of the chest is obtained. FINDINGS: There is interval increased aeration and reduction in size of consolidation and pleural ef fusion on the left. Patchy right perihilar infiltrate persists. Cardiomegaly and postoperative change with the dialysis catheter noted. Tip of the catheter is along the inferior margin of the right atri um. Arthropathy of the shoulders. No pneumothorax. IMPRESSION: 1. Improving left-sided consolidation and small effusion. 2. Stable right perihilar infiltrate. Correlate for pneumonia versus CHF.
[2021-09-07] MEDS: ASPIRIN 81 MG PO SCH (08:51)
[2021-09-07] MEDS: FUROSEMIDE 10 MG/ML 4 ML VIAL IV SCH (08:51)
[2021-09-07] MEDS: ATORVASTATIN 80 MG TAB PO SCH (08:51)
[2021-09-07] MEDS: SODIUM BICARBONATE TAB 650 MG TAB PO SCH ×2 (08:51→21:19)
--- NOTE | 2021-09-07 09:49 | P.PN ---
Subjective Patient is seen in follow-up for acute kidney injury on chronic kidney disease. Started on hemodialysis 09/06/2021. Tolerated dialysis well yesterday. Remains edematous. Hemoglobin improved post blood trans-fusion. Oral intake fair. No vomiting or diarrhea. Vital signs are stable. General: The patient appeared well nourished and normally developed. HEENT: Head exam is unremarkable. LUNGS: Breath sounds decreased. Pleurx catheter noted. HEART: Rate and Rhythm are regular. ABDOMEN: Soft, no distention. EXTREMITITES: 1+ edema. Objective - Vital Signs Vital signs: Vital Signs Temp 99.5 F 09/07/21 08:00 Pulse 66 09/07/21 08:00 Resp 16 09/07/21 08:00 BP 123/60 09/07/21 08:00 Pulse Ox 95 09/07/21 08:00 Intake & Output 09/06/21 09/07/21 09/07/21 18:59 06:59 18:59 Intake Total 820 240 Output Total 600 1500 Balance 220 -1500 240 Weight 87.4 kg Intake: IV 50 Intake, IV Titration 150 Amount Desmopressin Acetate 24 50 mcg In Sodium Chloride 0. 9% 50 ml @ 200 mls/hr IVPB ONCE ONE Rx#: [id number] Piperacillin-Tazobactam 3 100 .375 gm In Sodium Chloride 0.9% 100 ml @ 25 mls/hr IVPB Q12H [facility] Rx# :[id number] Oral 240 Blood Product 620 Rc As-1 Unit 310 [id number] Rc As-1 Unit 310 [id number] Output: Chest Tube Drainage 500 Pleural Catheter Left 500 Drainage 600 Left Chest 600 Urine 0 0 Hemodialysis 1000 Other: Voiding Method Urinal Urinal # Voids 0 # Bowel Movements 1 - Labs CBC & Chem 7: 09/07/21 07:06 09/07/21 07:06 Labs: Abnormal Lab Results - Last 24 Hours (Table) 09/02/21 09/05/21 09/06/21 Range/Units 11:45 16:29 09:37 RBC (4.30-5.90) m/uL Hgb (13.0-17.5) gm/dL Hct (39.0-53.0) % RDW (11.5-15.5) % Lymphocytes # (1.0-4.8) k/uL INR (<1.2) APTT (22.0-30.0) sec Fibrinogen (200-500) mg/dL D-Dimer (<0.60) mg/L FEU Chloride (98-107) mmol/L BUN (9-20) mg/dL Creatinine (0.66-1.25) mg/dL Glucose (74-99) mg/dL POC Glucose (mg/dL) (75-99) mg/dL Calcium (8.4-10.2) mg/dL Phosphorus (2.5-4.5) mg/dL Magnesium (1.6-2.3) mg/dL Erythropoietin 79.17 H (2.00-30.00) mIU/mL Total Protein (6.3-8.2) g/dL Albumin (3.5-5.0) g/dL Crossmatch See Detail See Detail 09/06/21 09/06/21 09/06/21 Range/Units 12:07 16:33 19:33 RBC (4.30-5.90) m/uL Hgb (13.0-17.5) gm/dL Hct (39.0-53.0) % RDW (11.5-15.5) % Lymphocytes # (1.0-4.8) k/uL INR 1.2 H (<1.2) APTT 33.6 H (22.0-30.0) sec Fibrinogen 620 H (200-500) mg/dL D-Dimer 4.24 H (<0.60) mg/L FEU Chloride (98-107) mmol/L BUN (9-20) mg/dL Creatinine (0.66-1.25) mg/dL Glucose (74-99) mg/dL POC Glucose (mg/dL) 107 H 108 H (75-99) mg/dL Calcium (8.4-10.2) mg/dL Phosphorus (2.5-4.5) mg/dL Magnesium (1.6-2.3) mg/dL Erythropoietin (2.00-30.00) mIU/mL Total Protein (6.3-8.2) g/dL Albumin (3.5-5.0) g/dL Crossmatch 09/06/21 09/07/21 09/07/21 Range/Units 20:11 06:00 07:06 RBC (4.30-5.90) m/uL Hgb (13.0-17.5) gm/dL Hct (39.0-53.0) % RDW (11.5-15.5) % Lymphocytes # (1.0-4.8) k/uL INR (<1.2) APTT (22.0-30.0) sec Fibrinogen (200-500) mg/dL D-Dimer (<0.60) mg/L FEU Chloride 108 H (98-107) mmol/L BUN 85 H (9-20) mg/dL Creatinine 4.28 H (0.66-1.25) mg/dL Glucose 224 H (74-99) mg/dL POC Glucose (mg/dL) 138 H 246 H (75-99) mg/dL Calcium 7.8 L (8.4-10.2) mg/dL Phosphorus 7.0 H (2.5-4.5) mg/dL Magnesium 2.4 H (1.6-2.3) mg/dL Erythropoietin (2.00-30.00) mIU/mL Total Protein 4.6 L (6.3-8.2) g/dL Albumin 2.1 L (3.5-5.0) g/dL Crossmatch 09/07/21 Range/Units 07:06 RBC 2.44 L (4.30-5.90) m/uL Hgb 7.4 L (13.0-17.5) gm/dL Hct 22.3 L (39.0-53.0) % RDW 16.4 H (11.5-15.5) % Lymphocytes # 0.3 L (1.0-4.8) k/uL INR (<1.2) APTT (22.0-30.0) sec Fibrinogen (200-500) mg/dL D-Dimer (<0.60) mg/L FEU Chloride (98-107) mmol/L BUN (9-20) mg/dL Creatinine (0.66-1.25) mg/dL Glucose (74-99) mg/dL POC Glucose (mg/dL) (75-99) mg/dL Calcium (8.4-10.2) mg/dL Phosphorus (2.5-4.5) mg/dL Magnesium (1.6-2.3) mg/dL Erythropoietin (2.00-30.00) mIU/mL Total Protein (6.3-8.2) g/dL Albumin (3.5-5.0) g/dL Crossmatch Microbiology - Last 24 Hours (Table) 09/04/21 15:03 Anaerobic Culture - Preliminary Pleural Fluid 09/04/21 15:03 Gram Stain - Preliminary Pleural Fluid Body Fluid Culture - Preliminary Assessment and Plan Plan: Assessment: 1. Acute kidney injury secondary to ATN secondary to cardiorenal syndrome. Started on hemodialysis on 09/06/2021. Has permacath. Creatinine was up to 5.1 on September 06. 2. Chronic kidney disease stage IV secondary to diabetic kidney disease with baseline creatinine near 2.5. 3. Acute on chronic diastolic CHF with moderate tricuspid regurgitation and pulmonary hypertension. 4. Volume overload. 5. Malignant melanoma with metastasis. 6. Hypokalemia from poor intake and diuretics. Resolved. Became slightly hyperkalemic today due to bleed and acidosis. Normal today. 7. Chronic kidney disease mineral bone disease maintained on calcitriol. 8. Diabetes mellitus. Hypoglycemic on admission. 9. Hypertension with chronic kidney disease. Stable. 10. Pneumonia on antibiotics. Tested negative for COVID-19. 11. Metabolic acidosis secondary to acute kidney injury. On oral bicarbonate. 12. Recurrent pleural effusions. Has a left Pleurx catheter. 13. Anemia of chronic kidney disease maintained on Aranesp. Status post blood transfusions this admission. Also received IV DDAVP this admission. Plan: Second treatment of hemodialysis today and third treatment tomorrow. Stop IV Lasix. Add Demadex 40 mg once daily. Avoid nephrotoxins. Hold antihypertensives for systolic blood pressure less than 120. Outpatient dialysis to be set up by caser in.
--- NOTE | 2021-09-07 10:51 | P.PN ---
Subjective Progress Note Date: 09/07/21 Principal diagnosis: SOB, low blood glucose In follow-up today persistent serosanguineous fluid draining from the chest tube, pt reports no other bleeding, he has not had any transfusion reactions. He is starting dialysis Objective - Vital Signs Vital signs: Vital Signs Temp 99.5 F 09/07/21 08:00 Pulse 66 09/07/21 08:00 Resp 16 09/07/21 08:00 BP 123/60 09/07/21 08:00 Pulse Ox 95 09/07/21 08:00 Intake & Output 09/06/21 09/07/21 09/07/21 18:59 06:59 18:59 Intake Total 820 240 Output Total 600 1500 Balance 220 -1500 240 Weight 87.4 kg Intake: IV 50 Intake, IV Titration 150 Amount Desmopressin Acetate 24 50 mcg In Sodium Chloride 0. 9% 50 ml @ 200 mls/hr IVPB ONCE ONE Rx#: [id number] Piperacillin-Tazobactam 3 100 .375 gm In Sodium Chloride 0.9% 100 ml @ 25 mls/hr IVPB Q12H [facility] Rx# :[id number] Oral 240 Blood Product 620 Rc As-1 Unit 310 [id number] Rc As-1 Unit 310 [id number] Output: Chest Tube Drainage 500 Pleural Catheter Left 500 Drainage 600 Left Chest 600 Urine 0 0 Hemodialysis 1000 Other: Voiding Method Urinal Urinal # Voids 0 # Bowel Movements 1 - Constitutional General appearance: Present: average body habitus, cooperative, no acute distress - EENT Eyes: Present: anicteric sclerae, EOMI ENT: Present: hearing grossly normal - Respiratory Details: respirations even and unlabored, left chest tube serous sanguinous drainage visualized - Integumentary Integumentary: Present: pale - Neurologic Neurologic: Present: CNII-XII intact - Musculoskeletal Musculoskeletal: Present: strength equal bilaterally - Psychiatric Psychiatric: Present: A&O x's 3, appropriate affect, intact judgment & insight - Labs CBC & Chem 7: 09/07/21 07:06 09/07/21 07:06 Labs: Abnormal Lab Results - Last 24 Hours (Table) 09/02/21 09/05/21 09/06/21 Range/Units 11:45 16:29 09:37 RBC (4.30-5.90) m/uL Hgb (13.0-17.5) gm/dL Hct (39.0-53.0) % RDW (11.5-15.5) % Lymphocytes # (1.0-4.8) k/uL INR (<1.2) APTT (22.0-30.0) sec Fibrinogen (200-500) mg/dL D-Dimer (<0.60) mg/L FEU Chloride (98-107) mmol/L BUN (9-20) mg/dL Creatinine (0.66-1.25) mg/dL Glucose (74-99) mg/dL POC Glucose (mg/dL) (75-99) mg/dL Calcium (8.4-10.2) mg/dL Phosphorus (2.5-4.5) mg/dL Magnesium (1.6-2.3) mg/dL Erythropoietin 79.17 H (2.00-30.00) mIU/mL Total Protein (6.3-8.2) g/dL Albumin (3.5-5.0) g/dL Crossmatch See Detail See Detail 09/06/21 09/06/21 09/06/21 Range/Units 12:07 16:33 19:33 RBC (4.30-5.90) m/uL Hgb (13.0-17.5) gm/dL Hct (39.0-53.0) % RDW (11.5-15.5) % Lymphocytes # (1.0-4.8) k/uL INR 1.2 H (<1.2) APTT 33.6 H (22.0-30.0) sec Fibrinogen 620 H (200-500) mg/dL D-Dimer 4.24 H (<0.60) mg/L FEU Chloride (98-107) mmol/L BUN (9-20) mg/dL Creatinine (0.66-1.25) mg/dL Glucose (74-99) mg/dL POC Glucose (mg/dL) 107 H 108 H (75-99) mg/dL Calcium (8.4-10.2) mg/dL Phosphorus (2.5-4.5) mg/dL Magnesium (1.6-2.3) mg/dL Erythropoietin (2.00-30.00) mIU/mL Total Protein (6.3-8.2) g/dL Albumin (3.5-5.0) g/dL Crossmatch 09/06/21 09/07/21 09/07/21 Range/Units 20:11 06:00 07:06 RBC (4.30-5.90) m/uL Hgb (13.0-17.5) gm/dL Hct (39.0-53.0) % RDW (11.5-15.5) % Lymphocytes # (1.0-4.8) k/uL INR (<1.2) APTT (22.0-30.0) sec Fibrinogen (200-500) mg/dL D-Dimer (<0.60) mg/L FEU Chloride 108 H (98-107) mmol/L BUN 85 H (9-20) mg/dL Creatinine 4.28 H (0.66-1.25) mg/dL Glucose 224 H (74-99) mg/dL POC Glucose (mg/dL) 138 H 246 H (75-99) mg/dL Calcium 7.8 L (8.4-10.2) mg/dL Phosphorus 7.0 H (2.5-4.5) mg/dL Magnesium 2.4 H (1.6-2.3) mg/dL Erythropoietin (2.00-30.00) mIU/mL Total Protein 4.6 L (6.3-8.2) g/dL Albumin 2.1 L (3.5-5.0) g/dL Crossmatch 09/07/21 Range/Units 07:06 RBC 2.44 L (4.30-5.90) m/uL Hgb 7.4 L (13.0-17.5) gm/dL Hct 22.3 L (39.0-53.0) % RDW 16.4 H (11.5-15.5) % Lymphocytes # 0.3 L (1.0-4.8) k/uL INR (<1.2) APTT (22.0-30.0) sec Fibrinogen (200-500) mg/dL D-Dimer (<0.60) mg/L FEU Chloride (98-107) mmol/L BUN (9-20) mg/dL Creatinine (0.66-1.25) mg/dL Glucose (74-99) mg/dL POC Glucose (mg/dL) (75-99) mg/dL Calcium (8.4-10.2) mg/dL Phosphorus (2.5-4.5) mg/dL Magnesium (1.6-2.3) mg/dL Erythropoietin (2.00-30.00) mIU/mL Total Protein (6.3-8.2) g/dL Albumin (3.5-5.0) g/dL Crossmatch Microbiology - Last 24 Hours (Table) 09/04/21 15:03 Anaerobic Culture - Preliminary Pleural Fluid 09/04/21 15:03 Gram Stain - Preliminary Pleural Fluid Body Fluid Culture - Preliminary - Imaging and Cardiology Chest x-ray: report reviewed Assessment and Plan (1) Anemia Narrative/Plan: Multifactorial. CKD, being seen by Nephrology, starting dialysis, on epo supplementation DIC and hemolysis workup negative. DDAVP has been given for bleeding. Patient is status post 4 units of packed red blood cells. Hemoglobin is stable today. Surgery has been consulted, pending Surgeon review of case for possible endoscopy. Patient has persistent serosanguineous drainage from chest tube. Patient states that previously the drainage was clear. Currently pending cytology on pleural fluid. Has known malignancy in the lungs. Anticoagulation for DVT and PE has been held secondary to acute bleeding. Current Visit: Yes Status: Acute Priority: High Code(s): D64.9 - ANEMIA, UNSPECIFIED SNOMED Code(s): 541696524 (2) DVT (deep venous thrombosis) Current Visit: Yes Status: Acute Priority: High Code(s): I82.409 - ACUTE EMBOLISM AND THOMBOS UNSP DEEP VN UNSP LOWER EXTREMITY SNOMED Code(s): 065315026 (3) Pulmonary embolism Current Visit: Yes Status: Acute Priority: High Code(s): I26.99 - OTHER PULMONARY EMBOLISM WITHOUT ACUTE COR PULMONALE SNOMED Code(s): 34216627 (4) Metastatic melanoma Narrative/Plan: Patient will return to his treating Oncologist upon discharge Current Visit: Yes Status: Chronic Priority: High Code(s): C79.9 - SECONDARY MALIGNANT NEOPLASM OF UNSPECIFIED SITE SNOMED Code(s): 358776947 Plan: Continue to hold anticoagulation for now secondary to acute bleeding. Hemoglobin stable today after 1 unit yesterday. CBC daily with transfusions when necessary for hemoglobin less than 7. Doc statement: I have seen and examined patient, performed H&P, developed impression and plan of care. Discussed with dictator. Agree with dictation, documented as a scribe
[2021-09-07 11:50] LABS: Glucose,Whole Blood 221 mg/dL (75-99)
--- NOTE | 2021-09-07 12:00 | P.PN ---
Subjective Progress Note Date: 09/07/21 HISTORY OF PRESENT ILLNESS: This is a 71-year-old male who sees Dr. Xiong in the office. Patient is admitted to the hospital secondary to CHF, shortness of breath, and atrial fibrillation. Patient had an echocardiogram completed in July 2021 revealing ejection fraction 55-60%. Repeat echocardiogram is pending. Patient currently denies chest pain or pressure. He denies shortness of breath. Telemetry reveals sinus mechanism. Patient is not on anticoagulation secondary to a history of GI bleed per internal medicine's notes. The patient received a one-time dose of Lasix per nephrology. Creatinine today 3.86. 08/29/2021 Patient examined this morning at the bedside. He denies chest pain or pressure. Denies shortness of breath. He remains on 6L NC with oxygen saturations greater than 92%. Telemetry reveals sinus mechanism. Creatinine 4.04. Nephrology following. Repeat echo revealed EF 55-60%. 08/30/2021 Patient examined this morning at the bedside. He denies chest pain or pressure. Denies shortness of breath. He remains on 6L NC with oxygen saturations greater than 92%. Blood pressure 144/65. Patient underwent right lower extremity Doppler revealing lack of compression and thrombus within the left popliteal vein compatible with DVT although acute DVT cannot be excluded as does appear to be improved from prior exam of 2018 suggesting chronic component. VQ scan performed revealing high probability for pulmonary embolism. Patient was started on IV heparin per internal medicine 08/31/2021 Patient examined this morning. He is sitting up in the chair. He denies chest pain or pressure. Denies shortness of breath. He remains on IV heparin. Plan is to transition to Eliquis at discharge. Vital signs are stable. Creatinine 3.99. BUN 99. 09/01/2021 Patient examined this morning at the bedside. Patient denies chest pain or pressure. He denies shortness of breath. He has been transitioned to Eliquis. Telemetry reveals sinus mechanism. Blood pressure 167/79. BUN 101. Creatinine 3.88. 09/06/2021 Patient examined this morning at the bedside. Patient denies chest pain or pressure. Denies SOB. He his s/p right thoracentesis with removal of 1750 mL. He also had 1 L of fluid drained yesterday from his left-sided Pleurx catheter. Hemoglobin today 6.1. Anticoagulation remains on hold. Creatinine remains elevated at 5.12. 09/07/2021 Patient examined this morning at the bedside. Patient denies chest pain or pressure. Denies SOB. He was started on hemodialysis yesterday. He is to receive hemodialysis again today. His IV Lasix was stopped per nephrology and he was started on Demadex. Creatinine 4.28 today. Blood pressure 123/60. Telemetry reveals sinus mechanism with a heart rate in the 60s to 70s. He is afebrile. He is on 3 L nasal cannula with oxygen saturations greater then 92% hemoglobin 7.4. Patient has serosanguineous drainage from left pleurx catheter which is currently connected to an [place] system. 1L was drained yesterday. PHYSICAL EXAM: VITAL SIGNS: Reviewed. GENERAL: Well-developed in no acute distress. NECK: Supple. No JVD or thyromegaly LUNGS: Respirations even and unlabored. Lungs diminished to auscultation bilaterally. HEART: Regular rate and rhythm. S1 and S2 heard. EXTREMITIES: Normal range of motion. No clubbing or cyanosis. Peripheral pulses intact. Trace lower extremity edema ASSESSMENT: Dyspnea Pneumonia Pulmonary embolism Acute exacerbation of chronic diastolic congestive heart failure, ejection fraction 55-60% New-onset paroxysmal atrial fibrillation, currently maintaining sinus mechanism History of GI bleed Metastatic melanoma with metastasis to the lung and lymph nodes Recurrent pleural effusion with pleural cath Diabetes Hypertension Hyperlipidemia History of Covid Coronary artery disease with previous CABG and PCI Acute on chronic kidney disease History of DVT PLAN: Continue current cardiac medications Monitor hemoglobin. Eliquis on hold. Monitor kidney function. Nephrology following. Patient to undergo dialysis today. We will sign off. Please reconsult if needed. Nurse practitioner note has been reviewed by physician. Signing provider agrees with the documented findings, assessment, and plan of care. Objective - Vital Signs Vital signs: Vital Signs Temp 99.5 F 09/07/21 08:00 Pulse 66 09/07/21 08:00 Resp 16 09/07/21 08:00 BP 123/60 09/07/21 08:00 Pulse Ox 95 09/07/21 08:00 Intake & Output 09/06/21 09/07/21 09/07/21 18:59 06:59 18:59 Intake Total 820 240 Output Total 600 1500 Balance 220 -1500 240 Weight 87.4 kg Intake: IV 50 Intake, IV Titration 150 Amount Desmopressin Acetate 24 50 mcg In Sodium Chloride 0. 9% 50 ml @ 200 mls/hr IVPB ONCE ONE Rx#: [id number] Piperacillin-Tazobactam 3 100 .375 gm In Sodium Chloride 0.9% 100 ml @ 25 mls/hr IVPB Q12H [facility] Rx# :[id number] Oral 240 Blood Product 620 Rc As-1 Unit 310 [id number] Rc As-1 Unit 310 [id number] Output: Chest Tube Drainage 500 Pleural Catheter Left 500 Drainage 600 Left Chest 600 Urine 0 0 Hemodialysis 1000 Other: Voiding Method Urinal Urinal Urinal # Voids 0 # Bowel Movements 1 - Labs CBC & Chem 7: 09/08/21 07:44 09/07/21 07:06 Labs: Abnormal Lab Results - Last 24 Hours (Table) 09/02/21 09/05/21 09/06/21 Range/Units 11:45 16:29 09:37 RBC (4.30-5.90) m/uL Hgb (13.0-17.5) gm/dL Hct (39.0-53.0) % RDW (11.5-15.5) % Lymphocytes # (1.0-4.8) k/uL INR (<1.2) APTT (22.0-30.0) sec Fibrinogen (200-500) mg/dL D-Dimer (<0.60) mg/L FEU Chloride (98-107) mmol/L BUN (9-20) mg/dL Creatinine (0.66-1.25) mg/dL Glucose (74-99) mg/dL POC Glucose (mg/dL) (75-99) mg/dL Calcium (8.4-10.2) mg/dL Phosphorus (2.5-4.5) mg/dL Magnesium (1.6-2.3) mg/dL Erythropoietin 79.17 H (2.00-30.00) mIU/mL Total Protein (6.3-8.2) g/dL Albumin (3.5-5.0) g/dL Crossmatch See Detail See Detail 09/06/21 09/06/21 09/06/21 Range/Units 12:07 16:33 19:33 RBC (4.30-5.90) m/uL Hgb (13.0-17.5) gm/dL Hct (39.0-53.0) % RDW (11.5-15.5) % Lymphocytes # (1.0-4.8) k/uL INR 1.2 H (<1.2) APTT 33.6 H (22.0-30.0) sec Fibrinogen 620 H (200-500) mg/dL D-Dimer 4.24 H (<0.60) mg/L FEU Chloride (98-107) mmol/L BUN (9-20) mg/dL Creatinine (0.66-1.25) mg/dL Glucose (74-99) mg/dL POC Glucose (mg/dL) 107 H 108 H (75-99) mg/dL Calcium (8.4-10.2) mg/dL Phosphorus (2.5-4.5) mg/dL Magnesium (1.6-2.3) mg/dL Erythropoietin (2.00-30.00) mIU/mL Total Protein (6.3-8.2) g/dL Albumin (3.5-5.0) g/dL Crossmatch 09/06/21 09/07/21 09/07/21 Range/Units 20:11 06:00 07:06 RBC (4.30-5.90) m/uL Hgb (13.0-17.5) gm/dL Hct (39.0-53.0) % RDW (11.5-15.5) % Lymphocytes # (1.0-4.8) k/uL INR (<1.2) APTT (22.0-30.0) sec Fibrinogen (200-500) mg/dL D-Dimer (<0.60) mg/L FEU Chloride 108 H (98-107) mmol/L BUN 85 H (9-20) mg/dL Creatinine 4.28 H (0.66-1.25) mg/dL Glucose 224 H (74-99) mg/dL POC Glucose (mg/dL) 138 H 246 H (75-99) mg/dL Calcium 7.8 L (8.4-10.2) mg/dL Phosphorus 7.0 H (2.5-4.5) mg/dL Magnesium 2.4 H (1.6-2.3) mg/dL Erythropoietin (2.00-30.00) mIU/mL Total Protein 4.6 L (6.3-8.2) g/dL Albumin 2.1 L (3.5-5.0) g/dL Crossmatch 09/07/21 09/07/21 Range/Units 07:06 11:48 RBC 2.44 L (4.30-5.90) m/uL Hgb 7.4 L (13.0-17.5) gm/dL Hct 22.3 L (39.0-53.0) % RDW 16.4 H (11.5-15.5) % Lymphocytes # 0.3 L (1.0-4.8) k/uL INR (<1.2) APTT (22.0-30.0) sec Fibrinogen (200-500) mg/dL D-Dimer (<0.60) mg/L FEU Chloride (98-107) mmol/L BUN (9-20) mg/dL Creatinine (0.66-1.25) mg/dL Glucose (74-99) mg/dL POC Glucose (mg/dL) 221 H (75-99) mg/dL Calcium (8.4-10.2) mg/dL Phosphorus (2.5-4.5) mg/dL Magnesium (1.6-2.3) mg/dL Erythropoietin (2.00-30.00) mIU/mL Total Protein (6.3-8.2) g/dL Albumin (3.5-5.0) g/dL Crossmatch Microbiology - Last 24 Hours (Table) 09/04/21 15:03 Anaerobic Culture - Preliminary Pleural Fluid 09/04/21 15:03 Gram Stain - Preliminary Pleural Fluid Body Fluid Culture - Preliminary
--- NOTE | 2021-09-07 12:01 | P.PN ---
<Vinita Pierce - Last Filed: 09/07/21 11:51> Subjective Progress Note Date: 09/07/21 CHIEF COMPLAINT: Hypoglycemia and altered mental status HISTORY OF PRESENT ILLNESS: Surgical service is following regards to patient's anemia. He did receive a unit of blood yesterday hemoglobin has gone up from 6.1-7.4. Denies any blood in his stools. Denies any abdominal pain. His chest tube drainage is sanguinous. His Eliquis is currently on hold. Patient lying in bed comfortably. Afebrile. Currently on 3 L satting at 95% WBC 7.8 hemoglobin 7.4 platelets 193 creatinine 4.28 patient did start hemodialysis yesterday PHYSICAL EXAM: VITAL SIGNS: Reviewed. GENERAL: Well-developed in no acute distress. HEENT: No sclera icterus. Extraocular movements grossly intact. Moist buccal mucosa. Head is atraumatic, normocephalic. ABDOMEN: Soft. Nondistended. Nontender. NEUROLOGIC: Alert and oriented. Cranial nerves II through XII grossly intact. ASSESSMENT: 1. Anemia 2. Metastatic melanoma with metastases to the lung 3. Right pleural effusion requiring thoracentesis 4. Left pleural effusion with Pleurx catheter 5. Acute kidney injury starting hemodialysis 6. History of DVT and PE 7. Paroxysmal atrial fibrillation PLAN: -Further recommendations forthcoming per surgeon regarding possible EGD and colo noscopy during this hospitalization -Continue supportive care -Hold Eliquis -Dr. Peck did speak with oncology. If anticoagulation needs to be held then they advised IVC filter placement. Physician [employer] note has been reviewed by physician. Signing provider agrees with the documented findings, assessment, and plan of care. Objective - Vital Signs Vital signs: Vital Signs Temp 99.5 F 09/07/21 08:00 Pulse 66 09/07/21 08:00 Resp 16 09/07/21 08:00 BP 123/60 09/07/21 08:00 Pulse Ox 95 09/07/21 08:00 Intake & Output 09/06/21 09/07/21 09/07/21 18:59 06:59 18:59 Intake Total 820 240 Output Total 600 1500 Balance 220 -1500 240 Weight 87.4 kg Intake: IV 50 Intake, IV Titration 150 Amount Desmopressin Acetate 24 50 mcg In Sodium Chloride 0. 9% 50 ml @ 200 mls/hr IVPB ONCE ONE Rx#: [id number] Piperacillin-Tazobactam 3 100 .375 gm In Sodium Chloride 0.9% 100 ml @ 25 mls/hr IVPB Q12H [facility] Rx# :[id number] Oral 240 Blood Product 620 Rc As-1 Unit 310 [id number] Rc As-1 Unit 310 [id number] Output: Chest Tube Drainage 500 Pleural Catheter Left 500 Drainage 600 Left Chest 600 Urine 0 0 Hemodialysis 1000 Other: Voiding Method Urinal Urinal Urinal # Voids 0 # Bowel Movements 1 - Labs CBC & Chem 7: 09/07/21 07:06 09/07/21 07:06 Labs: Abnormal Lab Results - Last 24 Hours (Table) 09/02/21 09/05/21 09/06/21 Range/Units 11:45 16:29 09:37 RBC (4.30-5.90) m/uL Hgb (13.0-17.5) gm/dL Hct (39.0-53.0) % RDW (11.5-15.5) % Lymphocytes # (1.0-4.8) k/uL INR (<1.2) APTT (22.0-30.0) sec Fibrinogen (200-500) mg/dL D-Dimer (<0.60) mg/L FEU Chloride (98-107) mmol/L BUN (9-20) mg/dL Creatinine (0.66-1.25) mg/dL Glucose (74-99) mg/dL POC Glucose (mg/dL) (75-99) mg/dL Calcium (8.4-10.2) mg/dL Phosphorus (2.5-4.5) mg/dL Magnesium (1.6-2.3) mg/dL Erythropoietin 79.17 H (2.00-30.00) mIU/mL Total Protein (6.3-8.2) g/dL Albumin (3.5-5.0) g/dL Crossmatch See Detail See Detail 09/06/21 09/06/21 09/06/21 Range/Units 12:07 16:33 19:33 RBC (4.30-5.90) m/uL Hgb (13.0-17.5) gm/dL Hct (39.0-53.0) % RDW (11.5-15.5) % Lymphocytes # (1.0-4.8) k/uL INR 1.2 H (<1.2) APTT 33.6 H (22.0-30.0) sec Fibrinogen 620 H (200-500) mg/dL D-Dimer 4.24 H (<0.60) mg/L FEU Chloride (98-107) mmol/L BUN (9-20) mg/dL Creatinine (0.66-1.25) mg/dL Glucose (74-99) mg/dL POC Glucose (mg/dL) 107 H 108 H (75-99) mg/dL Calcium (8.4-10.2) mg/dL Phosphorus (2.5-4.5) mg/dL Magnesium (1.6-2.3) mg/dL Erythropoietin (2.00-30.00) mIU/mL Total Protein (6.3-8.2) g/dL Albumin (3.5-5.0) g/dL Crossmatch 09/06/21 09/07/21 09/07/21 Range/Units 20:11 06:00 07:06 RBC (4.30-5.90) m/uL Hgb (13.0-17.5) gm/dL Hct (39.0-53.0) % RDW (11.5-15.5) % Lymphocytes # (1.0-4.8) k/uL INR (<1.2) APTT (22.0-30.0) sec Fibrinogen (200-500) mg/dL D-Dimer (<0.60) mg/L FEU Chloride 108 H (98-107) mmol/L BUN 85 H (9-20) mg/dL Creatinine 4.28 H (0.66-1.25) mg/dL Glucose 224 H (74-99) mg/dL POC Glucose (mg/dL) 138 H 246 H (75-99) mg/dL Calcium 7.8 L (8.4-10.2) mg/dL Phosphorus 7.0 H (2.5-4.5) mg/dL Magnesium 2.4 H (1.6-2.3) mg/dL Erythropoietin (2.00-30.00) mIU/mL Total Protein 4.6 L (6.3-8.2) g/dL Albumin 2.1 L (3.5-5.0) g/dL Crossmatch 09/07/21 09/07/21 Range/Units 07:06 11:48 RBC 2.44 L (4.30-5.90) m/uL Hgb 7.4 L (13.0-17.5) gm/dL Hct 22.3 L (39.0-53.0) % RDW 16.4 H (11.5-15.5) % Lymphocytes # 0.3 L (1.0-4.8) k/uL INR (<1.2) APTT (22.0-30.0) sec Fibrinogen (200-500) mg/dL D-Dimer (<0.60) mg/L FEU Chloride (98-107) mmol/L BUN (9-20) mg/dL Creatinine (0.66-1.25) mg/dL Glucose (74-99) mg/dL POC Glucose (mg/dL) 221 H (75-99) mg/dL Calcium (8.4-10.2) mg/dL Phosphorus (2.5-4.5) mg/dL Magnesium (1.6-2.3) mg/dL Erythropoietin (2.00-30.00) mIU/mL Total Protein (6.3-8.2) g/dL Albumin (3.5-5.0) g/dL Crossmatch Microbiology - Last 24 Hours (Table) 09/04/21 15:03 Anaerobic Culture - Preliminary Pleural Fluid 09/04/21 15:03 Gram Stain - Preliminary Pleural Fluid Body Fluid Culture - Preliminary <Charles Peck - Last Filed: 09/07/21 15:03> Subjective Patient has no new complaints. Spoke with oncology yesterday and this was relayed to the patient today. Options of upper and lower endoscopy discussed. He will consider. Will put on clear liquid diet for tomorrow in case we need to begin bowel prep tomorrow for upper and lower scope on Saturday. Objective - Vital Signs Vital signs: Vital Signs Temp 99.5 F 09/07/21 08:00 Pulse 62 09/07/21 12:00 Resp 16 09/07/21 12:00 BP 114/50 09/07/21 12:00 Pulse Ox 95 09/07/21 08:00 Intake & Output 09/06/21 09/07/21 09/07/21 18:59 06:59 18:59 Intake Total 820 240 Output Total 600 1500 Balance 220 -1500 240 Weight 87.4 kg Intake: IV 50 Intake, IV Titration 150 Amount Desmopressin Acetate 24 50 mcg In Sodium Chloride 0. 9% 50 ml @ 200 mls/hr IVPB ONCE ONE Rx#: [id number] Piperacillin-Tazobactam 3 100 .375 gm In Sodium Chloride 0.9% 100 ml @ 25 mls/hr IVPB Q12H [facility] Rx# :[id number] Oral 240 Blood Product 620 Rc As-1 Unit 310 [id number] Rc As-1 Unit 310 [id number] Output: Chest Tube Drainage 500 Pleural Catheter Left 500 Drainage 600 Left Chest 600 Urine 0 0 Hemodialysis 1000 Other: Voiding Method Urinal Urinal Urinal # Voids 0 # Bowel Movements 1 - Labs CBC & Chem 7: 09/07/21 07:06 09/07/21 07:06 Labs: Abnormal Lab Results - Last 24 Hours (Table) 09/05/21 09/06/21 09/06/21 Range/Units 16:29 09:37 16:33 RBC (4.30-5.90) m/uL Hgb (13.0-17.5) gm/dL Hct (39.0-53.0) % RDW (11.5-15.5) % Lymphocytes # (1.0-4.8) k/uL INR (<1.2) APTT (22.0-30.0) sec Fibrinogen (200-500) mg/dL D-Dimer (<0.60) mg/L FEU Chloride (98-107) mmol/L BUN (9-20) mg/dL Creatinine (0.66-1.25) mg/dL Glucose (74-99) mg/dL POC Glucose (mg/dL) 108 H (75-99) mg/dL Calcium (8.4-10.2) mg/dL Phosphorus (2.5-4.5) mg/dL Magnesium (1.6-2.3) mg/dL Erythropoietin 79.17 H (2.00-30.00) mIU/mL Total Protein (6.3-8.2) g/dL Albumin (3.5-5.0) g/dL Crossmatch See Detail 09/06/21 09/06/21 09/07/21 Range/Units 19:33 20:11 06:00 RBC (4.30-5.90) m/uL Hgb (13.0-17.5) gm/dL Hct (39.0-53.0) % RDW (11.5-15.5) % Lymphocytes # (1.0-4.8) k/uL INR 1.2 H (<1.2) APTT 33.6 H (22.0-30.0) sec Fibrinogen 620 H (200-500) mg/dL D-Dimer 4.24 H (<0.60) mg/L FEU Chloride (98-107) mmol/L BUN (9-20) mg/dL Creatinine (0.66-1.25) mg/dL Glucose (74-99) mg/dL POC Glucose (mg/dL) 138 H 246 H (75-99) mg/dL Calcium (8.4-10.2) mg/dL Phosphorus (2.5-4.5) mg/dL Magnesium (1.6-2.3) mg/dL Erythropoietin (2.00-30.00) mIU/mL Total Protein (6.3-8.2) g/dL Albumin (3.5-5.0) g/dL Crossmatch 09/07/21 09/07/21 09/07/21 Range/Units 07:06 07:06 11:48 RBC 2.44 L (4.30-5.90) m/uL Hgb 7.4 L (13.0-17.5) gm/dL Hct 22.3 L (39.0-53.0) % RDW 16.4 H (11.5-15.5) % Lymphocytes # 0.3 L (1.0-4.8) k/uL INR (<1.2) APTT (22.0-30.0) sec Fibrinogen (200-500) mg/dL D-Dimer (<0.60) mg/L FEU Chloride 108 H (98-107) mmol/L BUN 85 H (9-20) mg/dL Creatinine 4.28 H (0.66-1.25) mg/dL Glucose 224 H (74-99) mg/dL POC Glucose (mg/dL) 221 H (75-99) mg/dL Calcium 7.8 L (8.4-10.2) mg/dL Phosphorus 7.0 H (2.5-4.5) mg/dL Magnesium 2.4 H (1.6-2.3) mg/dL Erythropoietin (2.00-30.00) mIU/mL Total Protein 4.6 L (6.3-8.2) g/dL Albumin 2.1 L (3.5-5.0) g/dL Crossmatch Microbiology - Last 24 Hours (Table) 09/04/21 15:03 Anaerobic Culture - Preliminary Pleural Fluid 09/04/21 15:03 Gram Stain - Preliminary Pleural Fluid Body Fluid Culture - Preliminary
[2021-09-07] MEDS: hydrALAZINE HCL 50 MG TAB PO SCH ×3 (12:59→21:20)
[2021-09-07] MEDS: amLODIPine 5 MG TAB PO SCH (12:59)
[2021-09-07] MEDS: PIPERACILLIN-TAZOBACTAM 3.375 GM in SODIUM CHLORIDE 0.9% 100 ML IVPB SCH ×2 (12:59→16:51)
--- NOTE | 2021-09-07 13:40 | P.PN ---
Subjective Progress Note Date: 09/07/21 Principal diagnosis: Acute hypoxic respiratory failure secondary to bilateral pleural effusions and history of metastatic melanoma. This is a 70-year-old gentleman patient of Dr. Wyatt Pereira. He has underlying history of diabetes mellitus type 2, CAD with prior CABG, CK D stage III, hypertension, history of melanoma was in remission until March when patient was noted to have met metastatic melanoma with metastases to the lung with enlarged lymph nodes currently on immunotherapy. Patient had recent covid infection in September, with acute kidney injury secondary to covid infection September 2020 and follow Ernie since then. Patient was again admitted in November 09 for 2 days for acute diastolic congestive heart failure secondary to withdrawal off diuretics due to worsening kidney function. He was seen in the ER in March 20 for shortness of breath secondary to metastatic melanoma to his lungs with bilateral pleural effusions. Patient has been getting frequent thoracentesis and underwent pigtail catheter placement in the left chest in April. He was initially getting fluid removed up to 1 L every day but currently patient is getting fluid removed up to 550 mL once a week, last one 2 days ago. Note that the patient's progress catheter was inserted at [facility]. His original thoracentesis was also done at [facility]. As mentioned, t here has been significant drop in the output from the Pleurx catheter. He is current hospitalization, another drainage was attempted and there was no output. Meanwhile, the patient's oxidation progressively been getting worse and the patient is currently at that is about 2 by nasal cannula. No fever. No chills. No hemoptysis to no pleurisy. No swelling lower extremities. A CAT scan of the chest was done at time of admission and the patient was found to have bilateral pleural effusion with basilar pulmonary infiltrates/atelectasis that increased compared to the old examination. There was also mediastinal lymphadenopathy. The Pleurx catheter was in the left chest. Left-sided pleural effusion itself seemed to be somewhat loculated. On today's evaluation, the patient has a white cell count 9.2 with a hemoglobin of 7.6. Has chronic kidney disease, stage IV with a creatinine of 3.7 and the BUN of 99. He has an anion gap metabolic acidosis with a bicarb level of 19. Currently, he is on IV Zosyn as an empiric antibiotic coverage. Reevaluated today on 09/04/2021, patient remains on the regular medical floor, his Pleurx catheter was addressed by surgery, patient received TPA into the Pleurx catheter, and apparently it's functioning again. I saw him today mostly for his right-sided pleural effusion, underwent thoracentesis, and I was able to drain over 1750 mL of serosanguineous fluid from the right pleural space. Patient felt better, postoperative chest x-ray showed complete resolution of his right-sided pleural effusion. Patient is doing well from the pulmonary pers pective, the fluid was drained was sent for different diagnostic studies. Patient is on 7 L nasal cannula, O2 sats is 96%. Electrolytes are normal BUN is 100 creatinine 4.04. And that being addressed by nephrology on the case. The patient is seen today 09/05/2021 in follow-up on the active care unit. He is currently sitting up in a chair at the bedside. Awake and alert in no acute distress. He is maintaining O2 saturations in the mid 90s on 6 L high flow nasal cannula. Afebrile. Currently hemodynamically stable. He is quite pale today. He did undergo a thoracentesis yesterday with 1750 MLS of serosanguineous fluid removed from the right chest. Yesterday TPA was infused into the left pigtail catheter was 600 bloody fluid removed. Today another 1000 mL of dark bloody fluid removed. The patient is dropping his hemoglobin. It was 6.1 this morning. He has received 2 units of packed red blood cells thus far. White count 19.9. Platelets 229. Sodium 139. Potassium 5.4. Creatinine 4.26. He remains on IV diuretics, antibiotics in the form of Zosyn. Eliquis remains on hold. On 09/06/2021 patient seen in follow-up on selective care unit, he is awake and alert, in no acute distress, he is currently resting in bed, on 4 L of oxygen, breathing fairly comfortable. He had right subclavian permacath inserted for hemodialysis today. He still has left-sided pigtail chest tube in place with bloody drainage out of the chest tube, it is to water seal, no evidence of air l eak. Today's chest x-ray shows bilateral airspace disease and left-sided pleural effusion stable in appearance. Patient is status post right-sided thoracentesiswith removal of 1750 ML of slightly serosanguineous fluid on 09/04/2021, and pleural fluid analysis revealed transudative fluid consistent with acute exacerbation of CHF. Patient was also new onset atrial fibrillation this admission, but currently his anticoagulation is on hold related to bloody drainage out of his left-sided chest tube. Today's hemoglobin is 6.1, and patient has been transfused with another unit of packed red blood cells. Patient had previously received IM and a blood on 09/02/2021. His d-dimer was elevated on yesterday's labs at 8.21, and patient was diagnosed with new acute left popliteal DVT. However he is not a candidate for anticoagulation right now, and we recommended placement of IVC filter. Pleural fluid cytology is still pending at this time. Vital signs have been stable, no worsening dyspnea, today's labs have been reviewed, his white blood cell count is slightly improved and is down to 16.8, his platelet count is 211, sodium is 136, potassium is 5.1, his BUN is 111, creatinine is 5.12. Patient remains on Zosyn. His pleural fluid culture showed diphtheroid species and this was on the pleural fluid collected on 09/01/2021, his right-sided pleural fluid collected on 09/04/2021 has shown no growth thus far. The patient is seen today 09/07/2021 in follow-up on the selective care unit. He is currently sitting up in a chair at the bedside. Awake and alert in no acute distress. He is down to 3 L nasal cannula with O2 saturation in the mid 90s. He had undergone hemodialysis via a new right subclavian permacath that was inserted yesterday. The plan is for hemodialysis today and again tomorrow. His Pleurx catheter has been placed to an atrium. Presently 1200 mL fluid had been drained since that time. Chest x-ray is showing improved left-sided consolidation and small effusion. Stable right perihilar infiltrate. He is status post 4 units of packed red blood cells this admission. Current hemoglobin 7.4. White count 7.8. Hemoglobin 7.4. Sodium 138. Potassium 4.5. Creatinine 4.28. Glucose 224. He remains on Zosyn. Oral diuretics. Liquids remains on hold. Objective - Vital Signs Vital signs: Vital Signs Temp 99.5 F 09/07/21 08:00 Pulse 62 09/07/21 12:00 Resp 16 09/07/21 12:00 BP 114/50 09/07/21 12:00 Pulse Ox 95 09/07/21 08:00 Intake & Output 09/06/21 09/07/21 09/07/21 18:59 06:59 18:59 Intake Total 820 240 Output Total 600 1500 Balance 220 -1500 240 Weight 87.4 kg Intake: IV 50 Intake, IV Titration 150 Amount Desmopressin Acetate 24 50 mcg In Sodium Chloride 0. 9% 50 ml @ 200 mls/hr IVPB ONCE ONE Rx#: [id number] Piperacillin-Tazobactam 3 100 .375 gm In Sodium Chloride 0.9% 100 ml @ 25 mls/hr IVPB Q12H [facility] Rx# :[id number] Oral 240 Blood Product 620 Rc As-1 Unit 310 [id number] Rc As-1 Unit 310 [id number] Output: Chest Tube Drainage 500 Pleural Catheter Left 500 Drainage 600 Left Chest 600 Urine 0 0 Hemodialysis 1000 Other: Voiding Method Urinal Urinal Urinal # Voids 0 # Bowel Movements 1 - Exam Gen: This is a pleasant 71-year-old male. On 3 L nasal cannula, in no distress. HEENT: Head is atraumatic, normocephalic. Pupils equal, round. Sclerae is anicteric. NECK: Supple. No JVD. No lymphadenopathy. No thyromegaly. LUNGS: Decreased breath sounds bilaterally with bilateral crackles in the bases. Pleural catheter in the left side attached to the pleural VAC. No intercostal retractions. HEART: Irregularly irregular rate and rhythm. No murmur. ABDOMEN: Soft. Bowel sounds are present. No masses. No tenderness. EXTREMITIES: Bilateral pedal edema. No calf tenderness. NEUROLOGICAL: Patient is awake, alert and oriented x3. Cranial nerves 2 through 12 are grossly intact. - Labs CBC & Chem 7: 09/07/21 07:06 09/07/21 07:06 Labs: Abnormal Lab Results - Last 24 Hours (Table) 09/02/21 09/05/21 09/06/21 Range/Units 11:45 16:29 09:37 RBC (4.30-5.90) m/uL Hgb (13.0-17.5) gm/dL Hct (39.0-53.0) % RDW (11.5-15.5) % Lymphocytes # (1.0-4.8) k/uL INR (<1.2) APTT (22.0-30.0) sec Fibrinogen (200-500) mg/dL D-Dimer (<0.60) mg/L FEU Chloride (98-107) mmol/L BUN (9-20) mg/dL Creatinine (0.66-1.25) mg/dL Glucose (74-99) mg/dL POC Glucose (mg/dL) (75-99) mg/dL Calcium (8.4-10.2) mg/dL Phosphorus (2.5-4.5) mg/dL Magnesium (1.6-2.3) mg/dL Erythropoietin 79.17 H (2.00-30.00) mIU/mL Total Protein (6.3-8.2) g/dL Albumin (3.5-5.0) g/dL Crossmatch See Detail See Detail 09/06/21 09/06/21 09/06/21 Range/Units 16:33 19:33 20:11 RBC (4.30-5.90) m/uL Hgb (13.0-17.5) gm/dL Hct (39.0-53.0) % RDW (11.5-15.5) % Lymphocytes # (1.0-4.8) k/uL INR 1.2 H (<1.2) APTT 33.6 H (22.0-30.0) sec Fibrinogen 620 H (200-500) mg/dL D-Dimer 4.24 H (<0.60) mg/L FEU Chloride (98-107) mmol/L BUN (9-20) mg/dL Creatinine (0.66-1.25) mg/dL Glucose (74-99) mg/dL POC Glucose (mg/dL) 108 H 138 H (75-99) mg/dL Calcium (8.4-10.2) mg/dL Phosphorus (2.5-4.5) mg/dL Magnesium (1.6-2.3) mg/dL Erythropoietin (2.00-30.00) mIU/mL Total Protein (6.3-8.2) g/dL Albumin (3.5-5.0) g/dL Crossmatch 09/07/21 09/07/21 09/07/21 Range/Units 06:00 07:06 07:06 RBC 2.44 L (4.30-5.90) m/uL Hgb 7.4 L (13.0-17.5) gm/dL Hct 22.3 L (39.0-53.0) % RDW 16.4 H (11.5-15.5) % Lymphocytes # 0.3 L (1.0-4.8) k/uL INR (<1.2) APTT (22.0-30.0) sec Fibrinogen (200-500) mg/dL D-Dimer (<0.60) mg/L FEU Chloride 108 H (98-107) mmol/L BUN 85 H (9-20) mg/dL Creatinine 4.28 H (0.66-1.25) mg/dL Glucose 224 H (74-99) mg/dL POC Glucose (mg/dL) 246 H (75-99) mg/dL Calcium 7.8 L (8.4-10.2) mg/dL Phosphorus 7.0 H (2.5-4.5) mg/dL Magnesium 2.4 H (1.6-2.3) mg/dL Erythropoietin (2.00-30.00) mIU/mL Total Protein 4.6 L (6.3-8.2) g/dL Albumin 2.1 L (3.5-5.0) g/dL Crossmatch 09/07/21 Range/Units 11:48 RBC (4.30-5.90) m/uL Hgb (13.0-17.5) gm/dL Hct (39.0-53.0) % RDW (11.5-15.5) % Lymphocytes # (1.0-4.8) k/uL INR (<1.2) APTT (22.0-30.0) sec Fibrinogen (200-500) mg/dL D-Dimer (<0.60) mg/L FEU Chloride (98-107) mmol/L BUN (9-20) mg/dL Creatinine (0.66-1.25) mg/dL Glucose (74-99) mg/dL POC Glucose (mg/dL) 221 H (75-99) mg/dL Calcium (8.4-10.2) mg/dL Phosphorus (2.5-4.5) mg/dL Magnesium (1.6-2.3) mg/dL Erythropoietin (2.00-30.00) mIU/mL Total Protein (6.3-8.2) g/dL Albumin (3.5-5.0) g/dL Crossmatch Microbiology - Last 24 Hours (Table) 09/04/21 15:03 Anaerobic Culture - Preliminary Pleural Fluid 09/04/21 15:03 Gram Stain - Preliminary Pleural Fluid Body Fluid Culture - Preliminary Assessment and Plan Assessment: 1 Acute hypoxic respiratory failure, multifactorial, but the patient clearly had bilateral pleural effusions possibly malignant unless for otherwise, history of pulmonary embolisms, history of pneumonia, and suspect some component of diastolic congestive heart failure. Cytology pending 2 Metastatic melanoma 3 New-onset atrial fibrillation 4 Acute kidney injury with acute tubular necrosis and history of chronic kidney disease stage IV, right subclavian Hemo-Cath placed and he received dialysis yesterday, plans for today and tomorrow 5 Recurrent pleural effusions had previous left sided Pleurx catheter placed by [facility], patient underwent right-sided thoracentesis 09/04/2021 and able to drain 1750 mL. 6 History of GI bleeding 7 Dyslipidemia 8 History of hypertension 9 Chronic anemia secondary to chronic renal disease 10 Acute anemia secondary to bloody effusions requiring 4 units of packed red blood cells so far this admission Plan: The patient was seen and evaluated today Chest x-ray and labs reviewed Remains on Zosyn Did receive hemodialysis yesterday, plans for today and tomorrow Hemoglobin stable Continue to monitor chest tube output We will continue to follow I, the cosigning physician, performed a history & physical examination of the patient. Lungs sounds with crackles in the bilateral bases. Maintaining good O2 saturations in the 90s on 3 L high flow nasal cannula. I discussed the assessment and plan of care with my nurse practitioner, Mai Malave. I attest to the above note as dictated by her.
--- NOTE | 2021-09-07 13:51 | CONS ---
CONSULTATION DATE OF SERVICE: 09/03/21 I have seen, examined, and agree with the midlevel's findings. MMODL / IJN: [id number] / -01
--- NOTE | 2021-09-07 14:21 | US ---
EXAMINATION TYPE: US venous doppler duplex LE DATE OF EXAM: 09/07/2021 2:03 PM COMPARISON: US 08/29/2021 CLINICAL HISTORY: EVAL PRE JOSE FILTER. Prior Left leg DVT and not on blood thinner now SIDE PERFORMED: Bilateral TECHNIQUE: The lower extremity deep venous system is examined utilizing real time linear array sonog rikki with graded compression, doppler sonography and color-flow sonography. VESSELS IMAGED: Common Femoral Vein Deep Femoral Vein Greater Saphenous Vein * Femoral Vein Popliteal Vein Small Saphenous Vein * Proximal Calf Veins (* superficial vessels) Right Leg: non occluding DVT distal Right Femoral Vein and into Right Popliteal Vein as wall echoes are seen, incomplete color filling is noted at iyer, with only partial vein compression noted at the se levels. Left Leg: non occluding DVT distal left Femoral Vein and into Left Popliteal Vein as wall echoes are seen, incomplete color filling is noted at iyer, with only partial vein compression noted at these levels. IMPRESSION: 1. Findings are positive for DVT within the femoral vein and popliteal vein bilaterally. See above.
--- NOTE | 2021-09-07 16:34 | P.PN ---
Subjective Progress Note Date: 09/07/21 History of present illness This is a 71-year-old gentleman patient of Dr. Wyatt Pereira. He has underlying history of diabetes mellitus type 2, CAD with prior CABG, CK D stage III, hypertension, history of melanoma was in remission until March when patient was noted to have metastatic melanoma with metastases to the lung with enlarged lymph nodes currently on immunotherapy. Patient had recent covid infection in September, with acute kidney injury secondary to covid infection September 2020 and follow Ernie since then. Patient was again admitted in November 09 for 2 days for acute diastolic congestive heart failure secondary to withdrawal off diuretics due to worsening kidney function. He was seen in the ER in March 20 for shortness of breath secondary to metastatic melanoma to his lungs with bilateral pleural effusions. Patient has been getting frequent thoracentesis an d underwent pigtail catheter placement in the left chest in April. He was initially getting fluid removed up to 1 L every day but currently patient is getting fluid removed up to 550 mL once a week, last one 2 days ago. Patient has noticed poor appetite and increased shortness of breath for the past 1 week. He had his Covid booster 6 days ago following which he went to [facility] to have a brain MRI and CT. He received his immunotherapy 3 days ago. He has not recovered since then. His noticed poor appetite increased weakness associated with cough and shortness of breath. Patient was found to have low blood sugar in the low 30s which came back to normal. EKG demonstrated atrial fibrillation In the ER patient is noted to be hypoxic and was placed on 5 L of high flow still saturating at 89%. Otherwise patient is afebrile pulse 66 respiratory rate 18 blood pressure 127/58. He had a leukocytosis of 11, hemoglobin 9.9 platelet 225, BUN 109 creatinine 3.59. Sodium 139 potassium 3.4 chloride 110 [place] 18 [place] [id number] Chest x-ray on 08/26 suggests cardiomegaly with small left pleural effusion R [id number] interstitial edema concerning for CHF exacerbation was noted. CT chest was obtained that showed bilateral pleural effusion with basilar pulmonary airspace infiltrates and atelectasis significantly increased compared to old exam with cardiomegaly and mediastinotomy edema but the similar to old exam. 08/28: Patient has been seen and followed by cardiology with recommendations to continue current medications. Echocardiogram has been obtained and report is pending. Patient is also followed by nephrology with recommendations to continue diuretics, discontinue Norvasc. Repeat chest x-ray reveals stable bibasilar right greater than left patchy and interstitial opacities with stable moderate cardiomegaly, trace left pleural effusion may be on the basis of multi focal pneumonia/atelectasis and/or heart failure. No pneumothorax. Patient has been afebrile, heart rate 62, blood pressure 126/66, pulse ox 94% on 6 L nasal cannula. Plan is to wean oxygen down. Repeat blood work reveals sodium 140, potassium 3.7, chloride 110, CO2 19, BUN 107, creatinine 3.86. Blood sugars are running mostly in the 300s this morning 133. Prandin 1 mg with meals added and Levemir increased to home dose of 35 units at bedtime. Patient has Albright catheter in place which we will have removed today and bladder scan postvoid. Home oxygen assessment to be done. 08/29: Patient is seen today on the cardiac stepdown unit. He is followed by nephrology with recommendations to maintain Albright catheter, avoid hypotension, nephro toxic agents and continue IV fluids at 50 ML's per hour. We have discontinued vancomycin. Patient has also been seen by cardiology. Patient is currently on Zosyn. VQ scan ordered to rule out pulmonary embolism due to ongoing hypoxia. Patient is requiring 6 L nasal cannula with pulse ox of 92%. He's been afebrile, heart rate 66, blood pressure 133/68. Repeat blood work reveals sodium 138, potassium 4.2, chloride 109, CO2 19, BUN 103 and creatinine 4.04. Blood sugars are running between 167 and 249.. Ultrasound of the right lower extremity revealed DVT but could not be determined if this was acute and suggest chronic component. Chest x-ray reveals heart failure underlying pneumonia not excluded. 08/30: Patient is currently on IV heparin for pulmonary embolism.patient does have history of lower extremity DVT which he states he completed course of anticoagulation. Discussed case with oncology and we will plan for eliquis, prescription is been sent to his pharmacy. Pneumonia has been ruled out and antibiotics will be discontinued. Patient has Albright catheter in place which will be discontinued today if okay with nephrology and check postvoid residual. The blood work reveals WBC 8.5, hemoglobin 8.0. BUN 107, creatinine 4.2, CO2 19. Patient has been seen by PT and OT with recommendations for home. 08/31: Albright Catheter was discontinued this morning and bladder scan is ordered for 1 PM. Patient has increased breath sounds on left-sided chest x-ray ordered today. Renal function is slightly improved from yesterday with BUN of 99 and creatinine 3.99. Hemoglobin 7.6. TSH is 2.740. Patient will be started on eliquis and heparin discontinued. She has been afebrile, heart rate 70, blood pressure 141/76, pulse ox 92% on 4 L nasal cannula. The patient may require home oxygen therapy and we will assess closer to discharge. Renal ultrasound revealed no hydronephrosis or nephrolithiasis. There is increased echogenicity of the renal cortex which can be sutured with chronic medical renal disease. Chest x-ray reveals correlate for heart failure otherwise diffuse pneumonia. Findings stable. 09/01: Patient has been afebrile, heart rate 69, blood pressure 167/79, pulse ox 91%. He is now on 7 L nasal cannula. Ultrasound of the chest will be done to evaluate pleural effusions. Patient was transitioned from heparin drip to eliquis yesterday and oncology wants him on eliquis for life. Patient continues to have lower extremity edema. Repeat blood work reveals BUN of 101, creatinine 3.88, CO2 of 20. Blood sugars are running between 130 and 182. We will ask for Dr. Suarez to evaluate for pneumonia. And patient started on Zosyn. Patient does have pleural cath in place which nurse tried to drain today but no output. 09/02: Hemoglobin this morning is 6.7 and patient will be transfused 1 unit of packed RBCs. Repeat blood work for tomorrow.Blood glucose ran between 100 and 180. One dose of IV Lasix ordered by nephrology. 09/03: Patient states that he has been sleeping in his chair because it is easier to breathe. He did require nonrebreather for a few hours during the night. We will order 1 dose of IV Lasix today 40 mg. He has been afebrile, heart rate 72, blood pressure 150/75 and pulse ox 93% on 9 L nasal cannula. Blood sugars have been running mostly between 9785 but only 68 this morning. Hemoglobin today is 7.6 after 1 unit of packed RBC dose infused yesterday. BUN 99 and creatinine 3.71. CO2 19. Patient is on sodium bicarb oral. He is followed closely by nephrology. Consult added for pulmonary medicine. 09/04: Cardiothoracic surgery drained half liter from Pleurx catheter on the left side and recommendations are for drainage on the right side. Interventional radiology added to perform this. At this time, plan is for Dr. Dee to do a right-sided thoracentesis on Saturday. We have transitioned patient off eliquis and onto heparin drip and this will need to be held 4 hours prior to procedure on Saturday. Patient has been afebrile, heart rate 70, blood pressur e 148/67, pulse ox 91% on 8 L nasal cannula. Repeat blood work reveals WBC 9.3, hemoglobin 7.4. INR is 1.3. BUN 100 and creatinine 4.04. Blood sugars are running between 89 and 209. Pleural fluid is showing diphtheroid species. 09/05 patient examined bedside. He appears much pale than yesterday. Patient nurse called to him in the morning suggesting of left chest pain. Chest x-ray was obtained that suggested progression of pleural effusion. Patient had 1 L of serosanguineous drainage from the left pleural cavity this morning. Thoracentesis of the right 1750 ml were removed on 09/[address] Reinoso. Labs reviewed suggestive WBC of 19.9 hemoglobin 6.1 hematocrit 18.2 platelet 229 sodium 139 potassium 5.4 BUN 101 creatinine 4.26. Vitals reviewed suggestive of 97.9 pulse 63 respiratory rate 16 blood pressure 102/47 on 6 L high flow. Patient received 2 units of PRBC for low hemoglobin. Repeat hemoglobin in the evening. Due to progression of renal dysfunction plan for renal replacement therapy tomorrow with placement of permacath with vascular surgery. Prandin discontinued Levemir reduced to 10 units as patient's continues to have hypoglycemia 09/06: Patient was scheduled for catheter placement today with vascular surgery for hemodialysis but this was canceled due to hemoglobin of 6.1. He is scheduled for 2 units of packed RBCs. 1 L of sanguinous fluid was removed from the left pleura catheter. Patient is denying having any chest pain. He is currently on 6 L nasal cannula with pulse ox 97%, afebrile, heart rate 70s, blood pressure 99/37. Other lab work today reveals WBC 16.8. BUN 111, creatinine 5.12. Blood sugars are in the 100 and teens. 09/07: Patient now has pleural catheter to suction with sanguineous drainage. Patient had dialysis catheter placed yesterday to the right subclavian by Dr. Brody and patient had first dialysis treatment 09/06. He is scheduled for repeat dialysis today. Patient states his breathing is okay. He is down to 3 L nasal cannula. Regarding discharge planning, patient states that he is planning to go home and lives at home with his . Contacted Dr. Brody regarding placing a Fernie filter which will be scheduled for tomorrow. Review Of Systems: Constitutional: No fever, no chills, no night sweats. No weight change. Reports weakness,Reports fatigue no lethargy. No daytime sleepiness. EENT: No headache. No blurred vision or double vision, no loss of vision. No loss of Hearing, no ringing in the ears, no dizziness. No nasal drainage or congestion. No epistaxis. No sore throat. Lungs: Reports shortness of breath, stable , occasional cough, no sputum production. No wheezing. Cardiovascular: No chest pain, no lower extremity edema. No palpitations. No paroxysmal nocturnal dyspnea. Reports orthopnea. No lightheadedness or dizziness. No syncopal episodes. Abdominal: No abdominal pain. No nausea, vomiting. No diarrhea. No constipation. No bloody or tarry stools.. No loss of appetite. Genitourinary: No dysuria, increased frequency, urgency. No urinary retention. Musculoskeletal: No myalgias. Reports muscle weakness, no gait dysfunction, no frequent falls. No back pain. No neck pain. Integumentary: No wounds, no lesions. No rash or pruritus. No unusual bruising. Neurologic: No aphasia. No facial droop. No change in mentation. No head injury. No headache. No paralysis. No paresthesia. Psychiatric: No depression. No anxiety. No mood swings. Endocrine: Noted abnormal blood sugars. No weight change. No excessive sweating or thirst. No cold intolerance. Physical exam Gen: This is a 71-year-old male. He is resting inreclinerppears to be comfortable. He is currently on O2 at 3 L. HEENT: Head is atraumatic, normocephalic. Pupils equal, round. Sclerae is anicteric. NECK: Supple. No JVD. No lymphadenopathy. No thyromegaly. LUNGS: Decreased breath sounds bilaterally with bilateral crackles in the bases. Pleural catheter in the left side. No intercostal retractions. HEART: Irregularly irregular rate and rhythm. No murmur. ABDOMEN: Soft. Bowel sounds are present. No masses. No tenderness. EXTREMITIES: Bilateral pedal edema. No calf tenderness. NEUROLOGICAL: Patient is awake, alert and oriented x3. Cranial nerves 2 through 12 are grossly intact. Assessment and plan Acute diastolic heart failure, ejection fraction 55-60% with severe concentric left ventricle hypertrophy and moderate to severe pulmonary hypertension moderate tricuspid regurgitation on October 2020. IV Lasix 40 mg daily. Monitor I&O and daily weights, also followed by cardiology. Acute hypoxic respiratory failure secondary to CHF exacerbation and bilateral pleural effusions, pulmonary embolism, pneumonia possible. Continue eliquis 10 mg twice daily for 10 days--HOLD WHILE WAITING FOR RIGHT THORACENTESIS and catheter placement. Continue Zosyn, consult with infectious disease appreciated. Consult added for pulmonary medicine. Acute kidney injury secondary to ATN with cardiorenal syndrome on chronic kidney disease stage IV secondary to diabetic kidney disease with baseline creatinine 2.5. Nephrology consult appreciated, Lasix 40 mg IV daily, avoid nephrotoxic agents, monitor renal function. Desmopressin 24 g 1 ordered for today by nephrology. Patient to have dialysis catheter placed by vascular surgery which was postponed due to anemia. New onset paroxysmal atrial fibrillation. Continue Coreg 12.5 twice a d, eliquis discontinued due to bloody pleural effusion. Fernie filter ordered. Dr. Brody is on consult and will place tomorrow. Metastatic melanoma with metastasis to the lung and lymph nodes enlargement. On immunotherapy, follows Dr. Umaña. Consult with oncology appreciated. Recurrent pleural effusion With pleural cath involving the left pleural cavity. Follows cardiothoracic surgeon at [facility]. cardiothoracic surgery consult appreciated. Hypoglycemia with history Diabetes mellitus type 2, hypoglycemia resolved. A1c 8.8. Levemir decreased to 10 units at bedtime, Prandin discontinued, Insulin sliding scale. Anemia of kidney disease with acute blood loss anemia secondary to pleural effusion. Patient is status post iron infusion, ordered 4 unit of packed RBCs. Continue Aranesp. CAD with prior CABG in the past, status post occlusive disease in the LAD, and diagonal branch. Continue aspirin, Coreg, Lipitor 80 mg daily Covid infection 19 on 10/18, Received Covid booster 1 week Uncontrolled hypertension. Coreg 12.5 mg twice daily, hydralazine 25 mg twice daily, Hyperlipidemia. Continue atorvastatin 80 mg daily History of GI bleed, none currently, was previously on Eliquis. Patient on aspirin only at admission. DVT prophylaxis. hold eliquis CODE STATUS full code DISCHARGE PLAN Home. Impression and plan of care have been directed as dictated by the signing physician. Marry Andre nurse practitioner acting as scribe for signing physician. Objective - Vital Signs Vital signs: Vital Signs Temp 99.5 F 09/07/21 08:00 Pulse 66 09/07/21 08:00 Resp 16 09/07/21 08:00 BP 123/60 09/07/21 08:00 Pulse Ox 95 09/07/21 08:00 Intake & Output 09/06/21 09/07/21 09/07/21 18:59 06:59 18:59 Intake Total 820 240 Output Total 600 1500 Balance 220 -1500 240 Weight 87.4 kg Intake: IV 50 Intake, IV Titration 150 Amount Desmopressin Acetate 24 50 mcg In Sodium Chloride 0. 9% 50 ml @ 200 mls/hr IVPB ONCE ONE Rx#: [id number] Piperacillin-Tazobactam 3 100 .375 gm In Sodium Chloride 0.9% 100 ml @ 25 mls/hr IVPB Q12H [facility] Rx# :[id number] Oral 240 Blood Product 620 Rc As-1 Unit 310 [id number] Rc As-1 Unit 310 [id number] Output: Chest Tube Drainage 500 Pleural Catheter Left 500 Drainage 600 Left Chest 600 Urine 0 0 Hemodialysis 1000 Other: Voiding Method Urinal Urinal Urinal # Voids 0 # Bowel Movements 1 - Labs CBC & Chem 7: 09/07/21 07:06 09/07/21 07:06 Labs: Abnormal Lab Results - Last 24 Hours (Table) 09/02/21 09/05/21 09/06/21 Range/Units 11:45 16:29 09:37 RBC (4.30-5.90) m/uL Hgb (13.0-17.5) gm/dL Hct (39.0-53.0) % RDW (11.5-15.5) % Lymphocytes # (1.0-4.8) k/uL INR (<1.2) APTT (22.0-30.0) sec Fibrinogen (200-500) mg/dL D-Dimer (<0.60) mg/L FEU Chloride (98-107) mmol/L BUN (9-20) mg/dL Creatinine (0.66-1.25) mg/dL Glucose (74-99) mg/dL POC Glucose (mg/dL) (75-99) mg/dL Calcium (8.4-10.2) mg/dL Phosphorus (2.5-4.5) mg/dL Magnesium (1.6-2.3) mg/dL Erythropoietin 79.17 H (2.00-30.00) mIU/mL Total Protein (6.3-8.2) g/dL Albumin (3.5-5.0) g/dL Crossmatch See Detail See Detail 09/06/21 09/06/21 09/06/21 Range/Units 16:33 19:33 20:11 RBC (4.30-5.90) m/uL Hgb (13.0-17.5) gm/dL Hct (39.0-53.0) % RDW (11.5-15.5) % Lymphocytes # (1.0-4.8) k/uL INR 1.2 H (<1.2) APTT 33.6 H (22.0-30.0) sec Fibrinogen 620 H (200-500) mg/dL D-Dimer 4.24 H (<0.60) mg/L FEU Chloride (98-107) mmol/L BUN (9-20) mg/dL Creatinine (0.66-1.25) mg/dL Glucose (74-99) mg/dL POC Glucose (mg/dL) 108 H 138 H (75-99) mg/dL Calcium (8.4-10.2) mg/dL Phosphorus (2.5-4.5) mg/dL Magnesium (1.6-2.3) mg/dL Erythropoietin (2.00-30.00) mIU/mL Total Protein (6.3-8.2) g/dL Albumin (3.5-5.0) g/dL Crossmatch 09/07/21 09/07/21 09/07/21 Range/Units 06:00 07:06 07:06 RBC 2.44 L (4.30-5.90) m/uL Hgb 7.4 L (13.0-17.5) gm/dL Hct 22.3 L (39.0-53.0) % RDW 16.4 H (11.5-15.5) % Lymphocytes # 0.3 L (1.0-4.8) k/uL INR (<1.2) APTT (22.0-30.0) sec Fibrinogen (200-500) mg/dL D-Dimer (<0.60) mg/L FEU Chloride 108 H (98-107) mmol/L BUN 85 H (9-20) mg/dL Creatinine 4.28 H (0.66-1.25) mg/dL Glucose 224 H (74-99) mg/dL POC Glucose (mg/dL) 246 H (75-99) mg/dL Calcium 7.8 L (8.4-10.2) mg/dL Phosphorus 7.0 H (2.5-4.5) mg/dL Magnesium 2.4 H (1.6-2.3) mg/dL Erythropoietin (2.00-30.00) mIU/mL Total Protein 4.6 L (6.3-8.2) g/dL Albumin 2.1 L (3.5-5.0) g/dL Crossmatch 09/07/21 Range/Units 11:48 RBC (4.30-5.90) m/uL Hgb (13.0-17.5) gm/dL Hct (39.0-53.0) % RDW (11.5-15.5) % Lymphocytes # (1.0-4.8) k/uL INR (<1.2) APTT (22.0-30.0) sec Fibrinogen (200-500) mg/dL D-Dimer (<0.60) mg/L FEU Chloride (98-107) mmol/L BUN (9-20) mg/dL Creatinine (0.66-1.25) mg/dL Glucose (74-99) mg/dL POC Glucose (mg/dL) 221 H (75-99) mg/dL Calcium (8.4-10.2) mg/dL Phosphorus (2.5-4.5) mg/dL Magnesium (1.6-2.3) mg/dL Erythropoietin (2.00-30.00) mIU/mL Total Protein (6.3-8.2) g/dL Albumin (3.5-5.0) g/dL Crossmatch Microbiology - Last 24 Hours (Table) 09/04/21 15:03 Anaerobic Culture - Preliminary Pleural Fluid 09/04/21 15:03 Gram Stain - Preliminary Pleural Fluid Body Fluid Culture - Preliminary
[2021-09-07 16:48] LABS: Glucose,Whole Blood 227 mg/dL (75-99)
--- NOTE | 2021-09-07 17:16 | CONS ---
CONSULTATION This is a 71-year-old gentleman who has a history of multiple medical issues and patient has history of melanoma and METS to the lungs. The patient has pleural effusion. The patient also has a DVT of both lower extremities involving the right femoral distally and popliteal and left femoral and popliteal. The patient is on Eliquis. Patient had a dropped significant hemoglobin because of bloody pleural effusion. Patient has been transfused twice. The patient also has been diagnosed with acute kidney injury. We put dialysis catheter having dialysis 3 times a week. I was consulted for placement of filter. PLAN: We will hold the Plavix and consent for filter placement and n.p.o. midnight. Risks and complications discussed with the patient. MMODL / IJN: [id number] /
[2021-09-07 20:34] LABS: Glucose,Whole Blood 190 mg/dL (75-99)
[2021-09-07] MEDS: INSULIN DETEMIR (LEVEMIR) 100 UNIT/ML SYR SQ SCH (21:37)
--- NOTE | 2021-09-08 01:04 | PN ---
PROGRESS NOTE DATE OF SERVICE: 09/07/2021 REASON FOR FOLLOWUP: Possible pneumonia. INTERVAL HISTORY: The patient is afebrile. The patient is breathing more comfortably. The patient denies having any chest pain. No worsening cough or sputum production. No abdominal pain, no diarrhea. PHYSICAL EXAMINATION: Blood pressure 139/62 with a pulse of 63, temperature of 98. He is 94% on 4 L nasal cannula. General description is an elderly male lying in bed in no distress. Respiratory system: Unlabored breathing, decreased intensity of breath sounds. No wheeze. Heart S1, S2. Regular rate and rhythm. Abdomen soft, no tenderness. LABS: Hemoglobin 7.4, white count 7.8, creatinine 4.28. DIAGNOSTIC IMPRESSION AND PLAN: Patient with malignant effusion with PleurX catheter status post thoracocentesis and chest tube placement. The fluid cultures currently pending. Patient is currently covered with Zosyn to continue for now while monitoring clinical course closely. Continue supportive care. MMODL / IJN: [id number] /
[2021-09-08 06:07] LABS: Glucose,Whole Blood 138 mg/dL (75-99)
[2021-09-08] MEDS: INSULIN ASPART (NovoLOG) 100 UNIT/ML VIAL SQ SCH ×3 (06:09→18:22)
[2021-09-08 08:20] LABS: Anisocytosis Slight; Basophils % (A) 0 %; Eosinophils # (A) 0.2 k/uL (0-0.7); Eosinophils % (A) 3 %; HCT 20.9 % (39.0-53.0); HGB 7.1 gm/dL (13.0-17.5); Hypochromasia Slight; Lymphocytes # (A) 0.4 k/uL (1.0-4.8); Lymphocytes % (A) 5 %; MCH 30.7 pg (25.0-35.0); MCHC 33.8 g/dL (31.0-37.0); MCV 90.7 fL (80.0-100.0); Mean Platelet Volume 7.4; Monocytes # (A) 0.5 k/uL (0-1.0); Monocytes % (A) 7 %; Neutrophils # (A) 5.5 k/uL (1.3-7.7); Neutrophils % (A) 81 %; Platelet Count 174 k/uL (150-450); Poikilocytosis Slight; RBC 2.31 m/uL (4.30-5.90); RDW 16.1 % (11.5-15.5); WBC 6.9 k/uL (3.8-10.6)
--- NOTE | 2021-09-08 08:49 | P.PN ---
Subjective Progress Note Date: 09/08/21 Principal diagnosis: Bilateral pleural effusions with left Pleurx catheter in place, new-onset atrial fibrillation, VQ scan showing a large mismatch defect involving the right apex and right upper lobe with large segmental mismatch defect indicating high probability for pulmonary embolus, anemia, leukocytosis. Previous medical history of hypertension, hyperlipidemia, insulin-dependent diabetes mellitus, acute on chronic diastolic congestive heart failure, coronary artery disease with previous PCI and coronary artery bypass grafting surgery 3 vessels, chronic kidney disease stage III, COVID-19 infection in September 2020, lifetime nonsmoker and history of melanoma in remission until March 2021, with metastasis to the lung with enlarged lymph nodes, currently being treated with immunotherapy. Status post day #4 right-sided thoracentesis with 1750 mL of slightly serosan guineous pleural fluid drained by Dr. Reinoso. The patient was seen in its in this morning of the cardiac stepdown unit sitting up in bed in no acute distress. States his breathing is about the same, denies any pain. Left-sided Pleurx catheter remains in place connected to atrium, 200 mL of fluid drained in the last 24 hours, fluid is lightening and becoming more serous in nature. Patient is scheduled to have IVC filter placed today. No other new concerns Objective - Vital Signs Vital signs: Vital Signs Temp 98.8 F 09/08/21 03:41 Pulse 70 09/08/21 03:41 Resp 18 09/08/21 03:41 BP 139/63 09/08/21 03:41 Pulse Ox 91 L 09/08/21 03:41 Intake & Output 09/07/21 09/08/21 09/08/21 18:59 06:59 18:59 Intake Total 340 Output Total 200 1820 Balance 140 -1820 Weight 86.4 kg Intake: Intake, IV Titration 100 Amount Piperacillin-Tazobactam 3 100 .375 gm In Sodium Chloride 0.9% 100 ml @ 25 mls/hr IVPB Q12H [facility] Rx# :[id number] Oral 240 Output: Chest Tube Drainage 20 Pleural Catheter Left 20 Drainage 200 Left Chest 200 Urine 300 Hemodialysis 1500 Other: Voiding Method Urinal Urinal - Exam CONSTITUTIONAL: Appears comfortable, cooperative, no acute distress RESPIRATORY: Lungs sounds diminished bilaterally, left greater than right. Respirations even, nonlabored. Currently on 2.5 L nasal cannula with oxygen saturation 91-93%. Able to achieve 6363-2654 mL on incentive spirometry. Strong cough. CARDIOVASCULAR: S1, S2 present. Regular rate and rhythm, sinus rhythm on telemetry. Palpable peripheral pulses bilaterally. Bilateral lower extremity edema present. No calf pain or tenderness noted. SCDs present. GASTROINTESTINAL: Abdomen soft, nontender, nondistended. Active bowel sounds present 4 quadrants. Tolerating diet. Positive bowel movement. GENITOURINARY: Continues to void INTEGUMENTARY: Skin is warm and dry with evidence of good perfusion. NEUROLOGIC: Cranial nerves II through XII intact MUSKULOSKELETAL: Able to move all extremities, strength equal bilaterally PSYCHIATRIC: Alert and oriented to person place and time, appropriate affect, intact judgment and insight INVASIVE LINES AND TUBES: Left Pleurx catheter in place and connected to atrium, 200 mL drainage in the last 24 hours - Allied health notes Allied health notes reviewed: nursing - Labs CBC & Chem 7: 09/08/21 07:44 09/07/21 07:06 Labs: Abnormal Lab Results - Last 24 Hours (Table) 09/07/21 09/07/21 09/07/21 Range/Units 11:48 16:46 20:31 RBC (4.30-5.90) m/uL Hgb (13.0-17.5) gm/dL Hct (39.0-53.0) % RDW (11.5-15.5) % Lymphocytes # (1.0-4.8) k/uL POC Glucose (mg/dL) 221 H 227 H 190 H (75-99) mg/dL 09/08/21 09/08/21 Range/Units 05:59 07:44 RBC 2.31 L (4.30-5.90) m/uL Hgb 7.1 L (13.0-17.5) gm/dL Hct 20.9 L (39.0-53.0) % RDW 16.1 H (11.5-15.5) % Lymphocytes # 0.4 L (1.0-4.8) k/uL POC Glucose (mg/dL) 138 H (75-99) mg/dL Microbiology - Last 24 Hours (Table) 09/04/21 15:03 Gram Stain - Preliminary Pleural Fluid Body Fluid Culture - Preliminary - Imaging and Cardiology Chest x-ray: image reviewed Assessment and Plan Assessment: 1. 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 Bilateral pleural effusions with history of recurrent left-sided pleural effusions status post left Pleurx catheter placement. Pleurx was placed at [facility] in April 2021, status post right thoracentesis on performed by Dr. Palomo 3. Chronic kidney disease stage IV 4. New onset atrial fibrillation 5. Coronary artery disease with history of previous PCI and coronary artery bypass grafting surgery in 2016 6. History of COVID-19 infection 7. History of hypertension 8. History of hyperlipidemia 9. Insulin-dependent diabetes mellitus 10. Lifetime nonsmoker 11. Anemia 12. Leukocytosis Plan: 1. Continue to follow daily chest x-rays. 2. Will continue Pleurx catheter to atrium with continuous drainage for now. Likely will cap tomorrow as drainage amount has decreased and has become more serous in nature 3. Encourage use of his incentive spirometry 10 times every hour while awake. 4. Medical management and other comorbidities per primary care service recommendations. 5. More recommendations to follow based on patient's clinical course. Time with Patient: Greater than 30
--- NOTE | 2021-09-08 09:43 | P.PN ---
Subjective Patient is seen in follow-up for acute kidney injury on chronic kidney disease. Started on hemodialysis 09/06/2021. Tolerating dialysis well. Edema improving. Hemoglobin improved post blood transfusion. Oral intake fair. No vomiting or diarrhea. Vital signs are stable. General: The patient appeared well nourished and normally developed. HEENT: Head exam is unremarkable. LUNGS: Breath sounds decreased. Pleurx catheter noted. HEART: Rate and Rhythm are regular. ABDOMEN: Soft, no distention. EXTREMITITES: 1+ edema. Objective - Vital Signs Vital signs: Vital Signs Temp 98.8 F 09/08/21 03:41 Pulse 70 09/08/21 03:41 Resp 18 09/08/21 03:41 BP 139/63 09/08/21 03:41 Pulse Ox 91 L 09/08/21 03:41 Intake & Output 09/07/21 09/08/21 09/08/21 18:59 06:59 18:59 Intake Total 340 Output Total 200 1820 Balance 140 -1820 Weight 86.4 kg Intake: Intake, IV Titration 100 Amount Piperacillin-Tazobactam 3 100 .375 gm In Sodium Chloride 0.9% 100 ml @ 25 mls/hr IVPB Q12H [facility] Rx# :[id number] Oral 240 Output: Chest Tube Drainage 20 Pleural Catheter Left 20 Drainage 200 Left Chest 200 Urine 300 Hemodialysis 1500 Other: Voiding Method Urinal Urinal - Labs CBC & Chem 7: 09/08/21 07:44 09/07/21 07:06 Labs: Abnormal Lab Results - Last 24 Hours (Table) 09/07/21 09/07/21 09/07/21 Range/Units 11:48 16:46 20:31 RBC (4.30-5.90) m/uL Hgb (13.0-17.5) gm/dL Hct (39.0-53.0) % RDW (11.5-15.5) % Lymphocytes # (1.0-4.8) k/uL POC Glucose (mg/dL) 221 H 227 H 190 H (75-99) mg/dL 09/08/21 09/08/21 Range/Units 05:59 07:44 RBC 2.31 L (4.30-5.90) m/uL Hgb 7.1 L (13.0-17.5) gm/dL Hct 20.9 L (39.0-53.0) % RDW 16.1 H (11.5-15.5) % Lymphocytes # 0.4 L (1.0-4.8) k/uL POC Glucose (mg/dL) 138 H (75-99) mg/dL Microbiology - Last 24 Hours (Table) 09/04/21 15:03 Gram Stain - Preliminary Pleural Fluid Body Fluid Culture - Preliminary Assessment and Plan Plan: Assessment: 1. Acute kidney injury secondary to ATN secondary to cardiorenal syndrome. Started on hemodialysis on 09/06/2021. Has permacath. Creatinine was up to 5.1 on September 06. 2. Chronic kidney disease stage IV secondary to diabetic kidney disease with baseline creatinine near 2.5. 3. Acute on chronic diastolic CHF with moderate tricuspid regurgitation and pulmonary hypertension. 4. Volume overload. Improving with diuresis and ultrafiltration. 5. Malignant melanoma with metastasis. 6. Hypokalemia from poor intake and diuretics. Resolved. Became slightly hyperkalemic today due to bleed and acidosis. Normal today. 7. Chronic kidney disease mineral bone disease maintained on calcitriol. Phosphorus 7.0. 8. Diabetes mellitus. Hypoglycemic on admission. 9. Hypertension with chronic kidney disease. Stable. 10. Pneumonia on antibiotics. Tested negative for COVID-19. 11. Metabolic acidosis secondary to acute kidney injury. On oral bicarbonate. 12. Recurrent pleural effusions. Has a left Pleurx catheter. 13. Anemia of chronic kidney disease maintained on Aranesp. Status post blood transfusions this admission. Also received IV DDAVP this admission. Plan: Currently seen while undergoing hemodialysis. Next treatment on Saturday. Maintain Demadex 40 mg once daily. Avoid nephrotoxins. Hold antihypertensives for systolic blood pressure less than 120. Add PhosLo. Outpatient dialysis to be set up by watch caser.
--- NOTE | 2021-09-08 10:51 | XR ---
EXAMINATION TYPE: XR chest 1V portable DATE OF EXAM: 09/08/2021 COMPARISON: Chest x-ray 09/07/2021 HISTORY: Left pleural effusion, abnormal chest x-ray TECHNIQUE: Single frontal view of the chest is obtained. FINDINGS: There is a right jugular central venous catheter, distal tip is within the right atrium. P atient is post median sternotomy. Patient is rotated in apical lordotic. There are overlying artifact s. There is no pneumothorax. Blunting of the left costophrenic angle, thickening along the left later al chest wall is a stable finding. The heart may be enlarged, is stable. There is some mild prominenc e of interstitium. Central vascularity appears prominently. Left-sided Pleurx catheter is in place. T here is some minimal blunting the right cost phrenic angle. IMPRESSION: Correlate for interstitial edema, volume overload, pleural effusions
--- NOTE | 2021-09-08 11:14 | P.PN ---
<Vinita Pierce - Last Filed: 09/08/21 11:10> Subjective Progress Note Date: 09/08/21 CHIEF COMPLAINT: Hypoglycemia and altered mental status HISTORY OF PRESENT ILLNESS: Surgical service is following regards to patient's anemia. Patient lying in bed comfortably. He is receiving hemodialysis. Denies any blood in his stools. He is scheduled for a Fernie filter placement today. Afebrile. WBC 6.9 hemoglobin has dropped from 7.4-7.1 His chest tube drainage is sanguinous. His Eliquis is currently on hold. PHYSICAL EXAM: VITAL SIGNS: Reviewed. GENERAL: Well-developed in no acute distress. HEENT: No sclera icterus. Extraocular movements grossly intact. Moist buccal mucosa. Head is atraumatic, normocephalic. ABDOMEN: Soft. Nondistended. Nontender. NEUROLOGIC: Alert and oriented. Cranial nerves II through XII grossly intact. ASSESSMENT: 1. Anemia 2. Metastatic melanoma with metastases to the lung 3. Right pleural effusion requiring thoracentesis 4. Left pleural effusion with Pleurx catheter 5. Acute kidney injury starting hemodialysis 6. History of DVT and PE 7. Paroxysmal atrial fibrillation PLAN: -EGD and colonoscopy tentatively scheduled for 09/11/[address] Peck -Continue supportive care Physician Ski Molder note has been reviewed by physician. Signing provider agrees with the documented findings, assessment, and plan of care. Objective - Vital Signs Vital signs: Vital Signs Temp 98.8 F 09/08/21 03:41 Pulse 70 09/08/21 03:41 Resp 18 09/08/21 03:41 BP 139/63 09/08/21 03:41 Pulse Ox 91 L 09/08/21 03:41 Intake & Output 09/07/21 09/08/21 09/08/21 18:59 06:59 18:59 Intake Total 340 Output Total 200 1820 Balance 140 -1820 Weight 86.4 kg Intake: Intake, IV Titration 100 Amount Piperacillin-Tazobactam 3 100 .375 gm In Sodium Chloride 0.9% 100 ml @ 25 mls/hr IVPB Q12H [facility] Rx# :[id number] Oral 240 Output: Chest Tube Drainage 20 Pleural Catheter Left 20 Drainage 200 Left Chest 200 Urine 300 Hemodialysis 1500 Other: Voiding Method Urinal Urinal - Labs CBC & Chem 7: 09/08/21 07:44 09/07/21 07:06 Labs: Abnormal Lab Results - Last 24 Hours (Table) 09/07/21 09/07/21 09/07/21 Range/Units 11:48 16:46 20:31 RBC (4.30-5.90) m/uL Hgb (13.0-17.5) gm/dL Hct (39.0-53.0) % RDW (11.5-15.5) % Lymphocytes # (1.0-4.8) k/uL POC Glucose (mg/dL) 221 H 227 H 190 H (75-99) mg/dL 09/08/21 09/08/21 Range/Units 05:59 07:44 RBC 2.31 L (4.30-5.90) m/uL Hgb 7.1 L (13.0-17.5) gm/dL Hct 20.9 L (39.0-53.0) % RDW 16.1 H (11.5-15.5) % Lymphocytes # 0.4 L (1.0-4.8) k/uL POC Glucose (mg/dL) 138 H (75-99) mg/dL Microbiology - Last 24 Hours (Table) 09/04/21 15:03 Gram Stain - Preliminary Pleural Fluid Body Fluid Culture - Preliminary <Charles Peck - Last Filed: 09/08/21 16:54> Subjective As above. Patient has no new complaints. IVC filter placed today. Spoke with oncology again. They still would prefer patient have endoscopy to determine safety of resuming anticoagulation. Will tentatively schedule EGD and colonoscopy for Saturday. Objective - Vital Signs Vital signs: Vital Signs Temp 98 F 09/08/21 11:35 Pulse 72 09/08/21 11:35 Resp 18 09/08/21 11:35 BP 142/76 09/08/21 11:35 Pulse Ox 91 L 09/08/21 03:41 Intake & Output 09/07/21 09/08/21 09/08/21 18:59 06:59 18:59 Intake Total 340 100 Output Total 200 1820 2000 Balance 140 -1820 -1900 Weight 86.4 kg Intake: IV 100 Intake, IV Titration 100 Amount Piperacillin-Tazobactam 3 100 .375 gm In Sodium Chloride 0.9% 100 ml @ 25 mls/hr IVPB Q12H [facility] Rx# :[id number] Oral 240 Output: Chest Tube Drainage 20 Pleural Catheter Left 20 Drainage 200 Left Chest 200 Urine 300 Hemodialysis 1500 2000 Other: Voiding Method Urinal Urinal - Labs CBC & Chem 7: 09/08/21 07:44 09/07/21 07:06 Labs: Abnormal Lab Results - Last 24 Hours (Table) 09/06/21 09/07/21 09/08/21 Range/Units 09:37 20:31 05:59 RBC (4.30-5.90) m/uL Hgb (13.0-17.5) gm/dL Hct (39.0-53.0) % RDW (11.5-15.5) % Lymphocytes # (1.0-4.8) k/uL POC Glucose (mg/dL) 190 H 138 H (75-99) mg/dL Crossmatch See Detail 09/08/21 09/08/21 Range/Units 07:44 16:44 RBC 2.31 L (4.30-5.90) m/uL Hgb 7.1 L (13.0-17.5) gm/dL Hct 20.9 L (39.0-53.0) % RDW 16.1 H (11.5-15.5) % Lymphocytes # 0.4 L (1.0-4.8) k/uL POC Glucose (mg/dL) 248 H (75-99) mg/dL Crossmatch Microbiology - Last 24 Hours (Table) 09/04/21 15:03 Gram Stain - Preliminary Pleural Fluid Body Fluid Culture - Preliminary
--- NOTE | 2021-09-08 11:28 | P.PN ---
Subjective Progress Note Date: 09/08/21 Principal diagnosis: Acute hypoxic respiratory failure secondary to bilateral pleural effusions and history of metastatic melanoma. This is a 70-year-old gentleman patient of Dr. Wyatt Pereira. He has underlying history of diabetes mellitus type 2, CAD with prior CABG, CK D stage III, hypertension, history of melanoma was in remission until March when patient was noted to have met metastatic melanoma with metastases to the lung with enlarged lymph nodes currently on immunotherapy. Patient had recent covid infection in September, with acute kidney injury secondary to covid infection September 2020 and follow Ernie since then. Patient was again admitted in November 09 for 2 days for acute diastolic congestive heart failure secondary to withdrawal off diuretics due to worsening kidney function. He was seen in the ER in March 20 for shortness of breath secondary to metastatic melanoma to his lungs with bilateral pleural effusions. Patient has been getting frequent thoracentesis and underwent pigtail catheter placement in the left chest in April. He was initially getting fluid removed up to 1 L every day but currently patient is getting fluid removed up to 550 mL once a week, last one 2 days ago. Note that the patient's progress catheter was inserted at [facility]. His original thoracentesis was also done at [facility]. As mentioned, t here has been significant drop in the output from the Pleurx catheter. He is current hospitalization, another drainage was attempted and there was no output. Meanwhile, the patient's oxidation progressively been getting worse and the patient is currently at that is about 2 by nasal cannula. No fever. No chills. No hemoptysis to no pleurisy. No swelling lower extremities. A CAT scan of the chest was done at time of admission and the patient was found to have bilateral pleural effusion with basilar pulmonary infiltrates/atelectasis that increased compared to the old examination. There was also mediastinal lymphadenopathy. The Pleurx catheter was in the left chest. Left-sided pleural effusion itself seemed to be somewhat loculated. On today's evaluation, the patient has a white cell count 9.2 with a hemoglobin of 7.6. Has chronic kidney disease, stage IV with a creatinine of 3.7 and the BUN of 99. He has an anion gap metabolic acidosis with a bicarb level of 19. Currently, he is on IV Zosyn as an empiric antibiotic coverage. Reevaluated today on 09/04/2021, patient remains on the regular medical floor, his Pleurx catheter was addressed by surgery, patient received TPA into the Pleurx catheter, and apparently it's functioning again. I saw him today mostly for his right-sided pleural effusion, underwent thoracentesis, and I was able to drain over 1750 mL of serosanguineous fluid from the right pleural space. Patient felt better, postoperative chest x-ray showed complete resolution of his right-sided pleural effusion. Patient is doing well from the pulmonary pers pective, the fluid was drained was sent for different diagnostic studies. Patient is on 7 L nasal cannula, O2 sats is 96%. Electrolytes are normal BUN is 100 creatinine 4.04. And that being addressed by nephrology on the case. The patient is seen today 09/05/2021 in follow-up on the active care unit. He is currently sitting up in a chair at the bedside. Awake and alert in no acute distress. He is maintaining O2 saturations in the mid 90s on 6 L high flow nasal cannula. Afebrile. Currently hemodynamically stable. He is quite pale today. He did undergo a thoracentesis yesterday with 1750 MLS of serosanguineous fluid removed from the right chest. Yesterday TPA was infused into the left pigtail catheter was 600 bloody fluid removed. Today another 1000 mL of dark bloody fluid removed. The patient is dropping his hemoglobin. It was 6.1 this morning. He has received 2 units of packed red blood cells thus far. White count 19.9. Platelets 229. Sodium 139. Potassium 5.4. Creatinine 4.26. He remains on IV diuretics, antibiotics in the form of Zosyn. Eliquis remains on hold. On 09/06/2021 patient seen in follow-up on selective care unit, he is awake and alert, in no acute distress, he is currently resting in bed, on 4 L of oxygen, breathing fairly comfortable. He had right subclavian permacath inserted for hemodialysis today. He still has left-sided pigtail chest tube in place with bloody drainage out of the chest tube, it is to water seal, no evidence of air l eak. Today's chest x-ray shows bilateral airspace disease and left-sided pleural effusion stable in appearance. Patient is status post right-sided thoracentesiswith removal of 1750 ML of slightly serosanguineous fluid on 09/04/2021, and pleural fluid analysis revealed transudative fluid consistent with acute exacerbation of CHF. Patient was also new onset atrial fibrillation this admission, but currently his anticoagulation is on hold related to bloody drainage out of his left-sided chest tube. Today's hemoglobin is 6.1, and patient has been transfused with another unit of packed red blood cells. Patient had previously received IM and a blood on 09/02/2021. His d-dimer was elevated on yesterday's labs at 8.21, and patient was diagnosed with new acute left popliteal DVT. However he is not a candidate for anticoagulation right now, and we recommended placement of IVC filter. Pleural fluid cytology is still pending at this time. Vital signs have been stable, no worsening dyspnea, today's labs have been reviewed, his white blood cell count is slightly improved and is down to 16.8, his platelet count is 211, sodium is 136, potassium is 5.1, his BUN is 111, creatinine is 5.12. Patient remains on Zosyn. His pleural fluid culture showed diphtheroid species and this was on the pleural fluid collected on 09/01/2021, his right-sided pleural fluid collected on 09/04/2021 has shown no growth thus far. The patient is seen today 09/07/2021 in follow-up on the selective care unit. He is currently sitting up in a chair at the bedside. Awake and alert in no acute distress. He is down to 3 L nasal cannula with O2 saturation in the mid 90s. He had undergone hemodialysis via a new right subclavian permacath that was inserted yesterday. The plan is for hemodialysis today and again tomorrow. His Pleurx catheter has been placed to an atrium. Presently 1200 mL fluid had been drained since that time. Chest x-ray is showing improved left-sided consolidation and small effusion. Stable right perihilar infiltrate. He is status post 4 units of packed red blood cells this admission. Current hemoglobin 7.4. White count 7.8. Hemoglobin 7.4. Sodium 138. Potassium 4.5. Creatinine 4.28. Glucose 224. He remains on Zosyn. Oral diuretics. Liquids remains on hold. The patient is seen today 09/08/2021 in follow-up on the selective care unit. He is currently sitting up in bed. Awake and alert in no acute distress. Currently receiving hemodialysis. His x-ray continues to show some interstitial edema and small effusions. Left-sided Pleurx catheter remains in place. No evidence of pneumothorax. The patient is status post 4 units of packed red blood cells this admission. His current hemoglobin is 7.1. No significant findings on right-sided pleural fluid analysis negative for malignancy. White count 6.9. Platelets 174,000. Glucose 138. He denies any worsening shortness of breath, cough or congestion. He is maintaining O2 saturations in the low 90s on 4 L/m per nasal cannula. He's been afebrile. Hemodynamically stable. He remains on Zosyn. Plan is for IVC placement today. Remains off Eliquis. Objective - Vital Signs Vital signs: Vital Signs Temp 98.8 F 09/08/21 03:41 Pulse 70 09/08/21 03:41 Resp 18 09/08/21 03:41 BP 139/63 09/08/21 03:41 Pulse Ox 91 L 09/08/21 03:41 Intake & Output 09/07/21 09/08/21 09/08/21 18:59 06:59 18:59 Intake Total 340 Output Total 200 1820 Balance 140 -1820 Weight 86.4 kg Intake: Intake, IV Titration 100 Amount Piperacillin-Tazobactam 3 100 .375 gm In Sodium Chloride 0.9% 100 ml @ 25 mls/hr IVPB Q12H [facility] Rx# :[id number] Oral 240 Output: Chest Tube Drainage 20 Pleural Catheter Left 20 Drainage 200 Left Chest 200 Urine 300 Hemodialysis 1500 Other: Voiding Method Urinal Urinal - Exam Gen: This is a pleasant 71-year-old male. On 4 L nasal cannula, in no distress. HEENT: Head is atraumatic, normocephalic. Pupils equal, round. Sclerae is anict kacey. NECK: Supple. No JVD. No lymphadenopathy. No thyromegaly. LUNGS: Decreased breath sounds bilaterally with bilateral crackles in the bases. Pleural catheter in the left side attached to the pleural VAC. No intercostal retractions. HEART: Irregularly irregular rate and rhythm. No murmur. ABDOMEN: Soft. Bowel sounds are present. No masses. No tenderness. EXTREMITIES: Bilateral pedal edema. No calf tenderness. NEUROLOGICAL: Patient is awake, alert and oriented x3. Cranial nerves 2 through 12 are grossly intact. - Labs CBC & Chem 7: 09/08/21 07:44 09/07/21 07:06 Labs: Abnormal Lab Results - Last 24 Hours (Table) 09/07/21 09/07/21 09/07/21 Range/Units 11:48 16:46 20:31 RBC (4.30-5.90) m/uL Hgb (13.0-17.5) gm/dL Hct (39.0-53.0) % RDW (11.5-15.5) % Lymphocytes # (1.0-4.8) k/uL POC Glucose (mg/dL) 221 H 227 H 190 H (75-99) mg/dL 09/08/21 09/08/21 Range/Units 05:59 07:44 RBC 2.31 L (4.30-5.90) m/uL Hgb 7.1 L (13.0-17.5) gm/dL Hct 20.9 L (39.0-53.0) % RDW 16.1 H (11.5-15.5) % Lymphocytes # 0.4 L (1.0-4.8) k/uL POC Glucose (mg/dL) 138 H (75-99) mg/dL Microbiology - Last 24 Hours (Table) 09/04/21 15:03 Gram Stain - Preliminary Pleural Fluid Body Fluid Culture - Preliminary Assessment and Plan Assessment: 1 Acute hypoxic respiratory failure, multifactorial, but the patient clearly had bilateral pleural effusions possibly malignant unless for otherwise, history of pulmonary embolisms, history of pneumonia, and suspect some component of diastolic congestive heart failure. Cytology negative right-sided thoracentesis. Stable and on 4 L nasal cannula. 2 Metastatic melanoma 3 New-onset atrial fibrillation, currently off Eliquis due to acute anemia. Plan is for IVC placement today 4 Acute kidney injury with acute tubular necrosis and history of chronic kidney disease stage IV, right Hemo-Cath placed and he received dialysis 3 days in a row now 5 Recurrent pleural effusions had previous left sided Pleurx catheter placed by [facility], patient underwent right-sided thoracentesis 09/04/2021 and able to drain 1750 mL. 6 History of GI bleeding 7 Dyslipidemia 8 History of hypertension 9 Chronic anemia secondary to chronic renal disease 10 Acute anemia secondary to bloody effusions requiring 4 units of packed red blood cells so far this admission. Current hemoglobin 7.1. Plan: The patient was seen and evaluated today Chest x-ray and labs reviewed Stable from the pulmonary standpoint Remains on Zosyn Hemoglobin stable Plan is for IVC filter placement today We will see as needed I, the cosigning physician, performed a history & physical examination of the patient. Lungs sounds with crackles in the bilateral bases. Maintaining good O2 saturations in the 90s on 4 L high flow nasal cannula. I discussed the assessment and plan of care with my nurse practitioner, Mai Malave. I attest to the above note as dictated by her.
[2021-09-08] MEDS ORDERED: SODIUM CHLORIDE 0.9% 500 ML 500 ML IV ONE (11:45)
[2021-09-08] MEDS ORDERED: MIDAZOLAM 2 MG/2 ML VIAL IV ONE (11:55)
[2021-09-08] MEDS: LIDOCAINE 1% INJ 10MG/ML (20 ML MDV) SQ ONE ×2 (11:55→12:14)
[2021-09-08] MEDS ORDERED: IOPAMIDOL-250 100ML BTL INTRAARTER ONE ×2 (12:27)
[2021-09-08] MEDS: ATORVASTATIN 80 MG TAB PO SCH (14:35)
[2021-09-08] MEDS: ASPIRIN 81 MG PO SCH (14:35)
[2021-09-08] MEDS: TORSEMIDE 20 MG TAB PO SCH (14:36)
[2021-09-08] MEDS: amLODIPine 5 MG TAB PO SCH (14:36)
[2021-09-08] MEDS: hydrALAZINE HCL 50 MG TAB PO SCH ×3 (14:36→21:53)
[2021-09-08] MEDS: SODIUM BICARBONATE TAB 650 MG TAB PO SCH ×2 (14:36→21:53)
[2021-09-08] MEDS: carvediloL 12.5 MG TAB PO SCH ×2 (14:37→18:22)
--- NOTE | 2021-09-08 15:02 | P.PN ---
Subjective Progress Note Date: 09/08/21 History of present illness This is a 71-year-old gentleman patient of Dr. Wyatt Pereira. He has underlying history of diabetes mellitus type 2, CAD with prior CABG, CK D stage III, hypertension, history of melanoma was in remission until March when patient was noted to have metastatic melanoma with metastases to the lung with enlarged lymph nodes currently on immunotherapy. Patient had recent covid infection in September, with acute kidney injury secondary to covid infection September 2020 and follow Ernie since then. Patient was again admitted in November 09 for 2 days for acute diastolic congestive heart failure secondary to withdrawal off diuretics due to worsening kidney function. He was seen in the ER in March 20 for shortness of breath secondary to metastatic melanoma to his lungs with bilateral pleural effusions. Patient has been getting frequent thoracentesis an d underwent pigtail catheter placement in the left chest in April. He was initially getting fluid removed up to 1 L every day but currently patient is getting fluid removed up to 550 mL once a week, last one 2 days ago. Patient has noticed poor appetite and increased shortness of breath for the past 1 week. He had his Covid booster 6 days ago following which he went to [facility] to have a brain MRI and CT. He received his immunotherapy 3 days ago. He has not recovered since then. His noticed poor appetite increased weakness associated with cough and shortness of breath. Patient was found to have low blood sugar in the low 30s which came back to normal. EKG demonstrated atrial fibrillation In the ER patient is noted to be hypoxic and was placed on 5 L of high flow still saturating at 89%. Otherwise patient is afebrile pulse 66 respiratory rate 18 blood pressure 127/58. He had a leukocytosis of 11, hemoglobin 9.9 platelet 225, BUN 109 creatinine 3.59. Sodium 139 potassium 3.4 chloride 110 bicarb 18 [place] [address] Chest x-ray on 08/26 suggests cardiomegaly with small left pleural effusion R [id number] interstitial edema concerning for CHF exacerbation was noted. CT chest was obtained that showed bilateral pleural effusion with basilar pulmonary airspace infiltrates and atelectasis significantly increased compared to old exam with cardiomegaly and mediastinotomy edema but the similar to old exam. 08/28: Patient has been seen and followed by cardiology with recommendations to continue current medications. Echocardiogram has been obtained and report is pending. Patient is also followed by nephrology with recommendations to continue diuretics, discontinue Norvasc. Repeat chest x-ray reveals stable bibasilar right greater than left patchy and interstitial opacities with stable moderate cardiomegaly, trace left pleural effusion may be on the basis of multi focal pneumonia/atelectasis and/or heart failure. No pneumothorax. Patient has been afebrile, heart rate 62, blood pressure 126/66, pulse ox 94% on 6 L nasal cannula. Plan is to wean oxygen down. Repeat blood work reveals sodium 140, potassium 3.7, chloride 110, CO2 19, BUN 107, creatinine 3.86. Blood sugars are running mostly in the 300s this morning 133. Prandin 1 mg with meals added and Levemir increased to home dose of 35 units at bedtime. Patient has Albright catheter in place which we will have removed today and bladder scan postvoid. Home oxygen assessment to be done. 08/29: Patient is seen today on the cardiac stepdown unit. He is followed by nephrology with recommendations to maintain Albright catheter, avoid hypotension, nephro toxic agents and continue IV fluids at 50 ML's per hour. We have discontinued vancomycin. Patient has also been seen by cardiology. Patient is currently on Zosyn. VQ scan ordered to rule out pulmonary embolism due to ongoing hypoxia. Patient is requiring 6 L nasal cannula with pulse ox of 92%. He's been afebrile, heart rate 66, blood pressure 133/68. Repeat blood work reveals sodium 138, potassium 4.2, chloride 109, CO2 19, BUN 103 and creatinine 4.04. Blood sugars are running between 167 and 249.. Ultrasound of the right lower extremity revealed DVT but could not be determined if this was acute and suggest chronic component. Chest x-ray reveals heart failure underlying pneumonia not excluded. 08/30: Patient is currently on IV heparin for pulmonary embolism.patient does have history of lower extremity DVT which he states he completed course of anticoagulation. Discussed case with oncology and we will plan for eliquis, prescription is been sent to his pharmacy. Pneumonia has been ruled out and antibiotics will be discontinued. Patient has Albright catheter in place which will be discontinued today if okay with nephrology and check postvoid residual. The blood work reveals WBC 8.5, hemoglobin 8.0. BUN 107, creatinine 4.2, CO2 19. Patient has been seen by PT and OT with recommendations for home. 08/31: Albright Catheter was discontinued this morning and bladder scan is ordered for 1 PM. Patient has increased breath sounds on left-sided chest x-ray ordered today. Renal function is slightly improved from yesterday with BUN of 99 and creatinine 3.99. Hemoglobin 7.6. TSH is 2.740. Patient will be started on eliquis and heparin discontinued. She has been afebrile, heart rate 70, blood pressure 141/76, pulse ox 92% on 4 L nasal cannula. The patient may require home oxygen therapy and we will assess closer to discharge. Renal ultrasound revealed no hydronephrosis or nephrolithiasis. There is increased echogenicity of the renal cortex which can be sutured with chronic medical renal disease. Chest x-ray reveals correlate for heart failure otherwise diffuse pneumonia. Findings stable. 09/01: Patient has been afebrile, heart rate 69, blood pressure 167/79, pulse ox 91%. He is now on 7 L nasal cannula. Ultrasound of the chest will be done to evaluate pleural effusions. Patient was transitioned from heparin drip to eliquis yesterday and oncology wants him on eliquis for life. Patient continues to have lower extremity edema. Repeat blood work reveals BUN of 101, creatinine 3.88, CO2 of 20. Blood sugars are running between 130 and 182. We will ask for Dr. Suarez to evaluate for pneumonia. And patient started on Zosyn. Patient does have pleural cath in place which nurse tried to drain today but no output. 09/02: Hemoglobin this morning is 6.7 and patient will be transfused 1 unit of packed RBCs. Repeat blood work for tomorrow.Blood glucose ran between 100 and 180. One dose of IV Lasix ordered by nephrology. 09/03: Patient states that he has been sleeping in his chair because it is easier to breathe. He did require nonrebreather for a few hours during the night. We will order 1 dose of IV Lasix today 40 mg. He has been afebrile, heart rate 72, blood pressure 150/75 and pulse ox 93% on 9 L nasal cannula. Blood sugars have been running mostly between 9785 but only 68 this morning. Hemoglobin today is 7.6 after 1 unit of packed RBC dose infused yesterday. BUN 99 and creatinine 3.71. CO2 19. Patient is on sodium bicarb oral. He is followed closely by nephrology. Consult added for pulmonary medicine. 09/04: Cardiothoracic surgery drained half liter from Pleurx catheter on the left side and recommendations are for drainage on the right side. Interventional radiology added to perform this. At this time, plan is for Dr. Dee to do a right-sided thoracentesis on Saturday. We have transitioned patient off eliquis and onto heparin drip and this will need to be held 4 hours prior to procedure on Saturday. Patient has been afebrile, heart rate 70, blood pressur e 148/67, pulse ox 91% on 8 L nasal cannula. Repeat blood work reveals WBC 9.3, hemoglobin 7.4. INR is 1.3. BUN 100 and creatinine 4.04. Blood sugars are running between 89 and 209. Pleural fluid is showing diphtheroid species. 09/05 patient examined bedside. He appears much pale than yesterday. Patient nurse called to him in the morning suggesting of left chest pain. Chest x-ray was obtained that suggested progression of pleural effusion. Patient had 1 L of serosanguineous drainage from the left pleural cavity this morning. Thoracentesis of the right 1750 ml were removed on 09/[address] Reinoso. Labs reviewed suggestive WBC of 19.9 hemoglobin 6.1 hematocrit 18.2 platelet 229 sodium 139 potassium 5.4 BUN 101 creatinine 4.26. Vitals reviewed suggestive of 97.9 pulse 63 respiratory rate 16 blood pressure 102/47 on 6 L high flow. Patient received 2 units of PRBC for low hemoglobin. Repeat hemoglobin in the evening. Due to progression of renal dysfunction plan for renal replacement therapy tomorrow with placement of permacath with vascular surgery. Prandin discontinued Levemir reduced to 10 units as patient's continues to have hypoglycemia 09/06: Patient was scheduled for catheter placement today with vascular surgery for hemodialysis but this was canceled due to hemoglobin of 6.1. He is scheduled for 2 units of packed RBCs. 1 L of sanguinous fluid was removed from the left pleura catheter. Patient is denying having any chest pain. He is currently on 6 L nasal cannula with pulse ox 97%, afebrile, heart rate 70s, blood pressure 99/37. Other lab work today reveals WBC 16.8. BUN 111, creatinine 5.12. Blood sugars are in the 100 and teens. 09/07: Patient now has pleural catheter to dependent drainage with sanguineous drainage. Patient had dialysis catheter placed yesterday to the right subclavian by Dr. Brody and patient had first dialysis treatment 09/06. He is scheduled for repeat dialysis today. Patient states his breathing is okay. He is down to 3 L nasal cannula. Regarding discharge planning, patient states that he is planning to go home and lives at home with his . Contacted Dr. Brody regarding placing a Newport filter which will be scheduled for tomorrow. 09/08: Patient underwent Newport filter placement today with Dr. Brody. He has had no postop complications. Patient has left sided Pleurx catheter to dependent drainage and is having more serous versus sanguinous drainage. Hemoglobin today is 7.1 and patient will be transfused 1 unit of packed RBCs. Patient is scheduled for repeat hemodialysis today. Chest x-ray continues to show interstitial edema and small effusions. He has been afebrile, heart rate 7 0, blood pressure 139/63, pulse ox 91% on 4 L nasal cannula. Eliquis discontinued. Review Of Systems: Constitutional: No fever, no chills, no night sweats. No weight change. Reports weakness,Reports fatigue no lethargy. No daytime sleepiness. EENT: No headache. No blurred vision or double vision, no loss of vision. No nasal drainage or congestion. No epistaxis. No sore throat. Lungs: Reports shortness of breath, stable , occasional cough, no sputum production. No wheezing. Cardiovascular: No chest pain, no lower extremity edema. No palpitations. No paroxysmal nocturnal dyspnea. Reports orthopnea. No lightheadedness or dizziness. No syncopal episodes. Abdominal: No abdominal pain. No nausea, vomiting. No diarrhea. No constipation. No bloody or tarry stools.. No loss of appetite. Genitourinary: No dysuria, increased frequency, urgency. No urinary retention. Musculoskeletal: No myalgias. Reports muscle weakness, no gait dysfunction, no frequent falls. No back pain. No neck pain. Integumentary: No wounds, no lesions. No rash or pruritus. No unusual bruising. Neurologic: No aphasia. No facial droop. No change in mentation. No head injury. No headache. No paralysis. No paresthesia. Psychiatric: No depression. No anxiety. No mood swings. Endocrine: Noted abnormal blood sugars. No weight change. No excessive sweating or thirst. No cold intolerance. Physical exam Gen: This is a 71-year-old male. He is resting inreclinerppears to be comfortable. He is currently on O2 at 4 L. HEENT: Head is atraumatic, normocephalic. Pupils equal, round. Sclerae is anicteric. NECK: Supple. No JVD. No lymphadenopathy. No thyromegaly. LUNGS: Decreased breath sounds bilaterally with bilateral crackles in the bases. Pleural catheter in the left side to dependent drainage. No intercostal retractions. HEART: Irregularly irregular rate and rhythm. No murmur. ABDOMEN: Soft. Bowel sounds are present. No masses. No tenderness. EXTREMITIES: Bilateral pedal edema. No calf tenderness. NEUROLOGICAL: Patient is awake, alert and oriented x3. Cranial nerves 2 through 12 are grossly intact. Assessment and plan Acute diastolic heart failure, ejection fraction 55-60% with severe concentric left ventricle hypertrophy and moderate to severe pulmonary hypertension moderate tricuspid regurgitation on October 2020. IV Lasix 40 mg daily. Monitor I&O and daily weights, also followed by cardiology. Acute hypoxic respiratory failure secondary to CHF exacerbation and bilateral pleural effusions, pulmonary embolism, pneumonia possible. She is status post Newport filter, no eliquis. Continue Zosyn, consult with infectious disease appreciated. Consult added for pulmonary medicine. Acute kidney injury secondary to ATN with cardiorenal syndrome on chronic kidney disease stage IV secondary to diabetic kidney disease with baseline creatinine 2.5. Nephrology consult appreciated, avoid nephrotoxic agents, monitor renal function. Desmopressin 24 g 1. Patient has dialysis catheter placement by Dr. Brody and started on hemodialysis 09/06. 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 New onset paroxysmal atrial fibrillation. Continue Coreg 12.5 twice a d, eliquis discontinued due to bloody pleural effusion. Newport filter insertion done by Dr. Brody 09/08. Metastatic melanoma with metastasis to the lung and lymph nodes enlargement. On immunotherapy, follows Dr. Umaña. Consult with oncology appreciated. Recurrent pleural effusion With pleural cath involving the left pleural cavity. Follows cardiothoracic surgeon at the [facility]. cardiothoracic surgery consult appreciated. Hypoglycemia with history Diabetes mellitus type 2, hypoglycemia resolved. A1c 8.8. Levemir decreased to 10 units at bedtime, Prandin discontinued, Insulin sliding scale. Anemia of kidney disease with acute blood loss anemia secondary to pleural effusion. Patient is status post iron infusion, s/p 4 unit of packed RBCs. Continue Aranesp. CAD with prior CABG in the past, status post occlusive disease in the LAD, and diagonal branch. Continue aspirin, Coreg, Lipitor 80 mg daily Covid infection 19 on 10/18, Received Covid booster 1 week Uncontrolled hypertension. Coreg 12.5 mg twice daily, hydralazine 25 mg twice daily, Hyperlipidemia. Continue atorvastatin 80 mg daily History of GI bleed, none currently, was previously on Eliquis. Patient on aspirin only at admission. DVT prophylaxis. hold eliquis CODE STATUS full code DISCHARGE PLAN Home. Impression and plan of care have been directed as dictated by the signing physician. Marry Andre nurse practitioner acting as scribe for signing physician. Objective - Vital Signs Vital signs: Vital Signs Temp 98 F 09/08/21 11:35 Pulse 72 09/08/21 11:35 Resp 18 09/08/21 11:35 BP 142/76 09/08/21 11:35 Pulse Ox 91 L 09/08/21 03:41 Intake & Output 09/07/21 09/08/21 09/08/21 18:59 06:59 18:59 Intake Total 340 100 Output Total 200 1820 2000 Balance 140 -1820 -1900 Weight 86.4 kg Intake: IV 100 Intake, IV Titration 100 Amount Piperacillin-Tazobactam 3 100 .375 gm In Sodium Chloride 0.9% 100 ml @ 25 mls/hr IVPB Q12H [facility] Rx# :[id number] Oral 240 Output: Chest Tube Drainage 20 Pleural Catheter Left 20 Drainage 200 Left Chest 200 Urine 300 Hemodialysis 1500 2000 Other: Voiding Method Urinal Urinal - Labs CBC & Chem 7: 09/08/21 07:44 09/07/21 07:06 Labs: Abnormal Lab Results - Last 24 Hours (Table) 09/07/21 09/07/21 09/08/21 Range/Units 16:46 20:31 05:59 RBC (4.30-5.90) m/uL Hgb (13.0-17.5) gm/dL Hct (39.0-53.0) % RDW (11.5-15.5) % Lymphocytes # (1.0-4.8) k/uL POC Glucose (mg/dL) 227 H 190 H 138 H (75-99) mg/dL 09/08/21 Range/Units 07:44 RBC 2.31 L (4.30-5.90) m/uL Hgb 7.1 L (13.0-17.5) gm/dL Hct 20.9 L (39.0-53.0) % RDW 16.1 H (11.5-15.5) % Lymphocytes # 0.4 L (1.0-4.8) k/uL POC Glucose (mg/dL) (75-99) mg/dL Microbiology - Last 24 Hours (Table) 09/04/21 15:03 Gram Stain - Preliminary Pleural Fluid Body Fluid Culture - Preliminary
--- NOTE | 2021-09-08 15:29 | IR ---
Fluoroscopy HISTORY: Pain 3.4 minutes fluoroscopy time supplied to the referring clinician. 81 intraoperative C-arm images doc ument the procedure. See dictated report from surgery.
[2021-09-08 16:47] LABS: Glucose,Whole Blood 248 mg/dL (75-99)
[2021-09-08] MEDS: CALCIUM ACETATE 667 MG TAB PO SCH ×2 (16:54→18:22)
[2021-09-08] MEDS: PIPERACILLIN-TAZOBACTAM 3.375 GM in SODIUM CHLORIDE 0.9% 100 ML IVPB SCH (17:12)
[2021-09-08] MEDS: DARBEPOETIN ALFA 60 MCG/0.3 ML SYRINGE SQ SCH (18:21)
[2021-09-08 18:22] LABS: Glucose,Whole Blood 230 mg/dL (75-99)
[2021-09-08 21:47] LABS: Glucose,Whole Blood 196 mg/dL (75-99)
[2021-09-08] MEDS: INSULIN DETEMIR (LEVEMIR) 100 UNIT/ML SYR SQ SCH (21:53)
--- NOTE | 2021-09-08 23:26 | PN ---
PROGRESS NOTE DATE OF SERVICE: 09/08/2021 REASON FOR FOLLOWUP: Pneumonia. INTERVAL HISTORY: Patient is afebrile. The patient is breathing comfortably. Patient denies having any chest pain. No worsening cough or sputum production. No abdominal pain. No diarrhea. PHYSICAL EXAMINATION: Blood pressure 130/63 with a pulse of 138/63, pulse 93, temperature 98.4, he is 97% on 4 L nasal cannula. General description is elderly male up in the bed in no distress. Respiratory system: Unlabored breathing, decreased intensity of breath sounds. No wheeze. Heart S1, S2. Regular rate and rhythm. Abdomen soft, no tenderness. Extremities: No edema of the feet. LABS: Hemoglobin is 7.1, white count 6.9, pleural fluid culture so far negative. DIAGNOSTIC IMPRESSION AND PLAN: Patient with left with a blocked PleurX catheter, status post chest tube placement. Culture has been negative. The patient is afebrile. White count normal. Antibiotic can be discontinued. We will monitor the patient closely off antibiotic therapy. Continue supportive care. MMODL / IJN: [id number] /
[2021-09-09 06:00] LABS: Glucose,Whole Blood 149 mg/dL (75-99)
[2021-09-09] MEDS: carvediloL 12.5 MG TAB PO SCH ×2 (06:51→17:06)
[2021-09-09] MEDS: CALCIUM ACETATE 667 MG TAB PO SCH ×3 (06:51→17:06)
[2021-09-09] MEDS: INSULIN ASPART (NovoLOG) 100 UNIT/ML VIAL SQ SCH ×3 (06:52→17:07)
--- NOTE | 2021-09-09 07:48 | XR ---
EXAMINATION TYPE: XR chest 1V portable DATE OF EXAM: 09/09/2021 COMPARISON: Chest x-ray 09/08/2021 HISTORY: Left-sided effusion TECHNIQUE: Single frontal view of the chest is obtained. FINDINGS: Airspace disease persists. Patient is post median sternotomy. Central venous catheter is s table. No evident pneumothorax. There is thickening along the left pleural margin, blunting the left costophrenic angle and increased retrocardiac density. Pleurx catheter is present on the left. Cardia c mediastinal silhouette shows a similar appearance. IMPRESSION: Findings similar to prior exam, there may be a component of edema or pneumonia, chronic pleural effusion. Heart appears prominently although patient is rotated.
[2021-09-09] MEDS: SODIUM BICARBONATE TAB 650 MG TAB PO SCH ×2 (08:34→19:56)
[2021-09-09] MEDS: hydrALAZINE HCL 50 MG TAB PO SCH ×3 (08:34→19:56)
[2021-09-09] MEDS: ASPIRIN 81 MG PO SCH (08:34)
[2021-09-09] MEDS: TORSEMIDE 20 MG TAB PO SCH ×2 (08:35→12:24)
[2021-09-09] MEDS: ATORVASTATIN 80 MG TAB PO SCH (08:35)
[2021-09-09] MEDS: amLODIPine 5 MG TAB PO SCH (08:35)
[2021-09-09 08:46] LABS: Basophils % (A) 0 %; Eosinophils # (A) 0.2 k/uL (0-0.7); Eosinophils % (A) 3 %; HCT 22.7 % (39.0-53.0); HGB 7.6 gm/dL (13.0-17.5); Hypochromasia Slight; Lymphocytes # (A) 0.4 k/uL (1.0-4.8); Lymphocytes % (A) 7 %; MCH 30.2 pg (25.0-35.0); MCHC 33.3 g/dL (31.0-37.0); MCV 90.6 fL (80.0-100.0); Monocytes # (A) 0.4 k/uL (0-1.0); Monocytes % (A) 6 %; Neutrophils # (A) 5.2 k/uL (1.3-7.7); Neutrophils % (A) 81 %; Platelet Count 187 k/uL (150-450); Poikilocytosis Slight; RBC 2.51 m/uL (4.30-5.90); RDW 15.9 % (11.5-15.5); WBC 6.4 k/uL (3.8-10.6)
--- NOTE | 2021-09-09 08:51 | P.PN ---
Subjective Progress Note Date: 09/09/21 Principal diagnosis: Bilateral pleural effusions with left Pleurx catheter in place, new-onset atrial fibrillation, VQ scan showing a large mismatch defect involving the right apex and right upper lobe with large segmental mismatch defect indicating high probability for pulmonary embolus, anemia, leukocytosis. Previous medical history of hypertension, hyperlipidemia, insulin-dependent diabetes mellitus, acute on chronic diastolic congestive heart failure, coronary artery disease with previous PCI and coronary artery bypass grafting surgery 3 vessels, chronic kidney disease stage III, COVID-19 infection in September 2020, lifetime nonsmoker and history of melanoma in remission until March 2021, with metastasis to the lung with enlarged lymph nodes, currently being treated with immunotherapy. Status post day #5 right-sided thoracentesis with 1750 mL of slightly serosan guineous pleural fluid drained by Dr. Reinoso. The patient was seen and examined this morning on the cardiac stepdown unit sitting up in bed in no acute distress. States his breathing is about the same, denies any pain. Left-sided Pleurx catheter remains in place connected to atrium, 50 mL of serous fluid drained in the last 24 hours. He received blood and dialysis yesterday as well as had IVC filter placed. No other new concerns Objective - Vital Signs Vital signs: Vital Signs Temp 100.6 F H 09/09/21 08:00 Pulse 67 09/09/21 08:00 Resp 16 09/09/21 08:00 BP 133/56 09/09/21 08:00 Pulse Ox 93 L 09/09/21 08:00 Intake & Output 09/08/21 09/09/21 09/09/21 18:59 06:59 18:59 Intake Total 100 118 Output Total 2240 10 Balance -2140 -10 118 Weight 86.4 kg Intake: IV 100 Oral 118 Output: Chest Tube Drainage 10 Pleural Catheter Left 10 Drainage 40 Left Chest 40 Urine 200 Hemodialysis 1999 Other: Voiding Method Urinal Urinal # Voids 1 - Exam CONSTITUTIONAL: Appears comfortable, cooperative, no acute distress RESPIRATORY: Lungs sounds diminished bilaterally, left greater than right. Respirations even, nonlabored. Currently on 2 L nasal cannula with oxygen sat uration 92%. Able to achieve 1250 mL on incentive spirometry. Strong cough. CARDIOVASCULAR: S1, S2 present. Regular rate and rhythm, sinus rhythm on telemetry. Palpable peripheral pulses bilaterally. Bilateral lower extremity edema present. No calf pain or tenderness noted. SCDs present. GASTROINTESTINAL: Abdomen soft, nontender, nondistended. Active bowel sounds present 4 quadrants. Tolerating diet. Positive bowel movement. GENITOURINARY: Continues to void INTEGUMENTARY: Skin is warm and dry with evidence of good perfusion. NEUROLOGIC: Cranial nerves II through XII intact MUSKULOSKELETAL: Able to move all extremities, strength equal bilaterally PSYCHIATRIC: Alert and oriented to person place and time, appropriate affect, intact judgment and insight INVASIVE LINES AND TUBES: Left Pleurx catheter in place and connected to atrium, 50 mL drainage in the last 24 hours - Allied health notes Allied health notes reviewed: nursing - Labs CBC & Chem 7: 09/09/21 07:45 09/07/21 07:06 Labs: Abnormal Lab Results - Last 24 Hours (Table) 09/06/21 09/08/21 09/08/21 Range/Units 09:37 16:44 18:21 RBC (4.30-5.90) m/uL Hgb (13.0-17.5) gm/dL Hct (39.0-53.0) % RDW (11.5-15.5) % Lymphocytes # (1.0-4.8) k/uL POC Glucose (mg/dL) 248 H 230 H (75-99) mg/dL Crossmatch See Detail 09/08/21 09/09/21 09/09/21 Range/Units 21:47 05:56 07:45 RBC 2.51 L (4.30-5.90) m/uL Hgb 7.6 L (13.0-17.5) gm/dL Hct 22.7 L (39.0-53.0) % RDW 15.9 H (11.5-15.5) % Lymphocytes # 0.4 L (1.0-4.8) k/uL POC Glucose (mg/dL) 196 H 149 H (75-99) mg/dL Crossmatch Microbiology - Last 24 Hours (Table) 09/04/21 15:03 Gram Stain - Final Pleural Fluid Body Fluid Culture - Final 09/04/21 15:03 Anaerobic Culture - Final Pleural Fluid - Imaging and Cardiology Chest x-ray: report reviewed, image reviewed Assessment and Plan Assessment: 1. 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 Bilateral pleural effusions with history of recurrent left-sided pleural effusions status post left Pleurx catheter placement. Pleurx was placed at [facility] in April 2021, status post right thoracentesis on 09/04/[address] Palomo 3. Chronic kidney disease stage IV 4. New onset atrial fibrillation 5. Coronary artery disease with history of previous PCI and coronary artery bypass grafting surgery in 2016 6. History of COVID-19 infection 7. History of hypertension 8. History of hyperlipidemia 9. Insulin-dependent diabetes mellitus 10. Lifetime nonsmoker 11. Anemia 12. Leukocytosis Plan: 1. Continue to follow daily chest x-rays. 2. Pleurx catheter capped this morning. Would recommend drainage every other day 3. Encourage use of his incentive spirometry 10 times every hour while awake. 4. Medical management of other comorbidities per primary care service recommendations. 5. Will continue to see and an as-needed basis. If patient is still the hospital on Saturday will drain Pleurx catheter Time with Patient: Greater than 30
--- NOTE | 2021-09-09 10:28 | P.PN ---
Subjective Progress Note Date: 09/09/21 History of present illness This is a 71-year-old gentleman patient of Dr. Wyatt Pereira. He has underlying history of diabetes mellitus type 2, CAD with prior CABG, CK D stage III, h ypertension, history of melanoma was in remission until March when patient was noted to have metastatic melanoma with metastases to the lung with enlarged lymph nodes currently on immunotherapy. Patient had recent covid infection in September, with acute kidney injury secondary to covid infection September 2020 and follow Ernie since then. Patient was again admitted in November 09 for 2 days for acute diastolic congestive heart failure secondary to withdrawal off diuretics due to worsening kidney function. He was seen in the ER in March 20 for shortness of breath secondary to metastatic melanoma to his lungs with bilateral pleural effusions. Patient has been getting frequent thoracentesis and underwent pigtail catheter placement in the left chest in April. He was initially getting fluid removed up to 1 L every day but currently patient is getting fluid removed up to 550 mL once a week, last one 2 days ago. Patient has noticed poor appetite and increased shortness of breath for the past 1 week. He had his Covid booster 6 days ago following which he went to [facility] to have a brain MRI and CT. He received his immunotherapy 3 days ago. He has not recovered since then. His noticed poor appetite increased weakness associated with cough and shortness of breath. Patient was found to have low blood sugar in the low 30s which came back to normal. EKG demonstrated atrial fibrillation In the ER patient is noted to be hypoxic and was placed on 5 L of high flow still saturating at 89%. Otherwise patient is afebrile pulse 66 respiratory rate 18 blood pressure 127/58. He had a leukocytosis of 11, hemoglobin 9.9 platelet 225, BUN 109 creatinine 3.59. Sodium 139 potassium 3.4 chloride 110 [place] 18 [place] [id number] Chest x-ray on 08/26 suggests cardiomegaly with small left pleural effusion R [id number] interstitial edema concerning for CHF exacerbation was noted. CT chest was obtained that showed bilateral pleural effusion with basilar pulmonary airspace infiltrates and atelectasis significantly increased compared to old exam with cardiomegaly and mediastinotomy edema but the similar to old exam. 08/28: Patient has been seen and followed by cardiology with recommendations to continue current medications. Echocardiogram has been obtained and report is pending. Patient is also followed by nephrology with recommendations to continue diuretics, discontinue Norvasc. Repeat chest x-ray reveals stable bibasilar right greater than left patchy and interstitial opacities with stable moderate cardiomegaly, trace left pleural effusion may be on the basis of multif ocal pneumonia/atelectasis and/or heart failure. No pneumothorax. Patient has been afebrile, heart rate 62, blood pressure 126/66, pulse ox 94% on 6 L nasal cannula. Plan is to wean oxygen down. Repeat blood work reveals sodium 140, potassium 3.7, chloride 110, CO2 19, BUN 107, creatinine 3.86. Blood sugars are running mostly in the 300s this morning 133. Prandin 1 mg with meals added and Levemir increased to home dose of 35 units at bedtime. Patient has Albright catheter in place which we will have removed today and bladder scan postvoid. Home oxygen assessment to be done. 08/29: Patient is seen today on the cardiac stepdown unit. He is followed by nephrology with recommendations to maintain Albright catheter, avoid hypotension, nephro toxic agents and continue IV fluids at 50 ML's per hour. We have discontinued vancomycin. Patient has also been seen by cardiology. Patient is currently on Zosyn. VQ scan ordered to rule out pulmonary embolism due to ongoing hypoxia. Patient is requiring 6 L nasal cannula with pulse ox of 92%. He's been afebrile, heart rate 66, blood pressure 133/68. Repeat blood work reveals sodium 138, potassium 4.2, chloride 109, CO2 19, BUN 103 and creatinine 4.04. Blood sugars are running between 167 and 249.. Ultrasound of the right lower extremity revealed DVT but could not be determined if this was acute and suggest chronic component. Chest x-ray reveals heart failure underlying pneumonia not excluded. 08/30: Patient is currently on IV heparin for pulmonary embolism.patient does have history of lower extremity DVT which he states he completed course of anticoagulation. Discussed case with oncology and we will plan for eliquis, prescription is been sent to his pharmacy. Pneumonia has been ruled out and antibiotics will be discontinued. Patient has Albright catheter in place which will be discontinued today if okay with nephrology and check postvoid residual. The blood work reveals WBC 8.5, hemoglobin 8.0. BUN 107, creatinine 4.2, CO2 19. Patient has been seen by PT and OT with recommendations for home. 08/31: Albright Catheter was discontinued this morning and bladder scan is ordered for 1 PM. Patient has increased breath sounds on left-sided chest x-ray ordered today. Renal function is slightly improved from yesterday with BUN of 99 and creatinine 3.99. Hemoglobin 7.6. TSH is 2.740. Patient will be started on eliquis and heparin discontinued. She has been afebrile, heart rate 70, blood pressure 141/76, pulse ox 92% on 4 L nasal cannula. The patient may require home oxygen therapy and we will assess closer to discharge. Renal ultrasound revealed no hydronephrosis or nephrolithiasis. There is increased echogenicity of the renal cortex which can be sutured with chronic medical renal disease. Chest x-ray reveals correlate for heart failure otherwise diffuse pneumonia. Findings stable. 09/01: Patient has been afebrile, heart rate 69, blood pressure 167/79, pulse ox 91%. He is now on 7 L nasal cannula. Ultrasound of the chest will be done to evaluate pleural effusions. Patient was transitioned from heparin drip to eliquis yesterday and oncology wants him on eliquis for life. Patient continues to have lower extremity edema. Repeat blood work reveals BUN of 101, creatinine 3.88, CO2 of 20. Blood sugars are running between 130 and 182. We will ask for Dr. Suarez to evaluate for pneumonia. And patient started on Zosyn. Patient does have pleural cath in place which nurse tried to drain today but no output. 09/02: Hemoglobin this morning is 6.7 and patient will be transfused 1 unit of packed RBCs. Repeat blood work for tomorrow.Blood glucose ran between 100 and 180. One dose of IV Lasix ordered by nephrology. 09/03: Patient states that he has been sleeping in his chair because it is easier to breathe. He did require nonrebreather for a few hours during the night. We will order 1 dose of IV Lasix today 40 mg. He has been afebrile, heart rate 72, blood pressure 150/75 and pulse ox 93% on 9 L nasal cannula. Blood sugars have been running mostly between 9785 but only 68 this morning. Hemoglobin today is 7.6 after 1 unit of packed RBC dose infused yesterday. BUN 99 and creatinine 3.71. CO2 19. Patient is on sodium bicarb oral. He is followed closely by nephrology. Consult added for pulmonary medicine. 09/04: Cardiothoracic surgery drained half liter from Pleurx catheter on the left side and recommendations are for drainage on the right side. Interventional radiology added to perform this. At this time, plan is for Dr. Dee to do a right-sided thoracentesis on Saturday. We have transitioned patient off eliquis and onto heparin drip and this will need to be held 4 hours prior to procedure on Saturday. Patient has been afebrile, heart rate 70, blood pressure 148/67, pulse ox 91% on 8 L nasal cannula. Repeat blood work reveals WBC 9.3, hemoglobin 7.4. INR is 1.3. BUN 100 and creatinine 4.04. Blood sugars are running between 89 and 209. Pleural fluid is showing diphtheroid species. 09/05 patient examined bedside. He appears much pale than yesterday. Patient nurse called to him in the morning suggesting of left chest pain. Chest x-ray was obtained that suggested progression of pleural effusion. Patient had 1 L of serosanguineous drainage from the left pleural cavity this morning. Thoracentesis of the right 1750 ml were removed on 09/[address] Reinoso. Labs reviewed suggestive WBC of 19.9 hemoglobin 6.1 hematocrit 18.2 platelet 229 sodium 139 potassium 5.4 BUN 101 creatinine 4.26. Vitals reviewed suggestive of 97.9 pulse 63 respiratory rate 16 blood pressure 102/47 on 6 L high flow. Patient received 2 units of PRBC for low hemoglobin. Repeat hemoglobin in the evening. Due to progression of renal dysfunction plan for renal replacement therapy tomorrow with placement of permacath with vascular surgery. Prandin discontinued Levemir reduced to 10 units as patient's continues to have hypoglycemia 09/06: Patient was scheduled for catheter placement today with vascular surgery for hemodialysis but this was canceled due to hemoglobin of 6.1. He is scheduled for 2 units of packed RBCs. 1 L of sanguinous fluid was removed from the left pleura catheter. Patient is denying having any chest pain. He is currently on 6 L nasal cannula with pulse ox 97%, afebrile, heart rate 70s, blood pressure 99/37. Other lab work today reveals WBC 16.8. BUN 111, creatinine 5.12. Blood sugars are in the 100 and teens. 09/07: Patient now has pleural catheter to dependent drainage with sanguineous drainage. Patient had dialysis catheter placed yesterday to the right subclavian by Dr. Brody and patient had first dialysis treatment 09/06. He is scheduled for repeat dialysis today. Patient states his breathing is okay. He is down to 3 L nasal cannula. Regarding discharge planning, patient states that he is planning to go home and lives at home with his . Contacted Dr. Brody regarding placing a [place] filter which will be scheduled for tomorrow. 09/08: Patient underwent Fernie filter placement today with Dr. Brody. He has had no postop complications. Patient has left sided Pleurx catheter to dependent drainage and is having more serous versus sanguinous drainage. Hemoglobin today is 7.1 and patient will be transfused 1 unit of packed RBCs. Patient is scheduled for repeat hemodialysis today. Chest x-ray continues to show interstitial edema and small effusions. He has been afebrile, heart rate 70, blood pressure 139/63, pulse ox 91% on 4 L nasal cannula. Eliquis discontinued. 09/09: Patient is status post a [place] filter yesterday with Dr. Brody. He has no postop, patient at this time. His left-sided Pleurx catheter is dependent to drainage with serous drainage. It is recommended to be drained every other day. Hemoglobin 7.6 today. He did not receive his 1 unit of packed red blood cells yesterday. We will plan to infuse today. Hemodialysis was performed yesterday. Temperature 100.6, respirations 16, pulse rate 67, blood pressure 133/56 pulse ox 93% on 3 L. Review Of Systems: Constitutional: No fever, no chills, no night sweats. No weight change. Reports weakness,Reports fatigue no lethargy. No daytime sleepiness. EENT: No headache. No blurred vision or double vision, no loss of vision. No nasal drainage or congestion. No epistaxis. No sore throat. Lungs: Reports shortness of breath, stable , occasional cough, no sputum product ion. No wheezing. Cardiovascular: No chest pain, no lower extremity edema. No palpitations. No paroxysmal nocturnal dyspnea. Reports orthopnea. No lightheadedness or dizziness. No syncopal episodes. Abdominal: No abdominal pain. No nausea, vomiting. No diarrhea. No constipation. No bloody or tarry stools.. No loss of appetite. Genitourinary: No dysuria, increased frequency, urgency. No urinary retention. Musculoskeletal: No myalgias. Reports muscle weakness, no gait dysfunction, no frequent falls. No back pain. No neck pain. Integumentary: No wounds, no lesions. No rash or pruritus. No unusual bruising. Neurologic: No aphasia. No facial droop. No change in mentation. No head injury. No headache. No paralysis. No paresthesia. Psychiatric: No depression. No anxiety. No mood swings. Endocrine: Noted abnormal blood sugars. No weight change. No excessive sweating or thirst. No cold intolerance. Physical exam Gen: This is a 71-year-old male. He is resting inreclinerppears to be comfortable. He is currently on O2 at 4 L. HEENT: Head is atraumatic, normocephalic. Pupils equal, round. Sclerae is anicteric. NECK: Supple. No JVD. No lymphadenopathy. No thyromegaly. LUNGS: Decreased breath sounds bilaterally with bilateral crackles in the bases. Pleural catheter in the left side to dependent drainage. No intercostal retrac tions. HEART: Irregularly irregular rate and rhythm. No murmur. ABDOMEN: Soft. Bowel sounds are present. No masses. No tenderness. EXTREMITIES: Bilateral pedal edema. No calf tenderness. NEUROLOGICAL: Patient is awake, alert and oriented x3. Cranial nerves 2 through 12 are grossly intact. Assessment and plan 1. Acute diastolic heart failure, ejection fraction 55-60% with severe concentric left ventricle hypertrophy and moderate to severe pulmonary hypertension moderate tricuspid regurgitation on October 2020. IV Lasix 40 mg daily. Monitor I&O and daily weights, also followed by cardiology. 2. Acute hypoxic respiratory failure secondary to CHF exacerbation and bilateral pleural effusions, pulmonary embolism, pneumonia possible. She is status post Fernie filter, no eliquis. Continue Zosyn, consult with infectious disease appreciated. Consult added for pulmonary medicine. 3. Acute kidney injury secondary to ATN with cardiorenal syndrome on chronic kidney disease stage IV secondary to diabetic kidney disease with baseline creatinine 2.5. Nephrology consult appreciated, avoid nephrotoxic agents, monitor renal function. Desmopressin 24 g 1. Patient has dialysis catheter placement by Dr. Brody and started on hemodialysis 09/06. supply chain program manager is making arrangements for outpatient hemodialysis. 4. New onset paroxysmal atrial fibrillation. Continue Coreg 12.5 twice a d, eliquis discontinued due to bloody pleural effusion. [place] filter insertion done by Dr. Brody 09/08. 5. Metastatic melanoma with metastasis to the lung and lymph nodes enlargement. On immunotherapy, follows Dr. Umaña. Consult with oncology appreciated. 6. Recurrent pleural effusion With pleural cath involving the left pleural cavity. Follows cardiothoracic surgeon at the [facility]. cardiothoracic surgery consult appreciated. 7. Hypoglycemia with history Diabetes mellitus type 2, hypoglycemia resolved. A1c 8.8. Levemir decreased to 10 units at bedtime, Prandin discontinued, Insulin sliding scale. 8. Anemia of kidney disease with acute blood loss anemia secondary to pleural effusion. Patient is status post iron infusion, s/p 4 unit of packed RBCs. Hemoglobin 7.6 today. We will transfuse 1 unit that is ready. Continue Aranesp. 9. CAD with prior CABG in the past, status post occlusive disease in the LAD, and diagonal branch. Continue aspirin, Coreg, Lipitor 80 mg daily 10. Covid infection 19 on 10/18, Received Covid booster 1 week 11. Uncontrolled hypertension. Coreg 12.5 mg twice daily, hydralazine 25 mg twice daily, 12. Hyperlipidemia. Continue atorvastatin 80 mg daily 13. History of GI bleed, none currently, was previously on Eliquis. Patient on aspirin only at admission. 14. DVT prophylaxis. hold eliquis CODE STATUS: full code DISCHARGE PLAN Home. Impression and plan of care have been directed as dictated by the signing physician. Melania Pope nurse practitioner acting as scribe for signing physician. Objective - Vital Signs Vital signs: Vital Signs Temp 100.6 F H 09/09/21 08:00 Pulse 67 09/09/21 08:00 Resp 16 09/09/21 08:00 BP 133/56 09/09/21 08:00 Pulse Ox 93 L 09/09/21 08:00 Intake & Output 09/08/21 09/09/21 09/09/21 18:59 06:59 18:59 Intake Total 100 118 Output Total 2240 10 10 Balance -213910 108 Weight 86.4 kg Intake: IV 100 Oral 118 Output: Chest Tube Drainage 10 10 Pleural Catheter Left 10 10 Drainage 40 Left Chest 40 Urine 200 Hemodialysis 2000 Other: Voiding Method Urinal Urinal Urinal # Voids 1 - Labs CBC & Chem 7: 09/09/21 07:45 09/07/21 07:06 Labs: Abnormal Lab Results - Last 24 Hours (Table) 09/06/21 09/08/21 09/08/21 Range/Units 09:37 16:44 18:21 RBC (4.30-5.90) m/uL Hgb (13.0-17.5) gm/dL Hct (39.0-53.0) % RDW (11.5-15.5) % Lymphocytes # (1.0-4.8) k/uL POC Glucose (mg/dL) 248 H 230 H (75-99) mg/dL Crossmatch See Detail 09/08/21 09/09/21 09/09/21 Range/Units 21:47 05:56 07:45 RBC 2.51 L (4.30-5.90) m/uL Hgb 7.6 L (13.0-17.5) gm/dL Hct 22.7 L (39.0-53.0) % RDW 15.9 H (11.5-15.5) % Lymphocytes # 0.4 L (1.0-4.8) k/uL POC Glucose (mg/dL) 196 H 149 H (75-99) mg/dL Crossmatch Microbiology - Last 24 Hours (Table) 09/04/21 15:03 Gram Stain - Final Pleural Fluid Body Fluid Culture - Final 09/04/21 15:03 Anaerobic Culture - Final Pleural Fluid
--- NOTE | 2021-09-09 10:29 | P.PN ---
Subjective Progress Note Date: 09/09/21 Principal diagnosis: This is 71-year-old male seen in consultation because of acute kidney injury secondary to cardiorenal syndrome, chronic kidney disease stage IV, came in with hypoglycemia. He was started on dialysis on 09/06/2021 As of this morning he is feeling comfortable, on nasal cannula oxygen Denies any chest pain shortness of breath Nausea vomiting appetite is good she is able to walk. His urine output has gone down though. Last urine output is documented at 200 mL only. Is a permacath on the right side, he is to be discharged home soon, his dialysis unit and his the [facility] dialysis Objective - Vital Signs Vital signs: Vital Signs Temp 100.6 F H 09/09/21 08:00 Pulse 67 09/09/21 08:00 Resp 16 09/09/21 08:00 BP 133/56 09/09/21 08:00 Pulse Ox 93 L 09/09/21 08:00 Intake & Output 09/08/21 09/09/21 09/09/21 18:59 06:59 18:59 Intake Total 100 118 Output Total 2240 10 10 Balance -2140 -10 108 Weight 86.4 kg Intake: IV 100 Oral 118 Output: Chest Tube Drainage 10 10 Pleural Catheter Left 10 10 Drainage 40 Left Chest 40 Urine 200 Hemodialysis 2000 Other: Voiding Method Urinal Urinal Urinal # Voids 1 On exam awake alert oriented comfortable HEENT exam no JVP neck is supple no facial asymmetry Lungs are clear to auscultation good air entry bilaterally Heart sounds are unremarkable for any murmur rub gallop Abdomen soft nontender Extremity exam was 2+ edema Neurologically awake alert oriented - Labs CBC & Chem 7: 09/09/21 07:45 09/07/21 07:06 Labs: Abnormal Lab Results - Last 24 Hours (Table) 09/06/21 09/08/21 09/08/21 Range/Units 09:37 16:44 18:21 RBC (4.30-5.90) m/uL Hgb (13.0-17.5) gm/dL Hct (39.0-53.0) % RDW (11.5-15.5) % Lymphocytes # (1.0-4.8) k/uL POC Glucose (mg/dL) 248 H 230 H (75-99) mg/dL Crossmatch See Detail 09/08/21 09/09/21 09/09/21 Range/Units 21:47 05:56 07:45 RBC 2.51 L (4.30-5.90) m/uL Hgb 7.6 L (13.0-17.5) gm/dL Hct 22.7 L (39.0-53.0) % RDW 15.9 H (11.5-15.5) % Lymphocytes # 0.4 L (1.0-4.8) k/uL POC Glucose (mg/dL) 196 H 149 H (75-99) mg/dL Crossmatch Microbiology - Last 24 Hours (Table) 09/04/21 15:03 Gram Stain - Final Pleural Fluid Body Fluid Culture - Final 09/04/21 15:03 Anaerobic Culture - Final Pleural Fluid Assessment and Plan Assessment: Impression 1. Hemodialysis dependent acute kidney injury from cardiorenal syndrome started on dialysis last dialysis yesterday for dialysis on 09/06/2021. Additionally chronic kidney disease secondary to diabetic nephropathy with a baseline creatinine of 2.5 2. Mild to moderate edema 3. Congestive heart failure compensated 4. Anemia of chronic kidney disease hemoglobin 7.6 5. Iron saturation is 16.7 on 08/31/2021 6. History of coronary artery disease, atrial fibrillation 7. History of IVC placement on 09/08/2021 Recommendation 1. He can be discharged home and continue his dialysis at the [facility] unit 2. Increase the torsemide to 80 mg a day upon discharge
[2021-09-09] MEDS ORDERED: PEG 3350-NA SULF,BICARB,CL/KCL 4,000 ML BOTTLE PO ONE (12:05)
--- NOTE | 2021-09-09 12:07 | P.PN ---
Subjective Progress Note Date: 09/09/21 Principal diagnosis: GI bleed Patient appears comfortable. Denies pain. T-max 100.6 vital signs stable. Hemoglobin 7.6 today. Receiving 1 unit of blood currently. Objective - Vital Signs Vital signs: Vital Signs Temp 100.3 F H 09/09/21 11:19 Pulse 70 09/09/21 11:19 Resp 16 09/09/21 11:19 BP 142/65 09/09/21 11:19 Pulse Ox 94 L 09/09/21 11:19 Intake & Output 09/08/21 09/09/21 09/09/21 18:59 06:59 18:59 Intake Total 100 118 Output Total 2240 10 10 Balance -2139 -10 108 Weight 86.4 kg Intake: IV 100 Oral 118 Blood Product 0 Rc As-1 Unit 0 [id number] Output: Chest Tube Drainage 10 10 Pleural Catheter Left 10 10 Drainage 40 Left Chest 40 Urine 200 Hemodialysis 2000 Other: Voiding Method Urinal Urinal Urinal # Voids 1 - Exam Abdomen: Soft, nondistended, nontender - Labs CBC & Chem 7: 09/09/21 07:45 09/07/21 07:06 Labs: Abnormal Lab Results - Last 24 Hours (Table) 09/06/21 09/08/21 09/08/21 Range/Units 09:37 16:44 18:21 RBC (4.30-5.90) m/uL Hgb (13.0-17.5) gm/dL Hct (39.0-53.0) % RDW (11.5-15.5) % Lymphocytes # (1.0-4.8) k/uL POC Glucose (mg/dL) 248 H 230 H (75-99) mg/dL Crossmatch See Detail 09/08/21 09/09/21 09/09/21 Range/Units 21:47 05:56 07:45 RBC 2.51 L (4.30-5.90) m/uL Hgb 7.6 L (13.0-17.5) gm/dL Hct 22.7 L (39.0-53.0) % RDW 15.9 H (11.5-15.5) % Lymphocytes # 0.4 L (1.0-4.8) k/uL POC Glucose (mg/dL) 196 H 149 H (75-99) mg/dL Crossmatch Microbiology - Last 24 Hours (Table) 09/04/21 15:03 Gram Stain - Final Pleural Fluid Body Fluid Culture - Final 09/04/21 15:03 Anaerobic Culture - Final Pleural Fluid Assessment and Plan (1) Anemia Narrative/Plan: 71-year-old male with anemia and possible GI bleed. Options again discussed with the patient in detail. He is agreeable for endoscopy at this time. We'll proceed with upper and lower endoscopy tomorrow. Current Visit: Yes Status: Acute Priority: High Code(s): D64.9 - ANEMIA, UNSPECIFIED SNOMED Code(s): 599133631
[2021-09-09 12:12] LABS: Glucose,Whole Blood 213 mg/dL (75-99)
[2021-09-09 16:44] LABS: Glucose,Whole Blood 183 mg/dL (75-99)
[2021-09-09 20:11] LABS: Glucose,Whole Blood 148 mg/dL (75-99)
[2021-09-09] MEDS: INSULIN DETEMIR (LEVEMIR) 100 UNIT/ML SYR SQ SCH (20:52)
--- NOTE | 2021-09-10 00:39 | PN ---
PROGRESS NOTE DATE OF SERVICE: 07/2021 REASON FOR FOLLOWUP: Possible pneumonia. INTERVAL HISTORY: Patient did have a low-grade fever of 100.6-99.7 this morning. The patient is afebrile since then. The patient chest tube has been discontinued. Denies any chest pain. No worsening cough or sputum production. No abdominal pain. No diarrhea. PHYSICAL EXAMINATION: Blood pressure is 147/70 with pulse of 60, temperature is 97.9. He is 93% on 4 L nasal cannula. General description is an elderly male lying in bed in no distress. Respiratory system: Unlabored breathing, decreased breath sounds in the base. No wheeze. Heart S1, S2. Regular rate and rhythm. Abdomen soft, no tenderness. LABS: Chest x-ray done this morning prior exam component of edema or pneumonia. The patient did have a white count normal at 6.4. DIAGNOSTIC IMPRESSION AND PLAN: Patient with new fever in this patient who did have a left-sided pleural effusion status post chest tube placement which was today. The patient pleural fluid culture negative and the patient antibiotic was discontinued yesterday. We will repeat CBC, procalcitonin, and blood cultures. If any further fever, we will have to restart his antibiotics. For now, we will monitor the patient closely off antibiotic while waiting for repeat culture to finalize. Continue supportive care. MMODL / IJN: [id number] /
[2021-09-10] MEDS: CALCIUM ACETATE 667 MG TAB PO SCH ×3 (06:27→16:46)
[2021-09-10] MEDS: INSULIN ASPART (NovoLOG) 100 UNIT/ML VIAL SQ SCH ×3 (06:27→16:45)
[2021-09-10] MEDS: carvediloL 12.5 MG TAB PO SCH ×2 (07:01→16:46)
[2021-09-10 07:03] LABS: Glucose,Whole Blood 131 mg/dL (75-99)
[2021-09-10 07:35] LABS: Basophils % (A) 0 %; Eosinophils # (A) 0.3 k/uL (0-0.7); Eosinophils % (A) 4 %; HCT 24.7 % (39.0-53.0); HGB 8.3 gm/dL (13.0-17.5); Hypochromasia Slight; Lymphocytes # (A) 0.4 k/uL (1.0-4.8); Lymphocytes % (A) 5 %; MCHC 33.6 g/dL (31.0-37.0); MCV 89.2 fL (80.0-100.0); Mean Platelet Volume 7.3; Monocytes # (A) 0.5 k/uL (0-1.0); Monocytes % (A) 7 %; Neutrophils # (A) 5.8 k/uL (1.3-7.7); Neutrophils % (A) 80 %; Platelet Count 173 k/uL (150-450); Poikilocytosis Slight; RBC 2.77 m/uL (4.30-5.90); RDW 15.1 % (11.5-15.5); WBC 7.2 k/uL (3.8-10.6)
[2021-09-10 07:49] LABS: Calcium 7.6 mg/dL (8.4-10.2); Potassium 4.2 mmol/L (3.5-5.1)
[2021-09-10] MEDS ORDERED: SODIUM CHLORIDE 0.9% 500 ML 500 ML IV ONE (08:00)
[2021-09-10] MEDS ORDERED: PROPOFOL 10 MG/ML 20 ML VIAL IV ONE (08:00)
[2021-09-10 08:06] LABS: C Reactive Protein 17.2 mg/dL (<1.0)
--- NOTE | 2021-09-10 08:32 | P.PCN ---
Date of Procedure: 09/10/21 Procedure(s) Performed: PREOPERATIVE DIAGNOSIS: GI bleed/anemia POSTOPERATIVE DIAGNOSIS: Mild duodenitis, mild gastritis, small hiatal hernia, mild diverticulosis, previous colonic tattoo noted PROCEDURE: 1. EGD 2. Colonoscopy [place] [facility] [place]: Charles Peck M.D. SPECIMENS: None ENDOSCOPIC PROCEDURE: The patient was on the endoscopy table in the left decubitus position. The Olympus gastroscope was inserted into the oropharynx and passed under direct visualization to the region of the third portion of the duodenum. From that point the scope was slowly withdrawn inspecting all surfaces carefully. There was noted to be mild blood in hiatus. There was no evidence of recent or active bleeding. The pylorus was widely patent. The stomach was carefully inspected. The patient had minimal gastritis. Retroflexion revealed a small sliding hiatal hernia. There was no significant inflammatory changes in the esophagus. No biopsies were taken during the upper endoscopy. The patient was kept on the endoscopy table in the left decubitus position. The Olympus colonoscope was inserted into the anus and passed under direct visualization to the base of the cecum. The appendiceal orifice was visualized. From that point the scope was slowly withdrawn inspecting all surfaces carefu lly. There were no neoplastic inflammatory or polypoid lesions throughout the cecum, ascending, transverse, descending, sigmoid and rectum. There was minimal left-sided diverticulosis noted. We did notice some tattooing of the hepatic flexure. In that area there was no mucosal irregularities. This is likely the site that was previously concerning for malignancy 2 years ago. Digital rectal examination revealed prominent internal hemorrhoids but there was no evidence of recent or active bleeding. The patient was taken to the recovery room in stable condition per anesthesia guidelines. RECOMMENDATIONS: Resume diet. No contraindication to anticoagulation based on endoscopic evaluation. Continue antiacid therapy postdischarge.
[2021-09-10] MEDS: amLODIPine 5 MG TAB PO SCH (09:00)
[2021-09-10] MEDS: hydrALAZINE HCL 50 MG TAB PO SCH ×3 (09:00→21:49)
[2021-09-10] MEDS: TORSEMIDE 20 MG TAB PO SCH (09:00)
[2021-09-10] MEDS: SODIUM BICARBONATE TAB 650 MG TAB PO SCH ×2 (09:00→21:49)
[2021-09-10] MEDS: ATORVASTATIN 80 MG TAB PO SCH (09:00)
[2021-09-10] MEDS: ERGOCALCIFEROL 1,250 MCG (50,000 IU) CAPSULE PO SCH (09:01)
[2021-09-10] MEDS: ASPIRIN 81 MG PO SCH (09:01)
--- NOTE | 2021-09-10 09:54 | P.PN ---
Subjective Progress Note Date: 09/10/21 History of present illness This is a 71-year-old gentleman patient of Dr. Wyatt Pereira. He has underlying history of diabetes mellitus type 2, CAD with prior CABG, CK D stage III, h ypertension, history of melanoma was in remission until March when patient was noted to have metastatic melanoma with metastases to the lung with enlarged lymph nodes currently on immunotherapy. Patient had recent covid infection in September, with acute kidney injury secondary to covid infection September 2020 and follow Ernie since then. Patient was again admitted in November 09 for 2 days for acute diastolic congestive heart failure secondary to withdrawal off diuretics due to worsening kidney function. He was seen in the ER in March 20 for shortness of breath secondary to metastatic melanoma to his lungs with bilateral pleural effusions. Patient has been getting frequent thoracentesis and underwent pigtail catheter placement in the left chest in April. He was initially getting fluid removed up to 1 L every day but currently patient is getting fluid removed up to 550 mL once a week, last one 2 days ago. Patient has noticed poor appetite and increased shortness of breath for the past 1 week. He had his Covid booster 6 days ago following which he went to [facility] to have a brain MRI and CT. He received his immunotherapy 3 days ago. He has not recovered since then. His noticed poor appetite increased weakness associated with cough and shortness of breath. Patient was found to have low blood sugar in the low 30s which came back to normal. EKG demonstrated atrial fibrillation In the ER patient is noted to be hypoxic and was placed on 5 L of high flow still saturating at 89%. Otherwise patient is afebrile pulse 66 respiratory rate 18 blood pressure 127/58. He had a leukocytosis of 11, hemoglobin 9.9 platelet 225, BUN 109 creatinine 3.59. Sodium 139 potassium 3.4 chloride 110 bicarb 18 [place] [address] Chest x-ray on 08/26 suggests cardiomegaly with small left pleural effusion R [id number] interstitial edema concerning for CHF exacerbation was noted. CT chest was obtained that showed bilateral pleural effusion with basilar pulmonary airspace infiltrates and atelectasis significantly increased compared to old exam with cardiomegaly and mediastinotomy edema but the similar to old exam. 08/28: Patient has been seen and followed by cardiology with recommendations to continue current medications. Echocardiogram has been obtained and report is pending. Patient is also followed by nephrology with recommendations to continue diuretics, discontinue Norvasc. Repeat chest x-ray reveals stable bibasilar right greater than left patchy and interstitial opacities with stable moderate cardiomegaly, trace left pleural effusion may be on the basis of multif ocal pneumonia/atelectasis and/or heart failure. No pneumothorax. Patient has been afebrile, heart rate 62, blood pressure 126/66, pulse ox 94% on 6 L nasal cannula. Plan is to wean oxygen down. Repeat blood work reveals sodium 140, potassium 3.7, chloride 110, CO2 19, BUN 107, creatinine 3.86. Blood sugars are running mostly in the 300s this morning 133. Prandin 1 mg with meals added and Levemir increased to home dose of 35 units at bedtime. Patient has Albright catheter in place which we will have removed today and bladder scan postvoid. Home oxygen assessment to be done. 08/29: Patient is seen today on the cardiac stepdown unit. He is followed by nephrology with recommendations to maintain Albright catheter, avoid hypotension, nephro toxic agents and continue IV fluids at 50 ML's per hour. We have discontinued vancomycin. Patient has also been seen by cardiology. Patient is currently on Zosyn. VQ scan ordered to rule out pulmonary embolism due to ongoing hypoxia. Patient is requiring 6 L nasal cannula with pulse ox of 92%. He's been afebrile, heart rate 66, blood pressure 133/68. Repeat blood work reveals sodium 138, potassium 4.2, chloride 109, CO2 19, BUN 103 and creatinine 4.04. Blood sugars are running between 167 and 249.. Ultrasound of the right lower extremity revealed DVT but could not be determined if this was acute and suggest chronic component. Chest x-ray reveals heart failure underlying pneumonia not excluded. 08/30: Patient is currently on IV heparin for pulmonary embolism.patient does have history of lower extremity DVT which he states he completed course of anticoagulation. Discussed case with oncology and we will plan for eliquis, prescription is been sent to his pharmacy. Pneumonia has been ruled out and antibiotics will be discontinued. Patient has Albright catheter in place which will be discontinued today if okay with nephrology and check postvoid residual. The blood work reveals WBC 8.5, hemoglobin 8.0. BUN 107, creatinine 4.2, CO2 19. Patient has been seen by PT and OT with recommendations for home. 08/31: Albright Catheter was discontinued this morning and bladder scan is ordered for 1 PM. Patient has increased breath sounds on left-sided chest x-ray ordered today. Renal function is slightly improved from yesterday with BUN of 99 and creatinine 3.99. Hemoglobin 7.6. TSH is 2.740. Patient will be started on eliquis and heparin discontinued. She has been afebrile, heart rate 70, blood pressure 141/76, pulse ox 92% on 4 L nasal cannula. The patient may require home oxygen therapy and we will assess closer to discharge. Renal ultrasound revealed no hydronephrosis or nephrolithiasis. There is increased echogenicity of the renal cortex which can be sutured with chronic medical renal disease. Chest x-ray reveals correlate for heart failure otherwise diffuse pneumonia. Findings stable. 09/01: Patient has been afebrile, heart rate 69, blood pressure 167/79, pulse ox 91%. He is now on 7 L nasal cannula. Ultrasound of the chest will be done to evaluate pleural effusions. Patient was transitioned from heparin drip to eliquis yesterday and oncology wants him on eliquis for life. Patient continues to have lower extremity edema. Repeat blood work reveals BUN of 101, creatinine 3.88, CO2 of 20. Blood sugars are running between 130 and 182. We will ask for Dr. Suarez to evaluate for pneumonia. And patient started on Zosyn. Patient does have pleural cath in place which nurse tried to drain today but no output. 09/02: Hemoglobin this morning is 6.7 and patient will be transfused 1 unit of packed RBCs. Repeat blood work for tomorrow.Blood glucose ran between 100 and 180. One dose of IV Lasix ordered by nephrology. 09/03: Patient states that he has been sleeping in his chair because it is easier to breathe. He did require nonrebreather for a few hours during the night. We will order 1 dose of IV Lasix today 40 mg. He has been afebrile, heart rate 72, blood pressure 150/75 and pulse ox 93% on 9 L nasal cannula. Blood sugars have been running mostly between 9785 but only 68 this morning. Hemoglobin today is 7.6 after 1 unit of packed RBC dose infused yesterday. BUN 99 and creatinine 3.71. CO2 19. Patient is on sodium bicarb oral. He is followed closely by nephrology. Consult added for pulmonary medicine. 09/04: Cardiothoracic surgery drained half liter from Pleurx catheter on the left side and recommendations are for drainage on the right side. Interventional radiology added to perform this. At this time, plan is for Dr. Dee to do a right-sided thoracentesis on Saturday. We have transitioned patient off eliquis and onto heparin drip and this will need to be held 4 hours prior to procedure on Saturday. Patient has been afebrile, heart rate 70, blood pressure 148/67, pulse ox 91% on 8 L nasal cannula. Repeat blood work reveals WBC 9.3, hemoglobin 7.4. INR is 1.3. BUN 100 and creatinine 4.04. Blood sugars are running between 89 and 209. Pleural fluid is showing diphtheroid species. 09/05 patient examined bedside. He appears much pale than yesterday. Patient nurse called to him in the morning suggesting of left chest pain. Chest x-ray was obtained that suggested progression of pleural effusion. Patient had 1 L of serosanguineous drainage from the left pleural cavity this morning. Thoracentesis of the right 1750 ml were removed on 09/[address] Reinoso. Labs reviewed suggestive WBC of 19.9 hemoglobin 6.1 hematocrit 18.2 platelet 229 sodium 139 potassium 5.4 BUN 101 creatinine 4.26. Vitals reviewed suggestive of 97.9 pulse 63 respiratory rate 16 blood pressure 102/47 on 6 L high flow. Patient received 2 units of PRBC for low hemoglobin. Repeat hemoglobin in the evening. Due to progression of renal dysfunction plan for renal replacement therapy tomorrow with placement of permacath with vascular surgery. Prandin discontinued Levemir reduced to 10 units as patient's continues to have hypoglycemia 09/06: Patient was scheduled for catheter placement today with vascular surgery for hemodialysis but this was canceled due to hemoglobin of 6.1. He is scheduled for 2 units of packed RBCs. 1 L of sanguinous fluid was removed from the left pleura catheter. Patient is denying having any chest pain. He is currently on 6 L nasal cannula with pulse ox 97%, afebrile, heart rate 70s, blood pressure 99/37. Other lab work today reveals WBC 16.8. BUN 111, creatinine 5.12. Blood sugars are in the 100 and teens. 09/07: Patient now has pleural catheter to dependent drainage with sanguineous drainage. Patient had dialysis catheter placed yesterday to the right subclavian by Dr. Brody and patient had first dialysis treatment 09/06. He is scheduled for repeat dialysis today. Patient states his breathing is okay. He is down to 3 L nasal cannula. Regarding discharge planning, patient states that he is planning to go home and lives at home with his . Contacted Dr. Brody regarding placing a Pateros filter which will be scheduled for tomorrow. 09/08: Patient underwent Fernie filter placement today with Dr. Brody. He has had no postop complications. Patient has left sided Pleurx catheter to dependent drainage and is having more serous versus sanguinous drainage. Hemoglobin today is 7.1 and patient will be transfused 1 unit of packed RBCs. Patient is scheduled for repeat hemodialysis today. Chest x-ray continues to show interstitial edema and small effusions. He has been afebrile, heart rate 70, blood pressure 139/63, pulse ox 91% on 4 L nasal cannula. Eliquis discontinued. 09/09: Patient is status post a Pateros filter yesterday with Dr. Brody. He has no postop, patient at this time. His left-sided Pleurx catheter is dependent to drainage with serous drainage. It is recommended to be drained every other day. Hemoglobin 7.6 today. He did not receive his 1 unit of packed red blood cells yesterday. We will plan to infuse today. Hemodialysis was performed yesterday. Temperature 100.6, respirations 16, pulse rate 67, blood pressure 133/56 pulse ox 93% on 3 L. 09/10: Patient is status post EGD colonoscopy. Findings no contraindication to anticoagulation based on endoscopic evaluation. Continue antacid therapy post discharge. he may resume diet. Left-sided Pleurx catheters dependent drainage is serous drainage. Recommendation for drainage on Saturday. Hemoglobin 8.3 today after 1 unit packed red blood cell infusion. Patient did have an elevated temperature of 100.6 yesterday while transfusion was in process. Patient has had a febrile today. Heart rate 69, respirations 18, blood pressure 136/73 pulse ox 93% on 2 L nasal cannula. Review Of Systems: Constitutional: No fever, no chills, no night sweats. No weight change. Repor ts weakness,Reports fatigue no lethargy. No daytime sleepiness. EENT: No headache. No blurred vision or double vision, no loss of vision. No nasal drainage or congestion. No epistaxis. No sore throat. Lungs: Reports shortness of breath, stable , occasional cough, no sputum production. No wheezing. Cardiovascular: No chest pain, no lower extremity edema. No palpitations. No paroxysmal nocturnal dyspnea. Reports orthopnea. No lightheadedness or dizziness. No syncopal episodes. Abdominal: No abdominal pain. No nausea, vomiting. No diarrhea. No constipation. No bloody or tarry stools.. No loss of appetite. Genitourinary: No dysuria, increased frequency, urgency. No urinary retention. Musculoskeletal: No myalgias. Reports muscle weakness, no gait dysfunction, no frequent falls. No back pain. No neck pain. Integumentary: No wounds, no lesions. No rash or pruritus. No unusual bruising. Neurologic: No aphasia. No facial droop. No change in mentation. No head injury. No headache. No paralysis. No paresthesia. Psychiatric: No depression. No anxiety. No mood swings. Endocrine: Noted abnormal blood sugars. No weight change. No excessive sweating or thirst. No cold intolerance. Physical exam Gen: This is a 71-year-old male. He is resting bed appears to be comfortable. He is currently on O2 at 2 L. HEENT: Head is atraumatic, normocephalic. Pupils equal, round. Sclerae is anicteric. NECK: Supple. No JVD. No lymphadenopathy. No thyromegaly. LUNGS: Decreased breath sounds bilaterally with bilateral crackles in the bases. Pleural catheter in the left side to dependent drainage. No intercostal retractions. HEART: Irregularly irregular rate and rhythm. No murmur. ABDOMEN: Soft. Bowel sounds are present. No masses. No tenderness. EXTREMITIES: Bilateral pedal edema. No calf tenderness. NEUROLOGICAL: Patient is awake, alert and oriented x3. Cranial nerves 2 through 12 are grossly intact. Assessment and plan 1. Acute diastolic heart failure, ejection fraction 55-60% with severe concentr ic left ventricle hypertrophy and moderate to severe pulmonary hypertension moderate tricuspid regurgitation on October 2020. IV Lasix 40 mg daily. Monitor I&O and daily weights, also followed by cardiology. 2. Acute hypoxic respiratory failure secondary to CHF exacerbation and bilateral pleural effusions, pulmonary embolism, pneumonia possible. She is status post Pateros filter, no eliquis. Continue Zosyn, consult with infectious disease appreciated. Consult added for pulmonary medicine. 3. Acute kidney injury secondary to ATN with cardiorenal syndrome on chronic kidney disease stage IV secondary to diabetic kidney disease with baseline creatinine 2.5. Nephrology consult appreciated, avoid nephrotoxic agents, monitor renal function. Desmopressin 24 g 1. Patient has dialysis catheter placement by Dr. Brody and started on hemodialysis 09/06. member certification manager is making arrangements for outpatient hemodialysis. 4. New onset paroxysmal atrial fibrillation. Continue Coreg 12.5 twice a d, eliquis discontinued due to bloody pleural effusion. Fernie filter insertion done by Dr. Brody 09/08. 5. Metastatic melanoma with metastasis to the lung and lymph nodes enlargement. On immunotherapy, follows Dr. Umaña. Consult with oncology appreciated. 6. Recurrent pleural effusion With pleural cath involving the left pleural cavity. Follows cardiothoracic surgeon at the [facility]. cardiothoracic surgery consult appreciated. 7. Hypoglycemia with history Diabetes mellitus type 2, hypoglycemia resolved. A1c 8.8. Levemir decreased to 10 units at bedtime, Prandin discontinued, Insulin sliding scale. 8. Anemia of kidney disease with acute blood loss anemia secondary to pleural effusion. Patient is status post iron infusion, s/p 5 unit of packed RBCs. Hemoglobin 8.3 today. Status post colonoscopy EGD results noted above. Continue Aranesp. 9. CAD with prior CABG in the past, status post occlusive disease in the LAD, and diagonal branch. Continue aspirin, Coreg, Lipitor 80 mg daily 10. Covid infection 19 on 10/18, Received Covid booster 1 week 11. Uncontrolled hypertension. Coreg 12.5 mg twice daily, hydralazine 25 mg twice daily, 12. Hyperlipidemia. Continue atorvastatin 80 mg daily 13. History of GI bleed, none currently, was previously on Eliquis. Patient on aspirin only at admission. 14. DVT prophylaxis. hold eliquis CODE STATUS: full code DISCHARGE PLAN Home possibly Saturday. Impression and plan of care have been directed as dictated by the signing physician. Melania Pope nurse practitioner acting as scribe for signing physician. Objective - Vital Signs Vital signs: Vital Signs Temp 99 F 09/10/21 08:00 Pulse 69 09/10/21 08:00 Resp 16 09/10/21 08:00 BP 150/67 09/10/21 08:00 Pulse Ox 91 L 09/10/21 08:00 Intake & Output 09/09/21 09/10/21 09/10/21 18:59 06:59 18:59 Intake Total 664 50 Output Total 11 1 Balance 653 -1 50 Weight 84.7 kg Intake: IV 50 Oral 354 Blood Product 310 Rc As-1 Unit 310 [id number] Output: Chest Tube Drainage 10 Pleural Catheter Left 10 Urine 1 1 Other: Voiding Method Urinal Urinal # Voids 0 2 0 # Bowel Movements 4 - Labs CBC & Chem 7: 09/10/21 06:42 09/10/21 06:42 Labs: Abnormal Lab Results - Last 24 Hours (Table) 09/06/21 09/09/21 09/09/21 Range/Units 09:37 12:10 16:43 RBC (4.30-5.90) m/uL Hgb (13.0-17.5) gm/dL Hct (39.0-53.0) % Lymphocytes # (1.0-4.8) k/uL BUN (9-20) mg/dL Creatinine (0.66-1.25) mg/dL Glucose (74-99) mg/dL POC Glucose (mg/dL) 213 H 183 H (75-99) mg/dL Calcium (8.4-10.2) mg/dL C-Reactive Protein (<1.0) mg/dL Crossmatch See Detail 09/09/21 09/10/21 09/10/21 Range/Units 20:09 06:42 06:42 RBC 2.77 L (4.30-5.90) m/uL Hgb 8.3 L (13.0-17.5) gm/dL Hct 24.7 L (39.0-53.0) % Lymphocytes # 0.4 L (1.0-4.8) k/uL BUN 53 H (9-20) mg/dL Creatinine 3.46 H (0.66-1.25) mg/dL Glucose 126 H (74-99) mg/dL POC Glucose (mg/dL) 148 H (75-99) mg/dL Calcium 7.6 L (8.4-10.2) mg/dL C-Reactive Protein 17.2 H (<1.0) mg/dL Crossmatch 09/10/21 Range/Units 07:02 RBC (4.30-5.90) m/uL Hgb (13.0-17.5) gm/dL Hct (39.0-53.0) % Lymphocytes # (1.0-4.8) k/uL BUN (9-20) mg/dL Creatinine (0.66-1.25) mg/dL Glucose (74-99) mg/dL POC Glucose (mg/dL) 131 H (75-99) mg/dL Calcium (8.4-10.2) mg/dL C-Reactive Protein (<1.0) mg/dL Crossmatch
--- NOTE | 2021-09-10 10:05 | P.PCN ---
Description of Procedure: preoperative diagnoses is pulmonary embolism, bilateral DVT, history of fall orbital hematoma history of fall in the past large wound to the lower extremity Postero-same Procedure #1 is inferior venacavogram right jugular approach placement of a filter infrarenal the jugular approach using to the filter from [place] Procedure this patient has history of recurrent falls neck recently came with the fall with large abdominal hematoma. Patient has been diagnosed with the bilateral DVTs, and also pulmonary embolism patient was brought to the Heat Treat Inspector James of the neck and chest was prepped and draped applied usual standard manner. 1% lidocaine were infiltrated in the neck area. Ultrasound-guided micropuncture introduced to right jugular approach micropuncture guidewire was passed and 4-Czech dilator advanced. The guidewire. Then we passed a another guidewire and we placed 6-Czech sheath on the top of the guidewire with heparin saline and then we use a guidewire under fluoroscopy control which was parked at the inferior vena cava. Then we passed a she's on the top of the guidewire guidewire and catheter was removed. Through the sheath we introduced to the fracture which was applied below the renal vein. Then we did the completion venogram was in excellent position sheath was removed pressure was held patient are to the procedure well and transferred to the recovery room in satisfactory condition
--- NOTE | 2021-09-10 10:15 | P.PN ---
Subjective Progress Note Date: 09/10/21 Principal diagnosis: This is 71-year-old male seen in consultation because of acute kidney injury secondary to cardiorenal syndrome, chronic kidney disease stage IV, came in with hypoglycemia. He was started on dialysis on 09/06/2021 echocardiogram done on 08/28/2021 shows ejection fraction of 55%, pulmonary hypertension with right ventricle pressure of 50 mm As of this morning he is feeling comfortable, on nasal cannula oxygen. Denies any chest pain shortness of breath Nausea vomiting appetite is good she is able to walk. His urine output has gone down though. Is a permacath on the right side, he is to be discharged home soon, his dialysis unit and his the [facility] dialysis Objective - Vital Signs Vital signs: Vital Signs Temp 99 F 09/10/21 08:00 Pulse 69 09/10/21 08:00 Resp 16 09/10/21 08:00 BP 150/67 09/10/21 08:00 Pulse Ox 91 L 09/10/21 08:00 Intake & Output 09/09/21 09/10/21 09/10/21 18:59 06:59 18:59 Intake Total 664 50 Output Total 11 1 Balance 653 -1 50 Weight 84.7 kg Intake: IV 50 Oral 354 Blood Product 310 Rc As-1 Unit 310 [id number] Output: Chest Tube Drainage 10 Pleural Catheter Left 10 Urine 1 1 Other: Voiding Method Urinal Urinal # Voids 0 2 0 # Bowel Movements 4 Gen. awake alert oriented comfortable. HEENT exam no JVP neck is supple no facial asymmetry Lungs are clear to auscultation good air entry bilaterally Heart sounds current a fibrillation otherwise unremarkable for any murmur rub gallop Abdomen soft nontender. Extremity exam was mild edema Neurologically awake alert oriented - Labs CBC & Chem 7: 09/10/21 06:42 09/10/21 06:42 Labs: Abnormal Lab Results - Last 24 Hours (Table) 09/06/21 09/09/21 09/09/21 Range/Units 09:37 12:10 16:43 RBC (4.30-5.90) m/uL Hgb (13.0-17.5) gm/dL Hct (39.0-53.0) % Lymphocytes # (1.0-4.8) k/uL BUN (9-20) mg/dL Creatinine (0.66-1.25) mg/dL Glucose (74-99) mg/dL POC Glucose (mg/dL) 213 H 183 H (75-99) mg/dL Calcium (8.4-10.2) mg/dL C-Reactive Protein (<1.0) mg/dL Crossmatch See Detail 09/09/21 09/10/21 09/10/21 Range/Units 20:09 06:42 06:42 RBC 2.77 L (4.30-5.90) m/uL Hgb 8.3 L (13.0-17.5) gm/dL Hct 24.7 L (39.0-53.0) % Lymphocytes # 0.4 L (1.0-4.8) k/uL BUN 53 H (9-20) mg/dL Creatinine 3.46 H (0.66-1.25) mg/dL Glucose 126 H (74-99) mg/dL POC Glucose (mg/dL) 148 H (75-99) mg/dL Calcium 7.6 L (8.4-10.2) mg/dL C-Reactive Protein 17.2 H (<1.0) mg/dL Crossmatch 09/10/21 Range/Units 07:02 RBC (4.30-5.90) m/uL Hgb (13.0-17.5) gm/dL Hct (39.0-53.0) % Lymphocytes # (1.0-4.8) k/uL BUN (9-20) mg/dL Creatinine (0.66-1.25) mg/dL Glucose (74-99) mg/dL POC Glucose (mg/dL) 131 H (75-99) mg/dL Calcium (8.4-10.2) mg/dL C-Reactive Protein (<1.0) mg/dL Crossmatch Assessment and Plan Assessment: Impression 1. Hemodialysis dependent acute kidney injury from cardiorenal syndrome started on dialysis l on 09/06/2021. Additionally chronic kidney disease secondary to diabetic nephropathy with a baseline creatinine of 2.5 2. Mild to moderate edema 3. Congestive heart failure compensated 4. Anemia of chronic kidney disease hemoglobin 7.6 5. Iron saturation is 16.7 on 08/31/2021 6. History of coronary artery disease, atrial fibrillation 7. History of IVC placement on 09/08/2021 Recommendation 1. He can be discharged home and continue his dialysis at the [facility] unit 2. continue torsemide 80 mg, And bicarb
[2021-09-10 11:36] LABS: Glucose,Whole Blood 134 mg/dL (75-99)
--- NOTE | 2021-09-10 12:55 | P.PN ---
Subjective Progress Note Date: 09/10/21 Patient is status post IVC filter, as well as EGD and colonoscopy. He overall feels better, and was sitting up at the age of the right eating. He did not appear to be in any respiratory distress. Objective - Vital Signs Vital signs: Vital Signs Temp 99 F 09/10/21 08:00 Pulse 70 09/10/21 12:00 Resp 16 09/10/21 12:00 BP 140/65 09/10/21 12:00 Pulse Ox 93 L 09/10/21 12:00 Intake & Output 09/09/21 09/10/21 09/10/21 18:59 06:59 18:59 Intake Total 664 50 Output Total 11 1 Balance 653 -1 50 Weight 84.7 kg Intake: IV 50 Oral 354 Blood Product 310 Rc As-1 Unit 310 [id number] Output: Chest Tube Drainage 10 Pleural Catheter Left 10 Urine 1 1 Other: Voiding Method Urinal Urinal Urinal # Voids 0 2 0 # Bowel Movements 4 - Constitutional General appearance: Present: no acute distress - EENT Eyes: Present: EOMI ENT: Present: hearing grossly normal, normal oropharynx - Respiratory Respiratory: left: diminished - Cardiovascular Rhythm: regular Heart sounds: normal: S1, S2 - Gastrointestinal General gastrointestinal: Present: normal bowel sounds, soft - Integumentary Integumentary: Present: normal - Neurologic Neurologic: Present: CNII-XII intact - Musculoskeletal Musculoskeletal: Present: generalized weakness - Psychiatric Psychiatric: Present: A&O x's 3, appropriate affect - Labs CBC & Chem 7: 09/10/21 06:42 09/10/21 06:42 Labs: Abnormal Lab Results - Last 24 Hours (Table) 09/06/21 09/09/21 09/09/21 Range/Units 09:37 16:43 20:09 RBC (4.30-5.90) m/uL Hgb (13.0-17.5) gm/dL Hct (39.0-53.0) % Lymphocytes # (1.0-4.8) k/uL BUN (9-20) mg/dL Creatinine (0.66-1.25) mg/dL Glucose (74-99) mg/dL POC Glucose (mg/dL) 183 H 148 H (75-99) mg/dL Calcium (8.4-10.2) mg/dL C-Reactive Protein (<1.0) mg/dL Crossmatch See Detail 09/10/21 09/10/21 09/10/21 Range/Units 06:42 06:42 07:02 RBC 2.77 L (4.30-5.90) m/uL Hgb 8.3 L (13.0-17.5) gm/dL Hct 24.7 L (39.0-53.0) % Lymphocytes # 0.4 L (1.0-4.8) k/uL BUN 53 H (9-20) mg/dL Creatinine 3.46 H (0.66-1.25) mg/dL Glucose 126 H (74-99) mg/dL POC Glucose (mg/dL) 131 H (75-99) mg/dL Calcium 7.6 L (8.4-10.2) mg/dL C-Reactive Protein 17.2 H (<1.0) mg/dL Crossmatch 09/10/21 Range/Units 11:35 RBC (4.30-5.90) m/uL Hgb (13.0-17.5) gm/dL Hct (39.0-53.0) % Lymphocytes # (1.0-4.8) k/uL BUN (9-20) mg/dL Creatinine (0.66-1.25) mg/dL Glucose (74-99) mg/dL POC Glucose (mg/dL) 134 H (75-99) mg/dL Calcium (8.4-10.2) mg/dL C-Reactive Protein (<1.0) mg/dL Crossmatch Assessment and Plan (1) Anemia Narrative/Plan: Underlying chronic anemia due to chronic kidney disease, exacerbated by blood loss anemia. Patient has been receiving CATRINA regularly, but required multiple blood transfusions during this admission. EGD and colonoscopy were negative for GI source of blood loss. Therefore at this time it appears that the likely source for the acute component was the left pleura, exacerbated by anticoagulation. - Hemolytic is more stable. At the correlation has been discontinued. Continue CATRINA per nephrology. Continue to monitor and transfuse to keep hemoglobin greater than 7 Current Visit: Yes Status: Acute Priority: High Code(s): D64.9 - ANEMIA, UNSPECIFIED SNOMED Code(s): 613309087 (2) Pulmonary embolism Narrative/Plan: Patient had to be taken off anticoagulation as he had progressive anemia inpatient while on treatment. He therefore had an IVC filter placed. - He was advised that he can be reassessed to be rechallenged with anticoagulation in the future, if his hemoglobin remains stable and he has no recurrent bleeding in the chest tube. Would defer that to his primary oncologist at the [facility] Current Visit: Yes Status: Acute Priority: High Code(s): I26.99 - OTHER PULMONARY EMBOLISM WITHOUT ACUTE COR PULMONALE SNOMED Code(s): 77606274 (3) Metastatic melanoma Narrative/Plan: Resume follow-up at the [facility] postdischarge Current Visit: Yes Status: Chronic Priority: High Code(s): C79.9 - SECONDARY MALIGNANT NEOPLASM OF UNSPECIFIED SITE SNOMED Code(s): 767988609
[2021-09-10 16:39] LABS: Glucose,Whole Blood 238 mg/dL (75-99)
[2021-09-10 20:18] LABS: Glucose,Whole Blood 241 mg/dL (75-99)
[2021-09-10] MEDS: INSULIN DETEMIR (LEVEMIR) 100 UNIT/ML SYR SQ SCH (21:48)
--- NOTE | 2021-09-10 22:40 | PN ---
PROGRESS NOTE DATE OF SERVICE: 09/10/2021 REASON FOR FOLLOWUP: Fever and a question of pneumonia. INTERVAL HISTORY: The patient is afebrile. No fever has been recorded in the last 24 hours. The patient overall is feeling better, breathing comfortably. Denies having any chest pain, shortness of breath. Occasional cough. No abdominal pain or diarrhea. PHYSICAL EXAMINATION: Blood pressure 149/66, pulse of 68, temperature of 97.8. He is 90% on 3 L nasal cannula. General description is an elderly male lying in bed in no distress. Respiratory system: Unlabored breathing, decreased intensity of breath sounds. No wheeze. Heart S1, S2. Regular rate and rhythm. Abdomen soft, no tenderness. LABS: Hemoglobin is 8.1, white count 7.2, creatinine 3.46. Procalcitonin 0.35. DIAGNOSTIC IMPRESSION AND PLAN: Patient with a left-sided malignant effusion with a history of melanoma in this patient who did have a pleural catheter which was blocked; subsequently did have a chest tube, and the pleural fluid culture has been negative so far. The patient did have a low- grade fever yesterday; however, the patient's fever has resolved. Currently off antibiotic. Will monitor the patient closely off antibiotic, as clinical suspicion is low for an infectious etiology. Continue supportive care. MMODL / IJN: [id number] /
[2021-09-11 06:21] LABS: Basophils % (A) 0 %; Eosinophils # (A) 0.3 k/uL (0-0.7); Eosinophils % (A) 4 %; HCT 25.2 % (39.0-53.0); HGB 8.3 gm/dL (13.0-17.5); Hypochromasia Slight; Lymphocytes # (A) 0.3 k/uL (1.0-4.8); Lymphocytes % (A) 4 %; MCH 29.8 pg (25.0-35.0); MCHC 33.1 g/dL (31.0-37.0); MCV 89.9 fL (80.0-100.0); Mean Platelet Volume 7.2; Monocytes # (A) 0.5 k/uL (0-1.0); Monocytes % (A) 6 %; Neutrophils # (A) 6.6 k/uL (1.3-7.7); Neutrophils % (A) 83 %; Platelet Count 176 k/uL (150-450); Poikilocytosis Slight; RDW 15.5 % (11.5-15.5)
[2021-09-11 06:34] LABS: Glucose,Whole Blood 200 mg/dL (75-99)
[2021-09-11 06:39] LABS: Albumin 2.2 g/dL (3.5-5.0); Calcium 7.7 mg/dL (8.4-10.2); Total Bilirubin 0.4 mg/dL (0.2-1.3)
[2021-09-11] MEDS: CALCIUM ACETATE 667 MG TAB PO SCH ×2 (06:39→14:20)
[2021-09-11] MEDS: carvediloL 12.5 MG TAB PO SCH (06:39)
[2021-09-11] MEDS: INSULIN ASPART (NovoLOG) 100 UNIT/ML VIAL SQ SCH ×2 (06:39→14:18)
[2021-09-11] MEDS ORDERED: PANTOPRAZOLE 40 MG TABLET PO SCH (08:30)
[2021-09-11] MEDS: ASPIRIN 81 MG PO SCH (08:46)
[2021-09-11] MEDS: ATORVASTATIN 80 MG TAB PO SCH (08:46)
[2021-09-11] MEDS: amLODIPine 5 MG TAB PO SCH (08:46)
[2021-09-11] MEDS: SODIUM BICARBONATE TAB 650 MG TAB PO SCH (08:46)
[2021-09-11 08:51] VITALS: RESP 18; TEMP 98.9
--- NOTE | 2021-09-11 09:41 | P.DS ---
Providers Date of admission: 08/26/21 15:13 Expected date of discharge: 09/11/21 Attending physician: Darren Rubio MD Consults: 08/26/21 15:11 Consult Physician Routine Consulting Provider: Jayna Klein Consult Reason/Comments: Worsening renal function Do you want consulting provider notified?: Yes 08/29/21 16:35 Consult Physician Routine Consulting Provider: Sonido Adamson Consult Reason/Comments: hx malignant melanoma with mets lung/brain Do you want consulting provider notified?: Yes 09/01/21 10:51 Consult Physician Routine Consulting Provider: Michael Suarez Consult Reason/Comments: pneumonia Do you want consulting provider notified?: Yes 09/03/21 09:48 Consult Physician Routine Consulting Provider: Britt Macario Consult Reason/Comments: hypoxia, PE, mm w mets Do you want consulting provider notified?: Yes 09/03/21 11:56 Consult Physician Routine Consulting Provider: Xavier Augustine Consult Reason/Comments: Pleurx catheter occlusion Do you want consulting provider notified?: Yes 09/05/21 08:29 Consult Physician Routine Consulting Provider: Delta Brody Consult Reason/Comments: insertion of perma cath Do you want consulting provider notified?: Yes 09/06/21 09:06 Consult Physician Routine Consulting Provider: Charles Peck Consult Reason/Comments: Hemoglobin drop on AC. Needs endoscopic w/u Do you want consulting provider notified?: Yes 09/07/21 15:34 Consult Physician Routine Consulting Provider: Delta Brody Consult Reason/Comments: fernie filter placement Do you want consulting provider notified?: Already Contacted [facility] Course: History of present illness This is a 71-year-old gentleman patient of Dr. Wyatt Pereira. He has underlying history of diabetes mellitus type 2, CAD with prior CABG, CK D stage III, hypertension, history of melanoma was in remission until March when patient was noted to have metastatic melanoma with metastases to the lung with enlarged lymph nodes currently on immunotherapy. Patient had recent covid infection in September, with acute kidney injury secondary to covid infection September 2020 and follow Ernie since then. Patient was again admitted in November 09 for 2 days for acute diastolic congestive heart failure secondary to withdrawal off diuretics due to worsening kidney function. He was seen in the ER in March 20 for shortness of breath secondary to metastatic melanoma to his lungs with bilateral pleural effusions. Patient has been getting frequent thoracentesis and underwent pigtail catheter placement in the left chest in April. He was initially getting fluid removed up to 1 L every day but currently patient is getting fluid removed up to 550 mL once a week, last one 2 days ago. Patient flanagan s noticed poor appetite and increased shortness of breath for the past 1 week. He had his Covid booster 6 days ago following which he went to [facility] to have a brain MRI and CT. He received his immunotherapy 3 days ago. He has not recovered since then. His noticed poor appetite increased weakness associated with cough and shortness of breath. Patient was found to have low blood sugar in the low 30s which came back to normal. EKG demonstrated atrial fibrillation In the ER patient is noted to be hypoxic and was placed on 5 L of high flow still saturating at 89%. Otherwise patient is afebrile pulse 66 respiratory rate 18 blood pressure 127/58. He had a leukocytosis of 11, hemoglobin 9.9 platelet 225, BUN 109 creatinine 3.59. Sodium 139 potassium 3.4 chloride 110 [place]icarb 18 [place] [id number] Chest x-ray on 08/26 suggests cardiomegaly with small left pleural effusion R [id number] interstitial edema concerning for CHF exacerbation was noted. CT chest was obtained that showed bilateral pleural effusion with basilar pulmonary airspace infiltrates and atelectasis significantly increased compared to old exam with cardiomegaly and mediastinotomy edema but the similar to old exam. 08/28: Patient has been seen and followed by cardiology with recommendations to continue current medications. Echocardiogram has been obtained and report is pending. Patient is also followed by nephrology with recommendations to continue diuretics, discontinue Norvasc. Repeat chest x-ray reveals stable bibasilar right greater than left patchy and interstitial opacities with stable moderate cardiomegaly, trace left pleural effusion may be on the basis of multifocal pneumonia/atelectasis and/or heart failure. No pneumothorax. Patient has been afebrile, heart rate 62, blood pressure 126/66, pulse ox 94% on 6 L nasal cannula. Plan is to wean oxygen down. Repeat blood work reveals sodium 140, potassium 3.7, chloride 110, CO2 19, BUN 107, creatinine 3.86. Blood sugars are running mostly in the 300s this morning 133. Prandin 1 mg with meals added and Levemir increased to home dose of 35 units at bedtime. Patient has Albright catheter in place which we will have removed today and bladder scan postvoid. Home oxygen assessment to be done. 08/29: Patient is seen today on the cardiac stepdown unit. He is followed by nephrology with recommendations to maintain Albright catheter, avoid hypotension, nephro toxic agents and continue IV fluids at 50 ML's per hour. We have discontinued vancomycin. Patient has also been seen by cardiology. Patient is currently on Zosyn. VQ scan ordered to rule out pulmonary embolism due to ongoing hypoxia. Patient is requiring 6 L nasal cannula with pulse ox of 92%. He's been afebrile, heart rate 66, blood pressure 133/68. Repeat blood work rev eals sodium 138, potassium 4.2, chloride 109, CO2 19, BUN 103 and creatinine 4.04. Blood sugars are running between 167 and 249.. Ultrasound of the right lower extremity revealed DVT but could not be determined if this was acute and suggest chronic component. Chest x-ray reveals heart failure underlying pneumonia not excluded. 08/30: Patient is currently on IV heparin for pulmonary embolism.patient does have history of lower extremity DVT which he states he completed course of anticoagulation. Discussed case with oncology and we will plan for eliquis, prescription is been sent to his pharmacy. Pneumonia has been ruled out and antibiotics will be discontinued. Patient has Albright catheter in place which will be discontinued today if okay with nephrology and check postvoid residual. The blood work reveals WBC 8.5, hemoglobin 8.0. BUN 107, creatinine 4.2, CO2 19. Patient has been seen by PT and OT with recommendations for home. 08/31: Albright Catheter was discontinued this morning and bladder scan is ordered for 1 PM. Patient has increased breath sounds on left-sided chest x-ray ordered today. Renal function is slightly improved from yesterday with BUN of 99 and creatinine 3.99. Hemoglobin 7.6. TSH is 2.740. Patient will be started on eliquis and heparin discontinued. She has been afebrile, heart rate 70, blood pressure 141/76, pulse ox 92% on 4 L nasal cannula. The patient may require home oxygen therapy and we will assess closer to discharge. Renal ultrasound revealed no hydronephrosis or nephrolithiasis. There is increased echogenicity of the renal cortex which can be sutured with chronic medical renal disease. Chest x-ray reveals correlate for heart failure otherwise diffuse pneumonia. Findings stable. 09/01: Patient has been afebrile, heart rate 69, blood pressure 167/79, pulse ox 91%. He is now on 7 L nasal cannula. Ultrasound of the chest will be done to evaluate pleural effusions. Patient was transitioned from heparin drip to eliquis yesterday and oncology wants him on eliquis for life. Patient continues to have lower extremity edema. Repeat blood work reveals BUN of 101, creatinine 3.88, CO2 of 20. Blood sugars are running between 130 and 182. We will ask for Dr. Suarez to evaluate for pneumonia. And patient started on Zosyn. Patient does have pleural cath in place which nurse tried to drain today but no output. 09/02: Hemoglobin this morning is 6.7 and patient will be transfused 1 unit of packed RBCs. Repeat blood work for tomorrow.Blood glucose ran between 100 and 180. One dose of IV Lasix ordered by nephrology. 09/03: Patient states that he has been sleeping in his chair because it is easier to breathe. He did require nonrebreather for a few hours during the night. We will order 1 dose of IV Lasix today 40 mg. He has been afebrile, heart rate 72, blood pressure 150/75 and pulse ox 93% on 9 L nasal cannula. Blood sugars have been running mostly between 9785 but only 68 this morning. Hemoglobin today is 7.6 after 1 unit of packed RBC dose infused yesterday. BUN 99 and creatinine 3.71. CO2 19. Patient is on sodium bicarb oral. He is followed closely by nephrology. Consult added for pulmonary medicine. 09/04: Cardiothoracic surgery drained half liter from Pleurx catheter on the left side and recommendations are for drainage on the right side. Interventional radiology added to perform this. At this time, plan is for Dr. Dee to do a right-sided thoracentesis on Saturday. We have transitioned patient off eliquis and onto heparin drip and this will need to be held 4 hours prior to procedure on Saturday. Patient has been afebrile, heart rate 70, blood pressure 148/67, pulse ox 91% on 8 L nasal cannula. Repeat blood work reveals WBC 9.3, hemoglobin 7.4. INR is 1.3. BUN 100 and creatinine 4.04. Blood sugars are running between 89 and 209. Pleural fluid is showing diphtheroid species. 09/05 patient examined bedside. He appears much pale than yesterday. Patient nurse called to him in the morning suggesting of left chest pain. Chest x-ray was obtained that suggested progression of pleural effusion. Patient had 1 L of serosanguineous drainage from the left pleural cavity this morning. Thoracentesis of the right 1750 ml were removed on 09/[address] Reinoso. Labs reviewed suggestive WBC of 19.9 hemoglobin 6.1 hematocrit 18.2 platelet 229 sodium 139 potassium 5.4 BUN 101 creatinine 4.26. Vitals reviewed suggestive of 97.9 pulse 63 respiratory rate 16 blood pressure 102/47 on 6 L high flow. Patient received 2 units of PRBC for low hemoglobin. Repeat hemoglobin in the evening. Due to progression of renal dysfunction plan for renal replacement therapy tomorrow with placement of permacath with vascular surgery. Prandin discontinued Levemir reduced to 10 units as patient's continues to have hypoglycemia 09/06: Patient was scheduled for catheter placement today with vascular surgery for hemodialysis but this was canceled due to hemoglobin of 6.1. He is scheduled for 2 units of packed RBCs. 1 L of sanguinous fluid was removed from the left pleura catheter. Patient is denying having any chest pain. He is currently on 6 L nasal cannula with pulse ox 97%, afebrile, heart rate 70s, blood pressure 99/37. Other lab work today reveals WBC 16.8. BUN 111, creatinine 5.12. Blood sugars are in the 100 and teens. 09/07: Patient now has pleural catheter to dependent drainage with sanguineous drainage. Patient had dialysis catheter placed yesterday to the right subclavian by Dr. Brody and patient had first dialysis treatment 09/06. He is scheduled for repeat dialysis today. Patient states his breathing is okay. He is down to 3 L nasal cannula. Regarding discharge planning, patient states that he is planning to go home and lives at home with his . Contacted Dr. Brody regarding placing a Fernie filter which will be scheduled for tomorrow. 09/08: Patient underwent [place] filter placement today with Dr. Brody. He has had no postop complications. Patient has left sided Pleurx catheter to dependent drainage and is having more serous versus sanguinous drainage. Hemoglobin today is 7.1 and patient will be transfused 1 unit of packed RBCs. Patient is scheduled for repeat hemodialysis today. Chest x-ray continues to show interstitial edema and small effusions. He has been afebrile, heart rate 70, blood pressure 139/63, pulse ox 91% on 4 L nasal cannula. Eliquis discontinued. 09/09: Patient is status post a Fernie filter yesterday with Dr. Brody. He has no postop, patient at this time. His left-sided Pleurx catheter is dependent to drainage with serous drainage. It is recommended to be drained every other day. Hemoglobin 7.6 today. He did not receive his 1 unit of packed red blood cells yesterday. We will plan to infuse today. Hemodialysis was performed yesterday. Temperature 100.6, respirations 16, pulse rate 67, blood pressure 133/56 pulse ox 93% on 3 L. 09/10: Patient is status post EGD colonoscopy. Findings no contraindication to anticoagulation based on endoscopic evaluation. Continue antacid therapy post discharge. he may resume diet. Left-sided Pleurx catheters dependent drainage is serous drainage. Recommendation for drainage on Saturday. Hemoglobin 8.3 today after 1 unit packed red blood cell infusion. Patient did have an elevated temperature of 100.6 yesterday while transfusion was in process. Patient has had a febrile today. Heart rate 69, respirations 18, blood pressure 136/73 pulse ox 93% on 2 L nasal cannula. 09/11: Patient is currently undergoing hemodialysis today with plan for removal of 2 L of fluid. He is set up for outpatient dialysis center on Saturday to start tomorrow. 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 He has been afebrile, heart rate in the 60s, blood pressure 132/60. Repeat blood work reveals WBC 8, hemoglobin 8.3, platelet count 176. Sodium 136, potassium 4.0, chloride 99, CO2 30, BUN 56 and creatinine 3.5. Blood sugars are running 156-241. Patient will be discharged home today once arrangements are completed. DISCHARGE DIAGNOSES 1. Acute diastolic heart failure, ejection fraction 55-60% with severe concentric left ventricle hypertrophy and moderate to severe pulmonary hypertension moderate tricuspid regurgitation on October 2020. 2. Acute hypoxic respiratory failure secondary to CHF exacerbation and bilateral pleural effusions, pulmonary embolism, pneumonia possible. 3. Acute kidney injury secondary to ATN with cardiorenal syndrome on chronic kidney disease stage IV secondary to diabetic kidney disease with baseline creatinine 2.5. 4. New onset paroxysmal atrial fibrillation. 5. Metastatic melanoma with metastasis to the lung and lymph nodes enlargement. 6. Recurrent pleural effusion With pleural cath involving the left pleural cavity. 7. Hypoglycemia with history Diabetes mellitus type 2, hypoglycemia resolved. A1c 8.8. 8. Anemia of kidney disease with acute blood loss anemia secondary to pleural effusion. 9. CAD with prior CABG in the past, status post occlusive disease in the LAD, and diagonal branch. 10. Covid infection 19 on 10/18, Received Covid booster 1 week 11. Uncontrolled hypertension. 12. Hyperlipidemia. 13. History of GI bleed. 14. Mild duodenitis, mild gastritis, small hiatal hernia, mild diverticulosis on EGD/colonoscopy. 15. Chronic hypoxic respiratory failure requiring home oxygen therapy secondary to acute on chronic diastolic heart failure DISCHARGE PLAN Home Greater than 35 minutes was utilized and coordinating patient's discharge. Impression and plan of care have been directed as dictated by the signing physician. Melania Pope nurse practitioner acting as scribe for signing physician. Patient Condition at Discharge: Good Plan - Discharge Summary Discharge Rx Participant: No New Discharge Prescriptions: New hydrALAZINE HCL [Apresoline] 50 mg PO TID #90 tab amLODIPine [Norvasc] 5 mg PO DAILY #30 tab Pantoprazole [Protonix] 40 mg PO AC-BRKFST #30 tab Torsemide [Demadex] 80 mg PO DAILY #120 tab Calcium Acetate [PhosLo] 667 mg PO TID-W/MEALS #90 tab Sodium Bicarbonate Tab 650 mg PO BID #60 tab Continue Atorvastatin [Lipitor] 80 mg PO DAILY Aspirin EC [Ecotrin Low Dose] 81 mg PO DAILY carvediloL [Coreg*] 12.5 mg PO BID calcitrioL [Calcitriol] 0.25 mcg PO HERBERT Ergocalciferol [Vitamin D2 (1250 Mcg = 94416 Iu)] 1,250 mcg PO HERBERT Changed Insulin Detemir [Levemir Flextouch Pen] 20 units SQ HS #0 Discontinued hydrALAZINE HCL [Apresoline] 25 mg PO BID amLODIPine [Norvasc] 10 mg PO DAILY Furosemide [Lasix] 40 mg PO Q48H Discharge Medication List Atorvastatin [Lipitor] 80 mg PO DAILY 04/30/17 [History] Aspirin EC [Ecotrin Low Dose] 81 mg PO DAILY 10/18/20 [History] Ergocalciferol [Vitamin D2 (1250 Mcg = 32504 Iu)] 1,250 mcg PO HERBERT 03/16/21 [History] calcitrioL [Calcitriol] 0.25 mcg PO HERBERT 08/26/21 [History] carvediloL [Coreg*] 12.5 mg PO BID 08/26/21 [History] Calcium Acetate [PhosLo] 667 mg PO TID-W/MEALS #90 tab 09/11/21 [Rx] Insulin Detemir [Levemir Flextouch Pen] 20 units SQ HS #0 09/11/21 [Rx] Pantoprazole [Protonix] 40 mg PO AC-BRKFST #30 tab 09/11/21 [Rx] Sodium Bicarbonate Tab 650 mg PO BID #60 tab 09/11/21 [Rx] Torsemide [Demadex] 80 mg PO DAILY #120 tab 09/11/21 [Rx] amLODIPine [Norvasc] 5 mg PO DAILY #30 tab 09/11/21 [Rx] hydrALAZINE HCL [Apresoline] 50 mg PO TID #90 tab 09/11/21 [Rx] Follow up Appointment(s)/Referral(s): [facility] [NON-STAFF] - As Needed (Supplier of home oxygen) [facility], [NON-STAFF] - 1-2 Days Tremaine Pereira MD [Primary Care Provider] - 1-2 days Activity/Diet/Wound Care/Special Instructions: Hemodialysis - [facility] ([phone]) - Saturday, , Saturday at 11:15 a.m. - first appointment time is Saturday09/12/21 - please arrive at 10:30 a.m. Discharge Disposition: HOME WITH HOME HEALTH SERVICES
--- NOTE | 2021-09-11 10:52 | P.PN ---
<Vinita Pierce - Last Filed: 09/11/21 10:45> Subjective Progress Note Date: 09/11/21 CHIEF COMPLAINT: Hypoglycemia and altered mental status HISTORY OF PRESENT ILLNESS: Surgical service is following in regards to patien t's anemia. Patient is status post EGD and colonoscopy which demonstrated mild duodenitis, mild gastritis, small hiatal hernia, mild diverticulosis and previous colonic tattoo area noted. Patient denies any abdominal pain. Denies any black stools. Hemoglobin stable at 8.3. He is currently getting hemodialysis. Patient is back to the Pleurx catheter and chest tube continued removed. PHYSICAL EXAM: VITAL SIGNS: Reviewed. GENERAL: Well-developed in no acute distress. HEENT: No sclera icterus. Extraocular movements grossly intact. Moist buccal mucosa. Head is atraumatic, normocephalic. ABDOMEN: Soft. Nondistended. Nontender. NEUROLOGIC: Alert and oriented. Cranial nerves II through XII grossly intact. ASSESSMENT: 1. Anemia status post EGD and colonoscopy which demonstrated mild duodenitis, mild gastritis, small hiatal hernia, mild diverticulosis 2. Metastatic melanoma with metastases to the lung 3. Right pleural effusion requiring thoracentesis 4. Left pleural effusion with Pleurx catheter 5. Acute kidney injury starting hemodialysis 6. History of DVT and PE 7. Paroxysmal atrial fibrillation PLAN: -Continue PPI -Continue supportive care Physician Sign Painter Apprentice note has been reviewed by physician. Signing provider agrees with the documented findings, assessment, and plan of care. Objective - Vital Signs Vital signs: Vital Signs Temp 98.9 F 09/11/21 08:49 Pulse 65 09/11/21 08:49 Resp 18 09/11/21 08:49 BP 146/65 09/11/21 08:49 Pulse Ox 96 09/11/21 08:49 Intake & Output 09/10/21 09/11/21 09/11/21 18:59 06:59 18:59 Intake Total 165 Balance 165 Weight 83.6 kg Intake: IV 50 Oral 115 Other: Voiding Method Urinal Urinal Urinal # Voids 0 - Labs CBC & Chem 7: 09/11/21 05:46 09/11/21 05:46 Labs: Abnormal Lab Results - Last 24 Hours (Table) 09/10/21 09/10/21 09/10/21 Range/Units 06:42 11:35 16:37 RBC (4.30-5.90) m/uL Hgb (13.0-17.5) gm/dL Hct (39.0-53.0) % Lymphocytes # (1.0-4.8) k/uL Sodium (137-145) mmol/L BUN (9-20) mg/dL Creatinine (0.66-1.25) mg/dL Glucose (74-99) mg/dL POC Glucose (mg/dL) 134 H 238 H (75-99) mg/dL Calcium (8.4-10.2) mg/dL Total Protein (6.3-8.2) g/dL Albumin (3.5-5.0) g/dL Procalcitonin 0.35 H (0.02-0.09) ng/mL 09/10/21 09/11/21 09/11/21 Range/Units 19:40 05:46 05:46 RBC 2.80 L (4.30-5.90) m/uL Hgb 8.3 L (13.0-17.5) gm/dL Hct 25.2 L (39.0-53.0) % Lymphocytes # 0.3 L (1.0-4.8) k/uL Sodium 136 L (137-145) mmol/L BUN 56 H (9-20) mg/dL Creatinine 3.51 H (0.66-1.25) mg/dL Glucose 184 H (74-99) mg/dL POC Glucose (mg/dL) 241 H (75-99) mg/dL Calcium 7.7 L (8.4-10.2) mg/dL Total Protein 5.0 L (6.3-8.2) g/dL Albumin 2.2 L (3.5-5.0) g/dL Procalcitonin (0.02-0.09) ng/mL 09/11/21 Range/Units 06:19 RBC (4.30-5.90) m/uL Hgb (13.0-17.5) gm/dL Hct (39.0-53.0) % Lymphocytes # (1.0-4.8) k/uL Sodium (137-145) mmol/L BUN (9-20) mg/dL Creatinine (0.66-1.25) mg/dL Glucose (74-99) mg/dL POC Glucose (mg/dL) 200 H (75-99) mg/dL Calcium (8.4-10.2) mg/dL Total Protein (6.3-8.2) g/dL Albumin (3.5-5.0) g/dL Procalcitonin (0.02-0.09) ng/mL Microbiology - Last 24 Hours (Table) 09/10/21 06:42 Blood Culture - Preliminary Blood No Growth after 24 hours <Charles Peck - Last Filed: 09/11/21 17:07> Subjective As above. Patient doing well today. Denies bleeding. We'll sign off. Please call if needed. Objective - Vital Signs Vital signs: Vital Signs Temp 98.9 F 09/11/21 08:49 Pulse 60 09/11/21 14:11 Resp 18 09/11/21 14:11 BP 132/60 09/11/21 14:11 Pulse Ox 97 09/11/21 12:00 Intake & Output 09/10/21 09/11/21 09/11/21 18:59 06:59 18:59 Intake Total 165 236 Output Total 2300 Balance 165 -2064 Weight 83.6 kg 83.6 kg Intake: IV 50 Oral 115 236 Output: Chest Tube Drainage 300 Pleural Catheter Left 300 Hemodialysis 2000 Other: Voiding Method Urinal Urinal Urinal # Voids 0 - Labs CBC & Chem 7: 09/11/21 05:46 09/11/21 05:46 Labs: Abnormal Lab Results - Last 24 Hours (Table) 09/10/21 09/11/21 09/11/21 Range/Units 19:40 05:46 05:46 RBC 2.80 L (4.30-5.90) m/uL Hgb 8.3 L (13.0-17.5) gm/dL Hct 25.2 L (39.0-53.0) % Lymphocytes # 0.3 L (1.0-4.8) k/uL Sodium 136 L (137-145) mmol/L BUN 56 H (9-20) mg/dL Creatinine 3.51 H (0.66-1.25) mg/dL Glucose 184 H (74-99) mg/dL POC Glucose (mg/dL) 241 H (75-99) mg/dL Calcium 7.7 L (8.4-10.2) mg/dL Total Protein 5.0 L (6.3-8.2) g/dL Albumin 2.2 L (3.5-5.0) g/dL 09/11/21 09/11/21 Range/Units 06:19 11:54 RBC (4.30-5.90) m/uL Hgb (13.0-17.5) gm/dL Hct (39.0-53.0) % Lymphocytes # (1.0-4.8) k/uL Sodium (137-145) mmol/L BUN (9-20) mg/dL Creatinine (0.66-1.25) mg/dL Glucose (74-99) mg/dL POC Glucose (mg/dL) 200 H 156 H (75-99) mg/dL Calcium (8.4-10.2) mg/dL Total Protein (6.3-8.2) g/dL Albumin (3.5-5.0) g/dL Microbiology - Last 24 Hours (Table) 09/10/21 06:42 Blood Culture - Preliminary Blood No Growth after 24 hours Assessment and Plan (1) Anemia Status: Acute Priority: High Code(s): D64.9 - ANEMIA, UNSPECIFIED SNOMED Code(s): 886624661
[2021-09-11 11:35] VITALS: BMI 26.4
[2021-09-11 11:56] LABS: Glucose,Whole Blood 156 mg/dL (75-99)
--- NOTE | 2021-09-11 12:32 | PN ---
PROGRESS NOTE The patient is seen for followup for acute kidney injury on top of chronic kidney disease. The patient is currently seen on dialysis. He is tolerating his treatment well. PHYSICAL EXAMINATION: Blood pressure 146/65, heart rate 65 per minute. He is afebrile. Examination of the heart S1, S2. Examination of the lungs decreased breath sounds at the bases. Abdomen is soft, nontender. Examination of lower extremities shows much decreased edema. WEDDING MAKEUP ARTIST exam grossly intact. LAB: Show sodium 136, potassium 4.0, chloride 99, BUN 56, creatinine 3.5, hemoglobin 8.3 g/dL. ASSESSMENT: 1. Acute kidney injury, cardiorenal, started on dialysis, currently doing much better in terms of volume status. 2. Congestive heart failure acute on top of chronic, mostly diastolic with moderate mitral regurgitation and pulmonary hypertension. 3. Volume overload currently improving. 4. Malignant melanoma with metastasis. 5. Chronic kidney disease secondary to diabetic kidney disease, stage IV. Baseline creatinine about 2.5. PLAN: Continue to maintain dialysis on a Saturday, Saturday, Saturday schedule. We will follow up as outpatient for recovery of renal function. MMODL / IJN: [id number] /
[2021-09-11] MEDS: hydrALAZINE HCL 50 MG TAB PO SCH (14:11)
[2021-09-11 14:12] VITALS: BP 132/60; PULSE 60
[2021-09-11] MEDS: TORSEMIDE 20 MG TAB PO SCH (14:20)
--- NOTE | 2021-09-11 16:44 | PCN ---
PROCEDURE NOTE PREOPERATIVE DIAGNOSIS: Metastatic melanoma with bloody pleural effusion with significant drop in hemoglobin with bilateral lower extremity DVT. POSTOPERATIVE DIAGNOSIS: Metastatic melanoma with bloody pleural effusion with significant drop in hemoglobin with bilateral lower extremity DVT. PROCEDURE PERFORMED: Inferior vena cavogram and placement of infrarenal filter right femoral approach. DESCRIPTION OF PROCEDURE: The patient was brought to the labor relations teacher. Right groin was prepped and drapes applied in a sterile manner. 1% lidocaine was infiltrated into the groin. Ultrasound guided micropuncture introduced right femoral vein and 4-Guatemalan dilator advanced on the top of the guidewire. Then we passed a regular guidewire which was parked above the renal vein and then a 6-Guatemalan sheath was advanced on top of the guidewire. Through the sheath, we introduced the pigtail and vena cavogram was performed. Renal vein was visualized. After that, the pigtail was removed and we placed a longer sheath on the top of the guidewire and we placed a filter through the sheath which was deployed below the renal vein and vena cava was performed. It was in excellent position. The catheter was removed. Pressure was held. Patient tolerated the procedure well. MMODL / IJN: [id number] /
--- NOTE | 2021-09-11 19:07 | P.PN ---
Subjective Progress Note Date: 09/11/21 Principal diagnosis: SOB, low blood glucose. Drop in Hgb, DVT In follow-up today large chest tube drain removed per pt, he is on dialysis when seen. He denies any other bleeding. Objective - Vital Signs Vital signs: Vital Signs Temp 98.9 F 09/11/21 08:49 Pulse 60 09/11/21 14:11 Resp 18 09/11/21 14:11 BP 132/60 09/11/21 14:11 Pulse Ox 97 09/11/21 12:00 Intake & Output 09/11/21 09/11/21 09/12/21 06:59 18:59 06:59 Intake Total 236 Output Total 2300 Balance -2063 Weight 83.6 kg 83.6 kg Intake: Oral 236 Output: Chest Tube Drainage 300 Pleural Catheter Left 300 Hemodialysis 2000 Other: Voiding Method Urinal Urinal - Constitutional General appearance: Present: cooperative, no acute distress, thin - EENT Eyes: Present: anicteric sclerae, EOMI ENT: Present: hearing grossly normal - Respiratory Details: resp even and unlabored - Cardiovascular Heart sounds: normal: S1, S2 Abnormal Heart Sounds: Absent: systolic murmur, diastolic murmur, rub, S3 Gallop, S4 Gallop, click, other - Peripheral edema leg Peripheral Edema: bilateral: 1+, Pitting - Gastrointestinal General gastrointestinal: Present: normal bowel sounds, soft - Neurologic Neurologic: Present: CNII-XII intact - Musculoskeletal Musculoskeletal: Present: generalized weakness - Psychiatric Psychiatric: Present: A&O x's 3, appropriate affect, intact judgment & insight - Labs CBC & Chem 7: 09/11/21 05:46 09/11/21 05:46 Labs: Abnormal Lab Results - Last 24 Hours (Table) 09/10/21 09/11/21 09/11/21 Range/Units 19:40 05:46 05:46 RBC 2.80 L (4.30-5.90) m/uL Hgb 8.3 L (13.0-17.5) gm/dL Hct 25.2 L (39.0-53.0) % Lymphocytes # 0.3 L (1.0-4.8) k/uL Sodium 136 L (137-145) mmol/L BUN 56 H (9-20) mg/dL Creatinine 3.51 H (0.66-1.25) mg/dL Glucose 184 H (74-99) mg/dL POC Glucose (mg/dL) 241 H (75-99) mg/dL Calcium 7.7 L (8.4-10.2) mg/dL Total Protein 5.0 L (6.3-8.2) g/dL Albumin 2.2 L (3.5-5.0) g/dL 09/11/21 09/11/21 Range/Units 06:19 11:54 RBC (4.30-5.90) m/uL Hgb (13.0-17.5) gm/dL Hct (39.0-53.0) % Lymphocytes # (1.0-4.8) k/uL Sodium (137-145) mmol/L BUN (9-20) mg/dL Creatinine (0.66-1.25) mg/dL Glucose (74-99) mg/dL POC Glucose (mg/dL) 200 H 156 H (75-99) mg/dL Calcium (8.4-10.2) mg/dL Total Protein (6.3-8.2) g/dL Albumin (3.5-5.0) g/dL Microbiology - Last 24 Hours (Table) 09/10/21 06:42 Blood Culture - Preliminary Blood No Growth after 24 hours Assessment and Plan (1) Anemia Narrative/Plan: Multifactorial. CKD, being seen by Nephrology, dialysis, on epo supplementation Patient is status post 4 units of packed red blood cells. Hemoglobin is stable today. EGD/colonoscopy no evidence of acute bleeding. Patient had persistent serosanguineous drainage from chest tube, the larger tube was discontinue. Anticoagulation for DVT and PE has been held secondary to acute bleeding. IVC filter placed. Attending Oncologist will make further decisions regarding anticoagulation when they see pt Last PRBC transfusion was on 09/09. Hgb stable today Status: Acute Priority: High Code(s): D64.9 - ANEMIA, UNSPECIFIED SNOMED Code(s): 293348617 (2) DVT (deep venous thrombosis) Status: Acute Priority: High Code(s): I82.409 - ACUTE EMBOLISM AND THOMBOS UNSP DEEP VN UNSP LOWER EXTREMITY SNOMED Code(s): 113648457 (3) Pulmonary embolism Status: Acute Priority: High Code(s): I26.99 - OTHER PULMONARY EMBOLISM WITHOUT ACUTE COR PULMONALE SNOMED Code(s): 99313903 (4) Metastatic melanoma Narrative/Plan: Patient will return to his treating Oncologist upon discharge Status: Chronic Priority: High Code(s): C79.9 - SECONDARY MALIGNANT NEOPLASM OF UNSPECIFIED SITE SNOMED Code(s): 681873074
== END 2021-09-11 16:57 | disposition home health service (06) | DRG 291 ==
LOC: EC 10:52 → 3SCARD 15:13
PROVIDERS: ADMIT Internal Medicine; ATTEND Internal Medicine
PROC: 5A0955A Assistance with Respiratory Ventilation, Greater than 96 Consecutive Hours, High Flow/Velocity Cannula (ICD-10-PCS; 2021-08-27)
PROC: 30233N1 Transfusion of Nonautologous Red Blood Cells into Peripheral Vein, Percutaneous Approach (ICD-10-PCS; 2021-09-02)
PROC: 0W993ZX Drainage of Right Pleural Cavity, Percutaneous Approach, Diagnostic (ICD-10-PCS; 2021-09-04)
PROC: 3E0L3GC Introduction of Other Therapeutic Substance into Pleural Cavity, Percutaneous Approach (ICD-10-PCS; 2021-09-04)
PROC: 0JH63XZ Insertion of Tunneled Vascular Access Device into Chest Subcutaneous Tissue and Fascia, Percutaneous Approach (ICD-10-PCS; 2021-09-06)
PROC: 06H033Z Insertion of Infusion Device into Inferior Vena Cava, Percutaneous Approach (ICD-10-PCS; 2021-09-06)
PROC: 5A1D70Z Performance of Urinary Filtration, Intermittent, Less than 6 Hours Per Day (ICD-10-PCS; 2021-09-06)
PROC: 06H03DZ Insertion of Intraluminal Device into Inferior Vena Cava, Percutaneous Approach (ICD-10-PCS; principal; 2021-09-08 11:50)
PROC: 0DJD8ZZ Inspection of Lower Intestinal Tract, Via Natural or Artificial Opening Endoscopic (ICD-10-PCS; 2021-09-10)
PROC: 0DJ08ZZ Inspection of Upper Intestinal Tract, Via Natural or Artificial Opening Endoscopic (ICD-10-PCS; 2021-09-10)
DX: I13.0 Hypertensive heart and chronic kidney disease with heart failure and stage 1 through stage 4 chronic kidney disease, or unspecified chronic kidney disease (principal); I50.33 Acute on chronic diastolic (congestive) heart failure; N17.0 Acute kidney failure with tubular necrosis; J96.21 Acute and chronic respiratory failure with hypoxia; I26.09 Other pulmonary embolism with acute cor pulmonale; J15.6 Pneumonia due to other Gram-negative bacteria; C78.2 Secondary malignant neoplasm of pleura; C77.1 Secondary and unspecified malignant neoplasm of intrathoracic lymph nodes; I82.413 Acute embolism and thrombosis of femoral vein, bilateral; I82.433 Acute embolism and thrombosis of popliteal vein, bilateral; E87.2 Acidosis; J91.8 Pleural effusion in other conditions classified elsewhere; D62 Acute posthemorrhagic anemia; N18.4 Chronic kidney disease, stage 4 (severe); C78.7 Secondary malignant neoplasm of liver and intrahepatic bile duct; C79.31 Secondary malignant neoplasm of brain; J98.11 Atelectasis; R04.2 Hemoptysis; E83.9 Disorder of mineral metabolism, unspecified; E11.649 Type 2 diabetes mellitus with hypoglycemia without coma; C43.9 Malignant melanoma of skin, unspecified; I27.20 Pulmonary hypertension, unspecified; E11.22 Type 2 diabetes mellitus with diabetic chronic kidney disease; I48.0 Paroxysmal atrial fibrillation; Z79.4 Long term (current) use of insulin; Z99.2 Dependence on renal dialysis; Z20.822 Contact with and (suspected) exposure to COVID-19; D63.1 Anemia in chronic kidney disease; T68.XXXA Hypothermia, initial encounter; R54 Age-related physical debility; I08.1 Rheumatic disorders of both mitral and tricuspid valves; I25.10 Atherosclerotic heart disease of native coronary artery without angina pectoris; E87.6 Hypokalemia; E78.5 Hyperlipidemia, unspecified; E87.5 Hyperkalemia; K29.80 Duodenitis without bleeding; K29.70 Gastritis, unspecified, without bleeding; K57.90 Diverticulosis of intestine, part unspecified, without perforation or abscess without bleeding; K64.8 Other hemorrhoids; K44.9 Diaphragmatic hernia without obstruction or gangrene; K21.9 Gastro-esophageal reflux disease without esophagitis; M19.90 Unspecified osteoarthritis, unspecified site; R04.0 Epistaxis; I25.2 Old myocardial infarction; H40.9 Unspecified glaucoma; S00.512A Abrasion of oral cavity, initial encounter; Z79.82 Long term (current) use of aspirin; Z79.899 Other long term (current) drug therapy; Z90.89 Acquired absence of other organs; Z95.5 Presence of coronary angioplasty implant and graft; Z90.49 Acquired absence of other specified parts of digestive tract; Z87.19 Personal history of other diseases of the digestive system; Z87.39 Personal history of other diseases of the musculoskeletal system and connective tissue; Z86.16 Personal history of COVID-19; Z86.711 Personal history of pulmonary embolism; Z86.718 Personal history of other venous thrombosis and embolism; Z87.01 Personal history of pneumonia (recurrent); Z95.1 Presence of aortocoronary bypass graft; Z98.42 Cataract extraction status, left eye; Z98.890 Other specified postprocedural states; Z71.3 Dietary counseling and surveillance; Z81.2 Family history of tobacco abuse and dependence
CPT/HCPCS: 36415; 36558; 37191; 43235; 45378; 70450; 71045; 71046; 71250; 76604; 76770; 76937; 78582; 80048; 80053; 80076; 80202; 81001; 82668; 82728; 82945; 83010; 83036; 83540; 83550; 83605; 83615; 83735; 83880; 84100; 84132; 84145; 84157; 84443; 85025; 85027; 85045; 85379; 85384; 85610; 85730; 86140; 86704; 86706; 86850; 86900; 86901; 86920; 87040; 87070; 87075; 87102; 87116; 87205; 87206; 87252; 87340; 87496; 87498; 87502; 87529; 87634; 87635; 87798; 88108; 88305; 88341; 88342; 89050; 90935; 93005; 93306; 93970; 94760; 96365; 96366; 96367; 96375; 99285

== ENCOUNTER 2022-03-02 09:16 | Day surgery (SDC) | payer OTHER ==
[2022-03-02 09:41] LABS: Glucose,Whole Blood 148 mg/dL (75-99)
[2022-03-02 09:45] VITALS: RESP 16; TEMP 98
[2022-03-02] MEDS ORDERED: SODIUM CHLORIDE 0.9% 500 ML 500 ML IV ONE (09:45)
[2022-03-02 09:47] LABS: HCT 33.4 % (39.0-53.0); HGB 11.7 gm/dL (13.0-17.5); MCH 30.1 pg (25.0-35.0); MCHC 34.9 g/dL (31.0-37.0); MCV 86.2 fL (80.0-100.0); Mean Platelet Volume 7.1; Platelet Count 199 k/uL (150-450); RBC 3.88 m/uL (4.30-5.90); RDW 15.9 % (11.5-15.5); WBC 8.2 k/uL (3.8-10.6)
[2022-03-02] MEDS ORDERED: fentaNYL (PF) 50 MCG/ML 2 ML AMP ONE ×2 (09:48→10:59)
[2022-03-02] MEDS ORDERED: MIDAZOLAM 2 MG/2 ML VIAL IVP ONE (10:11)
[2022-03-02 10:21] LABS: Calcium 8.9 mg/dL (8.4-10.2); Potassium 3.9 mmol/L (3.5-5.1)
--- NOTE | 2022-03-02 10:36 | P.ANPRN ---
Procedure Note - Anesthesia - Nerve Block Performed Left Supraclavicular Single Time Out Performed: Yes Date of Procedure: 03/02/22 Procedure Start Time: 10:10 Procedure Stop Time: 10:14 Location of Patient: PreOp Indication: Acute Post-Operative Pain, Requested by Surgeon Sedation Type: Sedate with meaningful contact maintained Preparation: Sterile Prep Position: Supine Needle Types: Pajunk Needle Gauge: 21 Ultrasound used to visualize needle placement: Yes Ultrasound used to observe medication spread: Yes Blood Aspirated: No Pain Paresthesia on Injection Noted: No Resistance on Injection: Normal Image Stored and Saved: Yes Events: Uneventful and Well Tolerated (Ropivacaine 0.5% 20 mL)
[2022-03-02] MEDS ORDERED: ROPIVACAINE 5 MG/ML 30 ML VIAL ONE (10:59)
[2022-03-02] MEDS ORDERED: MIDAZOLAM 2 MG/2 ML VIAL ONE (10:59)
[2022-03-02] MEDS ORDERED: HEPARIN SODIUM 1,000 UN/ML (10ML VL) ONE (11:05)
[2022-03-02] MEDS ORDERED: VERAPAMIL 2.5 MG/ML 2 ML AMP ONE (11:05)
[2022-03-02] MEDS ORDERED: NITROGLYCERIN 1000MCG/10ML SYRINGE IV ONE (11:52)
[2022-03-02] MEDS ORDERED: HEPARIN SODIUM 1,000 UN/ML (10ML VL) IVP ONE (11:52)
[2022-03-02] MEDS ORDERED: VERAPAMIL 2.5 MG/ML 2 ML AMP IVP ONE (11:52)
--- NOTE | 2022-03-02 14:09 | IR ---
EXAMINATION TYPE: IR venogram upper ext LT DATE OF EXAM: 03/02/2022 COMPARISON: NONE HISTORY: AV fistula formation Fluoroscopy support supplied to the referring clinician. See dictated report from vascular surgery, 35.5 minutes fluoroscopy time
--- NOTE | 2022-03-02 15:38 | P.OP ---
Date of Procedure: 03/02/22 Description of Procedure: Preoperative Diagnosis: ESRD Postoperative Diagnosis: same Procedure(s) Performed: 1. Ultrasound guided [left ulnar] artery and vein access 2. Selective [left ulnar] artery angiogram 3. Selective [left ulnar] vein venogram Unsuccessful endovascular Wavel[place] Q fistula creation Anesthesia: MAC, regional Surgeon: Norma Albright Estimated Blood Loss (ml): [30 mL] Pathology: none sent Condition: stable Disposition: PACU Indications for Procedure: [The patient is a 72-year-old male] with renal disease presents to the laborer plumbing for percutaneous fistula creation of the [left] upper extremity. Access vessels were found to be of adequate size on preoperative imaging. Wrist and benefits were discussed. He seemingly understood and was willing to proceed Description of Procedure: After written and informed consent was obtained from the patient and all risks, benefits, and complications were discussed the patient was brought to the operative suite and laid in a supine position with their [left] arm outstretched on an arm board. A block was performed in PACU per anesthesia. The area of the [left] arm was prepped and draped in the usual fashion. Time out was performed and antibiotics were administered prior to access. Under ultrasound guidance the [left ulnar] artery and [ulnar] vein were accessed and a 5F sheath was placed in each vessel utilizing Seldinger technique. Once access was obtained a 3000 units heparin, 2.5mg verapamil and 400mcg of nitro mixture was injected into the artery and vein. Selective angiogram was then obtained through the arterial sheath demonstrating good radial and ulnar a natomy. A venogram was also obtained demonstrating a good size rock loader. The [ulnar] veins were good size at the desired fistula site. Two 014 wires were placed into the [ulnar] artery and [ulnar] vein. There appeared to be a significant area where the wires crossed at the level of the antecubital fossa and cause some increased anatomic difference between the artery and vein at this spot. the Bard 4F WavelinQ arterial catheter was then advanced in a monorail fashion over the 014 wire to the designated fistula site. The Bard 4F [place]avel[place]Q venous catheter was then guided to the same location. Distally towards the risks, there appeared to be adequate coaptation however approximately towards the elbow there was no coaptation. Multiple different maneuvers were performed to try to cause coaptation at this site. That was unsuccessful. Attempts were then utilized to access the cephalic vein given the short rock loader. There was some improvement of coaptation however there was no significant bowing of the filament at the arterial catheter. Given the best view in the appropriate visualization of coaptation at this level, an attempt was made to fire the catheter and create the fistula. This was unsuccessful as deemed with a repeat arteriogram. There was no evidence of extravasation. The catheters were removed and again attempts were then made to go crossed to the bridging vessel to the medial ulnar vein. The crossing bridging vessels were too small to safely advance the catheters. The ultrasound was utilized and the brachial veins were identified. They were very small in nature up until the level towards the axillary vein. Given all these findings at this time the procedure was concluded. Manual pressure was held at the venous sheath site and a TR band was placed at the ulnar arterial site. Given the anatomic variances and inability to safely create a fistula at this time, the patient will need an open surgical brachial artery to cephalic vein fistula creation Plan - Discharge Summary Discharge Rx Participant: No New Discharge Prescriptions: No Action Atorvastatin [Lipitor] 80 mg PO DAILY Aspirin EC [Ecotrin Low Dose] 81 mg PO DAILY carvediloL [Coreg*] 12.5 mg PO BID Pantoprazole [Protonix] 40 mg PO AC-BRKFST #30 tab Insulin Detemir [Levemir Flextouch Pen] 20 units SQ HS #0 Torsemide [Demadex] 40 mg PO DAILY Calcium Acetate [PhosLo] 667 mg PO BID amLODIPine [Norvasc] 10 mg PO DAILY hydrALAZINE HCL [Apresoline] 50 mg PO BID Discharge Medication List Atorvastatin [Lipitor] 80 mg PO DAILY 04/30/17 [History] Aspirin EC [Ecotrin Low Dose] 81 mg PO DAILY 10/18/20 [History] carvediloL [Coreg*] 12.5 mg PO BID 08/26/21 [History] Insulin Detemir [Levemir Flextouch Pen] 20 units SQ HS #0 09/11/21 [Rx] Pantoprazole [Protonix] 40 mg PO AC-BRKFST #30 tab 09/11/21 [Rx] Calcium Acetate [PhosLo] 667 mg PO BID 03/01/22 [History] Torsemide [Demadex] 40 mg PO DAILY 03/01/22 [History] amLODIPine [Norvasc] 10 mg PO DAILY 03/01/22 [History] hydrALAZINE HCL [Apresoline] 50 mg PO BID 03/01/22 [History] Follow up Appointment(s)/Referral(s): Norma Albright DO [STAFF PHYSICIAN] - 2 Weeks Patient Instructions/Handouts: Hemodialysis (DC), After Radial Heart Catheterization (GEN), Arteriovenous Graft Creation for Hemodialysis (DC), Procedural Sedation (ED) Activity/Diet/Wound Care/Special Instructions: Fall risk/safety precautions [facility] Follow up appointment with surgeon in 2 weeks Continue same home medications No flexing/bending/pushing/pulling/lifting greater than 5 pounds x5 days No submersion of left puncture site in pools/hot tubs/bath tubs/dish water x3 days No driving x3 days Any shortness of breath/difficulty in breathing please go to the emergency room No blood pressure/bloods draws to left arm Continue to support affected left arm-keep elevated on pillow or in left arm sling until feeling returns Be careful not to bang affected arm or place near heat source Numbness can remain for 12-24 hours May feel tingling in hand once feeling returns
[2022-03-02 15:50] VITALS: PULSE 55
[2022-03-02 16:56] VITALS: BP 170/78
== END 2022-03-02 17:19 | disposition home or self-care (01) ==
LOC: CATHCVL 09:16 → 6NMEDSUR 13:29 → CATHCVL 17:19
PROVIDERS: ATTEND Surgery
DX: E11.22 Type 2 diabetes mellitus with diabetic chronic kidney disease (principal); N18.6 End stage renal disease; I77.0 Arteriovenous fistula, acquired; Z79.4 Long term (current) use of insulin; Z79.82 Long term (current) use of aspirin; G89.18 Other acute postprocedural pain
CPT/HCPCS: 36901; 64415; 76942; 80048; 85027; C1769 ×5; C1894; C1889; J2250; J3010; J1644; J2795

== ENCOUNTER → 2022-03-14 | Outpatient (CLI) | payer OTHER ==
[2022-03-14 15:29] LABS: African American GFR (CKD) 22.3 (60.0-200.0); Albumin 3.6 g/dL (3.8-4.9); Albumin/Globulin Ratio 1.01 (1.60-3.17); Anion Gap 11.8 mmol/L (10.00-18.00); BUN/Creat Ratio 16.74 Ratio (12.00-20.00); Blood Urea Nitrogen 51.9 mg/dL (9.0-27.0); Calcium 9.1 mg/dL (8.7-10.3); Carbon Dioxide 27.2 mmol/L (20.0-27.5); Globulin 3.6 g/dL (1.6-3.3); HDL Cholesterol 24.9 mg/dL (40.00-60.00); Non-African American GFR(CKD) 19.2 (60.0-200.0); Potassium 3.7 mmol/L (3.5-5.5); Total Bilirubin 0.5 mg/dL (0.30-1.20); Total Protein 7.2 g/dL (6.2-8.2); Triglycerides 46.2 mg/dL (0.00-149.00)
[2022-03-14 15:57] LABS: Chol/HDL Ratio 3.32 Ratio; LDL Cholesterol,Direct Reflex 47.5 mg/dL (0.00-129.00)
== END | disposition home or self-care (01) ==
LOC: LABWHC1 09:44
PROVIDERS: ATTEND Internal Medicine Interventional Cardiology
DX: I10 Essential (primary) hypertension (principal); E78.2 Mixed hyperlipidemia
CPT/HCPCS: 36415; 80053; 80061; 83721

== ENCOUNTER 2022-03-29 09:58 | Day surgery (SDC) | payer OTHER ==
[2022-03-27 11:55] VITALS: BMI 26.1
[2022-03-29] MEDS ORDERED: DEXAMETHASONE SOD PHOSPHATE 4 MG/ML 1 ML VIAL IV ONE (10:46)
[2022-03-29] MEDS ORDERED: LACTATED RINGERS 1,000 ML IV SCH (10:46)
[2022-03-29] MEDS ORDERED: MIDAZOLAM 2 MG/2 ML VIAL IV PRN (10:46)
[2022-03-29] MEDS ORDERED: LIDOCAINE 1% (10MG/ML) FOR IV START INTRADERMA PRN (10:46)
[2022-03-29] MEDS ORDERED: ONDANSETRON 4 MG/2 ML VIAL IVP ONE (10:46)
[2022-03-29] MEDS ORDERED: HYDROmorphone 0.5 MG/0.5 ML SYRINGE IVP PRN (10:46)
[2022-03-29] MEDS ORDERED: SODIUM CHLORIDE 0.9% 500 ML 500 ML IV ONE (11:22)
[2022-03-29 11:24] LABS: Glucose,Whole Blood 198 mg/dL (70-110)
[2022-03-29] MEDS ORDERED: fentaNYL (PF) 50 MCG/ML 2 ML AMP IV ONE (12:11)
[2022-03-29] MEDS ORDERED: MIDAZOLAM 2 MG/2 ML VIAL IV ONE (12:11)
[2022-03-29] MEDS ORDERED: HEPARIN SODIUM,PORCINE 5,000 UNIT/ML 1 ML VIAL ONE (12:21)
[2022-03-29] MEDS ORDERED: fentaNYL (PF) 50 MCG/ML 2 ML AMP ONE (12:21)
[2022-03-29] MEDS ORDERED: LIDOCAINE 2% INJ 20 MG/ML (2 ML VIAL) ONE (12:21)
[2022-03-29] MEDS ORDERED: ROPIVACAINE 5 MG/ML 30 ML VIAL ONE (12:21)
[2022-03-29] MEDS ORDERED: MIDAZOLAM 2 MG/2 ML VIAL ONE (12:21)
[2022-03-29] MEDS ORDERED: PROPOFOL 10 MG/ML 20 ML VIAL IV ONE (12:21)
--- NOTE | 2022-03-29 12:53 | P.ANPRN ---
Procedure Note - Anesthesia - Nerve Block Performed Left Supraclavicular Time Out Performed: Yes (12:10) Date of Procedure: 03/29/22 Procedure Start Time: 12:10 Procedure Stop Time: 12:08 Location of Patient: PreOp Indication: Acute Post-Operative Pain, Requested by Surgeon (Dr Albright) Sedation Type: Sedate with meaningful contact maintained Preparation: Sterile Prep Position: Supine Catheter: None Needle Types: Pajunk Needle Gauge: Other (see comment) (22g) Ultrasound used to visualize needle placement: Yes Ultrasound used to observe medication spread: Yes Injectate: 0.5% Ropivacaine (see comment for volume) (20cc) Blood Aspirated: No Pain Paresthesia on Injection Noted: No Resistance on Injection: Normal Image Stored and Saved: Yes Events: Uneventful and Well Tolerated
[2022-03-29] MEDS ORDERED: HEPARIN SODIUM,PORCINE 2,000 UNIT in SODIUM CHLORIDE 0.9% 500 ML 500 ML IRRIGATION ONE (13:15)
[2022-03-29] MEDS ORDERED: ceFAZolin 2 GM in SODIUM CHLORIDE 0.9% 500 ML 500 ML IRRIGATION ONE (13:16)
--- NOTE | 2022-03-29 14:31 | P.OP ---
Date of Procedure: 03/29/22 Description of Procedure: Preoperative diagnosis: [End-stage renal disease] Postoperative diagnosis: Same Procedure: [Left upper extremity brachiocephalic fistula creation] Surgeon: Norma Albright D.O. EBL: [Less than 10 mL] IV fluids: [See records] Urine output: [Not measured] Drains: [None] Complications: [None immediately apparent] Condition: [Stable to recovery] Operative indication and findings: [The patient is a 72-year-old male with end- stage renal disease was been utilizing a tunneled dialysis catheter since July 2021 and initially attempts were made to try to create an endovascular fistula and was unsuccessful therefore he presents today for brachiocephalic fistula creation. Risks and benefits have been discussed. He seemingly understood and was willing to proceed.] Procedure in detail: [The patient was taken to the operative suite and placed in supine position. Left upper extremity is prepped and draped in usual sterile fashion. He previously had undergone a regional block but due to his ability to continue moving his arm Gen. LMA was induced. Just proximally and he will fossa, an incision was made and carried down through the subcutaneous tissues. The cephalic vein was identified. Further dissection was completed through the fascia and the brachial artery was identified. Tedious circumferential dissection was performed at the brachial artery and proximal and distal control was gained with vessel loop. The patient was heparinized. Attention was then turned towards the cephalic vein, tedious dissection was performed and a sufficient portion of the vein was cleared from its surrounding tissues. It was transected and the remaining portion was suture ligated with 6-0 silk. The vein was marked and it was serially dilated. It was flushed with heparinized saline. Flow was occluded through the brachial artery and an arteriotomy is performed and enlarged with the Davis scissors. Using 6-0 Prolene, an anastomosis was created. Prior to completion of the anastomosis, the vein was not of backbleeding, the arterial side was flushed proximal and distally taking care not to cause any distal emboli down the hand. The anastomoses were completed. Hemostasis was achieved with Surgicel. The area was irrigated. There was a good palpable thrill through the fistula as well as a good palpable pulse at the radial artery. The area was again irrigated with antibiotic solution. The deep dermal tissues were reapproximated using 3-0 Vicryl. The skin was reapproximated with subcuticular running sutures of 4-0 Monocryl. Glue was placed. Dressing was placed with the patient was allowed awaken from anesthesia and transferred to recovery in stable condition having tolerated his procedure well. ] Plan - Discharge Summary Discharge Rx Participant: No New Discharge Prescriptions: No Action Atorvastatin [Lipitor] 80 mg PO DAILY Aspirin EC [Ecotrin Low Dose] 81 mg PO DAILY carvediloL [Coreg*] 12.5 mg PO BID Pantoprazole [Protonix] 40 mg PO AC-BRKFST #30 tab Insulin Detemir [Levemir Flextouch Pen] 20 units SQ HS #0 Torsemide [Demadex] 40 mg PO DAILY Calcium Acetate [PhosLo] 667 mg PO HS amLODIPine [Norvasc] 10 mg PO DAILY hydrALAZINE HCL [Apresoline] 50 mg PO BID Discharge Medication List Atorvastatin [Lipitor] 80 mg PO DAILY 04/30/17 [History] Aspirin EC [Ecotrin Low Dose] 81 mg PO DAILY 10/18/20 [History] carvediloL [Coreg*] 12.5 mg PO BID 08/26/21 [History] Insulin Detemir [Levemir Flextouch Pen] 20 units SQ HS #0 09/11/21 [Rx] Pantoprazole [Protonix] 40 mg PO AC-BRKFST #30 tab 09/11/21 [Rx] Calcium Acetate [PhosLo] 667 mg PO HS 03/01/22 [History] Torsemide [Demadex] 40 mg PO DAILY 03/01/22 [History] amLODIPine [Norvasc] 10 mg PO DAILY 03/01/22 [History] hydrALAZINE HCL [Apresoline] 50 mg PO BID 03/01/22 [History] Follow up Appointment(s)/Referral(s): Norma Albright DO [STAFF PHYSICIAN] - 2 Weeks Activity/Diet/Wound Care/Special Instructions: Sling for arm next 24h Continue home medication. Continue diet as tolerated. Continue breathing as previous. May remove the dressing in the next 24-48 hours. Light activity. No heavy lifting with left arm. No IVs or blood pressures in the left arm. Follow-up in the office in 2 weeks. May utilize [id number] medications for pain control. Discharge Disposition: HOME SELF-CARE
[2022-03-29 14:38] VITALS: TEMP 97.2
[2022-03-29 14:59] LABS: Glucose,Whole Blood 192 mg/dL (70-110)
[2022-03-29 15:32] LABS: Glucose,Whole Blood 209 mg/dL (70-110)
[2022-03-29 15:51] VITALS: BP 167/66; PULSE 59; RESP 18
== END 2022-03-29 16:30 | disposition home or self-care (01) ==
LOC: OR 09:58
PROVIDERS: ATTEND Surgery
DX: I12.0 Hypertensive chronic kidney disease with stage 5 chronic kidney disease or end stage renal disease (principal); N18.6 End stage renal disease; G89.18 Other acute postprocedural pain; E11.22 Type 2 diabetes mellitus with diabetic chronic kidney disease; Z79.82 Long term (current) use of aspirin; Z79.4 Long term (current) use of insulin; Z79.899 Other long term (current) drug therapy; Z95.1 Presence of aortocoronary bypass graft; Z99.2 Dependence on renal dialysis; I25.10 Atherosclerotic heart disease of native coronary artery without angina pectoris; I25.2 Old myocardial infarction; E11.69 Type 2 diabetes mellitus with other specified complication; E78.5 Hyperlipidemia, unspecified; M19.90 Unspecified osteoarthritis, unspecified site
CPT/HCPCS: 64417; 76942; 84132; 36821; J2250; J1644; J1100; J0690; J2405; J3010; J2795; J2704; J2001

== ENCOUNTER 2022-10-17 12:21 | Day surgery (SDC) | payer OTHER ==
[2022-10-12 15:24] VITALS: BMI 27.4
[~2022-10-17 12:21] MED LIST changes: +ALPRAZolam 0.25 MG TAB PO PRN; +ASPIRIN 325 MG TAB PO PRN; -LIDOCAINE 1% 20 ML VIAL (10MG/ML) FOR IV START INTRADERMA PRN; -ONDANSETRON 4 MG/2 ML VIAL IVP ONE; +SODIUM CHLORIDE 0.9% 1,000 ML in EMPTY BAG 1 BAG IV ONE
[2022-10-17 12:47] LABS: Glucose,Whole Blood 53 mg/dL (70-110)
[2022-10-17 12:51] VITALS: RESP 18; TEMP 97.6
[2022-10-17 12:54] LABS: Glucose,Whole Blood 55 mg/dL (70-110)
[2022-10-17 13:19] LABS: Anisocytosis Slight; MCH 30.9 pg (25.0-35.0); MCHC 34.4 g/dL (31.0-37.0); MCV 89.8 fL (80.0-100.0); Mean Platelet Volume 8.2; Platelet Count 107 k/uL (150-450); RBC 3.23 m/uL (4.30-5.90); RDW 16.2 % (11.5-15.5); WBC 10.4 k/uL (3.8-10.6)
[2022-10-17 13:41] LABS: Glucose,Whole Blood 88 mg/dL (70-110)
[2022-10-17 13:45] LABS: Calcium 8.5 mg/dL (8.4-10.2); Potassium 4.4 mmol/L (3.5-5.1)
[2022-10-17] MEDS ORDERED: LIDOCAINE 1% INJ 10MG/ML (5 ML VIAL-PF) SQ ONE (13:57)
[2022-10-17] MEDS ORDERED: fentaNYL (PF) 50 MCG/ML 2 ML AMP IV ONE (13:58)
[2022-10-17] MEDS ORDERED: MIDAZOLAM 2 MG/2 ML VIAL IV ONE (13:58)
[2022-10-17 14:26] LABS: Eosinophils # (M) 0.52 k/uL (0-0.7); Lymphocytes # (M) 0.83 k/uL (1.0-4.8); Monocytes # (M) 1.46 k/uL (0-1.0); Neutrophils # (M) 7.59 k/uL (1.3-7.7); Neutrophils % (M) 73 %; Nucleated Red Blood Cells 0 /100 WBC (0-0); Total Cells Counted 100
[2022-10-17 14:27] LABS: Poikilocytosis (M) Present; Polychromasia Present
[2022-10-17] MEDS ORDERED: IOPAMIDOL-370 100ML BTL INJ ONE (14:28)
--- NOTE | 2022-10-17 14:47 | IR ---
EXAMINATION TYPE: IR fistula/abscess/sinus tract DATE OF EXAM: 10/17/2022 COMPARISON: NONE HISTORY: Fluoroscopy time. Fluoroscopy was provided to the referring clinician.
--- NOTE | 2022-10-17 14:53 | P.OP ---
Date of Procedure: 10/17/22 Description of Procedure: Preoperative diagnosis: Malfunctioning left upper extremity brachiocephalic fistula, end-stage renal disease Postoperative diagnosis: Same Procedure: #1 ultrasound guided cephalic vein access #2 fistulogram #3 percutaneous transluminal balloon venoplasty of the cephalic vein using 8 x 60, DCB 7 x 60 and 6 x 60 #4 moderate conscious sedation 33 minutes Surgeon: Norma Albright D.O. EBL: Less than 10 mL IV fluids: See records Urine output: Not measured Drains: None Complications: None immediately apparent Condition: Stable Operative indication and findings: Sha is a 72-year-old male with end-stage renal disease and left upper extremity brachiocephalic fistula. It has been functioning well but recently had increasing issues with needing to have prolonged pressure hold for bleeding. Ultrasound did show areas of stenosis therefore he is brought here today for fistulogram. Procedure in detail: [Patient was brought to the special suite and placed in supine position. Left upper extremity is prepped and draped in usual sterile fashion. A preprocedure timeout was performed, all parties were in agreement. Using ultrasound, the fistula was identified, skin overlying was anesthetized 1% lidocaine plain and using a micro-access needle, the fistula was accessed. Aria funmilayo technique was used to place a 6-Swedish sheath. A fistulogram was performed showing 3 areas of stenosis, 2 through the fistula and one at the level of the connection to the axillary vein. Catheters and wires were used to cross the areas stenosis. Balloon angioplasty with 8 x 60 balloon was performed at all sites with significant improvement of the areas of stenosis. A 7 x 60 drug-coated balloon 6 x 60 drug-coated balloon were used through the itself with a improved results. The fistula itself had a significantly improved thrill. There was a small area of possible stenosis at the proximal inflow however no evidence of this on imaging therefore this time no further intervention was performed. Catheters and wires were removed. Suture was placed for hemostasis. The patient was allowed to return to recovery in stable condition having tolerated the procedure well Plan - Discharge Summary Discharge Rx Participant: No New Discharge Prescriptions: No Action Atorvastatin [Lipitor] 80 mg PO DAILY Aspirin EC [Ecotrin Low Dose] 81 mg PO DAILY carvediloL [Coreg*] 12.5 mg PO BID Pantoprazole [Protonix] 40 mg PO AC-BRKFST #30 tab Torsemide [Demadex] 40 mg PO DAILY Calcium Acetate [PhosLo] 667 mg PO HS amLODIPine [Norvasc] 10 mg PO DAILY hydrALAZINE HCL [Apresoline] 50 mg PO BID Insulin Detemir [Levemir Flextouch Pen] 35 units SQ HS Discharge Medication List Atorvastatin [Lipitor] 80 mg PO DAILY 04/30/17 [History] Aspirin EC [Ecotrin Low Dose] 81 mg PO DAILY 10/18/20 [History] carvediloL [Coreg*] 12.5 mg PO BID 08/26/21 [History] Pantoprazole [Protonix] 40 mg PO AC-BRKFST #30 tab 09/11/21 [Rx] Calcium Acetate [PhosLo] 667 mg PO HS 03/01/22 [History] Torsemide [Demadex] 40 mg PO DAILY 03/01/22 [History] amLODIPine [Norvasc] 10 mg PO DAILY 03/01/22 [History] hydrALAZINE HCL [Apresoline] 50 mg PO BID 03/01/22 [History] Insulin Detemir [Levemir Flextouch Pen] 35 units SQ HS 10/12/22 [History] Follow up Appointment(s)/Referral(s): Norma Albright DO [STAFF PHYSICIAN] - 03/13/23 (Keep previously made 6 month appointment with ultrasound) Activity/Diet/Wound Care/Special Instructions: May remove suture at dialysis. Resume regular diet. Resume regular activity. Resume regular bathing. No heavy lifting. Discharge Disposition: HOME SELF-CARE
[2022-10-17 15:26] VITALS: BP 136/64; PULSE 74
== END 2022-10-17 15:27 | disposition home or self-care (01) ==
LOC: CATHCVL 12:21
PROVIDERS: ATTEND Surgery
DX: T82.858A Stenosis of other vascular prosthetic devices, implants and grafts, initial encounter (principal); E11.22 Type 2 diabetes mellitus with diabetic chronic kidney disease; N18.6 End stage renal disease; Z79.4 Long term (current) use of insulin; Z79.82 Long term (current) use of aspirin; Z99.2 Dependence on renal dialysis
CPT/HCPCS: 80048; 85025; 36902; J2250; J2001; J3010; Q9967